=== PATIENT | male | born 1970 | race Hispanic/Latino ===

== ENCOUNTER 2020-01-30 00:22 | Emergency (ER) | payer SELFPAY ==
[2020-01-30] MEDS ORDERED: cloNIDine HCL 0.1 MG TAB ONE (01:14)
[2020-01-30] MEDS ORDERED: AMLODIPINE 5 MG TAB ONE (01:17)
[2020-01-30 02:12] LABS: Absolute Lymphocytes (CBC) 1.1 K/uL (0.7-4.9); Basophils % 0.4 % (0-1.3); Hematocrit 47.2 % (39.6-49.0); Lymphocytes % 9.8 % (15.3-44.8); RBC Red Blood Cell Count 5.03 M/uL (4.33-5.43)
[2020-01-30 02:36] LABS: ALT/SGPT 79 U/L (12-78); AST/SGOT 61 U/L (15-37); Albumin 3.8 g/dL (3.4-5.0); Alkaline Phosphatase 137 U/L (45-117); BUN Blood Urea Nitrogen 15 mg/dL (7-18); Bicarbonate 33 mmol/L (21-32); Bilirubin Direct 0.1 mg/dL (0-0.2); Bilirubin Total 0.5 mg/dL (0.2-1.0); Glucose Level 242 mg/dL (74-106); Magnesium 2.1 mg/dL (1.8-2.4); NT PRO-BNP 78 pg/mL (<125); Potassium 3.7 mmol/L (3.5-5.1); Protein, Total 7.4 g/dL (6.4-8.2); Sodium Level 137 mmol/L (136-145); Troponin (Emerg Dept Use Only) 0.02 ng/mL (0.0-0.045)
[2020-01-30 02:43] LABS: Urine Blood NEGATIVE (NEG); Urine Glucose 1+ (NEG); Urine Protein NEGATIVE (NEG); Urine Specific Gravity 1.025 (1.005-1.030); Urine pH 7.5 (5.0-7.0)
--- NOTE | 2020-01-30 02:43 | ER ---
Nurse's Notes [facility] Name: Zay Werner Jr Age: 49 yrs Sex: Male : 1970 Arrival Date: 01/30/2020 Time: 00:23 Bed 6 Private MD: Diagnosis: Essential (primary) hypertension;Acute sinusitis;Obesity, unspecified;Low back pain;Tobacco abuse counseling;Tobacco use;Type 2 diabetes mellitus;Hyperglycemia, unspecified Presentation: 01/29 00:33 Chief complaint: Patient states: i have dry cough for 2 weeks, pounding headache in the mg2 left mosque and mild bilateral flank pain for 1 week. denies fever. Coronavirus screen: Proceed with normal triage. Patient reports a cough. Patient denies shortness of breath or difficulty breathing. Patient denies measured and/or subjective temperature greater than 100.4F prior to today's visit. Patient denies travel on a cruise ship or to a country the [facility] currently lists as an affected area. Patient denies contact with known and/or suspected case of COVID-19. Ebola Screen: No symptoms or risks identified at this time. Initial Sepsis Screen: Does the patient meet any 2 criteria? No. Patient's initial sepsis screen is negative. Does the patient have a suspected source of infection? No. Patient's initial sepsis screen is negative. Risk Assessment: Do you want to hurt yourself or someone else? Patient reports no desire to harm self or others. Onset of symptoms was January 2020. 00:33 Method Of Arrival: Ambulatory mg2 00:33 Acuity: UMBERTO 3 mg2 Historical: - Allergies: 00:38 No Known Allergies; mg2 - Home Meds: 00:38 None [Active]; mg2 - PMHx: 00:38 Hypertension; mg2 - PSHx: 00:38 None; mg2 - Immunization history:: Flu vaccine is not up to date. - Social history:: Smoking status: Patient reports the use of cigarette tobacco products, denies chronic smoking, but will smoke occasionally, smokes one-half pack cigarettes per day, Patient uses alcohol, occasionally. Patient/guardian denies using street drugs, IV drugs. Screenin:38 Abuse screen: Denies threats or abuse. Denies injuries from another. Nutritional mg2 screening: No deficits noted. Tuberculosis screening: No symptoms or risk factors identified. Fall Risk. Assessment: 02:00 General: Appears in no apparent distress. comfortable, Behavior is calm, cooperative. mg2 Pain: Complains of pain in back. Neuro: Level of Consciousness is awake, alert, obeys commands, Oriented to person, place, time, situation, Reports headache. Cardiovascular: Capillary refill < 3 seconds Patient's skin is warm and dry. Respiratory: Reports cough that is non-productive, dry, since 2 weeks Airway is patent Respiratory effort is even, unlabored, Respiratory pattern is regular, symmetrical. GI: No signs and/or symptoms were reported involving the gastrointestinal system. : Reports pain in bilateral flank(s). EENT: No signs and/or symptoms were reported regarding the EENT system. Derm: Skin is intact, is healthy with good turgor, Skin is pink, warm \T\ dry. normal. Musculoskeletal: Circulation, motion, and sensation intact. Capillary refill < 3 seconds. 02:31 Reassessment: Patient appears in no apparent distress at this time. Patient and/or mg2 family updated on plan of care and expected duration. Pain level reassessed. Patient is alert, oriented x 3, equal unlabored respirations, skin warm/dry/pink. 03:01 Reassessment: Patient denies pain at this time. Patient states feeling better. mg2 Vital Signs: 00:33 BP 213 / 122; Pulse 99; Resp 18; Temp 98.1(O); Pulse Ox 96% on R/A; mg2 01:59 BP 173 / 110; Pulse 95; Resp 18; Pulse Ox 94% on R/A; mg2 02:00 BP 166 / 98; Pulse 94; Resp 18; Pulse Ox 94% on R/A; mg2 02:50 BP 153 / 98; Pulse 94; Resp 18; Pulse Ox 94% on R/A; mg2 ED Course: 00:23 Patient arrived in ED. cl3 00:26 Jayy Andres MD is Attending Physician. shakir 00:33 Finesse Drake RN is Primary Nurse. mg2 00:38 Triage completed. mg2 00:38 Arm band placed on. mg2 00:39 No provider procedures requiring assistance completed. mg2 01:38 XRAY Chest (1 view) In Process Unspecified. EDMS 01:39 Lumbar Spine (3 Views) XRAY: low back pain In Process Unspecified. EDMS 01:40 Inserted saline lock: 20 gauge in right forearm, using aseptic technique. Blood mg2 collected. 02:01 Patient has correct armband on for positive identification. Call light in reach. Side mg2 rails up X 1. hall monitor on. Pulse ox on. NIBP on. Door closed. Warm blanket given. 02:42 Dee Dee Tinajero MD is Referral Physician. shakir 02:42 Domo Flannery MD is Referral Physician. shakir 03:02 IV discontinued, intact, bleeding controlled, No redness/swelling at site. Pressure mg2 dressing applied. Administered Medications: 01:30 Drug: Norvasc 10 mg Route: PO; mg2 02:31 Follow up: Response: No adverse reaction; Blood pressure is lowered mg2 01:35 Drug: cloNIDine 0.1 mg Route: PO; mg2 02:31 Follow up: Response: No adverse reaction; Blood pressure is lowered mg2 03:01 Drug: Lisinopril 5 mg Route: PO; mg2 03:01 Follow up: Response: No adverse reaction; Medication administered at discharge. mg2 Outcome: 02:42 Discharge ordered by . shakir 03:02 Discharged to home ambulatory. mg2 03:02 Condition: stable 03:02 Discharge instructions given to patient, Instructed on discharge instructions, follow up and referral plans. medication usage, Demonstrated understanding of instructions, follow-up care, medications, Prescriptions given X 4. 03:03 Patient left the ED. mg2 Signatures: Dispatcher [employer] EDMS Jayy Andres MD MD cha Gardose, Michele, RN RN mg2 Catherine Delcid cl3 Corrections: (The following items were deleted from the chart) 02:50 02:30 BP 166 / 98; Pulse 94bpm; Resp 18bpm; Pulse Ox 94% RA; mg2 mg2 02:50 02:00 BP 153 / 98; Pulse 94bpm; Resp 18bpm; Pulse Ox 94% RA; mg2 mg2
--- NOTE | 2020-01-30 02:43 | EDPHYS ---
Physician Documentation [facility] Name: Zay Werner Jr Age: 49 yrs Sex: Male : 1970 Arrival Date: 01/30/2020 Time: 00:23 Bed 6 Private MD: DINA Physician Jayy Andres HPI: 01/29 00:50 This 49 yrs old Male presents to ER via Ambulatory with complaints of High shakir Blood Pressure, Coughing Up Blood. 00:50 The patient has elevated blood pressure and discovered this at home. Onset: The shakir symptoms/episode began/occurred 1 week(s) ago. Modifying factors: The symptoms are aggravated by activity, The symptoms are alleviated by remaining still. Historical: - Allergies: 00:38 No Known Allergies; mg2 - Home Meds: 00:38 None [Active]; mg2 - PMHx: 00:38 Hypertension; mg2 - PSHx: 00:38 None; mg2 - Immunization history:: Flu vaccine is not up to date. - Social history:: Smoking status: Patient reports the use of cigarette tobacco products, denies chronic smoking, but will smoke occasionally, smokes one-half pack cigarettes per day, Patient uses alcohol, occasionally. Patient/guardian denies using street drugs, IV drugs. ROS: 00:51 Constitutional: Negative for fever, chills, and weight loss, Eyes: Negative for injury, shakir pain, redness, and discharge, Neck: Negative for injury, pain, and swelling, Cardiovascular: Negative for chest pain, palpitations, and edema, Abdomen/GI: Negative for abdominal pain, nausea, vomiting, diarrhea, and constipation, Back: Negative for injury and pain, : Negative for injury, bleeding, discharge, and swelling, MS/Extremity: Negative for injury and deformity, Skin: Negative for injury, rash, and discoloration, Neuro: Negative for headache, weakness, numbness, tingling, and seizure, Psych: Negative for depression, anxiety, suicide ideation, homicidal ideation, and hallucinations, Allergy/Immunology: Negative for hives, rash, and allergies, Endocrine: Negative for neck swelling, polydipsia, polyuria, polyphagia, and marked weight changes, Hematologic/Lymphatic: Negative for swollen nodes, abnormal bleeding, and unusual bruising. 00:51 ENT: Positive for nose bleed. 00:51 Respiratory: Positive for cough. 00:51 Back: Positive for decreased range of motion, pain at rest, of the left low back and right low back. 02:30 Neuro: Negative for headache, pt complains of facial pain, maxillary pain and frontal shakir sinus pain vs headache. Exam: 00:51 Constitutional: This is a well developed, well nourished patient who is awake, alert, shakir and in no acute distress. Head/Face: Normocephalic, atraumatic. Eyes: Pupils equal round and reactive to light, extra-ocular motions intact. Lids and lashes normal. Conjunctiva and sclera are non-icteric and not injected. Cornea within normal limits. Periorbital areas with no swelling, redness, or edema. Neck: Trachea midline, no thyromegaly or masses palpated, and no cervical lymphadenopathy. Supple, full range of motion without nuchal rigidity, or vertebral point tenderness. No Meningismus. Chest/axilla: Normal chest wall appearance and motion. Nontender with no deformity. No lesions are appreciated. Cardiovascular: Regular rate and rhythm with a normal S1 and S2. No gallops, murmurs, or rubs. Normal PMI, no JVD. No pulse deficits. Respiratory: Lungs have equal breath sounds bilaterally, clear to auscultation and percussion. No rales, rhonchi or wheezes noted. No increased work of breathing, no retractions or nasal flaring. Abdomen/GI: Soft, non-tender, with normal bowel sounds. No distension or tympany. No guarding or rebound. No evidence of tenderness throughout. Back: No spinal tenderness. No costovertebral tenderness. Full range of motion. Skin: Warm, dry with normal turgor. Normal color with no rashes, no lesions, and no evidence of cellulitis. MS/ Extremity: Pulses equal, no cyanosis. Neurovascular intact. Full, normal range of motion. Neuro: Awake and alert, GCS 15, oriented to person, place, time, and situation. Cranial nerves II-XII grossly intact. Motor strength 5/5 in all extremities. Sensory grossly intact. Cerebellar exam normal. Normal gait. Psych: Awake, alert, with orientation to person, place and time. Behavior, mood, and affect are within normal limits. 00:51 ENT: Nose: is normal, no acute changes, Mouth: is normal, no acute changes, Lips: normal, Oral mucosa: normal, pink and intact, moist, Gums: normal with healthy appearance, Posterior pharynx: no acute changes, Airway: normal, no evidence of obstruction. 02:33 Neck: ROM/movement: is normal, no acute changes, Meningeal signs: are not present, [facility] Kernig's sign is negative, Brudzinski's sign is negative, nuchal rigidity, is not appreciated. 02:38 ECG was reviewed by the Attending Physician. [facility] Vital Signs: 00:33 BP 213 / 122; Pulse 99; Resp 18; Temp 98.1(O); Pulse Ox 96% on R/A; mg2 01:59 BP 173 / 110; Pulse 95; Resp 18; Pulse Ox 94% on R/A; mg2 02:00 BP 166 / 98; Pulse 94; Resp 18; Pulse Ox 94% on R/A; mg2 02:50 BP 153 / 98; Pulse 94; Resp 18; Pulse Ox 94% on R/A; mg2 MDM: 00:26 Patient medically screened. [facility] 00:55 Data reviewed: vital signs, nurses notes, lab test result(s), EKG, radiologic studies, [facility] plain films. 01/29 00:49 Order name: Basic Metabolic Panel; Complete Time: 02:40 [facility] 01/29 00:49 Order name: CBC with Diff; Complete Time: 02:19 [facility] 01/29 00:49 Order name: LFT's; Complete Time: 02:40 [facility] 01/29 00:49 Order name: Magnesium; Complete Time: 02:40 [facility] 01/29 00:49 Order name: NT PRO-BNP; Complete Time: 02:40 [facility] 01/29 00:49 Order name: Troponin (emerg Dept Use Only); Complete Time: 02:40 [facility] 01/29 00:49 Order name: XRAY Chest (1 view) [facility] 01/29 00:49 Order name: EKG; Complete Time: 00:50 [facility] 01/29 00:49 Order name: Cardiac monitoring; Complete Time: 01:59 [facility] 01/29 00:49 Order name: Lumbar Spine (3 Views) XRAY: low back pain [facility] 01/29 01:44 Order name: Urine Dipstick--Ancillary (enter results) ne 01/29 00:49 Order name: EKG - Nurse/Tech; Complete Time: 01:59 [facility] 01/29 00:49 Order name: IV Saline Lock; Complete Time: [facility] 01/29 00:49 Order name: Labs collected and sent; Complete Time: [facility] 01/29 00:49 Order name: O2 Per Protocol; Complete Time: [facility] 01/29 00:49 Order name: O2 Sat Monitoring; Complete Time: [facility] 01/29 00:49 Order name: Urine Dipstick-Ancillary (obtain specimen); Complete Time: [facility] EC:38 Rate is 90 beats/min. Rhythm is regular. QRS [place] is Normal. NM interval is normal. QRS shakir interval is normal. QT interval is normal. No Q waves. T waves are Normal. No ST changes noted. Clinical impression: Normal ECG and No evidence of ischemia. Administered Medications: 01:30 Drug: Norvasc 10 mg Route: PO; mg2 02:31 Follow up: Response: No adverse reaction; Blood pressure is lowered mg2 01:35 Drug: cloNIDine 0.1 mg Route: PO; mg2 02:31 Follow up: Response: No adverse reaction; Blood pressure is lowered mg2 03:01 Drug: Lisinopril 5 mg Route: PO; mg2 03:01 Follow up: Response: No adverse reaction; Medication administered at discharge. mg2 Disposition: 01/30/20 02:42 Discharged to Home. Impression: Essential (primary) hypertension, Acute sinusitis, Obesity, unspecified, Low back pain, Tobacco abuse counseling, Tobacco use, Type 2 diabetes mellitus, Hyperglycemia, unspecified. - Condition is Stable. - Discharge Instructions: Back Pain, Adult, Hypertension, Musculoskeletal Pain, Obesity, Adult, Hypertension, [id number], Back Pain, Adult, [id number], Tobacco Use Disorder, Diabetes Mellitus and Food, How to Take Your Blood Pressure, [id number], Managing Your Hypertension, Type 2 Diabetes Mellitus, Self Care, Adult, Type 2 Diabetes Mellitus, Self Care, Adult, [id number]. - Prescriptions for Norvasc 5 mg Oral Tablet - take 1 tablet by ORAL route once daily; 20 tablet. Tylenol- Codeine #3 300-30 mg Oral Tablet - take 2 tablets by ORAL route every 6 hours As needed; 24 tablet. Lisinopril 5 mg Oral Tablet - take 1 tablet by ORAL route once daily; 20 tablet. Bactrim DS 800- 160 mg Oral Tablet - take 1 tablet by ORAL route every 12 hours for 10 days; 20 tablet. - Medication Reconciliation Form, Thank You Letter, Antibiotic Education, Prescription Opioid Use form. - Follow up: Private Physician; When: 2 - 3 days; Reason: Recheck today's complaints, Continuance of care, Re-evaluation by your physician. Follow up: Dee Dee Tinajero; When: 5 - 6 days; Reason: Recheck today's complaints, Re-evaluation by your physician. Follow up: A Flannery; When: 2 - 3 days; Reason: Recheck today's complaints, Re-evaluation by your physician. - Problem is new. - Symptoms have improved. Signatures: Dispatcher [employer] EDMS Jayy Andres MD MD cha Gardose, Michele, RN RN mg2 Corrections: (The following items were deleted from the chart) 03:03 02:42 01/30/2020 02:42 Discharged to Home. Impression: Essential (primary) mg2 hypertension; Acute sinusitis; Obesity, unspecified; Low back pain; Tobacco abuse counseling; Tobacco use; Type 2 diabetes mellitus; Hyperglycemia, unspecified. Condition is Stable. Discharge Instructions: Back Pain, Adult, Hypertension, Musculoskeletal Pain, Obesity, Adult, Hypertension, Raek-ff-[id number], Back Pain, Adult, Mtir-mr-Gyur, Tobacco Use Disorder, How to Take Your Blood Pressure, [id number], Managing Your Hypertension. Prescriptions for Norvasc 5 mg Oral Tablet - take 1 tablet by ORAL route once daily; 20 tablet, Tylenol-Codeine #3 300-30 mg Oral Tablet - take 2 tablets by ORAL route every 6 hours As needed; 24 tablet, Lisinopril 5 mg Oral Tablet - take 1 tablet by ORAL route once daily; 20 tablet, Bactrim DS 800-160 mg Oral Tablet - take 1 tablet by ORAL route every 12 hours for 10 days; 20 tablet. and Forms are Medication Reconciliation Form, Thank You Letter, Antibiotic Education, Prescription Opioid Use. Follow up: Private Physician; When: 2 - 3 days; Reason: Recheck today's complaints, Continuance of care, Re-evaluation by your physician. Follow up: Dee Dee Tinajero; When: 5 - 6 days; Reason: Recheck today's complaints, Re-evaluation by your physician. Follow up: A Flannery; When: 2 - 3 days; Reason: Recheck today's complaints, Re-evaluation by your physician. Problem is new. Symptoms have improved. shakir
[2020-01-30] MEDS ORDERED: lisinopriL 5 MG TAB ONE (02:57)
[2020-01-30 03:09] VITALS: TEMP 98.1
[2020-01-30 03:11] VITALS: O2SAT 94
[2020-01-30 03:13] VITALS: BP 153/98
--- NOTE | 2020-01-30 07:34 | RAD REPORT ---
EXAM DESCRIPTION: RAD - Chest Single View - 01/30/2020 1:39 am CLINICAL HISTORY: COUGH Chest pain. COMPARISON: CHEST SINGLE VIEW dated 05/14/2014; CHEST PA AND LAT 2 VIEW dated 04/01/2014; CHEST SINGLE VIEW dated 06/23/2011 FINDINGS: Portable technique limits examination quality. The lungs are grossly clear. The heart is normal in size. No displaced fractures. IMPRESSION: No acute intrathoracic process suspected.
--- NOTE | 2020-01-30 07:35 | RAD REPORT ---
EXAM DESCRIPTION: RAD - Lumbar Spine 3 Views - 01/30/2020 1:39 am CLINICAL HISTORY: PAIN Radiculopathy COMPARISON: No comparisons FINDINGS: Vertebral body heights appear maintained. No compression fracture noted. Mild spondylosis is seen at L5-S1 with disc thinning and small posterior osteophyte. Small posterior osteophyte also s een at L3-4 and L4-5. No spondylolysis or spondylolisthesis. IMPRESSION: Mild lower lumbar spondylosis.
--- NOTE | 2020-01-31 12:06 | EKG ---
Test Date: 2020-01-30 Test Time: 01:38:20 Environmental Conflict Manager: MATEUSZ MEASUREMENT RESULTS: Intervals: Rate: 90 PA: 164 QRSD: 104 QT: 388 QTc: 474 Mullen: P: 49 PA: 164 QRS: -47 T: 45 INTERPRETIVE STATEMENTS: Normal sinus rhythm Incomplete right bundle branch block Left anterior fascicular block Inferior infarct, age undetermined Abnormal ECG Compared to ECG 05/14/2014 19:35:48 Incomplete right bundle-branch block now present Left anterior fascicular block now present Myocardial infarct finding now present T-wave abnormality no longer present Electronically Signed On 01-31-20 12:03:07 CDT by David Hernnadez
== END 2020-01-30 03:03 | disposition home or self-care (01) ==
LOC: ER 00:22
DX: J01.90 Acute sinusitis, unspecified (principal); I10 Essential (primary) hypertension; M54.5 Low back pain; E11.65 Type 2 diabetes mellitus with hyperglycemia; E66.9 Obesity, unspecified; Z72.0 Tobacco use; Z71.6 Tobacco abuse counseling
CPT/HCPCS: 36415; 71045; 72100; 80048; 80076; 81003; 83735; 83880; 84484; 85025; 93005; 99284

== ENCOUNTER 2022-02-17 21:24 | Inpatient (IN) | payer SELFPAY ==
--- OUTSIDE RECORDS SUMMARY | 2022-02-17 21:27 | XMS REPORT | Continuity of Care Document ---
:1970 Author Organization [facility] t Address [facility] [place] [address] Care Team Providers Name Role Phone PCP, DOES NOT HAVE A Primary Care Physician Unavailable Tay Cardenas Attending Clinician Tay CHAVEZ Attending Clinician Unavailable Tay CHAVEZ Admitting Clinician Unavailable Problems This patient has no known problems. Allergies, Adverse Reactions, Alerts Allergy Allergy Status Severity Reaction(s) Onset Inactive Treating Comm ents Source Name Type Date Date Clinician NO KNOWN Drug Active Univers ALLERGIE Class ity of S [facility] Social History Social Habit Start Date Stop Date Quantity Comments Source [facility] Smoking Status Start Date Stop Date Source Unknown if ever smoked [facility] Medications Ordered Filled Start Stop Current Ordering Indication Dosage Frequency Signature Comments Components Source Medication Medication Date Date Medication? Clinician (SIG) Name Name cloNIDine 2020- No .2mg 0.2 mg, Univ ers (CATAPRES) 12-30 Oral, ity of tablet 0.2 01:30: 00:25 ONCE, 1 Bipin as mg 00 :00 dose, [facility] 12/30/19 at [place] 2030, STAT amLODIPine 2020-0 Yes [id number] 10mg Take 1 U nivers 10 mg 3-16 tablet by ity of tablet 00:00: mouth [place] 00 daily. [facility] Vital Signs Vital Name Observation Time Observation Value Comments Source Systolic blood 2019-12-31 01:00:00 162 mm[Hg] Univer sity of pressure [facility] Diastolic blood 2019-12-31 01:00:00 98 mm[Hg] Unive rsity of pressure [facility] Heart rate 2019-12-31 01:00:00 81 /min [facility] Respiratory rate 2019-12-31 01:00:00 16 /min [facility] Oxygen saturation in 2019-12-31 01:00:00 98 /min [facility] Arterial blood by [facility] Pulse oximetry Branch Body temperature 2019-12-30 23:02:00 36.78 Yessi [facility] Body weight 2019-12-30 23:02:00 117.935 kg [facility] Procedures Procedure Date / Time Performing Clinician Source Performed CT HEAD WO CONTRAST 2019-12-31 00:42:33 Kenn Chavez [facility] HEPATIC FUNCTION PANEL 2019-12-31 00:33:00 Kenn Chavez [facility] ([id number]) (ALB,T.PRO,BILI [facility] T,BU/BC,ALT,AST,ALK PHOS) BASIC METABOLIC PANEL 2019-12-31 00:33:00 Kenn Chavez [facility] (NA, K, CL, CO2, [facility] GLUCOSE, BUN, CREATININE, CA) CBC WITH DIFFERENTIAL 2019-12-31 00:33:00 Kenn Chavez [facility] ADC,CLC OR LCC ONLY - 2019-12-31 00:33:00 Kenn Chavez [facility] INFLUENZA A & B DIRECT Medical [facility] ranch ANTIGEN NOTICE OF PRIVACY 2019-12-30 22:51:05 Doctor Unassigned, No [facility] PRACTICES Name [facility] Encounters Start End Encounter Admission Attending Care Care Encounter Source Date/Time Date/Time Type Type Clinicians Facility Department ID 2019-12-30 2019-12-30 Emergency Kenn Chavez [facility] [id number] Univers 18:03:19 20:58:00 T Denise [id number] i ty [facility] [id number] [facility] [id number] Medi af[place] 084 Branch 2019-12-30 2019-12-30 Emergency X KENN CHAVEZ [facility] ERT [id number] Univers 18:03:19 20:58:00 y [facility] Results Test Description Test Time Test Comments Results Result Comments Source ADC,CLC OR LCC ONLY - INFLUENZA A & B DIRECT ANTIGEN 2019-12 01:04:00 Test Item Value Reference Range Interpretation Comme nts Influenza A (test code = 45411-6) Negative Negative Influenza B (test code = 42250-0) Negative Negative Lab Interpretation (test code = 59891-8) Normal [facility] (ALB, T.PRO, BILI T, BU/BC, ALT, AST, ALK PHOS)2019-12-31 00:54:00 Test Item Value Reference Range Interpretation Comments TOTAL BILI (test code = 7072117513) 0.3 mg/dL 0.1-1.1 BILI UNCON (test code = 7348577530) 0.0 mg/dL 0.1-1.1 L BILI CONJ (test code = 0617300874) 0.0 mg/dL 0-0.3 T PROTEIN (test code = 4419808102) 7.4 g/dL 6.3-8.2 ALBUMIN (test code = 0082001179) 4.4 g/dL 3.5-5 ALK PHOS (test code = 7434701425) 137 U/L 34-122 H ALTv (test code = 1742-6) 47 U/L 5-50 AST(SGOT) (test code = 7484138979) 40 U/L 13-40 Lab Interpretation (test code = Abnormal 61312-9) [facility] (NA, K, CL, CO2, GLUCOSE, BUN, CREATININE, CA)2019-12-31 00:54:00 Test Item Value Reference Range Interpretation Comments NA (test code = 140 mmol/L 135-145 8282489635) K (test code = 3.8 mmol/L 3.5-5 0381415281) CL (test code = 100 mmol/L 98-108 6951561371) CO2 TOTAL (test code = 31 mmol/L 23-31 2032480379) AGAP (test code = 2-16 2883781085) BUN (test code = 14 mg/dL 7-23 3185503590) GLUCOSE (test code = 169 mg/dL 70-110 H 3223777634) CREATININE (test code = 0.88 mg/dL 0.6-1.25 1866434407) CALCIUM (test code = 9.5 mg/dL 8.6-10.6 5479925252) eGFR Calculation mL/min/1.73m2 (Non-) (test code = 3435492684) eGFR Calculation mL/min/1.73m2 () (test code = 2261178077) HARIKA (test code = HARIKA) Association of Glomerular Filtration Rate (GFR) and Staging of Kidney Disease* + --+ --+ ------+| GFR (mL/min/1.73 m2) ?| With Kidney Damage ?| ?Without Kidney Damage+ --------+ --------+ +| ?>90 ?| ?Stage one ?| ? Normal ?+ ---+ ---+ -------+| ?60-89 ?| ?Stage two ?| ? Decreased GFR ? + --+ --+ ------+| ?30-59 ?| ?Stage three ?| ? Stage three ? + --+ --+ ------+| ?15-29 ?| ?Stage four ? | ? Stage four ?+ ---+ ---+ -------+| ?<15 (or dialysis) ? ?| ?Stage five ? | ? Stage five ?+ ---+ ---+ -------+ *Each stage assumes the associated GFR level has been in effect for at least three months. ?Stages 1 to 5, with or without kidney disease, indicate chronic kidney disease. Notes: Determination of stages one and two (with eGFR >59mL/min/1.73 m2) requires estimation of kidney damage for at least three months as defined by structural or functional abnormalities of the kidney, manifested by either:Pathological abnormalities or Markers of kidney damage (including abnormalities in the composition of the blood or urine or abnormalities in imaging tests). Lab Interpretation Abnormal (test code = 37535-1) [facility] W/O [id number] 00:46:04No acute findings. HISTORY:Headache, acute, normal neuro exam TECHNIQUE: Noncontrast head CT was performed. COMPARISON:None. FINDINGS: The ventricles and sulci are appropriate for patient's age. There is no midline shift. The basal cisterns are preserved. No largevascular territory infarction, intracranial hemorrhage or mass effect isseen. The extracranial tissues demonstrate no acute findings. [facility], Radiant Results Inft User - 12/30/2019 7:47 PM CDTHISTORY:Headache, acute, normal neuro exam TECHNIQUE: Noncontrast head CT was performed.COMPARISON:None.FINDINGS:The ventricles and sulci are appropriate for patient's age.There is no midline shift. The basal cisterns are preserved. No largevascularterritory infarction, intracranial hemorrhage or mass effect isseen.The extracranial tissues demonstrate no acute findings.IMPRESSIONNo acute findings.[facility] WITH [id number] 00:41:00 Test Item Value Reference Range Interpretation Comments WBC (test code = See_Comment [Automated message] 3690-2) The system [employer] generated this result transmitted ref erence range: 4.20 - 1 0.70 10*3/?L. The re ference range was not u sed to interpret this result as normal/abnor mal. RBC (test code = See_Comment [Automated message] 789-8) The system [employer] generated this result transmitted ref erence range: 4.26 - 5 .52 10*6/?L. The re ference range was not u sed to interpret this result as normal/abnor mal. HGB (test code = 16.3 g/dL 12.2-16.4 718-7) HCT (test code = 48.6 % 38.4-49.3 4544-3) MCV (test code = 94.9 fL 81.7-95.6 787-2) MCH (test code = 31.8 pg 26.1-32.7 785-6) MCHC (test code = 33.5 g/dL 31.2-35 786-4) RDW-SD (test code 43.0 fL 38.5-51.6 = 68782-2) RDW-CV (test code 12.3 % 12.1-15.4 = 788-0) PLT (test code = See_Comment [Automated message] 777-3) The system [employer] generated this result transmitted ref erence range: 150 - 32 8 10*3/?L. The re ference range was not u sed to interpret this result as normal/abnor mal. MPV (test code = 9.8 fL 9.8-13 34910-3) NRBC/100 WBC (test See_Comment [Automat ed message] code = 0380911394) The syste m which generated this result transmitted ref erence range: 0.0 - 10 .0 /100 WBCs. The refer ence range was not u sed to interpret this result as normal/abnor mal. NRBC x10^3 (test <0.01 See_Comment [Automated message] code = 0459274604) The syste m which generated this result transmitted ref erence range: 10*3/?L. The reference range was not used to interpr et this result as normal/abnormal . GRAN MAT (NEUT) % 65.7 % (test code = 770-8) IMM GRAN % (test 0.50 % code = 3974243109) LYMPH % (test code 22.3 % = 736-9) MONO % (test code 9.3 % = 5905-5) EOS % (test code = 1.6 % 713-8) BASO % (test code 0.6 % = 706-2) GRAN MAT 5.71 10*3/uL 1.99-6.95 x10^3(ANC) (test code = 8900288829) IMM GRAN x10^3 0.04 10*3/uL 0-0.06 (test code = 7651761307) LYMPH x10^3 (test 1.94 10*3/uL 1.09-3.23 code = 731-0) MONO x10^3 (test 0.81 10*3/uL 0.36-1.02 code = 742-7) EOS x10^3 (test 0.14 10*3/uL 0.06-0.53 code = 711-2) BASO x10^3 (test 0.05 10*3/uL 0.01-0.09 code = 704-7) [facility]"
[2022-02-17] MEDS ORDERED: lisinopriL 20 MG TAB ONE (22:55)
[2022-02-17 22:59] LABS: Absolute Lymphocytes (CBC) 1.5 K/uL (0.7-4.9); Hematocrit 45.1 % (39.6-49.0); Lymphocytes % 19.8 % (15.3-44.8); MPV 8.6 fL (7.6-11.3); RBC Red Blood Cell Count 4.82 M/uL (4.33-5.43)
[2022-02-17 23:17] LABS: Potassium 3.9 mmol/L (3.5-5.1)
[2022-02-17 23:19] LABS: Troponin High Sensitivity 62.6 pg/mL (<58.9)
[2022-02-17] MEDS ORDERED: ASPIRIN 81 MG CHEWABLE TABLET ONE (23:50)
[2022-02-17] MEDS ORDERED: CLOPIDOGREL 75 MG TABLET ONE (23:51)
[2022-02-17] MEDS ORDERED: ENOXAPARIN 100 MG/ML SYR SQ ONE (23:51)
--- NOTE | 2022-02-17 23:56 | EDPHYS ---
Physician Documentation [facility] Name: Zay Werner Jr Age: 51 yrs Sex: Male : 1970 Arrival Date: 02/17/2022 Time: 21:26 Bed 18 Private MD: ED Physician Wellington Yuen HPI: 02/18 01:52 This 51 yrs old Male presents to ER via Ambulatory with complaints of High kdr Blood Pressure. 01:52 The patient has elevated blood pressure and discovered this at home. Onset: The kdr symptoms/episode began/occurred at an unknown time. Modifying factors: The symptoms are aggravated by nothing. Associated signs and symptoms: Pertinent positives: Epistaxis. Severity of symptoms: At its worst the blood pressure was severe, 220 mm Hg, in the emergency department the blood pressure is 210. The patient has not experienced similar symptoms in the past. The patient has not recently seen a physician. Has known that he has had various health issues however he has not followed up with a physician to validate those concerns and begin any treatment. He presents today stating that he felt little bit off the last few days and had some intermittent nosebleeds patient otherwise is without any acute distress. Historical: - Allergies: 02/17 21:41 No Known Allergies; lp1 - Home Meds: 21:41 None [Active]; lp1 - PMHx: 21:41 Hypertension; lp1 - PSHx: 21:41 None; lp1 - Immunization history:: Adult Immunizations up to date, Client reports having NOT received the Covid vaccine. - Social history:: Smoking status: Patient reports the use of cigarette tobacco products, denies chronic smoking, but will smoke occasionally, Patient uses alcohol, only on a social basis. ROS: 02/18 01:52 Constitutional: Negative for fever, chills, and weight loss, Eyes: Negative for injury, kdr pain, redness, and discharge, ENT: Negative for injury, pain, and discharge, Neck: Negative for injury, pain, and swelling, Cardiovascular: Negative for chest pain, palpitations, and edema, Respiratory: Negative for shortness of breath, cough, wheezing, and pleuritic chest pain, Abdomen/GI: Negative for abdominal pain, nausea, vomiting, diarrhea, and constipation, Back: Negative for injury and pain, : Negative for injury, bleeding, discharge, and swelling, MS/Extremity: Negative for injury and deformity, Skin: Negative for injury, rash, and discoloration, Neuro: Negative for headache, weakness, numbness, tingling, and seizure activity. Psych: Negative for depression, anxiety, suicide ideation, homicidal ideation, and hallucinations, Allergy/Immunology: Negative for hives, rash, and allergies, Endocrine: Negative for neck swelling, polydipsia, polyuria, polyphagia, and marked weight changes, Hematologic/Lymphatic: Negative for swollen nodes, abnormal bleeding, and unusual bruising. ENT: Positive for nose bleed. Exam: :51 Constitutional: This is a well developed, well nourished patient who is awake, alert, kdr and in no acute distress. Head/Face: Normocephalic, atraumatic. Eyes: Pupils equal round and reactive to light, extra-ocular motions intact. Lids and lashes normal. Conjunctiva and sclera are non-icteric and not injected. Cornea within normal limits. Periorbital areas with no swelling, redness, or edema. Neck: Trachea midline, no thyromegaly or masses palpated, and no cervical lymphadenopathy. Supple, full range of motion without nuchal rigidity, or vertebral point tenderness. No Meningismus. Chest/axilla: Normal chest wall appearance and motion. Nontender with no deformity. No lesions are appreciated. Cardiovascular: Regular rate and rhythm with a normal S1 and S2. No gallops, murmurs, or rubs. Normal PMI, no JVD. No pulse deficits. Respiratory: Lungs have equal breath sounds bilaterally, clear to auscultation and percussion. No rales, rhonchi or wheezes noted. No increased work of breathing, no retractions or nasal flaring. Abdomen/GI: Soft, non-tender, with normal bowel sounds. No distension or tympany. No guarding or rebound. No evidence of tenderness throughout. Back: No spinal tenderness. No costovertebral tenderness. Full range of motion. Skin: Warm, dry with normal turgor. Normal color with no rashes, no lesions, and no evidence of cellulitis. MS/ Extremity: Pulses equal, no cyanosis. Neurovascular intact. Full, normal range of motion. Neuro: Awake and alert, GCS 15, oriented to person, place, time, and situation. Cranial nerves II-XII grossly intact. Motor strength 5/5 in all extremities. Sensory grossly intact. Cerebellar exam normal. Normal gait. Psych: Awake, alert, with orientation to person, place and time. Behavior, mood, and affect are within normal limits. Vital Signs: 02/17 21:44 BP 208 / 115; Pulse 88; Resp 18; Temp 97.6(TE); Pulse Ox 97% on R/A; Weight 106.59 kg lp1 (R); Height 5 ft. 5 in. (165.10 cm); Pain /; 22:47 BP 187 / 109; Pulse 77; Resp 12; Pulse Ox 93% on R/A; sm5 02/18 00:20 BP 191 / 100; Pulse 64; Resp 18; Pulse Ox 98% on R/A; ll3 01:02 BP 176 / 90; Pulse 65; Resp 17; Pulse Ox 97% on R/A; ll3 02/17 21:44 Body Mass Index 39.10 (106.59 kg, 165.10 cm) lp1 MDM: 02/17 23:55 Patient medically screened. kdr 02/18 01:52 Data reviewed: vital signs, nurses notes, lab test result(s), radiologic studies. kdr Counseling: I had a detailed discussion with the patient and/or guardian regarding: the historical points, exam findings, and any diagnostic results supporting the discharge/admit diagnosis, lab results, radiology results, the need for further work-up and treatment in the hospital. 02/17 22:41 Order name: Basic Metabolic Panel; Complete Time: 23:32 kdr 02/17 22:41 Order name: CBC with Diff; Complete Time: 23:32 kdr 02/17 22:41 Order name: NT PRO-BNP; Complete Time: 23:32 kdr 02/17 22:41 Order name: Troponin HS; Complete Time: 23:32 kdr 02/17 23:57 Order name: COVID-19/FLU A+B (Document "Date of Onset" if Symptomatic); Complete Time: ll3 07:10 02/18 03:52 Order name: Creatine Phosphokinase; Complete Time: 07:10 EDMS 02/17 22:41 Order name: XRAY Chest (1 view) kdr 02/18 03:52 Order name: CKMB Creatine Kinase MB; Complete Time: 07:10 EDMS 02/18 03:53 Order name: Troponin High Sensitivity; Complete Time: 07:10 EDMS 02/18 03:53 Order name: Lipid Profile; Complete Time: 07:10 EDMS 02/18 03:53 Order name: T4 Free; Complete Time: 07:10 EDMS 02/18 03:53 Order name: Thyroid Stimulating Hormone; Complete Time: 07:10 EDMS 02/18 10:07 Order name: Troponin High Sensitivity EDMS 02/17 22:41 Order name: EKG; Complete Time: 22:42 kdr 02/17 22:41 Order name: Cardiac monitoring; Complete Time: 22:46 kdr 02/17 22:41 Order name: EKG - Nurse/Tech; Complete Time: 22:46 kdr 02/17 22:41 Order name: IV Saline Lock; Complete Time: 22:46 kdr 02/17 22:41 Order name: Labs collected and sent; Complete Time: 22:46 kdr 02/17 22:41 Order name: O2 Per Protocol; Complete Time: 22:46 kdr 02/17 22:41 Order name: O2 Sat Monitoring; Complete Time: 22:46 kdr Administered Medications: 02/17 22:51 Drug: Lisinopril 20 mg Route: PO; ll3 23:56 Follow up: Response: No adverse reaction ll3 23:55 Drug: Lovenox (enoxaparin) 1 mg/kg Route: Sub-Q; Site: abdomen; ll3 02/18 00:32 Follow up: Response: No adverse reaction ll3 02/17 23:56 Drug: Aspirin Chewable Tablet 324 mg Route: PO; ll3 05 00:32 Follow up: Response: No adverse reaction ll3 02/17 23:56 Drug: PlaVIX (clopidogrel) 300 mg Route: PO; ll3 05 00:32 Follow up: Response: No adverse reaction ll3 00:32 Drug: cloNIDine 0.1 mg Route: PO; ll3 01:04 Follow up: Response: No adverse reaction; Blood pressure is lowered ll3 01:40 Drug: Atorvastatin 40 mg Route: PO; ll3 Disposition Summary: 02/17/22 23:55 Hospitalization Ordered Hospitalization Status: Inpatient Admission kdr Provider: Austyn Carmona Condition: Fair kdr Problem: an acute exacerbation kdr Symptoms: have improved kdr Bed/Room Type: Standard kdr Location: [facility] ER HOLD(02/18/22 00:17) Room Assignment: ERHOLD-(02/18/22 00:17) mw Diagnosis - Subsequent non-ST elevation (NSTEMI) myocardial infarction kdr - Hypertensive heart disease without heart failure kdr Forms: - Medication Reconciliation Form kdr - SBAR form kdr Signatures: Dispatcher [employer] EDRosy Perry RN RN Wellington Yuen MD MD kdr Ruth Kyle RN RN lp1 Nahomi Bashir tw5 Suraj Jeffers RN RN 3 Breann Carrera PA PA sb3 Corrections: (The following items were deleted from the chart) 02/17 21:42 21:41 PMHx: None; lp1 lp1 23:56 23:55 Acute on chronic systolic (congestive) heart failure kdr kdr 02/18 00:17 02/17 23:55 Telemetry/MedSurg (Inpatient) kdr mw 02/18 00:17 02/17 23:55 kdr
--- NOTE | 2022-02-17 23:56 | ER ---
Nurse's Notes [facility] Name: Zay Werner Jr Age: 51 yrs Sex: Male : 1970 Arrival Date: 02/17/2022 Time: 21:26 Bed 18 Private MD: Diagnosis: Subsequent non-ST elevation (NSTEMI) myocardial infarction;Hypertensive heart disease without heart failure Presentation: 02/17 21:42 Chief complaint: Patient states: Nose bleed intermittently x 2 days, reports some chest lp1 discomfort, felt like heartburn; Reports taking blood pressure today and it was high. Coronavirus screen: At this time, the client does not indicate any symptoms associated with coronavirus-19. Ebola Screen: No symptoms or risks identified at this time. Risk Assessment: Do you want to hurt yourself or someone else? Patient reports no desire to harm self or others. Onset of symptoms was February 17, 2022. 21:42 Method Of Arrival: Ambulatory lp1 21:42 Acuity: UMBERTO 2 lp1 21:44 Initial Sepsis Screen: Does the patient meet any 2 criteria? No. Patient's initial lp1 sepsis screen is negative. Does the patient have a suspected source of infection? No. Patient's initial sepsis screen is negative. Triage Assessment: 22:46 General: Appears in no apparent distress. Behavior is cooperative. Pain: Complains of sm5 pain in chest. EENT: Reports nose bleeds on and off x2 days. Neuro: No deficits noted. Level of Consciousness is awake, alert, obeys commands, Oriented to person, place, time, situation. Cardiovascular: Reports chest pain, Capillary refill < 3 seconds Patient's skin is warm and dry. Respiratory: No deficits noted. Airway is patent Trachea midline Respiratory effort is even, unlabored. Historical: - Allergies: 21:41 No Known Allergies; lp1 - Home Meds: 21:41 None [Active]; lp1 - PMHx: 21:41 Hypertension; lp1 - PSHx: 21:41 None; lp1 - Immunization history:: Adult Immunizations up to date, Client reports having NOT received the Covid vaccine. - Social history:: Smoking status: Patient reports the use of cigarette tobacco products, denies chronic smoking, but will smoke occasionally, Patient uses alcohol, only on a social basis. Screenin:23 Abuse screen: Denies threats or abuse. Nutritional screening: No deficits noted. ll3 Tuberculosis screening: No symptoms or risk factors identified. Fall Risk No fall in past 12 months (0 pts). No secondary diagnosis (0 pts). IV access (20 points). Ambulatory Aid- None/Bed Rest/Nurse Assist (0 pts). Gait- Normal/Bed Rest/Wheelchair (0 pts) Mental Status- Oriented to own ability (0 pts). Total Zazueta Fall Scale indicates No Risk (0-24 pts). Assessment: 23:20 Reassessment: Reynaearlene from Lab called with a critical lab value, Troponin is 62.6, ERP ll3 notified. 02/18 01:14 General: Chasidy Werner, Mother, . tw5 Vital Signs: 02/17 21:44 BP 208 / 115; Pulse 88; Resp 18; Temp 97.6(TE); Pulse Ox 97% on R/A; Weight 106.59 kg lp1 (R); Height 5 ft. 5 in. (165.10 cm); Pain 1/10; 22:47 BP 187 / 109; Pulse 77; Resp 12; Pulse Ox 93% on R/A; sm5 02/18 00:20 BP 191 / 100; Pulse 64; Resp 18; Pulse Ox 98% on R/A; ll3 01:02 BP 176 / 90; Pulse 65; Resp 17; Pulse Ox 97% on R/A; ll3 02/17 21:44 Body Mass Index 39.10 (106.59 kg, 165.10 cm) lp1 ED Course: 02/17 21:26 Patient arrived in ED. bp1 21:39 Wellington Yuen MD is Attending Physician. kdr 21:41 Arm band placed on right wrist. lp1 21:43 Triage completed. lp1 21:55 Kathryn Melendrez, PIYUSH is Primary Nurse. 5 22:06 Inserted saline lock: 20 gauge in right antecubital area, using aseptic technique. 5 Blood collected. 22:46 Basic Metabolic Panel Sent. 5 22:46 CBC with Diff Sent. 5 22:46 NT PRO-BNP Sent. 5 22:46 Troponin HS Sent. 5 23:23 Patient has correct armband on for positive identification. Bed in low position. Call ll3 light in reach. Side rails up X 1. 23:54 Austyn Carmona is Hospitalizing Provider. kdr 02/18 00:12 XRAY Chest (1 view) In Process Unspecified. EDMS 01:03 No provider procedures requiring assistance completed. Patient admitted, IV remains in ll3 place. No redness/swelling at site. Administered Medications: 02/17 22:51 Drug: Lisinopril 20 mg Route: PO; ll3 23:56 Follow up: Response: No adverse reaction ll3 23:55 Drug: Lovenox (enoxaparin) 1 mg/kg Route: Sub-Q; Site: abdomen; ll3 02/18 00:32 Follow up: Response: No adverse reaction ll3 02/17 23:56 Drug: Aspirin Chewable Tablet 324 mg Route: PO; ll3 02/18 00:32 Follow up: Response: No adverse reaction ll3 02/17 23:56 Drug: PlaVIX (clopidogrel) 300 mg Route: PO; ll3 02/18 00:32 Follow up: Response: No adverse reaction ll3 00:32 Drug: cloNIDine 0.1 mg Route: PO; ll3 01:04 Follow up: Response: No adverse reaction; Blood pressure is lowered ll3 01:40 Drug: Atorvastatin 40 mg Route: PO; ll3 Outcome: 02/17 23:55 Decision to Hospitalize by Provider. kdr 02/18 01:03 Admitted to ER Hold. Please see [facility] for further documentation. ll3 Condition: stable Instructed on the need for admit. 15:39 Patient left the ED. ww Signatures: Dispatcher [employer] EDAL Wellington Yuen MD MD kdr Pena, Laura RN RN lp1 Belia Mayfield Tiffany 5 Suraj Jeffers RN RN ll3 Kathryn Melendrez RN RN 5 Nae Bashir RN RN ww Corrections: (The following items were deleted from the chart) 02/17 21:42 21:41 PMHx: None; lp1 lp1 21:46 21:42 Acuity: UMBERTO 3 lp1 lp1 21:46 21:44 Temp 97.6F Temporal; 106.59 kg Reported; Height 5 ft. 5 in.; BMI: 39.1; Pain lp1 10/25; lp1 23:23 23:20 Reassessment: Cassidy from Lab called with a critical lab value, Troponin is 62.6, ll3 ERP notified. ll3
[2022-02-18] MEDS ORDERED: cloNIDine HCL 0.1 MG TAB ONE (00:35)
[2022-02-18 01:16] LABS: SARS-COV-2 RT PCR NEGATIVE (NEGATIVE)
[2022-02-18] MEDS ORDERED: HYDRALAZINE HCL 20 MG/ML VIAL IV PRN (01:16)
[2022-02-18] MEDS ORDERED: ACETAMINOPHEN 500 MG TAB PO PRN (01:16)
[2022-02-18] MEDS ORDERED: ONDANSETRON 4 MG/2 ML VIAL IV PRN (01:16)
[2022-02-18 01:22] VITALS: BMI 38.9
[2022-02-18] MEDS ORDERED: ATORVASTATIN 20 MG TAB ONE (01:43)
--- NOTE | 2022-02-18 03:21 | P.HP ---
Certification for Inpatient Patient admitted to: Observation With expected LOS: <2 Midnights Patient will require the following post-hospital care: None Practitioner: I am a practitioner with admitting privileges, knowledge of patient current condition, hospital course, and medical plan of care. Services: Services provided to patient in accordance with Admission requirements found in Title 42 Section 412.3 of the Code of Federal Regulations Patient History Date of Service: 02/18/22 Reason for admission: Chest Pain History of Present Illness: Patient is a 51-year-old male with PMH of TIA and HTN who presented to the ED with complaints of high blood pressure. He states that 2 days ago he had a nosebleed and was experiencing some chest pain that he attributed to acid reflux. Today his mom checked his blood pressure and noticed that it was high and told him to come to the ED given the history of chest pain. EKG negative for ST changes, troponin elevated at 62.6, BNP 300. Given therapeutic Lovenox, Plavix, 324 aspirin, and clonidine in the ED. Upon my assessment, patient denies chest pain. will admit patient for observation. Allergies No Known Allergies Allergy (Verified 05/14/14 22:24) Home medications list reviewed: Yes Home Medications: NK [No Home Meds] 02/18/22 - Past Medical/Surgical History Diabetic: No -: Hypertension Past Surgical History: Patient denies surgical history Psychosocial/ Personal History: Patient lives at home with his parents. - Social History Smoking Status: Current some day smoker Alcohol use: Yes CD- Drugs: No Caffeine use: Yes Place of Residence: Home Review of Systems Unremarkable Physical Examination - Physical Exam General: Alert, In no apparent distress, Oriented x3, Obese HEENT: Atraumatic, PERRLA, EOMI, Sclerae nonicteric Neck: Supple, 2+ carotid pulse no bruit, No LAD, Without JVD or thyroid abnormality Respiratory: Clear to auscultation bilaterally, Normal air movement Cardiovascular: Regular rate/rhythm, Normal S1 S2 Gastrointestinal: Normal bowel sounds, No tenderness Musculoskeletal: No tenderness Integumentary: No rashes Neurological: Normal speech, Normal strength at 5/5 x4 extr, Normal tone, Normal affect - Studies Laboratory Data (last 24 hrs) 02/17/22 22:04: WBC 7.7, Hgb 15.5, Hct 45.1, Plt Count 198 02/17/22 22:04: Sodium 139, Potassium 3.9, BUN 11, Creatinine 1.10, Glucose 126 H Assessment and Plan - Problems (Diagnosis) (1) Chest pain Current Visit: Yes Status: Acute Qualifiers: Chest pain type: unspecified Qualified Code(s): R07.9 - Chest pain, unspecified (2) Hypertension Current Visit: Yes Status: Chronic Qualifiers: Hypertension type: primary hypertension Qualified Code(s): I10 - Essential (primary) hypertension (3) Obesity Current Visit: Yes Status: Chronic Qualifiers: Obesity type: due to excess calories Obesity classification: adult class 2 (BMI 35 - 39.9) Serious obesity comorbidity presence: unspecified whether serious comorbidity present Body mass index: BMI 38.0-38.9 Qualified Code(s): E66.09 - Other obesity due to excess calories; Z68.38 - Body mass index [BMI] 38.0-38.9, adult (4) Elevated troponin Current Visit: Yes Status: Acute - Plan -Initial troponin elevated at 62.6. CPK and CK-MB trending. Will trend troponin every 6 hours x2. EKG without ST changes. Cardiology consulted -Patient has a history of HTN but does not take any home medications. Was very hypertensive in the ED requiring clonidine. Continue IV hydralazine -Echo and lipid panel ordered for the morning -Aspirin and atorvastatin daily -Patient received therapeutic Lovenox in the ED. continue prophylactic dose for VTE prophylaxis - Advance Directives Does patient have a Living Will: No Does patient have a Durable POA for Healthcare: No
[2022-02-18 03:51] LABS: CKMB Creatine Kinase MB 1.7 ng/mL (1.0-3.6)
[2022-02-18 03:53] LABS: Thyroid Stimulating Hormone 13.3 uIU/mL (0.360-3.740); Troponin High Sensitivity 56.5 pg/mL (<58.9)
[2022-02-18] MEDS ORDERED: ASPIRIN EC 81 MG TAB PO SCH (09:00)
[2022-02-18] MEDS ORDERED: ENOXAPARIN 40 MG/0.4 ML SQ SCH (09:00)
[2022-02-18] MEDS ORDERED: ASPIRIN EC 81 MG TAB PO ONE (09:59)
[2022-02-18] MEDS ORDERED: ENOXAPARIN 40 MG/0.4 ML SQ ONE (10:00)
[2022-02-18 12:45] VITALS: BP 151/83; TEMP 97.9
--- NOTE | 2022-02-18 13:51 | P.DS ---
Admission Date: 02/18/22 Discharge Date: 02/18/22 Disposition: ROUTINE DISCHARGE Discharge Condition: FAIR Reason for Admission: Chest Pain - Problems (1) Malignant hypertension Current Visit: Yes Status: Acute (2) Hypertriglyceridemia Current Visit: Yes Status: Acute (3) Chest pain Current Visit: Yes Status: Acute Qualifiers: Chest pain type: unspecified Qualified Code(s): R07.9 - Chest pain, unspecified (4) Elevated troponin Current Visit: Yes Status: Acute (5) Obesity Current Visit: Yes Status: Chronic Qualifiers: Obesity type: due to excess calories Obesity classification: adult class 2 (BMI 35 - 39.9) Serious obesity comorbidity presence: unspecified whether serious comorbidity present Body mass index: BMI 38.0-38.9 Qualified Code(s): E66.09 - Other obesity due to excess calories; Z68.38 - Body mass index [BMI] 38.0-38.9, adult Brief History of Present Illness: Patient is a 51-year-old male with PMH of TIA and HTN who presented to the ED with complaints of high blood pressure. He states that 2 days ago he had a nosebleed and was experiencing some chest pain that he attributed to acid reflux. His mom checked his blood pressure and noticed that it was high and told him to come to the ED given the history of chest pain. EKG negative for ST changes, troponin elevated at 62.6, BNP 300. Given therapeutic Lovenox, Plavix, 324 aspirin, and clonidine in the ED. patient placed under observation for further evaluation. Hospital Course: Patient placed under observation on medical floor. Second and third set of troponins came back negative. Patient seen by cardiology who determined that elevated troponin is likely secondary to severe hypertension. Dr. Hernandez recommended antihypertensive with metoprolol and amlodipine. Echocardiogram done. Patient was asymptomatic during the hospital stay. He is deemed stable for discharge by cardiology. Noted his triglyceride is elevated. Heart healthy diet with low-fat/low-cholesterol recommended. Patient also prescribed Tricor for hypertriglyceridemia.. Vital Signs/Physical Exam: Temp Pulse Resp BP Pulse Ox 97.9 F 63 18 151/83 H 100 02/18/22 12:00 02/18/22 12:00 02/18/22 12:00 02/18/22 12:00 02/18/22 12:00 General: Alert, In no apparent distress, Oriented x3 HEENT: Mucous membr. moist/pink Neck: Supple, JVD not distended Respiratory: Clear to auscultation bilaterally, Normal air movement Cardiovascular: No edema, Regular rate/rhythm, Normal S1 S2 Gastrointestinal: Normal bowel sounds, Soft and benign, Non-distended, No tenderness Musculoskeletal: No swelling, No tenderness Integumentary: No rashes, No cyanosis Neurological: Normal strength at 5/5 x4 extr Laboratory Data at Discharge: WBC 7.7 K/uL (4.3-10.9) 02/17/22 22:04 Hgb 15.5 g/dL (13.6-17.9) 02/17/22 22:04 Hct 45.1 % (39.6-49.0) 02/17/22 22:04 Plt Count 198 K/uL (152-406) 02/17/22 22:04 Sodium 139 mmol/L (136-145) 02/17/22 22:04 Potassium 3.9 mmol/L (3.5-5.1) 02/17/22 22:04 BUN 11 mg/dL (7-18) 02/17/22 22:04 Creatinine 1.10 mg/dL (0.55-1.3) 02/17/22 22:04 Glucose 126 mg/dL (74-106) H 02/17/22 22:04 Triglycerides 255 mg/dL (<150) H 02/18/22 02:46 Cholesterol 137 mg/dL (<200) 02/18/22 02:46 HDL Cholesterol 26 mg/dL (40-60) L 02/18/22 02:46 Cholesterol/HDL Ratio 5.27 02/18/22 02:46 Home Medications: Amlodipine [Norvasc*] 5 mg PO DAILY #30 tab 02/18/22 Aspirin [Aspirin EC] 81 mg PO DAILY #30 tablet. 02/18/22 Fenofibrate [Tricor] 48 mg PO DAILY #30 tab 02/18/22 Metoprolol Tartrate 25 mg PO BID #60 tablet 02/18/22 Dunnell-3 Fatty Acids [Dunnell-3] 1,000 mg PO BID #60 capsule 02/18/22 New Medications: Aspirin [Aspirin EC] 81 mg PO DAILY #30 tablet. Metoprolol Tartrate 25 mg PO BID #60 tablet Amlodipine [Norvasc*] 5 mg PO DAILY #30 tab Dunnell-3 Fatty Acids [Dunnell-3] 1,000 mg PO BID #60 capsule Fenofibrate [Tricor] 48 mg PO DAILY #30 tab Diet: AHA Activity: Ad rachelle Followup: David Hernandez MD [ACTIVE - CAN ADMIT] - 1-2 Weeks NONE,NONE [Primary Care Provider] -
--- NOTE | 2022-02-18 14:33 | EKG ---
Test Date: 2022-02-17 Test Time: 21:56:10 Undercoat Sprayer: MATEUSZ MEASUREMENT RESULTS: Intervals: Rate: 84 IN: 164 QRSD: 122 QT: 358 QTc: 423 [place]: P: 56 IN: 164 QRS: 5 T: -32 INTERPRETIVE STATEMENTS: Normal sinus rhythm Right bundle branch block Possible Inferior infarct, age undetermined T wave abnormality, consider lateral ischemia Abnormal ECG Compared to ECG 01/30/2020 01:38:20 Right bundle-branch block now present T-wave abnormality now present Possible ischemia now present Incomplete right bundle-branch block no longer present Left anterior fascicular block no longer present Myocardial infarct finding still present Electronically Signed On 02-18-22 14:32:11 CDT by David Hernandez
[2022-02-18 15:57] VITALS: O2SAT 97
--- NOTE | 2022-02-18 16:48 | CON ---
Date of Consultation: 02/18/2022 Admitted on 02/18/[address] Carmona's service. I saw the patient on 02/18/2022. Reason For Consultation: Hypertensive crisis and elevated troponin. History Of Present Illness: Mr. Werner is 51. No past medical history. No allergies. Does no t take any medications. He came in with headache and mid-epigastric chest pain that is burning in na ture, was found to have a blood pressure of 208/115. It is down now to 126/70 after medication with IV hydralazine and he is asymptomatic. His troponin was slightly elevated. TSH was 13.3. His trigl yceride was 255 with a BNP of 300. Echocardiogram is pending. Past Medical History: Negative. Allergies: NONE. Medications: None. Review of Systems: Negative. Social History: Negative. Family History: Positive for hypertension. Physical Examination: Vital Signs: Stable, afebrile, sinus rhythm. HEENT: Negative. Neck: Supple with no bruit. Chest: Clear. Cardiac: Revealed a regular rhythm and rate with S4 gallops. No murmurs or rubs. Abdomen: Benign. Extremities: Revealed no clubbing, cyanosis, or edema. Diagnostic Data: As stated earlier. Impression And Plan: 1.Hypertension causing elevated troponin. 2.Atypical chest pain, probably gastroesophageal reflux disease. 3.Dyslipidemia. 4.Hypothyroidism. I think he needs to have his thyroid treated, his triglyceride treated. I think he should be on beta blockers as well as Hyzaar when he goes home. I will make an arrangement for him to have an outpati ent stress test and followup in the near future. We will see what the echocardiogram before discharg tabby ROSE/LOW Voice ID: [id number] Report ID: [id number]
[2022-02-18] MEDS ORDERED: ATORVASTATIN 40 MG TAB PO SCH (21:00)
--- NOTE | 2022-02-21 10:58 | ECHO ---
HEIGHT: 5 ft 5 in WEIGHT: 234 lb 15.852 oz DATE OF STUDY: 02/18/[address]: Breann Carrera 2-DIMENSIONAL: YES M.MODE: YES DOPPLER: YES COLOR FLOW: YES TDS: PORTABLE: YES DEFINITY: BUBBLE STUDY: DIAGNOSIS: NON ST ELEVATION MYOCARDIAL INFARCTION CARDIAC HISTORY: CATHERIZATION: SURGERY: PROSTHETIC VALVE: PACEMAKER: MEASUREMENTS (cm) DIASTOLIC (NORMALS) SYSTOLIC (NORMALS) IVSd 1.6 (0.6-1.2) LA Diam 4.6 (1.9-4.0) LVEF 60% LVIDd 4.5 (3.5-5.7) LVIDs 3.1 (2.0-3.5) %FS 32% LVPWd 1.7 (0.6-1.2) Ao Diam 3.4 (2.0-3.7) 2 DIMENSIONAL ASSESSMENT: RIGHT ATRIUM: NORMAL LEFT ATRIUM: DILATED RIGHT VENTRICLE: NORMAL LEFT VENTRICLE: LEFT VENTRICULAR HYPERTROPHY TRICUSPID VALVE: NORMAL MITRAL VALVE: NORMAL PULMONIC VALVE: NORMAL AORTIC VALVE: NORMAL PERICARDIAL EFFUSION: NONE AORTIC ROOT: NORMAL LEFT VENTRICULAR WALL MOTION: NORMAL DOPPLER/COLOR FLOW: NORMAL COMMENTS: LEFT VENTRICULAR HYPERTROPHY CONCENTRIC. NORMAL EJECTION FRACTION. LEFT ATRIAL ENLARGEMENT. NO WALL MOTION ABNORMALITY. TECHNOLOGIST: PRICE FAM
--- NOTE | 2022-02-21 11:46 | RAD REPORT ---
EXAM DESCRIPTION: RAD - Chest Single View - 02/18/2022 12:10 am CLINICAL HISTORY: CHEST PAIN. COMPARISON: None. TECHNIQUE: Single view AP chest radiograph(s). FINDINGS: The lungs are clear. No pulmonary infiltrate or edema identified. No pleural effusion. N o pneumothorax. Nonenlarged cardiomediastinal silhouette. No significant osseous abnormality. IMPRESSION: No acute cardiopulmonary abnormality identified by radiograph. Electronically signed by: Patience Schaffer MD 02/18/2022 12:20 AM CDT Due to temporary technical issues with the PACS/Fluency reporting system, reports are being signed by the in house radiologist without review as a courtesy to ensure prompt reporting. The interpreting r adiologist is fully responsible for the content of the report.
== END 2022-02-18 16:13 | disposition home or self-care (01) | DRG 305 ==
LOC: ER 21:24 → ERHOLD 02-18 00:59 → OBSVTOIN 02-18 07:54
PROVIDERS: ADMIT Internal Medicine; ATTEND Internal Medicine
DX: I10 Essential (primary) hypertension (principal); R07.89 Other chest pain; E03.9 Hypothyroidism, unspecified; K21.9 Gastro-esophageal reflux disease without esophagitis; E78.1 Pure hyperglyceridemia; R77.8 Other specified abnormalities of plasma proteins; E66.09 Other obesity due to excess calories; Z68.39 Body mass index [BMI] 39.0-39.9, adult; Z86.73 Personal history of transient ischemic attack (TIA), and cerebral infarction without residual deficits; Z20.822 Contact with and (suspected) exposure to COVID-19
CPT/HCPCS: 0240U; 36415; 71045; 80048; 80061; 82550; 82553; 83880; 84439; 84443; 84484; 85025; 93005; 93306; 96372; 99285; G0378; J1650

== ENCOUNTER 2022-07-04 12:39 | Emergency (ER) | payer SELFPAY ==
--- OUTSIDE RECORDS SUMMARY | 2022-07-04 12:43 | XMS REPORT | Continuity of Care Document ---
:1970 Author Organization [facility] t Address [address] [place] [address] Care Team Providers Name Role Phone PCP, PATIENT DOES NOT HAVE A Primary Care Physician Unavaila Kenn Carver Attending Clinician KENN CHAVEZ Attending Clinician Unavailable KENN CHAVEZ Admitting Clinician Unavailable Problems This patient has no known problems. Allergies, Adverse Reactions, Alerts Allergy Allergy Status Severity Reaction(s) Onset Inactive Treating Comm ents Source Name Type Date Date Clinician NO KNOWN Drug Active Univers ALLERGIE Class ity of [facility] Social History Social Habit Start Date Stop Date Quantity Comments [facility] Sm[facility] Status Start Date Stop Date Source Unknown if ever smoked [facility] Medications Ordered Filled Start Stop Current Ordering Indication Dosage Frequency Signature Comments Components Source Medication Medication Date Date Medication? Clinician (SIG) Name Name cloNIDine 2020- No .2mg 0.2 mg, Univ ers (CATAPRES) 12-30 Oral, ity of tablet 0.2 01:30: 00:25 ONCE, 1 Bipin as mg 00 :00 dose, [facility] 12/30/19 at Branch 2030, STAT amLODIPine Yes [id number] 10mg Take 1 U nivers 10 mg 3-16 tablet by ity of tablet 00:00: mouth [place] [id number] daily. [facility] Vital Signs Vital Name Observation Time Observation Value Comments Source Systolic blood 2019-12-31 01:00:00 162 mm[Hg] Univer sity of pressure [facility] Diastolic blood 2019-12-31 01:00:00 98 mm[Hg] Unive rsity [facility] Heart rate 2019-12-31 01:00:00 81 /min General acute hospital Respiratory rate 2019-12-31 01:00:00 16 /min [facility] Oxygen saturation in 2019-12-31 01:00:00 98 /min [facility] Arterial blood by [facility] Pulse oximetry Branch Body temperature 2019-12-30 23:02:00 36.78 Yessi [facility] Body weight 2019-12-30 23:02:00 117.935 kg General acute hospital Procedures Procedure Date / Time Performing Clinician Source Performed CT HEAD WO CONTRAST 2019-12-31 00:42:33 Kenn Chavez General acute hospital HEPATIC FUNCTION PANEL 2019-12-31 00:33:00 Kenn Chavez [facility] ([id number]) (ALB,T.PRO,BILI [facility] T,BU/BC,ALT,AST,ALK PHOS) BASIC METABOLIC PANEL 2019-12-31 00:33:00 Kenn Chavez [facility] (NA, K, CL, CO2, Medical [place] GLUCOSE, BUN, CREATININE, CA) CBC WITH DIFFERENTIAL 2019-12-31 00:33:00 Kenn Chavez [facility] ADC,CLC OR LCC ONLY - 2019-12-31 00:33:00 Kenn Chavez [facility] INFLUENZA A & B DIRECT Medical [place] ANTIGEN NOTICE OF PRIVACY 2019-12-30 22:51:05 Doctor Unassigned, No [facility] PRACTICES Name Medical Branch Encounters Start End Encounter Admission Attending Care Care Encounter Source Date/Time Date/Time Type Type Clinicians Facility Department ID 2019-12-30 2019-12-30 Emergency Kenn Chavez [facility] [id number] Univers 18:03:19 20:58:00 T Denise [id number] i ty [facility] [id number] [facility] [id number] [facility] 084 Branch 2019-12-30 2019-12-30 Emergency X KENN CHAVEZ [facility] ERT [id number] Univers 18:03:19 20:58:00 ity [facility] Results Test Description Test Time Test Comments Results Result Comments Source ADC,CLC OR LCC ONLY - INFLUENZA A & B DIRECT ANTIGEN 2019-12 01:04:00 Test Item Value Reference Range Interpretation Comme nts Influenza A (test code = 94826-0) Negative Negative Influenza B (test code = 73841-4) Negative Negative Lab Interpretation (test code = 59381-9) [facility] (ALB, T.PRO, BILI T, BU/BC, ALT, AST, ALK PHOS)2019-12-31 00:54:00 Test Item Value Reference Range Interpretation Comments TOTAL BILI (test code = 6577625609) 0.3 mg/dL 0.1-1.1 BILI UNCON (test code = 4897481267) 0.0 mg/dL 0.1-1.1 L BILI CONJ (test code = 9685329372) 0.0 mg/dL 0-0.3 T PROTEIN (test code = 8506996421) 7.4 g/dL 6.3-8.2 ALBUMIN (test code = 8052198457) 4.4 g/dL 3.5-5 ALK PHOS (test code = 0229581788) 137 U/L 34-122 H ALTv (test code = 1742-6) 47 U/L 5-50 AST(SGOT) (test code = 2823316512) 40 U/L 13-40 Lab Interpretation (test code = Abnormal 56125-7) [facility] (NA, K, CL, CO2, GLUCOSE, BUN, CREATININE, CA)2019-12-31 00:54:00 Test Item Value Reference Range Interpretation Comments NA (test code = 140 mmol/L 135-145 5995509599) K (test code = 3.8 mmol/L 3.5-5 0844885497) CL (test code = 100 mmol/L 98-108 9997108455) CO2 TOTAL (test code = 31 mmol/L 23-31 7061150477) AGAP (test code = 2-16 4892407219) BUN (test code = 14 mg/dL 7-23 8921261455) GLUCOSE (test code = 169 mg/dL 70-110 H 8264039861) CREATININE (test code = 0.88 mg/dL 0.6-1.25 1623162449) CALCIUM (test code = 9.5 mg/dL 8.6-10.6 1359055394) eGFR Calculation mL/min/1.73m2 (Non-) (test code = 9547686471) eGFR Calculation mL/min/1.73m2 () (test code = 3757716165) HARIKA (test code = HARIKA) Association of [...] tests). Lab Interpretation Abnormal (test code = 40488-8) [facility]/O [id number] 00:46:04No acute findings. HISTORY:Headache, acute, normal neuro exam TECHNIQUE: Noncontrast head CT was performed. COMPARISON:None. FINDINGS: The ventricles and sulci are appropriate for patient's age. There is no midline shift. The basal cisterns are preserved. No largevascular territory infarction, intracranial hemorrhage or mass effect isseen. The extracranial tissues demonstrate no acute findings. [facility] Results Inft User - 12/30/2019 7:47 PM CDTHISTORY:Headache, acute, normal neuro exam TECHNIQUE: Noncontrast head CT was performed.COMPARISON:None.FINDINGS:The ventricles and sulci are appropriate for patient's age.There is no midline shift. The basal cisterns are preserved. No largevascular territory infarction, intracranial hemorrhage or mass effect isseen.The extracranial tissues demonstrate no acute findings.IMPRESSIONNo acute findings.[facility] Center[facility] WITH [id number] 00:41:00 Test Item Value Reference Range Interpretation Comments WBC (test code = See_Comment [Automated message] 8790-2) The system [employer] generated this result transmitted ref erence range: 4.20 - 1 0.70 10*3/?L. The re ference range was not u sed to interpret this result as normal/abnor mal. RBC (test code = See_Comment [Automated message] 679-8) The system [employer] generated this result transmitted ref erence range: [...] RDW-SD (test code 43.0 fL 38.5-51.6 = 22222-1) RDW-CV (test code 12.3 % 12.1-15.4 = 788-0) PLT (test code = See_Comment [Automated message] 777-3) The system [employer] generated this result transmitted ref erence range: 150 - 32 8 10*3/?L. The re ference range was not u sed to interpret this result as normal/abnor mal. MPV (test code = 9.8 fL 9.8-13 34467-1) NRBC/100 WBC (test See_Comment [Automat ed message] code = 1845365400) The syste m which generated this result transmitted ref erence range: 0.0 - 10 .0 /100 WBCs. The refer ence range was not u sed to interpret this result as normal/abnor mal. NRBC x10^3 (test <0.01 See_Comment [Automated message] code = 0142619047) The syste m which generated this result transmitted ref erence range: 10*3/?L. The reference range was not used to interpr et this result as normal/abnormal . GRAN MAT (NEUT) % 65.7 % (test code = 770-8) IMM GRAN % (test 0.50 % code = 8951523962) LYMPH % (test code 22.3 % = 736-9) MONO % (test code 9.3 % = 5905-5) EOS % (test code = 1.6 % 713-8) BASO % (test code 0.6 % = 706-2) GRAN MAT 5.71 10*3/uL 1.99-6.95 x10^3(ANC) (test code = 1020321542) IMM GRAN x10^3 0.04 10*3/uL 0-0.06 (test code = 9448283841) LYMPH x10^3 (test 1.94 10*3/uL 1.09-3.23 code = 731-0) MONO x10^3 (test 0.81 10*3/uL 0.36-1.02 code = 742-7) EOS x10^3 (test 0.14 10*3/uL 0.06-0.53 code = 711-2) BASO x10^3 (test 0.05 10*3/uL 0.01-0.09 code = 704-7) [facility]"
[2022-07-04] MEDS ORDERED: TETRACAINE HCL 0.5% 4ML OPTH ONE (13:51)
[2022-07-04] MEDS ORDERED: FLUORESCEIN SODIUM 1 MG/WRAP ONE (13:51)
--- NOTE | 2022-07-04 14:17 | EDPHYS ---
Physician Documentation [facility] Name: Zay Werner Jr Age: 51 yrs Sex: Male : 1970 Arrival Date: 07/04/2022 Time: 12:41 Bed 10 Private MD: ED Physician Dee Dee White HPI: 07/04 14:08 This 51 yrs old Male presents to ER via Ambulatory with complaints of Eye sd2 Problem. 14:08 51-year-old male presents with chief complaint of right eye discomfort. He reports that sd2 he was barbecuing yesterday and felt something fly into his eye and it has been bothering him since then. He reports he is unsure what it was that flew into his eye or whether or not it is still present. He has had tearing and redness of the eye with photophobia. He denies any significant changes in vision. He was also noted to be significantly hypertensive upon arrival. He denies any headaches, chest pain or shortness of breath. He reports he has been off of his home blood pressure medication for at least 3 months due to not being able to afford it or having the time to see a physician. He is unsure what he was on previously for his blood pressure. He denies having any other medical problems that he has been diagnosed with or any kind of kidney problems that he has been told of.. Historical: - Allergies: 13:38 No Known Allergies; jl7 - Home Meds: 13:38 metoprolol tartrate 25 mg Oral tab [Active]; jl7 - PMHx: 13:38 Hypertension; jl7 - Immunization history:: Client reports having NOT received the Covid vaccine. - Social history:: Smoking status: Patient reports the use of cigarette tobacco products. ROS: 14:08 Constitutional: Negative for fever, chills, and weight loss. sd2 14:08 Cardiovascular: Negative for chest pain, palpitations, and edema, Respiratory: Negative for shortness of breath, cough, wheezing. MS/Extremity: Negative for injury and deformity, Skin: Negative for injury, rash, and discoloration, Neuro: Negative for headache, numbness and tingling. 14:08 Eyes: Positive for discharge, foreign body sensation, photophobia, redness, Negative for icterus, vision loss, visual disturbance. Exam: 14:08 Constitutional: This is a well developed, well nourished patient who is awake, alert, sd2 and in no acute distress. Head/Face: Normocephalic, atraumatic. Eyes: EOMI, no pain with EOM, injected conjunctiva of R eye with clear watery discharge Skin: Warm, dry with normal turgor. Normal color with no rashes, no lesions, and no evidence of cellulitis. MS/ Extremity: Pulses equal, no cyanosis. Neurovascular intact. Full, normal range of motion. Ambulatory without difficulty. Psych: Awake, alert, with orientation to person, place and time. Behavior, mood, and affect are within normal limits. Vital Signs: 13:36 BP 209 / 114; Pulse 83; Resp 15; Temp 97.3; Pulse Ox 98% ; Weight 102.06 kg; Height 5 jl7 ft. 5 in. (165.10 cm); Pain 8/10; 14:43 BP 205 / 101; Pulse 80; Resp 15; Pulse Ox 98% ; jl7 13:36 Body Mass Index 37.44 (102.06 kg, 165.10 cm) jl7 MDM: 13:52 Patient medically screened. sd2 14:08 Differential diagnosis: Corneal abrasion of Corneal ulcer of Foreign body in Acute sd2 iritis of Acute glaucoma in Ultraviolet keratitis in among others. Data reviewed: vital signs, nurses notes. Counseling: I had a detailed discussion with the patient and/or guardian regarding: the historical points, exam findings, and any diagnostic results supporting the discharge/admit diagnosis, the presence of at least one elevated blood pressure reading (>120/80) during this emergency department visit, the need for outpatient follow up, to return to the emergency department if symptoms worsen or persist or if there are any questions or concerns that arise at home. ED course: Pt's physical exam performed with tetracaine and fluorescein with Wood's lamp shows corneal abrasion at the 4 o'clock position. Treated with ophthalmic drops in ER. Pt also agreeable to restarting BP medication. Will trial on HCTZ and first dose given in ER. Pt to continue to monitor BP at home. He is otherwise asymptomatic in regards to his BP at this time and therefore, according to ACEP guidelines, no further emergent treatment of BP is indicated. Pt verbalizes understanding of discharge plan and strict return precautions at this time. . 07/04 14:04 Order name: Fluoresene Opth strip; Complete Time: 14:20 sd2 Administered Medications: 14:12 CANCELLED (Physician Discretion): cloNIDine 0.1 mg PO once sd2 14:20 Drug: Tetracaine Drops 0.5 % 1 drops {Note: administered by Dr. White.} Route: jl7 Ophthalmic; Site: right eye; 14:20 Follow up: Response: No adverse reaction jl7 14:47 Drug: Hydrochlorothiazide 25 mg Route: PO; jl7 14:47 Follow up: Response: Medication administered at discharge. jl7 14:47 Follow up: Response: Medication administered at discharge. jl7 14:47 Drug: Polysporin (bacitracin-polymyxin) Ointment 1 application Route: Ophthalmic; Site: jl7 right eye; 14:47 Follow up: Response: Medication administered at discharge. 7 Disposition Summary: 07/04/22 14:16 Discharge Ordered Location: Home sd2 Problem: new sd2 Symptoms: have improved sd2 Condition: Stable sd2 Diagnosis - Injury of conjunctiva and corneal abrasion without foreign body, right eye sd2 - Essential (primary) hypertension sd2 - Non-compliance with medication regimen sd2 Followup: sd2 - With: Private Physician - When: 2 - 3 days - Reason: Recheck today's complaints, Continuance of care, Re-evaluation by your physician Discharge Instructions: - Discharge Summary Sheet sd2 - Corneal Abrasion sd2 - Hypertension, Adult sd2 Forms: - Medication Reconciliation Form sd2 - Thank You Letter sd2 - Antibiotic Education sd2 - Prescription Opioid Use sd2 Prescriptions: - Polytrim 10,000 unit- 1 mg/mL Ophthalmic drops - instill 1 drop by OPHTHALMIC route every 4 hours for 7 days; 1 tube; Refills: sd2 0, Product Selection Permitted - Hydrochlorothiazide 25 mg Oral Tablet - take 1 tablet by ORAL route once daily .; 30 tablet; Refills: 0, Product sd2 Selection Permitted Signatures: Karan Jones RN RN jl7 Dee Dee White MD MD sd2 Corrections: (The following items were deleted from the chart) 14:12 14:04 cloNIDine 0.1 mg PO once ordered. sd2 sd2 14:13 14:08 ED course: Pt's physical exam performed with tetracaine and fluorescein with sd2 Wood's lamp shows corneal abrasion at the 4 o'clock position. Treated with ophthalmic drops in ER. Pt also agreeable to restarting BP medication. Will trial on HCTZ and first dose given in ER along with clonidine. Pt to continue to monitor BP at home. He is otherwise asymptomatic in regards to his BP at this time. . sd2
--- NOTE | 2022-07-04 14:17 | ER ---
Nurse's Notes [facility] Name: Zay Werner Jr Age: 51 yrs Sex: Male : 1970 Arrival Date: 07/04/2022 Time: 12:41 Bed 10 Private MD: Diagnosis: Injury of conjunctiva and corneal abrasion without foreign body, right eye;Essential (primary) hypertension;Non-compliance with medication regimen Presentation: 07/04 13:36 Chief complaint: Patient states: Poked right eye yesterday, feels like something is in jl7 it. Coronavirus screen: At this time, the client does not indicate any symptoms associated with coronavirus-19. Ebola Screen: No symptoms or risks identified at this time. Initial Sepsis Screen: Does the patient meet any 2 criteria? No. Patient's initial sepsis screen is negative. Does the patient have a suspected source of infection? No. Patient's initial sepsis screen is negative. Risk Assessment: Do you want to hurt yourself or someone else? Patient reports no desire to harm self or others. Onset of symptoms was July 03, 2022. 13:36 Method Of Arrival: Ambulatory [facility] 13:36 Acuity: UMBERTO 3 jl7 Triage Assessment: 13:38 General: Appears in no apparent distress. uncomfortable, Behavior is cooperative, jl7 anxious. Pain: Complains of pain in right eye Pain currently is 8 out of 10 on a pain scale. EENT: Sclera/Cornea are reddened in right eye. Historical: - Allergies: 13:38 No Known Allergies; jl7 - Home Meds: 13:38 metoprolol tartrate 25 mg Oral tab [Active]; jl7 - PMHx: 13:38 Hypertension; jl7 - Immunization history:: Client reports having NOT received the Covid vaccine. - Social history:: Smoking status: Patient reports the use of cigarette tobacco products. Screenin:45 Abuse screen: Denies threats or abuse. Denies injuries from another. Nutritional jl7 screening: No deficits noted. Tuberculosis screening: No symptoms or risk factors identified. Fall Risk None identified. Assessment: 14:45 Reassessment: Pt reports he will start taking his htn medications and followup with PCP.jl7 Vital Signs: 13:36 BP 209 / 114; Pulse 83; Resp 15; Temp 97.3; Pulse Ox 98% ; Weight 102.06 kg; Height 5 jl7 ft. 5 in. (165.10 cm); Pain 8/10; 14:43 BP 205 / 101; Pulse 80; Resp 15; Pulse Ox 98% ; jl7 13:36 Body Mass Index 37.44 (102.06 kg, 165.10 cm) jl7 ED Course: 12:41 Patient arrived in ED. rg4 13:37 Triage completed. jl7 13:38 Arm band placed on right wrist. jl7 13:51 Dee Dee White MD is Attending Physician. sd2 14:00 Patient has correct armband on for positive identification. jl7 14:43 Karan Jones RN is Primary Nurse. jl7 14:47 Assist provider with eye exam of right eye. using fluorescein stain, Performed by loren White MD Patient tolerated well. Patient did not have IV access during this emergency room visit. Administered Medications: 14:12 CANCELLED (Physician Discretion): cloNIDine 0.1 mg PO once sd2 14:20 Drug: Tetracaine Drops 0.5 % 1 drops {Note: administered by Dr. White.} Route: jl7 Ophthalmic; Site: right eye; 14:20 Follow up: Response: No adverse reaction jl7 14:47 Drug: Hydrochlorothiazide 25 mg Route: PO; jl7 14:47 Follow up: Response: Medication administered at discharge. jl7 14:47 Follow up: Response: Medication administered at discharge. jl7 14:47 Drug: Polysporin (bacitracin-polymyxin) Ointment 1 application Route: Ophthalmic; Site: [facility] right eye; 14:47 Follow up: Response: Medication administered at discharge. jl7 Medication: 14:45 VIS not applicable for this client. jl7 Outcome: 14:16 Discharge ordered by . sd2 14:47 Discharged to home ambulatory. jl7 14:47 Condition: stable 14:47 Discharge instructions given to patient, Instructed on discharge instructions, follow up and referral plans. medication usage, Demonstrated understanding of instructions, follow-up care, medications, Prescriptions given X 2. 14:48 Patient left the ED. jl7 Signatures: Janet Kirby rg4 Karan Jones RN RN Dee Dee Ho MD MD sd2 Corrections: (The following items were deleted from the chart) 13:40 13:36 Acuity: UMBERTO 4 jl7 jl7 13:40 13:36 Pulse 83bpm; Resp 15bpm; Pulse Ox 98%; Temp 97.3F; 102.06 kg; Height 5 ft. 5 in.; jl7 BMI: 37.4; Pain 8/10; jl7
[2022-07-04] MEDS ORDERED: BACITRACIN/POLYMIX OPTH OINT 3.5GM RIGHT EYE ONE (14:45)
[2022-07-04] MEDS ORDERED: hydroCHLOROthiazide 25 MG TAB PO ONE (15:00)
[2022-07-05 16:52] VITALS: TEMP 97.3; O2SAT 98
[2022-07-05 16:54] VITALS: BP 205/101
== END 2022-07-04 14:48 | disposition home or self-care (01) ==
LOC: ER 12:39
DX: S05.01XA Injury of conjunctiva and corneal abrasion without foreign body, right eye, initial encounter (principal); I10 Essential (primary) hypertension; Z91.14 Patient's other noncompliance with medication regimen; Z72.0 Tobacco use
CPT/HCPCS: 99283

== ENCOUNTER 2022-12-28 13:49 | Inpatient (IN) | payer OTHER ==
[~2022-12-28 13:49] MED LIST: ENOXAPARIN 100 MG/ML SYR SQ SCH
--- OUTSIDE RECORDS SUMMARY | 2022-12-28 14:12 | XMS REPORT | Continuity of Care Document ---
:1970 Author Organization [facility] t Address [address] [place] [address] [address] [place] [address] Care Team Providers Name Role Phone PCP, [...] Active Univers ALLERGIE Class ity of S [facility] Social History Social Habit Start Date Stop Date Quantity Comments Source [facility] Smoking Status Start Date Stop Date Source Unknown if ever smoked Universit y [facility] Medications Ordered Filled Start Stop Current Ordering Indication Dosage Frequency Signature Comments Components Source Medication Medication Date Date Medication? Clinician (SIG) Name Name cloNIDine 2020- 2020- No .2mg 0.2 mg, Univ ers (CATAPRES) 12-30 Oral, ity of tablet 0.2 01:30: 00:25 ONCE, 1 Bipin as mg 00 :00 dose, [facility] 12/30/19 at [place] 2030, STAT amLODIPine 2019-0 Yes [id number] 10mg Take 1 U nivers 10 mg 3-16 tablet by ity of tablet 00:00: mouth [place] 00 daily. [facility] Vital Signs Vital Name Observation Time Observation Value Comments Source Systolic blood 2019-12-31 01:00:00 162 mm[Hg] Univer sity of pressure [facility] Diastolic blood 2019-12-31 01:00:00 98 mm[Hg] Unive rsity of pressure [facility] Heart rate 2019-12-31 01:00:00 81 /min [facility] Respiratory rate 2019-12-31 01:00:00 16 /min [facility] Oxygen saturation in 2019-12-31 01:00:00 98 /min [facility] Arterial blood by [facility] Pulse oximetry Branch Body temperature 2019-12-30 23:02:00 36.78 Yessi [facility] Body weight 2019-12-30 23:02:00 117.935 kg [facility] Procedures Procedure Date / Time Performing Clinician Source Performed CT HEAD WO CONTRAST 2019-12-31 00:42:33 Kenn Chavez [facility] HEPATIC FUNCTION PANEL 2019-12-31 00:33:00 Kenn Chavez [facility] ([id number]) (ALB,T.PRO,BILI [facility] T,BU/BC,ALT,AST,ALK PHOS) BASIC METABOLIC PANEL 2019-12-31 00:33:00 Kenn Chavez [facility] (NA, K, CL, CO2, Medical [place] GLUCOSE, BUN, CREATININE, CA) CBC WITH DIFFERENTIAL 2019-12-31 00:33:00 Kenn Chavez [facility] ADC,CLC OR LCC ONLY - 2019-12-31 00:33:00 Kenn Chavez [facility] INFLUENZA A & B DIRECT Medical [place] ANTIGEN NOTICE OF PRIVACY 2019-12-30 22:51:05 Doctor Unassigned, No [facility] PRACTICES Name Medical [place] Encounters Start End Encounter Admission Attending Care Care Encounter Source Date/Time Date/Time Type Type Clinicians Facility Department ID 2022-12-26 2022-12-26 Outpatient [facility]NA [id number] [place]ilar[place] 16:37:11 16:37:11 0313 F Zenon 2022-09-15 2022-09-15 Outpatient [facility] [id number] Hilario 08:55:00 08:55:00 1201 F Zenon 2022-09-12 2022-09-12 Outpatient [facility]FA [id number] Hilario 15:47:48 15:47:48 1128 F Zenon 2019-12-30 2019-12-30 Emergency Kenn Chavez [facility] [id number] Univers 18:03:19 20:58:00 T [place] [id number] i ty colby Zapien [id number] [facility] [id number] [place] [id number] [place] 2019-12-30 2019-12-30 Emergency X KENN CHAVEZ [facility] ERT [id number] [facility] 18:03:19 20:58:00 ity of [facility] Results Test Description Test Time Test Comments Results Result Comments Source ADC,CLC OR LCC ONLY - INFLUENZA A & B DIRECT ANTIGEN 2019-12 01:04:00 Test Item Value Reference Range Interpretation Comme nts Influenza A (test code = 31109-9) Negative Negative Influenza B (test code = 01011-6) Negative Negative Lab Interpretation (test code = 71690-5) [facility] (ALB, T.PRO, BILI T, BU/BC, ALT, AST, ALK PHOS)2019-12-31 00:54:00 Test Item Value Reference Range Interpretation Comments TOTAL BILI (test code = 7690841094) 0.3 mg/dL 0.1-1.1 BILI UNCON (test code = 8114169013) 0.0 mg/dL 0.1-1.1 L BILI CONJ (test code = 8436627014) 0.0 mg/dL 0-0.3 T PROTEIN (test code = 9602159586) 7.4 g/dL 6.3-8.2 ALBUMIN (test code = 2202342763) 4.4 g/dL 3.5-5 ALK PHOS (test code = 8521074059) 137 U/L 34-122 H ALTv (test code = 1742-6) 47 U/L 5-50 AST(SGOT) (test code = 9748026243) 40 U/L 13-40 Lab Interpretation (test code = Abnormal 65892-0) [facility] (NA, K, CL, CO2, GLUCOSE, BUN, CREATININE, CA)2019-12-31 00:54:00 Test Item Value Reference Range Interpretation Comments NA (test code = 140 mmol/L 135-145 4563756270) K (test code = 3.8 mmol/L 3.5-5 5889169153) CL (test code = 100 mmol/L 98-108 5487261784) CO2 TOTAL (test code = 31 mmol/L 23-31 3557478394) AGAP (test code = 2-16 6382922082) BUN (test code = 14 mg/dL 7-23 1369958243) GLUCOSE (test code = 169 mg/dL 70-110 H 1991864874) CREATININE (test code = 0.88 mg/dL 0.6-1.25 2918020604) CALCIUM (test code = 9.5 mg/dL 8.6-10.6 6509633620) eGFR Calculation mL/min/1.73m2 (Non-) (test code = 4294980924) eGFR Calculation mL/min/1.73m2 () (test code = 5719411578) HARIKA (test code = HARIKA) Association of [...] tests). Lab Interpretation Abnormal (test code = 34019-6) [facility]/O [id number] 00:46:04No acute findings. HISTORY:Headache, acute, normal neuro [...] extracranial tissues demonstrate no acute findings.IMPRESSIONNo acute findings.[facility] WITH [id number] 00:41:00 Test Item Value Reference Range Interpretation Comments WBC (test code = See_Comment [Automated message] 6690-2) The system [employer] generated this result transmitted ref erence range: 4.20 - 1 0.70 10*3/?L. The re ference range was not u sed to interpret this result as normal/abnor mal. RBC (test code = See_Comment [Automated message] 789-8) The system [employer] generated this result transmitted ref erence range: [...] RDW-SD (test code 43.0 fL 38.5-51.6 = 34093-6) RDW-CV (test code 12.3 % 12.1-15.4 = 788-0) PLT (test code = See_Comment [Automated message] 777-3) The system whic h generated this result transmitted ref erence range: 150 - 32 8 10*3/?L. The re ference range was not u sed to interpret this result as normal/abnor mal. MPV (test code = 9.8 fL 9.8-13 83591-6) NRBC/100 WBC (test See_Comment [Automat ed message] code = 2166282571) The syste m which generated this result transmitted ref erence range: 0.0 - 10 .0 /100 WBCs. The refer ence range was not u sed to interpret this result as normal/abnor mal. NRBC x10^3 (test <0.01 See_Comment [Automated message] code = 4299422222) The syste m which generated this result transmitted ref erence range: 10*3/?L. The reference range was not used to interpr et this result as normal/abnormal . GRAN MAT (NEUT) % 65.7 % (test code = 770-8) IMM GRAN % (test 0.50 % code = 3077111084) LYMPH % (test code 22.3 % = 736-9) MONO % (test code 9.3 % = 5905-5) EOS % (test code = 1.6 % 713-8) BASO % (test code 0.6 % = 706-2) GRAN MAT 5.71 10*3/uL 1.99-6.95 x10^3(ANC) (test code = 3522103241) IMM GRAN x10^3 0.04 10*3/uL 0-0.06 (test code = 0362304774) LYMPH x10^3 (test 1.94 10*3/uL 1.09-3.23 code = 731-0) MONO x10^3 (test 0.81 10*3/uL 0.36-1.02 code = 742-7) EOS x10^3 (test 0.14 10*3/uL 0.06-0.53 code = 711-2) BASO x10^3 (test 0.05 10*3/uL 0.01-0.09 code = 704-7) [facility]"
[2022-12-28] MEDS ORDERED: ASPIRIN 81 MG CHEWABLE TABLET ONE (14:18)
[2022-12-28 14:35] LABS: Absolute Lymphocytes (CBC) 1.2 K/uL (0.7-4.9); Hematocrit 47.3 % (39.6-49.0); Lymphocytes % 13.2 % (15.3-44.8); MCV 92.5 fL (80-100); MPV 8.2 fL (7.6-11.3); RBC Red Blood Cell Count 5.12 M/uL (4.33-5.43)
[2022-12-28 14:36] LABS: Protime INR 1.02
[2022-12-28 14:41] LABS: Albumin 4.1 g/dL (3.4-5.0); Bilirubin Direct 0.2 mg/dL (0-0.2); Bilirubin Total 0.6 mg/dL (0.2-1.0); Magnesium 2.1 mg/dL (1.6-2.4); Potassium 3.9 mmol/L (3.5-5.1); Protein, Total 7.6 g/dL (6.4-8.2)
[2022-12-28 14:46] LABS: Troponin High Sensitivity 83.5 pg/mL (<58.9)
--- NOTE | 2022-12-28 15:00 | RAD REPORT ---
EXAM DESCRIPTION: RAD - Chest Single View - 12/28/2022 2:42 pm CLINICAL HISTORY: CHEST PAIN Chest pain. COMPARISON: Chest Single View dated 02/17/2022; Chest Single View dated 01/30/2020; CHEST SINGLE VIEW d ated 05/14/2014; CHEST PA AND LAT 2 VIEW dated 04/01/2014 FINDINGS: Portable technique limits examination quality. The lungs are grossly clear. The heart is normal in size. No displaced fractures. IMPRESSION: No acute intrathoracic process suspected.
[2022-12-28] MEDS ORDERED: ENOXAPARIN 100 MG/ML SYR SQ ONE (15:16)
[2022-12-28] MEDS ORDERED: MORPHINE 4 MG/ML SYR ONE (15:27)
[2022-12-28] MEDS ORDERED: ONDANSETRON 4 MG/2 ML VIAL ONE (15:27)
--- NOTE | 2022-12-28 15:35 | EDPHYS ---
Physician Documentation [facility] Name: Zay Werner Jr Age: 52 yrs Sex: Male : 1970 Arrival Date: 12/28/2022 Time: 13:54 Bed 19 Private MD: ED Physician Wellington Yuen HPI: 12/28 15:22 This 52 yrs old Male presents to ER via Ambulatory with complaints of Chest sb4 Pain, Back Pain. 15:23 Onset: The symptoms/episode began/occurred 3 month(s) ago. Associated signs and sb4 symptoms: The patient has no apparent associated signs or symptoms. Modifying factors: The patient symptoms are alleviated by nothing, the patient symptoms are aggravated by nothing. The patient has experienced a previous episode. The patient has not recently seen a physician. 52 year old male with hypertension who presents with 3 months of chest pain/heartburn and 1 week of back pain. He was admitted for chest pain/elevated trop in february 2022 which cardiology stated the elevated troponin was secondary to demand ischemia. He has not followed up since. States the chest pain is severe and radiates to his back. . Historical: - Allergies: 13:59 No Known Allergies; mb9 - Home Meds: 13:59 Prednisone Oral [Active]; metoprolol tartrate 25 mg Oral tab [Active]; mb9 - PMHx: 13:59 Hypertension; mb9 - PSHx: 13:59 None; mb9 - Immunization history:: Adult Immunizations up to date. - Social history:: Smoking status: Patient reports the use of cigarette tobacco products, denies chronic smoking, but will smoke occasionally. ROS: 15:23 Constitutional: Negative for fever, chills, and weight loss, Eyes: Negative for injury, sb4 pain, redness, and discharge, ENT: Negative for injury, pain, and discharge, Respiratory: Negative for shortness of breath, cough, wheezing, and pleuritic chest pain, Abdomen/GI: Negative for abdominal pain, nausea, vomiting, diarrhea, and constipation, Back: Negative for injury and pain, MS/Extremity: Negative for injury and deformity, Skin: Negative for injury, rash, and discoloration, Neuro: Negative for headache, weakness, numbness, tingling, and seizure. 15:23 Cardiovascular: Positive for chest pain. sb4 15:23 Back: Positive for pain at rest. Exam: 15:23 Constitutional: This is a well developed, well nourished patient who is awake, alert, sb4 and in no acute distress. Head/Face: Normocephalic, atraumatic. Eyes: Extra-ocular motions intact. Periorbital areas with no swelling, redness, or edema. Cardiovascular: Regular rate and rhythm with a normal S1 and S2. Respiratory: Lungs have equal breath sounds bilaterally, clear to auscultation and percussion. No rales, rhonchi or wheezes noted. No increased work of breathing, no retractions or nasal flaring. Abdomen/GI: Soft, non-tender, no distension. Back: No spinal tenderness. No costovertebral tenderness. Full range of motion. Skin: Warm, dry with normal turgor. Normal color with no rashes, no lesions, and no evidence of cellulitis. MS/ Extremity: Pulses equal, no cyanosis. Neurovascular intact. Full, normal range of motion. 15:23 ECG was reviewed by the Attending Physician. sb4 Vital Signs: 13:56 BP 196 / 110; Pulse 91; Resp 20; Temp 97.9; Pulse Ox 96% on R/A; Weight 112.94 kg; mb9 Height 5 ft. 5 in. ; Pain 8/10; 15:20 BP 203 / 104; Pulse 81; Resp 17 S; Pulse Ox 97% on R/A; Pain 8/10; kc6 13:56 Body Mass Index 41.44 (112.94 kg, 165.1 cm) mb9 13:56 Pain Scale: Adult mb9 15:20 Pain Scale: Adult kc6 MDM: 14:31 Patient medically screened. sb4 15:33 Differential diagnosis: ACS, aortic dissection, GERD. Data reviewed: vital signs, sb4 nurses notes, old medical records, previous hospital stay notes in [facility] lab test result(s), EKG, radiologic studies, plain films, I have discussed the patient's presentation/case with the attending Emergency Department Physician; and as a result, I will admit patient. Consideration of Admission/Observation Patient was admitted/placed on observation. Management of patient was discussed with the following: Hospitalist: Lilia. Care significantly affected by the following chronic conditions: Hypertension, Obesity. Admission orders: after a detailed discussion of the patient's condition and case, the admit orders are written by me. Special discussion:. 12/28 14:04 Order name: EKG - Nurse/Tech; Complete Time: 14:04 mb9 12/28 14:06 Order name: Basic Metabolic Panel 12/28 14:06 Order name: CBC with Diff 12/28 14:06 Order name: Troponin HS 12/28 14:06 Order name: XRAY Chest (1 view); Complete Time: 15:01 12/28 14:06 Order name: EKG; Complete Time: 14:06 12/28 14:07 Order name: Basic Metabolic Panel; Complete Time: 15:00 sb4 12/28 14:07 Order name: CBC with Diff; Complete Time: 15:00 sb4 12/28 14:07 Order name: LFT's; Complete Time: 15:00 sb4 12/28 14:07 Order name: Magnesium; Complete Time: 15:00 sb4 12/28 14:07 Order name: NT PRO-BNP; Complete Time: 15:00 sb4 12/28 14:07 Order name: PT-INR; Complete Time: 15:00 sb4 12/28 14:07 Order name: Troponin HS; Complete Time: 15:00 sb4 12/28 14:07 Order name: EKG - Nurse/Tech; Complete Time: 14:12 sb12/28 14:46 Order name: SARS RAPID sb4 EC:23 Rate is 81 beats/min. Rhythm is regular, Normal Sinus Rhythm with Right bundle branch sb4 block. Left axis deviation noted. QRS is positive in lead I and negative in lead aVF. CO interval is normal at 160 msec. QRS interval is normal at 136 msec. QT interval is normal at 394 msec. Q waves are Present. T waves are Inverted in leads V1, V2, V3, V4, V5, V6. Clinical impression: NSR w/ Non-specific ST/T Changes. Administered Medications: 14:15 Drug: Aspirin PO Chewable Tablet 324 mg Route: PO; mb9 15:08 Follow up: Response: No adverse reaction kc6 15:17 Drug: Enoxaparin Sub-Q 1 mg/kg Route: Sub-Q; Site: abdomen; kc6 15:28 Drug: morphine IVP or IV 4 mg Route: IVP; Infused Over: 4 mins; Site: left antecubital; kc6 15:28 Drug: Ondansetron IVP 4 mg Route: IVP; Site: left antecubital; kc6 Disposition Summary: 12/28/22 15:35 Hospitalization Ordered Hospitalization Status: Inpatient Admission sb4 Provider: Pavel Price Location: Telemetry/MedSurg (Inpatient) sb4 Condition: Fair sb4 Problem: new sb4 Symptoms: are unchanged sb4 Bed/Room Type: Standard sb4 Room Assignment: sb4 Diagnosis - Subsequent non-ST elevation (NSTEMI) myocardial infarction sb4 - Essential (primary) hypertension sb4 Forms: - Medication Reconciliation Form sb4 - SBAR form sb4 Signatures: Dispatcher [employer] EDKeyona Mckenzie RN RN major5 Oksana Ivan RN RN kc6 Breann Carrera PAAllyC PAAllyC sb4 Celine Tobin RN RN mb9 Corrections: (The following items were deleted from the chart) 14:07 14:06 IV Saline Lock ordered. aa5 sb4 14:07 14:06 Labs collected and sent ordered. aa5 sb4 14:07 14:06 Oxygen Per Protocol ordered. aa5 sb4 14:07 14:06 O2 Sat Monitoring ordered. aa5 sb4 14: 14:06 Cardiac monitoring ordered. aa5 sb4 14:09 14:07 Chest Single View+RAD.RAD.BRZ ordered. EDMS EDMS
--- NOTE | 2022-12-28 15:35 | ER ---
Nurse's Notes [facility] Name: Zay Werner Jr Age: 52 yrs Sex: Male : 1970 Arrival Date: 12/28/2022 Time: 13:54 Bed 19 Private MD: Diagnosis: Subsequent non-ST elevation (NSTEMI) myocardial infarction;Essential (primary) hypertension Presentation: 12/28 13:56 Chief complaint: Patient states: "it started with my back pain 1 week ago. Then my mb9 chest pain/heartburn started 3 months. Sometimes my right leg hurts but not right. I feel nauseous and have a headache that comes and goes". Coronavirus screen: At this time, the client does not indicate any symptoms associated with coronavirus-19. Ebola Screen: No symptoms or risks identified at this time. Initial Sepsis Screen: Does the patient meet any 2 criteria? No. Patient's initial sepsis screen is negative. Does the patient have a suspected source of infection? No. Patient's initial sepsis screen is negative. Risk Assessment: Do you want to hurt yourself or someone else? Patient reports no desire to harm self or others. Onset of symptoms was December 28, 2022. 13:56 Method Of Arrival: Ambulatory mb9 13:56 Acuity: UMBERTO 3 mb9 Historical: - Allergies: 13:59 No Known Allergies; mb9 - Home Meds: 13:59 Prednisone Oral [Active]; metoprolol tartrate 25 mg Oral tab [Active]; mb9 - PMHx: 13:59 Hypertension; mb9 - PSHx: 13:59 None; mb9 - Immunization history:: Adult Immunizations up to date. - Social history:: Smoking status: Patient reports the use of cigarette tobacco products, denies chronic smoking, but will smoke occasionally. Screenin:18 [facility] ED Fall Risk Assessment (Adult) History of falling in the last 3 months, kc6 including since admission No falls in past 3 months (0 pts) Confusion or Disorientation No (0 pts) Intoxicated or Sedated No (0 pts) Impaired Gait No (0 pts) Mobility Assist Device Used No (0 pt) Altered Elimination No (0 pt) Score/Fall Risk Level 0 - 2 = Low Risk Oriented to surroundings, Maintained a safe environment, Educated pt \\T\\ family on fall prevention, incl call for assistance when getting out of bed, Assessed \\T\\ reinforced patient's understanding of fall precautions, Hourly rounding (assess needs \\T\\ fall precautionary measures) done. Abuse screen: Denies threats or abuse. Denies injuries from another. Nutritional screening: No deficits noted. Tuberculosis screening: No symptoms or risk factors identified. Assessment: 15:18 General: Appears in no apparent distress. uncomfortable, Behavior is calm, cooperative, kc6 appropriate for age. Pain: Complains of pain in back and chest Pain does not radiate. Pain currently is 8 out of 10 on a pain scale. Quality of pain is described as burning, sharp, shooting, Pain began a week ago Is continuous, Alleviated by nothing. Aggravated by increased activity, Also complains of no other associated symptoms. Neuro: Ta Agitation-Sedation Scale (RASS): 0 - Alert and Calm Level of Consciousness is awake, alert, obeys commands, Oriented to person, place, time, situation, Appropriate for age. Cardiovascular: Capillary refill < 3 seconds Rhythm is sinus rhythm. Respiratory: Airway is patent Trachea midline Respiratory effort is even, unlabored, Respiratory pattern is regular, symmetrical. GI: No signs and/or symptoms were reported involving the gastrointestinal system. : No signs and/or symptoms were reported regarding the genitourinary system. EENT: No signs and/or symptoms were reported regarding the EENT system. Derm: No signs and/or symptoms reported regarding the dermatologic system. Skin is intact, Skin is pink, warm \\T\\ dry. Musculoskeletal: No signs and/or symptoms reported regarding the musculoskeletal system. Circulation, motion, and sensation intact. Capillary refill < 3 seconds, Range of motion: intact in all extremities. Vital Signs: 13:56 BP 196 / 110; Pulse 91; Resp 20; Temp 97.9; Pulse Ox 96% on R/A; Weight 112.94 kg; mb9 Height 5 ft. 5 in. ; Pain 8/10; 15:20 BP 203 / 104; Pulse 81; Resp 17 S; Pulse Ox 97% on R/A; Pain 8/10; kc6 13:56 Body Mass Index 41.44 (112.94 kg, 165.1 cm) mb9 13:56 Pain Scale: Adult mb9 15:20 Pain Scale: Adult kc6 ED Course: 13:54 Patient arrived in ED. rg4 13:59 Triage completed. mb9 14:00 Arm band placed on. mb9 14:06 [facility]. sb4 14:06 Wellington Yuen MD is Attending Physician. sb4 14:15 Basic Metabolic Panel Sent. mb9 14:15 CBC with Diff Sent. mb9 14:15 LFT's Sent. mb9 14:15 Magnesium Sent. mb9 14:15 NT PRO-BNP Sent. mb9 14:15 PT-INR Sent. mb9 14:15 Troponin HS Sent. mb9 14:15 Basic Metabolic Panel Sent. mb9 14:15 CBC with Diff Sent. mb9 14:15 Troponin HS Sent. mb9 14:15 EKG done, by ED staff, reviewed by Breann Carrera PA-C. Inserted saline lock: 18 gauge in mb9 left antecubital area, using aseptic technique. 14:44 XRAY Chest (1 view) In Process Unspecified. EDMS 15:08 Oksana Ivan RN is Primary Nurse. kc6 15:19 Patient has correct armband on for positive identification. Placed in gown. Bed in low kc6 position. Call light in reach. Side rails up X2. Client placed on continuous cardiac and pulse oximetry monitoring. NIBP monitoring applied. quality assurance monitor final on. 15:19 Patient maintains SpO2 saturation greater than 95% on room air. kc6 15:34 Pavel Price MD is Hospitalizing Provider. sb4 Administered Medications: 14:15 Drug: Aspirin PO Chewable Tablet 324 mg Route: PO; mb9 15:08 Follow up: Response: No adverse reaction kc6 15:17 Drug: Enoxaparin Sub-Q 1 mg/kg Route: Sub-Q; Site: abdomen; kc6 15:28 Drug: morphine IVP or IV 4 mg Route: IVP; Infused Over: 4 mins; Site: left antecubital; kc6 15:28 Drug: Ondansetron IVP 4 mg Route: IVP; Site: left antecubital; kc6 Outcome: 15:35 Decision to Hospitalize by Provider. sb4 Signatures: Dispatcher [employer] EDMS Janet Kirby rg4 Oksana Ivan RN RN kc6 Brown, Sophia, PA-C PA-C sb4 Breneman, Alexandra, RN RN mb9
[2022-12-28 16:24] LABS: SARS-CoV-2 Antigen Rapid Res Negative (Negative)
[2022-12-28] MEDS ORDERED: ACETAMINOPHEN 325 MG TABLET PO PRN (16:26)
[2022-12-28] MEDS ORDERED: ONDANSETRON 4 MG/2 ML VIAL IV PRN (16:35)
--- NOTE | 2022-12-28 16:41 | P.HP ---
Certification for Inpatient Patient admitted to: Inpatient With expected LOS: >2 Midnights Patient will require the following post-hospital care: None Practitioner: I am a practitioner with admitting privileges, knowledge of patient current condition, hospital course, and medical plan of care. Services: Services provided to patient in accordance with Admission requirements found in Title 42 Section 412.3 of the Code of Federal Regulations Patient History Date of Service: 12/28/22 Reason for admission: NSTEMI History of Present Illness: Patient is a 52-year-old male with a past medical history significant for hypertension who presents with complaint of substernal chest pain that has been ongoing intermittently for the past 3 months. Patient rated pain as 6/10 in severity and described pain as burning in quality. 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 He indicated that has been having low back pain as well as neck pain for the past 8 days ago and sometimes experiences shooting pain down his right lower extremity. Patient rated pain as 10/10 in severity and described pain as sharp in quality. Patient reported associated signs and symptoms of diaphoresis, nausea, headache, shortness of breath and occasional loss of appetite. Patient denies any other signs and symptoms. Symptoms are aggravated or relieved by nothing. Patient decided to present to the hospital due to worsening symptoms. Allergies No Known Allergies Allergy (Verified 05/14/14 22:24) Home Medications: Lisinopril/Hydrochlorothiazide [Lisinopril-Hctz 10-12.5 mg Tab] 1 each PO DAILY 12/28/22 - Past Medical/Surgical History Diabetic: No -: Hypertension Past Surgical History: Reviewed- Non-Contributory Psychosocial/ Personal History: Patient lives at home with his parents. - Family History Family History: Reviewed- Non-Contributory - Social History Smoking Status: Light Tobacco smoker (1-9 cigarettes/day) Counseled patient to stop smoking for: less than 10 minutes Smoking therapy provided: Yes Patient receptive to therapy: Yes Alcohol use: Yes CD- Drugs: No Caffeine use: Yes Place of Residence: Home Review of Systems General: Sweats, Other (Occasional loss of appetite.) Eyes: Unremarkable ENT: Unremarkable Respiratory: Shortness of Breath Cardiovascular: Chest Pain Gastrointestinal: Nausea Genitourinary: Unremarkable Musculoskeletal: Neck Pain, Back Pain Integumentary: Unremarkable Neurological: Other (Headache ) Physical Examination - Physical Exam General: Alert, In no apparent distress, Oriented x3, Cooperative HEENT: Atraumatic, PERRLA, Mucous membr. moist/pink, EOMI, Sclerae nonicteric Neck: Supple, 2+ carotid pulse no bruit, No LAD, Without JVD or thyroid abnormality Respiratory: Clear to auscultation bilaterally, Normal air movement Cardiovascular: No edema, Regular rate/rhythm, Normal S1 S2 Capillary refill: <2 Seconds Gastrointestinal: Normal bowel sounds, Soft and benign, No tenderness Musculoskeletal: No clubbing, No swelling, No tenderness Integumentary: No rashes Neurological: Normal speech, Normal tone, Normal affect Lymphatics: No axilla or inguinal lymphadenopathy - Studies Laboratory Data (last 24 hrs) 12/28/22 14:14: PT 11.2, INR 1.02 12/28/22 14:14: WBC 9.10, Hgb 16.5, Hct 47.3, Plt Count 180 12/28/22 14:14: Sodium 137, Potassium 3.9, BUN 9, Creatinine 0.90, Glucose 204 H, Magnesium 2.1, Total Bilirubin 0.6, AST 27, ALT 53, Alkaline Phosphatase 119 H Assessment and Plan - Plan --NSTEMI. We will continue to trend troponin levels. Patient given weight- based Lovenox in the ER. Echocardiogram pending to assess cardiac structures and functions. Telemetry to monitor for any significant arrhythmia. Continue Lovenox subQ. Cardiology consulted. Will await further recommendation from industrial engineering analyst. -- Low back pain\cervicalgia. Patient reports radicular pain down his right leg. CT cervical spine and CT lumbar pending for further assessment. We will manage pain with current pain medication regimen. --Hypertension. Poorly controlled. Continue home medications and labetalol as needed. --Sigmoid colon mass. Noted on CT imaging. Patient to follow-up with an outpatient docketing specialist for further work-up. -- Hypophosphatemia. Replete as needed. --Nausea. Antiemetics on board. --Headache. Tylenol as needed. --Nicotine dependence. Patient counseled on tobacco cessation. Refuses nicotine patch. --DVT prophylaxis with Lovenox subQ. Discharge Plan: Home Plan to discharge in: Greater than 2 days - Advance Directives Does patient have a Living Will: No Does patient have a Durable POA for Healthcare: No - Code Status/Comfort Care Code Status Assessed: Yes Physician Review: Patient Assessed, Agree with Above Assessment and Plan Critical Care: No
[2022-12-28 16:59] VITALS: BMI 40.9
--- NOTE | 2022-12-28 16:59 | RAD REPORT ---
EXAM DESCRIPTION: CT - Angio Aorta For Dissection - 12/28/2022 4:45 pm CLINICAL HISTORY: Chest pain radiating to the back. chest pain, back pain COMPARISON: No comparisons TECHNIQUE: CT angiography of the aorta was performed with MIPs. All CT scans are performed using dose optimization technique as appropriate and may include automated exposure control or mA/KV adjustment according to patient size. FINDINGS: A left aortic arch is present with normal branching pattern of the great vessels.No acute aortic finding is seen such as aneurysm, penetrating ulcer or dissection. The celiac axis, SMA, ROSALBA and renal arteries are patent. No evidence of pulmonary embolism. The lungs are clear. Mild fatty liver.The spleen, pancreas, right adrenal gland and kidneys are within normal limits for a rterial phase imaging.24 mm left adrenal mass. No bowel obstruction, free fluid or abscess.There is seen masslike lesion seen in the sigmoid colon. There are several diverticula in this region as well. Findings are quite worrisome neoplastic lesion. No pathologic enlarged lymphadenopathy identified. No fracture or worrisome bone lesion seen. Small fat containing left inguinal hernia. IMPRESSION: Masslike seen in the sigmoid colon, neoplasia is diagnosis of concern.Followup colonosco py recommended. 24 mm left adrenal mass, nonspecific. MRI adrenal protocol would be helpful for further characterizat ion. No acute vascular findings.
[2022-12-28 17:59] LABS: Magnesium 2.2 mg/dL (1.6-2.4); Phosphorus 1.9 mg/dL (2.5-4.9)
[2022-12-28] MEDS ORDERED: HEPARIN/D5W 25,000 UNIT/500 ML BAG IV PRN (18:00)
[2022-12-28 18:26] LABS: Thyroid Stimulating Hormone 4.83 uIU/mL (0.358-3.740)
[2022-12-28] MEDS ORDERED: POTASSIUM PHOS 10 MM in NA CHLORIDE 0.9% 250 ML IV ONE (19:02)
[2022-12-28] MEDS ORDERED: LORazepam 2 MG/ML VIAL IV ONE (19:33)
[2022-12-28] MEDS: HYDROCODONE/APAP 10/325 TAB PO PRN (19:39)
[2022-12-28 20:00] LABS: Absolute Lymphocytes (CBC) 1.1 K/uL (0.7-4.9); Hematocrit 44.1 % (39.6-49.0); Lymphocytes % 10.8 % (15.3-44.8); MCV 92.3 fL (80-100); MPV 8.2 fL (7.6-11.3); RBC Red Blood Cell Count 4.78 M/uL (4.33-5.43)
[2022-12-28] MEDS: POTASS/SODIUM PHOSPHATE 1 PKT POWD.PACK PO SCH ×3 (20:36→22:31)
[2022-12-28] MEDS: Enoxaparin 120 MG/0.8 ML SYR SQ SCH (20:36)
[2022-12-28 22:16] LABS: Potassium 3.9 mmol/L (3.5-5.1); Troponin High Sensitivity 71.6 pg/mL (<58.9)
[2022-12-29] MEDS: LABETALOL 20 MG/4ML SYRINGE IV PRN ×3 (00:28→22:55)
[2022-12-29] MEDS: HYDROCODONE/APAP 10/325 TAB PO PRN ×3 (01:25→19:19)
[2022-12-29 02:44] LABS: Absolute Lymphocytes (CBC) 1.5 K/uL (0.7-4.9); Hematocrit 41.7 % (39.6-49.0); MCV 92.7 fL (80-100); MPV 8.4 fL (7.6-11.3); RBC Red Blood Cell Count 4.49 M/uL (4.33-5.43)
[2022-12-29 03:11] LABS: Potassium 3.8 mmol/L (3.5-5.1)
[2022-12-29] MEDS ORDERED: POTASSIUM CL SA 10 MEQ TAB PO ONE (09:00)
[2022-12-29] MEDS: Enoxaparin 120 MG/0.8 ML SYR SQ SCH ×2 (09:00→20:56)
[2022-12-29] MEDS ORDERED: ENOXAPARIN 40 MG/0.4 ML SQ SCH (09:00)
--- NOTE | 2022-12-29 09:57 | RAD REPORT ---
EXAM DESCRIPTION: MRI - Lumbar Spine Wo Con - 12/29/2022 9:30 am CLINICAL HISTORY: Low back pain with radiculopathy COMPARISON: None TECHNIQUE: Sagittal T1, T2 and STIR weighted sequences were obtained. Axial T1 and T2 sequences were obtained through the lumbar disc levels. FINDINGS: L1-2, L2-3, L3-4 and L4-5 are unremarkable Mild disc desiccation L5-S1 with small disc bulge and annular fissure. Mild epidural lipomatosis exte nds into the sacral spinal canal. Thecal sac 7 millimeters. Neural foramina are patent No significant abnormal signal within the bones. IMPRESSION: Mild spondylosis and epidural lipomatosis L5-S1 resulting in mild to moderate central sp inal stenosis
--- NOTE | 2022-12-29 10:01 | RAD REPORT ---
EXAM DESCRIPTION: MRI - C Spine Wo Cont - 12/29/2022 9:29 am CLINICAL HISTORY: Neck pain with radiculopathy COMPARISON: None TECHNIQUE: Magnetic resonance imaging of the cervical spine was obtained. Sagittal and axial images completed. FINDINGS: Images are degraded by patient motion artifact No significant abnormality craniocervical junction C2-3, C3-4, C4-5, C5-6, C6-7 and C7-T1 appear unremarkable. The spinal cord is normal caliber. Evaluation for abnormal signal limited secondary to the patient mo tion artifact No significant abnormal signal within the bones is noted. IMPRESSION: Grossly normal MRI cervical spine
[2022-12-29] MEDS ORDERED: LIDOCAINE 1% 20 ML MDV ONE (12:24)
[2022-12-29] MEDS ORDERED: HEPA 1000U/500MLS 2,000 UNIT/1,000 ML BAG IV ONE (12:24)
--- NOTE | 2022-12-29 12:36 | EKG ---
Test Date: 2022-12-28 Test Time: 14:02:59 Circuit Manager: MB MEASUREMENT RESULTS: Intervals: Rate: 81 ND: 160 QRSD: 136 QT: 394 QTc: 457 Spring: P: 57 ND: 160 QRS: -42 T: 13 INTERPRETIVE STATEMENTS: Normal sinus rhythm Left axis deviation Right bundle branch block Septal infarct, age undetermined T wave abnormality, consider lateral ischemia Abnormal ECG Compared to ECG 02/17/2022 21:56:10 Left-axis deviation now present Myocardial infarct finding still present T-wave abnormality still present Possible ischemia still present Electronically Signed On 12-29-22 12:35:05 CDT by Geraldo Felton
[2022-12-29] MEDS ORDERED: MIDAZOLAM HCL 2 MG/2 ML INJ ONE (12:40)
[2022-12-29] MEDS ORDERED: FENTANYL CITR 100 MCG/2 ML ONE (12:40)
[2022-12-29] MEDS ORDERED: VERAPAMIL HCL 10 MG/4 ML VIAL IV ONE (12:41)
[2022-12-29] MEDS ORDERED: ATROPINE SULF 1 MG/10 ML SYR IV ONE (12:41)
[2022-12-29] MEDS ORDERED: NA CHLORIDE 0.9% 500 ML ONE (12:41)
[2022-12-29] MEDS ORDERED: HEPARIN 10,000 UNIT/10 ML VIAL IV ONE (12:41)
[2022-12-29] MEDS ORDERED: HEPARIN 5000 UNIT/ML 1 ML VIAL ONE (12:41)
[2022-12-29] MEDS ORDERED: FUROSEMIDE 20 MG/ 2ML VIAL ONE (12:53)
[2022-12-29] MEDS ORDERED: HYDRALAZINE HCL 20 MG/ML VIAL ONE (12:59)
--- NOTE | 2022-12-29 13:46 | CON ---
Date of Consultation: 12/29/2022 Reason For Consultation: Chest pain, limited troponin. History Of Present Illness: This is a 52-year-old male with a past medical history of obesity, hyper tension, presented with substernal chest pain that radiates to the neck and shoulder and to the back. Severity is 6/10 and pain has been coming and going since yesterday, sharp in nature, along with so me shortness of breath. No diaphoresis or nausea or vomiting. Past Medical History: Hypertension and obesity. Medications: Refer to reconciliation sheet for detailed list. Allergies: NO KNOWN DRUG ALLERGIES. Family History: No premature coronary artery disease or cancer. Social History: He smokes about less than 10 cigarettes a day and does not drink. Does not use drug s. Review of Systems: All systems reviewed and they were negative except what mentioned in HPI. Physical Examination: Vital Signs: Reviewed. Head and Neck: Pupils are equal, reactive to light. Intact eye movements. No JVD. No cervical lym phadenopathy. Neck is supple. Thyroid is not enlarged. Lungs: Clear to auscultation bilaterally. No rhonchi, wheezing, or crackles. No accessory muscle u se. Heart: Regular rate and rhythm. No extra sounds. Abdomen: Soft, nontender. Bowel sounds positive. No organomegaly. No masses or hernia. No rigidi ty or rebound. Extremities: No clubbing or cyanosis. Intact pulses. Skin: No rash. Neurologic: Alert, awake, oriented x3. No acute focal deficits appreciated. Investigations: Troponins 483 and then down 74. BUN 12, creatinine 0.97. Hemoglobin is 14.8. Assessment And Recommendations: 1.Chest pain with elevated troponin, possible non-ST elevation myocardial infarction. He has enough risk factors for coronary artery disease. Keep him n.p.o. and plan for coronary angiogram today and treat accordingly. Meanwhile, continue baby aspirin. He was on Lovenox that was held for a coronar y angiogram today. 2.Hypertension. Blood pressure is controlled. Continue current management. 3.Positive troponin, likely due to non-ST elevation myocardial infarction. Coronary angiogram today as above. SR/MODL Voice ID: [id number] Report ID: [id number]
--- NOTE | 2022-12-29 13:47 | ECHO ---
HEIGHT: 5 ft 5 in WEIGHT: 246 lb 0 oz DATE OF STUDY: 12/29/[address]: Jose Allen 2-DIMENSIONAL: YES M.MODE: YES DOPPLER: YES COLOR FLOW: YES TDS: PORTABLE: YES DEFINITY: BUBBLE STUDY: DIAGNOSIS: CHEST PAIN CARDIAC HISTORY: CATHERIZATION: NO SURGERY: NO PROSTHETIC VALVE: NO PACEMAKER: NO MEASUREMENTS (cm) DIASTOLIC (NORMALS) SYSTOLIC (NORMALS) IVSd 1.3 (0.6-1.2) LA Diam 3.3 (1.9-4.0) LVEF 54% LVIDd 4.8 (3.5-5.7) LVIDs 3.5 (2.0-3.5) %FS 28% LVPWd 1.4 (0.6-1.2) Ao Diam 3.4 (2.0-3.7) 2 DIMENSIONAL ASSESSMENT: RIGHT ATRIUM: NORMAL LEFT ATRIUM: NORMAL RIGHT VENTRICLE: NORMAL LEFT VENTRICLE: LEFT VENTRICULAR HYPERTROPHY TRICUSPID VALVE: NORMAL MITRAL VALVE: MILD MITRAL REGURGITATION PULMONIC VALVE: NORMAL AORTIC VALVE: MILD AORTIC INSUFFICIENCY PERICARDIAL EFFUSION: NONE AORTIC ROOT: NORMAL LEFT VENTRICULAR WALL MOTION: NORMAL DOPPLER/COLOR FLOW: SEE BELOW COMMENTS: 1. NORMAL LEFT VENTRICULAR EJECTION FRACTION 55-60% 2. MODERATE CONCENTRIC LEFT VENTRICULAR HYPERTROPHY 3. MILD MITRAL REGURGITATION 4. GRADE I DIASTOLIC DYSFUNCTION TECHNOLOGIST: SARA MALCOLM
--- NOTE | 2022-12-29 17:29 | P.PN ---
Subjective Date of Service: 12/29/22 Chief Complaint: NSTEMI No acute events overnight. His chest pain has subsided. He has been NPO past midnight in anticipation for a possible LHC today. He denies any shortness of breath or palpitations. Review of Systems 10-point ROS is otherwise unremarkable Cardiovascular: Chest Pain (improved) Physical Examination - Vital Signs Temperature: 97.9 F Blood Pressure: 172/97 Pulse: 70 Respirations: 14 Pulse Ox (%): 95 - Physical Exam General: Alert, In no apparent distress, Oriented x3 HEENT: Atraumatic, Sclerae nonicteric Neck: JVD not distended Respiratory: Clear to auscultation bilaterally, Normal air movement Cardiovascular: No edema, Regular rate/rhythm, No murmurs Gastrointestinal: Normal bowel sounds, Non-distended, No tenderness Musculoskeletal: No clubbing Integumentary: No rashes Neurological: Normal speech, Normal strength at 5/5 x4 extr, Normal tone, Sensation intact, Cranial nerves 3-12 intact, Normal affect - Studies Laboratory Data (last 24 hrs) 12/28/22 14:14: Phosphorus 1.9 L, Magnesium 2.2 Assessment And Plan - Plan # Non-ST Segment Elevation Myocardial Infarction # Hypertension - Evaluation thus far: - EKG: without STEMI criteria, trend - Serial troponin: 83.5 -> 71.6 -> 74.4 - Transthoracic echocardiogram = "1. normal left ventricular ejection fraction 55-60% 2. moderate concentric left ventricular hypertrophy 3. mild mitral regurgitation 4. grade I diastolic dysfunction" - Chest x-ray = "no acute intrathoracic process suspected." - CT dissection protocol = "masslike seen in the sigmoid colon, neoplasia is diagnosis of concern. Followup colonoscopy recommended. 24 mm left adrenal mass, nonspecific. MRI adrenal protocol would be helpful for further characterization. No acute vascular findings." - Management plan: - Consulted Cardiology and spoke with Dr. 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 MRIs ordered to exclude metastatic lesions in the setting of a sigmoid colon mass. - MRI cervical spine = "grossly normal MRI cervical spine." - MRI lumbar spine = "mild spondylosis and epidural lipomatosis L5-S1 resulting in mild to moderate central spinal stenosis" - He had no unilateral weakness, saddle anesthesia, urinary/bowel incontinence to suggest cord compression - Advised to schedule a follow-up appointment with Neurology post-discharge # Sigmoid Colon Mass Lesion Noted on his CT abdomen/pelvis. He and his were counseled extensively on this finding. They were provided a copy of the CT report. It was explained to him the high concern for a colon malignancy and emphasis on the need for a colonoscopy was expressed. We currently do not have a Child Protective Services Social Worker solution manager, but I highly advised that he follow-up with Gastroenterology for an expedited colonoscopy as soon as he is discharged from the hospital. He and his verbalized understanding and agreed to make this appointment. 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 His laboratory studies do not support a diagnosis of a functioning adrenal tumor (i.e. sodium, potassium, bicarbonate are within normal limits). # Tobacco Use Disorder - Nicotine patch offered, he declined Pavel Price M.D.
[2022-12-29] MEDS ORDERED: METOPROLOL TAR 25 MG TAB PO SCH (18:00)
[2022-12-29] MEDS ORDERED: MORPHINE 4 MG/ML SYR IV ONE (20:26)
[2022-12-29] MEDS: HYDRALAZINE HCL 20 MG/ML VIAL IV PRN (20:52)
[2022-12-29] MEDS ORDERED: ATORVASTATIN 40 MG TAB PO SCH (21:00)
[2022-12-29] MEDS ORDERED: ASPIRIN 81 MG CHEWABLE TABLET PO SCH (21:00)
--- NOTE | 2022-12-29 21:47 | P.DS ---
Admission Date: 12/28/22 Discharge Date: 12/30/22 Disposition: TRANSFER TO [facility] Comment: Transfer to [facility] Discharge Condition: FAIR Reason for Admission: NSTEMI Consultations: Cardiology Dr. Felton Procedures: 12/28/22 CXR FINDINGS: Portable technique limits examination quality. The lungs are grossly clear. The heart is normal in size. No displaced fractures. IMPRESSION: No acute intrathoracic process suspected. CT Dissection 12/28/2022 FINDINGS: A left aortic arch is present with normal branching pattern of the great vessels.No acute aortic finding is seen such as aneurysm, penetrating ulcer or dissection. The celiac axis, SMA, ROSALBA and renal arteries are patent. No evidence of pulmonary embolism. The lungs are clear. Mild fatty liver.The spleen, pancreas, right adrenal gland and kidneys are within normal limits for arterial phase imaging.24 mm left adrenal mass. No bowel obstruction, free fluid or abscess.There is seen masslike lesion seen in the sigmoid colon. There are several diverticula in this region as well. Findings are quite worrisome neoplastic lesion.No pathologic enlarged lymphadenopathy identified. No fracture or worrisome bone lesion seen. Small fat containing left inguinal hernia. IMPRESSION: Masslike seen in the sigmoid colon, neoplasia is diagnosis of concern.Followup colonoscopy recommended. 24 mm left adrenal mass, nonspecific. MRI adrenal protocol would be helpful for further characterization. No acute vascular findings. C-spine MRI 12/29/22 FINDINGS: Images are degraded by patient motion artifact No significant abnormality craniocervical junction C2-3, C3-4, C4-5, C5-6, C6-7 and C7-T1 appear unremarkable. The spinal cord is normal caliber. Evaluation for abnormal signal limited secondary to the patient motion artifact No significant abnormal signal within the bones is noted. IMPRESSION: Grossly normal MRI cervical spine L-Spine 12/29/22 FINDINGS: L1-2, L2-3, L3-4 and L4-5 are unremarkable Mild disc desiccation L5-S1 with small disc bulge and annular fissure. Mild epidural lipomatosis extends into the sacral spinal canal. Thecal sac 7 millimeters. Neural foramina are patent No significant abnormal signal within the bones. IMPRESSION: Mild spondylosis and epidural lipomatosis L5-S1 resulting in mild to moderate central spinal stenosis Brief History of Present Illness: Patient is a 52-year-old male with a past medical history significant for hypertension who presents with complaint of substernal chest pain that has been ongoing intermittently for the past 3 months. Patient rated pain as 6/10 in severity and described pain as burning in quality. 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 He indicated that has been having low back pain as well as neck pain for the past 8 days ago and sometimes experiences shooting pain down his right lower extremity. Patient rated pain as 10/10 in severity and described pain as sharp in quality. Patient reported associated signs and symptoms of diaphoresis, nausea, headache, shortness of breath and occasional loss of appetite. Patient denies any other signs and symptoms. Symptoms are aggravated or relieved by nothing. Patient decided to present to the hospital due to worsening symptoms. Hospital Course: # Non-ST Segment Elevation Myocardial Infarction # Hypertension - Evaluation thus far: - EKG: without STEMI criteria, trend - Serial troponin: 83.5 -> 71.6 -> 74.4 - Transthoracic echocardiogram = "1. normal left ventricular ejection fract ion 55-60% 2. moderate concentric left ventricular hypertrophy 3. mild mitral regurgitation 4. grade I diastolic dysfunction" - Chest x-ray = "no acute intrathoracic process suspected." - CT dissection protocol = "masslike seen in the sigmoid colon, neoplasia is diagnosis of concern. Followup colonoscopy recommended. 24 mm left adrenal mass, nonspecific. MRI adrenal protocol would be helpful for further characterization. No acute vascular findings." - Management plan: - Consulted Cardiology and spoke with Dr. Felton - recommendations appreciated -Heart cath performed 12/29/22, cardiology recommends CABG, transfer initiated to [facility] and patient was accepted by CT surgeon Dr. Crabtree [facility]. 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 MRIs ordered to exclude metastatic lesions in the setting of a sigmoid colon mass. - MRI cervical spine = "grossly normal MRI cervical spine." - MRI lumbar spine = "mild spondylosis and epidural lipomatosis L5-S1 resulting in mild to moderate central spinal stenosis" - He had no unilateral weakness, saddle anesthesia, urinary/bowel incontinence to suggest cord compression - Advised to schedule a follow-up appointment with Neurology post-discharge # Sigmoid Colon Mass Lesion Noted on his CT abdomen/pelvis. He and his were counseled extensively on this finding. They were provided a copy of the CT report. It was explained to him the high concern for a colon malignancy and emphasis on the need for a colonoscopy was expressed. We currently do not have a Senior Game Developer partition setter, but I highly advised that he follow-up with Gastroenterology for an expedited colonoscopy as soon as he is discharged from the hospital. He and his verbalized understanding and agreed to make this appointment. 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 His laboratory studies do not support a diagnosis of a functioning adrenal tumor (i.e. sodium, potassium, bicarbonate are within normal limits). # Tobacco Use Disorder - Nicotine patch offered, he declined Patient transferred to [facility] under CT surgeon Dr. Crabtree for evaluation for possible CABG. Vital Signs/Physical Exam: Temp Pulse Resp BP Pulse Ox 97.9 F 70 14 172/97 H 95 12/29/22 17:46 12/29/22 17:46 12/29/22 17:46 12/29/22 17:46 12/29/22 17:46 General: Alert, In no apparent distress, Oriented x3 HEENT: Atraumatic, PERRLA, EOMI Neck: Supple, JVD not distended Respiratory: Clear to auscultation bilaterally, Normal air movement Cardiovascular: Regular rate/rhythm, Normal S1 S2 Capillary refill: <2 Seconds Gastrointestinal: Normal bowel sounds, No tenderness Musculoskeletal: No tenderness Integumentary: No rashes Neurological: Normal speech, Normal tone, Normal affect Laboratory Data at Discharge: WBC 8.00 K/uL (4.3-10.9) 12/29/22 02:07 Hgb 14.8 g/dL (13.6-17.9) 12/29/22 02:07 Hct 41.7 % (39.6-49.0) 12/29/22 02:07 Plt Count 136 thou/uL (152-406) L 12/29/22 02:07 PT 11.2 SECONDS (9.5-12.5) 12/28/22 14:14 INR 1.02 12/28/22 14:14 Sodium 138 mmol/L (136-145) 12/29/22 02:07 Potassium 3.8 mmol/L (3.5-5.1) 12/29/22 02:07 BUN 12 mg/dL (7-18) 12/29/22 02:07 Creatinine 0.97 mg/dL (0.70-1.30) 12/29/22 02:07 Glucose 187 mg/dL (74-106) H 12/29/22 02:07 Phosphorus 1.9 mg/dL (2.5-4.9) L 12/28/22 14:14 Magnesium 2.1 mg/dL (1.6-2.4) 12/28/22 14:14 Magnesium 2.2 mg/dL (1.6-2.4) 12/28/22 14:14 Total Bilirubin 0.6 mg/dL (0.2-1.0) 12/28/22 14:14 AST 27 U/L (15-37) 12/28/22 14:14 ALT 53 U/L (16-61) 12/28/22 14:14 Alkaline Phosphatase 119 U/L (45-117) H 12/28/22 14:14 Home Medications: Lisinopril/Hydrochlorothiazide [Lisinopril-Hctz 10-12.5 mg Tab] 1 each PO DAILY 12/28/22 Physician Discharge Instructions: Continue with POC at [facility] Diet: NPO Followup: NONE,NONE [Primary Care Provider] - Time spent managing pt's care (in minutes): 25
[2022-12-30 00:17] VITALS: TEMP 97.5
[2022-12-30] MEDS: HYDRALAZINE HCL 20 MG/ML VIAL IV PRN (00:22)
[2022-12-30] MEDS ORDERED: LABETALOL 20 MG/4ML SYRINGE IV ONE (01:03)
[2022-12-30] MEDS ORDERED: MORPHINE 2 MG/ML SYR IV ONE (01:05)
[2022-12-30 01:42] VITALS: BP 176/98
[2022-12-30 04:26] VITALS: O2SAT 96
== END 2022-12-30 01:55 | disposition short-term general hospital (02) | DRG 281 ==
LOC: ER 13:49 → ERHOLD 16:24 → 4TH 17:48
PROVIDERS: ADMIT Internal Medicine; ATTEND Internal Medicine
PROC: 4A023N7 Measurement of Cardiac Sampling and Pressure, Left Heart, Percutaneous Approach (ICD-10-PCS; principal; 2022-12-29)
PROC: B2111ZZ Fluoroscopy of Multiple Coronary Arteries using Low Osmolar Contrast (ICD-10-PCS; 2022-12-29)
DX: I21.4 Non-ST elevation (NSTEMI) myocardial infarction (principal); Z68.41 Body mass index [BMI] 40.0-44.9, adult; E66.9 Obesity, unspecified; I10 Essential (primary) hypertension; M54.2 Cervicalgia; E27.9 Disorder of adrenal gland, unspecified; K63.9 Disease of intestine, unspecified; E83.39 Other disorders of phosphorus metabolism; M48.061 Spinal stenosis, lumbar region without neurogenic claudication; F17.210 Nicotine dependence, cigarettes, uncomplicated; Z79.52 Long term (current) use of systemic steroids; Z79.899 Other long term (current) drug therapy; Z20.822 Contact with and (suspected) exposure to COVID-19
CPT/HCPCS: 36415; 71045; 71275; 72141; 72148; 74175; 80048; 80076; 83036; 83735; 83880; 84100; 84439; 84443; 84484; 85025; 85610; 87811; 93005; 93306; 93458; 96372; 96374; 96375; 99285; C1893; J0360; J0461; J1644; J1650; J1940; J2001; J2250; J2270; J2405; J3010; J7040; J7050; Q9966; Q9967

== ENCOUNTER 2023-04-19 18:57 | Emergency (ER) | payer OTHER ==
--- OUTSIDE RECORDS SUMMARY | 2023-04-19 19:06 | XMS REPORT | Continuity of Care Document ---
:1970 Author Organization [facility] t Address [address] [facility]. [address] [place] [address] Care Team Providers Name Role Phone PCP, PATIENT DOES NOT HAVE A Primary Care Physician UnavailEric Hathaway Attending Clinician Unavailable Wellington Cardenas Attending Clinician WELLINGTON CHAVEZ Attending Clinician Unavailable Eric Crabtree Admitting Clinician Unavailable WELLINGTON CHAVEZ Admitting Clinician Unavailable Payers Payer Name Policy Type Policy Number Effective Date Expiration Date S ource Problems This patient has no known problems. Allergies, Adverse Reactions, Alerts Allergy Allergy Status Severity Reaction(s) Onset Inactive Treating Comm ents Source Name Type Date Date Clinician No Known DA Active U [facility] Allergie 3-17 Clear s 00:00: Nicolas 00 [facility] NO KNOWN Drug Active Univers ALLERGIE Class it[facility] Social History Social Habit Start Date Stop Date Quantity Comments Source Sex Assigned At Uni versity [facility] Smoking Status Start Date Stop Date Source Unknown if ever smoked [facility] Medications Ordered Filled Start Stop Current Ordering Indication Dosage Frequency Signature Comments Components Source Medication Medication Date Date Medication? Clinician (SIG) Name Name cloNIDine 0 2020- No .2mg 0.2 mg, Univ ers (CATAPRES) 12-30 Oral, ity of tablet 0.2 01:30: 00:25 ONCE, 1 Bipin as mg 00 :00 dose, [facility] 12/30/19 at Branch 2030, STAT amLODIPine 2020-0 Yes [id number] 10mg Take 1 U nivers 10 mg 16 tablet by ity of tablet 00:00: mouth [place] 00 daily. [facility] Vital Signs Vital Name Observation Time Observation Value Comments Source Systolic blood 2019-12-31 01:00:00 162 mm[Hg] [facility] Diastolic blood 2019-12-31 01:00:00 98 mm[Hg] [facility] rate 2019-12-31 01:00:00 81 /min [facility] Respiratory rate 2019-12-31 01:00:00 16 /min [facility] Oxygen saturation in 2019-12-31 01:00:00 98 /min [facility] Arterial blood by [facility] Pulse oximetry [place] Body temperature 2019-12-30 23:02:00 36.78 Yessi [facility] Body weight 2019-12-30 23:02:[address] [facility] Procedures Procedure Date / Time Performing Clinician Source Performed [id number] 2023-01-02 00:00:00 CHAAB.01 [facility] [id number] 2023-01-02 00:00:00 CHAAB.01 [facility] [id number] 2023-01-02 00:00:00 CHAAB.01 [facility] [id number] 2023-01-02 00:00:00 CHAAB.01 [facility] [id number] 2023-01-02 00:00:00 CHAAB.01 [facility] [id number] 2023-01-02 00:00:00 CHAAB.01 [facility] [id number] 2023-01-02 00:00:[address] [facility] [address] HEAD WO CONTRAST 2019-12-31 00:42:[address] [facility] HEPATIC FUNCTION PANEL 2019-12-31 00:33:00 Wellington Chavez [facility] ([id number]) (ALB,T.PRO,BILI Medical Branch T,BU/BC,ALT,AST,ALK PHOS) BASIC METABOLIC PANEL 2019-12-31 00:33:00 Wellington Chavez [facility] (NA, K, CL, CO2, Medical Branch GLUCOSE, BUN, CREATININE, CA) CBC WITH DIFFERENTIAL 2019-12-31 00:33:00 Wellington Chavez [facility] ADC,CLC OR LCC ONLY - 2019-12-31 00:33:00 Wellington Chavez [facility] INFLUENZA A & B DIRECT Medical B ranch ANTIGEN NOTICE OF PRIVACY 2019-12-30 22:51:05 Doctor Unassigned, No [facility] PRACTICES Name Medical Branch Encounters Start End Encounter Admission Attending Care Care Encounter Source Date/Time Date/Time Type Type Clinicians Facility Department ID 2023-02-24 2023-02-24 Outpatient [facility] [id number] Hilario 08:31:53 08:31:53 0512 [facility] 2022-12-30 2023-01-09 Inpatient UR Chaarlen, HCACL INTE [id number] [facility] 04:41:00 11:53:[address] [place] [address] 2022-12-26 2022-12-26 Outpatient [facility] [id number] Hilario 16:37:11 16:37:11 0313 [place] 2022-09-15 2022-09-15 Outpatient SFA [facility] [id number] Hilario 08:55:00 08:55:00 1201 [address] [place] 2022-09-12 2022-09-12 Outpatient SFA SFA [id number] Hilario 15:47:48 15:47:48 1128 [facility] 2019-12-30 2019-12-30 Emergency Wellington Chavez [facility] [id number] Univers 18:03:19 20:58:00 T Denise [id number] i ty [place] [id number] [facility] [id number] [facility] 084 Branch 2019-12-30 2019-12-30 Emergency X WELLINGTON CHAVEZ [facility] ERT [id number] Univers 18:03:19 [facility] Results Test Description Test Time Test Comments Results Result Comments Source PREKALLIKREIN ASSAY 2023-02-28 11:10:51 Test Item Value Reference Range Interpretation Comme nts PREKALLIKREIN ASSAY (test code = 82 % 55-207 TESTING PERFORMED AT ASSOCIATED [address]) [facility], [address] [address] [place] [id number] CLIA NO. [id number] 05:27:29 Test Item Value Reference Range Interpretation Comments TRANSFERRIN (test code = 4936) 260 MG/DL 200-360 IRON BINDING CAPACITY AND IRON AND % [id number] 04:55:16 Test Item Value Reference Range Interpretation Comments IRON, SERUM (test 113 UG/DL 59-158 code = 2222) UNSATURATED IBC (test 210 UG/DL 112-347 code = ) CALC TOTAL IBC (test 323 UG/DL 250-450 code = 7) CALC % IRON SAT (test 35 % 20-50 UNLES S OTHERWISE code = 2079) INDICATED, ALL TESTING PERFORMED AT [facility] [address] [facility], [place] [address] 4 LABORATORY DIRE CTOR: SHAGUFTA OTERO M.D. CLIA NUMBER [id number] [facility] [place] [id number] COMPREHENSIVE METABOLIC [id number] 04:55:16 Test Item Value Reference Range Interpretation Comments GLUCOSE (test code = 158 MG/DL 70-99 H 2216) BUN (test code = 16 MG/DL 6-2207) CREATININE (test 0.97 MG/DL 0.80-1.40 code = 2214) eGFR (2020 CKD-EPI) 93 ML/MIN/1.73 >60 (test code = 03311) CALC BUN/CREAT (test 16 RATIO 6-28 code = 2235) SODIUM (test code = 143 MEQ/L 995-231 7449) POTASSIUM (test code 4.0 MEQ/L 3.5-5.4 = 2228) CHLORIDE (test code 103 MEQ/L 95-107 = 2215) CARBON DIOXIDE (test 22 MEQ/L 19-31 code = 2206) CALCIUM (test code = 9.7 MG/DL 8.5-10.5 2208) PROTEIN, TOTAL (test 7.1 G/DL 6.1-8.3 code = 2229) ALBUMIN (test code = 4.3 G/DL 3.5-5.2 2200) CALC GLOBULIN (test 2.8 G/DL 1.9-3.7 code = 2240) CALC A/G RATIO (test 1.5 RATIO 1.0-2.6 code = 2234) BILIRUBIN, TOTAL 0.4 MG/DL See_Comment [Automated message] (test code = 2207) The syste m which generated this result transmit melida reference range : <=1.2. The refe rence range was not u sed to interpret th is result as normal/abnormal . ALKALINE PHOSPHATASE 132 U/L 40-121 H (test code = 2203) AST (test code = 24 U/L 9-50 2217) ALT (test code = 27 U/L 5-50 2218) LIPID [id number] 04:55:16 Test Item Value Reference Range Interpretation Comments CHOLESTEROL (test 184 MG/DL <200 code = 2210) TRIGLYCERIDES (test 115 MG/DL <150 code = 2232) HDL CHOLESTEROL (test 44 MG/DL >39 code = 2220) CALC LDL CHOL (test 117 MG/DL <100 H NOTE: C ALCULATED LDL code = 2237) IS BASED ON RAKESH-BYRNE METHOD WHICHINCLUDES ADJUSTABLE TRIGLYCERIDE:VL DL CHOLESTEROL RAT IO.THIS FACTOR VARIES B Y MEASURED TRIGLY CERIDE AND NON-HDLCHOL ESTEROL CONCENTRATIONS WITH INCREASED CALCU LATED LDL SEENIN HIGH ER TRIGLYCERIDE OR LOWER NON-HDL SPECIME NS. FOR MOREINFORMATION , SEE CLIENT ANNOUNCE MENT AT [email or web address] RISK RATIO LDL/HDL 2.66 RATIO <3.55 (test code = 223) HEMOGLOBIN [id number] 03:34:22 Test Item Value Reference Range Interpretation Comments HEMOGLOBIN A1c (test 6.4 % 4.2-5.6 H AMERIC AN DIABETES code = 17280) ASSOCIATION IDELINES FOR HGB A1C: PREDIABETES/INC REASED RISK . . . . . . . 5.7 -6.4% DIAGNOSIS OF DI ABETES . . . . . . . . . >=6 .5% WITH CONFIRMATION OR APPROPRIATE SYMPTOMS NOTE: ASSAY MAY BE AFFECTED BY HEMOGLOBINOPATH IES (SICKLE CELL ANEMIA, S- C DISEASE, OTHERS) OR CLAU FICIALLY LOWERED BY DECR EASED RED CELL SURVIVAL ( HEMOLYTIC ANEMIAS, BLOOD LOSS, ETC.). CONSIDER ALTERN ATE TESTING OR LABORATORY C ONSULTATION. CBC W/AUTO DIFF WITH [id number] 03:02:37 Test Item Value Reference Range Interpretation Comments WBC (test code = 8.6 K/UL 3.5-11.0 1001) RBC (test code = 4.91 M/UL 4.50-6.10 1002) HEMOGLOBIN (test code 15.0 G/DL 13.5-17.0 = 1003) HEMATOCRIT (test code 44.6 % 40.0-51.0 = 1004) MCV (test code = 90.8 fL 80.0-99.0 1005) MCH (test code = 30.5 PG 25.0-33.0 1006) MCHC (test code = 33.6 G/DL 31.0-36.0 1007) RDW (test code = 12.7 % 11.5-15.0 1038) NEUTROPHILS (test 75.5 % code = 1008) LYMPHOCYTES (test 15.4 % code = 1010) MONOCYTES (test code 6.3 % = 1011) EOSINOPHILS (test 1.7 % code = 1012) BASOPHILS (test code 0.6 % = 1013) IMMATURE GRANULOCYTES 0.5 % (test code = 1036) NUCLEATED RBCS (test 0.0 /100 WBC'S See_Comment [Aut omated code = 1065) message] The sy stem which generated this result transmitted reference range : 0.0. The refere nce range was not u sed to interpret th is result as normal/abnormal . PLATELET COUNT (test 229 K/UL 130-400 code = 1015) ABSOLUTE NEUTROPHILS 6.51 K/UL 1.50-7.50 (test code = 1066) ABSOLUTE LYMPHOCYTES 1.33 K/UL 1.00-4.00 (test code = 1067) ABSOLUTE MONOCYTES 0.54 K/UL 0.20-1.00 (test code = 1068) ABSOLUTE EOSINOPHILS 0.15 K/UL 0.00-0.50 (test code = 1040) ABSOLUTE BASOPHILS 0.05 K/UL 0.00-0.20 (test code = 1069) ABS IMMATURE 0.04 K/UL 0.00-0.10 GRANULOCYTES (test code = 1020) ABS NUCLEATED RBCS 0.00 K/UL 0.00-0.11 (test code = 07426) BASIC METABOLIC [id number] 04:02:00 Test Item Value Reference Range Interpretation Comments SODIUM (test code = 133 mEq/L 134-147 L NA) POTASSIUM (test code 4.4 mEq/L 3.4-5.0 N = K) CHLORIDE (test code 99 mEq/L 100-108 L = CL) CARBON DIOXIDE (test 28 mEq/l 21-33 N code = CO2) ANION GAP (test code 11 0-20 N = GAP) GLUCOSE (test code = 155 mg/dL 70-110 H GLU) BLOOD UREA NITROGEN 12 mg/dL 7-18 N (test code = BUN) GLOMERULAR 102.1 90-95 H The Glomerular FILTRATION RATE Filtration R ate is a (test code = GFR) calculated parameterbased on serum Creatinine, pat ient age and sex. GFR va luesless than 60 mL/min/ 1.73 square meters a re indicative ofCh ronic Kidney Disease. Values less than 15 mL/min/1.73squa re meters indicate Kidney failure. The calculation forGFR is based on the CKD-EPI (2020) calculat ion. This formulais race indifferent and is the recommended for isaías for GFRby the [facility] Kidney Foundati on for Adults.The GFR will not calculate if th e sex is unknown or if thepatient's ag e is <18 years. CREATININE (test 0.9 mg/dL 0.6-1.3 N code = CREAT) CALCIUM (test code = 8.9 mg/dL 8.0-10.5 N CA) [id number] 04:02:00 Test Item Value Reference Range Interpretation Comments MAGNESIUM (test code = MAG) 2.00 mg/dL 1.80-2.40 N CBC W/AUTO [id number] 04:00:00 Test Item Value Reference Range Interpretation Comments WHITE BLOOD CELL (test code = 12.9 x10 3/uL 4.5-11.0 H WBC) RED BLOOD CELL (test code = 3.77 x10 6/uL 4.00-5.60 L RBC) HEMOGLOBIN (test code = HGB) 11.8 g/dL 12.5-16.9 L HEMATOCRIT (test code = HCT) 36.3 % 37.5-50.7 L MEAN CELL VOLUME (test code = 96.3 fL 81.0-99.0 N MCV) MEAN CELL HGB (test code = MCH) 31.3 pg 27.0-33.0 N MEAN CELL HGB CONCETRATION 32.5 g/dL 33.0-37.0 L (test code = MCHC) RED CELL DISTRIBUTION WIDTH CV 13.0 % 11.5-14.5 N (test code = RDW) RED CELL DISTRIBUTION WIDTH SD 45.3 fL 37.0-54.0 N (test code = RDW-SD) PLATELET COUNT (test code = 344 x10 3/uL 150-400 N PLT) MEAN PLATELET VOLUME (test code 9.1 fL 7.0-9.0 H = MPV) NEUTROPHIL % (test code = NT%) 69.8 % 56.0-77.0 N IMMATURE GRANULOCYTE % (test 1.2 % 0.0-2.0 N code = IG%) LYMPHOCYTE % (test code = LY%) 16.5 % 14.0-32.0 N MONOCYTE % (test code = MO%) 9.7 % 4.8-9.0 H EOSINOPHIL % (test code = EO%) 2.5 % 0.3-3.7 N BASOPHIL % (test code = BA%) 0.3 % 0.0-2.0 N NUCLEATED RBC % (test code = 0.0 % 0-0 N NRBC%) NEUTROPHIL # (test code = NT#) 8.96 x10 3/uL 2.0-7.6 H IMMATURE GRANULOCYTE # (test 0.16 x10 3/uL 0.00-0.03 H code = IG#) LYMPHOCYTE # (test code = LY#) 2.12 x10 3/uL 1.0-3.8 N MONOCYTE # (test code = MO#) 1.25 x10 3/uL 0.1-0.8 H EOSINOPHIL # (test code = EO#) 0.32 x10 3/uL 0.0-0.2 H BASOPHIL # (test code = BA#) 0.04 x10 3/uL 0.0-0.2 N NUCLEATED RBC # (test code = 0.00 x10 3/uL 0.0-0.1 N NRBC#) MANUAL DIFF REQUIRED (test code NO = ALLYSON) - XR CHEST 1 [id number] 00:00:00 [facility] 1970 Sex: M FAX: Eric Chairez [phone] [place]: St: ADM Name: KIERRASHEKHAR [facility] : 1970 Age/S: 52/M [address] [place] [address] Unit #: [id number] Loc: [address] [address] Phys: Eric Crabtree MD Acct: [id number] Dis Date: Status: ADM IN PHONE #: [phone] Exam Date: 01/09/2023 0707FAX #: [phone] Reason: S/P CABG, 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 EXAMS: CPT CODE: [id number] XR CHEST 1 V 61012 PROCEDURE INFORMATION: Exam: XR Chest Exam date and time: 01/09/2023 5:54 AM Age: 52 years old Clinical indication: Other: S/P cabg, R/O effusion TECHNIQUE: Imaging protocol: Radiologic exam of the chest. Views: 1 view. COMPARISON: CR XR CHEST 1V 01/08/2023 8:13 AM FINDINGS: Median sternotomy wires are present. Heart is stable in size. There is left basilar opacity with possible small left pleural effusion. Left apical linear opacity again noted. Right lung is clear. No pneumothorax. IMPRESSION: 1. Persistent left basilar opacity which may represent airspace disease and associated small left pleural effusion. 2. Left upper lobe linear opacity, suggesting discoid atelectasis. at 0829 Reported and signed by: Paulie Arvizu M.D. CC: Eric Crabtree MD Technologist: Khanh Santo RT(R) Trnscrd Date/Time/By: 01/09/2023 (828) : By: [email or web address] Orig Print D/T: S: 01/09/2023 (828) PAGE 1 Signed ReportBASIC METABOLIC PANEL 2023-01-08 02:49:00 Test Item Value Reference Range Interpretation Comments SODIUM (test code = 136 mEq/L 134-147 N NA) POTASSIUM (test code 4.2 mEq/L 3.4-5.0 N = K) CHLORIDE (test code 103 mEq/L 100-108 N = CL) CARBON DIOXIDE (test 29 mEq/l 21-33 N code = CO2) ANION GAP (test code 9 0-20 N = GAP) GLUCOSE (test code = 164 mg/dL 70-110 H GLU) BLOOD UREA NITROGEN 12 mg/dL 7-18 N (test code = BUN) GLOMERULAR 105.8 90-95 H The Glomerular FILTRATION RATE Filtration R ate is a (test code = GFR) calculated parameterbased on serum Creatinine, pat ient age and sex. GFR va luesless than 60 mL/min/ 1.73 square meters a re indicative ofCh ronic Kidney Disease. Values less than 15 mL/min/1.73squa re meters indicate Kidney failure. The calculation forGFR is based on the CKD-EPI (2020) calculat ion. This formulais race indifferent and is the recommended for isaías for GFRby the [facility] Kidney Foundati on for Adults.The GFR will not calculate if th e sex is unknown or if thepatient's ag e is <18 years. CREATININE (test 0.8 mg/dL 0.6-1.3 N code = CREAT) CALCIUM (test code = 8.7 mg/dL 8.0-10.5 N CA) [id number] 02:49:00 Test Item Value Reference Range Interpretation Comments MAGNESIUM (test code = MAG) 1.89 mg/dL 1.80-2.40 N CBC W/AUTO [id number] 02:29:00 Test Item Value Reference Range Interpretation Comments WHITE BLOOD CELL (test code = 10.1 x10 3/uL 4.5-11.0 N WBC) RED BLOOD CELL (test code = 3.61 x10 6/uL 4.00-5.60 L RBC) HEMOGLOBIN (test code = HGB) 11.4 g/dL 12.5-16.9 L HEMATOCRIT (test code = HCT) 34.0 % 37.5-50.7 L MEAN CELL VOLUME (test code = 94.2 fL 81.0-99.0 N MCV) MEAN CELL HGB (test code = MCH) 31.6 pg 27.0-33.0 N MEAN CELL HGB CONCETRATION 33.5 g/dL 33.0-37.0 N (test code = MCHC) RED CELL DISTRIBUTION WIDTH CV 12.8 % 11.5-14.5 N (test code = RDW) RED CELL DISTRIBUTION WIDTH SD 44.3 fL 37.0-54.0 N (test code = RDW-SD) PLATELET COUNT (test code = 261 x10 3/uL 150-400 N PLT) MEAN PLATELET VOLUME (test code 9.2 fL 7.0-9.0 H = MPV) NEUTROPHIL % (test code = NT%) 66.9 % 56.0-77.0 N IMMATURE GRANULOCYTE % (test 1.0 % 0.0-2.0 N code = IG%) LYMPHOCYTE % (test code = LY%) 17.6 % 14.0-32.0 N MONOCYTE % (test code = MO%) 11.5 % 4.8-9.0 H EOSINOPHIL % (test code = EO%) 2.6 % 0.3-3.7 N BASOPHIL % (test code = BA%) 0.4 % 0.0-2.0 N NUCLEATED RBC % (test code = 0.0 % 0-0 N NRBC%) NEUTROPHIL # (test code = NT#) 6.72 x10 3/uL 2.0-7.6 N IMMATURE GRANULOCYTE # (test 0.10 x10 3/uL 0.00-0.03 H code = IG#) LYMPHOCYTE # (test code = LY#) 1.77 x10 3/uL 1.0-3.8 N MONOCYTE # (test code = MO#) 1.16 x10 3/uL 0.1-0.8 H EOSINOPHIL # (test code = EO#) 0.26 x10 3/uL 0.0-0.2 H BASOPHIL # (test code = BA#) 0.04 x10 3/uL 0.0-0.2 N NUCLEATED RBC # (test code = 0.00 x10 3/uL 0.0-0.1 N NRBC#) MANUAL DIFF REQUIRED (test code NO = MDIFF) - DUP VEIN [id number] 00:00:00 [facility] 1970 Sex: M Name: SHEKHAR LOZADA [facility] : 1970 Age/S: 52 / M [address] [place] [address] Unit #:[id number] Loc: [place] [address] 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 [employer] Acct: [id number] Dis Date: Status: ADM IN PHONE #: [phone] Exam Date: 01/08/2023 155 FAX #: [phone] Reason: RULE OUT DVT EXAMS: CPT CODE: [id number] DUP VEIN ALEXY [id number] PROCEDURE INFORMATION: Exam: US Duplex Lower Extremity Veins, Bilateral Exam date and time: 01/08/2023 2:11 PM Age: 52 years old Clinical indication: Screening exam; S/P cabg; R/O dvt; Additional info: Rule out dvt TECHNIQUE: Imaging protocol: Real-time duplex ultrasound of the bilateral extremities with 2-D terry scale, color Doppler flow and spectral wavef orm analysis including responses to compression and other maneuvers (when performed) with image documentation. Complete exam focused on the lower extremity veins. COMPARISON: US DUP VEIN ALEXY 12/30/2022 10:10 AM FINDINGS: Right deep veins: Unremarkable. The common femoral, femoral, proximal profunda femoral and popliteal veins are patent without thrombus. Normal Doppler waveforms. Normal compressibility and/or augmentation response. Right superficial veins: Saphenofemoral junction shows echogenic thrombus and does not compress. Left deep veins: Unremarkable. The common femoral, femoral, proximal profunda femoral and popliteal veins are patent without thrombus. Normal Doppler waveforms. Normal compressibility and/or augmentation response. Left superficial veins: Saphenofemoral junction is patent without thrombus. Soft tissues: Right calf shows nonspecific hypoechoic collection without appreciable vascularity on color Doppler interrogation, possibly representing hematoma. Imaging findings do not exclude infection. IMPRESSION: No evidence of deep vein thrombosis. Right saphenous femoral junction echogenic thrombus at 1656 Reported and signed by: Martín Cuadra M.D. CC: Eric Crabtree MD; Caro Bingham NP Technologist: Sam Echevarria Trnscb Date/Time: 01/08/2023 (1655) [email or web address] Orig Print D/T: S: 01/08/2023 (1655) Probe: PAGE 1 Signed Report- XR CHEST 1 [id number] 00:00:00 [facility] 1970 Sex: M FAX: Eric Chairez [phone] [place]: St: ADM FAX: Bernie Bingham [phone] --- Name: NEELA LOZADA : 1970 Age/S: 52/M [address] [place] [address] Unit #: [id number] Loc: G.[address] [place] [address] Phys: Caro Damon NP Acct: [id number] Dis Date: Status: ADM IN PHONE #: Exam Date: 01/08/2023812 FAX #: [phone] Reason: Cardiac Surgery Post Op EXAMS: CPT CODE: [id number] XR CHEST 1 V 81186 PROCEDURE INFORMATION: Exam: XR Chest Exam date and time: 01/08/2023 8:13 AM Age: 52 years old Clinical indication: Cardiac surgery post op TECHNIQUE: Imaging protocol: Radiologic exam of the chest. Views: 1 view. COMPARISON: CR XR CHEST 1V 01/07/2023 7:27 AM FINDINGS: Lungs: Stable left basilar opacity. Right lung remains clear. Pulmonary vasculature normal. Stableopacity above the left hilum. Pleural spaces: Possible left pleural fluid. No pleural abnormality onthe right. Heart/Mediastinum: Stable cardiomegaly. Diaphragm: Left hemidiaphragm completely obscured. Bones/joints: Sternotomy. IMPRESSION: Stable chest. at 1052 Reported and signed by: Pk Obregon M.D. CC: Eric Crabtree MD; Caro Bingham NP Technologist: Balbir Fontana; Zoya [place], RT(R) Trnscrd Date/Time/By: 01/08/2023 (1986) : By: [email or web address] Orig Print D/T: S: 01/08/2023 (0983) PAGE 1 Signed ReportBASIC METABOLIC [id number] 14:06:00 Test Item Value Reference Range Interpretation Comments SODIUM (test code = 134 mEq/L 134-147 N NA) POTASSIUM (test code 4.1 mEq/L 3.4-5.0 N = K) CHLORIDE (test code 101 mEq/L 100-108 N = CL) CARBON DIOXIDE (test 27 mEq/l 21-33 N code = CO2) ANION GAP (test code 10 0-20 N = GAP) GLUCOSE (test code = 147 mg/dL 70-110 H GLU) BLOOD UREA NITROGEN 11 mg/dL 7-18 N (test code = BUN) GLOMERULAR 105.8 90-95 H The Glomerular FILTRATION RATE Filtration R ate is a (test code = GFR) calculated parameterbased on serum Creatinine, pat ient age and sex. GFR va luesless than 60 mL/min/ 1.73 square meters a re indicative ofCh ronic Kidney Disease. Values less than 15 mL/min/1.73squa re meters indicate Kidney failure. The calculation forGFR is based on the CKD-EPI (2020) calculat ion. This formulais race indifferent and is the recommended for isaías for GFRby the [facility] Kidney Foundati on for Adults.The GFR will not calculate if th e sex is unknown or if thepatient's ag e is <18 years. CREATININE (test 0.8 mg/dL 0.6-1.3 N code = CREAT) CALCIUM (test code = 8.5 mg/dL 8.0-10.5 N CA) [id number] 14:06:00 Test Item Value Reference Range Interpretation Comments MAGNESIUM (test code = MAG) 1.91 mg/dL 1.80-2.40 N CBC W/AUTO [id number] 13:46:00 Test Item Value Reference Range Interpretation Comments WHITE BLOOD CELL (test code = 10.3 x10 3/uL 4.5-11.0 N WBC) RED BLOOD CELL (test code = 3.78 x10 6/uL 4.00-5.60 L RBC) HEMOGLOBIN (test code = HGB) 11.8 g/dL 12.5-16.9 L HEMATOCRIT (test code = HCT) 35.9 % 37.5-50.7 L MEAN CELL VOLUME (test code = 95.0 fL 81.0-99.0 N MCV) MEAN CELL HGB (test code = MCH) 31.2 pg 27.0-33.0 N MEAN CELL HGB CONCETRATION 32.9 g/dL 33.0-37.0 L (test code = MCHC) RED CELL DISTRIBUTION WIDTH CV 13.0 % 11.5-14.5 N (test code = RDW) RED CELL DISTRIBUTION WIDTH SD 44.9 fL 37.0-54.0 N (test code = RDW-SD) PLATELET COUNT (test code = 291 x10 3/uL 150-400 PLT) MEAN PLATELET VOLUME (test code 9.4 fL 7.0-9.0 H = MPV) NEUTROPHIL % (test code = NT%) 66.9 % 56.0-77.0 N IMMATURE GRANULOCYTE % (test 0.9 % 0.0-2.0 N code = IG%) LYMPHOCYTE % (test code = LY%) 17.1 % 14.0-32.0 N MONOCYTE % (test code = MO%) 11.6 % 4.8-9.0 H EOSINOPHIL % (test code = EO%) 3.1 % 0.3-3.7 N BASOPHIL % (test code = BA%) 0.4 % 0.0-2.0 N NUCLEATED RBC % (test code = 0.0 % 0-0 N NRBC%) NEUTROPHIL # (test code = NT#) 6.90 x10 3/uL 2.0-7.6 N IMMATURE GRANULOCYTE # (test 0.09 x10 3/uL 0.00-0.03 H code = IG#) LYMPHOCYTE # (test code = LY#) 1.76 x10 3/uL 1.0-3.8 N MONOCYTE # (test code = MO#) 1.20 x10 3/uL 0.1-0.8 H EOSINOPHIL # (test code = EO#) 0.32 x10 3/uL 0.0-0.2 H BASOPHIL # (test code = BA#) 0.04 x10 3/uL 0.0-0.2 N NUCLEATED RBC # (test code = 0.00 x10 3/uL 0.0-0.1 N NRBC#) MANUAL DIFF REQUIRED (test code NO = MDIFF) - XR CHEST 1 [id number] 00:00:00 [facility] : 1970 Sex: M FAX: Eric Chairez [phone] [place]: St: ADM FAX: Bernie Bingham [phone] --- [facility] 1970 Age[facility]S: 52/M [address] [place] [address] Unit #: [id number] Loc: [id number] [place] [address] Phys: Caro Damon [employer]ITER[employer] Acct: [id number] Dis Date: Status: ADM IN PHONE #: Exam Date: 01/07/2023727 FAX #: [phone] Reason: Cardiac Surgery Post Op EXAMS: CPT CODE: [id number] XR CHEST 1 V [id number] PROCEDURE INFORMATION: Exam: XR Chest Exam date and time: 01/07/2023 7:27 AM Age: 52 years old Clinical indication: Other: Cardiac surgery post op TECHNIQUE: Imaging protocol: Radiologic exam of the chest. Views: 1 view. COMPARISON: CR XR CHEST 1V 01/06/2023 4:56 AMFINDINGS: Lungs: Pulmonary vasculature normal. Residual dense opacification of the left lung base. Mild opacity also noted just above the left hilum. Distribution similar to prior. Pleural spaces: No definite pleural fluid or gas. Heart/Mediastinum: Stable moderate cardiomegaly. Bones/joints: Sternotomy. No significant skeletal abnormality. IMPRESSION: Stable chest. at 0907 Reported and signed by: Pk Obregon M.D. CC: Eric Crabtree MD; Caro Bingham NP Technologist: Balbir Fontana; RT Julian(R) Trnscrd Date/Time/By: 01/07/2023 (906) : By: [email or web address] Orig Print D/T: S: 01/07/2023 (906) PAGE 1 Signed ReportPOC ARTERIAL BLOOD [id number] 08:15:00 Test Item Value Reference Range Interpretation Comments POC ARTERIAL BLOOD GAS PH (test 7.408 7.35-7.45 N code = POCPHA) POC ARTERIAL BLOOD GAS PCO2 40.3 mmHg 35.0-45 N (test code = [id number]) POC TCO2 ARTERIAL (test code = 26.4 POCTCO2) POC ARTERIAL BLOOD GAS PO2 (test 188.4 mmHg 80-100.0 H code = DKYUN2O) POC HCO3 ARTERIAL (test code = 25.2 MMOL/L 22.0-26.0 N [id number]) POC BASE EXCESS (test code = 0.7 MMOL/L -4.0-4.0 N POCBEA) POC O2 SATURATION (test code = 99.6 % 90-100 N POCO2S) FIO2 (test code = FIO2A) 36 % PaO2/FiO2 (test code = [id number]) 523.33 mm/Hg ABG DELIVERY (test code = REBA) Cannula ABG TEMPERATURE (test code = 100.4 F TEMPA) ABG SITE (test code = SITEA) Art Line BASIC METABOLIC [id number] 08:15:00 Test Item Value Reference Range Interpretation Comments SODIUM (test code = NA/ABG) 136 mmol/L 134-147 N POTASSIUM (test code = K/ABG) 3.5 mmol/L 3.4-5.0 N CHLORIDE (test code = CL/ABG) 99 mmol/L 100-108 L CREATININE ABG (test code = 0.5 mg/dL 0.8-1.3 L CREAABG) POC IONIZED CALCIUM (test code = 1.14 MMOL/L 1.12-1.32 N POCCA) POC GLUCOSE (test code = POCGLU) 171 MG/DL 70-110 H HEMOGLOBIN [id number] 08:15:00 Test Item Value Reference Range Interpretation Comments HEMOGLOBIN ABG (test code = HGB/ABG) 8.4 G/DL 12.5-16.9 L [id number] 08:15:00 Test Item Value Reference Range Interpretation Comments HEMATOCRIT (test code = HCT/ABG) 25 % 37.5-50.7 L POC LACTIC [id number] 08:15:00 Test Item Value Reference Range Interpretation Comments POC LACTIC ACID (test code = 2.4 mmol/l 0.9-1.7 H POCLAC) POC ARTERIAL BLOOD [id number] 04:01:00 Test Item Value Reference Range Interpretation Comments POC ARTERIAL BLOOD GAS PH (test 7.423 7.35-7.45 N code = POCPHA) POC ARTERIAL BLOOD GAS PCO2 (test 43.6 mmHg 35.0-45 N code = IHQJFJ6Q) POC TCO2 ARTERIAL (test code = 29.8 POCTCO2) POC ARTERIAL BLOOD GAS PO2 (test 69.1 mmHg 80-100.0 L code = BBUZY3V) POC HCO3 ARTERIAL (test code = 28.5 MMOL/L 22.0-26.0 HH YAKBYO6K) POC BASE EXCESS (test code = 4.1 MMOL/L -4.0-4.0 H POCBEA) POC O2 SATURATION (test code = 93.8 % 90-100 N POCO2S) ABG DELIVERY (test code = REBA) Cannula ABG SITE (test code = SITEA) R Radial MICHAEL'S TEST (test code = ALLENS) Positive BASIC METABOLIC [id number] 03:26:00 Test Item Value Reference Range Interpretation Comments SODIUM (test code = 139 mEq/L 134-147 N NA) POTASSIUM (test code 4.2 mEq/L 3.4-5.0 N = K) CHLORIDE (test code 105 mEq/L 100-108 N = CL) CARBON DIOXIDE (test 28 mEq/l 21-33 N code = CO2) ANION GAP (test code 10 0-20 N = GAP) GLUCOSE (test code = 137 mg/dL 70-110 H GLU) BLOOD UREA NITROGEN 14 mg/dL 7-18 N (test code = BUN) GLOMERULAR 105.8 90-95 H The Glomerular FILTRATION RATE Filtration R ate is a (test code = GFR) calculated parameterbased on serum Creatinine, pat ient age and sex. GFR va luesless than 60 mL/min/ 1.73 square meters a re indicative ofCh ronic Kidney Disease. Values less than 15 mL/min/1.73squa re meters indicate Kidney failure. The calculation forGFR is based on the CKD-EPI (2020) calculat ion. This formulais race indifferent and is the recommended for isaías for GFRby the [facility] Kidney Foundati on for Adults.The GFR will not calculate if th e sex is unknown or if thepatient's ag e is <18 years. CREATININE (test 0.8 mg/dL 0.6-1.3 N code = CREAT) CALCIUM (test code = 8.3 mg/dL 8.0-10.5 N CA) [id number] 03:26:00 Test Item Value Reference Range Interpretation Comments MAGNESIUM (test code = MAG) 2.03 mg/dL 1.80-2.40 N CBC W/AUTO [id number] 03:09:00 Test Item Value Reference Range Interpretation Comments WHITE BLOOD CELL (test code = 10.1 x10 3/uL 4.5-11.0 N WBC) RED BLOOD CELL (test code = 3.37 x10 6/uL 4.00-5.60 L RBC) HEMOGLOBIN (test code = HGB) 10.7 g/dL 12.5-16.9 L HEMATOCRIT (test code = HCT) 32.1 % 37.5-50.7 L MEAN CELL VOLUME (test code = 95.3 fL 81.0-99.0 N MCV) MEAN CELL HGB (test code = MCH) 31.8 pg 27.0-33.0 N MEAN CELL HGB CONCETRATION 33.3 g/dL 33.0-37.0 N (test code = MCHC) RED CELL DISTRIBUTION WIDTH CV 13.2 % 11.5-14.5 N (test code = RDW) RED CELL DISTRIBUTION WIDTH SD 45.2 fL 37.0-54.0 N (test code = RDW-SD) PLATELET COUNT (test code = 167 x10 3/uL 150-400 N PLT) MEAN PLATELET VOLUME (test code 10.1 fL 7.0-9.0 H = MPV) NEUTROPHIL % (test code = NT%) 69.0 % 56.0-77.0 N IMMATURE GRANULOCYTE % (test 0.8 % 0.0-2.0 N code = IG%) LYMPHOCYTE % (test code = LY%) 15.8 % 14.0-32.0 N MONOCYTE % (test code = MO%) 12.4 % 4.8-9.0 H EOSINOPHIL % (test code = EO%) 1.7 % 0.3-3.7 N BASOPHIL % (test code = BA%) 0.3 % 0.0-2.0 N NUCLEATED RBC % (test code = 0.0 % 0-0 N NRBC%) NEUTROPHIL # (test code = NT#) 6.98 x10 3/uL 2.0-7.6 N IMMATURE GRANULOCYTE # (test 0.08 x10 3/uL 0.00-0.03 H code = IG#) LYMPHOCYTE # (test code = LY#) 1.60 x10 3/uL 1.0-3.8 N MONOCYTE # (test code = MO#) 1.25 x10 3/uL 0.1-0.8 H EOSINOPHIL # (test code = EO#) 0.17 x10 3/uL 0.0-0.2 N BASOPHIL # (test code = BA#) 0.03 x10 3/uL 0.0-0.2 N NUCLEATED RBC # (test code = 0.00 x10 3/uL 0.0-0.1 N NRBC#) MANUAL DIFF REQUIRED (test code NO = MDIFF) COMMENTS: Daily while on Heparin- XR CHEST 1 [id number] 00:00:00 [facility] 1970 Sex: M FAX: Eric Chairez [phone] [place]: St: ADM FAX: Bernie Bingham [phone] -- Name: SHEKHAR LOZADA [facility] : 1970 Age/S: 52/M [address] [place] [address] Unit #: [id number] Loc: G.2205 [place] [address] Phys: Caro Damon WAITER/WAITRESS [employer]OND [employer] Acct: [id number] Dis Date: Status: ADM IN PHONE #: [phone] Exam Date: 01/06/20238 FAX #: [phone] Reason: Cardiac Surgery Post Op EXAMS:CPT CODE: [id number] XR CHEST 1 V 32681 PROCEDURE INFORMATION: Exam: XR Chest Exam date and time: 01/06/2023 4:56 AM Age: 52 years old Clinical indication: Cardiac surgery post op TECHNIQUE: Imaging protocol: Radiologic exam of the chest. Views: 1 view. Portable technique, shallow inspiration. COMPARISON: CR XR CHEST 1V 01/05/2023 5:04 AM FINDINGS: Lungs: Stable confluent opacification of the medial right base. Confluent left basilar opacity, mildly increased. Residual upper lobe opacity with mild improvement; morphology favors atelectasis. Density of the right lung base mildly improved. Pleural spaces: There could be a small amount of pleural fluid on the left. No pneumothorax. Heart/Mediastinum: Stable cardiomegaly. Diaphragm: Left diaphragm completely obscured. Medial right diaphragm also obscured. Right hemidiaphragm now more clearly delineated. Bones/joints: Sternotomy. IMPRESSION: 1. Improveme nt of bilateral upper lobe and right basilar opacity since the most recent exam. 2. Dense opacification of the left lung base, mildly increased. at 0805 Reported and signed by: Pk Obregon M.D. CC: Eric Crabtree MD; Caro Bingham NP Technologist: RT Eric(R) Trnscrd Date/Time/By: 01/06/2023 (804) : By: [email or web address] Orig Print D/T: S: 01/06/2023 (804) PAGE 1 Signed ReportPOC ARTERIAL BLOOD [id number] 03:57:00 Test Item Value Reference Range Interpretation Comments POC ARTERIAL BLOOD GAS PH (test 7.424 7.35-7.45 N code = POCPHA) POC ARTERIAL BLOOD GAS PCO2 (test 45.1 mmHg 35.0-45 H code = [id number]) POC TCO2 ARTERIAL (test code = 30.9 POCTCO2) POC ARTERIAL BLOOD GAS PO2 (test 65.2 mmHg 80-100.0 L code = TNVCG5O) POC HCO3 ARTERIAL (test code = 29.5 MMOL/L 22.0-26.0 HH [id number]) POC BASE EXCESS (test code = 5.1 MMOL/L -4.0-4.0 H POCBEA) POC O2 SATURATION (test code = 92.7 % 90-100 N POCO2S) ABG DELIVERY (test code = REBA) Cannula ABG SITE (test code = SITEA) R Radial MICHAEL'S TEST (test code = ALLENS) Positive CBC W/AUTO [id number] 03:31:00 Test Item Value Reference Range Interpretation Comments WHITE BLOOD CELL (test code = 11.7 x10 3/uL 4.5-11.0 H WBC) RED BLOOD CELL (test code = 3.40 x10 6/uL 4.00-5.60 L RBC) HEMOGLOBIN (test code = HGB) 10.8 g/dL 12.5-16.9 L HEMATOCRIT (test code = HCT) 32.4 % 37.5-50.7 L MEAN CELL VOLUME (test code = 95.3 fL 81.0-99.0 N MCV) MEAN CELL HGB (test code = MCH) 31.8 pg 27.0-33.0 N MEAN CELL HGB CONCETRATION 33.3 g/dL 33.0-37.0 N (test code = MCHC) RED CELL DISTRIBUTION WIDTH CV 13.2 % 11.5-14.5 N (test code = RDW) RED CELL DISTRIBUTION WIDTH SD 46.0 fL 37.0-54.0 N (test code = RDW-SD) PLATELET COUNT (test code = 139 x10 3/uL 150-400 L PLT) MEAN PLATELET VOLUME (test code 10.0 fL 7.0-9.0 H = MPV) NEUTROPHIL % (test code = NT%) 74.7 % 56.0-77.0 N IMMATURE GRANULOCYTE % (test 0.6 % 0.0-2.0 N code = IG%) LYMPHOCYTE % (test code = LY%) 11.4 % 14.0-32.0 L MONOCYTE % (test code = MO%) 12.8 % 4.8-9.0 H EOSINOPHIL % (test code = EO%) 0.3 % 0.3-3.7 N BASOPHIL % (test code = BA%) 0.2 % 0.0-2.0 N NUCLEATED RBC % (test code = 0.0 % 0-0 N NRBC%) NEUTROPHIL # (test code = NT#) 8.74 x10 3/uL 2.0-7.6 H IMMATURE GRANULOCYTE # (test 0.07 x10 3/uL 0.00-0.03 H code = IG#) LYMPHOCYTE # (test code = LY#) 1.33 x10 3/uL 1.0-3.8 N MONOCYTE # (test code = MO#) 1.50 x10 3/uL 0.1-0.8 H EOSINOPHIL # (test code = EO#) 0.03 x10 3/uL 0.0-0.2 N BASOPHIL # (test code = BA#) 0.02 x10 3/uL 0.0-0.2 N NUCLEATED RBC # (test code = 0.00 x10 3/uL 0.0-0.1 N NRBC#) MANUAL DIFF REQUIRED (test code NO = MDIFF) COMMENTS: Daily while on HeparinBASIC METABOLIC [id number] 03:28:00 Test Item Value Reference Range Interpretation Comments SODIUM (test code = 136 mEq/L 134-147 N NA) POTASSIUM (test code 4.5 mEq/L 3.4-5.0 N = K) CHLORIDE (test code 103 mEq/L 100-108 N = CL) CARBON DIOXIDE (test 29 mEq/l 21-33 N code = CO2) ANION GAP (test code 9 0-20 N = GAP) GLUCOSE (test code = 143 mg/dL 70-110 H GLU) BLOOD UREA NITROGEN 16 mg/dL 7-18 N (test code = BUN) GLOMERULAR 105.8 90-95 H The Glomerular FILTRATION RATE Filtration R ate is a (test code = GFR) calculated parameterbased on serum Creatinine, pat ient age and sex. GFR va luesless than 60 mL/min/ 1.73 square meters a re indicative ofCh ronic Kidney Disease. Values less than 15 mL/min/1.73squa re meters indicate Kidney failure. The calculation forGFR is based on the CKD-EPI (2020) calculat ion. This formulais race indifferent and is the recommended for isaías for GFRby the [facility] Found[facility] on for Adults.The GFR will not calculate if th e sex is unknown or if thepatient's ag e is <18 years. CREATININE (test 0.8 mg/dL 0.6-1.3 N code = CREAT) CALCIUM (test code = 8.4 mg/dL 8.0-10.5 N CA) COMMENTS: POD #1HEPATIC FUNCTION [id number] 03:28:00 Test Item Value Reference Range Interpretation Comments TOTAL PROTEIN (test code = PROT) 5.6 g/dL 6.4-8.2 L ALBUMIN (test code = ALB) 3.20 g/dL 3.4-5.0 L BILIRUBIN TOTAL (test code = BILT) 0.90 mg/dL 0.0-1.0 BILIRUBIN DIRECT (test code = 0.40 MG/DL 0.0-0.30 H BILD) BILIRUBIN INDIRECT (test code = 0.50 MG/DL BILIND) SGOT/AST (test code = AST) 36 IUnit/L 15-37 N SGPT/ALT (test code = ALT) 25 IUnit/L 30-65 L ALKALINE PHOSPHATASE TOTAL (test 60 IUnit/L 20-125 N code = ALKP) COMMENTS: POD #[id number] 03:28:00 Test Item Value Reference Range Interpretation Comments MAGNESIUM (test code = MAG) 2.25 mg/dL 1.80-2.40 N COMMENTS: POD #1- XR CHEST 1 [id number] 00:00:00 [facility] 1970 Sex: M FAX: Eric Chairez [phone] [place]: St: ADM FAX: Bernie Bingham [phone] -- Name: SHEKHAR LOZADA [facility] : 1970 Age/S: 52/M [address] [place], [place] [address] Unit #: [id number] Loc: Minh5 [place] [address] Phys: Caro Damon WAITER/WAITRESS SECOND CLASS Acct: [id number] Dis Date: Status: ADM IN PHONE #: [phone] Exam Date: 01/05/2023 0700 FAX #: [phone] Reason: Cardiac Surgery Post Op Report Has Been Amended EXAMS: CPT CODE: [id number] XR CHEST 1 V 16539 Addendum - 01/05/2023 SIGNED 01/05/2023 ADDENDUM: [id number] RAD/CXR1 Findings of possible small left pneumothorax were discussed withDr. Esparza by phone at 01/05/2023 8:18 AM CDT. at 0819 Reported and signed by: Hilario Bentley M.D. Report PROCEDURE INFORMATION: Exam: XR Chest Exam date and time: 01/05/2023 5:04 AM Age: 52 years old Clinical indication: Other: Cardiac surgery post op TECHNIQUE: Imaging protocol: Radiologic exam of the chest. Views: 1 view. COMPARISON: CR XRCHEST 1V 01/04/2023 4:59 AM FINDINGS: Tubes, catheters and devices: Removal of the right IJ central line. Removal of the left chest tube. Lungs: Mild worsening right basilar opacities. The other lung opacities are stable. Pleural spaces: Question small left pleural effusion, stable. Small left pneumothorax. Heart/Mediastinum: Stable enlarged heart size. Vasculature: Atherosclerotic calcifications. Bones/joints: Stable. Median sternotomy wires. IMPRESSION: 1. Mild worsening right basilar opacities. 2.Removal of left chest tube. Suspected small left pneumothorax involving 10% volume. 3. Removal of the right IJ central line. PAGE 1 Signed Report (CONTINUED) FAX: Eric Chairez [phone] [place]: St: ADM FAX: Bernie Bingham [phone] Name: SHEKHAR LOZADA [facility] : 1970 Age/S: 52/M [address] [place] [address] Unit #: [id number] Loc: [address] [place] [address] Phys: Caro Bingham NP Acct: [id number] Dis Date: Status: ADM IN PHONE #: [phone] Exam Date: 01/05/2023 0700 FAX #: [phone] Reason: Cardiac Surgery Post Op Report Has Been Amended EXAMS: CPT CODE: [id number] XR CHEST 1 V 37669 (Continued) ce0101 Reported and signed by: Hialrio Bentley M.D. 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[facility] BASIC METABOLIC [id number] 14:57:00 Test Item Value Reference Range Interpretation Comments SODIUM (test code = 134 mEq/L 134-147 N NA) POTASSIUM (test code 4.4 mEq/L 3.4-5.0 N = K) CHLORIDE (test code 103 mEq/L 100-108 N = CL) CARBON DIOXIDE (test 27 mEq/l 21-33 N code = CO2) ANION GAP (test code 8 0-20 N = GAP) GLUCOSE (test code = 146 mg/dL 70-110 H GLU) BLOOD UREA NITROGEN 17 mg/dL 7-18 N (test code = BUN) GLOMERULAR 102.1 90-95 H The Glomerular FILTRATION RATE Filtration R ate is a (test code = GFR) calculated parameterbased on serum Creatinine, pat ient age and sex. GFR va luesless than 60 mL/min/ 1.73 square meters a re indicative ofCh ronic Kidney Disease. Values less than 15 mL/min/1.73squa re meters indicate Kidney failure. The calculation forGFR is based on the CKD-EPI (2020) calculat ion. This formulais race indifferent and is the recommended for isaías for GFRby the [facility] Kidney Foundati on for Adults.The GFR will not calculate if th e sex is unknown or if thepatient's ag e is <18 years. CREATININE (test 0.9 mg/dL 0.6-1.3 N code = CREAT) CALCIUM (test code = 7.6 mg/dL 8.0-10.5 L CA) [id number] 13:47:00 Test Item Value Reference Range Interpretation Comments SURGICAL (test code = SR) R UN DATE: 01/04/23 [place] - LAB PAGE 1 RUN TIME: 1347 Specimen Inquiry RUN USER: INTERFACE P ATIENT: SHEKHAR LOZADA [facility] #: [id number] AGE/SX: 52/M ROOM: [facility] [place] RE12/30/22REG DR: Eric Crabtree : [birth year] BED: 1 DIS: STATUS: ADM IN TLOC: SPEC #: [id number] RECD: 01/03/23 STATUS: PADDY CORTES #: [id number] RAMY: 01/02/23- [facility] DR: Eric Crabtree MD ENTERED: 01/03/23 SP TYPE: SURGICAL OTHR DR: Milagros Weaver MD, Anas MD Pillai, Regina MDORDERED: 40032, ANATOMIC SPEC COPIES TO: Milagros Weaver MD [address] [place] [address] Eric Crabtree MD [address] [facility]. [address] [place] [address] Mick Resendiz MD [address] [place] [address] Rupinder Marcus MD [address] [place] [address] PROCEDURES: 34553 (01/03/23) TISSUES: A. ATRIUM - LEFT ATRIAL APPENDAGE FINAL DIAGNOSIS Heart, left atrial appendage, submitted: Cardiac muscle with some degenerative changes,consistent with atrial appendage. GROSS DESCRIPTION Received in formalin labeled left atrial appendage is a 3 x 2 x 1 cm portion of musculartissue with attached adipose submitted (A). Technical component [facility] [place] [address], [place] [address] CONTINUED ON NEXT PAGE R UN DATE: 01/04/23 [place] - LAB PAGE 2 RUN TIME: 1347 Specimen Inquiry RUN USER: INTERFACE S DONITA #: [id number] PATIENT: SHEKHAR LOZADA #[id number] (Continued) GROSS DESCRIPTION (Continued) Unless gross only, the diagnosis is based upon microscopic examination.Immunohistochemistr y: This test was developed and its performance characteristicsdetermined by this laboratory. It has not been approved nor does it need approvalby the [place] FDA. Appropriate positive and negative controls are reviewed and judgedto be acceptable. This laboratory is certified under the Clinical Laboratory ImprovementAmendments (CLIA-88) as qualified to perform high complexity clinical laboratory testing. 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[facility] BASIC METABOLIC [id number] 04:58:00 Test Item Value Reference Range Interpretation Comments SODIUM (test code = 136 mEq/L 134-147 N NA) POTASSIUM (test code 4.6 mEq/L 3.4-5.0 N = K) CHLORIDE (test code 103 mEq/L 100-108 N = CL) CARBON DIOXIDE (test 26 mEq/l 21-33 N code = CO2) ANION GAP (test code 12 0-20 N = GAP) GLUCOSE (test code = 171 mg/dL 70-110 H GLU) BLOOD UREA NITROGEN 22 mg/dL 7-18 H (test code = BUN) GLOMERULAR 80.3 90-95 L The Glomerular FILTRATION RATE Filtration R ate is a (test code = GFR) calculated parameterbased on serum Creatinine, pat ient age and sex. GFR va luesless than 60 mL/min/ 1.73 square meters a re indicative ofCh ronic Kidney Disease. Values less than 15 mL/min/1.73squa re meters indicate Kidney failure. The calculation forGFR is based on the CKD-EPI (2020) calculat ion. This formulais race indifferent and is the recommended for isaías for GFRby the [facility] Kidney Foundati on for Adults.The GFR will not calculate if th e sex is unknown or if thepatient's ag e is <18 years. CREATININE (test 1.1 mg/dL 0.6-1.3 N code = CREAT) CALCIUM (test code = 8.1 mg/dL 8.0-10.5 N CA) COMMENTS: POD #1HEPATIC FUNCTION [id number] 04:58:00 Test Item Value Reference Range Interpretation Comments TOTAL PROTEIN (test code = PROT) 6.2 g/dL 6.4-8.2 L ALBUMIN (test code = ALB) 3.70 g/dL 3.4-5.0 N BILIRUBIN TOTAL (test code = BILT) 1.30 mg/dL 0.0-1.0 H BILIRUBIN DIRECT (test code = 0.60 MG/DL 0.0-0.30 H BILD) BILIRUBIN INDIRECT (test code = 0.70 MG/DL BILIND) SGOT/AST (test code = AST) 47 IUnit/L 15-37 H SGPT/ALT (test code = ALT) 39 IUnit/L 30-65 N ALKALINE PHOSPHATASE TOTAL (test 63 IUnit/L 20-125 N code = ALKP) COMMENTS: POD #[id number] 04:58:00 Test Item Value Reference Range Interpretation Comments MAGNESIUM (test code = MAG) 2.43 mg/dL 1.80-2.40 H COMMENTS: POD #1CBC W/AUTO [id number] 04:51:00 Test Item Value Reference Range Interpretation Comments WHITE BLOOD CELL (test code = 18.0 x10 3/uL 4.5-11.0 H WBC) RED BLOOD CELL (test code = 3.73 x10 6/uL 4.00-5.60 L RBC) HEMOGLOBIN (test code = HGB) 12.0 g/dL 12.5-16.9 L HEMATOCRIT (test code = HCT) 35.3 % 37.5-50.7 L MEAN CELL VOLUME (test code = 94.6 fL 81.0-99.0 N MCV) MEAN CELL HGB (test code = 32.2 pg 27.0-33.0 N MCH) MEAN CELL HGB CONCETRATION 34.0 g/dL 33.0-37.0 N (test code = MCHC) RED CELL DISTRIBUTION WIDTH CV 13.5 % 11.5-14.5 N (test code = RDW) RED CELL DISTRIBUTION WIDTH SD 47.4 fL 37.0-54.0 N (test code = RDW-SD) PLATELET COUNT (test code = 166 x10 3/uL 150-400 N PLT) MEAN PLATELET VOLUME (test 10.2 fL 7.0-9.0 H code = MPV) NEUTROPHIL % (test code = NT%) 79.7 % 56.0-77.0 H IMMATURE GRANULOCYTE % (test 0.7 % 0.0-2.0 N code = IG%) LYMPHOCYTE % (test code = LY%) 7.9 % 14.0-32.0 L MONOCYTE % (test code = MO%) 11.6 % 4.8-9.0 H EOSINOPHIL % (test code = EO%) 0.0 % 0.3-3.7 L BASOPHIL % (test code = BA%) 0.1 % 0.0-2.0 N NUCLEATED RBC % (test code = 0.0 % 0-0 N NRBC%) NEUTROPHIL # (test code = NT#) 14.29 x10 3/uL 2.0-7.6 H IMMATURE GRANULOCYTE # (test 0.13 x10 3/uL 0.00-0.03 H code = IG#) LYMPHOCYTE # (test code = LY#) 1.42 x10 3/uL 1.0-3.8 N MONOCYTE # (test code = MO#) 2.09 x10 3/uL 0.1-0.8 H EOSINOPHIL # (test code = EO#) 0.00 x10 3/uL 0.0-0.2 N BASOPHIL # (test code = BA#) 0.02 x10 3/uL 0.0-0.2 N NUCLEATED RBC # (test code = 0.00 x10 3/uL 0.0-0.1 N NRBC#) MANUAL DIFF REQUIRED (test NO code = MDIFF) COMMENTS: Daily while on HeparinPOC ARTERIAL BLOOD [id number] 01:27:00 Test Item Value Reference Range Interpretation Comments POC ARTERIAL BLOOD GAS PH (test 7.382 7.35-7.45 N code = POCPHA) POC ARTERIAL BLOOD GAS PCO2 43.0 mmHg 35.0-45 N (test code = JHKCHK3B) POC TCO2 ARTERIAL (test code = 26.5 POCTCO2) POC ARTERIAL BLOOD GAS PO2 (test 80.7 mmHg 80-100.0 N code = DCDJW0M) POC HCO3 ARTERIAL (test code = 25.2 MMOL/L 22.0-26.0 N URPTOP4Q) POC BASE EXCESS (test code = 0.4 MMOL/L -4.0-4.0 N POCBEA) POC O2 SATURATION (test code = 94.6 % 90-100 N POCO2S) FIO2 (test code = FIO2A) 32 % PaO2/FiO2 (test code = [id number]) 252.18 mm/Hg ABG DELIVERY (test code = REBA) Cannula ABG TEMPERATURE (test code = 101 F TEMPA) ABG SITE (test code = SITEA) Art Line MICHAEL'S TEST (test code = N/A ALLENS) BASIC METABOLIC [id number] 01:27:00 Test Item Value Reference Range Interpretation Comments SODIUM (test code = NA/ABG) 135 mmol/L 134-147 N POTASSIUM (test code = K/ABG) 4.6 mmol/L 3.4-5.0 N CHLORIDE (test code = CL/ABG) 100 mmol/L 100-108 N CREATININE ABG (test code = 1.2 mg/dL 0.8-1.3 N CREAABG) POC IONIZED CALCIUM (test code = 1.09 MMOL/L 1.12-1.32 L POCCA) POC GLUCOSE (test code = POCGLU) 167 MG/DL 70-110 H HEMOGLOBIN [id number] 01:27:00 Test Item Value Reference Range Interpretation Comments HEMOGLOBIN ABG (test code = 13.1 G/DL 12.5-16.9 N HGB/ABG) [id number] 01:27:00 Test Item Value Reference Range Interpretation Comments HEMATOCRIT (test code = HCT/ABG) 39 % 37.5-50.7 N POC LACTIC [id number] 01:27:00 Test Item Value Reference Range Interpretation Comments POC LACTIC ACID (test code = 1.1 mmol/l 0.9-1.7 N POCLAC) - XR CHEST 1 [id number] 00:00:00 [facility] : 1970 Sex: M FAX: Eric Chairez [phone] [place]: St: ADM FAX: Malik Molina MD [phone] -- Name: SHEKHAR LOZADA [facility] : 1970 Age/S: 52/M [address] [place] [address] Unit #: [id number] Loc: [address] [place] [phone] Phys: Malik Thomas MD Acct: [id number] Dis Date: Status: ADM IN PHONE #: Exam Date: 01/04/2023200 FAX #: [phone] Reason: INCREASED SOB/INCREASED RESP. EFFORTCHEST PA EXAMS: CPT CODE: [id number] XR CHEST 1 V 18457 PROCEDURE INFORMATION: Exam: XR Chest Exam date and time: 01/04/2023 1:45 AM Age: 52 years old Clinical indication: Shortness of breath and other: Increased sob/increased resp. Effort chest pain TECHNIQUE: Imaging protocol: Radiologic exam of the chest. Views: 1 view. COMPARISON: CR XR CHEST 1V 01/03/2023 5:22 AM FINDINGS: Tubes, catheters and devices: Right internal jugular dialysis catheter is stable in position. Lungs: Moderately diminished lung volumes with perihilar and medial basilar opacities favored to reflect atelectasis. Pleural spaces: Possible small left pleural effusion. No pneumothorax. Heart/Mediastinum: Heart size is stable. Bones/joints: Median sternotomy. IMPRESSION: Moderately diminished lung volumes with perihilar and medial basilar opacities favored to reflect atelectasis. Superimposed pneumonia or edema not excluded. at 0206 Reported and signed by: Abraham Wallace M.D. CC: Eric Crabtree MD; Malik Thomas MD Technologist: DELIA Trejo) Trnreyes Date/Time/By: 01/04/2023 (205) : By: [email or web address] Orig Print D/T: S: 01/04/2023 (205) PAGE 1 Signed Report- XR CHEST 1 [id number] 00:00:00 [facility] 1970 Sex: M FAX: Eric Chairez [phone] [place]: St: [facility] FAX: Bernie Bingham [phone] --- [facility] 1970 Age/S: 52/M [address] [place] [address] Unit #: [id number] Loc: G.2205 [place] [address] Phys: Caro Damon WAITER/WAITRESS SECOND CLASS Acct: [id number] Dis Date: Status: ADM IN PHONE #: [phone] Exam Date: 01/04/2023 0500 FAX #: [phone] Reason: Cardiac Surgery Post Op EXAMS: CPT CODE: [id number] XR CHEST 1 V 30373 PROCEDURE INFORMATION: Exam: XR Chest Exam date and time: 01/04/2023 4:59 AM Age: 52 years old Clinical indication: Other: Cardiac surgery post op TECHNIQUE: Imaging protocol: Radiologic exam of the chest. Views: 1 view. COMPARISON: CR XR CHEST 1V 01/04/2023 1:45 AMFINDINGS: Tubes, catheters and devices: Stable lines and tubes. Lungs: The bilateral lung opacities are grossly stable. Low lung volumes. Pleural spaces: Question small left pleural effusion. No definite pneumothorax. Heart/Mediastinum: The heart size is stable. Bones/joints: Stable. Median sternotomywires. IMPRESSION: Grossly stable exam. at 0805 Reported and signed by: Hilario Bentley M.D. CC: Eric Crabtree MD; Caro Bingham NP Technologist: Jaky Cade RT(R) Trnscrd Date/Time/By: 01/04/2023 (824) : By: [email or web address] Orig Print D/T: S: 01/04/2023 (2096) PAGE 1 Signed ReportBASIC METABOLIC PANEL 2023-01-03 21:05:00 Test Item Value Reference Range Interpretation Comments SODIUM (test code = 135 mEq/L 134-147 N NA) POTASSIUM (test code 4.6 mEq/L 3.4-5.0 N = K) CHLORIDE (test code 103 mEq/L 100-108 N = CL) CARBON DIOXIDE (test 26 mEq/l 21-33 N code = CO2) ANION GAP (test code 11 0-20 N = GAP) GLUCOSE (test code = 150 mg/dL 70-110 H GLU) BLOOD UREA NITROGEN 21 mg/dL 7-18 H (test code = BUN) GLOMERULAR 72.3 90-95 L The Glomerular FILTRATION RATE Filtration R ate is a (test code = GFR) calculated parameterbased on serum Creatinine, pat ient age and sex. GFR va luesless than 60 mL/min/ 1.73 square meters a re indicative ofCh ronic Kidney Disease. Values less than 15 mL/min/1.73squa re meters indicate Kidney failure. The calculation forGFR is based on the CKD-EPI (2020) calculat ion. This formulais race indifferent and is the recommended for isaías for GFRby the [facility]ney Foundati on for Adults.The GFR will not calculate if th e sex is unknown or if thepatient's ag e is <18 years. CREATININE (test 1.2 mg/dL 0.6-1.3 N code = CREAT) CALCIUM (test code = 7.8 mg/dL 8.0-10.5 L CA) [id number] 21:05:00 Test Item Value Reference Range Interpretation Comments MAGNESIUM (test code = MAG) 2.55 mg/dL 1.80-2.40 H POC ARTERIAL BLOOD [id number] 16:07:00 Test Item Value Reference Range Interpretation Comments POC ARTERIAL BLOOD GAS PH (test 7.337 7.35-7.45 L code = POCPHA) POC ARTERIAL BLOOD GAS PCO2 (test 44.6 mmHg 35.0-45 N code = [id number]) POC TCO2 ARTERIAL (test code = 25.5 POCTCO2) POC ARTERIAL BLOOD GAS PO2 (test 72.4 mmHg 80-100.0 L code = FTXYP3C) POC HCO3 ARTERIAL (test code = 24.1 MMOL/L 22.0-26.0 N [id number]) POC BASE EXCESS (test code = -1.9 MMOL/L -4.0-4.0 N POCBEA) POC O2 SATURATION (test code = 93.6 % 90-100 N POCO2S) ABG DELIVERY (test code = REBA) Cannula ABG TEMPERATURE (test code = 97.8 F TEMPA) ABG SITE (test code = SITEA) Art Line MICHAEL'S TEST (test code = ALLENS) N/A BASIC METABOLIC [id number] 16:07:00 Test Item Value Reference Range Interpretation Comments SODIUM (test code = NA/ABG) 133 mmol/L 134-147 L POTASSIUM (test code = K/ABG) 5.2 mmol/L 3.4-5.0 H CHLORIDE (test code = CL/ABG) 100 mmol/L 100-108 N CREATININE ABG (test code = 1.4 mg/dL 0.8-1.3 H CREAABG) POC IONIZED CALCIUM (test code = 1.09 MMOL/L 1.12-1.32 L POCCA) POC GLUCOSE (test code = POCGLU) 211 MG/DL 70-110 H HEMOGLOBIN [id number] 16:07:00 Test Item Value Reference Range Interpretation Comments HEMOGLOBIN ABG (test code = 12.8 G/DL 12.5-16.9 N HGB/ABG) [id number] 16:07:00 Test Item Value Reference Range Interpretation Comments HEMATOCRIT (test code = HCT/ABG) 38 % 37.5-50.7 N POC LACTIC [id number] 16:07:00 Test Item Value Reference Range Interpretation Comments POC LACTIC ACID (test code = 1.6 mmol/l 0.9-1.7 N POCLAC) BASIC METABOLIC [id number] 13:15:00 Test Item Value Reference Range Interpretation Comments SODIUM (test code = 136 mEq/L 134-147 N NA) POTASSIUM (test code 5.2 mEq/L 3.4-5.0 H = K) CHLORIDE (test code 106 mEq/L 100-108 N = CL) CARBON DIOXIDE (test 23 mEq/l 21-33 N code = CO2) ANION GAP (test code 12 0-20 N = GAP) GLUCOSE (test code = 176 mg/dL 70-110 H GLU) BLOOD UREA NITROGEN 17 mg/dL 7-18 (test code = BUN) GLOMERULAR 55.3 90-95 L The Glomerular FILTRATION RATE Filtration R ate is a (test code = GFR) calculated parameterbased on serum Creatinine, pat ient age and sex. GFR va luesless than 60 mL/min/ 1.73 square meters a re indicative ofCh ronic Kidney Disease. Values less than 15 mL/min/1.73squa re meters indicate Kidney failure. The calculation forGFR is based on the CKD-EPI (2020) calculat ion. This formulais race indifferent and is the recommended for isaías for GFRby the [facility] for Adults.The GFR will not calculate if th e sex is unknown or if thepatient's ag e is <18 years. 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[facility] CBC W/AUTO [id number] 05:09:00 Test Item Value Reference Range Interpretation Comments WHITE BLOOD CELL (test code = 15.2 x10 3/uL 4.5-11.0 H WBC) RED BLOOD CELL (test code = 4.07 x10 6/uL 4.00-5.60 N RBC) HEMOGLOBIN (test code = HGB) 12.9 g/dL 12.5-16.9 N HEMATOCRIT (test code = HCT) 38.7 % 37.5-50.7 N MEAN CELL VOLUME (test code = 95.1 fL 81.0-99.0 N MCV) MEAN CELL HGB (test code = 31.7 pg 27.0-33.0 N MCH) MEAN CELL HGB CONCETRATION 33.3 g/dL 33.0-37.0 N (test code = MCHC) RED CELL DISTRIBUTION WIDTH CV 13.2 % 11.5-14.5 N (test code = RDW) RED CELL DISTRIBUTION WIDTH SD 46.1 fL 37.0-54.0 N (test code = RDW-SD) PLATELET COUNT (test code = 151 x10 3/uL 150-400 N PLT) MEAN PLATELET VOLUME (test 10.2 fL 7.0-9.0 H code = MPV) NEUTROPHIL % (test code = NT%) 88.5 % 56.0-77.0 H IMMATURE GRANULOCYTE % (test 0.7 % 0.0-2.0 N code = IG%) LYMPHOCYTE % (test code = LY%) 5.6 % 14.0-32.0 L MONOCYTE % (test code = MO%) 5.1 % 4.8-9.0 N EOSINOPHIL % (test code = EO%) 0.0 % 0.3-3.7 L BASOPHIL % (test code = BA%) 0.1 % 0.0-2.0 N NUCLEATED RBC % (test code = 0.0 % 0-0 N NRBC%) NEUTROPHIL # (test code = NT#) 13.47 x10 3/uL 2.0-7.6 H IMMATURE GRANULOCYTE # (test 0.11 x10 3/uL 0.00-0.03 H code = IG#) LYMPHOCYTE # (test code = LY#) 0.86 x10 3/uL 1.0-3.8 L MONOCYTE # (test code = MO#) 0.78 x10 3/uL 0.1-0.8 N EOSINOPHIL # (test code = EO#) 0.00 x10 3/uL 0.0-0.2 N BASOPHIL # (test code = BA#) 0.02 x10 3/uL 0.0-0.2 N NUCLEATED RBC # (test code = 0.00 x10 3/uL 0.0-0.1 N NRBC#) MANUAL DIFF REQUIRED (test NO code = MDIFF) COMMENTS: Daily while on HeparinBASIC METABOLIC [id number] 04:45:00 Test Item Value Reference Range Interpretation Comments SODIUM (test code = 138 mEq/L 134-147 N NA) POTASSIUM (test code 5.0 mEq/L 3.4-5.0 N = K) CHLORIDE (test code 106 mEq/L 100-108 N = CL) CARBON DIOXIDE (test 26 mEq/l 21-33 N code = CO2) ANION GAP (test code 11 0-20 N = GAP) GLUCOSE (test code = 146 mg/dL 70-110 H GLU) BLOOD UREA NITROGEN 13 mg/dL 7-18 N (test code = BUN) GLOMERULAR 90.0 90-95 N The Glomerular FILTRATION RATE Filtration R ate is a (test code = GFR) calculated parameterbased on serum Creatinine, pat ient age and sex. GFR va luesless than 60 mL/min/ 1.73 square meters a re indicative ofCh ronic Kidney Disease. Values less than 15 mL/min/1.73squa re meters indicate Kidney failure. The calculation forGFR is based on the CKD-EPI (2020) calculat ion. This formulais race indifferent and is the recommended for isaías for GFRby the [facility] on for Adults.The GFR will not calculate if th e sex is unknown or if thepatient's ag e is <18 years. CREATININE (test 1.0 mg/dL 0.6-1.3 N code = CREAT) CALCIUM (test code = 7.7 mg/dL 8.0-10.5 L CA) COMMENTS: POD #1HEPATIC FUNCTION [id number] 04:45:00 Test Item Value Reference Range Interpretation Comments TOTAL PROTEIN (test code = PROT) 5.5 g/dL 6.4-8.2 L ALBUMIN (test code = ALB) 3.50 g/dL 3.4-5.0 N BILIRUBIN TOTAL (test code = BILT) 0.70 mg/dL 0.0-1.0 BILIRUBIN DIRECT (test code = 0.30 MG/DL 0.0-0.30 N BILD) BILIRUBIN INDIRECT (test code = 0.40 MG/DL BILIND) SGOT/AST (test code = AST) 71 IUnit/L 15-37 H SGPT/ALT (test code = ALT) 66 IUnit/L 30-65 H ALKALINE PHOSPHATASE TOTAL (test 59 IUnit/L 20-125 N code = ALKP) COMMENTS: POD #[id number] 04:45:00 Test Item Value Reference Range Interpretation Comments MAGNESIUM (test code = MAG) 2.33 mg/dL 1.80-2.40 COMMENTS: POD #1POC ARTERIAL BLOOD [id number] 04:12:00 Test Item Value Reference Range Interpretation Comments POC ARTERIAL BLOOD GAS PH (test 7.337 7.35-7.45 L code = POCPHA) POC ARTERIAL BLOOD GAS PCO2 48.2 mmHg 35.0-45 H (test code = BMTUXS2I) POC TCO2 ARTERIAL (test code = 27.1 POCTCO2) POC ARTERIAL BLOOD GAS PO2 (test 80.7 mmHg 80-100.0 N code = WCZZT1A) POC HCO3 ARTERIAL (test code = 25.6 MMOL/L 22.0-26.0 N [id number]) POC BASE EXCESS (test code = 0.0 MMOL/L -4.0-4.0 N POCBEA) POC O2 SATURATION (test code = 94.3 % 90-100 N POCO2S) FIO2 (test code = FIO2A) 36 % PaO2/FiO2 (test code = [id number]) 224.16 mm/Hg ABG DELIVERY (test code = REBA) Cannula ABG TEMPERATURE (test code = 100 F TEMPA) ABG SITE (test code = SITEA) Art Line MICHAEL'S TEST (test code = N/A ALLENS) BASIC METABOLIC [id number] 04:12:00 Test Item Value Reference Range Interpretation Comments SODIUM (test code = NA/ABG) 138 mmol/L 134-147 N POTASSIUM (test code = K/ABG) 5.1 mmol/L 3.4-5.0 H CHLORIDE (test code = CL/ABG) 103 mmol/L 100-108 N CREATININE ABG (test code = 1.1 mg/dL 0.8-1.3 N CREAABG) POC IONIZED CALCIUM (test code = 1.16 MMOL/L 1.12-1.32 N POCCA) POC GLUCOSE (test code = POCGLU) 141 MG/DL 70-110 H HEMOGLOBIN [id number] 04:12:00 Test Item Value Reference Range Interpretation Comments HEMOGLOBIN ABG (test code = 13.4 G/DL 12.5-16.9 N HGB/ABG) [id number] 04:12:00 Test Item Value Reference Range Interpretation Comments HEMATOCRIT (test code = HCT/ABG) 40 % 37.5-50.7 N GLUCOSE [id number] 01:33:00 Test Item Value Reference Range Interpretation Comments GLUCOSE BEDSIDE (test 141 MG/DL 70-110 H Perfor med 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 code = GLUBED) 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[facility] - XR CHEST 1 [id number] 00:00:00 [facility] : 1970 Sex: M FAX: Eric Chairez [phone] [place]: St: ADM FAX: Bernie Bingham [phone] --- Name: NEELA LOZADA : 1970 Age/S: 52/M [address] [place] [address] Blvd Unit #: [id number] Loc: G.2205 [place] [address] Phys: Caro Damon NP Acct: [id number] Dis Date: Status: ADM IN PHONE #: [phone] Exam Date: 01/03/2023724 FAX #: [phone] Reason: Cardiac Surgery Post Op EXAMS: CPT CODE: [id number] XR CHEST 1 V 29645 PROCEDURE INFORMATION: Exam: XR Chest Exam date and time: 01/03/2023 5:22 AM Age: 52 years old Clinical indication: Other: Cardiac surgery post op TECHNIQUE: Imaging protocol: Radiologic exam of the chest. Views: 1 view. COMPARISON: CR XR CHEST 1V 01/02/2023 7:26 PM FINDINGS: Tubes, catheters and devices: Removal of the ET tube. Stable right IJ central line. Stable left chest tube. Lungs: Bilateral lung opacities have improved. Pleural spaces: Question small leftpleural effusion. No definite pneumothorax. Heart/Mediastinum: The enlarged heart size is stable. Vasculature: Atherosclerotic calcifications. Bones/joints: Stable. Median sternotomy wires. IMPRESSION:1. Improved lung opacities. 2. Removal of the ET tube. Electronically Signed by Evangelina Joseph 01/03/2023 at 0802 Reported and signed by: Hilario Bentley M.D. 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[facility] POC ARTERIAL BLOOD [id number] 21:11:00 Test Item Value Reference Range Interpretation Comments POC ARTERIAL BLOOD GAS PH (test 7.314 7.35-7.45 L code = POCPHA) POC ARTERIAL BLOOD GAS PCO2 47.1 mmHg 35.0-45 H (test code = WXDZUC0N) POC TCO2 ARTERIAL (test code = 25.3 POCTCO2) POC ARTERIAL BLOOD GAS PO2 (test 93.3 mmHg 80-100.0 N code = JYCJS7S) POC HCO3 ARTERIAL (test code = 23.9 MMOL/L 22.0-26.0 N HLJBSA0T) POC BASE EXCESS (test code = -2.2 MMOL/L -4.0-4.0 N POCBEA) POC O2 SATURATION (test code = 96.3 % 90-100 N POCO2S) FIO2 (test code = FIO2A) 40 % PaO2/FiO2 (test code = UAY8IKC1) 233.25 mm/Hg ABG DELIVERY (test code = REBA) BiPAP ABG VENT RESP RATE (test code = 17 /MIN RRA) ABG PEEP (test code = PEEPA) 5 cmH2O ABG TEMPERATURE (test code = 99.1 F TEMPA) ABG SITE (test code = SITEA) Art Line MICHAEL'S TEST (test code = N/A ALLENS) BASIC METABOLIC [id number] 21:11:00 Test Item Value Reference Range Interpretation Comments SODIUM (test code = NA/ABG) 139 mmol/L 134-147 N POTASSIUM (test code = K/ABG) 4.6 mmol/L 3.4-5.0 N CHLORIDE (test code = CL/ABG) 106 mmol/L 100-108 N CREATININE ABG (test code = 1.0 mg/dL 0.8-1.3 CREAABG) POC IONIZED CALCIUM (test code = 1.21 MMOL/L 1.12-1.32 N POCCA) POC GLUCOSE (test code = POCGLU) 158 MG/DL 70-110 H HEMOGLOBIN [id number] 21:11:00 Test Item Value Reference Range Interpretation Comments HEMOGLOBIN ABG (test code = 13.4 G/DL 12.5-16.9 N HGB/ABG) [id number] 21:11:00 Test Item Value Reference Range Interpretation Comments HEMATOCRIT (test code = HCT/ABG) 39 % 37.5-50.7 N PROTHROMBIN [id number] 20:18:00 Test Item Value Reference Range Interpretation Comments PROTHROMBIN TIME 13.1 SECONDS 9.3-12.9 H PATIENT (test code = PTP) INTERNATIONAL NORMAL 1.2 0.8-1.2 N TARGET INR BY RATIO (test code = INDICATIO N Indication INR) INR1. Prophylax is of venous thrombos is 2.0 - 3.0 (orthoped ic surgery), Proph ylaxis of venous throm bosis (other than hig h-risk surgery), Treat ment of Deep Vein Thrombosis/Pulm onary Embolism, Preve ntion of systemic emb olism - Tissue heart va lves, Acute Myocardia l Infarction (to prevent systemic emboli sm), Valvular heart disease, Atrial Fibrillation, Bileaflet mecha nical valve in aortic position.2. Mec hanical prosthetic valv es (high risk), 2. 5 - 3.5 Presence of Lup us Anticoagulant o r Antiphospholipi d Antibodies, Pre vention of systemic emb olism - Acute Myocardia l Infarction (to prevent recurrent infar ct). COMMENTS: On arrivalTHROMBOPLASTIN TIME [id number] 20:18:00 Test Item Value Reference Range Interpretation Comments THROMBOPLASTIN TIME 28.0 Seconds 25.0-39.5 Therape utic Range: PARTIAL (test code = 50.4 - 88.3 Seconds PTT) Effective 01/29/2019 COMMENTS: On arrivalPOC ARTERIAL BLOOD [id number] 20:13:00 Test Item Value Reference Range Interpretation Comments POC ARTERIAL BLOOD GAS PH (test 7.290 7.35-7.45 LL code = POCPHA) POC ARTERIAL BLOOD GAS PCO2 48.3 mmHg 35.0-45 H (test code = OQCDDH1L) POC TCO2 ARTERIAL (test code = 24.7 POCTCO2) POC ARTERIAL BLOOD GAS PO2 (test 78.8 mmHg 80-100.0 L code = TKAOQ5G) POC HCO3 ARTERIAL (test code = 23.2 MMOL/L 22.0-26.0 N [id number]) POC BASE EXCESS (test code = -3.4 MMOL/L -4.0-4.0 N POCBEA) POC O2 SATURATION (test code = 93.8 % 90-100 N POCO2S) FIO2 (test code = FIO2A) 40 % PaO2/FiO2 (test code = [id number]) 197.00 mm/Hg ABG DELIVERY (test code = REBA) Adult Vent ABG PEEP (test code = PEEPA) 5 cmH2O ABG PRESSURE SUPPORT (test code 10 cmH2O = PSABG) ABG TEMPERATURE (test code = 98.6 F TEMPA) ABG SITE (test code = SITEA) Art Line MICHAEL'S TEST (test code = N/A ALLENS) BASIC METABOLIC [id number] 20:13:00 Test Item Value Reference Range Interpretation Comments SODIUM (test code = NA/ABG) 140 mmol/L 134-147 N POTASSIUM (test code = K/ABG) 4.5 mmol/L 3.4-5.0 N CHLORIDE (test code = CL/ABG) 105 mmol/L 100-108 N CREATININE ABG (test code = 0.8 mg/dL 0.8-1.3 CREAABG) POC IONIZED CALCIUM (test code = 1.30 MMOL/L 1.12-1.32 N POCCA) POC GLUCOSE (test code = POCGLU) 163 MG/DL 70-110 H HEMOGLOBIN [id number] 20:13:00 Test Item Value Reference Range Interpretation Comments HEMOGLOBIN ABG (test code = 14.4 G/DL 12.5-16.9 N HGB/ABG) [id number] 20:13:00 Test Item Value Reference Range Interpretation Comments HEMATOCRIT (test code = HCT/ABG) 42 % 37.5-50.7 N POC LACTIC [id number] 20:13:00 Test Item Value Reference Range Interpretation Comments POC LACTIC ACID (test code = 1.6 mmol/l 0.9-1.7 N POCLAC) CBC W/AUTO [id number] 20:00:00 Test Item Value Reference Range Interpretation Comments WHITE BLOOD CELL 25.8 x10 3/uL 4.5-11.0 H (test code = WBC) RED BLOOD CELL (test 4.13 x10 6/uL 4.00-5.60 N code = RBC) HEMOGLOBIN (test code 13.1 g/dL 12.5-16.9 N = HGB) HEMATOCRIT (test code 38.6 % 37.5-50.7 N = HCT) MEAN CELL VOLUME 93.5 fL 81.0-99.0 N (test code = MCV) MEAN CELL HGB (test 31.7 pg 27.0-33.0 N code = MCH) MEAN CELL HGB 33.9 g/dL 33.0-37.0 N CONCETRATION (test code = MCHC) RED CELL DISTRIBUTION 13.2 % 11.5-14.5 N WIDTH CV (test code = RDW) RED CELL DISTRIBUTION 44.8 fL 37.0-54.0 N WIDTH SD (test code = RDW-SD) PLATELET COUNT (test 212 x10 3/uL 150-400 N code = PLT) MEAN PLATELET VOLUME 10.1 fL 7.0-9.0 H (test code = MPV) NEUTROPHIL % (test 79.6 % 56.0-77.0 H code = NT%) LYMPHOCYTE % (test 10.2 % 14.0-32.0 L code = LY%) NEUTROPHIL # (test 20.54 x10 3/uL 2.0-7.6 H code = NT#) LYMPHOCYTE # (test 2.62 x10 3/uL 1.0-3.8 N code = LY#) MANUAL DIFF REQUIRED NO SLIDE R EVIEWED, (test code = MDIFF) CONSISTE NT WITH AUTO DIFF. IMMATURE GRANULOCYTE 2.8 % 0.0-2.0 H % (test code = IG%) MONOCYTE % (test code 6.3 % 4.8-9.0 N = MO%) EOSINOPHIL % (test 0.8 % 0.3-3.7 N code = EO%) BASOPHIL % (test code 0.3 % 0.0-2.0 N = BA%) NUCLEATED RBC % (test 0.0 % 0-0 N code = NRBC%) IMMATURE GRANULOCYTE 0.73 x10 3/uL 0.00-0.03 H # (test code = IG#) MONOCYTE # (test code 1.62 x10 3/uL 0.1-0.8 H = MO#) EOSINOPHIL # (test 0.21 x10 3/uL 0.0-0.2 H code = EO#) BASOPHIL # (test code 0.09 x10 3/uL 0.0-0.2 N = BA#) NUCLEATED RBC # (test 0.00 x10 3/uL 0.0-0.1 N code = NRBC#) COMMENTS: On arrivalBASIC METABOLIC [id number] 19:52:00 Test Item Value Reference Range Interpretation Comments SODIUM (test code = 138 mEq/L 134-147 N NA) POTASSIUM (test code 4.8 mEq/L 3.4-5.0 N = K) CHLORIDE (test code 108 mEq/L 100-108 N = CL) CARBON DIOXIDE (test 24 mEq/l 21-33 N code = CO2) ANION GAP (test code 11 0-20 N = GAP) GLUCOSE (test code = 164 mg/dL 70-110 H GLU) BLOOD UREA NITROGEN 12 mg/dL 7-18 (test code = BUN) GLOMERULAR 90.0 90-95 N The Glomerular FILTRATION RATE Filtration R ate is a (test code = GFR) calculated parameterbased on serum Creatinine, pat ient age and sex. GFR va luesless than 60 mL/min/ 1.73 square meters a re indicative ofCh ronic Kidney Disease. Values less than 15 mL/min/1.73squa re meters indicate Kidney failure. The calculation forGFR is based on the CKD-EPI (2020) calculat ion. This formulais race indifferent and is the recommended for isaías for GFRby the [facility] Kidney Foundati on for Adults.The GFR will not calculate if th e sex is unknown or if thepatient's ag e is <18 years. CREATININE (test 1.0 mg/dL 0.6-1.3 N code = CREAT) CALCIUM (test code = 8.4 mg/dL 8.0-10.5 N CA) COMMENTS: On [id number] 19:52:00 Test Item Value Reference Range Interpretation Comments MAGNESIUM (test code = MAG) 2.90 mg/dL 1.80-2.40 H COMMENTS: On arrivalPOC ARTERIAL BLOOD [id number] 19:36:00 Test Item Value Reference Range Interpretation Comments POC ARTERIAL BLOOD GAS PH (test 7.336 7.35-7.45 L code = POCPHA) POC ARTERIAL BLOOD GAS PCO2 46.7 mmHg 35.0-45 H (test code = [id number]) POC TCO2 ARTERIAL (test code = 26.4 POCTCO2) POC ARTERIAL BLOOD GAS PO2 (test 71.2 mmHg 80-100.0 L code = FUHLH2E) POC HCO3 ARTERIAL (test code = 25.0 MMOL/L 22.0-26.0 N [id number]) POC BASE EXCESS (test code = -0.9 MMOL/L -4.0-4.0 N POCBEA) POC O2 SATURATION (test code = 92.9 % 90-100 N POCO2S) FIO2 (test code = FIO2A) 50 % PaO2/FiO2 (test code = [id number]) 142.40 mm/Hg ABG DELIVERY (test code = REBA) Adult Vent ABG VENT MODE (test code = AC MODEA) ABG TIDAL VOLUME (test code = 600 ml TVA) ABG PEEP (test code = PEEPA) 5 cmH2O ABG TEMPERATURE (test code = 98.4 F TEMPA) ABG SITE (test code = SITEA) Art Line BASIC METABOLIC [id number] 19:36:00 Test Item Value Reference Range Interpretation Comments SODIUM (test code = NA/ABG) 138 mmol/L 134-147 N POTASSIUM (test code = K/ABG) 4.6 mmol/L 3.4-5.0 N CHLORIDE (test code = CL/ABG) 104 mmol/L 100-108 N CREATININE ABG (test code = 1.1 mg/dL 0.8-1.3 N CREAABG) POC IONIZED CALCIUM (test code = 1.29 MMOL/L 1.12-1.32 N POCCA) POC GLUCOSE (test code = POCGLU) 152 MG/DL 70-110 H HEMOGLOBIN [id number] 19:36:00 Test Item Value Reference Range Interpretation Comments HEMOGLOBIN ABG (test code = 13.2 G/DL 12.5-16.9 N HGB/ABG) [id number] 19:36:00 Test Item Value Reference Range Interpretation Comments HEMATOCRIT (test code = HCT/ABG) 39 % 37.5-50.7 N POC LACTIC [id number] 19:36:00 Test Item Value Reference Range Interpretation Comments POC LACTIC ACID (test code = 2.1 mmol/l 0.9-1.7 H POCLAC) [id number] 19:05:00 Test Item Value Reference Range Interpretation Comments EVA-ISDANAT (test code 113 SEC 74-137 N 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[facility] POC ARTERIAL BLOOD [id number] 18:58:00 Test Item Value Reference Range Interpretation Comments POC ARTERIAL BLOOD GAS PH (test 7.358 7.35-7.45 N code = POCPHA) POC ARTERIAL BLOOD GAS PCO2 (test 41.1 mmHg 35.0-45 N code = [id number]) POC TCO2 ARTERIAL (test code = 24.4 POCTCO2) POC ARTERIAL BLOOD GAS PO2 (test 86.6 mmHg 80-100.0 N code = [id number]) POC HCO3 ARTERIAL (test code = 23.1 MMOL/L 22.0-26.0 N [id number]) POC BASE EXCESS (test code = -2.3 MMOL/L -4.0-4.0 N POCBEA) POC O2 SATURATION (test code = 96.2 % 90-100 N POCO2S) BASIC METABOLIC [id number] 18:58:00 Test Item Value Reference Range Interpretation Comments SODIUM (test code = NA/ABG) 138 mmol/L 134-147 N POTASSIUM (test code = K/ABG) 4.2 mmol/L 3.4-5.0 N CHLORIDE (test code = CL/ABG) 106 mmol/L 100-108 N CREATININE ABG (test code = 1.0 mg/dL 0.8-1.3 N CREAABG) POC IONIZED CALCIUM (test code = 1.28 MMOL/L 1.12-1.32 N POCCA) POC GLUCOSE (test code = POCGLU) 167 MG/DL 70-110 H HEMOGLOBIN [id number] 18:58:00 Test Item Value Reference Range Interpretation Comments HEMOGLOBIN ABG (test code = 12.1 G/DL 12.5-16.9 L HGB/ABG) [id number] 18:58:00 Test Item Value Reference Range Interpretation Comments HEMATOCRIT (test code = HCT/ABG) 35 % 37.5-50.7 L POC LACTIC [id number] 18:58:00 Test Item Value Reference Range Interpretation Comments POC LACTIC ACID (test code = 2.1 mmol/l 0.9-1.7 H POCLAC) [id number] 17:53:00 Test Item Value Reference Range Interpretation Comments ACT-ISTAT (test code 474 SEC 74-137 H 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[facility] POC ARTERIAL BLOOD [id number] 17:45:00 Test Item Value Reference Range Interpretation Comments POC ARTERIAL BLOOD GAS PH (test 7.389 7.35-7.45 N code = POCPHA) POC ARTERIAL BLOOD GAS PCO2 (test 42.8 mmHg 35.0-45 N code = [id number]) POC TCO2 ARTERIAL (test code = 27.1 POCTCO2) POC ARTERIAL BLOOD GAS PO2 (test 169.3 mmHg 80-100.0 H code = HKAIG3E) POC HCO3 ARTERIAL (test code = 25.8 MMOL/L 22.0-26.0 N [id number]) POC BASE EXCESS (test code = 0.6 MMOL/L -4.0-4.0 N POCBEA) POC O2 SATURATION (test code = 99.5 % 90-100 N POCO2S) BASIC METABOLIC [id number] 17:45:00 Test Item Value Reference Range Interpretation Comments SODIUM (test code = NA/ABG) 136 mmol/L 134-147 N POTASSIUM (test code = K/ABG) 5.6 mmol/L 3.4-5.0 H CHLORIDE (test code = CL/ABG) 102 mmol/L 100-108 N CREATININE ABG (test code = 1.1 mg/dL 0.8-1.3 N CREAABG) POC IONIZED CALCIUM (test code = 1.03 MMOL/L 1.12-1.32 L POCCA) POC GLUCOSE (test code = POCGLU) 171 MG/DL 70-110 H HEMOGLOBIN [id number] 17:45:00 Test Item Value Reference Range Interpretation Comments HEMOGLOBIN ABG (test code = 11.7 G/DL 12.5-16.9 L HGB/ABG) [id number] 17:45:00 Test Item Value Reference Range Interpretation Comments HEMATOCRIT (test code = HCT/ABG) 34 % 37.5-50.7 L POC LACTIC [id number] 17:45:00 Test Item Value Reference Range Interpretation Comments POC LACTIC ACID (test code = 1.7 mmol/l 0.9-1.7 N POCLAC) [id number] 17:29:00 Test Item Value Reference Range Interpretation Comments ACT-ISTAT (test code 540 SEC 74-137 H 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[facility] POC ARTERIAL BLOOD [id number] 17:17:00 Test Item Value Reference Range Interpretation Comments POC ARTERIAL BLOOD GAS PH (test 7.386 7.35-7.45 N code = POCPHA) POC ARTERIAL BLOOD GAS PCO2 (test 42.4 mmHg 35.0-45 N code = [id number]) POC TCO2 ARTERIAL (test code = 26.7 POCTCO2) POC ARTERIAL BLOOD GAS PO2 (test 235.2 mmHg 80-100.0 HH code = JKYRA2R) POC HCO3 ARTERIAL (test code = 25.4 MMOL/L 22.0-26.0 N [id number]) POC BASE EXCESS (test code = 0.3 MMOL/L -4.0-4.0 N POCBEA) POC O2 SATURATION (test code = 99.8 % 90-100 N POCO2S) BASIC METABOLIC [id number] 17:17:00 Test Item Value Reference Range Interpretation Comments SODIUM (test code = NA/ABG) 136 mmol/L 134-147 N POTASSIUM (test code = K/ABG) 5.8 mmol/L 3.4-5.0 H CHLORIDE (test code = CL/ABG) 102 mmol/L 100-108 N CREATININE ABG (test code = 1.0 mg/dL 0.8-1.3 N CREAABG) POC IONIZED CALCIUM (test code = 1.01 MMOL/L 1.12-1.32 L POCCA) POC GLUCOSE (test code = POCGLU) 179 MG/DL 70-110 H HEMOGLOBIN [id number] 17:17:00 Test Item Value Reference Range Interpretation Comments HEMOGLOBIN ABG (test code = 11.4 G/DL 12.5-16.9 L HGB/ABG) [id number] 17:17:00 Test Item Value Reference Range Interpretation Comments HEMATOCRIT (test code = HCT/ABG) 34 % 37.5-50.7 L POC LACTIC [id number] 17:17:00 Test Item Value Reference Range Interpretation Comments POC LACTIC ACID (test code = 1.5 mmol/l 0.9-1.7 N POCLAC) [id number] 17:00:00 Test Item Value Reference Range Interpretation Comments ACT-ISTAT (test code 642 SEC 74-137 H 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[facility] POC ARTERIAL BLOOD [id number] 16:46:00 Test Item Value Reference Range Interpretation Comments POC ARTERIAL BLOOD GAS PH (test 7.342 7.35-7.45 L code = POCPHA) POC ARTERIAL BLOOD GAS PCO2 (test 47.9 mmHg 35.0-45 H code = [id number]) POC TCO2 ARTERIAL (test code = 27.4 POCTCO2) POC ARTERIAL BLOOD GAS PO2 (test 371.5 mmHg 80-100.0 HH code = KIPOB8O) POC HCO3 ARTERIAL (test code = 25.9 MMOL/L 22.0-26.0 N [id number]) POC BASE EXCESS (test code = -0.2 MMOL/L -4.0-4.0 N POCBEA) POC O2 SATURATION (test code = 99.9 % 90-100 N POCO2S) BASIC METABOLIC [id number] 16:46:00 Test Item Value Reference Range Interpretation Comments SODIUM (test code = NA/ABG) 137 mmol/L 134-147 N POTASSIUM (test code = K/ABG) 5.5 mmol/L 3.4-5.0 H CHLORIDE (test code = CL/ABG) 100 mmol/L 100-108 N CREATININE ABG (test code = 0.9 mg/dL 0.8-1.3 N CREAABG) POC IONIZED CALCIUM (test code = 0.99 MMOL/L 1.12-1.32 L POCCA) POC GLUCOSE (test code = POCGLU) 188 MG/DL 70-110 H HEMOGLOBIN [id number] 16:46:00 Test Item Value Reference Range Interpretation Comments HEMOGLOBIN ABG (test code = 11.4 G/DL 12.5-16.9 L HGB/ABG) [id number] 16:46:00 Test Item Value Reference Range Interpretation Comments HEMATOCRIT (test code = HCT/ABG) 34 % 37.5-50.7 L POC LACTIC [id number] 16:46:00 Test Item Value Reference Range Interpretation Comments POC LACTIC ACID (test code = 0.7 mmol/l 0.9-1.7 L POCLAC) [id number] 16:32:00 Test Item Value Reference Range Interpretation Comments ACT-ISTAT (test code 600 SEC 74-137 H 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[facility] POC ARTERIAL BLOOD [id number] 16:21:00 Test Item Value Reference Range Interpretation Comments POC ARTERIAL BLOOD GAS PH (test 7.394 7.35-7.45 N code = POCPHA) POC ARTERIAL BLOOD GAS PCO2 (test 40.2 mmHg 35.0-45 N code = AYYXXL9P) POC TCO2 ARTERIAL (test code = 25.8 POCTCO2) POC ARTERIAL BLOOD GAS PO2 (test 181.9 mmHg 80-100.0 H code = HBGZP0S) POC HCO3 ARTERIAL (test code = 24.5 MMOL/L 22.0-26.0 N [id number]) POC BASE EXCESS (test code = -0.4 MMOL/L -4.0-4.0 N POCBEA) POC O2 SATURATION (test code = 99.6 % 90-100 N POCO2S) BASIC METABOLIC [id number] 16:21:00 Test Item Value Reference Range Interpretation Comments SODIUM (test code = NA/ABG) 138 mmol/L 134-147 N POTASSIUM (test code = K/ABG) 5.1 mmol/L 3.4-5.0 H CHLORIDE (test code = CL/ABG) 105 mmol/L 100-108 N CREATININE ABG (test code = 0.9 mg/dL 0.8-1.3 N CREAABG) POC IONIZED CALCIUM (test code = 1.00 MMOL/L 1.12-1.32 L POCCA) POC GLUCOSE (test code = POCGLU) 201 MG/DL 70-110 H HEMOGLOBIN [id number] 16:21:00 Test Item Value Reference Range Interpretation Comments HEMOGLOBIN ABG (test code = 14.3 G/DL 12.5-16.9 N HGB/ABG) [id number] 16:21:00 Test Item Value Reference Range Interpretation Comments HEMATOCRIT (test code = HCT/ABG) 42 % 37.5-50.7 N POC LACTIC [id number] 16:21:00 Test Item Value Reference Range Interpretation Comments POC LACTIC ACID (test code = 0.8 mmol/l 0.9-1.7 L POCLAC) [id number] 15:35:00 Test Item Value Reference Range Interpretation Comments ACT-ISTAT (test code 137 SEC 74-137 N 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[facility] POC ARTERIAL BLOOD [id number] 15:32:00 Test Item Value Reference Range Interpretation Comments POC ARTERIAL BLOOD GAS PH (test 7.433 7.35-7.45 N code = POCPHA) POC ARTERIAL BLOOD GAS PCO2 (test 36.6 mmHg 35.0-45 N code = QHFHML3A) POC TCO2 ARTERIAL (test code = 25.6 POCTCO2) POC ARTERIAL BLOOD GAS PO2 (test 532.6 mmHg 80-100.0 HH code = ZXNYY7I) POC HCO3 ARTERIAL (test code = 24.4 MMOL/L 22.0-26.0 N [id number]) POC BASE EXCESS (test code = 0.5 MMOL/L -4.0-4.0 N POCBEA) POC O2 SATURATION (test code = 100.0 % 90-100 N POCO2S) BASIC METABOLIC [id number] 15:32:00 Test Item Value Reference Range Interpretation Comments SODIUM (test code = NA/ABG) 139 mmol/L 134-147 N POTASSIUM (test code = K/ABG) 4.7 mmol/L 3.4-5.0 N CHLORIDE (test code = CL/ABG) 104 mmol/L 100-108 N CREATININE ABG (test code = 0.8 mg/dL 0.8-1.3 N CREAABG) POC IONIZED CALCIUM (test code = 1.03 MMOL/L 1.12-1.32 L POCCA) POC GLUCOSE (test code = POCGLU) 137 MG/DL 70-110 H HEMOGLOBIN [id number] 15:32:00 Test Item Value Reference Range Interpretation Comments HEMOGLOBIN ABG (test code = 15.1 G/DL 12.5-16.9 N HGB/ABG) [id number] 15:32:00 Test Item Value Reference Range Interpretation Comments HEMATOCRIT (test code = HCT/ABG) 44 % 37.5-50.7 N POC LACTIC [id number] 15:32:00 Test Item Value Reference Range Interpretation Comments POC LACTIC ACID (test code = 0.8 mmol/l 0.9-1.7 L POCLAC) THROMBOPLASTIN TIME [id number] 04:40:00 Test Item Value Reference Range Interpretation Comments THROMBOPLASTIN TIME 62.5 Seconds 25.0-39.5 H Therape utic Range: PARTIAL (test code = 50.4 - 88.3 Seconds PTT) Effective 01/29/2019 BASIC METABOLIC [id number] 04:35:00 Test Item Value Reference Range Interpretation Comments SODIUM (test code = 140 mEq/L 134-147 N NA) POTASSIUM (test code 4.1 mEq/L 3.4-5.0 N = K) CHLORIDE (test code 107 mEq/L 100-108 N = CL) CARBON DIOXIDE (test 27 mEq/l 21-33 N code = CO2) ANION GAP (test code 10 0-20 N = GAP) GLUCOSE (test code = 146 mg/dL 70-110 H GLU) BLOOD UREA NITROGEN 9 mg/dL 7-18 N (test code = BUN) GLOMERULAR 105.8 90-95 H The Glomerular FILTRATION RATE Filtration R ate is a (test code = GFR) calculated parameterbased on serum Creatinine, pat ient age and sex. GFR va luesless than 60 mL/min/ 1.73 square meters a re indicative ofCh ronic Kidney Disease. Values less than 15 mL/min/1.73squa re meters indicate Kidney failure. The calculation forGFR is based on the CKD-EPI (2020) calculat ion. This formulais race indifferent and is the recommended for isaías for GFRby the [facility] Kidney Foundati on for Adults.The GFR will not calculate if th e sex is unknown or if thepatient's ag e is <18 years. CREATININE (test 0.8 mg/dL 0.6-1.3 N code = CREAT) CALCIUM (test code = 8.6 mg/dL 8.0-10.5 N CA) [id number] 04:35:00 Test Item Value Reference Range Interpretation Comments MAGNESIUM (test code = MAG) 2.16 mg/dL 1.80-2.40 N CBC W/AUTO [id number] 04:18:00 Test Item Value Reference Range Interpretation Comments WHITE BLOOD CELL (test code = 6.9 x10 3/uL 4.5-11.0 N WBC) RED BLOOD CELL (test code = 4.72 x10 6/uL 4.00-5.60 N RBC) HEMOGLOBIN (test code = HGB) 15.0 g/dL 12.5-16.9 N HEMATOCRIT (test code = HCT) 43.5 % 37.5-50.7 N MEAN CELL VOLUME (test code = 92.2 fL 81.0-99.0 N MCV) MEAN CELL HGB (test code = MCH) 31.8 pg 27.0-33.0 N MEAN CELL HGB CONCETRATION 34.5 g/dL 33.0-37.0 N (test code = MCHC) RED CELL DISTRIBUTION WIDTH CV 13.1 % 11.5-14.5 N (test code = RDW) RED CELL DISTRIBUTION WIDTH SD 44.6 fL 37.0-54.0 N (test code = RDW-SD) PLATELET COUNT (test code = 166 x10 3/uL 150-400 N PLT) MEAN PLATELET VOLUME (test code 9.8 fL 7.0-9.0 H = MPV) NEUTROPHIL % (test code = NT%) 57.9 % 56.0-77.0 N IMMATURE GRANULOCYTE % (test 0.7 % 0.0-2.0 N code = IG%) LYMPHOCYTE % (test code = LY%) 27.2 % 14.0-32.0 N MONOCYTE % (test code = MO%) 9.7 % 4.8-9.0 H EOSINOPHIL % (test code = EO%) 3.9 % 0.3-3.7 H BASOPHIL % (test code = BA%) 0.6 % 0.0-2.0 N NUCLEATED RBC % (test code = 0.0 % 0-0 N NRBC%) NEUTROPHIL # (test code = NT#) 4.02 x10 3/uL 2.0-7.6 N IMMATURE GRANULOCYTE # (test 0.05 x10 3/uL 0.00-0.03 H code = IG#) LYMPHOCYTE # (test code = LY#) 1.89 x10 3/uL 1.0-3.8 N MONOCYTE # (test code = MO#) 0.67 x10 3/uL 0.1-0.8 N EOSINOPHIL # (test code = EO#) 0.27 x10 3/uL 0.0-0.2 H BASOPHIL # (test code = BA#) 0.04 x10 3/uL 0.0-0.2 N NUCLEATED RBC # (test code = 0.00 x10 3/uL 0.0-0.1 N NRBC#) MANUAL DIFF REQUIRED (test code NO = MDIFF) COMMENTS: Daily while on Heparin- XR CHEST 1 [id number] 00:00:00 [facility] 1970 Sex: M FAX: Eric Chairez [phone] [place]: St: [facility] FAX: Bernie Bingham [phone] --- Name: SHEKHAR LOZADA [facility] : 1970 Age/S: 52/M [address] [place] [address] Bl Unit #: [id number] Loc: [place] [place] [address] Phys: Caro Damon WAITER/WAITRESS SECOND CLASS Acct: [id number] Dis Date: Status: ADM IN PHONE #: [phone] Exam Date: 01/02/20231927 FAX #: [phone] Reason: Cardiac Surgery Post Op EXAMS: CPT CODE: [id number] XR CHEST 1 V [id number] PROCEDURE INFORMATION: Exam: XR Chest Exam date and time: 01/02/2023 7:26 PM Age: 52 years old Clinical indication: Other: Cardiac surgery post op TECHNIQUE: Imaging protocol: Radiologic exam of the chest. Views: 1 view. COMPARISON: DX XR CHEST 2 V 12/30/2022 9:27 AM FINDINGS: Tubes, catheters and devices: Endotracheal tube terminates 4 cm above the grazyna. Right IJ central line terminates in the SVC. Left chest tube is noted. Lungs: Bilateral interstitial opacities. Left basilar airspace opacities. Pleural spaces: Question small left pleural effusion. Heart/Mediastinum: The heart is enlarged, but stable. Bones/joints: Median sternotomy wires. IMPRESSION: 1. Satisfactory position of lines and tubes. 2. Cardiomegaly with mild edema. Left basilar opacities, possibly atelectasis. Question small left pleural effusion. at 2023 Reported and signed by: Hilario Bentley M.D. CC: Eric Crabtree MD; Caro Bingham NP Technologist: Marcio Kwan Trnscrd Date/Time/By: 01/02/2023 (2023) : By: [email or web address] Orig Print D/T: S: 01/02/2023 (2023) PAGE 1 Signed Report- DUP UE ART [id number] 00:00:00 [facility] : 1970 Sex: M Name: SHEKHAR LOZADA [facility] Amarilis Nicolas : 1970 Age/S: 52 / M [address] [place] [address] Blvd Unit #:[id number] Loc: [place] Post [address] 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 SECOND CLASS Acct: [id number] Dis Date: Status: ADM IN PHONE #: [phone] Exam Date: 01/02/2023 1330 FAX #: [phone] Reason: PRE CABG EVALEXAMS: CPT CODE: [id number] DUP UE ART UNI/LTD [id number] PROCEDURE INFORMATION: Exam: US Duplex Left Upper Extremity Arteries Exam date and time: 01/02/2023 10:21 AM Age: 52 years old Clinical indication: Screening exam; Additional info: Pre cabg eval TECHNIQUE: Imaging protocol: Left Real-time ultrasoundscan of the arteries of the left upper extremity with 2-D terry scale, color Doppler flow and spectral waveform analysis. COMPARISON: US DUP EXTRACRANIAL ALEXY 12/30/2022 9:54 AM FINDINGS: Duplex sonographic evaluation of the hand arterial circulation was performed beginning at the antecubital fossa. Imchael test was performed to assess for the presence or absence of dual collateral arterial circulation toeach hand by Doppler. LEFT SIDE: - Radial artery diameters (antecubital/forearm/wrist): 4/2/3 mm - Radial artery peak systolic velocity at wrist: 33 cm/sec - Ulnar artery diameters (antecubital/forearm/wrist): 4/3/3 mm - Ulnar artery peak systolic velocity at wrist: 55 cm/sec - Radial artery calcification(Y/N)?: No - Radial artery flow reversal upon compression (Y/N)?: No - Antegrade digit flow afterradial artery compression (Y/N)?: No antegrade flow to right thumb with radial artery compression. Antegrade arterial flow to remaining digits. IMPRESSION: 1. Insufficient ulnar collateral circulation to the left hand (thumb) after radial artery compression. 2. No soft tissue edema or fluid collection. at 1603 Reported and signed by: Kentrell Jaime M.D. CC: Eric Crabtree MD; Caro Bingham NP Technologist: Lynn Mir RDMS(OB)(BR) Trnvtb Date/Time: 01/02/2023 (1603) [id number] Orig Print D/T: S: 01/02/2023 (4051) Probe: PAGE 1 Signed ReportCOVID 19 Asymptomatic IH AG 2023-01-01 15:34:00 Test Item Value Reference Range Interpretation Comments COVID 19 Asymptomatic Negative Negative A nega tive result is IH AG (test code = presumpti ve and should COVNONPUIAG) be confirmedwit h an FDA authorized mole cular assay, if neces ольга forpatient emilie gement.A positive result does not rule out co-inf ections withother patho gens.This test detects ramon th viable (live) and non-viable,SARS -CoV, and SARS-CoV-2. Cortney t performance dep ends on theamount of vi shirley (antigen) in th e sample.This cortney t has not been FDA cleare d or approved; the t est hasbeen authori zed by FDA under an Em ergency Use Authorizati on(EUA) for use by labo ratories certified under the CLIA thatmeet the requirements to perform moderate, high or waivedcomplexit y tests. COMPREHENSIVE METABOLIC [id number] 14:19:00 Test Item Value Reference Range Interpretation Comments SODIUM (test code = 137 mEq/L 134-147 N NA) POTASSIUM (test code 4.1 mEq/L 3.4-5.0 N = K) CHLORIDE (test code 103 mEq/L 100-108 N = CL) CARBON DIOXIDE (test 26 mEq/l 21-33 N code = CO2) ANION GAP (test code 12 0-20 N = GAP) GLUCOSE (test code = 243 mg/dL 70-110 H GLU) BLOOD UREA NITROGEN 10 mg/dL 7-18 N (test code = BUN) GLOMERULAR 105.8 90-95 H The Glomerular FILTRATION RATE Filtration R ate is a (test code = GFR) calculated parameterbased on serum Creatinin e, patient age and sex. GFR valuesless than 60 mL/min/1.73 squ are meters are alexandrea cative ofChronic Kidne y Disease. Values less than 15 mL/min/1.73squa re meters indicate Kidney failure. The calculation for GFR is based on the CK D-EPI (2020) calculat ion. This formulais race indifferent and is the recommended for isaías for GFRby the N ational Kidney Foundati on for Adults.The GFR will not calculate i f the sex is unknown or if thepatient's ag e is <18 years. CREATININE (test 0.8 mg/dL 0.6-1.3 N code = CREAT) TOTAL PROTEIN (test 6.4 g/dL 6.4-8.2 N code = PROT) ALBUMIN (test code = 3.80 g/dL 3.4-5.0 N ALB) CALCIUM (test code = 8.9 mg/dL 8.0-10.5 N CA) BILIRUBIN TOTAL 0.50 mg/dL 0.0-1.0 N (test code = BILT) SGOT/AST (test code 51 IUnit/L 15-37 H = AST) SGPT/ALT (test code 66 IUnit/L 30-65 H = ALT) ALKALINE PHOSPHATASE 102 IUnit/L 20-125 N TOTAL (test code = ALKP) PROTHROMBIN [id number] 14:15:00 Test Item Value Reference Range Interpretation Comments PROTHROMBIN TIME 11.7 SECONDS 9.3-12.9 N PATIENT (test code = PTP) INTERNATIONAL NORMAL 1.1 0.8-1.2 N TARGET INR BY RATIO (test code = INDICATIO N Indication INR) INR1. Prophylax is of venous thrombos is 2.0 - 3.0 (orthoped ic surgery), Proph ylaxis of venous throm bosis (other than hig h-risk surgery), Treat ment of Deep Vein Thrombosis/Pulm onary Embolism, Preve ntion of systemic emb olism - Tissue heart va lves, Acute Myocardia l Infarction (to prevent systemic emboli sm), Valvular heart disease, Atrial Fibrillation, Bileaflet mecha nical valve in aortic position.2. Mec hanical prosthetic valv es (high risk), 2. 5 - 3.5 Presence of Lup us Anticoagulant o r Antiphospholipi d Antibodies, Pre vention of systemic emb olism - Acute Myocardia l Infarction (to prevent recurrent infar ct). THROMBOPLASTIN TIME [id number] 14:15:00 Test Item Value Reference Range Interpretation Comments THROMBOPLASTIN TIME 65.6 Seconds 25.0-39.5 H Therape utic Range: PARTIAL (test code = 50.4 - 88.3 Seconds PTT) Effective 01/29/2019 CBC W/AUTO [id number] 14:05:00 Test Item Value Reference Range Interpretation Comments WHITE BLOOD CELL (test code = 6.5 x10 3/uL 4.5-11.0 N WBC) RED BLOOD CELL (test code = 4.83 x10 6/uL 4.00-5.60 N RBC) HEMOGLOBIN (test code = HGB) 15.3 g/dL 12.5-16.9 N HEMATOCRIT (test code = HCT) 44.9 % 37.5-50.7 N MEAN CELL VOLUME (test code = 93.0 fL 81.0-99.0 N MCV) MEAN CELL HGB (test code = MCH) 31.7 pg 27.0-33.0 N MEAN CELL HGB CONCETRATION 34.1 g/dL 33.0-37.0 N (test code = MCHC) RED CELL DISTRIBUTION WIDTH CV 13.2 % 11.5-14.5 N (test code = RDW) RED CELL DISTRIBUTION WIDTH SD 45.0 fL 37.0-54.0 N (test code = RDW-SD) PLATELET COUNT (test code = 170 x10 3/uL 150-400 N PLT) MEAN PLATELET VOLUME (test code 10.3 fL 7.0-9.0 H = MPV) NEUTROPHIL % (test code = NT%) 64.7 % 56.0-77.0 N IMMATURE GRANULOCYTE % (test 0.5 % 0.0-2.0 N code = IG%) LYMPHOCYTE % (test code = LY%) 21.3 % 14.0-32.0 N MONOCYTE % (test code = MO%) 9.2 % 4.8-9.0 H EOSINOPHIL % (test code = EO%) 3.7 % 0.3-3.7 N BASOPHIL % (test code = BA%) 0.6 % 0.0-2.0 N NUCLEATED RBC % (test code = 0.0 % 0-0 N NRBC%) NEUTROPHIL # (test code = NT#) 4.22 x10 3/uL 2.0-7.6 N IMMATURE GRANULOCYTE # (test 0.03 x10 3/uL 0.00-0.03 N code = IG#) LYMPHOCYTE # (test code = LY#) 1.39 x10 3/uL 1.0-3.8 N MONOCYTE # (test code = MO#) 0.60 x10 3/uL 0.1-0.8 N EOSINOPHIL # (test code = EO#) 0.24 x10 3/uL 0.0-0.2 H BASOPHIL # (test code = BA#) 0.04 x10 3/uL 0.0-0.2 N NUCLEATED RBC # (test code = 0.00 x10 3/uL 0.0-0.1 N NRBC#) MANUAL DIFF REQUIRED (test code NO = MDIFF) BASIC METABOLIC [id number] 11:19:00 Test Item Value Reference Range Interpretation Comments SODIUM (test code = 139 mEq/L 134-147 N NA) POTASSIUM (test code 4.1 mEq/L 3.4-5.0 N = K) CHLORIDE (test code 105 mEq/L 100-108 N = CL) CARBON DIOXIDE (test 27 mEq/l 21-33 N code = CO2) ANION GAP (test code 11 0-20 N = GAP) GLUCOSE (test code = 213 mg/dL 70-110 H GLU) BLOOD UREA NITROGEN 10 mg/dL 7-18 N (test code = BUN) GLOMERULAR 102.1 90-95 H The Glomerular FILTRATION RATE Filtration R ate is a (test code = GFR) calculated parameterbased on serum Creatinine, pat ient age and sex. GFR va luesless than 60 mL/min/ 1.73 square meters a re indicative ofCh ronic Kidney Disease. Values less than 15 mL/min/1.73squa re meters indicate Kidney failure. The calculation forGFR is based on the CKD-EPI (2020) calculat ion. This formulais race indifferent and is the recommended for isaías for GFRby the Nat nal Kidney Foundati on for Adults.The GFR will not calculate if th e sex is unknown or if thepatient's ag e is <18 years. CREATININE (test 0.9 mg/dL 0.6-1.3 N code = CREAT) CALCIUM (test code = 9.1 mg/dL 8.0-10.5 N CA) [id number] 11:19:00 Test Item Value Reference Range Interpretation Comments MAGNESIUM (test code = MAG) 1.95 mg/dL 1.80-2.40 N CBC W/AUTO [id number] 07:27:00 Test Item Value Reference Range Interpretation Comments WHITE BLOOD CELL (test code = 6.0 x10 3/uL 4.5-11.0 N WBC) RED BLOOD CELL (test code = 4.75 x10 6/uL 4.00-5.60 N RBC) HEMOGLOBIN (test code = HGB) 14.9 g/dL 12.5-16.9 N HEMATOCRIT (test code = HCT) 44.0 % 37.5-50.7 N MEAN CELL VOLUME (test code = 92.6 fL 81.0-99.0 N MCV) MEAN CELL HGB (test code = MCH) 31.4 pg 27.0-33.0 N MEAN CELL HGB CONCETRATION 33.9 g/dL 33.0-37.0 N (test code = MCHC) RED CELL DISTRIBUTION WIDTH CV 13.2 % 11.5-14.5 N (test code = RDW) RED CELL DISTRIBUTION WIDTH SD 45.0 fL 37.0-54.0 N (test code = RDW-SD) PLATELET COUNT (test code = 178 x10 3/uL 150-400 N PLT) MEAN PLATELET VOLUME (test code 10.7 fL 7.0-9.0 H = MPV) NEUTROPHIL % (test code = NT%) 55.9 % 56.0-77.0 L IMMATURE GRANULOCYTE % (test 0.5 % 0.0-2.0 N code = IG%) LYMPHOCYTE % (test code = LY%) 27.5 % 14.0-32.0 N MONOCYTE % (test code = MO%) 10.9 % 4.8-9.0 H EOSINOPHIL % (test code = EO%) 4.7 % 0.3-3.7 H BASOPHIL % (test code = BA%) 0.5 % 0.0-2.0 N NUCLEATED RBC % (test code = 0.0 % 0-0 N NRBC%) NEUTROPHIL # (test code = NT#) 3.35 x10 3/uL 2.0-7.6 N IMMATURE GRANULOCYTE # (test 0.03 x10 3/uL 0.00-0.03 N code = IG#) LYMPHOCYTE # (test code = LY#) 1.65 x10 3/uL 1.0-3.8 N MONOCYTE # (test code = MO#) 0.65 x10 3/uL 0.1-0.8 N EOSINOPHIL # (test code = EO#) 0.28 x10 3/uL 0.0-0.2 H BASOPHIL # (test code = BA#) 0.03 x10 3/uL 0.0-0.2 N NUCLEATED RBC # (test code = 0.00 x10 3/uL 0.0-0.1 N NRBC#) MANUAL DIFF REQUIRED (test code NO = MDIFF) COMMENTS: Daily while on HeparinTHROMBOPLASTIN TIME [id number] 04:47:00 Test Item Value Reference Range Interpretation Comments THROMBOPLASTIN TIME 60.3 Seconds 25.0-39.5 H Therape utic Range: PARTIAL (test code = 50.4 - 88.3 Seconds PTT) Effective 01/29/2019 THROMBOPLASTIN TIME [id number] 12:11:00 Test Item Value Reference Range Interpretation Comments THROMBOPLASTIN TIME 61.1 Seconds 25.0-39.5 H Therape utic Range: PARTIAL (test code = 50.4 - 88.3 Seconds PTT) Effective 01/29/2019 CBC W/AUTO [id number] 07:59:00 Test Item Value Reference Range Interpretation Comments WHITE BLOOD CELL (test code = 6.9 x10 3/uL 4.5-11.0 N WBC) RED BLOOD CELL (test code = 4.98 x10 6/uL 4.00-5.60 N RBC) HEMOGLOBIN (test code = HGB) 15.8 g/dL 12.5-16.9 N HEMATOCRIT (test code = HCT) 46.6 % 37.5-50.7 N MEAN CELL VOLUME (test code = 93.6 fL 81.0-99.0 N MCV) MEAN CELL HGB (test code = MCH) 31.7 pg 27.0-33.0 N MEAN CELL HGB CONCETRATION 33.9 g/dL 33.0-37.0 N (test code = MCHC) RED CELL DISTRIBUTION WIDTH CV 13.8 % 11.5-14.5 N (test code = RDW) RED CELL DISTRIBUTION WIDTH SD 47.5 fL 37.0-54.0 N (test code = RDW-SD) PLATELET COUNT (test code = 193 x10 3/uL 150-400 N PLT) MEAN PLATELET VOLUME (test code 10.2 fL 7.0-9.0 H = MPV) NEUTROPHIL % (test code = NT%) 53.2 % 56.0-77.0 L IMMATURE GRANULOCYTE % (test 0.6 % 0.0-2.0 N code = IG%) LYMPHOCYTE % (test code = LY%) 29.9 % 14.0-32.0 N MONOCYTE % (test code = MO%) 11.4 % 4.8-9.0 H EOSINOPHIL % (test code = EO%) 4.3 % 0.3-3.7 H BASOPHIL % (test code = BA%) 0.6 % 0.0-2.0 N NUCLEATED RBC % (test code = 0.0 % 0-0 N NRBC%) NEUTROPHIL # (test code = NT#) 3.67 x10 3/uL 2.0-7.6 N IMMATURE GRANULOCYTE # (test 0.04 x10 3/uL 0.00-0.03 H code = IG#) LYMPHOCYTE # (test code = LY#) 2.06 x10 3/uL 1.0-3.8 N MONOCYTE # (test code = MO#) 0.79 x10 3/uL 0.1-0.8 N EOSINOPHIL # (test code = EO#) 0.30 x10 3/uL 0.0-0.2 H BASOPHIL # (test code = BA#) 0.04 x10 3/uL 0.0-0.2 N NUCLEATED RBC # (test code = 0.00 x10 3/uL 0.0-0.1 N NRBC#) MANUAL DIFF REQUIRED (test code NO = MDIFF) COMMENTS: Daily while on HeparinBASIC METABOLIC [id number] 07:50:00 Test Item Value Reference Range Interpretation Comments SODIUM (test code = 137 mEq/L 134-147 N NA) POTASSIUM (test code 4.0 mEq/L 3.4-5.0 N = K) CHLORIDE (test code 103 mEq/L 100-108 N = CL) CARBON DIOXIDE (test 25 mEq/l 21-33 N code = CO2) ANION GAP (test code 13 0-20 N = GAP) GLUCOSE (test code = 153 mg/dL 70-110 H GLU) BLOOD UREA NITROGEN 8 mg/dL 7-18 N (test code = BUN) GLOMERULAR 105.8 90-95 H The Glomerular FILTRATION RATE Filtration R ate is a (test code = GFR) calculated parameterbased on serum Creatinine, pat ient age and sex. GFR va luesless than 60 mL/min/ 1.73 square meters a re indicative ofCh ronic Kidney Disease. Values less than 15 mL/min/1.73squa re meters indicate Kidney failure. The calculation forGFR is based on the CKD-EPI (2020) calculat ion. This formulais race indifferent and is the recommended for isaías for GFRby the Natio nal Kidney Foundati on for Adults.The GFR will not calculate if th e sex is unknown or if thepatient's ag e is <18 years. CREATININE (test 0.8 mg/dL 0.6-1.3 N code = CREAT) CALCIUM (test code = 9.3 mg/dL 8.0-10.5 N CA) [id number] 07:50:00 Test Item Value Reference Range Interpretation Comments MAGNESIUM (test code = MAG) 2.20 mg/dL 1.80-2.40 N THROMBOPLASTIN TIME [id number] 06:31:00 Test Item Value Reference Range Interpretation Comments THROMBOPLASTIN TIME 58.3 Seconds 25.0-39.5 H Therape utic Range: PARTIAL (test code = 50.4 - 88.3 Seconds PTT) Effective 01/29/2019 THROMBOPLASTIN TIME [id number] 00:07:00 Test Item Value Reference Range Interpretation Comments THROMBOPLASTIN TIME 52.0 Seconds 25.0-39.5 H Therape utic Range: PARTIAL (test code = 50.4 - 88.3 Seconds PTT) Effective 01/29/2019 B-TYPE NATRIURETIC [id number] 16:09:00 Test Item Value Reference Range Interpretation Comments B-TYPE NATRIURETIC PEPTIDE (test 81.0 PG/ML 0-100 N code = BNP) THROMBOPLASTIN TIME [id number] 16:01:00 Test Item Value Reference Range Interpretation Comments THROMBOPLASTIN TIME 33.1 Seconds 25.0-39.5 N Therape utic Range: PARTIAL (test code = 50.4 - 88.3 Seconds PTT) Effective 01/29/2019 COMMENTS: DRAW PTT 6 HOURS AFTER INITIATION OF HEPARINCBC W/AUTO [id number] 15:57:00 Test Item Value Reference Range Interpretation Comments WHITE BLOOD CELL (test code = 5.5 x10 3/uL 4.5-11.0 N WBC) RED BLOOD CELL (test code = 4.72 x10 6/uL 4.00-5.60 N RBC) HEMOGLOBIN (test code = HGB) 15.0 g/dL 12.5-16.9 N HEMATOCRIT (test code = HCT) 43.4 % 37.5-50.7 N MEAN CELL VOLUME (test code = 91.9 fL 81.0-99.0 N MCV) MEAN CELL HGB (test code = MCH) 31.8 pg 27.0-33.0 N MEAN CELL HGB CONCETRATION 34.6 g/dL 33.0-37.0 N (test code = MCHC) RED CELL DISTRIBUTION WIDTH CV 13.5 % 11.5-14.5 N (test code = RDW) RED CELL DISTRIBUTION WIDTH SD 45.6 fL 37.0-54.0 N (test code = RDW-SD) PLATELET COUNT (test code = 156 x10 3/uL 150-400 N PLT) MEAN PLATELET VOLUME (test code 9.9 fL 7.0-9.0 H = MPV) NEUTROPHIL % (test code = NT%) 61.8 % 56.0-77.0 N IMMATURE GRANULOCYTE % (test 0.5 % 0.0-2.0 N code = IG%) LYMPHOCYTE % (test code = LY%) 21.6 % 14.0-32.0 N MONOCYTE % (test code = MO%) 12.7 % 4.8-9.0 H EOSINOPHIL % (test code = EO%) 2.9 % 0.3-3.7 N BASOPHIL % (test code = BA%) 0.5 % 0.0-2.0 N NUCLEATED RBC % (test code = 0.0 % 0-0 N NRBC%) NEUTROPHIL # (test code = NT#) 3.39 x10 3/uL 2.0-7.6 N IMMATURE GRANULOCYTE # (test 0.03 x10 3/uL 0.00-0.03 N code = IG#) LYMPHOCYTE # (test code = LY#) 1.19 x10 3/uL 1.0-3.8 N MONOCYTE # (test code = MO#) 0.70 x10 3/uL 0.1-0.8 N EOSINOPHIL # (test code = EO#) 0.16 x10 3/uL 0.0-0.2 N BASOPHIL # (test code = BA#) 0.03 x10 3/uL 0.0-0.2 N NUCLEATED RBC # (test code = 0.00 x10 3/uL 0.0-0.1 N NRBC#) MANUAL DIFF REQUIRED (test code NO = MDIFF) COMMENTS: IF NOT ALREADY DONE WITHIN LAST 24 HOURSCOMPREHENSIVE METABOLIC PANEL 2022-12-30 15:55:00 Test Item Value Reference Range Interpretation Comments SODIUM (test code = 143 mEq/L 134-147 N NA) POTASSIUM (test code 3.9 mEq/L 3.4-5.0 N = K) CHLORIDE (test code 103 mEq/L 100-108 N = CL) CARBON DIOXIDE (test 31 mEq/l 21-33 N code = CO2) ANION GAP (test code 13 0-20 N = GAP) GLUCOSE (test code = 240 mg/dL 70-110 H GLU) BLOOD UREA NITROGEN 10 mg/dL 7-18 N (test code = BUN) GLOMERULAR 105.8 90-95 H The Glomerular FILTRATION RATE Filtration R ate is a (test code = GFR) calculated parameterbased on serum Creatinine, pat ient age and sex. GFR va luesless than 60 mL/min/ 1.73 square meters a re indicative ofCh ronic Kidney Disease. Values less than 15 mL/min/1.73squa re meters indicate Kidney failure. The calculation for GFR is based on the CK D-EPI (2020) calculat ion. This formulais race indifferent and is the recommended for isaías for GFRby the Natio nal Kidney Foundati on for Adults.The GFR will not calculate if th e sex is unknown or if thepatient's ag e is <18 years. CREATININE (test 0.8 mg/dL 0.6-1.3 N code = CREAT) TOTAL PROTEIN (test 6.5 g/dL 6.4-8.2 N code = PROT) ALBUMIN (test code = 3.80 g/dL 3.4-5.0 N ALB) CALCIUM (test code = 9.1 mg/dL 8.0-10.5 N CA) BILIRUBIN TOTAL 0.60 mg/dL 0.0-1.0 N (test code = BILT) SGOT/AST (test code 35 IUnit/L 15-37 N = AST) SGPT/ALT (test code 47 IUnit/L 30-65 N = ALT) ALKALINE PHOSPHATASE 89 IUnit/L 20-125 N TOTAL (test code = ALKP) LIPID PROFILE (CORONARY RISK)2022-12-30 15:55:00 Test Item Value Reference Range Interpretation Comments TRIGLYCERIDES (test 452 mg/dL 40-150 H code = TRIG) CHOLESTEROL (test 162 mg/dL <200 code = CHOL) CHOLESTEROL/HDL 6.89 RATIO 3.43-4.97 H RISK ASSOCIA MELIDA WITH RATIO (test code = CHOL/HDL RATIOS: RISK CHOLHDL) MALE FEMALE1/2 AVERAGE 3.43 3.27AVERAG E 4.97 4.442X AVERAGE 9.55 7.053X AVERAGE 23.39 11.04 NOTE THAT THE REFERENCE VALUE IS RELATEDTO RISK LEVELS RECOMMENDED BY THE NATL.HEART, MONICA G, AND BLOOD INST. HDL CHOLESTEROL 23.5 mg/dL 32-72 L (test code = HDL) LIPOPROTEIN LDL 76.0 mg/dL 0-100 N <100 OPTIMAL 100-129 (test code = LDL) NEAR OPTIM AL/ABOVE [id number] 89 HIGH>HF=197 CHARI Y HIGH*Guidelines provided by the National Choles terol EducationProgra m Adult Treatment Panel III HGBA1C%2022-12-30 15:50:00 Test Item Value Reference Range Interpretation Comments HGBA1C% (test code = HGBA1C%) 5.5 %A1C 4.8-6.0 N PROTHROMBIN [id number] 15:50:00 Test Item Value Reference Range Interpretation Comments PROTHROMBIN TIME 11.9 SECONDS 9.3-12.9 N PATIENT (test code = PTP) INTERNATIONAL NORMAL 1.1 0.8-1.2 N TARGET INR BY RATIO (test code = INDICATIO N Indication INR) INR1. Prophylax is of venous thrombos is 2.0 - 3.0 (orthoped ic surgery), Proph ylaxis of venous throm bosis (other than hig h-risk surgery), Treat ment of Deep Vein Thrombosis/Pulm onary Embolism, Preve ntion of systemic emb olism - Tissue heart va lves, Acute Myocardia l Infarction (to prevent systemic emboli sm), Valvular heart disease, Atrial Fibrillation, Bileaflet mecha nical valve in aortic position.2. Mec hanical prosthetic valv es (high risk), 2. 5 - 3.5 Presence of Lup us Anticoagulant o r Antiphospholipi d Antibodies, Pre vention of systemic emb olism - Acute Myocardia l Infarction (to prevent recurrent infar ct). COMMENTS: IF NOT ALREADY DONE WITHIN LAST 24 HOURSUA RFLX MICR CULT IF INDICATED 2022-12-30 12:55:00 Test Item Value Reference Range Interpretation Comments UA COLOR (test code = COLU) STRAW YEL/STRAW UA APPEARANCE (test code = CLEAR CLEAR APPU) UA GLUCOSE DIPSTICK (test 3+ NEGATIVE A code = DGLUU) UA BILIRUBIN DIPSTICK (test NEGATIVE NEGATIVE code = BILU) UA KETONE DIPSTICK (test NEGATIVE NEGATIVE code = KETU) UA SPECIFIC GRAVITY (test 1.002 1.005-1.030 L code = SGU) UA BLOOD DIPSTICK (test NEGATIVE NEGATIVE code = ADONAY) UA PH DIPSTICK (test code = 8.0 5.0-7.0 H ZAK) UA PROTEIN DIPSTICK (test NEGATIVE NEGATIVE code = PROU) UA UROBILINIOGEN DIPSTICK 0.2 mg/dL 0.2-1.0 (test code = URO) UA NITRITE DIPSTICK (test NEGATIVE NEGATIVE code = SHIRLEY) UA LEUKOCYTE ESTERASE NEGATIVE NEGATIVE DIPSTICK (test code = LEUU) UA WBC (test code = WBCU) 0-3 WBC/HPF 0-3 UA RBC (test code = RBCU) NONE SEEN RBC/HPF 0-3 UA WBC NO REFLEX (test code 0-3 WBC/HPF 0-3 = WBCUCL) UA BACTERIA (test code = NONE SEEN /HPF NONE SEEN BACU) UA SQUAMOUS CELLS (test NONE SEEN /HPF NONE SEEN code = SQU) Indication for culture: Flank PainSpecimen Description: CLEAN CATCH- XR CHEST 2 [id number] 00:00:00 [facility] 1970 Sex: M FAX: Eric Chairez [phone] [place]: St: ADM FAX: Zabrina Terrell [phone] --- Name: SHEKHAR LOZADA [facility] : 1970 Age/S: 52/M [address] [place] [address] Unit #: [id number] Loc: G.33[address] [place] [address] Phys: Zabrina Ruiz Acct: [id number] Dis Date: Status: ADM IN PHONE #: [phone] Exam Date: 12/30/2022 1002 FAX #: [phone] Reason: Cardiac Surgery Pre Op EXAMS: CPT CODE: [id number] XR CHEST 2 V 96605 PROCEDURE INFORMATION: Exam: XR Chest Exam date and time: 12/30/2022 9:27 AM Age: 52 years old Clinical indication: Other: Cardiac surgery pre op TECHNIQUE: Imaging protocol: Radiologic exam of the chest. Views: 2 views. PA and Lateral COMPARISON: CT CHEST W/O CONTRAST 12/30 9:21 AM FINDINGS: Lungs: Clear. No consolidation. Pleural spaces: Unremarkable. No pleural effusion. No pneumothorax. Heart/Mediastinum: Contours within normal limits. Bones/joints: No acute osseous process. IMPRESSION: No radiographically identified acute findings in the chest. at 1527 Reported and signed by: Francisca Lares M.D. CC:Eric Crabtree MD; Zabrina HERNANDEZ Technologist: Anand Ramesh RT(R) Trnscrd Date/Time/By: 12/30/2022 (1527) : By: [email or web address] Orig Print D/T: S: 12/30/2022 (2376) PAGE 1 Signed Report- CT CHEST W/O CONTRAST 2022-12-30 00:00:00 [facility] : 1970 Sex: M Name: SHEKHAR LOZADA [facility] : 1970 Age/S: 52 / M [address] [place] [address] Unit #: [id number] Loc: [place] [address] Phys: Zabrina Ruiz Acct: [id number] Dis Date: Status: ADM IN PHONE #: [phone] Exam Date: 12/30/2022929 FAX #: [phone] Reason: Cardiac Surgery Pre Op EXAMS: CPT CODE: [id number] CT CHEST W/O CONTRAST 25635 PROCEDURE INFORMATION: Exam: CT Chest Without Contrast; Diagnostic Exam date and time: 12/30/2022 9:21 AM Age: 52 years old Clinical indication: Screening exam; Pre-operative exam; Cardiovascular screening; Additional info: Cardiac surgery preop TECHNIQUE: Imaging protocol: Diagnostic computed tomography of the chest without contrast. Radiation optimization: All CT scans at this facility use at least one of these dose optimization techniques: automated exposure control; mA and/or kV adjustment per patient size (includes targeted exams where dose is matched to clinical indication); or iterative reconstruction. REPORTING DATA: Count of CT and Cardiac NM exams in prior 12 months: This patient has received 0 known CTs and 0 known cardiac nuclear medicine studies in the 12 months prior to the current study. COMPARISON: No relevant prior studies available. FINDINGS: Lungs: There is mild centrilobular and paraseptal emphysema. A 0.8 cm right middle lobe pulmonary nodule is present on series 3, image 139. No focal airspace consolidation. Pleural spaces: Unremarkable. No pneumothorax. No pleural effusion. Heart: The heart is normal in size.Severe coronary artery calcifications are present in the left main, left anterior descending, and right coronary arteries. Lymph nodes: Unremarkable. No enlarged lymph nodes. Vasculature: There is ectasia of the ascending thoracic aorta measuring 4.1 cm in diameter. Mild aortic atherosclerotic calcifications are present. Bones/joints: Unremarkable. No acute fracture. Soft tissues: Unremarkable. IMPRESSION: 1. Mild emphysema. 2. A 0.8 cm right middle lobe pulmonary nodule.For patients at low risk (minimal or absent history of smoking and of other known risk factors), recommend CT Chest at 6-12 months, then consider CT Chest at 18-24 months. For patients at high risk (history of smoking or of other known risk factors), recommend CT Chest at 6-12 months, then CT Chest at 18-24 months. (Reference: Gil) 3. Ectasia of the ascending thoracic aorta. 4. Severe coronary artery atherosclerosis. REFERENCES: PAGE 1 Signed Report (CONTINUED) Name: SHEKHAR LOZADA [facility] : 1970 Age/S: 52 / M [address] [place] [address] Unit #: [id number] Loc: [place] [address] Phys: Zabrina Ruiz Acct: [id number] Dis Date: Status: ADM IN PHONE #: [phone] Exam Date: 12/30/2022 0930 FAX #: [phone] Reason: Cardiac Surgery Pre Op EXAMS: CPT CODE: [id number] CT CHEST W/O CONTRAST 43921 (Co ntinued) Gil Haywood et al. Guidelines for Management of Incidental Pulmonary Nodules Detected on CTImages: From the Fleischner Society 2017. Radiology. 2017;284(1):228-243. at 1038 Reported and signed by: Janis Jeffries M.D. CC: Eric Crabtree MD; Zabrina HERNANDEZ Technologist:Zoya Sheth. RT(R)(CT); . CTDI: DLP: Trnscb Date/Time: 12/30/2022 (1038) [email or web address] Orig Print D/T: S: 12/30/2022 (6668) PAGE 2 Signed Report- DUP EXTRACRANIAL [id number] 00:00:00 [facility] : 1970 Sex: M Name: SHEKHAR LOZADA [facility] : 1970 Age/S: 52 / M [address] [place] [address] Unit #: [id number] Loc: [place] [address] Phys: Zabrina Ruiz Acct: [id number] Dis Date: Status: ADMIN PHONE #: [phone] Exam Date: 12/30/2022 1100 FAX #: [phone] Reason: Cardiac Surgery Pre Op EXAMS: CPT CODE: [id number] DUP EXTRACRANIAL ALEXY 80702 PROCEDURE INFORMATION: Exam: US Duplex Bilateral Extracranial Arteries, Carotid Arteries Exam date and time: 12/30/2022 9:54 AM Age: 52 years old Clinical indication: Screening exam; Additional info: Cardiac surgery pre op TECHNIQUE: Imaging protocol: Real-time Duplex ultrasound scan of the bilateral carotid and vertebral arteries combining terry scale, color Doppler and spectral waveform analysis. Bilateral exam. Exam focused on the carotid arteries. COMPARISON: CT CHEST W/O CONTRAST 12/30/2022 9:21 AM FINDINGS: Right common carotid artery: Unremarkable. No occlusion or stenosis. Waveforms are normal. Right internal carotid artery: Minimal plaque. No occlusion or stenosis. Waveforms are normal. Right ICA/CCA ratio: Within normal limits. Right external carotid artery: No stenosis in the origin. Right vertebral artery: Unremarkable. Antegradeflow. Left common carotid artery: Unremarkable. No occlusion or stenosis. Waveforms are normal. Leftinternal carotid artery: Minimal plaque. No occlusion or stenosis. Waveforms are normal. Left ICA/CCA ratio: Within normal limits. Left external carotid artery: No stenosis in the origin. Left vertebral artery: Unremarkable. Antegrade flow. IMPRESSION: No carotid arterial stenosis. REFERENCES: SRU CRITERIA. The degree of internal carotid artery stenosis is based on criteria defined by the Society ofRadiologists in Ultrasound (SRU). Normal is no stenosis. Mild is less than 50% stenosis. Moderate is50-69% stenosis. Severe is greater than 69% stenosis to near occlusion. Near occlusion is a markedlynarrowed lumen. Total occlusion is no detectable patent lumen. at 1157 Reported and signed by: Adolph Woods M.D. PAGE 1 Signed Report (CONTINUED) Name: SHEKHAR LOZADA [facility] : 1970 Age/S: 52 / M [address] [place] [address] Blvd Unit #: [id number] Loc: [place] [address] Phys: Zabrina Ruiz Acct: [id number] Dis Date: Status: ADM IN PHONE #: [phone] Exam Date: 12/30/2022 1100 FAX #: [phone] Reason: Cardiac Surgery Pre Op EXAMS: CPT CODE: [id number] DUP EXTRACRANIAL ALEXY 84098 (Continued) CC: Eric Crabtree MD; Zabrina HERNANDEZ Technologist: Ada Hutton RDMS(Domo)(BR) Trnscb Date/Time: 12/30/2022 (9907) Isabella Orig Print D/T: S: 12/30/2022 (0421) Probe: PAGE 2 Signed Report- DUP VEIN ALEXY 2022-12-30 00:00:00 [facility] : 1970 Sex: M Name: SHEKHAR LOZADA [facility] : 1970 Age/S: 52 / M [address] [place] [address] Blvd Unit #:[id number] Loc: [place] [address] Phys: Zabrina Ruiz Acct: [id number] Dis Date: Status: ADMIN PHONE #: [phone] Exam Date: 12/30/2022 1100 FAX #: [phone] Reason: Cardiac Surgery PreOp Report Has Been Amended EXAMS: CPT CODE: [id number] DUP VEIN ALEXY 92820 Addendum - 12/30/2022SIGNED 12/30/2022 ADDENDUM: [id number] US/DUPVBIL Addendum: The dimensions at the left greater saphenous vein are in mm at 1206 Reported and signed by: Fernando Valdez M.D. Report PROCEDURE INFORMATION: Exam: US Duplex Lower Extremity Veins; Vein mapping Exam date and time: 12/30/2022 10:10 AM Age: 52 years old Clinical indication: Screening exam; Additional info: Cardiac surgery pre op TECHNIQUE: Imaging protocol: Real-time duplex ultrasound of the extremities with 2-D terry scale, color Doppler flow and spectral waveform chance sis including responses to compression and other maneuvers (when performed) with image documentation. Complete exam focused on the bilateral lower extremity veins for vein mapping. COMPARISON: No relevant prior studies available. FINDINGS: Right superficial veins: Normal compressibility. Greater saphenous vein is patent. Right greater saphenous vein-upper thigh: 5.3 mm Right greater saphenous vein-mid thigh: 4.5 mm Right greater saphenous vein-lower thigh: 4.8 mm Right greater saphenous vein-upper le.6 mm Right greater saphenous vein- mid le.9 mm Right greater saphenous vein-lower le.9 mm Left superficial veins: Normal compressibility. Greater saphenous vein is patent. Left great saphenous vein-upper thigh: 4.5 Left great saphenous vein-mid thigh: 3.8 Left great saphenous vein-lower thigh: 3.6 Left great saphenous vein-upper le.5 PAGE 1 Signed Report (CONTINUED) Name: SHEKHAR LOZADA [facility] : 1970 Age/S: 52 / M [address] [place] [address] Unit #: [id number] Loc:[place] [address] Phys: Zabrina Ruiz Acct: [id number] Dis Date: Status: ADM IN PHONE #: [phone] Exam Date: 12/30/2022 1100 FAX #: [phone] Reason: Cardiac Surgery Pre Op Report Has Been Amended EXAMS: CPT CODE: [id number] DUP VEIN ALEXY 26220 (Continued) Left great saphenous vein-mid le.6 Left great saphenous vein-lower le.5 Soft tissues: Unremarkable. IMPRESSION: 1. Greater saphenous veins are patent bilaterally. 2. Bilateral lower extremity vein mapping as above. at 1205 Reported and signed by:Fernando Valdez M.D. CC: Eric Crabtree MD; Zabrina HERNANDEZ Technologist: Ada Hutton RDMS(Domo)(BR) Trnvtb Date/Time: 12/30/2022 (1205) [email or web address] Orig Print D/T: S: 12/30/2022 (9722) Probe: PAGE 2 Signed ReportADC,CLC OR LCC ONLY - INFLUENZA A & B DIRECT [id number] 01:04:00 Test Item Value Reference Range Interpretation Comments Influenza A (test code = 38423-2) Negative Negative Influenza B (test code = 10717-9) Negative Negative Lab Interpretation (test code = Normal 51964-8) [facility] (ALB, T.PRO, BILI T, BU/BC, ALT, AST, ALK PHOS)2019-12-31 00:54:00 Test Item Value Reference Range Interpretation Comments TOTAL BILI (test code = 0535029359) 0.3 mg/dL 0.1-1.1 BILI UNCON (test code = 6668006651) 0.0 mg/dL 0.1-1.1 L BILI CONJ (test code = 1897160405) 0.0 mg/dL 0-0.3 T PROTEIN (test code = 4013484483) 7.4 g/dL 6.3-8.2 ALBUMIN (test code = 1329550035) 4.4 g/dL 3.5-5 ALK PHOS (test code = 9142659348) 137 U/L 34-122 H ALTv (test code = 1742-6) 47 U/L 5-50 AST(SGOT) (test code = 2144518577) 40 U/L 13-40 Lab Interpretation (test code = Abnormal 09124-1) [facility] Met[facility] (NA, K, CL, CO2, GLUCOSE, BUN, CREATININE, CA)2019-12-31 00:54:00 Test Item Value Reference Range Interpretation Comments NA (test code = 140 mmol/L 135-145 2617037434) K (test code = 3.8 mmol/L 3.5-5 9718925492) CL (test code = 100 mmol/L 98-108 9467227154) CO2 TOTAL (test code = 31 mmol/L 23-31 2852367242) AGAP (test code = 2-16 2525387728) BUN (test code = 14 mg/dL 7-23 2798211345) GLUCOSE (test code = 169 mg/dL 70-110 H 2190119599) CREATININE (test code = 0.88 mg/dL 0.6-1.25 0488378215) CALCIUM (test code = 9.5 mg/dL 8.6-10.6 1700013299) eGFR Calculation mL/min/1.73m2 (Non-) (test code = 9597528340) eGFR Calculation mL/min/1.73m2 () (test code = 5635942434) HARIKA (test code = HARIKA) Association of [...] tests). Lab Interpretation Abnormal (test code = 70110-3) [facility] Head W/O [id number] 00:46:04No acute findings. HISTORY:Headache, acute, normal neuro [...] extracranial tissues demonstrate no acute findings.IMPRESSIONNo acute findings.[facility] WITH [id number] 00:41:00 Test Item Value Reference Range Interpretation Comments WBC (test code = See_Comment [Automated message] 1090-2) The system [employer] generated this result transmitted ref erence range: 4.20 - 1 0.70 10*3/?L. The re ference range was not u sed to interpret this result as normal/abnor mal. RBC (test code = See_Comment [Automated message] 859-8) The system [employer] generated this result transmitted ref erence range: [...] RDW-SD (test code 43.0 fL 38.5-51.6 = 30433-4) RDW-CV (test code 12.3 % 12.1-15.4 = 788-0) PLT (test code = See_Comment [Automated message] 497-3) The system [employer] generated this result transmitted ref erence range: 150 - 32 8 10*3/?L. The re ference range was not u sed to interpret this result as normal/abnor mal. MPV (test code = 9.8 fL 9.8-13 72884-6) NRBC/100 WBC (test See_Comment [Automat ed message] code = 7505718353) The syste m which generated this result transmitted ref erence range: 0.0 - 10 .0 /100 WBCs. The refer ence range was not u sed to interpret this result as normal/abnor mal. NRBC x10^3 (test <0.01 See_Comment [Automated message] code = 6742495937) The syste m which generated this result transmitted ref erence range: 10*3/?L. The reference range was not used to interpr et this result as normal/abnormal . GRAN MAT (NEUT) % 65.7 % (test code = 770-8) IMM GRAN % (test 0.50 % code = 5074465412) LYMPH % (test code 22.3 % = 736-9) MONO % (test code 9.3 % = 5905-5) EOS % (test code = 1.6 % 713-8) BASO % (test code 0.6 % = 706-2) GRAN MAT 5.71 10*3/uL 1.99-6.95 x10^3(ANC) (test code = [id number]) IMM GRAN x10^3 0.04 10*3/uL 0-0.06 (test code = [id number]) LYMPH x10^3 (test 1.94 10*3/uL 1.09-3.23 code = 731-0) MONO x10^3 (test 0.81 10*3/uL 0.36-1.02 code = 742-7) EOS x10^3 (test 0.14 10*3/uL 0.06-0.53 code = 711-2) BASO x10^3 (test 0.05 10*3/uL 0.01-0.09 code = 704-7) [facility] Notes Date/Time Note Provider Source 2023-01-12 13:08:00-00:00 [id number] [address] PATIENT NAME: SHEKHAR LOZADA ADMIT DATE: 12/14 05/07 ACCOUNT NO: [id number] ROOM NO: [facility] [place] AGE: 52 REPORT TYPE: 360 - QUERY RESPONSE DOCUMENT SEX: M ADMITTING PHYSICIAN:Eric Crabtree MD ATTENDING PHYSICIAN:Eric Crabtree MD Provider Query QUERY TEXT: Condition General 360MD Query related questions should be directed to: [email or web address] [Based on your clinical judgment, can you please provide a diagnosis (e.g. Hypovolemic Shock, Postoperativ e Shock, Cardiogenic, Distributive Shock, or Other More Appropriate Diagnosis) based on the clinical indicators belo w? The patient's Clinical Indicators include: Status post CABG x 4 (BURDICK-LAD, SVG-Ramus, SVG-O M, SVG-PDA) and ALAA Critical Care note 01/02 Acute blood loss anemia Critical Care note 01/02 BP - Systolic 93 - BP - Diastolic 49 - 3 07:01 BP - Systolic 90 - BP - Diastolic 48 - 3 06:35 Norepinephrine Bitartrate (NOREPINEPHRINE 8 MG/N S 250 ML) 250 ML TITRATE IV Consult 01/02 Options provided: -- Respond - Create new note now -- Dismiss - Not applicable / Not valid -- Dismiss - Clinically unable to determine / Un known -- Assign to another provider QUERY RESPONSE: cardiogenic shock Query created by: Juliane Nunes on 01/03/2023 11: 21 AM at 1308 PATIENT NAME: SHEKHAR LOZADA [id number] 2023-01-09 09:21:00-00:00 [facility] Progress Note REPORT#:[id number] REPORT STATUS: Signed DATE:01/09/23 TIME: 920 PATIENT: SHEKHAR LOZADA UNIT #: [id number] ROOM/BED: [facility] [place]-1 : 69 AGE: 52 SEX: M ATTEND: Sheila Crabtree MD ADM AUTHOR: Rod Hancock WAITER/WAITRESS SECOND CLASS * ALL edits or amendments must be made on the [employer]/computer document * Rod Hancock 01/09/23 0921: Subjective Chief complaint: He is doing well. Breathing is stable. On RA No SOB, CP, f/c/r, N/V/D. Review of Systems ROS Constitutional: fatigue, generalized weakness. Skin: Denies: itching, laceration, rash. Allergy/Immun: Denies: anaphylaxis, itching, rhinorrhea. Eyes: Denies: visual loss/blurred, diplopia, eye pain. ENT: Denies: mouth pain, sinus problem, sore throat, throat pain. Respiratory: Reports: KISER (dyspnea on exertion), SOB. Denies: hemoptysis, pleurisy, pleuritic pain, pneumonia, productive cough (spu jim). Cardiovascular: Reports: chest pain. Denies: KISER (dyspnea on exe rtion), orthopnea, palpitations. GI: Denies: constipation, GERD, hematochezia, melena . : Denies: flank pain, testicular swelling. Musculoskeletal: Denies: extremity pain, joint swelling, neck freeman n, thoracic pain. Heme: Denies: bleeding, bruising. Objective General VS/I O: Last Documented: Result Date Time Pulse Ox 94 01/09 0753 B/P 141/67 01/09 0753 B/P Mean 0.0 01/09 0753 O2 Delivery Room air 01/09 0753 Temp 36.9 01/09 0753 Pulse 82 01/09 0753 Resp 20 01/09 0753 FiO2 21 01/08 1944 O2 Flow Rate 2 01/05 1945 24 hour I O ending at 0700: 01/09 0700 01/08 1900 Intake Total 480 Output Total Balance 480 Intake, Oral 480 Number 2 Bowel Movements Number Voids 4 Patient 109 kg Weight Weight Standing scale Measurement Method PATIENT WEIGHT: Weight (lb): 240 Weight (oz): 4.86 Weight (kg): 109.000 Medications: Active Meds + DC'd Last 24 Hrs Furosemide (LASIX 20MG INJ) 20 MG ONCE ONE IV (D C) Magnesium Sulfate (MAGNESIUM SULFATE 2GM/SWFI 50 ML) 50 ML ONCE ONE IV ( DC) Oxycodone HCl (ROXICODONE) 5 MG Q4H PRN PRN PO Oxycodone HCl (ROXICODONE) 10 MG Q4H PRN PRN PO Amlodipine Besylate (NORVASC) 2.5 MG DAILY PO Metoprolol Tartrate (LOPRESSOR) 25 MG Q12HR PO Ipratropium Afton (ATROVENT) 500 MCG RTQ2H PRN PRN INH Cyanocobalamin (Vitamin B-12 500 mcg tab) 500 MC G DAILY PO Ferrous Sulfate (FERROUS SULFATE) 325 MG DAILY P O Lidocaine (LIDODERM) 1 PATCH DAILY TOPICAL Bisacodyl (DULCOLAX) 10 MG ONCE PRN RECTAL Atorvastatin Calcium (LIPITOR) 40 MG 2100 PO Clopidogrel Bisulfate (Plavix) 75 MG DAILY PO Polyethylene Glycol (MIRALAX) 17 GM DAILY PO Pantoprazole (PROTONIX) 40 MG DAILY@0600 PO Aspirin (ASPIRIN) 81 MG DAILY PO Amiodarone HCl (CORDARONE) 200 MG TID PO Docusate Sodium (COLACE) 100 MG BID PO Sennosides (Senna Lax 8.6 MG TABLET) 17.2 MG BED TIME PO Acetaminophen (TYLENOL) 650 MG Q4H PRN PRN PO Acetaminophen (TYLENOL) 650 MG Q4H PRN PRN RECTA L Dextrose/Water (DEXTROSE 10% IN WATER) 125 ML DIR PRN IV (CKD) Dextrose/Water (DEXTROSE 10% IN WATER) 250 ML DIR PRN IV (CKD) Glucagon (GLUCAGON) 1 MG ASDIR PRN IM Magnesium Sulfate (MAGNESIUM SULFATE 4GM/SWFI 10 0ML) 100 ML ASDIR PRN IV Magnesium Sulfate (MAGNESIUM SULFATE 2GM/SWFI 50 ML) 50 ML ASDIR PRN IV Magnesium Sulfate/Dextrose (MAGNESIUM SULFATE 1G M/D5W 100ML) 100 ML ASDIR PRN IV Ondansetron HCl (ZOFRAN) 4 MG Q6H PRN PRN IV Sodium Chloride (SODIUM CHLORIDE) 20 ML ASDIR IV Physical Exam General appearance: alert, awake, oriented Head/eyes: atraumatic, normocephalic Neck: no JVD Cardiovascular: normal heart sounds, normal S1/S 2, regular rate rhythm Respiratory/chest: aerating well, symmetric expa nsion, no distress, no tenderness Abdomen: soft, non-tender, no distention Genitourinary: no bladder distention, no flank p ain Extremities: no edema Musculoskeletal: normal inspection Neuro/ASBESTOS CLOTH INSPECTOR: alert, oriented X 3, CNII-XII intact, no motor deficits Skin: dry, intact Psychiatry: normal affect, normal mood Results Findings/Data: Laboratory Tests 01/09/23254: [Embedded Image Not Available] Laboratory Tests 01/09 255 Chemistry Sodium (134 - 147 mEq/L) 133 L Potassium (3.4 - 5.0 mEq/L) 4.4 Chloride (100 - 108 mEq/L) 99 L Carbon Dioxide (21 - 33 mEq/l) 28 Anion Gap (0 - 20) 11 BUN (7 - 18 mg/dL) 12 Creatinine (0.6 - 1.3 mg/dL) 0.9 Glomerular Filtr Rate (90 - 95) 102.1 H Glucose (70 - 110 mg/dL) 155 H Calcium (8.0 - 10.5 mg/dL) 8.9 Magnesium (1.80 - 2.40 mg/dL) 2.00 Laboratory Tests 01/09 255 Hematology WBC (4.5 - 11.0 x10 3/uL) 12.9 H RBC (4.00 - 5.60 x10 6/uL) 3.77 L Hgb (12.5 - 16.9 g/dL) 11.8 L Hct (37.5 - 50.7 %) 36.3 L MCV (81.0 - 99.0 fL) 96.3 MCH (27.0 - 33.0 pg) 31.3 MCHC (33.0 - 37.0 g/dL) 32.5 L RDW (11.5 - 14.5 %) 13.0 Plt Count (150 - 400 x10 3/uL) 344 MPV (7.0 - 9.0 fL) 9.1 H Neut % (Auto) (56.0 - 77.0 %) 69.8 Lymph % (Auto) (14.0 - 32.0 %) 16.5 [place] % (Auto) (4.8 - 9.0 %) 9.7 H Eos % (Auto) (0.3 - 3.7 %) 2.5 Baso % (Auto) (0.0 - 2.0 %) 0.3 Neut # (Auto) (2.0 - 7.6 x10 3/uL) 8.96 H Lymph # (Auto) (1.0 - 3.8 x10 3/uL) 2.12 [place] # (Auto) (0.1 - 0.8 x10 3/uL) 1.25 H Eos # (Auto) (0.0 - 0.2 x10 3/uL) 0.32 H Baso # (Auto) (0.0 - 0.2 x10 3/uL) 0.04 Abs Immat Gran (auto) (0.00 - 0.03 x10 3/uL) 0. 16 H Add Manual Diff NO Immature Gran % (0.0 - 2.0 %) 1.2 Nucleated RBC % (0 - 0 %) 0.0 Nucleated RBCs # (Man) (0.0 - 0.1 x10 3/uL) 0.0 0 Radiology data: Recent Impressions: ULTRASOUND - DUP VEIN ALEXY 01/08 1551 Report Impression - Status: SIGNED Entered: 01/08/2023 1656 IMPRESSION: No evidence of deep vein thrombosis. Right saphenous femoral junction echogenic throm bus Impression By: [email or web address] - Martín Cuadra M.D. RADIOLOGY - XR CHEST 1 V 01/09 0707 Report Impression - Status: SIGNED Entered: 01/09/2023 0829 IMPRESSION: 1. Persistent left basilar opacity which may rep resent airspace disease and associated small left pleural effusi on. 2. Left upper lobe linear opacity, suggesting di scoid atelectasis. Impression By: [email or web address] - Paulie Arvizu M.D. Results: labs reviewed, vital signs reviewed, vi brandon signs stable, current med profile rev'd Treatment Prophylaxis Treatment Prophylaxis Oxygen: room air Drain(s)/tube(s): Drain(s)/tube(s): chest, urinary catheter Diagnosis, Assessment Plan Free Text A P: Assessment and Plan: - Dyspnea due to Multivessel CAD and Emphysema. - Emphysema/COPD. - Multivessel CAD. - CP due to CAD. - HX of HTN. - Smoker. - S/p CABG x 4 (BURDICK-LAD, SVG-Ramus, SVG-OM, SVG -PDA), ALAA, EVH (RGSV) and Posterior pericartiotomy. Plan: CVN1. Will go home soon. Will continue Monitor respiratory status, breath ing tx, o2 support. Pain meds. Antiemetics. Follow labs and replace as needed. SCDs for DVT ppx. Continue Home meds. Monitor. Code status: full code Plan discussed with: patient, admitting physicia n, consultants, nurse Quality: Gen Med Crit Care Advanced Care Plan 65 or Older Discussed with: patient Deana Chavezjeannette Rinaldi 01/11/23 0016: Attestations Physician Attestation Agree w/findings plan: Patient seen and examined, I agree with the findings and plans as documented by Rod Hancock NP Electronically Signed by Rod Hancock WAITER/WAITRESS SECOND CLASS on at 0922 Electronically Signed by Jessi Chavez MD on 0 01/11/23 at 0039 RPT #:[id number] END OF REPORT 2023-01-09 09:05:00-00:00 [id number] [place] [address] PATIENT NAME: SHEKHAR LOZADA ADMIT DATE: 12/14 05/07 ACCOUNT NO: [id number] ROOM NO: [id number] AGE: 52 REPORT TYPE: eECHOCARDIOGRAM REPORT SEX: M ADMITTING PHYSICIAN:Eric Crabtree MD ATTENDING PHYSICIAN:Eric Crabtree MD *[place] [address] Transthoracic Echocardiogram Patient: Shekhar Lozada Study Date: 01/08/2023 BP: 143 / 92 Location: CO CCL URN: [id number] 2417 : 1970 Age: 52 Height: 65 in / 165.1 cm Gender: M Weight: 243.5 lb / 110.7 kg BMI/BSA: 40.6 kg/m 2 / 2.15 m 2 *Interpreting Physician: * Jadyn Phillip MD *Temporary Staff Accountant: * Lucy Ardon Indications: CAD, R/O PERICARDIAL EFFUSION. Study data: Transthoracic echocardiogram. Proced ure: Transthoracic echocardiography was performed. Image quality wa s adequate. The study was technically limited due to excessive abdomin al air. Complete 2D, complete spectral Doppler, and color Doppler. Lo cation: Bedside. Patient status: Inpatient. Patient room number: 3343. Study status: HEAVENLY. Findings Left ventricle: The cavity size is normal. Wall thickness is increased. Systolic function is at the lower limits of norm al. The estimated ejection fraction is 50-54%. Wall motion is norm al; there are no regional wall motion abnormalities. Left ventric ular diastolic function parameters are indeterminate. Right ventricle: Not well visualized. The cavity size is normal. PATIENT NAME: SHEKHAR LOZADA [id number] Systolic function is reduced. TAPSE measurement is estimated at 11 mm. Insufficient tricuspid regurgitation jet to nehemiah mate RVSP. Left atrium: The atrium is normal in size. Right atrium: The atrium is normal in size. Aorta: The aorta is not visualized. Aortic root: The aortic root is upper normal in size. Aortic valve: The valve is trileaflet. The leafl ets are mildly thickened. There is no evidence of stenosis. The re is no regurgitation. Mitral valve: The valve is structurally normal. There is no evidence of stenosis. There is mild regurgitatio n. Tricuspid valve: The valve is structurally chava l. There is trivial regurgitation. Pulmonic valve: Not well visualized. The valve i s structurally normal. There is physiologic regurgitation. Pericardium: There is no pericardial effusion. Pulmonary arteries: The main pulmonary artery is normal-sized. Systemic veins: Inferior vena cava: The vessel is at the upper l imits of normal in size. The respirophasic diameter changes are in the no rmal range (= 50%). Measurements Left ventricle Value Ref TIFFANY, LAX 5.1 cm 4.2 - 5.8 ESD, LAX 3.6 cm 2.5 - 4.0 ESD/bsa, LAX 1.7 cm/m 2 1.3 - 2.1 FS, LAX 29 % 25 - 43 ESD/bsa major 3.3 cm/m 2 --------- ax, A4C TIFFANY/bsa minor 3.3 cm/m 2 --------- ax, A4C TIFFANY major ax, 8.7 cm --------- A2C ESD major ax, 8.0 cm --------- A2C TIFFANY/bsa major 4.0 cm/m 2 --------- ax, A2C ESD/bsa major 3.7 cm/m 2 --------- ax, A2C PW, ED 1.5 cm 0.6 - 1.0 IVS/PW, ED 0.9 --------- EF 52 % 52 - 72 E', lat dane, 4.0 cm/sec >=10.0 TDI E/e', lat dane, 22 --------- TDI E', med dane, 3.9 cm/sec >=7.0 TDI E/e', med dane, 22 --------- TDI E', avg, TDI 4.0 cm/sec --------- PATIENT NAME: SHEKHAR LOZADA [id number] E/e', avg, TDI 22 <=14 LVOT Value Ref Diam, S 2.22 cm --------- Area 3.9 cm 2 --------- Peak emory, S 1.41 m/sec --------- Mean emory, S 1.04 m/sec --------- VTI, S 23.2 cm --------- Peak grad, S 8 mm Hg --------- Mean grad, S 5 mm Hg --------- SV 89 ml --------- Qs 6.6 L/min --------- Qs/bsa 3.1 L/(min-m 2) --------- SV/bsa 42 ml/m 2 --------- Ventricular septum Value Ref IVS, ED 1.3 cm 0.6 - 1.0 Right ventricle Value Ref TAPSE, MM 1.1 cm 1.7 - 3.1 RVOT Value Ref Peak v, S 0.94 m/sec --------- Peak grad, S 4 mm Hg --------- Left atrium Value Ref AP dim, ES 4.95 cm 3.00 - 4.00 Vol/bsa, ES, 23 ml/m 2 12 - 37 1-p A4C Vol, ES, 2-p 61 ml --------- Vol/bsa, ES, 28 ml/m 2 16 - 34 2-p Vol/bsa, ES, 25 ml/m 2 16 - 34 A/L AP dim, ES MM 4.5 cm 3.0 - 4.0 LA/Ao root 1.09 --------- ratio, MM Right atrium Value Ref Area, ES 13 cm 2 10 - 18 SI dim, ES, A4C 4.9 cm 3.4 - 5.3 SI dim/bsa, ES, 2.3 cm/m 2 1.8 - 3.0 A4C Vol, ES, A/L 31 ml --------- Vol, ES, 1-p 31 ml --------- A4C Vol/bsa, ES, 14 ml/m 2 11 - 39 1-p A4C Aortic valve Value Ref Leaflet sep 4.0 cm --------- Leaflet sep, MM 1.95 cm --------- Peak v, S 1.73 m/sec --------- PATIENT NAME: SHEKHAR LOZADA [id number] Mean v, S 1.12 m/sec --------- VTI, S 25.6 cm --------- Mean grad, S 5.8 mm Hg --------- Peak grad, S 11.9 mm Hg --------- LVOT/AV, VTI 0.91 --------- ratio TIFFANIE, VTI 3.50 cm 2 --------- LVOT/AV, Vpeak 0.82 --------- ratio TIFFANIE, Vmax 3.15 cm 2 --------- Mitral valve Value Ref Peak E 0.88 m/sec --------- Peak A 0.67 m/sec --------- Decel time 205 ms --------- PHT 50 ms --------- Peak grad, D 3.1 mm Hg --------- Peak E/A ratio 1.31 --------- MVA, PHT 4.4 cm 2 --------- Pulmonic valve Value Ref AZ v, ED 0.74 m/sec --------- Aortic root Value Ref Root diam, ED 4.11 cm --------- MM Ascending aorta Value Ref AAo AP diam, S 3.9 cm --------- AAo AP 1.8 cm/m 2 --------- diam/bsa, S Conclusions Summary: 1. Left ventricle: The cavity size is normal. Wa ll thickness is increased. Systolic function is at the lower li mits of normal. The estimated ejection fraction is 50-54%. Wall mot ion is normal; there are no regional wall motion abnormalities. Left ventricular diastolic function parameters are indeterminate. 2. Right ventricle: Systolic function is reduced . 3. Mitral valve: There is mild regurgitation. 4. Pericardium, extracardiac: There is no perica rdial effusion. Prepared and electronically signed by Jadyn Phillip MD 01/09/2023 09:05 PATIENT NAME: SHEKHAR LOZADA [id number] at 0905 PATIENT NAME: SHEKHAR LOZADA [id number] 2023-01-09 08:04:00-00:00 [facility] Cardiothoracic Surgery Prog REPORT#:[id number] REPORT STATUS: Signed DATE:01/09/23 TIME: 0804 PATIENT: SHEKHAR LOZADA UNIT #: [id number] ROOM/BED: [place] [address] : [birth year] AGE: 52 SEX: M ATTEND: Sheila Crabtree MD ADM AUTHOR: Zabrina Ruiz Physic * ALL edits or amendments must be made on the [employer]/computer document * See Addendum General Post-op: day 6 Status post: 01/02/23 CABG x 4 (BURDICK-LAD, SVG-Ramus, SVG-OM, SVG-PDA) ANTONETTE HAYWARD (RGSV) Posterior pericartiotomy Subjective Chief complaint: s/p CABG Review of Systems Constitutional: Denies: fever, malaise. Skin: Denies: rash. Allergy/Immun: Denies: anaphylaxis, hives, itching. Eyes: Denies: redness, discharge, swelling. ENT: Denies: ear drainage, ear ringing. Respiratory: Denies: SOB, wheezing. Cardiovascular: Denies: chest pain, KISER (dyspnea on exertion), e sushila. GI: Denies: constipation, diarrhea. : Denies: hematuria, nocturia. Musculoskeletal: Denies: joint pain, joint swelling. Heme: Denies: bleeding, bruising. Endocrine: Denies: polydipsia, polyuria. Neuro: Denies: confusion, dizziness. All systems rev neg: except as marked Objective General VS/I O Last Documented: Result Date Time Pulse Ox 94 01/09 753 B/P 141/67 01/09 753 B/P Mean 0.0 01/09 753 O2 Delivery Room air 01/09 753 Temp 98.4 01/09 753 Pulse 82 01/09 753 Resp 20 01/09 753 FiO2 21 01/09 1944 O2 Flow Rate 2 01/05 1945 24 hour I O ending at 0700: 01/09 0700 01/08 1900 Intake Total 480 Output Total Balance 480 Intake, Oral 480 Number 2 Bowel Movements Number Voids 4 Patient 109 kg Weight Weight Standing scale Measurement Method PATIENT WEIGHT: Weight (lb): 240 Weight (oz): 4.86 Weight (kg): 109.000 Physical Exam General appearance: alert, awake, oriented Wound/incision: Location: sternal Site condition: dressing clean dry, dressing in tact HEENT: anicteric, mucosal membranes moist Neck: full range of motion, non-tender Cardiovascular: BP/pulses equal bilat., regular rate rhythm Respiratory: crackles, decreased breath sounds, aerating well, symmetric expansion, no distress Abdomen: soft, non-tender Extremities: dry, moves all Musculoskeletal: full range of motion, painless range of motion Neuro/ASBESTOS CLOTH INSPECTOR: alert, oriented X 3, normal speech, n o motor deficits Skin: dry, intact Psychiatry: normal affect, normal mood Treatment Prophylaxis Treatment Prophylaxis Oxygen: nasal cannula Drain(s)/tube(s): Drain(s)/tube(s): chest, urinary catheter Quality: Trauma Gen Surg Advanced Care Plan 65 or Older Discussed with: patient Diagnosis, Assessment Plan Hospital course to date: This is a 52-year-old gentle man with a past medical history of hypertension who initially presented to an outside hospital with complaints of back pain, and chest pains. He reports the back pain as mid upper back pain that occurred over the last couple of weeks. Usually pain is worse with gonzalez ging position The patient reports he start ed to develop chest pains located midsternal for the past 2 weeks. He denies any radiating symptoms. Describes the chest pains as a heaviness, squeez ing sensation. Denies any syncope, palpitations. Denies any nausea vomitin g or diaphoresis. Patient underwent left heart catheterization by Dr. Felton at [facility] this showed multi vessel CAD with a 90% LAD, 60-70% left main, 70-80% circumflex. An echocardiogram was also done at [facility] on 12/28/2022. This showed a normal left ventricular ejection fractio n of 55-60%, moderate LVH, mild mitral regurgitation, grade 1 diastolic dysfunction. The patient does admit to sm oking 1-2 times per week. Does admit to alcohol 1-2 times per week. Patient does have a strong famil y history of coronary artery disease in his father and his grandmother. Denies any surgical history, Review of the records from [facility] show the p micah was admitted with a troponin peak of 483. Hemoglobin A1c was noted t o be 5.5. Renal function appears normal. Patient was transferred to [facility] for khai ation for coronary bypass graft surgery. Hemoglobin A1c noted to be 5.[address] [facility] Assessment/plan 1.coronary artery disease Begin work-up for coronary artery bypass graft with appropriate studies. 2. Hypertension 3. Chest pains Patient has been seen and examined by Dr. Jose fatima. Work-up underway for coronary artery bypass graft surgery. Further recommendations to follow 12/31/22 Patient resting comfortable denies pain. AAOx3 Respiratory: 100% oxygen on room air. Cardiac: Remains sinus rhythm GI: Denies constipation diarrhea positive bowel movement. : Voiding well. 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 Likely consider coronary artery bypass surgery e preet next week. Patient was seen and examine d by Dr. Crabtree. Further recommendations to follow 01/01 Patient resting comfortable denies pain. AAOx3 Respiratory: 100% oxygen on room air. Cardiac: Remains sinus rhythm GI: Denies constipation or diarrhea, positive ramon wel movement. : Voiding well. 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 Pulmonary consulted for history of smoking and a bnormal CT suggestive of emphysema. PFT hopefully to be completed in the morning. STS 0.39% Patient was seen and examine d by Dr. Crabtree. Further recommendations to follow Coronary artery bypass graft surgery was discuss ed with the patient. The risk of the operation including , bleeding, infe ction, heart attack, stroke, pneumonia, renal failure, dialysis, prol onged ICU stay, car tracheostomy, need for long-term rehabilitation were all discussed with the patient. Patient's questions were answered and the patient agreed t o proceed with surgery. 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 Crabtree, discussed plan of care with multidisciplinary team. 01/04 Patient is alert and oriented, up in the recline r, complaining of back pain Left pleural chest tube discontinued to minimize pain and facilitate deep breathing Multimodal pain control Chest x-ray showed atelectasis. Wean O2 as delvis ated, encourage I-S and ambulation Pulmonary toilet, Mucomyst Discontinue central line Normal renal function, discontinue Siddiqui cathete r Glycemic control Keep in CVICU for close monitoring Patient seen and plan reviewed with the Bro multidisciplinary team 01/05 Overall doing better today, pain improved Discontinue chest tube Chest x-ray reviewed. Gentle diuresis with Lasix 20 mg IV once Encourage I-S and mobilization PT/OT Transfer to intermediate care Patient seen and plan reviewed with the Bro multidisciplinary team 01/06/23 POD 4 Patient recovering well, no complaints. 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 Crabtree and plan of care d iscussed with team. 01/07 Blood pressure on the high side. Increase metopr olol to 5 mg twice daily Chest x-ray reviewed. Respiratory status stable on room air Labs pending. Gentle diuresis Discontinue pacing wires before discharge Encourage I-S and mobilization Anticipate discharge in the next 24 to 48 hours if remains in stable condition. Pt seen and plan reviewed with Dr Crabtree 01/09/23 Patient resting comfortable. Denies complaints Patient has been out of bed walking +BM. voiding well. Denies SOB. Cardiac: Sinus rhythm Pacing wiires Dc/d yesterday. Awiting echo resul ts. On ASA, Plavix , statin. BBLKR. Okay to DC home one Echo R/O effusion. at 0811 Addendum 1: 01/09/23 1008 by Zabrina Ruiz sic Echo show no effsuion. Okay to DC home today. at 1008 RPT #:[id number] END OF REPORT 2023-01-08 14:28:00-00:00 [facility] REPORT#:[id number] REPORT STATUS: Signed DATE:01/08/23 TIME: 1428 PATIENT: SHEKHAR LOZADA UNIT #: [id number] ROOM/BED: [place] [address] : 68 AGE: 52 SEX: M ATTEND: Sheila Crabtree MD ADM AUTHOR: Jadyn Phillip MD * ALL edits or amendments must be made on the el [employer]/computer document * Subjective Chief complaint: Back pain. Objective General VS/I O: 24 hour I O ending at 0700: 01/08 0700 01/07 1900 Intake Total 360 Output Total 200 Balance 360 -200 Intake, Oral 360 Number 2 Bowel Movements Number Voids 3 Output, Urine 200 Patient 110 kg Weight Weight Standing scale Measurement Method Vital Signs: Date Time Temp Pulse Resp B/P B/P Pulse O2 O2 F low FiO2 Mean Ox Delivery Rate 01/08 1113 97.9 69 12 145/74 97.6 96 Room air 01/08 0728 98.1 83 12 143/92 108.6 94 Room air 01/08 0313 98.4 76 13 129/67 0.0 95 Room air 01/07 2336 99.0 75 13 136/67 0.0 94 Room air 01/07 2013 82 19 160/86 115 01/07 1937 93 Room air 01/07 1602 98.1 81 12 130/72 91.4 94 Room air 01/07 1509 82 24 01/07 1508 81 22 163/93 123 01/07 1500 74 18 PATIENT WEIGHT: Weight (lb): 242 Weight (oz): 8.14 Weight (kg): 110.000 Medications: Active Meds + DC'd Last 24 Hrs Furosemide (LASIX 20MG INJ) 20 MG ONCE ONE IV (D C) Magnesium Sulfate (MAGNESIUM SULFATE 2GM/SWFI 50 ML) 50 ML ONCE ONE IV ( DC) Oxycodone HCl (ROXICODONE) 5 MG Q4H PRN PRN PO Oxycodone HCl (ROXICODONE) 10 MG Q4H PRN PRN PO Amlodipine Besylate (NORVASC) 2.5 MG DAILY PO Metoprolol Tartrate (LOPRESSOR) 25 MG Q12HR PO Ipratropium [place] (ATROVENT) 500 MCG RTQ2H PRN PRN INH Cyanocobalamin (Vitamin B-12 500 mcg tab) 500 MC G DAILY PO Ferrous Sulfate (FERROUS SULFATE) 325 MG DAILY P O Lidocaine (LIDODERM) 1 PATCH DAILY TOPICAL Bisacodyl (DULCOLAX) 10 MG ONCE PRN RECTAL Atorvastatin Calcium (LIPITOR) 40 MG 2100 PO Clopidogrel Bisulfate (Plavix) 75 MG DAILY PO Polyethylene Glycol (MIRALAX) 17 GM DAILY PO Pantoprazole (PROTONIX) 40 MG DAILY@0600 PO Aspirin (ASPIRIN) 81 MG DAILY PO Amiodarone HCl (CORDARONE) 200 MG TID PO Docusate Sodium (COLACE) 100 MG BID PO Sennosides (Senna Lax 8.6 MG TABLET) 17.2 MG BED TIME PO Acetaminophen (TYLENOL) 650 MG Q4H PRN PRN PO Acetaminophen (TYLENOL) 650 MG Q4H PRN PRN RECTA L Dextrose/Water (DEXTROSE 10% IN WATER) 125 ML DIR PRN IV (CKD) Dextrose/Water (DEXTROSE 10% IN WATER) 250 ML DIR PRN IV (CKD) Glucagon (GLUCAGON) 1 MG ASDIR PRN IM Magnesium Sulfate (MAGNESIUM SULFATE 4GM/SWFI 10 0ML) 100 ML ASDIR PRN IV Magnesium Sulfate (MAGNESIUM SULFATE 2GM/SWFI 50 ML) 50 ML ASDIR PRN IV Magnesium Sulfate/Dextrose (MAGNESIUM SULFATE 1G M/D5W 100ML) 100 ML ASDIR PRN IV Ondansetron HCl (ZOFRAN) 4 MG Q6H PRN PRN IV Oxycodone HCl (ROXICODONE) 5 MG Q4H PRN PRN PO ( DC) Oxycodone HCl (ROXICODONE) 10 MG Q4H PRN PRN PO (DC) Sodium Chloride (SODIUM CHLORIDE) 20 ML ASDIR IV Status post: 4V CABG and ALAA Physical Exam General appearance: alert, awake, oriented Neck: full range of motion, non-tender, supple/n o meningismus, no bruit/NL carotids, no JVD Cardiovascular: CV assessment: pedal edema, regular rate and rh ythm Respiratory: decreased breath sounds, on oxygen, no distress Abdomen: non-tender, obese Genitourinary: no urinary catheter Lower extremity: LE assessment: edema Musculoskeletal: normal inspection Neuro/ASBESTOS CLOTH INSPECTOR: alert, oriented X 3, normal speech Skin: dry Psychiatry: normal affect, normal mood Results Findings/Data: Laboratory Tests 01/08 0205 Chemistry Sodium (134 - 147 mEq/L) 136 Potassium (3.4 - 5.0 mEq/L) 4.2 Chloride (100 - 108 mEq/L) 103 Carbon Dioxide (21 - 33 mEq/l) 29 Anion Gap (0 - 20) 9 BUN (7 - 18 mg/dL) 12 Creatinine (0.6 - 1.3 mg/dL) 0.8 Glomerular Filtr Rate (90 - 95) 105.8 H Glucose (70 - 110 mg/dL) 164 H Calcium (8.0 - 10.5 mg/dL) 8.7 Magnesium (1.80 - 2.40 mg/dL) 1.89 Laboratory Tests 01/08 0205 Hematology WBC (4.5 - 11.0 x10 3/uL) 10.1 RBC (4.00 - 5.60 x10 6/uL) 3.61 L Hgb (12.5 - 16.9 g/dL) 11.4 L Hct (37.5 - 50.7 %) 34.0 L MCV (81.0 - 99.0 fL) 94.2 MCH (27.0 - 33.0 pg) 31.6 MCHC (33.0 - 37.0 g/dL) 33.5 RDW (11.5 - 14.5 %) 12.8 Plt Count (150 - 400 x10 3/uL) 261 MPV (7.0 - 9.0 fL) 9.2 H Neut % (Auto) (56.0 - 77.0 %) 66.9 Lymph % (Auto) (14.0 - 32.0 %) 17.6 V[place] % (Auto) (4.8 - 9.0 %) 11.5 H Eos % (Auto) (0.3 - 3.7 %) 2.6 Baso % (Auto) (0.0 - 2.0 %) 0.4 Neut # (Auto) (2.0 - 7.6 x10 3/uL) 6.72 Lymph # (Auto) (1.0 - 3.8 x10 3/uL) 1.77 [place] # (Auto) (0.1 - 0.8 x10 3/uL) 1.16 H Eos # (Auto) (0.0 - 0.2 x10 3/uL) 0.26 H Baso # (Auto) (0.0 - 0.2 x10 3/uL) 0.04 Abs Immat Gran (auto) (0.00 - 0.03 x10 3/uL) 0. 10 H Add Manual Diff NO Immature Gran % (0.0 - 2.0 %) 1.0 Nucleated RBC % (0 - 0 %) 0.0 Nucleated RBCs # (Man) (0.0 - 0.1 x10 3/uL) 0.0 0 Laboratory Tests 01/08 0205 Chemistry Magnesium (1.80 - 2.40 mg/dL) 1.89 Radiology data: Recent Impressions: RADIOLOGY - XR CHEST 1 V 01/08 0813 Report Impression - Status: SIGNED Entered: 01/08/2023 1053 IMPRESSION: Stable chest. Impression By: [email or web address] - Pk Obregon M.D. Results: labs reviewed, vital signs reviewed, vi brandon signs stable Treatment Prophylaxis Treatment Prophylaxis Drain(s)/tube(s): Drain(s)/tube(s): chest, urinary catheter Diagnosis, Assessment Plan Free Text DxA P Notes Free Text DxA P Notes: 52-year-old male wi th medical history of hypertension, lifelong smoker, alcohol use who presents to ED at [facility] with back pain and chest pain. He was ruled in for non-STEMI. Taken to [facility] where he was found to have multivessel CAD with tight left main. Patient is transferred here for CABG evaluation. He is not having active chest pain. His main complaint is back pain and headache. His blood pressure is markedly elevated at the time of visit, 208/111 mmHg. 1. NSTEMI/multivessel CAD with left main disease s/p 4V CABG and ALAA awake and alert, on nasal cannula on DAP, BB, statin postop care per CTS Diuresis per CTS 2. Hypertension BP stable Continue beta-alejandra 3. Tobacco and alcohol use Counseled cessation pulmo following 4. Chronic back pain. manage per primary team Doing well. 01/07/23: -CAD/ACB -STABLE 01/08/23; S/P CABG x 4 (BURDICK-LAD, SVG-Ramus, SVG-OM, SVG-PDA) 01/02/23 ALAA Posterior pericartiotomy PAF ON AMIOD PO S/P KAYLEY LIGATION OPTIMIZE BP CONTROL ECHO TELE: NSR AMBULATE Electronically Signed by Jadyn Phillip MD on 0 01/08/23 at 1429 RPT #:[id number] END OF REPORT 2023-01-08 13:30:00-00:00 HCACL [facility] ([facility]) Discharge Summary REPORT#:[id number] REPORT STATUS: Signed DATE:01/08/23 TIME: 1330 PATIENT: SHEKHAR LOZADA UNIT #: [id number] ROOM/BED: G.[id number] : 69 AGE: 52 SEX: M ATTEND: Sheila Crabtree MD ADM AUTHOR: Caro Bingham * ALL edits or amendments must be made on the [employer]/computer document * PCP PCP PCP: PCP: Eric Crabtree MD General Information Date of admission: Observation Start Date: Date of admission: 12/30/22 Discharge date: 01/08/23 Discharge diagnosis: Severe CAD s/p CABG Hospital course: This is a 52-year-old gentle man with a past medical history of hypertension who initially presented to an outside hospital with complaints of back pain, and chest pains. He reports the back pain as mid upper back pain that occurred over the last couple of weeks. Usually pain is worse with gonzalez ging position The patient reports he started to develop chest pains locate d midsternal for the past 2 weeks. He denies any radiating symptoms. Describes the chest pains as a heaviness, squeez ing sensation. Denies any syncope, palpitations. Denies any nausea vomitin g or diaphoresis. Patient underwent left heart catheterization by Dr. Felton at [facility] this showed multi vessel CAD with a 90% LAD, 60-70% left main, 70-80% circumflex. An echocardiogram was also d one at [facility] on 12/28/2022. This showed a normal left ventricular ejection fraction of 55-60%, mo derate LVH, mild mitral regurgitation, grade 1 diastolic dys function. The patient does admit to sm oking 1-2 times per week. Does admit to alcohol 1-2 times per week. Patient does have a strong famil y history of coronary artery disease in his father and his grandmother. Denies any surgical history, Review of the records from [facility] show the p atgeronimo was admitted with a troponin peak of 483. Hemoglobin A1c was noted t o be 5.5. Renal function appears normal. Patient was transferred to [facility] for coronary bypass graft surgery. Hemoglobin A1c noted to be 5.[address] [facility] Assessment/plan 1.coronary artery disease Begin work-up for coronary artery bypass graft with appropriate studies. 2. Hypertension 3. Chest pains Patient has been seen and ex amined by Dr. Crabtree. Work-up underway for coronary artery bypass graft surgery. Further recommendations to follow 12/31/22 Patient resting comfortable denies pain. AAOx3 Respiratory: 100% oxygen on room air. Cardiac: Remains sinus rhythm GI: Denies constipation diarrhea positive bowel movement. : Voiding well. 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 Likely consider coronary artery bypass surgery e preet next week. Patient was seen and examine d by Dr. Crabtree. Further recommendations to follow 01/01 Patient resting comfortable denies pain. AAOx3 Respiratory: 100% oxygen on room air. Cardiac: Remains sinus rhythm GI: Denies constipation or diarrhea, positive ramon wel movement. : Voiding well. 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 Pulmonary consulted for history of smoking and a bnormal CT suggestive of emphysema. PFT hopefully to be completed in the morning. STS 0.39% Patient was seen and examine d by Dr. Crabtree. Further recommendations to follow Coronary artery bypass graft surgery was discussed with the patient. The risk of the operation including , bleeding, infecti on, heart attack, stroke, pneumonia, renal rubi lure, dialysis, prolonged ICU stay, car tracheostomy , need for long-term rehabilitation were all dis cussed with the patient. Patient's questions were answered and t he patient agreed to proceed with surgery. 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 Crabtree, discussed plan of care with multidisciplinary team. 01/04 Patient is alert and oriented, up in the recline r, complaining of back pain Left pleural chest tube discontinued to minimize pain and facilitate deep breathing Multimodal pain control Chest x-ray showed atelectasis. Wean O2 as delvis ated, encourage I-S and ambulation Pulmonary toilet, Mucomyst Discontinue central line Normal renal function, discontinue Siddiqui cathete r Glycemic control Keep in CVICU for close monitoring Patient seen and plan reviewed with the Bro multidisciplinary team 01/05 Overall doing better today, pain improved Discontinue chest tube Chest x-ray reviewed. Gentle diuresis with Lasix 20 mg IV once Encourage I-S and mobilization PT/OT Transfer to intermediate care Patient seen and plan reviewed with the Bro multidisciplinary team 01/06/23 POD 4 Patient recovering well, no complaints. 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 Crabtree and plan of care d iscussed with team. 01/07 Blood pressure on the high side. Increase metopr olol to 5 mg twice daily Chest x-ray reviewed. Respiratory status stable on room air Labs pending. Gentle diuresis Discontinue pacing wires before discharge Encourage I-S and mobilization Anticipate discharge in the next 24 to 48 hours if remains in stable condition. Pt seen and plan reviewed with Dr Crabtree 01/08 Remains in stable condition, ready to go home Blood pressure improved, normal sinus rhythm Pacing wires discontinued. Limited echocardiogra m pending Continue dual antiplatelet therapy, statin and m etoprolol Taper amiodarone off BLE venous Doppler pending Incision intact and healing. Continue sternal pr ecautions for 6 weeks Bilateral lower extremity edema. Continue Lasix Replace electrolytes Possible discharge home toda y pending echocardiogram and lower extremity venous Doppler Follow-up in clinic in 1 to 2 weeks. Follow-up marcos Felton Med Rec PCP PCP: PCP: Eric Crabtree MD Med Rec Discharge meds: Stop taking the following medications: LISINOPRIL/HCTZ (ZESTORETIC 10/12.5 MG) 10 MG-12 .5 MG TAB 1 TABLET ORAL DAILY. Start taking the following new medications: CLOPIDOGREL (PLAVIX) 75 MG TAB 75 MILLIGRAM ORAL DAILY. Qty = 30 Refills = 1 FERROUS SULFATE (FEOSOL) 325 MG (65 MG IRON) TAB 325 MILLIGRAM ORAL DAILY. Qty = 30 Refills = 1 AMIODARONE (PACERONE) 200 MG TAB 200 MILLIGRAM ORAL TWICE DAILY. Qty = 21 No Refills Instructions: PLEASE TAKE 200 MG Q/12H FOR 1 WEEK 200 MG DAILY FOR ANOTHER WEEK AND STOP ATORVASTATIN (LIPITOR) 40 MG TAB 40 MILLIGRAM ORAL 2100 Qty = 30 No Refills METOPROLOL TARTRATE (LOPRESSOR) 25 MG TAB 25 MILLIGRAM ORAL EVERY 12 HOURS. Qty = 60 No Refills ASPIRIN (ASPIRIN) 81 MG TAB.CHEW 81 MILLIGRAM ORAL DAILY. Qty = 30 Refills = 1 FUROSEMIDE (LASIX) 20 MG TAB 20 MILLIGRAM ORAL DAILY. Qty = 10 No Refills HYDROcodone/APAP (HYDROcodone/APAP 5/325) 5 MG-3 25 MG TAB 1 TABLET ORAL EVERY 6 HOURS. Qty = 28 No Refills Objective VS/I O Last Documented: Result Date Time Pulse Ox 96 01/08 1113 B/P 145/74 01/08 1113 B/P Mean 97.6 01/08 1113 O2 Delivery Room air 01/08 1113 Temp 97.9 01/08 1113 Pulse 69 01/08 1113 Resp 12 01/08 1113 O2 Flow Rate 2 01/05 1945 FiO2 40 01/03 2032 24 hour I O ending at 0700: 01/08 0700 01/07 1900 Intake Total 360 Output Total 200 Balance 360 -200 Intake, Oral 360 Number 2 Bowel Movements Number Voids 3 Output, Urine 200 Patient 243 lb Weight Weight Standing scale Measurement Method PATIENT WEIGHT: Weight (lb): 242 Weight (oz): 8.14 Weight (kg): 110.000 General appearance: alert, oriented, mental stat us normal, no respiratory distress Head/Eyes: atraumatic, normocephalic Neck: non-tender Cardiovascular: regular rate rhythm, normal hear t sounds Respiratory: aerating well, symmetric expansion GI: soft, non-tender Extremities: moves all, edema Neuro/ASBESTOS CLOTH INSPECTOR: alert, oriented X 3, normal speech, n o motor deficits Psychiatry: normal affect, normal mood Results Findings/Data: Laboratory Tests: 01/08 0205 Chemistry Sodium (134 - 147 mEq/L) 136 Potassium (3.4 - 5.0 mEq/L) 4.2 Chloride (100 - 108 mEq/L) 103 Carbon Dioxide (21 - 33 mEq/l) 29 Anion Gap (0 - 20) 9 BUN (7 - 18 mg/dL) 12 Creatinine (0.6 - 1.3 mg/dL) 0.8 Glomerular Filtr Rate (90 - 95) 105.8 H Glucose (70 - 110 mg/dL) 164 H Calcium (8.0 - 10.5 mg/dL) 8.7 Magnesium (1.80 - 2.40 mg/dL) 1.89 Hematology WBC (4.5 - 11.0 x10 3/uL) 10.1 RBC (4.00 - 5.60 x10 6/uL) 3.61 L Hgb (12.5 - 16.9 g/dL) 11.4 L Hct (37.5 - 50.7 %) 34.0 L MCV (81.0 - 99.0 fL) 94.2 MCH (27.0 - 33.0 pg) 31.6 MCHC (33.0 - 37.0 g/dL) 33.5 RDW (11.5 - 14.5 %) 12.8 Plt Count (150 - 400 x10 3/uL) 261 MPV (7.0 - 9.0 fL) 9.2 H Neut % (Auto) (56.0 - 77.0 %) 66.9 Lymph % (Auto) (14.0 - 32.0 %) 17.6 [place] % (Auto) (4.8 - 9.0 %) 11.5 H Eos % (Auto) (0.3 - 3.7 %) 2.6 Baso % (Auto) (0.0 - 2.0 %) 0.4 Neut # (Auto) (2.0 - 7.6 x10 3/uL) 6.72 Lymph # (Auto) (1.0 - 3.8 x10 3/uL) 1.77 Vinton # (Auto) (0.1 - 0.8 x10 3/uL) 1.16 H Eos # (Auto) (0.0 - 0.2 x10 3/uL) 0.26 H Baso # (Auto) (0.0 - 0.2 x10 3/uL) 0.04 Abs Immat Gran (auto) (0.00 - 0.03 x10 3/uL) 0 .10 H Add Manual Diff NO Immature Gran % (0.0 - 2.0 %) 1.0 Nucleated RBC % (0 - 0 %) 0.0 Nucleated RBCs # (Man) (0.0 - 0.1 x10 3/uL) 0.0 0 Radiology data: Recent Impressions: RADIOLOGY - XR CHEST 1 V 01/08 0813 Report Impression - Status: SIGNED Entered: 01/08/2023 1053 IMPRESSION: Stable chest. Impression By: [email or web address] - Pk Obregon M.D. Discharge Instructions PCP PCP: PCP: Eric Crabtree MD )( Discharge to: Home/Self Care Discharge Instructions Additional Discharge Routines: PCP Follow-Up, At tending Follow-Up )( Diet: Cardiac )( Weight monitoring: Daily )( Activity: No Lifting )( Wound/dressing care: Do not submerge incision , Keep wound clean and dry Follow-up Appointments PCP follow up: PCP: Eric Crabtree MD PCP follow up timeframe: In 1-2 weeks Attending Physician: Attending Physician: Geraldo Felton MD Attending physician follow up timeframe: In 1-2 weeks Quality: Discharge Advanced Care Plan 65 or Older Discussed with: patient at 1337 at 1809 RPT #:[id number] END OF REPORT 2023-01-08 12:50:00-00:00 HCACL [facility] ([facility]) Clinical Note REPORT#:[id number] REPORT STATUS: Signed DATE:01/08/23 TIME: 1250 PATIENT: SHEKHAR LOZADA UNIT #: [id number] ROOM/BED: [place] [id number] : 69 AGE: 52 SEX: M ATTEND: Sheila Crabtree MD ADM AUTHOR: Virgilio Royal MD * ALL edits or amendments must be made on the [employer] document * Clinical Note Note: Will be discharged home today f/u in the clinic in 4 weeks for PFT Electronically Signed by Virgilio Royal MD on at 1251 RPT #:[id number] END OF REPORT 2023-01-07 18:32:00-00:00 [facility]ACL [facility] ([facility]) Cardiology Progress Note REPORT#:[id number] REPORT STATUS: Signed DATE:01/07/23 TIME: 1831 PATIENT: SHEKHAR LOZADA UNIT #: [id number] ROOM/BED: 3343-1 : 69 AGE: 52 SEX: M ATTEND: Sheila Crabtree MD ADM AUTHOR: Jadyn Phillip MD * ALL edits or amendments must be made on the [employer] document * Subjective Chief complaint: Back pain. Objective General VS/I O: 24 hour I O ending at 0700: 01/07 0700 01/06 1900 Intake Total 600 Output Total 550 Balance 50 Intake, Oral 600 Number 1 Bowel Movements Output, Urine 550 Patient 111 kg Weight Weight Standing scale Measurement Method Vital Signs: Date Time Temp Pulse Resp B/P B/P Pulse O2 O2 F low FiO2 Mean Ox Delivery Rate 01/07 1602 98.1 81 12 130/72 91.4 94 Room air 01/07 1509 82 24 01/07 1508 81 22 163/93 123 01/07 1500 74 18 01/07 1400 75 26 01/07 1300 71 20 126/71 94 01/07 1201 77 34 124/75 95 01/07 1200 77 31 01/07 1159 97.7 74 16 132/73 0.0 95 Nasal cannula 01/07 1154 75 23 132/73 96 01/07 1152 75 40 131/66 90 01/07 1140 80 19 122/64 86 01/07 1121 80 25 119/65 87 01/07 1100 83 19 137/84 104 01/07 1051 94 Room air 01/07 1040 82 22 137/71 99 01/07 1038 83 26 151/85 110 01/07 1035 82 23 137/79 101 01/07 1000 79 19 01/07 0947 80 19 155/83 112 01/07 0900 80 17 01/07 0856 80 18 168/90 122 01/07 0846 80 14 177/85 119 96 01/07 0808 83 21 147/88 111 94 01/07 0803 98.2 82 12 169/100 123.2 95 Room air 01/07 0800 82 26 94 01/07 0700 79 20 92 01/07 0420 98.4 82 17 183/98 0.0 94 Room air 01/06 2349 98.4 82 133/74 0.0 100 Room air 01/06 1944 93 Room air 01/06 1929 184/98 0.0 01/06 1928 99.0 82 191/87 0.0 93 Room air PATIENT WEIGHT: Weight (lb): 244 Weight (oz): 11.41 Weight (kg): 111.000 Medications: Medication(s) Ordered: Autonomic Drugs Sig/Dorothy Start time Last Medication Dose Route Stop Time Status Admin Ipratropium A[place] 500 MCG RTQ2H PRN PRN 01/05 1537 AC INH 02/04 1536 Ipratropium [place] 500 MCG RTQ4H 01/02 1545 DC 01/07 INH 01/08 1529 1139 Blood Formation,Coagulation Sig/Dorothy Start time Last Medication Dose Route Stop Time Status Admin Ferrous Sulfate 325 MG DAILY 01/05 09 AC 12/15 5 PO 02/04 0859 0839 Clopidogrel Bisulfate 75 MG DAILY 01/03 0900 A C 01/07 PO 02/02 0859 0839 Cardiovascular Drugs Sig/Dorothy Start time Last Medication Dose Route Stop Time Status Admin Amlodipine Besylate 2.5 MG DAILY 01/07 1030 AC 01/07 PO 02/06 1029 1153 Metoprolol Tartrate 25 MG Q12HR 01/07 1030 AC 0 01/07 PO 02/06 1029 1036 Atorvastatin Calcium 40 MG 2100 01/03 2100 AC 0 01/06 PO 02/02 2059 2129 Amiodarone HCl 200 MG TID 01/02 2100 AC 01/07 PO 02/01 2059 1508 Metoprolol Tartrate 12.5 MG Q12HR 01/02 2100 DC PO 02/01 2059 Central Nervous System Agents Sig/Dorothy Start time Last Medication Dose Route Stop Time Status Admin Aspirin 81 MG DAILY 01/02 2137 AC 01/07 PO 02/01 2136 0838 Gabapentin 200 MG BID 01/02 2100 DC 01/07 PO 01/07 0901 0839 Acetaminophen 650 MG Q4H PRN PRN 01/02 1545 AC 01/06 PO 02/01 1544 0830 Acetaminophen 650 MG Q4H PRN PRN 01/02 1545 AC RECTAL 02/01 1544 Magnesium Sulfate 100 ML ASDIR PRN 01/02 1545 A C IV 02/01 1544 Magnesium Sulfate 50 ML ASDIR PRN 01/02 1545 AC IV 02/01 1544 Magnesium Sulfate/ 100 ML ASDIR PRN 01/02 1545 AC 01/06 Dextrose IV 02/01 1544 0546 Oxycodone HCl 5 MG Q4H PRN PRN 01/02 1545 DC PO 01/07 1544 Oxycodone HCl 10 MG Q4H PRN PRN 01/02 1545 DC 01/07 PO 01/07 1544 0837 Electrolytic, Caloric, And Gisselle Sig/Dorothy Start time Last Medication Dose Route Stop Time Status Admin Furosemide 20 MG ONCE ONE 01/07 1215 DC 01/07 IV 01/07 1216 1254 Dextrose/Water 125 ML ASDIR PRN 01/02 1545 CKD 01/03 IV 02/01 1544 1648 Dextrose/Water 250 ML ASDIR PRN 01/02 1545 CKD IV 02/01 1544 Sodium Chloride 20 ML ASDIR 01/01 1245 AC IV 01/31 1244 Gastrointestinal Drugs Sig/Dorothy Start time Last Medication Dose Route Stop Time Status Admin Bisacodyl 10 MG ONCE PRN 01/04 1200 AC RECTAL 02/03 1159 Polyethylene Glycol 17 GM DAILY 01/03 0900 AC 0 01/07 PO 02/02 0859 0839 Pantoprazole 40 MG DAILY@0600 01/03 0600 AC PO 02/02 0559 0359 Docusate Sodium 100 MG BID 01/02 2100 AC 01/07 PO 02/01 2059 0839 Sennosides 17.2 MG BEDTIME 01/02 2100 AC 01/06 PO 02/01 Ondansetron HCl 4 MG Q6H PRN PRN 01/02 1545 AC IV 02/01 1544 Hormones And Synthetic Substit Sig/Dorothy Start time Last Medication Dose Route Stop Time Status Admin Glucagon 1 MG ASDIR PRN 01/02 1545 AC IM 02/01 1544 Local Anesthetics (Parenteral) Sig/Dorothy Start time Last Medication Dose Route Stop Time Status Admin Lidocaine 1 PATCH DAILY 01/05 0900 AC 01/07 TOPICAL 02/04 0859 0839 Respiratory Tract Agents Sig/Dorothy Start time Last Medication Dose Route Stop Time Status Admin Acetylcysteine 200 MG RTQ8H 01/04 1600 DC 01/07 NEB 02/03 1559 0816 Vitamins Sig/Dorothy Start time Last Medication Dose Route Stop Time Status Admin Cyanocobalamin 500 MCG DAILY 01/05 09 AC 12/15 5 PO 02/04 0859 0839 Status post: 4V CABG and ALAA Physical Exam General appearance: alert, awake, oriented Neck: full range of motion, non-tender, supple/n o meningismus, no bruit/NL carotids, no JVD Cardiovascular: CV assessment: pedal edema, regular rate and rh ythm Respiratory: decreased breath sounds, on oxygen, no distress Abdomen: non-tender, obese Genitourinary: no urinary catheter Lower extremity: LE assessment: edema Musculoskeletal: normal inspection Neuro/ASBESTOS CLOTH INSPECTOR: alert, oriented X 3, normal speech Skin: dry Psychiatry: normal affect, normal mood Results Findings/Data: Laboratory Tests 01/07 1229 Chemistry Sodium (134 - 147 mEq/L) 134 Potassium (3.4 - 5.0 mEq/L) 4.1 Chloride (100 - 108 mEq/L) 101 Carbon Dioxide (21 - 33 mEq/l) 27 Anion Gap (0 - 20) 10 BUN (7 - 18 mg/dL) 11 Creatinine (0.6 - 1.3 mg/dL) 0.8 Glomerular Filtr Rate (90 - 95) 105.8 H Glucose (70 - 110 mg/dL) 147 H Calcium (8.0 - 10.5 mg/dL) 8.5 Magnesium (1.80 - 2.40 mg/dL) 1.91 Laboratory Tests 01/07 1229 Hematology WBC (4.5 - 11.0 x10 3/uL) 10.3 RBC (4.00 - 5.60 x10 6/uL) 3.78 L Hgb (12.5 - 16.9 g/dL) 11.8 L Hct (37.5 - 50.7 %) 35.9 L MCV (81.0 - 99.0 fL) 95.0 MCH (27.0 - 33.0 pg) 31.2 MCHC (33.0 - 37.0 g/dL) 32.9 L RDW (11.5 - 14.5 %) 13.0 Plt Count (150 - 400 x10 3/uL) 291 MPV (7.0 - 9.0 fL) 9.4 H Neut % (Auto) (56.0 - 77.0 %) 66.9 Lymph % (Auto) (14.0 - 32.0 %) 17.1 [place] % (Auto) (4.8 - 9.0 %) 11.6 H Eos % (Auto) (0.3 - 3.7 %) 3.1 Baso % (Auto) (0.0 - 2.0 %) 0.4 Neut # (Auto) (2.0 - 7.6 x10 3/uL) 6.90 Lymph # (Auto) (1.0 - 3.8 x10 3/uL) 1.76 [place] # (Auto) (0.1 - 0.8 x10 3/uL) 1.20 H Eos # (Auto) (0.0 - 0.2 x10 3/uL) 0.32 H Baso # (Auto) (0.0 - 0.2 x10 3/uL) 0.04 Abs Immat Gran (auto) (0.00 - 0.03 x10 3/uL) 0. 09 H Add Manual Diff NO Immature Gran % (0.0 - 2.0 %) 0.9 Nucleated RBC % (0 - 0 %) 0.0 Nucleated RBCs # (Man) (0.0 - 0.1 x10 3/uL) 0.0 0 Laboratory Tests 01/07 1229 Chemistry Magnesium (1.80 - 2.40 mg/dL) 1.91 Radiology data: Recent Impressions: RADIOLOGY - XR CHEST 1 V 01/08 728 Report Impression - Status: SIGNED Entered: 01/07/2023906 IMPRESSION: Stable chest. Impression By: [email or web address] - Pk Obregon M.D. Results: labs reviewed, vital signs reviewed, vi brandon signs stable Treatment Prophylaxis Treatment Prophylaxis Drain(s)/tube(s): Drain(s)/tube(s): chest, urinary catheter Diagnosis, Assessment Plan Free Text DxA P Notes Free Text DxA P Notes: 52-year-old male wi th medical history of hypertension, lifelong smoker, alcohol use who presents to ED at [facility] with back pain and chest pain. He was ruled in for non-STEMI. Taken to [facility] where he was found to have multivessel CAD with tight left main. Patient is transferred here for CABG evaluation. He is not having active chest pain. His main complaint is back pain and headache. His blood pressure is markedly elevated at the time of visit, 208/111 mmHg. 1. NSTEMI/multivessel CAD with left main disease s/p 4V CABG and ALAA awake and alert, on nasal cannula on DAP, BB, statin postop care per CTS Diuresis per CTS 2. Hypertension BP stable Continue beta-alejandra 3. Tobacco and alcohol use Counseled cessation pulmo following 4. Chronic back pain. manage per primary team Doing well. 01/07/23; S/P CABG x 4 (BURDICK-LAD, SVG-Ramus, SVG-OM, SVG-PDA) 01/02/23 ALAA Posterior pericartiotomy PAF ON AMIOD PO S/P KAYLEY LIGATION OPTIMIZE BP CONTROL ECHO TELE: NSR AMBULATE Electronically Signed by Jadyn Phillip MD on 0 01/08/23 at 1116 RPT #:[id number] END OF REPORT 2023-01-07 13:31:00-00:00 [facility] Progress Note REPORT#:[id number] REPORT STATUS: Signed DATE:01/07/23 TIME: 1331 PATIENT: SHEKHAR LOZADA UNIT #: [id number] ROOM/BED: [place] [address] : 69 AGE: 52 SEX: M ATTEND: Sheila Crabtree MD ADM AUTHOR: Virgilio Royal MD * ALL edits or amendments must be made on the el [employer]/computer document * Subjective Chief complaint: He is feeling better. On RA No SOB, CP, f/c/r, N/V/D. HPI: This is a 52-year-old gentle man with a past medical history of hypertension who initially presented to an outside hospital with complaints of back pain, and chest pains. He started to d evelop chest pains located midsternal for the past 2 weeks. He describes the ches t pains as a heaviness, squeezing sensation. Patient underwent left heart cathete rization by Dr. Felton at [facility] this showed multivessel CAD with a 90% LAD, 60-70% le ft main, 70-80% circumflex. An echocardiogram was also done at [facility] on 12/28/2022. This showed a normal left ventricular ejection fractio n of 55-60%, moderate LVH, mild mitral regurgitation, grade 1 diast olic dysfunction. He admits to smoking 1-2 times per week. Does admit to alcohol 1-2 times per week. We were consulted for the management of COPD/emp hysema. Objective General VS/I O: Last Documented: Result Date Time Pulse Ox 95 01/07 1159 B/P 132/73 01/07 1159 B/P Mean 0.0 01/07 1159 O2 Delivery Nasal cannula 01/07 1159 Temp 97.7 01/07 1159 Pulse 74 01/07 1159 Resp 16 01/07 1159 O2 Flow Rate 2 01/05 1945 FiO2 40 01/03 2032 24 hour I O ending at 0700: 01/07 0700 01/06 1900 Intake Total 600 Output Total 550 Balance 50 Intake, Oral 600 Number 1 Bowel Movements Output, Urine 550 Patient 111 kg Weight Weight Standing scale Measurement Method PATIENT WEIGHT: Weight (lb): 244 Weight (oz): 11.41 Weight (kg): 111.000 Medications: Active Meds + DC'd Last 24 Hrs Furosemide (LASIX 20MG INJ) 20 MG ONCE ONE IV (D C) Amlodipine Besylate (NORVASC) 2.5 MG DAILY PO Metoprolol Tartrate (LOPRESSOR) 25 MG Q12HR PO Ipratropium Afton (ATROVENT) 500 MCG RTQ2H PRN PRN INH Cyanocobalamin (Vitamin B-12 500 mcg tab) 500 MC G DAILY PO Ferrous Sulfate (FERROUS SULFATE) 325 MG DAILY P O Lidocaine (LIDODERM) 1 PATCH DAILY TOPICAL Acetylcysteine (MUCOMYST FOR RT) 200 MG RTQ8H NE B Bisacodyl (DULCOLAX) 10 MG ONCE PRN RECTAL Atorvastatin Calcium (LIPITOR) 40 MG 2100 PO Clopidogrel Bisulfate (Plavix) 75 MG DAILY PO Polyethylene Glycol (MIRALAX) 17 GM DAILY PO Pantoprazole (PROTONIX) 40 MG DAILY@0600 PO Aspirin (ASPIRIN) 81 MG DAILY PO Amiodarone HCl (CORDARONE) 200 MG TID PO Docusate Sodium (COLACE) 100 MG BID PO Gabapentin (NEURONTIN) 200 MG BID PO (DC) Metoprolol Tartrate (LOPRESSOR) 12.5 MG Q12HR PO (DC) Sennosides (Senna Lax 8.6 MG TABLET) 17.2 MG BED TIME PO Acetaminophen (TYLENOL) 650 MG Q4H PRN PRN PO Acetaminophen (TYLENOL) 650 MG Q4H PRN PRN RECTA L Dextrose/Water (DEXTROSE 10% IN WATER) 125 ML DIR PRN IV (CKD) Dextrose/Water (DEXTROSE 10% IN WATER) 250 ML DIR PRN IV (CKD) Glucagon (GLUCAGON) 1 MG ASDIR PRN IM Ipratropium Afton (ATROVENT) 500 MCG RTQ4H INH Magnesium Sulfate (MAGNESIUM SULFATE 4GM/SWFI 10 0ML) 100 ML ASDIR PRN IV Magnesium Sulfate (MAGNESIUM SULFATE 2GM/SWFI 50 ML) 50 ML ASDIR PRN IV Magnesium Sulfate/Dextrose (MAGNESIUM SULFATE 1G M/D5W 100ML) 100 ML ASDIR PRN IV Ondansetron HCl (ZOFRAN) 4 MG Q6H PRN PRN IV Oxycodone HCl (ROXICODONE) 5 MG Q4H PRN PRN PO Oxycodone HCl (ROXICODONE) 10 MG Q4H PRN PRN PO Sodium Chloride (SODIUM CHLORIDE) 20 ML ASDIR IV Dietitian nutrition assessment The data set between the solid lines has been im ported from the dietitian's assessment. BMI Calculated: 40.7 Nutrition related diagnosis: Nutrition diagnosis details: Nutrition problem: Altered nutrition labs Nutrition etiology: Excessive oral intake Nutrition signs and symptoms: ELEVATED TRIGLYCER IDES , CHOL/HDL RATIO Nutrition prescription: 1. CONTINUE CARDIAC DIET Dietitian name: Vida Garcia RD, LD Assessment completed: 01/03/23 Physical Exam General appearance: alert, awake, oriented, no a cute distress Head/eyes: atraumatic, normocephalic Neck: no JVD Cardiovascular: normal heart sounds, normal S1/S 2, regular rate rhythm Respiratory/chest: crackles (basal), aerating we ll, symmetric expansion, no distress Abdomen: soft, non-tender, no distention Extremities: no edema Musculoskeletal: normal inspection Neuro/ASBESTOS CLOTH INSPECTOR: alert, oriented X 3, CNII-XII intact, no motor deficits Skin: dry, intact Psychiatry: normal affect, normal mood Treatment Prophylaxis Treatment Prophylaxis Oxygen: room air Diagnosis, Assessment Plan Free Text A P: Assessment and Plan: - Dyspnea due to multivessel CAD and emphysema. - Emphysema/COPD. - Multivessel CAD. - Hx of HTN. - Ex-smoker: quit 2 months ago. - 8 mm pulm nodule - S/p CABG x 4 (BURDICK-LAD, SVG-Ramus, SVG-OM, SVG -PDA), ALAA, EVH (RGSV) and Posterior pericardiotomy. - Morbid obesity Plan: I/S d/c mucomyst BD PRN f/u in the pulm clinic for PFT and NPSG Needs f/u CT chest w/out contrast after 6 month for the pulm nodule Electronically Signed by Virgilio Royal MD on at 1339 RPT #:[id number] END OF REPORT 2023-01-07 11:59:00-00:00 [facility] RE[facility]#:[id number] REPORT STATUS: Signed DATE:01/07/23 TIME: 1159 PATIENT: SHEKHAR LOZADA UNIT #: [id number] ROOM/BED: [place] [address] : 69 AGE: 52 SEX: M ATTEND: Sheila Crabtree MD ADM AUTHOR: Caro Bingham * ALL edits or amendments must be made on the el [employer]/computer document * General Post-op: day 5 Status post: 01/02/23 CABG x 4 (BURDICK-LAD, SVG-Ramus, SVG-OM, SVG-PDA) ALAA EVH (RGSV) Posterior pericartiotomy Subjective Chief complaint: s/p CABG Review of Systems Constitutional: Denies: fever, malaise. Skin: Denies: rash. Allergy/Immun: Denies: anaphylaxis, hives, itching. Eyes: Denies: redness, discharge, swelling. ENT: Denies: ear drainage, ear ringing. Respiratory: Denies: SOB, wheezing. Cardiovascular: Denies: chest pain, KISER (dyspnea on exertion), e sushila. GI: Denies: constipation, diarrhea. : Denies: hematuria, nocturia. Musculoskeletal: Denies: joint pain, joint swelling. Heme: Denies: bleeding, bruising. Endocrine: Denies: polydipsia, polyuria. Neuro: Denies: confusion, dizziness. All systems rev neg: except as marked Objective General VS/I O Vital Signs Date Temp Pulse Resp B/P B/P Mean Pulse Ox FiO2 01/06-01/07 97.7-99.0 74-91 12-18 132-191/73-100 0.0-123.2 93-100 Last Documented: Result Date Time Pulse Ox 95 01/07 1159 B/P 132/73 01/07 1159 B/P Mean 0.0 01/07 1159 O2 Delivery Nasal cannula 01/07 1159 Temp 97.7 01/07 1159 Pulse 74 01/07 1159 Resp 16 01/07 1159 O2 Flow Rate 2 01/05 1945 FiO2 40 01/03 2032 24 hour I O ending at 0700: 01/07 0700 01/06 1900 Intake Total 600 Output Total 550 Balance 50 Intake, Oral 600 Number 1 Bowel Movements Output, Urine 550 Patient 245 lb Weight Weight Standing scale Measurement Method PATIENT WEIGHT: Weight (lb): 244 Weight (oz): 11.41 Weight (kg): 111.000 Physical Exam General appearance: alert, oriented, pleasant, m ental status normal, no respiratory distress Wound/incision: Location: sternal Site condition: dressing clean dry, dressing in tact HEENT: anicteric, mucosal membranes moist Neck: full range of motion, non-tender Cardiovascular: BP/pulses equal bilat., regular rate rhythm Respiratory: crackles, decreased breath sounds, aerating well, symmetric expansion, no distress Abdomen: soft, non-tender Extremities: dry, moves all Musculoskeletal: full range of motion, painless range of motion Neuro/ASBESTOS CLOTH INSPECTOR: alert, oriented X 3, normal speech, n o motor deficits Skin: dry, intact Psychiatry: normal affect, normal mood Current Medications Medications: Active Meds + DC'd Last 24 Hrs Amlodipine Besylate (NORVASC) 2.5 MG DAILY PO Metoprolol Tartrate (LOPRESSOR) 25 MG Q12HR PO Ipratropium Afton (ATROVENT) 500 MCG RTQ2H AZ N PRN INH Cyanocobalamin (Vitamin B-12 500 mcg tab) 500 MC G DAILY PO Ferrous Sulfate (FERROUS SULFATE) 325 MG DAILY P O Lidocaine (LIDODERM) 1 PATCH DAILY TOPICAL Acetylcysteine (MUCOMYST FOR RT) 200 MG RTQ8H NE B Bisacodyl (DULCOLAX) 10 MG ONCE PRN RECTAL Atorvastatin Calcium (LIPITOR) 40 MG 2100 PO Clopidogrel Bisulfate (Plavix) 75 MG DAILY PO Polyethylene Glycol (MIRALAX) 17 GM DAILY PO Pantoprazole (PROTONIX) 40 MG DAILY@0600 PO Aspirin (ASPIRIN) 81 MG DAILY PO Amiodarone HCl (CORDARONE) 200 MG TID PO Docusate Sodium (COLACE) 100 MG BID PO Gabapentin (NEURONTIN) 200 MG BID PO (DC) Metoprolol Tartrate (LOPRESSOR) 12.5 MG Q12HR PO (DC) Sennosides (Senna Lax 8.6 MG TABLET) 17.2 MG BED TIME PO Acetaminophen (TYLENOL) 650 MG Q4H PRN PRN PO Acetaminophen (TYLENOL) 650 MG Q4H PRN PRN RECTA L Dextrose/Water (DEXTROSE 10% IN WATER) 125 ML DIR PRN IV (CKD) Dextrose/Water (DEXTROSE 10% IN WATER) 250 ML DIR PRN IV (CKD) Glucagon (GLUCAGON) 1 MG ASDIR PRN IM Ipratropium Afton (ATROVENT) 500 MCG RTQ4H INH Magnesium Sulfate (MAGNESIUM SULFATE 4GM/SWFI 10 0ML) 100 ML ASDIR PRN IV Magnesium Sulfate (MAGNESIUM SULFATE 2GM/SWFI 50 ML) 50 ML ASDIR PRN IV Magnesium Sulfate/Dextrose (MAGNESIUM SULFATE 1G M/D5W 100ML) 100 ML ASDIR PRN IV Ondansetron HCl (ZOFRAN) 4 MG Q6H PRN PRN IV Oxycodone HCl (ROXICODONE) 5 MG Q4H PRN PRN PO Oxycodone HCl (ROXICODONE) 10 MG Q4H PRN PRN PO Sodium Chloride (SODIUM CHLORIDE) 20 ML ASDIR IV Results Radiology data: Recent Impressions: RADIOLOGY - XR CHEST 1 V 01/07 0728 Report Impression - Status: SIGNED Entered: 01/07/2023 0907 IMPRESSION: Stable chest. Impression By: Katlin - Pk Obregon M.D. Quality: Trauma Gen Surg Advanced Care Plan 65 or Older Discussed with: patient Diagnosis, Assessment Plan Hospital course to date: This is a 52-year-old gentle man with a past medical history of hypertension who initially presented to an outside hospital with complaints of back pain, and chest pains. He reports the back pain as mid upper back pain that occurred over the last couple of weeks. Usually pain is worse with gonzalez ging position The patient reports he start ed to develop chest pains located midsternal for the past 2 weeks. He denies any radiating symptoms. Describes the chest pains as a heaviness, squeez ing sensation. Denies any syncope, palpitations. Denies any nausea vomitin g or diaphoresis. Patient underwent left heart catheterization by Dr. Felton at [facility] this showed multi vessel CAD with a 90% LAD, 60-70% left main, 70-80% circumflex. An echocardiogram was also done at [facility] on 12/28/2022. This showed a normal left ventricular ejection fractio n of 55-60%, moderate LVH, mild mitral regurgitation, grade 1 diastolic dysfunction. The patient does admit to sm oking 1-2 times per week. Does admit to alcohol 1-2 times per week. Patient does have a strong famil y history of coronary artery disease in his father and his grandmother. Denies any surgical history, Review of the records from [facility] show the mark obrien was admitted with a troponin peak of 483. Hemoglobin A1c was noted t o be 5.5. Renal function appears normal. Patient was transferred to [facility] for khai luation for coronary bypass graft surgery. Hemoglobin A1c noted to be 5.[address] [facility] Assessment/plan 1.coronary artery disease Begin work-up for coronary artery bypass graft with appropriate studies. 2. Hypertension 3. Chest pains Patient has been seen and examined by Dr. Jose fatima. Work-up underway for coronary artery bypass graft surgery. Further recommendations to follow 12/31/22 Patient resting comfortable denies pain. AAOx3 Respiratory: 100% oxygen on room air. Cardiac: Remains sinus rhythm GI: Denies constipation diarrhea positive bowel movement. : Voiding well. 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 Likely consider coronary artery bypass surgery e preet next week. Patient was seen and examine d by Dr. Crabtree. Further recommendations to follow 01/01 Patient resting comfortable denies pain. AAOx3 Respiratory: 100% oxygen on room air. Cardiac: Remains sinus rhythm GI: Denies constipation or diarrhea, positive ramon wel movement. : Voiding well. 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 Pulmonary consulted for history of smoking and a bnormal CT suggestive of emphysema. PFT hopefully to be completed in the morning. STS 0.39% Patient was seen and examine d by Dr. Crabtree. Further recommendations to follow Coronary artery bypass graft surgery was discuss ed with the patient. The risk of the operation including , bleeding, infe ction, heart attack, stroke, pneumonia, renal failure, dialysis, prol onged ICU stay, car tracheostomy, need for long-term rehabilitation were all discussed with the patient. Patient's questions were answered and the patient agreed t o proceed with surgery. 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 Crabtree, discussed plan of care with multidisciplinary team. 01/04 Patient is alert and oriented, up in the recline r, complaining of back pain Left pleural chest tube discontinued to minimize pain and facilitate deep breathing Multimodal pain control Chest x-ray showed atelectasis. Wean O2 as delvis ated, encourage I-S and ambulation Pulmonary toilet, Mucomyst Discontinue central line Normal renal function, discontinue Siddiqui cathete r Glycemic control Keep in CVICU for close monitoring Patient seen and plan reviewed with the Bro multidisciplinary team 01/05 Overall doing better today, pain improved Discontinue chest tube Chest x-ray reviewed. Gentle diuresis with Lasix 20 mg IV once Encourage I-S and mobilization PT/OT Transfer to intermediate care Patient seen and plan reviewed with the Bro multidisciplinary team 01/06/23 POD 4 Patient recovering well, no complaints. 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 Crabtree and plan of care d iscussed with team. 01/07 Blood pressure on the high side. Increase metopr olol to 5 mg twice daily Chest x-ray reviewed. Respiratory status stable on room air Labs pending. Gentle diuresis Discontinue pacing wires before discharge Encourage I-S and mobilization Anticipate discharge in the next 24 to 48 hours if remains in stable condition. Pt seen and plan reviewed with Dr Crabtree at 1208 at 1808 RPT #:[id number] END OF REPORT 2023-01-06 15:14:00-00:00 [facility] Cardiothoracic Surgery Prog REPORT#:[id number] REPORT STATUS: Signed DATE:01/06/23 TIME: 1514 PATIENT: SHEKHAR LOZADA UNIT #: [id number] ROOM/BED: [place] [address] : 69 AGE: 52 SEX: M ATTEND: Sheila Crabtree MD ADM AUTHOR: Caro Bingham * ALL edits or amendments must be made on the [employer]/computer document * General Post-op: day 4 Status post: 01/02/23 CABG x 4 (BURDICK-LAD, SVG-Ramus, SVG-OM, SVG-PDA) ALAA EVH (RGSV) Posterior pericartiotomy Subjective Chief complaint: Multi-vessel CAD- s/p CABG Review of Systems Constitutional: Denies: fever, malaise. Skin: Denies: rash. Allergy/Immun: Denies: anaphylaxis, hives, itching. Eyes: Denies: redness, discharge, swelling. ENT: Denies: ear drainage, ear ringing. Respiratory: Denies: SOB, wheezing. Cardiovascular: Denies: chest pain, KISER (dyspnea on exertion), e sushila. GI: Denies: constipation, diarrhea. : Denies: hematuria, nocturia. Musculoskeletal: Denies: joint pain, joint swelling. Heme: Denies: bleeding, bruising. Endocrine: Denies: polydipsia, polyuria. Neuro: Denies: confusion, dizziness. All systems rev neg: except as marked Objective General VS/I O Last Documented: Result Date Time Pulse Ox 94 01/06 1102 O2 Delivery Room air 01/06 1102 B/P 113/68 01/06 0957 B/P Mean 0.0 01/06 957 Temp 99.1 01/06 09 Pulse 78 01/06 0957 Resp 18 01/06 0957 O2 Flow Rate 2 01/05 1945 FiO2 40 01/022 24 hour I O ending at 0700: 01/06 0700 01/05 1900 Intake Total 340.00 740 Output Total 1200 1200 Balance -860.00 -460 Intake, IV 100.00 Intake, Oral 240 740 Number Voids 4 Output, Urine 1200 1200 Patient 245 lb Weight Weight Standing scale Measurement Method PATIENT WEIGHT: Weight (lb): 244 Weight (oz): 11.41 Weight (kg): 111.000 Dietitian Nutrition assessment The data set between the solid lines has been im ported from the dietitian's assessment. BMI Calculated: 40.7 Nutrition related diagnosis: Nutrition diagnosis details: Nutrition problem: Altered nutrition labs Nutrition etiology: Excessive oral intake Nutrition signs and symptoms: ELEVATED TRIGLYCER IDES , CHOL/HDL RATIO Nutrition prescription: 1. CONTINUE CARDIAC T Dietitian name: Vida Garcia, DANAE, LD Assessment completed: 01/03/23 Physical Exam General appearance: alert, awake, oriented Wound/incision: Location: sternal Site condition: dressing clean dry, dressing in tact HEENT: anicteric, mucosal membranes moist Neck: full range of motion, non-tender Cardiovascular: BP/pulses equal bilat., regular rate rhythm Respiratory: crackles, decreased breath sounds, aerating well, symmetric expansion, no distress Abdomen: soft, non-tender Extremities: dry, moves all Musculoskeletal: full range of motion, painless range of motion Neuro/ASBESTOS CLOTH INSPECTOR: alert, oriented X 3, normal speech, n o motor deficits Skin: dry, intact Psychiatry: normal affect, normal mood Current Medications Medications: Active Meds + DC'd Last 24 Hrs Furosemide (LASIX 20MG INJ) 20 MG ONCE ONE IV (D C) Lactulose (LACTULOSE) 20 GM ONCE ONE PO (DC) Ipratropium Afton (ATROVENT) 500 MCG RTQ2H PRN PRN INH Cyanocobalamin (Vitamin B-12 500 mcg tab) 500 MC G DAILY PO Ferrous Sulfate (FERROUS SULFATE) 325 MG DAILY P O Lidocaine (LIDODERM) 1 PATCH DAILY TOPICAL Acetylcysteine (MUCOMYST FOR RT) 200 MG RTQ8H NE B Bisacodyl (DULCOLAX) 10 MG ONCE PRN RECTAL Atorvastatin Calcium (LIPITOR) 40 MG 2100 PO Clopidogrel Bisulfate (Plavix) 75 MG DAILY PO Polyethylene Glycol (MIRALAX) 17 GM DAILY PO Pantoprazole (PROTONIX) 40 MG DAILY@0600 PO Aspirin (ASPIRIN) 81 MG DAILY PO Amiodarone HCl (CORDARONE) 200 MG TID PO Docusate Sodium (COLACE) 100 MG BID PO Gabapentin (NEURONTIN) 200 MG BID PO Metoprolol Tartrate (LOPRESSOR) 12.5 MG Q12HR PO (DA) Sennosides (Senna Lax 8.6 MG TABLET) 17.2 MG BED TIME PO Acetaminophen (TYLENOL) 650 MG Q4H PRN PRN PO Acetaminophen (TYLENOL) 650 MG Q4H PRN PRN RECT AL Calcium Chloride (CALCIUM CHLORIDE) 1 GM ASDIR P RN IV (DC) Dextrose/Water (DEXTROSE 10% IN WATER) 125 ML DIR PRN IV (CKD) Dextrose/Water (DEXTROSE 10% IN WATER) 250 ML DIR PRN IV (CKD) Epinephrine (ADRENALIN CHLORIDE) 4 MG ASDIR IV ( DC) Dextrose/Water (DEXTROSE 5% WATER) 246 ML Glucagon (GLUCAGON) 1 MG ASDIR PRN IM Ipratropium [place]fton (ATROVENT) 500 MCG RTQ4H INH Magnesium Sulfate (MAGNESIUM SULFATE 4GM/SWFI 10 0ML) 100 ML ASDIR PRN IV Magnesium Sulfate (MAGNESIUM SULFATE 2GM/SWFI 50 ML) 50 ML ASDIR PRN IV Magnesium Sulfate/Dextrose (MAGNESIUM SULFATE 1G M/D5W 100ML) 100 ML ASDIR PRN IV Nitroglycerin/Dextrose (NITROGLYCERIN 50,000MCG/ D5W 250ML) 250 ML ASDIR IV (DC) Norepinephrine Bitartrate (NOREPINEPHRINE 8 MG/N S 250 ML) 250 ML TITRATE IV (DC) Ondansetron HCl (ZOFRAN) 4 MG Q6H PRN PRN IV Oxycodone HCl (ROXICODONE) 5 MG Q4H PRN PRN PO Oxycodone HCl (ROXICODONE) 10 MG Q4H PRN PRN PO Potassium Chloride (KCL 20MEQ/SWFI 100ML) 100 ML ASDIR PRN IV (DC) Sodium Bicarbonate (SODIUM BICARBONATE) 50 MEQ A SDIR PRN IV (DC) Acetaminophen (TYLENOL EXTRA STRENGTH) 1,000 MG PREOP ONCALL PO (DC) Gabapentin (NEURONTIN) 200 MG PREOP ONCALL PO (D C) Lactated Ringer's (LACTATED RINGERS) 1,000 ML AZ EOP ONCALL IV (DC) Lidocaine HCl (LIDOCAINE HCL/PF) 2 ML PREOP ONCA LL LOCAL (DC) Lidocaine HCl (LIDOCAINE HCL/PF) 2 ML PREOP ONCA LL LOCAL (DC) Sodium Chloride (SODIUM CHLORIDE 0.9%) 500 ML AZ EOP ONCALL IV (DC) Sodium Chloride (SODIUM CHLORIDE) 5 ML ASDIR PRN IV (DC) Sodium Chloride (SODIUM CHLORIDE) 10 ML ASDIR AZ N IV (DC) Sodium Chloride (SODIUM CHLORIDE 0.9%) 250 ML DIR PRN IV (DC) Sodium Chloride (SODIUM CHLORIDE) 20 ML ASDIR IV Results Findings/Data: Laboratory Tests 01/06 01/06 0813 0359 Blood Gas Puncture Site Art Line R Radial O2 Saturation (90 - 100 %) 99.6 93.8 ABG pH (7.35 - 7.45) 7.408 7.423 ABG pCO2 (35.0 - 45 mmHg) 40.3 43.6 ABG pO2 (80 - 100.0 mmHg) 188.4 H 69.1 L ABG PO2/FiO2 Ratio (mm/Hg) 523.33 ABG HCO3 (22.0 - 26.0 MMOL/L) 25.2 28.5 *H ABG Total CO2 26.4 29.8 ABG Base Excess (-4.0 - 4.0 MMOL/L) 0.7 4.1 H ABG Hematocrit (37.5 - 50.7 %) 25 L ABG Hemoglobin (12.5 - 16.9 G/DL) 8.4 L Michael Test Positive Sodium (134 - 147 mmol/L) 136 Potassium (3.4 - 5.0 mmol/L) 3.5 Chloride (100 - 108 mmol/L) 99 L Ionized Calcium (1.12 - 1.32 MMOL/L) 1.14 Lactic Acid (0.9 - 1.7 mmol/l) 2.4 H Temperature (F) 100.4 O2 Delivery Device Cannula Cannula FiO2 (%) 36 Laboratory Tests 01/06 01/06 0813 0250 Chemistry Sodium (134 - 147 mEq/L) 139 Potassium (3.4 - 5.0 mEq/L) 4.2 Chloride (100 - 108 mEq/L) 105 Carbon Dioxide (21 - 33 mEq/l) 28 Anion Gap (0 - 20) 10 BUN (7 - 18 mg/dL) 14 Creatinine (0.6 - 1.3 mg/dL) 0.8 POC Creatinine (0.8 - 1.3 mg/dL) 0.5 L Glomerular Filtr Rate (90 - 95) 105.8 H Glucose (70 - 110 mg/dL) 137 H POC Glucose (mg/dL) (70 - 110 MG/DL) 171 H Calcium (8.0 - 10.5 mg/dL) 8.3 Magnesium (1.80 - 2.40 mg/dL) 2.03 Laboratory Tests 01/06 0250 Hematology WBC (4.5 - 11.0 x10 3/uL) 10.1 RBC (4.00 - 5.60 x10 6/uL) 3.37 L Hgb (12.5 - 16.9 g/dL) 10.7 L Hct (37.5 - 50.7 %) 32.1 L MCV (81.0 - 99.0 fL) 95.3 MCH (27.0 - 33.0 pg) 31.8 MCHC (33.0 - 37.0 g/dL) 33.3 RDW (11.5 - 14.5 %) 13.2 Plt Count (150 - 400 x10 3/uL) 167 MPV (7.0 - 9.0 fL) 10.1 H Neut % (Auto) (56.0 - 77.0 %) 69.0 Lymph % (Auto) (14.0 - 32.0 %) 15.8 [place] % (Auto) (4.8 - 9.0 %) 12.4 H Eos % (Auto) (0.3 - 3.7 %) 1.7 Baso % (Auto) (0.0 - 2.0 %) 0.3 Neut # (Auto) (2.0 - 7.6 x10 3/uL) 6.98 Lymph # (Auto) (1.0 - 3.8 x10 3/uL) 1.60 [place] # (Auto) (0.1 - 0.8 x10 3/uL) 1.25 H Eos # (Auto) (0.0 - 0.2 x10 3/uL) 0.17 Baso # (Auto) (0.0 - 0.2 x10 3/uL) 0.03 Abs Immat Gran (auto) (0.00 - 0.03 x10 3/uL) 0. 08 H Add Manual Diff NO Immature Gran % (0.0 - 2.0 %) 0.8 Nucleated RBC % (0 - 0 %) 0.0 Nucleated RBCs # (Man) (0.0 - 0.1 x10 3/uL) 0.0 0 Radiology data: Recent Impressions: RADIOLOGY - XR CHEST 1 V 01/06 0458 Report Impression - Status: SIGNED Entered: 01/06/2023 0805 IMPRESSION: 1. Improvement of bilateral upper lobe and right basilar opacity since the most recent exam. 2. Dense opacification of the left lung base, mi ldly increased. Impression By: [email or web address] - Pk Obregon M.D. Results: labs reviewed, vital signs stable, ryth m personally rev'd, x-ray personally reviewed, current med profile rev'd Treatment Prophylaxis Treatment Prophylaxis Oxygen: nasal cannula Quality: Trauma Gen Surg Advanced Care Plan 65 or Older Discussed with: patient Diagnosis, Assessment Plan Hospital course to date: This is a 52-year-old gentle man with a past medical history of hypertension who initially presented to an outside hospital with complaints of back pain, and chest pains. He reports the back pain as mid upper back pain that occurred over the last couple of weeks. Usually pain is worse with gonzalez ging position The patient reports he start ed to develop chest pains located midsternal for the past 2 weeks. He denies any radiating symptoms. Describes the chest pains as a heaviness, squeez ing sensation. Denies any syncope, palpitations. Denies any nausea vomitin g or diaphoresis. Patient underwent left heart catheterization by Dr. Felton at [facility] this showed multi vessel CAD with a 90% LAD, 60-70% left main, 70-80% circumflex. An echocardiogram was also done at [facility] on 12/28/2022. This showed a normal left ventricular ejection fractio n of 55-60%, moderate LVH, mild mitral regurgitation, grade 1 diastolic dysfunction. The patient does admit to sm oking 1-2 times per week. Does admit to alcohol 1-2 times per week. Patient does have a strong famil y history of coronary artery disease in his father and his grandmother. Denies any surgical history, Review of the records from [facility] show the p atient was admitted with a troponin peak of 483. Hemoglobin A1c was noted t o be 5.5. Renal function appears normal. Patient was transferred to [facility] for khai ation for coronary bypass graft surgery. Hemoglobin A1c noted to be 5.[address] [facility] Assessment/plan 1.coronary artery disease Begin work-up for coronary artery bypass graft with appropriate studies. 2. Hypertension 3. Chest pains Patient has been seen and examined by Dr. Jose fatima. Work-up underway for coronary artery bypass graft surgery. Further recommendations to follow 12/31/22 Patient resting comfortable denies pain. AAOx3 Respiratory: 100% oxygen on room air. Cardiac: Remains sinus rhythm GI: Denies constipation diarrhea positive bowel movement. : Voiding well. 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 Likely consider coronary artery bypass surgery e preet next week. Patient was seen and examine d by Dr. Crabtree. Further recommendations to follow 01/01 Patient resting comfortable denies pain. AAOx3 Respiratory: 100% oxygen on room air. Cardiac: Remains sinus rhythm GI: Denies constipation or diarrhea, positive ramon wel movement. : Voiding well. 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 Pulmonary consulted for history of smoking and a bnormal CT suggestive of emphysema. PFT hopefully to be completed in the morning. STS 0.39% Patient was seen and examine d by Dr. Crabtree. Further recommendations to follow Coronary artery bypass graft surgery was discuss ed with the patient. The risk of the operation including , bleeding, infe ction, heart attack, stroke, pneumonia, renal failure, dialysis, prol onged ICU stay, car tracheostomy, need for long-term rehabilitation were all discussed with the patient. Patient's questions were answered and the patient agreed t o proceed with surgery. 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 Crabtree, discussed plan of care with multidisciplinary team. 01/04 Patient is alert and oriented, up in the recline r, complaining of back pain Left pleural chest tube discontinued to minimize pain and facilitate deep breathing Multimodal pain control Chest x-ray showed atelectasis. Wean O2 as delvis ated, encourage I-S and ambulation Pulmonary toilet, Mucomyst Discontinue central line Normal renal function, discontinue Siddiqui cathete r Glycemic control Keep in CVICU for close monitoring Patient seen and plan reviewed with the Bro multidisciplinary team 01/05 Overall doing better today, pain improved Discontinue chest tube Chest x-ray reviewed. Gentle diuresis with Lasix 20 mg IV once Encourage I-S and mobilization PT/OT Transfer to intermediate care Patient seen and plan reviewed with the Bro multidisciplinary team 01/06/23 POD 4 Patient recovering well, no complaints. 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 Crabtree and plan of care d iscussed with team. Plan discussed with: patient , admitting physician, consultants, nurse, interdisc care team at 1551 at 1808 RPT #:[id number] END OF REPORT 2023-01-06 10:48:00-00:00 [facility] Cardiology Progress Note REPORT#:[id number] REPORT STATUS: Signed DATE:01/06/23 TIME: 1048 PATIENT: SHEKHAR LOZADA UNIT #: [id number] ROOM/BED: [place] [address] : 69 AGE: 52 SEX: M ATTEND: Sheila Crabtree MD ADM AUTHOR: Juanis Blevins ACNP * ALL edits or amendments must be made on the [employer]/computer document * Subjective Patient reports: No: complaints. Objective General VS/I O: 24 hour I O ending at 0700: 01/06 0700 01/05 1900 Intake Total 340.00 740 Output Total 1200 1200 Balance -860.00 -460 Intake, IV 100.00 Intake, Oral 240 740 Number Voids 4 Output, Urine 1200 1200 Patient 111 kg Weight Weight Standing scale Measurement Method Vital Signs: Date Time Temp Pulse Resp B/P B/P Pulse O2 O2 F low FiO2 Mean Ox Delivery Rate 01/06 0957 37.3 78 18 113/68 0.0 93 01/06 0700 36.9 76 25 92 01/06 0600 74 19 96 01/06 0553 77 23 127/80 97 93 01/06 0500 73 12 113/59 78 94 01/06 0400 77 15 125/65 89 95 01/06 0301 78 21 135/72 97 94 01/06 0300 77 18 94 01/06 0200 72 13 110/64 80 95 01/06 0100 75 14 117/69 89 95 01/06 0000 74 14 108/67 82 95 01/05 2300 78 21 122/84 98 95 01/05 2200 81 23 126/64 88 94 01/05 2130 95 01/051 83 20 118/55 79 97 01/05 202 87 30 135/79 101 95 01/06 2000 80 15 01/06 2000 36.8 01/05 1945 Nasal 2 cannula 01/05 1900 85 17 01/05 1530 37.3 01/05 1100 37.0 87 22 120/56 82 93 PATIENT WEIGHT: Weight (lb): 244 Weight (oz): 11.41 Weight (kg): 111.000 Medications: Active Meds + DC'd Last 24 Hrs Furosemide (LASIX 20MG INJ) 20 MG ONCE ONE IV (D C) Lactulose (LACTULOSE) 20 GM ONCE ONE PO (DC) Ipratropium Afton (ATROVENT) 500 MCG RTQ2H PRN PRN INH Cyanocobalamin (Vitamin B-12 500 mcg tab) 500 MC G DAILY PO Ferrous Sulfate (FERROUS SULFATE) 325 MG DAILY P O Lidocaine (LIDODERM) 1 PATCH DAILY TOPICAL Acetylcysteine (MUCOMYST FOR RT) 200 MG RTQ8H NE B Bisacodyl (DULCOLAX) 10 MG ONCE PRN RECTAL Atorvastatin Calcium (LIPITOR) 40 MG 2100 PO Clopidogrel Bisulfate (Plavix) 75 MG DAILY PO Polyethylene Glycol (MIRALAX) 17 GM DAILY PO Pantoprazole (PROTONIX) 40 MG DAILY@0600 PO Aspirin (ASPIRIN) 81 MG DAILY PO Amiodarone HCl (CORDARONE) 200 MG TID PO Docusate Sodium (COLACE) 100 MG BID PO Gabapentin (NEURONTIN) 200 MG BID PO Metoprolol Tartrate (LOPRESSOR) 12.5 MG Q12HR PO (DA) Sennosides (Senna Lax 8.6 MG TABLET) 17.2 MG BED TIME PO Acetaminophen (TYLENOL) 650 MG Q4H PRN PRN PO Acetaminophen (TYLENOL) 650 MG Q4H PRN PRN RECTA L Calcium Chloride (CALCIUM CHLORIDE) 1 GM ASDIR P RN IV (DC) Dextrose/Water (DEXTROSE 10% IN WATER) 125 ML DIR PRN IV (CKD) Dextrose/Water (DEXTROSE 10% IN WATER) 250 ML DIR PRN IV (CKD) Epinephrine (ADRENALIN CHLORIDE) 4 MG ASDIR IV ( DC) Dextrose/Water (DEXTROSE 5% WATER) 246 ML Glucagon (GLUCAGON) 1 MG ASDIR PRN IM Ipratropium Afton (ATROVENT) 500 MCG RTQ4H INH Magnesium Sulfate (MAGNESIUM SULFATE 4GM/SWFI 10 0ML) 100 ML ASDIR PRN IV Magnesium Sulfate (MAGNESIUM SULFATE 2GM/SWFI 50 ML) 50 ML ASDIR PRN IV Magnesium Sulfate/Dextrose (MAGNESIUM SULFATE 1G M/D5W 100ML) 100 ML ASDIR PRN IV Nitroglycerin/Dextrose (NITROGLYCERIN 50,000MCG/ D5W 250ML) 250 ML ASDIR IV (DC) Norepinephrine Bitartrate (NOREPINEPHRINE 8 MG/N S 250 ML) 250 ML TITRATE IV (DC) Ondansetron HCl (ZOFRAN) 4 MG Q6H PRN PRN IV Oxycodone HCl (ROXICODONE) 5 MG Q4H PRN PRN PO Oxycodone HCl (ROXICODONE) 10 MG Q4H PRN PRN PO Potassium Chloride (KCL 20MEQ/SWFI 100ML) 100 ML ASDIR PRN IV (DC) Sodium Bicarbonate (SODIUM BICARBONATE) 50 MEQ A SDIR PRN IV (DC) Acetaminophen (TYLENOL EXTRA STRENGTH) 1,000 MG PREOP ONCALL PO (DC) Gabapentin (NEURONTIN) 200 MG PREOP ONCALL PO (D C) Lactated Ringer's (LACTATED RINGERS) 1,000 ML AZ EOP ONCALL IV (DC) Lidocaine HCl (LIDOCAINE HCL/PF) 2 ML PREOP ONCA LL LOCAL (DC) Lidocaine HCl (LIDOCAINE HCL/PF) 2 ML PREOP ONCA LL LOCAL (DC) Sodium Chloride (SODIUM CHLORIDE 0.9%) 500 ML AZ EOP ONCALL IV (DC) Sodium Chloride (SODIUM CHLORIDE) 5 ML ASDIR PRN IV (DC) Sodium Chloride (SODIUM CHLORIDE) 10 ML ASDIR AZ N IV (DC) Sodium Chloride (SODIUM CHLORIDE 0.9%) 250 ML DIR PRN IV (DC) Sodium Chloride (SODIUM CHLORIDE) 20 ML ASDIR IV Status post: 4V CABG and ALAA Physical Exam General appearance: alert, awake, oriented Neck: full range of motion, non-tender, supple/n o meningismus, no bruit/NL carotids, no JVD Cardiovascular: CV assessment: pedal edema, regular rate and rh ythm Respiratory: decreased breath sounds, on oxygen, no distress Abdomen: non-tender, obese Genitourinary: no urinary catheter Lower extremity: LE assessment: edema Musculoskeletal: normal inspection Neuro/ASBESTOS CLOTH INSPECTOR: alert, oriented X 3, normal speech Skin: dry Psychiatry: normal affect, normal mood Results Findings/Data: Laboratory Tests 01/06 01/06 0813 0359 Blood Gas Puncture Site Art Line R Radial O2 Saturation (90 - 100 %) 99.6 93.8 ABG pH (7.35 - 7.45) 7.408 7.423 ABG pCO2 (35.0 - 45 mmHg) 40.3 43.6 ABG pO2 (80 - 100.0 mmHg) 188.4 H 69.1 L ABG PO2/FiO2 Ratio (mm/Hg) 523.33 ABG HCO3 (22.0 - 26.0 MMOL/L) 25.2 28.5 *H ABG Total CO2 26.4 29.8 ABG Base Excess (-4.0 - 4.0 MMOL/L) 0.7 4.1 H ABG Hematocrit (37.5 - 50.7 %) 25 L ABG Hemoglobin (12.5 - 16.9 G/DL) 8.4 L Michael Test Positive Sodium (134 - 147 mmol/L) 136 Potassium (3.4 - 5.0 mmol/L) 3.5 Chloride (100 - 108 mmol/L) 99 L Ionized Calcium (1.12 - 1.32 MMOL/L) 1.14 Lactic Acid (0.9 - 1.7 mmol/l) 2.4 H Temperature (F) 100.4 O2 Delivery Device Cannula Cannula FiO2 (%) 36 Laboratory Tests 01/06 01/06 0813 0250 Chemistry Sodium (134 - 147 mEq/L) 139 Potassium (3.4 - 5.0 mEq/L) 4.2 Chloride (100 - 108 mEq/L) 105 Carbon Dioxide (21 - 33 mEq/l) 28 Anion Gap (0 - 20) 10 BUN (7 - 18 mg/dL) 14 Creatinine (0.6 - 1.3 mg/dL) 0.8 POC Creatinine (0.8 - 1.3 mg/dL) 0.5 L Glomerular Filtr Rate (90 - 95) 105.8 H Glucose (70 - 110 mg/dL) 137 H POC Glucose (mg/dL) (70 - 110 MG/DL) 171 H Calcium (8.0 - 10.5 mg/dL) 8.3 Magnesium (1.80 - 2.40 mg/dL) 2.03 Laboratory Tests 01/06 0250 Hematology WBC (4.5 - 11.0 x10 3/uL) 10.1 RBC (4.00 - 5.60 x10 6/uL) 3.37 L Hgb (12.5 - 16.9 g/dL) 10.7 L Hct (37.5 - 50.7 %) 32.1 L MCV (81.0 - 99.0 fL) 95.3 MCH (27.0 - 33.0 pg) 31.8 MCHC (33.0 - 37.0 g/dL) 33.3 RDW (11.5 - 14.5 %) 13.2 Plt Count (150 - 400 x10 3/uL) 167 MPV (7.0 - 9.0 fL) 10.1 H Neut % (Auto) (56.0 - 77.0 %) 69.0 Lymph % (Auto) (14.0 - 32.0 %) 15.8 Vinton % (Auto) (4.8 - 9.0 %) 12.4 H Eos % (Auto) (0.3 - 3.7 %) 1.7 Baso % (Auto) (0.0 - 2.0 %) 0.3 Neut # (Auto) (2.0 - 7.6 x10 3/uL) 6.98 Lymph # (Auto) (1.0 - 3.8 x10 3/uL) 1.60 [place]inton # (Auto) (0.1 - 0.8 x10 3/uL) 1.25 H Eos # (Auto) (0.0 - 0.2 x10 3/uL) 0.17 Baso # (Auto) (0.0 - 0.2 x10 3/uL) 0.03 Abs Immat Gran (auto) (0.00 - 0.03 x10 3/uL) 0. 08 H Add Manual Diff NO Immature Gran % (0.0 - 2.0 %) 0.8 Nucleated RBC % (0 - 0 %) 0.0 Nucleated RBCs # (Man) (0.0 - 0.1 x10 3/uL) 0.0 0 Laboratory Tests 01/06 0250 Chemistry Magnesium (1.80 - 2.40 mg/dL) 2.03 Radiology data: Recent Impressions: RADIOLOGY - XR CHEST 1 V 01/06 1245 Report Impression - Status: SIGNED Entered: 01/06/2023 0805 IMPRESSION: 1. Improvement of bilateral upper lobe and right basilar opacity since the most recent exam. 2. Dense opacification of the left lung base, mi ldly increased. Impression By: [email or web address] - Pk Obregon M.D. Results: labs reviewed, vital signs reviewed, [facility] personally rev'd Telemetry Interpretation: sinus rhythm Diagnosis, Assessment Plan Plan discussed with: patient, nurse Free Text DxA P Notes Free Text DxA P Notes: 52-year-old male wi th medical history of hypertension, lifelong smoker, alcohol use who presents to ED at [facility] with back pain and chest pain. He was ruled in for non-STEMI. Taken to [facility] where he was found to have multivessel CAD with tight left main. Patient is transferred here for CABG evaluation. He is not having active chest pain. His main complaint is back pain and headache. His blood pressure is markedly elevated at the time of visit, 208/111 mmHg. 1. NSTEMI/multivessel CAD with left main disease s/p 4V CABG and ALAA awake and alert, on nasal cannula on DAP, BB, statin postop care per CTS Diuresis per CTS 2. Hypertension BP stable Continue beta-alejandra 3. Tobacco and alcohol use Counseled cessation pulmo following 4. Chronic back pain. manage per primary team Doing well. at 1457 Electronically Signed by Milagros Weaver MD on at 0946 RPT #:[id number] END OF REPORT 2023-01-06 10:36:00-00:00 [facility] REPORT#:[id number] REPORT STATUS: Signed DATE:01/06/23 TIME: 1036 PATIENT: SHEKHAR LOZADA UNIT #: [id number] ROOM/BED: 3343-1 : 69 AGE: 52 SEX: M ATTEND: Sheila Crabtree MD ADM AUTHOR: Rod Hancock WAITER/WAITRESS SECOND CLASS * ALL edits or amendments must be made on the [employer]/computer document * Rod Hancock 01/06/23 1036: Subjective Chief complaint: He is feeling better. Not in distress. On 3 liter NC. Breathing is stable. No N/v/d. BP and HR stable. Review of Systems ROS Constitutional: fatigue, generalized weakness. ENT: Denies: mouth pain, sinus problem, sore throat, throat pain. Respiratory: Reports: KISER (dyspnea on exertion), SOB. Denies: hemoptysis, pleurisy, pleuritic pain, pneumonia, productive cough (spu jim). Cardiovascular: Reports: chest pain. Denies: KISER (dyspnea on exe rtion), orthopnea, palpitations. GI: Denies: constipation, GERD, hematochezia, melena . : Denies: flank pain, testicular swelling. Musculoskeletal: Denies: extremity pain, joint swelling, neck freeman n, thoracic pain. Heme: Denies: bleeding, bruising. Neuro: Denies: change in LOC, dizziness, focal weakness , gait problem, headache, spinning sensation, syncope. Objective General VS/I O: Last Documented: Result Date Time Pulse Ox 93 01/06 957 B/P 113/68 01/06 09 B/P Mean 0.0 01/06 957 Temp 37.3 01/06 09 Pulse 78 01/06 09 Resp 18 01/06 957 O2 Delivery Nasal cannula 01/05 1945 O2 Flow Rate 2 01/05 1945 FiO2 40 01/03 2032 24 hour I O ending at 0700: 01/06 0700 01/05 1900 Intake Total 340.00 740 Output Total 1200 1200 Balance -860.00 -460 Intake, IV 100.00 Intake, Oral 240 740 Number Voids 4 Output, Urine 1200 1200 Patient 111 kg Weight Weight Standing scale Measurement Method PATIENT WEIGHT: Weight (lb): 244 Weight (oz): 11.41 Weight (kg): 111.000 Medications: Active Meds + DC'd Last 24 Hrs Furosemide (LASIX 20MG INJ) 20 MG ONCE ONE IV (D C) Lactulose (LACTULOSE) 20 GM ONCE ONE PO (DC) Ipratropium Afton (ATROVENT) 500 MCG RTQ2H PRN PRN INH Cyanocobalamin (Vitamin B-12 500 mcg tab) 500 MC G DAILY PO Ferrous Sulfate (FERROUS SULFATE) 325 MG DAILY P O Lidocaine (LIDODERM) 1 PATCH DAILY TOPICAL Acetylcysteine (MUCOMYST FOR RT) 200 MG RTQ8H NE B Bisacodyl (DULCOLAX) 10 MG ONCE PRN RECTAL Atorvastatin Calcium (LIPITOR) 40 MG 2100 PO Clopidogrel Bisulfate (Plavix) 75 MG DAILY PO Polyethylene Glycol (MIRALAX) 17 GM DAILY PO Pantoprazole (PROTONIX) 40 MG DAILY@0600 PO Aspirin (ASPIRIN) 81 MG DAILY PO Amiodarone HCl (CORDARONE) 200 MG TID PO Docusate Sodium (COLACE) 100 MG BID PO Gabapentin (NEURONTIN) 200 MG BID PO Metoprolol Tartrate (LOPRESSOR) 12.5 MG Q12HR PO (DA) Sennosides (Senna Lax 8.6 MG TABLET) 17.2 MG BED TIME PO Acetaminophen (TYLENOL) 650 MG Q4H PRN PRN PO Acetaminophen (TYLENOL) 650 MG Q4H PRN PRN RECTA L Calcium Chloride (CALCIUM CHLORIDE) 1 GM ASDIR P RN IV (DC) Dextrose/Water (DEXTROSE 10% IN WATER) 125 ML DIR PRN IV (CKD) Dextrose/Water (DEXTROSE 10% IN WATER) 250 ML DIR PRN IV (CKD) Epinephrine (ADRENALIN CHLORIDE) 4 MG ASDIR IV ( DC) Dextrose/Water (DEXTROSE 5% WATER) 246 ML Glucagon (GLUCAGON) 1 MG ASDIR PRN IM Ipratropium [place]fton (ATROVENT) 500 MCG RTQ4H INH Magnesium Sulfate (MAGNESIUM SULFATE 4GM/SWFI 10 0ML) 100 ML ASDIR PRN IV Magnesium Sulfate (MAGNESIUM SULFATE 2GM/SWFI 50 ML) 50 ML ASDIR PRN IV Magnesium Sulfate/Dextrose (MAGNESIUM SULFATE 1G M/D5W 100ML) 100 ML ASDIR PRN IV Nitroglycerin/Dextrose (NITROGLYCERIN 50,000MCG/ D5W 250ML) 250 ML ASDIR IV (DC) Norepinephrine Bitartrate (NOREPINEPHRINE 8 MG/N S 250 ML) 250 ML TITRATE IV (DC) Ondansetron HCl (ZOFRAN) 4 MG Q6H PRN PRN IV Oxycodone HCl (ROXICODONE) 5 MG Q4H PRN PRN PO Oxycodone HCl (ROXICODONE) 10 MG Q4H PRN PRN PO Potassium Chloride (KCL 20MEQ/SWFI 100ML) 100 ML ASDIR PRN IV (DC) Sodium Bicarbonate (SODIUM BICARBONATE) 50 MEQ A SDIR PRN IV (DC) Acetaminophen (TYLENOL EXTRA STRENGTH) 1,000 MG PREOP ONCALL PO (DC) Gabapentin (NEURONTIN) 200 MG PREOP ONCALL PO (D C) Lactated Ringer's (LACTATED RINGERS) 1,000 ML AZ EOP ONCALL IV (DC) Lidocaine HCl (LIDOCAINE HCL/PF) 2 ML PREOP ONCA LL LOCAL (DC) Lidocaine HCl (LIDOCAINE HCL/PF) 2 ML PREOP ONCA LL LOCAL (DC) Sodium Chloride (SODIUM CHLORIDE 0.9%) 500 ML AZ EOP ONCALL IV (DC) Sodium Chloride (SODIUM CHLORIDE) 5 ML ASDIR PRN IV (DC) Sodium Chloride (SODIUM CHLORIDE) 10 ML ASDIR AZ N IV (DC) Sodium Chloride (SODIUM CHLORIDE 0.9%) 250 ML DIR PRN IV (DC) Sodium Chloride (SODIUM CHLORIDE) 20 ML ASDIR IV Dietitian nutrition assessment The data set between the solid lines has been im ported from the dietitian's assessment. BMI Calculated: 40.7 Nutrition related diagnosis: Nutrition diagnosis details: Nutrition problem: Altered nutrition labs Nutrition etiology: Excessive oral intake Nutrition signs and symptoms: ELEVATED TRIGLYCER IDES , CHOL/HDL RATIO Nutrition prescription: 1. CONTINUE CARDIAC DIET Dietitian name: Vida Garcia RD, LD Assessment completed: 01/03/23 Physical Exam General appearance: alert, awake, oriented Head/eyes: atraumatic, normocephalic, PERRLA Neck: decreased range of motion Cardiovascular: normal heart sounds, normal S1/S 2, regular rate rhythm Respiratory/chest: aerating well, clear to auscultation, symmetric expansion, no distress Abdomen: soft, non-tender, no CVA tenderness Genitourinary: no bladder distention, no flank p ain Extremities: no clubbing, no cyanosis, no edema Musculoskeletal: no muscle spasm Neuro/ASBESTOS CLOTH INSPECTOR: alert, oriented X 3, CNII-XII intact Skin: dry, intact Psychiatry: normal affect, normal mood Results Findings/Data: Laboratory Tests 01/06/23 0250: [Embedded Image Not Available] Laboratory Tests 01/06 01/06 0813 0359 Blood Gas Puncture Site Art Line R Radial O2 Saturation (90 - 100 %) 99.6 93.8 ABG pH (7.35 - 7.45) 7.408 7.423 ABG pCO2 (35.0 - 45 mmHg) 40.3 43.6 ABG pO2 (80 - 100.0 mmHg) 188.4 H 69.1 L ABG PO2/FiO2 Ratio (mm/Hg) 523.33 ABG HCO3 (22.0 - 26.0 MMOL/L) 25.2 28.5 *H ABG Total CO2 26.4 29.8 ABG Base Excess (-4.0 - 4.0 MMOL/L) 0.7 4.1 H ABG Hematocrit (37.5 - 50.7 %) 25 L ABG Hemoglobin (12.5 - 16.9 G/DL) 8.4 L Michael Test Positive Sodium (134 - 147 mmol/L) 136 Potassium (3.4 - 5.0 mmol/L) 3.5 Chloride (100 - 108 mmol/L) 99 L Ionized Calcium (1.12 - 1.32 MMOL/L) 1.14 Lactic Acid (0.9 - 1.7 mmol/l) 2.4 H Temperature (F) 100.4 O2 Delivery Device Cannula Cannula FiO2 (%) 36 Laboratory Tests 01/06 01/06 0813 0250 Chemistry Sodium (134 - 147 mEq/L) 139 Potassium (3.4 - 5.0 mEq/L) 4.2 Chloride (100 - 108 mEq/L) 105 Carbon Dioxide (21 - 33 mEq/l) 28 Anion Gap (0 - 20) 10 BUN (7 - 18 mg/dL) 14 Creatinine (0.6 - 1.3 mg/dL) 0.8 POC Creatinine (0.8 - 1.3 mg/dL) 0.5 L Glomerular Filtr Rate (90 - 95) 105.8 H Glucose (70 - 110 mg/dL) 137 H POC Glucose (mg/dL) (70 - 110 MG/DL) 171 H Calcium (8.0 - 10.5 mg/dL) 8.3 Magnesium (1.80 - 2.40 mg/dL) 2.03 Laboratory Tests 01/06 0250 Hematology WBC (4.5 - 11.0 x10 3/uL) 10.1 RBC (4.00 - 5.60 x10 6/uL) 3.37 L Hgb (12.5 - 16.9 g/dL) 10.7 L Hct (37.5 - 50.7 %) 32.1 L MCV (81.0 - 99.0 fL) 95.3 MCH (27.0 - 33.0 pg) 31.8 MCHC (33.0 - 37.0 g/dL) 33.3 RDW (11.5 - 14.5 %) 13.2 Plt Count (150 - 400 x10 3/uL) 167 MPV (7.0 - 9.0 fL) 10.1 H Neut % (Auto) (56.0 - 77.0 %) 69.0 Lymph % (Auto) (14.0 - 32.0 %) 15.8 [place]inton % (Auto) (4.8 - 9.0 %) 12.4 H Eos % (Auto) (0.3 - 3.7 %) 1.7 Baso % (Auto) (0.0 - 2.0 %) 0.3 Neut # (Auto) (2.0 - 7.6 x10 3/uL) 6.98 Lymph # (Auto) (1.0 - 3.8 x10 3/uL) 1.60 Vinton # (Auto) (0.1 - 0.8 x10 3/uL) 1.25 H Eos # (Auto) (0.0 - 0.2 x10 3/uL) 0.17 Baso # (Auto) (0.0 - 0.2 x10 3/uL) 0.03 Abs Immat Gran (auto) (0.00 - 0.03 x10 3/uL) 0. 08 H Add Manual Diff NO Immature Gran % (0.0 - 2.0 %) 0.8 Nucleated RBC % (0 - 0 %) 0.0 Nucleated RBCs # (Man) (0.0 - 0.1 x10 3/uL) 0.0 0 Radiology data: Recent Impressions: RADIOLOGY - XR CHEST 1 V 01/06 6608 Report Impression - Status: SIGNED Entered: 01/06/2023804 IMPRESSION: 1. Improvement of bilateral upper lobe and right basilar opacity since the most recent exam. 2. Dense opacification of the left lung base, mi ldly increased. Impression By: [email or web address] - Pk Obregon M.D. Results: labs reviewed, vital signs reviewed, vi brandon signs stable, x-ray personally reviewed, current med profile rev'd Treatment Prophylaxis Treatment Prophylaxis Oxygen: nasal cannula Diagnosis, Assessment Plan Free Text A P: Assessment and Plan: - Dyspnea due to Multivessel CAD and Emphysema. - Emphysema/COPD. - Multivessel CAD. - CP due to CAD. - HX of HTN. - Smoker. - S/p CABG x 4 (BURDICK-LAD, SVG-Ramus, SVG-OM, SVG -PDA), ALAA, EVH (RGSV) and Posterior pericartiotomy. Plan: CVN1. Will continue Monitor respiratory status, breath ing tx, o2 support. Pain meds. Antiemetics. Follow labs and replace as needed. SCDs for DVT ppx. Continue Home meds. Monitor. Code status: full code Plan discussed with: patient, admitting physicia n, consultants, nurse Quality: Gen Med Crit Care Advanced Care Plan 65 or Older Discussed with: patient Jessi Chavez 01/08/23 0105: Attestations Physician Attestation Agree w/findings plan: Patient seen and examined, I agree with the findings and plans as documented by Rod Hancock NP Electronically Signed by Rod Hancock NP on at 1038 Electronically Signed by Jessi Chavez MD on 0 01/08/23 at 0111 RPT #:[id number] END OF REPORT 2023-01-05 12:21:00-00:00 [facility] Pulmonology Progress Note REPORT#:[id number] REPORT STATUS: Signed DATE:01/05/23 TIME: 1221 PATIENT: SHEKHAR LOZADA UNIT #: [id number] ROOM/BED: [place] [id number] : 69 AGE: 52 SEX: M ATTEND: Sheila Crabtree MD ADM AUTHOR: Rod Hancock WAITER/WAITRESS SECOND CLASS * ALL edits or amendments must be made on the [employer]/computer document * Rod Hancock 01/05/23 1221: Subjective Chief complaint: He is on 3 liter NC. Breathing is stable. No N/v/d. BP and HR stable. Review of Systems ROS Constitutional: fatigue, generalized weakness. Skin: Denies: itching, laceration, rash. Allergy/Immun: Denies: anaphylaxis, itching, rhinorrhea. Eyes: Denies: visual loss/blurred, diplopia, eye pain. ENT: Denies: mouth pain, sinus problem, sore throat, throat pain. Respiratory: Reports: KISER (dyspnea on exertion), SOB. Denies: hemoptysis, pleurisy, pleuritic pain, pneumonia, productive cough (spu jim). Cardiovascular: Reports: chest pain. Denies: KISER (dyspnea on exe rtion), orthopnea, palpitations. GI: Denies: constipation, GERD, hematochezia, melena . : Denies: flank pain, testicular swelling. Musculoskeletal: Denies: extremity pain, joint swelling, neck freeman n, thoracic pain. Heme: Denies: bleeding, bruising. Neuro: Denies: change in LOC, dizziness, focal weakness , gait problem, headache, spinning sensation, syncope. All systems rev neg: except as marked Objective General VS/I O: Last Documented: Result Date Time Pulse Ox 93 01/05 1100 B/P 120/56 01/05 1100 B/P Mean 82 01/05 1100 Temp 37.0 01/05 1100 Pulse 87 01/05 1100 Resp 22 01/05 1100 O2 Delivery Nasal cannula 01/05 0800 O2 Flow Rate 2 01/05 0800 FiO2 40 01/03 2032 24 hour I O ending at 0700: 01/05 0700 01/04 1900 Intake Total 450 1000 Output Total 880 670 Balance -430 330 Intake, Oral 450 1000 Number Voids 2 Output, Chest 80 70 Tube Drainage Output, Urine 800 600 Patient 111.8 kg Weight Weight Standing scale Measurement Method PATIENT WEIGHT: Weight (lb): 246 Weight (oz): 7.63 Weight (kg): 111.800 Medications: Active Meds + DC'd Last 24 Hrs Ipratropium Afton (ATROVENT) 500 MCG RTQ2H PRN PRN INH Cyanocobalamin (Vitamin B-12 500 mcg tab) 500 MC G DAILY PO Ferrous Sulfate (FERROUS SULFATE) 325 MG DAILY P O Lidocaine (LIDODERM) 1 PATCH DAILY TOPICAL Furosemide (LASIX 20MG INJ) 20 MG ONCE ONE IV (D C) Acetylcysteine (MUCOMYST FOR RT) 200 MG RTQ8H NE B Bisacodyl (DULCOLAX) 10 MG ONCE PRN RECTAL Magnesium Hydroxide (MILK OF MAGNESIA) 30 ML ONC E PRN PO (DC) Atorvastatin Calcium (LIPITOR) 40 MG 2100 PO Insulin Human Lispro (HUMALOG) 0 AC HS SUBQ (DC) Clopidogrel Bisulfate (Plavix) 75 MG DAILY PO Polyethylene Glycol (MIRALAX) 17 GM DAILY PO Pantoprazole (PROTONIX) 40 MG DAILY@0600 PO Aspirin (ASPIRIN) 81 MG DAILY PO Amiodarone HCl (CORDARONE) 200 MG TID PO Docusate Sodium (COLACE) 100 MG BID PO Gabapentin (NEURONTIN) 200 MG BID PO Metoprolol Tartrate (LOPRESSOR) 12.5 MG Q12HR PO (DA) Sennosides (Senna Lax 8.6 MG TABLET) 17.2 MG BED TIME PO Acetaminophen (TYLENOL) 650 MG Q4H PRN PRN PO Acetaminophen (TYLENOL) 650 MG Q4H PRN PRN RECTA L Calcium Chloride (CALCIUM CHLORIDE) 1 GM ASDIR P RN IV Dextrose/Water (DEXTROSE 10% IN WATER) 125 ML DIR PRN IV (CKD) Dextrose/Water (DEXTROSE 10% IN WATER) 250 ML DIR PRN IV (CKD) Epinephrine (ADRENALIN CHLORIDE) 4 MG ASDIR IV Dextrose/Water (DEXTROSE 5% WATER) 246 ML Glucagon (GLUCAGON) 1 MG ASDIR PRN IM Ipratropium Afton (ATROVENT) 500 MCG RTQ4H INH Magnesium Sulfate (MAGNESIUM SULFATE 4GM/SWFI 10 0ML) 100 ML ASDIR PRN IV Magnesium Sulfate (MAGNESIUM SULFATE 2GM/SWFI 50 ML) 50 ML ASDIR PRN IV Magnesium Sulfate/Dextrose (MAGNESIUM SULFATE 1G M/D5W 100ML) 100 ML ASDIR PRN IV Morphine Sulfate (morphine SULFATE) 4 MG Q2H PRN PRN IV (DC) Nitroglycerin/Dextrose (NITROGLYCERIN 50,000MCG/ D5W 250ML) 250 ML ASDIR IV Norepinephrine Bitartrate (NOREPINEPHRINE 8 MG/N S 250 ML) 250 ML TITRATE IV Ondansetron HCl (ZOFRAN) 4 MG Q6H PRN PRN IV Oxycodone HCl (ROXICODONE) 5 MG Q4H PRN PRN PO Oxycodone HCl (ROXICODONE) 10 MG Q4H PRN PRN PO Potassium Chloride (KCL 20MEQ/SWFI 100ML) 100 ML ASDIR PRN IV Sodium Bicarbonate (SODIUM BICARBONATE) 50 MEQ A SDIR PRN IV Sodium Chloride (SODIUM CHLORIDE 0.9%) 1,000 ML .Q20H IV (DC) Sodium Chloride (SODIUM CHLORIDE 0.9%) 250 ML Q2 4H IV (DC) Acetaminophen (TYLENOL EXTRA STRENGTH) 1,000 MG PREOP ONCALL PO (CKD) Gabapentin (NEURONTIN) 200 MG PREOP ONCALL PO (C KD) Lactated Ringer's (LACTATED RINGERS) 1,000 ML AZ EOP ONCALL IV Lidocaine HCl (LIDOCAINE HCL/PF) 2 ML PREOP ONCA LL LOCAL Lidocaine HCl (LIDOCAINE HCL/PF) 2 ML PREOP ONCA LL LOCAL Sodium Chloride (SODIUM CHLORIDE 0.9%) 500 ML AZ EOP ONCALL IV Sodium Chloride (SODIUM CHLORIDE) 5 ML ASDIR PRN IV Sodium Chloride (SODIUM CHLORIDE) 10 ML ASDIR AZ N IV Sodium Chloride (SODIUM CHLORIDE 0.9%) 250 ML DIR PRN IV Sodium Chloride (SODIUM CHLORIDE) 20 ML ASDIR IV Dietitian nutrition assessment The data set between the solid lines has been im ported from the dietitian's assessment. BMI Calculated: 41.0 Nutrition related diagnosis: Nutrition diagnosis details: Nutrition problem: Altered nutrition labs Nutrition etiology: Excessive oral intake Nutrition signs and symptoms: ELEVATED TRIGLYCER IDES , CHOL/HDL RATIO Nutrition prescription: 1. CONTINUE CARDIAC DIET Dietitian name: Vida Garcia, RD, LD Assessment completed: 01/03/23 Physical Exam General appearance: alert, awake, oriented Head/eyes: atraumatic, normocephalic, PERRLA Neck: decreased range of motion Cardiovascular: normal heart sounds, normal S1/S 2, regular rate rhythm Respiratory/chest: aerating well, clear to auscultation, symmetric expansion, no distress Abdomen: soft, non-tender, no CVA tenderness Genitourinary: no bladder distention, no flank p ain Extremities: no clubbing, no cyanosis, no edema Musculoskeletal: no muscle spasm Neuro/ASBESTOS CLOTH INSPECTOR: alert, oriented X 3, CNII-XII intact Skin: dry, intact Psychiatry: normal affect, normal mood Results Findings/Data: Laboratory Tests 01/05/23 0235: [Embedded Image Not Available] 01/04/23 1420: [Embedded Image Not Available] Laboratory Tests 01/05 0355 Blood Gas Puncture Site R Radial O2 Saturation (90 - 100 %) 92.7 ABG pH (7.35 - 7.45) 7.424 ABG pCO2 (35.0 - 45 mmHg) 45.1 H ABG pO2 (80 - 100.0 mmHg) 65.2 L ABG HCO3 (22.0 - 26.0 MMOL/L) 29.5 *H ABG Total CO2 30.9 ABG Base Excess (-4.0 - 4.0 MMOL/L) 5.1 H Michael Test Positive O2 Delivery Device Cannula Laboratory Tests 01/05 01/04 01/04 01/04 0235 1954 1714 1420 Chemistry Sodium (134 - 147 mEq/L) 136 134 Potassium (3.4 - 5.0 mEq/L) 4.5 4.4 Chloride (100 - 108 mEq/L) 103 103 Carbon Dioxide (21 - 33 mEq/l) 29 27 Anion Gap (0 - 20) 9 8 BUN (7 - 18 mg/dL) 16 17 Creatinine (0.6 - 1.3 mg/dL) 0.8 0.9 Glomerular Filtr Rate (90 - 95) 105.8 H 102.1 H Glucose (70 - 110 mg/dL) 143 H 146 H POC Glucose (70 - 110 MG/DL) 151 H 143 H Calcium (8.0 - 10.5 mg/dL) 8.4 7.6 L Magnesium (1.80 - 2.40 mg/dL) 2.25 Total Bilirubin (0.0 - 1.0 mg/dL) 0.90 Direct Bilirubin (0.0 - 0.30 MG/DL) 0.40 H Indirect Bilirubin (MG/DL) 0.50 AST (15 - 37 IUnit/L) 36 ALT (30 - 65 IUnit/L) 25 L Total Alk Phosphatase (20 - 125 IUnit/L) 60 Total Protein (6.4 - 8.2 g/dL) 5.6 L Albumin (3.4 - 5.0 g/dL) 3.20 L Laboratory Tests 01/05 0235 Hematology WBC (4.5 - 11.0 x10 3/uL) 11.7 H RBC (4.00 - 5.60 x10 6/uL) 3.40 L Hgb (12.5 - 16.9 g/dL) 10.8 L Hct (37.5 - 50.7 %) 32.4 L MCV (81.0 - 99.0 fL) 95.3 MCH (27.0 - 33.0 pg) 31.8 MCHC (33.0 - 37.0 g/dL) 33.3 RDW (11.5 - 14.5 %) 13.2 Plt Count (150 - 400 x10 3/uL) 139 L MPV (7.0 - 9.0 fL) 10.0 H Neut % (Auto) (56.0 - 77.0 %) 74.7 Lymph % (Auto) (14.0 - 32.0 %) 11.4 L V[place] % (Auto) (4.8 - 9.0 %) 12.8 H Eos % (Auto) (0.3 - 3.7 %) 0.3 Baso % (Auto) (0.0 - 2.0 %) 0.2 Neut # (Auto) (2.0 - 7.6 x10 3/uL) 8.74 H Lymph # (Auto) (1.0 - 3.8 x10 3/uL) 1.33 Vinton # (Auto) (0.1 - 0.8 x10 3/uL) 1.50 H Eos # (Auto) (0.0 - 0.2 x10 3/uL) 0.03 Baso # (Auto) (0.0 - 0.2 x10 3/uL) 0.02 Abs Immat Gran (auto) (0.00 - 0.03 x10 3/uL) 0. 07 H Add Manual Diff NO Immature Gran % (0.0 - 2.0 %) 0.6 Nucleated RBC % (0 - 0 %) 0.0 Nucleated RBCs # (Man) (0.0 - 0.1 x10 3/uL) 0.0 0 Radiology data: Recent Impressions: RADIOLOGY - XR CHEST 1 V 01/05 0700 Report Impression - Status: SIGNED Entered: 01/05/2023 0870 IMPRESSION: 1. Mild worsening right basilar opacities. 2. Removal of left chest tube. Suspected small l eft pneumothorax involving 10% volume. 3. Removal of the right IJ central line. Impression By: [email or web address] - Hilario Bentley M.D. Results: labs reviewed, vital signs reviewed, vi brandon signs stable, x-ray personally reviewed, current med profile rev'd Treatment Prophylaxis Treatment Prophylaxis Oxygen: nasal cannula CVC/PICC documentation: The data below has been imported from nursing do cumentation. Any exceptions have been noted below under Provider comments. CVC/PICC insertion date/time: No CVC/PICC Provider comments on imported nursing data: [] Diagnosis, Assessment Plan Free Text A P: Assessment and Plan: - Dyspnea due to Multivessel CAD and Emphysema. - Emphysema/COPD. - Multivessel CAD. - CP due to CAD. - HX of HTN. - Smoker. - S/p CABG x 4 (BURDICK-LAD, SVG-Ramus, SVG-OM, SVG -PDA), ALAA, EVH (RGSV) and Posterior pericartiotomy. Plan: CVICU. He has bilateral shoulder and neck pain. He is breathing stable on 3 liter nasal cannula. Chest tube removed yesterday. Voiding, siddiqui discontinued. Will continue Monitor respiratory status, breath ing tx, o2 support. Pain meds. Antiemetics. Follow labs and replace as needed. SCDs for DVT ppx. Continue Home meds. Monitor. Code status: full code Plan discussed with: patient, admitting physicia n, consultants, nurse Quality: Gen Med Crit Care Advanced Care Plan 65 or Older Discussed with: patient Jessi Chavez 01/06/23 0025: Attestations Physician Attestation Agree w/findings plan: Patient seen and examined, I agree with the findings and plans as documented by Rod Hancock NP Electronically Signed by Rod Hancock WAITER/WAITRESS SECOND CLASS on at 1230 Electronically Signed by Jessi Chavez MD on 0 01/06/23 at 0032 RPT #:[id number] END OF REPORT 2023-01-05 12:16:00-00:00 [facility] Cardiothoracic Surgery Prog REPORT#:[id number] REPORT STATUS: Signed DATE:01/05/23 TIME: 1216 PATIENT: SHEKHAR LOZADA UNIT #: [id number] ROOM/BED: [place] [id number] : 69 AGE: 52 SEX: M ATTEND: Sheila Crabtree MD ADM AUTHOR: Caro Bingham P * ALL edits or amendments must be made on the el [employer]/computer document * General Post-op: day 3 Status post: 01/02/23 CABG x 4 (BURDICK-LAD, SVG-Ramus, SVG-OM, SVG-PDA) ALAA EVH (RGSV) Posterior pericartiotomy Subjective Chief complaint: Multi-vessel CAD- s/p CABG Review of Systems Constitutional: Denies: fever, malaise. Skin: Denies: rash. Allergy/Immun: Denies: anaphylaxis, hives, itching. Eyes: Denies: redness, discharge, swelling. ENT: Denies: ear drainage, ear ringing. Respiratory: Denies: SOB, wheezing. Cardiovascular: Denies: chest pain, KISER (dyspnea on exertion), e sushila. GI: Denies: constipation, diarrhea. : Denies: hematuria, nocturia. Musculoskeletal: Denies: joint pain, joint swelling. Heme: Denies: bleeding, bruising. Endocrine: Denies: polydipsia, polyuria. Neuro: Denies: confusion, dizziness. All systems rev neg: except as marked Objective General VS/I O Last Documented: Result Date Time Pulse Ox 93 01/05 1100 B/P 120/56 01/05 1100 B/P Mean 82 01/05 1100 Temp 98.6 01/05 1100 Pulse 87 01/05 1100 Resp 22 01/05 1100 O2 Delivery Nasal cannula 01/05 0800 O2 Flow Rate 2 01/05 0800 FiO2 40 01/03 2032 24 hour I O ending at 0700: 01/05 0700 01/04 1900 Intake Total 450 1000 Output Total 880 670 Balance -430 330 Intake, Oral 450 1000 Number Voids 2 Output, Chest 80 70 Tube Drainage Output, Urine 800 600 Patient 246 lb Weight Weight Standing scale Measurement Method PATIENT WEIGHT: Weight (lb): 246 Weight (oz): 7.63 Weight (kg): 111.800 Physical Exam General appearance: alert, oriented Wound/incision: Location: sternal Site condition: dressing clean dry, dressing in tact HEENT: anicteric, mucosal membranes moist Neck: full range of motion, non-tender Cardiovascular: BP/pulses equal bilat., regular rate rhythm Respiratory: crackles, decreased breath sounds, aerating well, symmetric expansion, no distress Abdomen: soft, non-tender Extremities: dry, moves all Musculoskeletal: full range of motion, painless range of motion Neuro/ASBESTOS CLOTH INSPECTOR: alert, oriented X 3, normal speech, n o motor deficits Skin: dry, intact Psychiatry: normal affect, normal mood Current Medications Medications: Active Meds + DC'd Last 24 Hrs Ipratropium Afton (ATROVENT) 500 MCG RTQ2H PRN PRN INH Cyanocobalamin (Vitamin B-12 500 mcg tab) 500 MC G DAILY PO Ferrous Sulfate (FERROUS SULFATE) 325 MG DAILY P O Lidocaine (LIDODERM) 1 PATCH DAILY TOPICAL Furosemide (LASIX 20MG INJ) 20 MG ONCE ONE IV (D C) Acetylcysteine (MUCOMYST FOR RT) 200 MG RTQ8H NE B Bisacodyl (DULCOLAX) 10 MG ONCE PRN RECTAL Magnesium Hydroxide (MILK OF MAGNESIA) 30 ML ONC E PRN PO (DC) Atorvastatin Calcium (LIPITOR) 40 MG 2100 PO Insulin Human Lispro (HUMALOG) 0 AC HS SUBQ (DC) Clopidogrel Bisulfate (Plavix) 75 MG DAILY PO Polyethylene Glycol (MIRALAX) 17 GM DAILY PO Pantoprazole (PROTONIX) 40 MG DAILY@0600 PO Aspirin (ASPIRIN) 81 MG DAILY PO Amiodarone HCl (CORDARONE) 200 MG TID PO Docusate Sodium (COLACE) 100 MG BID PO Gabapentin (NEURONTIN) 200 MG BID PO Metoprolol Tartrate (LOPRESSOR) 12.5 MG Q12HR PO (DA) Sennosides (Senna Lax 8.6 MG TABLET) 17.2 MG BED TIME PO Acetaminophen (TYLENOL) 650 MG Q4H PRN PRN PO Acetaminophen (TYLENOL) 650 MG Q4H PRN PRN RECTA L Calcium Chloride (CALCIUM CHLORIDE) 1 GM ASDIR P RN IV Dextrose/Water (DEXTROSE 10% IN WATER) 125 ML DIR PRN IV (CKD) Dextrose/Water (DEXTROSE 10% IN WATER) 250 ML DIR PRN IV (CKD) Epinephrine (ADRENALIN CHLORIDE) 4 MG ASDIR IV Dextrose/Water (DEXTROSE 5% WATER) 246 ML Glucagon (GLUCAGON) 1 MG ASDIR PRN IM Ipratropium [place]on (ATROVENT) 500 MCG RTQ4H INH Magnesium Sulfate (MAGNESIUM SULFATE 4GM/SWFI 10 0ML) 100 ML ASDIR PRN IV Magnesium Sulfate (MAGNESIUM SULFATE 2GM/SWFI 50 ML) 50 ML ASDIR PRN IV Magnesium Sulfate/Dextrose (MAGNESIUM SULFATE 1G M/D5W 100ML) 100 ML ASDIR PRN IV Morphine Sulfate (morphine SULFATE) 4 MG Q2H PRN PRN IV (DC) Nitroglycerin/Dextrose (NITROGLYCERIN 50,000MCG/ D5W 250ML) 250 ML ASDIR IV Norepinephrine Bitartrate (NOREPINEPHRINE 8 MG/N S 250 ML) 250 ML TITRATE IV Ondansetron HCl (ZOFRAN) 4 MG Q6H PRN PRN IV Oxycodone HCl (ROXICODONE) 5 MG Q4H PRN PRN PO Oxycodone HCl (ROXICODONE) 10 MG Q4H PRN PRN PO Potassium Chloride (KCL 20MEQ/SWFI 100ML) 100 ML ASDIR PRN IV Sodium Bicarbonate (SODIUM BICARBONATE) 50 MEQ A SDIR PRN IV Sodium Chloride (SODIUM CHLORIDE 0.9%) 1,000 ML .Q20H IV (DC) Sodium Chloride (SODIUM CHLORIDE 0.9%) 250 ML Q2 4H IV (DC) Acetaminophen (TYLENOL EXTRA STRENGTH) 1,000 MG PREOP ONCALL PO (CKD) Gabapentin (NEURONTIN) 200 MG PREOP ONCALL PO (C KD) Lactated Ringer's (LACTATED RINGERS) 1,000 ML AZ EOP ONCALL IV Lidocaine HCl (LIDOCAINE HCL/PF) 2 ML PREOP ONCA LL LOCAL Lidocaine HCl (LIDOCAINE HCL/PF) 2 ML PREOP ONCA LL LOCAL Sodium Chloride (SODIUM CHLORIDE 0.9%) 500 ML AZ EOP ONCALL IV Sodium Chloride (SODIUM CHLORIDE) 5 ML ASDIR PRN IV Sodium Chloride (SODIUM CHLORIDE) 10 ML ASDIR AZ N IV Sodium Chloride (SODIUM CHLORIDE 0.9%) 250 ML DIR PRN IV Sodium Chloride (SODIUM CHLORIDE) 20 ML ASDIR IV Results Findings/Data: Laboratory Tests 01/05 0355 Blood Gas Puncture Site R Radial O2 Saturation (90 - 100 %) 92.7 ABG pH (7.35 - 7.45) 7.424 ABG pCO2 (35.0 - 45 mmHg) 45.1 H ABG pO2 (80 - 100.0 mmHg) 65.2 L ABG HCO3 (22.0 - 26.0 MMOL/L) 29.5 *H ABG Total CO2 30.9 ABG Base Excess (-4.0 - 4.0 MMOL/L) 5.1 H Michael Test Positive O2 Delivery Device Cannula Laboratory Tests 01/05 01/04 01/04 01/04 0235 1954 1714 1420 Chemistry Sodium (134 - 147 mEq/L) 136 134 Potassium (3.4 - 5.0 mEq/L) 4.5 4.4 Chloride (100 - 108 mEq/L) 103 103 Carbon Dioxide (21 - 33 mEq/l) 29 27 Anion Gap (0 - 20) 9 8 BUN (7 - 18 mg/dL) 16 17 Creatinine (0.6 - 1.3 mg/dL) 0.8 0.9 Glomerular Filtr Rate (90 - 95) 105.8 H 102.1 H Glucose (70 - 110 mg/dL) 143 H 146 H POC Glucose (70 - 110 MG/DL) 151 H 143 H Calcium (8.0 - 10.5 mg/dL) 8.4 7.6 L Magnesium (1.80 - 2.40 mg/dL) 2.25 Total Bilirubin (0.0 - 1.0 mg/dL) 0.90 Direct Bilirubin (0.0 - 0.30 MG/DL) 0.40 H Indirect Bilirubin (MG/DL) 0.50 AST (15 - 37 IUnit/L) 36 ALT (30 - 65 IUnit/L) 25 L Total Alk Phosphatase (20 - 125 IUnit/L) 60 Total Protein (6.4 - 8.2 g/dL) 5.6 L Albumin (3.4 - 5.0 g/dL) 3.20 L Laboratory Tests 01/05 0235 Hematology WBC (4.5 - 11.0 x10 3/uL) 11.7 H RBC (4.00 - 5.60 x10 6/uL) 3.40 L Hgb (12.5 - 16.9 g/dL) 10.8 L Hct (37.5 - 50.7 %) 32.4 L MCV (81.0 - 99.0 fL) 95.3 MCH (27.0 - 33.0 pg) 31.8 MCHC (33.0 - 37.0 g/dL) 33.3 RDW (11.5 - 14.5 %) 13.2 Plt Count (150 - 400 x10 3/uL) 139 L MPV (7.0 - 9.0 fL) 10.0 H Neut % (Auto) (56.0 - 77.0 %) 74.7 Lymph % (Auto) (14.0 - 32.0 %) 11.4 L [place] % (Auto) (4.8 - 9.0 %) 12.8 H Eos % (Auto) (0.3 - 3.7 %) 0.3 Baso % (Auto) (0.0 - 2.0 %) 0.2 Neut # (Auto) (2.0 - 7.6 x10 3/uL) 8.74 H Lymph # (Auto) (1.0 - 3.8 x10 3/uL) 1.33 [place] # (Auto) (0.1 - 0.8 x10 3/uL) 1.50 H Eos # (Auto) (0.0 - 0.2 x10 3/uL) 0.03 Baso # (Auto) (0.0 - 0.2 x10 3/uL) 0.02 Abs Immat Gran (auto) (0.00 - 0.03 x10 3/uL) 0. 07 H Add Manual Diff NO Immature Gran % (0.0 - 2.0 %) 0.6 Nucleated RBC % (0 - 0 %) 0.0 Nucleated RBCs # (Man) (0.0 - 0.1 x10 3/uL) 0.0 0 Radiology data: Recent Impressions: RADIOLOGY - XR CHEST 1 V 01/05 0700 Report Impression - Status: SIGNED Entered: 01/05/2023 0817 IMPRESSION: 1. Mild worsening right basilar opacities. 2. Removal of left chest tube. Suspected small l eft pneumothorax involving 10% volume. 3. Removal of the right IJ central line. Impression By: [email or web address] - Hilario Bentley M.D. Quality: Trauma Gen Surg Advanced Care Plan 65 or Older Discussed with: patient Diagnosis, Assessment Plan Hospital course to date: This is a 52-year-old gentle man with a past medical history of hypertension who initially presented to an outside hospital with complaints of back pain, and chest pains. He reports the back pain as mid upper back pain that occurred over the last couple of weeks. Usually pain is worse with gonzalez ging position The patient reports he start ed to develop chest pains located midsternal for the past 2 weeks. He denies any radiating symptoms. Describes the chest pains as a heaviness, squeez ing sensation. Denies any syncope, palpitations. Denies any nausea vomitin g or diaphoresis. Patient underwent left heart catheterization by Dr. Felton at [facility] this showed multi vessel CAD with a 90% LAD, 60-70% left main, 70-80% circumflex. An echocardiogram was also done at [facility] on 12/28/2022. This showed a normal left ventricular ejection fractio n of 55-60%, moderate LVH, mild mitral regurgitation, grade 1 diastolic dysfunction. The patient does admit to sm oking 1-2 times per week. Does admit to alcohol 1-2 times per week. Patient does have a strong famil y history of coronary artery disease in his father and his grandmother. Denies any surgical history, Review of the records from [facility] show the mark obrien was admitted with a troponin peak of 483. Hemoglobin A1c was noted t o be 5.5. Renal function appears normal. Patient was transferred to [facility] for khai luation for coronary bypass graft surgery. Hemoglobin A1c noted to be 5.5 at [facility]' Assessment/plan 1.coronary artery disease Begin work-up for coronary artery bypass graft with appropriate studies. 2. Hypertension 3. Chest pains Patient has been seen and examined by Dr. Jose fatima. Work-up underway for coronary artery bypass graft surgery. Further recommendations to follow 12/31/22 Patient resting comfortable denies pain. AAOx3 Respiratory: 100% oxygen on room air. Cardiac: Remains sinus rhythm GI: Denies constipation diarrhea positive bowel movement. : Voiding well. 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 Likely consider coronary artery bypass surgery e preet next week. Patient was seen and examine d by Dr. Crabtree. Further recommendations to follow 01/01 Patient resting comfortable denies pain. AAOx3 Respiratory: 100% oxygen on room air. Cardiac: Remains sinus rhythm GI: Denies constipation or diarrhea, positive ramon wel movement. : Voiding well. 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 Pulmonary consulted for history of smoking and a bnormal CT suggestive of emphysema. PFT hopefully to be completed in the morning. STS 0.39% Patient was seen and examine d by Dr. Crabtree. Further recommendations to follow Coronary artery bypass graft surgery was discuss ed with the patient. The risk of the operation including , bleeding, infe ction, heart attack, stroke, pneumonia, renal failure, dialysis, prol onged ICU stay, car tracheostomy, need for long-term rehabilitation were all discussed with the patient. Patient's questions were answered and the patient agreed t o proceed with surgery. 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 Crabtree, discussed plan of care with multidisciplinary team. 01/04 Patient is alert and oriented, up in the recline r, complaining of back pain Left pleural chest tube discontinued to minimize pain and facilitate deep breathing Multimodal pain control Chest x-ray showed atelectasis. Wean O2 as delvis ated, encourage I-S and ambulation Pulmonary toilet, Mucomyst Discontinue central line Normal renal function, discontinue Siddiqui cathete r Glycemic control Keep in CVICU for close monitoring Patient seen and plan reviewed with the Bro multidisciplinary team 01/05 Overall doing better today, pain improved Discontinue chest tube Chest x-ray reviewed. Gentle diuresis with Lasix 20 mg IV once Encourage I-S and mobilization PT/OT Transfer to intermediate care Patient seen and plan reviewed with the Bro multidisciplinary team at 1218 at 1526 RPT #:[id number] END OF REPORT 2023-01-05 10:56:00-00:00 [facility] Cardiology Progress Note REPORT#:[id number] REPORT STATUS: Signed DATE:01/05/23 TIME: 1056 PATIENT: SHEKHAR LOZADA UNIT #: [id number] ROOM/BED: [place] [address] : 69 AGE: 52 SEX: M ATTEND: Sheila Crabtree MD ADM AUTHOR: Juanis Blevins HARVESTING CONTRACTOR * ALL edits or amendments must be made on the [employer] document * Subjective Comments: c/o bilateral neck pain. Objective General VS/I O: 24 hour I O ending at 0700: 01/05 0700 01/04 1900 Intake Total 450 1000 Output Total 880 670 Balance -430 330 Intake, Oral 450 1000 Number Voids 2 Output, Chest 80 70 Tube Drainage Output, Urine 800 600 Patient 111.8 kg Weight Weight Standing scale Measurement Method Vital Signs: Date Time Temp Pulse Resp B/P B/P Pulse O2 O2 F low FiO2 Mean Ox Delivery Rate 01/05 0900 91 18 138/93 111 92 01/05 0800 91 18 133/71 97 89 01/05 0744 92 Nasal 5 cannula 01/05 0737 93 22 141/83 97 91 01/05 0720 91 19 90 01/05 0715 90 20 91 01/05 0700 36.9 89 16 121/74 93 91 01/05 0653 90 12 120/71 88 90 01/05 0645 89 92 01/05 0630 85 16 131/100 113 92 01/05 0615 84 17 92 01/05 0600 86 19 137/75 100 93 01/05 0545 86 16 93 01/05 0530 83 15 129/74 96 92 01/05 0515 84 93 01/05 0500 83 13 121/64 84 92 01/05 0445 83 15 92 01/05 0430 83 121/66 87 93 01/05 0415 84 93 / 0400 86 125/77 95 94 / 0345 85 94 / 0330 88 14 120/65 87 93 01/05 0315 87 18 93 03/ 0300 87 132/67 91 92 / 0245 87 18 93 / 0230 87 16 138/77 97 93 / 0215 86 95 / 0200 85 143/66 93 94 03/ 0145 85 14 94 03/ 0130 86 21 135/67 94 93 03/ 0115 86 16 93 03/ 0100 84 22 143/70 100 93 03/ 0045 86 95 03/ 0031 86 15 135/72 96 94 03/ 0030 86 14 93 03/ 0027 36.8 01/05 0015 85 15 94 01/05 0000 85 13 113/84 95 94 01/04 2345 85 17 94 01/04 2330 86 14 112/71 87 94 01/04 2315 85 16 94 01/04 2300 85 14 121/70 89 93 01/04 2230 85 120/65 84 93 01/04 2200 85 126/62 84 92 01/041 85 16 158/90 112 01/04 2100 86 147/67 97 93 01/05 2032 95 Nasal 4 cannula 01/04 2030 85 15 126/70 92 93 01/05 2000 36.9 01/05 2000 Nasal 4 cannula 01/05 2000 85 144/79 104 93 01/04 1930 86 19 137/78 97 94 01/04 1915 86 93 01/04 1912 90 160/85 114 93 01/04 1900 85 19 94 01/04 1845 83 18 93 01/04 1830 86 20 108/61 77 93 01/04 1800 85 11 117/58 80 92 01/04 1730 93 129/92 103 92 01/04 1700 86 20 129/68 94 83 01/04 1630 87 19 120/69 87 90 01/04 1600 37.5 01/04 1600 87 16 137/65 93 98 01/04 1530 87 17 119/72 92 96 01/04 1500 87 22 125/83 99 93 01/04 1430 86 26 125/69 92 92 01/04 1400 85 23 121/75 93 95 01/04 1330 84 25 95 01/04 1300 83 27 108/63 79 92 01/04 1230 82 22 116/66 85 92 01/04 1224 81 21 127/72 94 94 01/04 1200 37.3 01/04 1200 81 19 93 01/04 1130 83 25 120/66 85 94 01/04 1100 83 19 120/63 85 93 PATIENT WEIGHT: Weight (lb): 246 Weight (oz): 7.63 Weight (kg): 111.800 Medications: Active Meds + DC'd Last 24 Hrs Ipratropium A[place]on (ATROVENT) 500 MCG RTQ2H PRN PRN INH Cyanocobalamin (Vitamin B-12 500 mcg tab) 500 MC G DAILY PO Ferrous Sulfate (FERROUS SULFATE) 325 MG DAILY P O Lidocaine (LIDODERM) 1 PATCH DAILY TOPICAL Furosemide (LASIX 20MG INJ) 20 MG ONCE ONE IV (D C) Acetylcysteine (MUCOMYST FOR RT) 200 MG RTQ8H NE B Bisacodyl (DULCOLAX) 10 MG ONCE PRN RECTAL Magnesium Hydroxide (MILK OF MAGNESIA) 30 ML ONC E PRN PO (DC) Atorvastatin Calcium (LIPITOR) 40 MG 2100 PO Insulin Human Lispro (HUMALOG) 0 AC HS SUBQ (DC) Clopidogrel Bisulfate (Plavix) 75 MG DAILY PO Polyethylene Glycol (MIRALAX) 17 GM DAILY PO Pantoprazole (PROTONIX) 40 MG DAILY@0600 PO Aspirin (ASPIRIN) 81 MG DAILY PO Amiodarone HCl (CORDARONE) 200 MG TID PO Docusate Sodium (COLACE) 100 MG BID PO Gabapentin (NEURONTIN) 200 MG BID PO Metoprolol Tartrate (LOPRESSOR) 12.5 MG Q12HR PO (DA) Sennosides (Senna Lax 8.6 MG TABLET) 17.2 MG BED TIME PO Acetaminophen (TYLENOL) 650 MG Q4H PRN PRN PO Acetaminophen (TYLENOL) 650 MG Q4H PRN PRN RECTA L Calcium Chloride (CALCIUM CHLORIDE) 1 GM ASDIR P RN IV Dextrose/Water (DEXTROSE 10% IN WATER) 125 ML DIR PRN IV (CKD) Dextrose/Water (DEXTROSE 10% IN WATER) 250 ML DIR PRN IV (CKD) Epinephrine (ADRENALIN CHLORIDE) 4 MG ASDIR IV Dextrose/Water (DEXTROSE 5% WATER) 246 ML Glucagon (GLUCAGON) 1 MG ASDIR PRN IM Ipratropium Afton (ATROVENT) 500 MCG RTQ4H INH Magnesium Sulfate (MAGNESIUM SULFATE 4GM/SWFI 10 0ML) 100 ML ASDIR PRN IV Magnesium Sulfate (MAGNESIUM SULFATE 2GM/SWFI 50 ML) 50 ML ASDIR PRN IV Magnesium Sulfate/Dextrose (MAGNESIUM SULFATE 1G M/D5W 100ML) 100 ML ASDIR PRN IV Morphine Sulfate (morphine SULFATE) 4 MG Q2H PRN PRN IV (DC) Nitroglycerin/Dextrose (NITROGLYCERIN 50,000MCG/ D5W 250ML) 250 ML ASDIR IV Norepinephrine Bitartrate (NOREPINEPHRINE 8 MG/N S 250 ML) 250 ML TITRATE IV Ondansetron HCl (ZOFRAN) 4 MG Q6H PRN PRN IV Oxycodone HCl (ROXICODONE) 5 MG Q4H PRN PRN PO Oxycodone HCl (ROXICODONE) 10 MG Q4H PRN PRN PO Potassium Chloride (KCL 20MEQ/SWFI 100ML) 100 ML ASDIR PRN IV Sodium Bicarbonate (SODIUM BICARBONATE) 50 MEQ A SDIR PRN IV Sodium Chloride (SODIUM CHLORIDE 0.9%) 1,000 ML .Q20H IV (DC) Sodium Chloride (SODIUM CHLORIDE 0.9%) 250 ML Q 24H IV (DC) Acetaminophen (TYLENOL EXTRA STRENGTH) 1,000 MG PREOP ONCALL PO (CKD) Gabapentin (NEURONTIN) 200 MG PREOP ONCALL PO (C KD) Lactated Ringer's (LACTATED RINGERS) 1,000 ML AZ EOP ONCALL IV Lidocaine HCl (LIDOCAINE HCL/PF) 2 ML PREOP ONCA LL LOCAL Lidocaine HCl (LIDOCAINE HCL/PF) 2 ML PREOP ONCA LL LOCAL Sodium Chloride (SODIUM CHLORIDE 0.9%) 500 ML AZ EOP ONCALL IV Sodium Chloride (SODIUM CHLORIDE) 5 ML ASDIR PRN IV Sodium Chloride (SODIUM CHLORIDE) 10 ML ASDIR P RN IV Sodium Chloride (SODIUM CHLORIDE 0.9%) 250 ML DIR PRN IV Sodium Chloride (SODIUM CHLORIDE) 20 ML ASDIR IV Physical Exam General appearance: obese, alert, awake, oriente d Neck: full range of motion, non-tender, supple/n o meningismus, no bruit/NL carotids, no JVD Cardiovascular: CV assessment: pedal edema, regular rate and rh ythm Respiratory: decreased breath sounds, on oxygen, no distress Abdomen: non-tender, obese Genitourinary: no urinary catheter Lower extremity: LE assessment: edema Musculoskeletal: normal inspection Neuro/ASBESTOS CLOTH INSPECTOR: alert, oriented X 3, normal speech Skin: dry Psychiatry: normal affect, normal mood Results Findings/Data: Laboratory Tests 01/05 0355 Blood Gas Puncture Site R Radial O2 Saturation (90 - 100 %) 92.7 ABG pH (7.35 - 7.45) 7.424 ABG pCO2 (35.0 - 45 mmHg) 45.1 H ABG pO2 (80 - 100.0 mmHg) 65.2 L ABG HCO3 (22.0 - 26.0 MMOL/L) 29.5 *H ABG Total CO2 30.9 ABG Base Excess (-4.0 - 4.0 MMOL/L) 5.1 H Michael Test Positive O2 Delivery Device Cannula Laboratory Tests 01/05 1954 1714 1420 1149 Chemistry Sodium (134 - 147 mEq/L) 136 134 Potassium (3.4 - 5.0 mEq/L) 4.5 4.4 Chloride (100 - 108 mEq/L) 103 103 Carbon Dioxide (21 - 33 mEq/l) 29 27 Anion Gap (0 - 20) 9 8 BUN (7 - 18 mg/dL) 16 17 Creatinine (0.6 - 1.3 mg/dL) 0.8 0.9 Glomerular Filtr Rate (90 - 95) 105.8 H 102.1 H Glucose (70 - 110 mg/dL) 143 H 146 H POC Glucose (70 - 110 MG/DL) 151 H 143 H 145 H Calcium (8.0 - 10.5 mg/dL) 8.4 7.6 L Magnesium (1.80 - 2.40 mg/dL) 2.25 Total Bilirubin (0.0 - 1.0 mg/dL) 0.90 Direct Bilirubin (0.0 - 0.30 MG/DL) 0.40 H Indirect Bilirubin (MG/DL) 0.50 AST (15 - 37 IUnit/L) 36 ALT (30 - 65 IUnit/L) 25 L Total Alk Phosphatase (20 - 125 60 IUnit/L) Total Protein (6.4 - 8.2 g/dL) 5.6 L Albumin (3.4 - 5.0 g/dL) 3.20 L Laboratory Tests 01/05 235 Hematology WBC (4.5 - 11.0 x10 3/uL) 11.7 H RBC (4.00 - 5.60 x10 6/uL) 3.40 L Hgb (12.5 - 16.9 g/dL) 10.8 L Hct (37.5 - 50.7 %) 32.4 L MCV (81.0 - 99.0 fL) 95.3 MCH (27.0 - 33.0 pg) 31.8 MCHC (33.0 - 37.0 g/dL) 33.3 RDW (11.5 - 14.5 %) 13.2 Plt Count (150 - 400 x10 3/uL) 139 L MPV (7.0 - 9.0 fL) 10.0 H Neut % (Auto) (56.0 - 77.0 %) 74.7 Lymph % (Auto) (14.0 - 32.0 %) 11.4 L V[place] % (Auto) (4.8 - 9.0 %) 12.8 H Eos % (Auto) (0.3 - 3.7 %) 0.3 Baso % (Auto) (0.0 - 2.0 %) 0.2 Neut # (Auto) (2.0 - 7.6 x10 3/uL) 8.74 H Lymph # (Auto) (1.0 - 3.8 x10 3/uL) 1.33 Vinton # (Auto) (0.1 - 0.8 x10 3/uL) 1.50 H Eos # (Auto) (0.0 - 0.2 x10 3/uL) 0.03 Baso # (Auto) (0.0 - 0.2 x10 3/uL) 0.02 Abs Immat Gran (auto) (0.00 - 0.03 x10 3/uL) 0. 07 H Add Manual Diff NO Immature Gran % (0.0 - 2.0 %) 0.6 Nucleated RBC % (0 - 0 %) 0.0 Nucleated RBCs # (Man) (0.0 - 0.1 x10 3/uL) 0.0 0 Laboratory Tests 01/05 0235 Chemistry Magnesium (1.80 - 2.40 mg/dL) 2.25 Radiology data: Recent Impressions: RADIOLOGY - XR CHEST 1 V 01/05 0700 Report Impression - Status: SIGNED Entered: 01/05/2023 0817 IMPRESSION: 1. Mild worsening right basilar opacities. 2. Removal of left chest tube. Suspected small l eft pneumothorax involving 10% volume. 3. Removal of the right IJ central line. Impression By: [email or web address] - Hilario Bentley M.D. Results: labs reviewed, vital signs reviewed, [facility] personally rev'd Telemetry Interpretation: Sinus rhythm Diagnosis, Assessment Plan Plan discussed with: patient, nurse Free Text DxA P Notes Free Text DxA P Notes: 52-year-old male wi th medical history of hypertension, lifelong smoker, alcohol use who presents to ED at [facility] with back pain and chest pain. He was ruled in for non-STEMI. Taken to [facility] where he was found to have multivessel CAD with tight left main. Patient is transferred here for CABG evaluation. He is not having active chest pain. His main complaint is back pain and headache. His blood pressure is markedly elevated at the time of visit, 208/111 mmHg. 1. NSTEMI/multivessel CAD with left main disease s/p 4V CABG and ALAA awake and alert, on nasal cannula on DAP, BB, statin postop care per CTS Diuresis per CTS 2. Hypertension BP stable Continue beta-alejandra 3. Tobacco and alcohol use Counseled cessation pulmo following 4. Chronic back pain. manage per primary team at 1741 Electronically Signed by Milagros Weaver MD on at 0946 RPT #:[id number] END OF REPORT 2023-01-04 15:00[facility]00-00:00 [facility] Critical Care Progress Note REPORT#:[id number] REPORT STATUS: Signed DATE:01/04/23 TIME: 1500 PATIENT: SHEKHAR LOZADA UNIT #: [id number] ROOM/BED: [place] [id number] : 69 AGE: 52 SEX: M ATTEND: Sheila Crabtree MD ADM AUTHOR: Rome Esparza MD * ALL edits or amendments must be made on the [employer]/computer document * Subjective Chief complaint: Chest pain HPI: This is a 52-year-old male with medical history significant for hypertension, alcohol abuse and occasional smoking who initial ly presented to an outside hospital with complaints of back pain, and chest pains that started in the last 2 weeks. Patient underwent left heart catheterization by Dr. Felton at [facility] this showed multi vessel CAD with a 90% LAD, 60-70% left main, 70-80% circumflex. The patient underwent an echocardiogram done at [facility] on 12/28/2022 that showed a normal left ventric ular ejection fraction of 55-60%, moderate LVH, mild mitral regurgitation, grade 1 diastolic dysfunct ion. Patient was transferred to [facility] for khai luation for coronary bypass graft surgery. Earlier today the patient un derwent CABG x 4 (BURDICK-LAD, SVG-Ramus, SVG-OM, SVG- PDA) and ALAA. His intraoperative course was wit hout significant recurrence. He received 1200 of crystalloids and 300 cc of a utologous blood and 720 cc of Cell Saver. He was brought to CVICU intubated an d ventilated on epinephrine drip of 6 and norepinephrine drip of 8. The patient will be weaned to extubate per noreen col. We also will wean his pressors for MAP of over 65. The patient was weaned and extubated per protocol without problems. We also were weaning down on h is pressors. He received 500 cc of fluids to help with weaning down his press ors and a low CVP. Comments: Interval history- Patient pain was not controlled. After r emoving the pleural chest tube pain is better. Still requiring out of oxygen. Chest x-ray shows atelectasis. Is doing better incentive spirometry today. Objective General VS/I O Last Documented: Result Date Time Pulse Ox 94 01/04 0853 O2 Delivery Nasal cannula 01/04 0853 O2 Flow Rate 4 01/04 0853 B/P 149/61 01/04 0232 B/P Mean 81 01/04 0232 Temp 38.4 01/04 0232 Pulse 85 01/04 0232 Resp 22 01/04 0232 FiO2 40 01/03 2032 24 hour I O ending at 0700: 01/04 0700 01/03 1900 Intake Total 1052.00 350.00 Output Total 575 855 Balance 477.00 -505.00 Intake, IV 252.00 350.00 Intake, Oral 800 Output, Chest 140 340 Tube Drainage Output, Urine 435 515 Patient 113.1 kg 110.677 kg Weight Weight Standing scale Measurement Method PATIENT WEIGHT: Weight (lb): 249 Weight (oz): 5.49 Weight (kg): 113.100 Medications: Active Meds + DC'd Last 24 Hrs Ipratropium A[place]on (ATROVENT) 500 MCG RTQ2H PRN PRN INH Cyanocobalamin (Vitamin B-12 500 mcg tab) 500 MC G DAILY PO Ferrous Sulfate (FERROUS SULFATE) 325 MG DAILY P O Acetylcysteine (MUCOMYST FOR RT) 200 MG RTQ8H NE B Bisacodyl (DULCOLAX) 10 MG ONCE PRN RECTAL Magnesium Hydroxide (MILK OF MAGNESIA) 30 ML ONC E PRN PO Fentanyl Citrate (SUBLIMAZE) 50 MCG Q2H PRN PRN IV (DC) Atorvastatin Calcium (LIPITOR) 40 MG 2100 PO Melatonin (Melatonin) 6 MG ONCE ONE PO (DC) Methocarbamol (ROBAXIN) 500 MG ONCE ONE IV (DC) Sodium Chloride (SODIUM CHLORIDE 0.9%) 100 ML Calcium Gluconate/Sodium Chloride (Calcium Gluco facundo 1 GM/NS 50 mL) 50 ML ONCE ONE IV (DC) Insulin Human Regular (HUMAN INSULIN REG) 10 UNI TS ONCE ONE IV (DC) Fentanyl Citrate (SUBLIMAZE) 25 MCG ONCE ONE IV (DC) Insulin Human Lispro (HUMALOG) 0 AC HS SUBQ Clopidogrel Bisulfate (Plavix) 75 MG DAILY PO Polyethylene Glycol (MIRALAX) 17 GM DAILY PO Pantoprazole (PROTONIX) 40 MG DAILY@0600 PO Fentanyl Citrate (SUBLIMAZE) 50 MCG Q2H PRN PRN IV (DC) Aspirin (ASPIRIN) 81 MG DAILY PO Amiodarone HCl (CORDARONE) 200 MG TID PO Docusate Sodium (COLACE) 100 MG BID PO Gabapentin (NEURONTIN) 200 MG BID PO Metoprolol Tartrate (LOPRESSOR) 12.5 MG Q12HR PO Sennosides (Senna Lax 8.6 MG TABLET) 17.2 MG BED TIME PO Cefazolin Sodium (KEFZOL OR ANCEF) 6 GM ONCE ONE IV (DC) Sodium Chloride (SODIUM CHLORIDE 0.9%) 500 ML Acetaminophen (TYLENOL) 650 MG Q4H PRN PRN PO Acetaminophen (TYLENOL) 650 MG Q4H PRN PRN RECTA L Albumin Human (ALBUMINAR 25%) 25 GM ASDIR PRN IV (DC) Calcium Chloride (CALCIUM CHLORIDE) 1 GM ASDIR P RN IV Dextrose/Water (DEXTROSE 10% IN WATER) 125 ML DIR PRN IV (CKD) Dextrose/Water (DEXTROSE 10% IN WATER) 250 ML DIR PRN IV (CKD) Epinephrine (ADRENALIN CHLORIDE) 4 MG ASDIR IV Dextrose/Water (DEXTROSE 5% WATER) 246 ML Glucagon (GLUCAGON) 1 MG ASDIR PRN IM Ipratropium [place]on (ATROVENT) 500 MCG RTQ4H INH Magnesium Sulfate (MAGNESIUM SULFATE 4GM/SWFI 10 0ML) 100 ML ASDIR PRN IV Magnesium Sulfate (MAGNESIUM SULFATE 2GM/SWFI 50 ML) 50 ML ASDIR PRN IV Magnesium Sulfate/Dextrose (MAGNESIUM SULFATE 1G M/D5W 100ML) 100 ML ASDIR PRN IV Morphine Sulfate (morphine SULFATE) 4 MG Q2H PRN PRN IV Nitroglycerin/Dextrose (NITROGLYCERIN 50,000MCG/ D5W 250ML) 250 ML ASDIR IV Norepinephrine Bitartrate (NOREPINEPHRINE 8 MG/N S 250 ML) 250 ML TITRATE IV Ondansetron HCl (ZOFRAN) 4 MG Q6H PRN PRN IV Oxycodone HCl (ROXICODONE) 5 MG Q4H PRN PRN PO Oxycodone HCl (ROXICODONE) 10 MG Q4H PRN PRN PO Potassium Chloride (KCL 20MEQ/SWFI 100ML) 100 ML ASDIR PRN IV Sodium Bicarbonate (SODIUM BICARBONATE) 50 MEQ A SDIR PRN IV Sodium Chloride (SODIUM CHLORIDE 0.9%) 1,000 ML .Q20H IV Sodium Chloride (SODIUM CHLORIDE 0.9%) 250 ML Q2 4H IV Acetaminophen (TYLENOL EXTRA STRENGTH) 1,000 MG PREOP ONCALL PO (CKD) Gabapentin (NEURONTIN) 200 MG PREOP ONCALL PO (C KD) Lactated Ringer's (LACTATED RINGERS) 1,000 ML AZ EOP ONCALL IV Lidocaine HCl (LIDOCAINE HCL/PF) 2 ML PREOP ONCA LL LOCAL Lidocaine HCl (LIDOCAINE HCL/PF) 2 ML PREOP ONCA LL LOCAL Sodium Chloride (SODIUM CHLORIDE 0.9%) 500 ML AZ EOP ONCALL IV Sodium Chloride (SODIUM CHLORIDE) 5 ML ASDIR PRN IV Sodium Chloride (SODIUM CHLORIDE) 10 ML ASDIR AZ N IV Sodium Chloride (SODIUM CHLORIDE 0.9%) 250 ML DIR PRN IV Sodium Chloride (SODIUM CHLORIDE) 20 ML ASDIR IV Mupirocin (BACTROBAN 2% 22 GM OINTMENT) 1 APPLIC BID NASAL (DC) Results Findings/data: Laboratory Tests 01/04 01/03 0125 1603 Blood Gas Puncture Site Art Line Art Line O2 Saturation (90 - 100 %) 94.6 93.6 ABG pH (7.35 - 7.45) 7.382 7.337 L ABG pCO2 (35.0 - 45 mmHg) 43.0 44.6 ABG pO2 (80 - 100.0 mmHg) 80.7 72.4 L ABG PO2/FiO2 Ratio (mm/Hg) 252.18 ABG HCO3 (22.0 - 26.0 MMOL/L) 25.2 24.1 ABG Total CO2 26.5 25.5 ABG Base Excess (-4.0 - 4.0 MMOL/L) 0.4 -1.9 ABG Hematocrit (37.5 - 50.7 %) 39 38 ABG Hemoglobin (12.5 - 16.9 G/DL) 13.1 12.8 Michael Test N/A N/A Sodium (134 - 147 mmol/L) 135 133 L Potassium (3.4 - 5.0 mmol/L) 4.6 5.2 H Chloride (100 - 108 mmol/L) 100 100 Ionized Calcium (1.12 - 1.32 MMOL/L) 1.09 L 1.0 9 L Lactic Acid (0.9 - 1.7 mmol/l) 1.1 1.6 Temperature (F) 101 97.8 O2 Delivery Device Cannula Cannula FiO2 (%) 32 Laboratory Tests 01/04 01/04 01/04 01/04 01/04 1420 1149 0753 0400 0125 Chemistry Sodium (134 - 147 mEq/L) 134 136 Potassium (3.4 - 5.0 mEq/L) 4.4 4.6 Chloride (100 - 108 mEq/L) 103 103 Carbon Dioxide (21 - 33 mEq/l) 27 26 Anion Gap (0 - 20) 8 12 BUN (7 - 18 mg/dL) 17 22 H Creatinine (0.6 - 1.3 mg/dL) 0.9 1.1 POC Creatinine (0.8 - 1.3 mg/dL) 1.2 Glomerular Filtr Rate (90 - 95) 102.1 H 80.3 L Glucose (70 - 110 mg/dL) 146 H 171 H POC Glucose (70 - 110 MG/DL) 145 H 177 H POC Glucose (mg/dL) (70 - 110 MG/DL) 167 H Calcium (8.0 - 10.5 mg/dL) 7.6 L 8.1 Magnesium (1.80 - 2.40 mg/dL) 2.43 H Total Bilirubin (0.0 - 1.0 mg/dL) 1.30 H Direct Bilirubin (0.0 - 0.30 MG/DL) 0.60 H Indirect Bilirubin (MG/DL) 0.70 AST (15 - 37 IUnit/L) 47 H ALT (30 - 65 IUnit/L) 39 Total Alk Phosphatase (20 - 125 IUnit/L) 63 Total Protein (6.4 - 8.2 g/dL) 6.2 L Albumin (3.4 - 5.0 g/dL) 3.70 01/03 1603 Chemistry Sodium (134 - 147 mEq/L) 135 Potassium (3.4 - 5.0 mEq/L) 4.6 Chloride (100 - 108 mEq/L) 103 Carbon Dioxide (21 - 33 mEq/l) 26 Anion Gap (0 - 20) 11 BUN (7 - 18 mg/dL) 21 H Creatinine (0.6 - 1.3 mg/dL) 1.2 POC Creatinine (0.8 - 1.3 mg/dL) 1.4 H Glomerular Filtr Rate (90 - 95) 72.3 L Glucose (70 - 110 mg/dL) 150 H POC Glucose (mg/dL) (70 - 110 MG/DL) 211 H Calcium (8.0 - 10.5 mg/dL) 7.8 L Magnesium (1.80 - 2.40 mg/dL) 2.55 H Laboratory Tests 01/04 0400 Hematology WBC (4.5 - 11.0 x10 3/uL) 18.0 H RBC (4.00 - 5.60 x10 6/uL) 3.73 L Hgb (12.5 - 16.9 g/dL) 12.0 L Hct (37.5 - 50.7 %) 35.3 L MCV (81.0 - 99.0 fL) 94.6 MCH (27.0 - 33.0 pg) 32.2 MCHC (33.0 - 37.0 g/dL) 34.0 RDW (11.5 - 14.5 %) 13.5 Plt Count (150 - 400 x10 3/uL) 166 MPV (7.0 - 9.0 fL) 10.2 H Neut % (Auto) (56.0 - 77.0 %) 79.7 H Lymph % (Auto) (14.0 - 32.0 %) 7.9 L V[place] % (Auto) (4.8 - 9.0 %) 11.6 H Eos % (Auto) (0.3 - 3.7 %) 0.0 L Baso % (Auto) (0.0 - 2.0 %) 0.1 Neut # (Auto) (2.0 - 7.6 x10 3/uL) 14.29 H Lymph # (Auto) (1.0 - 3.8 x10 3/uL) 1.42 [place] # (Auto) (0.1 - 0.8 x10 3/uL) 2.09 H Eos # (Auto) (0.0 - 0.2 x10 3/uL) 0.00 Baso # (Auto) (0.0 - 0.2 x10 3/uL) 0.02 Abs Immat Gran (auto) (0.00 - 0.03 x10 3/uL) 0. 13 H Add Manual Diff NO Immature Gran % (0.0 - 2.0 %) 0.7 Nucleated RBC % (0 - 0 %) 0.0 Nucleated RBCs # (Man) (0.0 - 0.1 x10 3/uL) 0.0 0 Laboratory Tests 01/04/23 1420: [Embedded Image Not Available] 01/04/23 0400: [Embedded Image Not Available] 01/03/23 2000: [Embedded Image Not Available] Radiology data Recent Impressions: RADIOLOGY - XR CHEST 1 V 01/04 0201 Report Impression - Status: SIGNED Entered: 01/04/2023 0206 IMPRESSION: Moderately diminished lung volumes with perihila r and medial basilar opacities favored to reflect atelectasis . Superimposed pneumonia or edema not excluded. Impression By: [email or web address] - Abraham Wallace M.D. RADIOLOGY - XR CHEST 1 V 01/04 0500 Report Impression - Status: SIGNED Entered: 01/04/2023 0826 IMPRESSION: Grossly stable exam. Impression By: [email or web address] - Hilario Bentley M.D. Free Text Obj Notes Free Text Obj Notes: GEN: Patient is calm and in no distress NECK: Neck is supple, no JVD or thrush. No adeno jimbo. LUNGS: Coarse breath sounds, no wheezes, no rale s or crackles. HEART: S1/S2 regular, no murmurs are heard. No S 3 or rubs. ABDOMEN: Abdomen is soft, not tender. Bowel soun ds are present. EXT: No edema. No clubbing nor cyanosis noted. SKIN: Warm, with no rashes. NEURO: AAOx3, no focal deficits Treatment Prophylaxis Treatment Prophylaxis Drain(s)/tube(s): Drain(s)/tube(s): chest, urinary catheter Diagnosis, Assessment Plan Problem list/A P: 1. Hypertension 2. Coronary artery disease due to calcified cor onary lesion 3. Non-STEMI (non-ST elevated myocardial infarc tion) Free text A P: Acute pulmonary insufficiency following thoracic surgery Status post CABG x 4 (BURDICK-LAD, SVG-Ramus, SVG-O M, SVG-PDA) and ALAA Acute blood loss anemia Hypotension CAD Alcohol abuse Continue mechanical ventilation, vent settings r eviewed Titrate FiO2 to keep saturation more than 90%. Spontaneous breathing trial as soon as possible Wean to extubate Good spontaneous breathing trial Good weaning parameters The patient was extubated to nasal cannula and d oing well Follow ABGs and CXRs Keep off sedation Judicious pain control Norepinephrine drip Epinephrine drip Wean pressors to keep MAP more than 65 Give 1 bottle of albumin 5%, 250 cc Give 250 cc normal saline bolus Aspirin and Plavix Atorvastatin Metoprolol Follow lactate level Monitor chest tube output Monitor urine output and kidney function Monitor and replete electrolytes Perioperative antibiotics Bowel regimen Cardiac diet BG control with insulin gtt per protocol PT/OT VTE prophylaxis. Stress ulcer prophylaxis. Discussed with CV surgery and ICU team Critical care time 90 minutes 01/04 Neuro: Neurologically intact. Pain is better con trolled. Continue multimodal pain control. Respiratory: On 4 L nasal cannula. ABG and chest x-ray reviewed. A lot of atelectasis. Encourage incentive spirometry. Con tinue nebs. Added Mucomyst. Cardiovascular: Remains hemodynamically stable. Sinus rhythm. Continue beta- alejandra and amiodarone. Renal: Patient's creatinine has improved to base line 0.9. Good urine output. Discontinue Siddiqui. Continue to monitor the outpu t. not drinking that much GI: tolerating diet, BR, abdomen is soft ID: Patient white count is elevated. Is having l ow-grade fevers. Continue to monitor now for now. Discontinue Siddiqui and centr al line. Hem: monitor Hgb and CTs output. Discontinue ple ural chest tube. Endo: BG control with insulin sliding scale Misc: PTOT consult, DVT and GI ppx with DAPT and PPI Total critical care time 40 minutes spent treati ng the patient excluding any procedures performed Quality: [facility] Advanced Care Plan 65 or Older Discussed with: patient Electronically Signed by Rome Esparza MD on 0 01/04/23 at 1530 RPT #:[id number] END OF REPORT 2023-01-04 12:07:00-00:00 [facility] ([facility]) Pulmonology Progress Note REPORT#:[id number] REPORT STATUS: Signed DATE:01/04/23 TIME: 1207 PATIENT: SHEKHAR LOZADA UNIT #: [id number] ROOM/BED: [place] [id number] : 69 AGE: 52 SEX: M ATTEND: Sheila Crabtree MD ADM AUTHOR: Rod Hanccok WAITER/WAITRESS SECOND CLASS * ALL edits or amendments must be made on the [employer]/computer document * Rod Hancock 01/04/23 1207: Subjective Chief complaint: He is on 3 liter NC. One chest tube on water seal. Breathing is stable. No N/v/d. BP and HR stable. Siddiqui in placed. Review of Systems ROS Constitutional: fatigue, generalized weakness. Allergy/Immun: Denies: anaphylaxis, itching, rhinorrhea. Respiratory: Reports: KISER (dyspnea on exertion), SOB. Denies: hemoptysis, pleurisy, pleuritic pain, pneumonia, productive cough (spu jim). Cardiovascular: Reports: chest pain. Denies: KISER (dyspnea on exe rtion), orthopnea, palpitations. GI: Denies: constipation, GERD, hematochezia, melena . : Denies: flank pain, testicular swelling. Musculoskeletal: Denies: extremity pain, joint swelling, neck freeman n, thoracic pain. Heme: Denies: bleeding, bruising. Neuro: Denies: change in LOC, dizziness, focal weakness , gait problem, headache, spinning sensation, syncope. Objective General VS/I O: Last Documented: Result Date Time Pulse Ox 94 01/04 0853 O2 Delivery Nasal cannula 01/04 853 O2 Flow Rate 4 01/04 0853 B/P 149/61 01/05 232 B/P Mean 81 01/05 232 Temp 38.4 01/05 232 Pulse 85 01/05 232 Resp 22 01/05 232 FiO2 40 01/03 2032 24 hour I O ending at 0700: 01/04 0700 01/03 1900 Intake Total 1052.00 350.00 Output Total 575 855 Balance 477.00 -505.00 Intake, IV 252.00 350.00 Intake, Oral 800 Output, Chest 140 340 Tube Drainage Output, Urine 435 515 Patient 113.1 kg 110.677 kg Weight Weight Standing scale Measurement Method PATIENT WEIGHT: Weight (lb): 249 Weight (oz): 5.49 Weight (kg): 113.100 Medications: Active Meds + DC'd Last 24 Hrs Ipratropium [place] (ATROVENT) 500 MCG RTQ2H AZ N PRN INH Cyanocobalamin (Vitamin B-12 500 mcg tab) 500 MC G DAILY PO Ferrous Sulfate (FERROUS SULFATE) 325 MG DAILY P O Acetylcysteine (MUCOMYST FOR RT) 200 MG RTQ8H NE B Bisacodyl (DULCOLAX) 10 MG ONCE PRN RECTAL Magnesium Hydroxide (MILK OF MAGNESIA) 30 ML ONC E PRN PO Fentanyl Citrate (SUBLIMAZE) 50 MCG Q2H PRN PRN IV (DC) Atorvastatin Calcium (LIPITOR) 40 MG 2100 PO Melatonin (Melatonin) 6 MG ONCE ONE PO (DC) Methocarbamol (ROBAXIN) 500 MG ONCE ONE IV (DC) Sodium Chloride (SODIUM CHLORIDE 0.9%) 100 ML Calcium Gluconate/Sodium Chloride (Calcium Gluco facundo 1 GM/NS 50 mL) 50 ML ONCE ONE IV (DC) Insulin Human Regular (HUMAN INSULIN REG) 10 UNI TS ONCE ONE IV (DC) Fentanyl Citrate (SUBLIMAZE) 25 MCG ONCE ONE IV (DC) Insulin Human Lispro (HUMALOG) 0 AC HS SUBQ Clopidogrel Bisulfate (Plavix) 75 MG DAILY PO Polyethylene Glycol (MIRALAX) 17 GM DAILY PO Pantoprazole (PROTONIX) 40 MG DAILY@0600 PO Fentanyl Citrate (SUBLIMAZE) 50 MCG Q2H PRN PRN IV (DC) Aspirin (ASPIRIN) 81 MG DAILY PO Amiodarone HCl (CORDARONE) 200 MG TID PO Docusate Sodium (COLACE) 100 MG BID PO Gabapentin (NEURONTIN) 200 MG BID PO Metoprolol Tartrate (LOPRESSOR) 12.5 MG Q12HR PO Sennosides (Senna Lax 8.6 MG TABLET) 17.2 MG BED TIME PO Cefazolin Sodium (KEFZOL OR ANCEF) 6 GM ONCE ONE IV (DC) Sodium Chloride (SODIUM CHLORIDE 0.9%) 500 ML Acetaminophen (TYLENOL) 650 MG Q4H PRN PRN PO Acetaminophen (TYLENOL) 650 MG Q4H PRN PRN RECTA L Albumin Human (ALBUMINAR 25%) 25 GM ASDIR PRN IV (DC) Calcium Chloride (CALCIUM CHLORIDE) 1 GM ASDIR P RN IV Dextrose/Water (DEXTROSE 10% IN WATER) 125 ML DIR PRN IV (CKD) Dextrose/Water (DEXTROSE 10% IN WATER) 250 ML DIR PRN IV (CKD) Epinephrine (ADRENALIN CHLORIDE) 4 MG ASDIR IV Dextrose/Water (DEXTROSE 5% WATER) 246 ML Glucagon (GLUCAGON) 1 MG ASDIR PRN IM Ipratropium [place] (ATROVENT) 500 MCG RTQ4H INH Magnesium Sulfate (MAGNESIUM SULFATE 4GM/SWFI 10 0ML) 100 ML ASDIR PRN IV Magnesium Sulfate (MAGNESIUM SULFATE 2GM/SWFI 50 ML) 50 ML ASDIR PRN IV Magnesium Sulfate/Dextrose (MAGNESIUM SULFATE 1G M/D5W 100ML) 100 ML ASDIR PRN IV Morphine Sulfate (morphine SULFATE) 4 MG Q2H PRN PRN IV Nitroglycerin/Dextrose (NITROGLYCERIN 50,000MCG/ D5W 250ML) 250 ML ASDIR IV Norepinephrine Bitartrate (NOREPINEPHRINE 8 MG/N S 250 ML) 250 ML TITRATE IV Ondansetron HCl (ZOFRAN) 4 MG Q6H PRN PRN IV Oxycodone HCl (ROXICODONE) 5 MG Q4H PRN PRN PO Oxycodone HCl (ROXICODONE) 10 MG Q4H PRN PRN PO Potassium Chloride (KCL 20MEQ/SWFI 100ML) 100 ML ASDIR PRN IV Sodium Bicarbonate (SODIUM BICARBONATE) 50 MEQ A SDIR PRN IV Sodium Chloride (SODIUM CHLORIDE 0.9%) 1,000 ML .Q20H IV Sodium Chloride (SODIUM CHLORIDE 0.9%) 250 ML Q2 4H IV Acetaminophen (TYLENOL EXTRA STRENGTH) 1,000 MG PREOP ONCALL PO (CKD) Gabapentin (NEURONTIN) 200 MG PREOP ONCALL PO (C KD) Lactated Ringer's (LACTATED RINGERS) 1,000 ML AZ EOP ONCALL IV Lidocaine HCl (LIDOCAINE HCL/PF) 2 ML PREOP ONCA LL LOCAL Lidocaine HCl (LIDOCAINE HCL/PF) 2 ML PREOP ONCA LL LOCAL Sodium Chloride (SODIUM CHLORIDE 0.9%) 500 ML AZ EOP ONCALL IV Sodium Chloride (SODIUM CHLORIDE) 5 ML ASDIR PRN IV Sodium Chloride (SODIUM CHLORIDE) 10 ML ASDIR AZ N IV Sodium Chloride (SODIUM CHLORIDE 0.9%) 250 ML DIR PRN IV Sodium Chloride (SODIUM CHLORIDE) 20 ML ASDIR IV Mupirocin (BACTROBAN 2% 22 GM OINTMENT) 1 APPLIC BID NASAL (DC) Physical Exam General appearance: alert, awake, oriented Head/eyes: atraumatic, normocephalic, PERRLA Cardiovascular: normal heart sounds, normal S1/S 2, regular rate rhythm Respiratory/chest: aerating well, clear to auscultation, symmetric expansion, no distress Abdomen: soft, non-tender, no CVA tenderness Genitourinary: no bladder distention, no flank p ain Extremities: no clubbing, no cyanosis, no edema Musculoskeletal: no muscle spasm Neuro/ASBESTOS CLOTH INSPECTOR: alert, oriented X 3, CNII-XII intact Results Findings/Data: Laboratory Tests 01/04/23 0400: [Embedded Image Not Available] 01/03/231999: [Embedded Image Not Available] 01/03/23 1245: [Embedded Image Not Available] Laboratory Tests 01/04 01/03 0125 1603 Blood Gas Puncture Site Art Line Art Line O2 Saturation (90 - 100 %) 94.6 93.6 ABG pH (7.35 - 7.45) 7.382 7.337 L ABG pCO2 (35.0 - 45 mmHg) 43.0 44.6 ABG pO2 (80 - 100.0 mmHg) 80.7 72.4 L ABG PO2/FiO2 Ratio (mm/Hg) 252.18 ABG HCO3 (22.0 - 26.0 MMOL/L) 25.2 24.1 ABG Total CO2 26.5 25.5 ABG Base Excess (-4.0 - 4.0 MMOL/L) 0.4 -1.9 ABG Hematocrit (37.5 - 50.7 %) 39 38 ABG Hemoglobin (12.5 - 16.9 G/DL) 13.1 12.8 Michael Test N/A N/A Sodium (134 - 147 mmol/L) 135 133 L Potassium (3.4 - 5.0 mmol/L) 4.6 5.2 H Chloride (100 - 108 mmol/L) 100 100 Ionized Calcium (1.12 - 1.32 MMOL/L) 1.09 L 1. 09 L Lactic Acid (0.9 - 1.7 mmol/l) 1.1 1.6 Temperature (F) 101 97.8 O2 Delivery Device Cannula Cannula FiO2 (%) 32 Laboratory Tests 01/04 01/04 01/04 01/04 01/03 1149 0753 0400 0125 1999 Chemistry Sodium (134 - 147 mEq/L) 136 135 Potassium (3.4 - 5.0 mEq/L) 4.6 4.6 Chloride (100 - 108 mEq/L) 103 103 Carbon Dioxide (21 - 33 mEq/l) 26 26 Anion Gap (0 - 20) 12 11 BUN (7 - 18 mg/dL) 22 H 21 H Creatinine (0.6 - 1.3 mg/dL) 1.1 1.2 POC Creatinine (0.8 - 1.3 mg/dL) 1.2 Glomerular Filtr Rate (90 - 95) 80.3 L 72.3 L Glucose (70 - 110 mg/dL) 171 H 150 H POC Glucose (70 - 110 MG/DL) 145 H 177 H POC Glucose (mg/dL) (70 - 110 MG/DL) 167 H Calcium (8.0 - 10.5 mg/dL) 8.1 7.8 L Magnesium (1.80 - 2.40 mg/dL) 2.43 H 2.55 H Total Bilirubin (0.0 - 1.0 mg/dL) 1.30 H Direct Bilirubin (0.0 - 0.30 MG/DL) 0.60 H Indirect Bilirubin (MG/DL) 0.70 AST (15 - 37 IUnit/L) 47 H ALT (30 - 65 IUnit/L) 39 Total Alk Phosphatase (20 - 125 IUnit/L) 63 Total Protein (6.4 - 8.2 g/dL) 6.2 L Albumin (3.4 - 5.0 g/dL) 3.70 01/03 01/03 1603 1245 Chemistry Sodium (134 - 147 mEq/L) 136 Potassium (3.4 - 5.0 mEq/L) 5.2 H Chloride (100 - 108 mEq/L) 106 Carbon Dioxide (21 - 33 mEq/l) 23 Anion Gap (0 - 20) 12 BUN (7 - 18 mg/dL) 17 Creatinine (0.6 - 1.3 mg/dL) 1.5 H POC Creatinine (0.8 - 1.3 mg/dL) 1.4 H Glomerular Filtr Rate (90 - 95) 55.3 L Glucose (70 - 110 mg/dL) 176 H POC Glucose (mg/dL) (70 - 110 MG/DL) 211 H Calcium (8.0 - 10.5 mg/dL) 7.9 L Magnesium (1.80 - 2.40 mg/dL) 2.51 H Laboratory Tests 01/04 0400 Hematology WBC (4.5 - 11.0 x10 3/uL) 18.0 H RBC (4.00 - 5.60 x10 6/uL) 3.73 L Hgb (12.5 - 16.9 g/dL) 12.0 L Hct (37.5 - 50.7 %) 35.3 L MCV (81.0 - 99.0 fL) 94.6 MCH (27.0 - 33.0 pg) 32.2 MCHC (33.0 - 37.0 g/dL) 34.0 RDW (11.5 - 14.5 %) 13.5 Plt Count (150 - 400 x10 3/uL) 166 MPV (7.0 - 9.0 fL) 10.2 H Neut % (Auto) (56.0 - 77.0 %) 79.7 H Lymph % (Auto) (14.0 - 32.0 %) 7.9 L [place] % (Auto) (4.8 - 9.0 %) 11.6 H Eos % (Auto) (0.3 - 3.7 %) 0.0 L Baso % (Auto) (0.0 - 2.0 %) 0.1 Neut # (Auto) (2.0 - 7.6 x10 3/uL) 14.29 H Lymph # (Auto) (1.0 - 3.8 x10 3/uL) 1.42 [place] # (Auto) (0.1 - 0.8 x10 3/uL) 2.09 H Eos # (Auto) (0.0 - 0.2 x10 3/uL) 0.00 Baso # (Auto) (0.0 - 0.2 x10 3/uL) 0.02 Abs Immat Gran (auto) (0.00 - 0.03 x10 3/uL) 0. 13 H Add Manual Diff NO Immature Gran % (0.0 - 2.0 %) 0.7 Nucleated RBC % (0 - 0 %) 0.0 Nucleated RBCs # (Man) (0.0 - 0.1 x10 3/uL) 0.0 0 Radiology data: Recent Impressions: RADIOLOGY - XR CHEST 1 V 01/04 0201 Report Impression - Status: SIGNED Entered: 01/04/2023 0206 IMPRESSION: Moderately diminished lung volumes with perihila r and medial basilar opacities favored to reflect atelectasis . Superimposed pneumonia or edema not excluded. Impression By: [email or web address] - Abraham Wallace M.D. RADIOLOGY - XR CHEST 1 V 01/04 0500 Report Impression - Status: SIGNED Entered: 01/04/2023 0826 IMPRESSION: Grossly stable exam. Impression By: [email or web address] - Hilario Bentley M.D. Results: labs reviewed, vital signs reviewed, vi brandon signs stable, x-ray personally reviewed, current med profile rev'd Treatment Prophylaxis Treatment Prophylaxis Oxygen: room air Drain(s)/tube(s): Drain(s)/tube(s): chest, urinary catheter Diagnosis, Assessment Plan Free Text A P: Assessment and Plan: - Dyspnea due to Multivessel CAD and Emphysema. - Emphysema/COPD. - Multivessel CAD. - CP due to CAD. - HX of HTN. - Smoker. - S/p CABG x 4 (BURDICK-LAD, SVG-Ramus, SVG-OM, SVG -PDA), ALAA, EVH (RGSV) and Posterior pericartiotomy. Plan: CVICU. He is breathing stable. Chest tube on water seal. Siddiqui in placed. Will continue Monitor respiratory status, breath ing tx, o2 support. Pain meds. Antiemetics. Follow labs and replace as needed. SCDs for DVT ppx. Continue Home meds. Monitor. Code status: full code Plan discussed with: patient, admitting physicia n, consultants, nurse Quality: Gen Med Crit Care Advanced Care Plan 65 or Older Discussed with: patient TaesameerJessi 01/05/23 0035: Attestations Physician Attestation Agree w/findings plan: Patient seen and examined, I agree with the findings and plans as documented by Rod Hancock NP Electronically Signed by Rod Hancock WAITER/WAITRESS SECOND CLASS on at 1210 Electronically Signed by Jessi Chavez MD on 0 01/05/23 at 0047 RPT #:[id number] END OF REPORT 2023-01-04 10:57:00-00:00 [facility] Cardiothoracic Surgery Prog REPORT#:[id number] REPORT STATUS: Signed DATE:01/04/23 TIME: 1057 PATIENT: SHEKHAR LOZADA UNIT #: [id number] ROOM/BED: [place] [address] : 69 AGE: 52 SEX: M ATTEND: Sheila Crabtree MD ADM AUTHOR: Caro Bingham P * ALL edits or amendments must be made on the [employer]/computer document * General Post-op: day 2 Status post: 01/02/23 CABG x 4 (BURDICK-LAD, SVG-Ramus, SVG-OM, SVG-PDA) ALAA EVH (RGSV) Posterior pericartiotomy Subjective Chief complaint: Multi-vessel CAD- s/p CABG Comments: Complaining of back pain Review of Systems Constitutional: Denies: fever, malaise. Skin: Denies: rash. Eyes: Denies: redness, discharge, swelling. ENT: Denies: ear drainage, ear ringing. Respiratory: Denies: SOB, wheezing. Cardiovascular: Denies: chest pain, KISER (dyspnea on exertion), e sushila. GI: Denies: constipation, diarrhea. : Denies: hematuria, nocturia. Musculoskeletal: Denies: joint pain, joint swelling. Heme: Denies: bleeding, bruising. Endocrine: Denies: polydipsia, polyuria. Neuro: Denies: confusion, dizziness. All systems rev neg: except as marked Objective General VS/I O Last Documented: Result Date Time Pulse Ox 95 01/05 232 B/P 149/61 01/05 232 B/P Mean 81 01/05 232 Temp 101.1 01/05 232 Pulse 85 01/05 232 Resp 22 01/05 232 O2 Delivery High flow nasal cannula 01/03 2045 O2 Flow Rate 3 01/03 2045 FiO2 40 01/03 2032 24 hour I O ending at 0700: 01/04 0700 01/03 1900 Intake Total 1052.00 350.00 Output Total 575 855 Balance 477.00 -505.00 Intake, IV 252.00 350.00 Intake, Oral 800 Output, Chest 140 340 Tube Drainage Output, Urine 435 515 Patient 249 lb 244 lb Weight Weight Standing scale Measurement Method PATIENT WEIGHT: Weight (lb): 249 Weight (oz): 5.49 Weight (kg): 113.100 Physical Exam General appearance: alert, oriented, pleasant, m ental status normal, no respiratory distress Wound/incision: Location: sternal Site condition: dressing clean dry, dressing in tact HEENT: anicteric, mucosal membranes moist Neck: full range of motion, non-tender Cardiovascular: BP/pulses equal bilat., regular rate rhythm Respiratory: crackles, decreased breath sounds, aerating well, symmetric expansion, no distress Abdomen: soft, non-tender Extremities: dry, moves all Musculoskeletal: full range of motion, painless range of motion Neuro/ASBESTOS CLOTH INSPECTOR: alert, oriented X 3, normal speech, n o motor deficits Skin: dry, intact Psychiatry: normal affect, normal mood Current Medications Medications: Active Meds + DC'd Last 24 Hrs Ipratropium [place] (ATROVENT) 500 MCG RTQ2H PRN PRN INH Cyanocobalamin (Vitamin B-12 500 mcg tab) 500 MC G DAILY PO Ferrous Sulfate (FERROUS SULFATE) 325 MG DAILY P O Acetylcysteine (MUCOMYST FOR RT) 200 MG RTQ8H NE B Bisacodyl (DULCOLAX) 10 MG ONCE PRN RECTAL Magnesium Hydroxide (MILK OF MAGNESIA) 30 ML ONC E PRN PO Fentanyl Citrate (SUBLIMAZE) 50 MCG Q2H PRN PRN IV (DC) Atorvastatin Calcium (LIPITOR) 40 MG 2100 PO Melatonin (Melatonin) 6 MG ONCE ONE PO (DC) Methocarbamol (ROBAXIN) 500 MG ONCE ONE IV (DC) Sodium Chloride (SODIUM CHLORIDE 0.9%) 100 ML Calcium Gluconate/Sodium Chloride (Calcium Gluco facundo 1 GM/NS 50 mL) 50 ML ONCE ONE IV (DC) Insulin Human Regular (HUMAN INSULIN REG) 10 UNI TS ONCE ONE IV (DC) Fentanyl Citrate (SUBLIMAZE) 25 MCG ONCE ONE IV (DC) Insulin Human Lispro (HUMALOG) 0 AC HS SUBQ Tramadol HCl (ULTRAM) 50 MG ONCE ONE PO (DC) Clopidogrel Bisulfate (Plavix) 75 MG DAILY PO Polyethylene Glycol (MIRALAX) 17 GM DAILY PO Pantoprazole (PROTONIX) 40 MG DAILY@0600 PO Fentanyl Citrate (SUBLIMAZE) 50 MCG Q2H PRN PRN IV (DC) Aspirin (ASPIRIN) 81 MG DAILY PO Amiodarone HCl (CORDARONE) 200 MG TID PO Docusate Sodium (COLACE) 100 MG BID PO Gabapentin (NEURONTIN) 200 MG BID PO Metoprolol Tartrate (LOPRESSOR) 12.5 MG Q12HR PO Sennosides (Senna Lax 8.6 MG TABLET) 17.2 MG BED TIME PO Cefazolin Sodium (KEFZOL OR ANCEF) 6 GM ONCE ONE IV (DC) Sodium Chloride (SODIUM CHLORIDE 0.9%) 500 ML Acetaminophen (TYLENOL) 650 MG Q4H PRN PRN PO Acetaminophen (TYLENOL) 650 MG Q4H PRN PRN RECTA L Albumin Human (ALBUMINAR 25%) 25 GM ASDIR PRN IV (DC) Calcium Chloride (CALCIUM CHLORIDE) 1 GM ASDIR P RN IV Dextrose/Water (DEXTROSE 10% IN WATER) 125 ML DIR PRN IV (CKD) Dextrose/Water (DEXTROSE 10% IN WATER) 250 ML DIR PRN IV (CKD) Epinephrine (ADRENALIN CHLORIDE) 4 MG ASDIR IV Dextrose/Water (DEXTROSE 5% WATER) 246 ML Glucagon (GLUCAGON) 1 MG ASDIR PRN IM Insulin Human Regular (HumuLIN R) 100 UNIT ASDIR IV (DC) Sodium Chloride (SODIUM CHLORIDE 0.9%) 99 ML Ipratropium [place] (ATROVENT) 500 MCG RTQ4H INH Magnesium Sulfate (MAGNESIUM SULFATE 4GM/SWFI 10 0ML) 100 ML ASDIR PRN IV Magnesium Sulfate (MAGNESIUM SULFATE 2GM/SWFI 50 ML) 50 ML ASDIR PRN IV Magnesium Sulfate/Dextrose (MAGNESIUM SULFATE 1G M/D5W 100ML) 100 ML ASDIR PRN IV Morphine Sulfate (morphine SULFATE) 4 MG Q2H PRN PRN IV Nitroglycerin/Dextrose (NITROGLYCERIN 50,000MCG/ D5W 250ML) 250 ML ASDIR IV Norepinephrine Bitartrate (NOREPINEPHRINE 8 MG/N S 250 ML) 250 ML TITRATE IV Ondansetron HCl (ZOFRAN) 4 MG Q6H PRN PRN IV Oxycodone HCl (ROXICODONE) 5 MG Q4H PRN PRN PO Oxycodone HCl (ROXICODONE) 10 MG Q4H PRN PRN PO Potassium Chloride (KCL 20MEQ/SWFI 100ML) 100 ML ASDIR PRN IV Sodium Bicarbonate (SODIUM BICARBONATE) 50 MEQ A SDIR PRN IV Sodium Chloride (SODIUM CHLORIDE 0.9%) 1,000 ML .Q20H IV Sodium Chloride (SODIUM CHLORIDE 0.9%) 250 ML Q2 4H IV Acetaminophen (TYLENOL EXTRA STRENGTH) 1,000 MG PREOP ONCALL PO (CKD) Gabapentin (NEURONTIN) 200 MG PREOP ONCALL PO (C KD) Lactated Ringer's (LACTATED RINGERS) 1,000 ML AZ EOP ONCALL IV Lidocaine HCl (LIDOCAINE HCL/PF) 2 ML PREOP ONC ALL LOCAL Lidocaine HCl (LIDOCAINE HCL/PF) 2 ML PREOP ONCA LL LOCAL Sodium Chloride (SODIUM CHLORIDE 0.9%) 500 ML AZ EOP ONCALL IV Sodium Chloride (SODIUM CHLORIDE) 5 ML ASDIR PRN IV Sodium Chloride (SODIUM CHLORIDE) 10 ML ASDIR AZ N IV Sodium Chloride (SODIUM CHLORIDE 0.9%) 250 ML DIR PRN IV Sodium Chloride (SODIUM CHLORIDE) 20 ML ASDIR IV Mupirocin (BACTROBAN 2% 22 GM OINTMENT) 1 APPLIC BID NASAL (DC) Results Findings/Data: Laboratory Tests 01/04 01/03 0125 1603 Blood Gas Puncture Site Art Line Art Line O2 Saturation (90 - 100 %) 94.6 93.6 ABG pH (7.35 - 7.45) 7.382 7.337 L ABG pCO2 (35.0 - 45 mmHg) 43.0 44.6 ABG pO2 (80 - 100.0 mmHg) 80.7 72.4 L ABG PO2/FiO2 Ratio (mm/Hg) 252.18 ABG HCO3 (22.0 - 26.0 MMOL/L) 25.2 24.1 ABG Total CO2 26.5 25.5 ABG Base Excess (-4.0 - 4.0 MMOL/L) 0.4 -1.9 ABG Hematocrit (37.5 - 50.7 %) 39 38 ABG Hemoglobin (12.5 - 16.9 G/DL) 13.1 12.8 Michael Test N/A N/A Sodium (134 - 147 mmol/L) 135 133 L Potassium (3.4 - 5.0 mmol/L) 4.6 5.2 H Chloride (100 - 108 mmol/L) 100 100 Ionized Calcium (1.12 - 1.32 MMOL/L) 1.09 L 1.0 9 L Lactic Acid (0.9 - 1.7 mmol/l) 1.1 1.6 Temperature (F) 101 97.8 O2 Delivery Device Cannula Cannula FiO2 (%) 32 Laboratory Tests 01/04 01/04 01/04 01/03 01/03 0753 0400 0125 1999 1603 Chemistry Sodium (134 - 147 mEq/L) 136 135 Potassium (3.4 - 5.0 mEq/L) 4.6 4.6 Chloride (100 - 108 mEq/L) 103 103 Carbon Dioxide (21 - 33 mEq/l) 26 26 Anion Gap (0 - 20) 12 11 BUN (7 - 18 mg/dL) 22 H 21 H Creatinine (0.6 - 1.3 mg/dL) 1.1 1.2 POC Creatinine (0.8 - 1.3 mg/dL) 1.2 1.4 H Glomerular Filtr Rate (90 - 95) 80.3 L 72.3 L Glucose (70 - 110 mg/dL) 171 H 150 H POC Glucose (70 - 110 MG/DL) 177 H POC Glucose (mg/dL) (70 - 110 MG/DL) 167 H 211 H Calcium (8.0 - 10.5 mg/dL) 8.1 7.8 L Magnesium (1.80 - 2.40 mg/dL) 2.43 H 2.55 H Total Bilirubin (0.0 - 1.0 mg/dL) 1.30 H Direct Bilirubin (0.0 - 0.30 MG/DL) 0.60 H Indirect Bilirubin (MG/DL) 0.70 AST (15 - 37 IUnit/L) 47 H ALT (30 - 65 IUnit/L) 39 Total Alk Phosphatase (20 - 125 IUnit/L) 63 Total Protein (6.4 - 8.2 g/dL) 6.2 L Albumin (3.4 - 5.0 g/dL) 3.70 01/03 1245 Chemistry Sodium (134 - 147 mEq/L) 136 Potassium (3.4 - 5.0 mEq/L) 5.2 H Chloride (100 - 108 mEq/L) 106 Carbon Dioxide (21 - 33 mEq/l) 23 Anion Gap (0 - 20) 12 BUN (7 - 18 mg/dL) 17 Creatinine (0.6 - 1.3 mg/dL) 1.5 H Glomerular Filtr Rate (90 - 95) 55.3 L Glucose (70 - 110 mg/dL) 176 H Calcium (8.0 - 10.5 mg/dL) 7.9 L Magnesium (1.80 - 2.40 mg/dL) 2.51 H Laboratory Tests 01/04 0400 Hematology WBC (4.5 - 11.0 x10 3/uL) 18.0 H RBC (4.00 - 5.60 x10 6/uL) 3.73 L Hgb (12.5 - 16.9 g/dL) 12.0 L Hct (37.5 - 50.7 %) 35.3 L MCV (81.0 - 99.0 fL) 94.6 MCH (27.0 - 33.0 pg) 32.2 MCHC (33.0 - 37.0 g/dL) 34.0 RDW (11.5 - 14.5 %) 13.5 Plt Count (150 - 400 x10 3/uL) 166 MPV (7.0 - 9.0 fL) 10.2 H Neut % (Auto) (56.0 - 77.0 %) 79.7 H Lymph % (Auto) (14.0 - 32.0 %) 7.9 L [place] % (Auto) (4.8 - 9.0 %) 11.6 H Eos % (Auto) (0.3 - 3.7 %) 0.0 L Baso % (Auto) (0.0 - 2.0 %) 0.1 Neut # (Auto) (2.0 - 7.6 x10 3/uL) 14.29 H Lymph # (Auto) (1.0 - 3.8 x10 3/uL) 1.42 [place] # (Auto) (0.1 - 0.8 x10 3/uL) 2.09 H Eos # (Auto) (0.0 - 0.2 x10 3/uL) 0.00 Baso # (Auto) (0.0 - 0.2 x10 3/uL) 0.02 Abs Immat Gran (auto) (0.00 - 0.03 x10 3/uL) 0 .13 H Add Manual Diff NO Immature Gran % (0.0 - 2.0 %) 0.7 Nucleated RBC % (0 - 0 %) 0.0 Nucleated RBCs # (Man) (0.0 - 0.1 x10 3/uL) 0.0 0 Radiology data: Recent Impressions: RADIOLOGY - XR CHEST 1 V 01/04 0201 Report Impression - Status: SIGNED Entered: 01/04/2023 0206 IMPRESSION: Moderately diminished lung volumes with perihila r and medial basilar opacities favored to reflect atelectasis . Superimposed pneumonia or edema not excluded. Impression By: [email or web address] - Abraham Wallace M.D. RADIOLOGY - XR CHEST 1 V 01/04 0500 Report Impression - Status: SIGNED Entered: 01/04/2023 0826 IMPRESSION: Grossly stable exam. Impression By: [email or web address] - Hilario Bentley M.D. Quality: Trauma Gen Surg Advanced Care Plan 65 or Older Discussed with: patient Diagnosis, Assessment Plan Hospital course to date: This is a 52-year-old gentle man with a past medical history of hypertension who initially presented to an outside hospital with complaints of back pain, and chest pains. He reports the back pain as mid upper back pain that occurred over the last couple of weeks. Usually pain is worse with gonzalez ging position The patient reports he start ed to develop chest pains located midsternal for the past 2 weeks. He denies any radiating symptoms. Describes the chest pains as a heaviness, squeez ing sensation. Denies any syncope, palpitations. Denies any nausea vomitin g or diaphoresis. Patient underwent left heart catheterization by Dr. Felton at [facility] this showed multi vessel CAD with a 90% LAD, 60-70% left main, 70-80% circumflex. An echocardiogram was also done at [facility] on 12/28/2022. This showed a normal left ventricular ejection fractio n of 55-60%, moderate LVH, mild mitral regurgitation, grade 1 diastolic dysfunction. The patient does admit to sm oking 1-2 times per week. Does admit to alcohol 1-2 times per week. Patient does have a strong famil y history of coronary artery disease in his father and his grandmother. Denies any surgical history, Review of the records from [facility] show the p atgeronimo was admitted with a troponin peak of 483. Hemoglobin A1c was noted t o be 5.5. Renal function appears normal. Patient was transferred to [facility] for khai luation for coronary bypass graft surgery. Hemoglobin A1c noted to be 5.[address] [facility] Assessment/plan 1.coronary artery disease Begin work-up for coronary artery bypass graft with appropriate studies. 2. Hypertension 3. Chest pains Patient has been seen and examined by Dr. Jose fatima. Work-up underway for coronary artery bypass graft surgery. Further recommendations to follow 12/31/22 Patient resting comfortable denies pain. AAOx3 Respiratory: 100% oxygen on room air. Cardiac: Remains sinus rhythm GI: Denies constipation diarrhea positive bowel movement. : Voiding well. 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 Likely consider coronary artery bypass surgery e preet next week. Patient was seen and examine d by Dr. Crabtree. Further recommendations to follow 01/01 Patient resting comfortable denies pain. AAOx3 Respiratory: 100% oxygen on room air. Cardiac: Remains sinus rhythm GI: Denies constipation or diarrhea, positive ramon wel movement. : Voiding well. 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 Pulmonary consulted for history of smoking and a bnormal CT suggestive of emphysema. PFT hopefully to be completed in the morning. STS 0.39% Patient was seen and examine d by Dr. Crabtree. Further recommendations to follow Coronary artery bypass graft surgery was discuss ed with the patient. The risk of the operation including , bleeding, infe ction, heart attack, stroke, pneumonia, renal failure, dialysis, prol onged ICU stay, car tracheostomy, need for long-term rehabilitation were all discussed with the patient. Patient's questions were answered and the patient agreed t o proceed with surgery. 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 Crabtree, discussed plan of care with multidisciplinary team. 01/04 Patient is alert and oriented, up in the recline r, complaining of back pain Left pleural chest tube discontinued to minimize pain and facilitate deep breathing Multimodal pain control Chest x-ray showed atelectasis. Wean O2 as delvis ated, encourage I-S and ambulation Pulmonary toilet, Mucomyst Discontinue central line Normal renal function, discontinue Siddiqui cathete r Glycemic control Keep in CVICU for close monitoring Patient seen and plan reviewed with the Bro multidisciplinary team at [phone] at [phone] RPT #:[id number] END OF REPORT 2023-01-04 09:39:00-00:00 [facility] Cardiology Progress Note REPORT#:[id number] REPORT STATUS: Signed DATE:01/04/23 TIME: 938 PATIENT: SHEKHAR LOZADA UNIT #: [id number] ROOM/B[address] : [birth year] AGE: 52 SEX: M ATTEND: Sheila Crabtree MD ADM AUTHOR: Milagros Weaver MD * ALL edits or amendments must be made on the el [employer]/computer document * Objective General VS/I O: 24 hour I O ending at 0700: 01/04 0700 01/03 1900 Intake Total 1052.00 350.00 Output Total 575 855 Balance 477.00 -505.00 Intake, IV 252.00 350.00 Intake, Oral 800 Output, Chest 140 340 Tube Drainage Output, Urine 435 515 Patient 113.1 kg 110.677 kg Weight Weight Standing scale Measurement Method Vital Signs: Date Time Temp Pulse Resp B/P B/P Pulse O2 O2 Flow FiO2 Mean Ox Delivery Rate 01/04 0232 101.1 85 22 149/61 81 95 01/04 0230 137/71 98 01/04 0230 101.1 85 23 149/62 81 95 01/04 0215 101.1 84 23 142/62 80 93 01/04 0200 125/73 93 01/04 0200 101.3 86 26 130/63 80 93 01/04 0145 101.3 87 19 133/63 81 93 01/04 0130 130/62 79 01/04 0130 101.3 87 20 119/71 90 91 01/04 0115 101.3 86 26 142/60 80 92 01/04 0100 146/60 79 01/04 0100 101.3 84 23 131/64 90 92 01/04 0045 101.3 86 24 128/63 79 92 01/04 0031 140/64 82 / 0031 101.5 85 145/64 92 94 01/04 0030 101.5 85 26 142/65 82 94 01/04 0015 101.5 85 25 143/66 83 92 / 0001 133/62 79 01/04 0001 101.5 87 13 147/72 101 91 01/04 0000 101.5 86 20 137/63 80 91 01/03 2345 101.5 87 27 149/69 87 93 01/03 2330 130/63 79 01/03 2330 101.5 86 23 109/66 82 90 01/03 2315 101.5 86 23 122/61 76 92 03/21 2300 127/61 76 03/21 2300 101.3 87 22 105/60 76 91 / 2245 101.1 89 21 134/65 84 92 03/ 2231 101.1 87 20 148/62 81 92 03/21 2230 151/62 81 03/21 2230 101.1 87 22 121/58 81 92 03/21 2217 141/62 81 03/ 2217 101.3 86 22 113/60 80 91 03/21 2200 91 29 130/58 77 03/ 2145 100.9 86 23 138/68 86 92 / 2130 100.9 87 24 144/70 89 92 / 2115 100.9 86 25 139/68 86 91 / 2100 139/69 87 / 2100 100.9 85 24 114/69 87 92 01/03 2045 100.8 84 23 139/69 87 92 01/03 2045 92 High flow 3 nasal cannula 01/03 2030 100.8 84 22 139/68 86 91 01/03 2015 100.6 85 25 135/67 85 90 01/04 2000 99.1 031999 Nasal 3 cannula 01/04 2000 140/63 83 01/04 2000 100.2 83 24 119/71 91 92 01/03 1957 100.4 84 24 137/63 82 92 /21 1945 100.0 82 21 141/63 83 93 /21 1930 100.0 81 20 138/62 81 92 / 1915 100.6 82 22 143/68 86 92 /21 1900 139/67 83 03/21 1900 100.4 82 23 113/69 83 92 03/21 1621 99.9 78 15 125/65 80 93 03/21 1600 97.8 03/ 1600 99.9 79 17 103/66 79 93 03/21 1530 100.0 76 14 97/56 69 91 03/21 1500 100.2 79 19 97/53 69 93 03/21 1430 99.7 79 25 94/53 70 91 03/21 1421 99.9 80 21 130/61 77 92 03/21 1415 128/59 77 03/21 1415 99.9 81 22 103/55 71 92 03/21 1400 120/57 73 03/21 1400 100.2 81 22 105/57 78 91 03/ 1345 114/60 73 03/ 1345 100.0 79 22 97/52 68 92 03/ 1330 116/59 75 03/ 1330 99.9 78 26 113/58 74 93 /21 1315 116/59 74 03/ 1315 100.0 78 20 107/63 80 93 03/21 1300 115/60 75 03/ 1300 100.2 78 23 105/59 77 93 / 1245 118/63 77 / 1245 100.6 79 25 101/56 72 92 / 1230 100.6 80 30 107/60 73 94 03/ 1215 114/68 80 03/ 1215 100.6 77 23 96/61 74 94 / 1201 104/62 74 / 1201 100.4 75 16 91/57 68 94 / 1200 97.8 03/ 1200 100.4 75 12 105/62 75 94 03/ 1130 93/58 68 / 1130 100.2 75 14 94/54 69 92 / 1100 100.4 77 19 96/58 72 93 03/ 1030 100.0 76 19 103/62 75 95 03/21 1000 100.0 76 16 103/52 66 93 PATIENT WEIGHT: Weight (lb): 249 Weight (oz): 5.49 Weight (kg): 113.100 Medications: Active Meds + DC'd Last 24 Hrs Ipratropium Afton (ATROVENT) 500 MCG RTQ2H PRN PRN INH Cyanocobalamin (Vitamin B-12 500 mcg tab) 500 MC G DAILY PO Ferrous Sulfate (FERROUS SULFATE) 325 MG DAILY P O Bisacodyl (DULCOLAX) 10 MG ONCE PRN RECTAL Magnesium Hydroxide (MILK OF MAGNESIA) 30 ML ONC E PRN PO Fentanyl Citrate (SUBLIMAZE) 50 MCG Q2H PRN PRN IV (DC) Atorvastatin Calcium (LIPITOR) 40 MG 2100 PO Melatonin (Melatonin) 6 MG ONCE ONE PO (DC) Methocarbamol (ROBAXIN) 500 MG ONCE ONE IV (DC) Sodium Chloride (SODIUM CHLORIDE 0.9%) 100 ML Calcium Gluconate/Sodium Chloride (Calcium Gluco facundo 1 GM/NS 50 mL) 50 ML ONCE ONE IV (DC) Insulin Human Regular (HUMAN INSULIN REG) 10 UNI TS ONCE ONE IV (DC) Fentanyl Citrate (SUBLIMAZE) 25 MCG ONCE ONE IV (DC) Insulin Human Lispro (HUMALOG) 0 AC HS SUBQ Tramadol HCl (ULTRAM) 50 MG ONCE ONE PO (DC) Clopidogrel Bisulfate (Plavix) 75 MG DAILY PO Polyethylene Glycol (MIRALAX) 17 GM DAILY PO Pantoprazole (PROTONIX) 40 MG DAILY@0600 PO Fentanyl Citrate (SUBLIMAZE) 50 MCG Q2H PRN PRN IV (DC) Aspirin (ASPIRIN) 81 MG DAILY PO Amiodarone HCl (CORDARONE) 200 MG TID PO Docusate Sodium (COLACE) 100 MG BID PO Gabapentin (NEURONTIN) 200 MG BID PO Metoprolol Tartrate (LOPRESSOR) 12.5 MG Q12HR PO Sennosides (Senna Lax 8.6 MG TABLET) 17.2 MG BED TIME PO Cefazolin Sodium (KEFZOL OR ANCEF) 6 GM ONCE ONE IV (DC) Sodium Chloride (SODIUM CHLORIDE 0.9%) 500 ML Acetaminophen (TYLENOL) 650 MG Q4H PRN PRN PO Acetaminophen (TYLENOL) 650 MG Q4H PRN PRN RECTA L Albumin Human (ALBUMINAR 25%) 25 GM ASDIR PRN IV (DC) Calcium Chloride (CALCIUM CHLORIDE) 1 GM ASDIR P RN IV Dextrose/Water (DEXTROSE 10% IN WATER) 125 ML DIR PRN IV (CKD) Dextrose/Water (DEXTROSE 10% IN WATER) 250 ML DIR PRN IV (CKD) Epinephrine (ADRENALIN CHLORIDE) 4 MG ASDIR IV Dextrose/Water (DEXTROSE 5% WATER) 246 ML Glucagon (GLUCAGON) 1 MG ASDIR PRN IM Insulin Human Regular (HumuLIN R) 100 UNIT ASDIR IV (DC) Sodium Chloride (SODIUM CHLORIDE 0.9%) 99 ML Ipratropium Afton (ATROVENT) 500 MCG RTQ4H INH Magnesium Sulfate (MAGNESIUM SULFATE 4GM/SWFI 10 0ML) 100 ML ASDIR PRN IV Magnesium Sulfate (MAGNESIUM SULFATE 2GM/SWFI 50 ML) 50 ML ASDIR PRN IV Magnesium Sulfate/Dextrose (MAGNESIUM SULFATE 1G M/D5W 100ML) 100 ML ASDIR PRN IV Morphine Sulfate (morphine SULFATE) 4 MG Q2H PRN PRN IV Nitroglycerin/Dextrose (NITROGLYCERIN 50,000MCG/ D5W 250ML) 250 ML ASDIR IV Norepinephrine Bitartrate (NOREPINEPHRINE 8 MG/N S 250 ML) 250 ML TITRATE IV Ondansetron HCl (ZOFRAN) 4 MG Q6H PRN PRN IV Oxycodone HCl (ROXICODONE) 5 MG Q4H PRN PRN PO Oxycodone HCl (ROXICODONE) 10 MG Q4H PRN PRN PO Potassium Chloride (KCL 20MEQ/SWFI 100ML) 100 ML ASDIR PRN IV Sodium Bicarbonate (SODIUM BICARBONATE) 50 MEQ A SDIR PRN IV Sodium Chloride (SODIUM CHLORIDE 0.9%) 1,000 ML .Q20H IV Sodium Chloride (SODIUM CHLORIDE 0.9%) 250 ML Q2 4H IV Acetaminophen (TYLENOL EXTRA STRENGTH) 1,000 MG PREOP ONCALL PO (CKD) Gabapentin (NEURONTIN) 200 MG PREOP ONCALL PO ( CKD) Lactated Ringer's (LACTATED RINGERS) 1,000 ML AZ EOP ONCALL IV Lidocaine HCl (LIDOCAINE HCL/PF) 2 ML PREOP ONCA LL LOCAL Lidocaine HCl (LIDOCAINE HCL/PF) 2 ML PREOP ONCA LL LOCAL Sodium Chloride (SODIUM CHLORIDE 0.9%) 500 ML AZ EOP ONCALL IV Sodium Chloride (SODIUM CHLORIDE) 5 ML ASDIR PRN IV Sodium Chloride (SODIUM CHLORIDE) 10 ML ASDIR AZ N IV Sodium Chloride (SODIUM CHLORIDE 0.9%) 250 ML DIR PRN IV Sodium Chloride (SODIUM CHLORIDE) 20 ML ASDIR I V Mupirocin (BACTROBAN 2% 22 GM OINTMENT) 1 APPLIC BID NASAL (DC) Physical Exam General appearance: alert, awake Neck: full range of motion, non-tender, supple/n o meningismus, no bruit/NL carotids, no JVD Cardiovascular: CV assessment: pedal edema, regular rate and rh ythm Respiratory: decreased breath sounds, on oxygen, no distress Abdomen: non-tender, obese Genitourinary: urinary catheter, urine Lower extremity: LE assessment: edema Musculoskeletal: normal inspection Neuro/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 CLOTH INSPECTOR: alert, oriented X 3, normal speech Skin: dry Psychiatry: normal affect, normal mood Results Findings/Data: Laboratory Tests 01/04 01/03 0125 1603 Blood Gas Puncture Site Art Line Art Line O2 Saturation (90 - 100 %) 94.6 93.6 ABG pH (7.35 - 7.45) 7.382 7.337 L ABG pCO2 (35.0 - 45 mmHg) 43.0 44.6 ABG pO2 (80 - 100.0 mmHg) 80.7 72.4 L ABG PO2/FiO2 Ratio (mm/Hg) 252.18 ABG HCO3 (22.0 - 26.0 MMOL/L) 25.2 24.1 ABG Total CO2 26.5 25.5 ABG Base Excess (-4.0 - 4.0 MMOL/L) 0.4 -1.9 ABG Hematocrit (37.5 - 50.7 %) 39 38 ABG Hemoglobin (12.5 - 16.9 G/DL) 13.1 12.8 Michael Test N/A N/A Sodium (134 - 147 mmol/L) 135 133 L Potassium (3.4 - 5.0 mmol/L) 4.6 5.2 H Chloride (100 - 108 mmol/L) 100 100 Ionized Calcium (1.12 - 1.32 MMOL/L) 1.09 L 1.0 9 L Lactic Acid (0.9 - 1.7 mmol/l) 1.1 1.6 Temperature (F) 101 97.8 O2 Delivery Device Cannula Cannula FiO2 (%) 32 Laboratory Tests 01/04 01/04 01/04 01/03 01/03 0753 0400 0125 1999 1603 Chemistry Sodium (134 - 147 mEq/L) 136 135 Potassium (3.4 - 5.0 mEq/L) 4.6 4.6 Chloride (100 - 108 mEq/L) 103 103 Carbon Dioxide (21 - 33 mEq/l) 26 26 Anion Gap (0 - 20) 12 11 BUN (7 - 18 mg/dL) 22 H 21 H Creatinine (0.6 - 1.3 mg/dL) 1.1 1.2 POC Creatinine (0.8 - 1.3 mg/dL) 1.2 1.4 H Glomerular Filtr Rate (90 - 95) 80.3 L 72.3 L Glucose (70 - 110 mg/dL) 171 H 150 H POC Glucose (70 - 110 MG/DL) 177 H POC Glucose (mg/dL) (70 - 110 MG/DL) 167 H 211 H Calcium (8.0 - 10.5 mg/dL) 8.1 7.8 L Magnesium (1.80 - 2.40 mg/dL) 2.43 H 2.55 H Total Bilirubin (0.0 - 1.0 mg/dL) 1.30 H Direct Bilirubin (0.0 - 0.30 MG/DL) 0.60 H Indirect Bilirubin (MG/DL) 0.70 AST (15 - 37 IUnit/L) 47 H ALT (30 - 65 IUnit/L) 39 Total Alk Phosphatase (20 - 125 63 IUnit/L) Total Protein (6.4 - 8.2 g/dL) 6.2 L Albumin (3.4 - 5.0 g/dL) 3.70 01/03 1245 Chemistry Sodium (134 - 147 mEq/L) 136 Potassium (3.4 - 5.0 mEq/L) 5.2 H Chloride (100 - 108 mEq/L) 106 Carbon Dioxide (21 - 33 mEq/l) 23 Anion Gap (0 - 20) 12 BUN (7 - 18 mg/dL) 17 Creatinine (0.6 - 1.3 mg/dL) 1.5 H Glomerular Filtr Rate (90 - 95) 55.3 L Glucose (70 - 110 mg/dL) 176 H Calcium (8.0 - 10.5 mg/dL) 7.9 L Magnesium (1.80 - 2.40 mg/dL) 2.51 H Laboratory Tests 01/04 0400 Hematology WBC (4.5 - 11.0 x10 3/uL) 18.0 H RBC (4.00 - 5.60 x10 6/uL) 3.73 L Hgb (12.5 - 16.9 g/dL) 12.0 L Hct (37.5 - 50.7 %) 35.3 L MCV (81.0 - 99.0 fL) 94.6 MCH (27.0 - 33.0 pg) 32.2 MCHC (33.0 - 37.0 g/dL) 34.0 RDW (11.5 - 14.5 %) 13.5 Plt Count (150 - 400 x10 3/uL) 166 MPV (7.0 - 9.0 fL) 10.2 H Neut % (Auto) (56.0 - 77.0 %) 79.7 H Lymph % (Auto) (14.0 - 32.0 %) 7.9 L [place] % (Auto) (4.8 - 9.0 %) 11.6 H Eos % (Auto) (0.3 - 3.7 %) 0.0 L Baso % (Auto) (0.0 - 2.0 %) 0.1 Neut # (Auto) (2.0 - 7.6 x10 3/uL) 14.29 H Lymph # (Auto) (1.0 - 3.8 x10 3/uL) 1.42 [place]inton # (Auto) (0.1 - 0.8 x10 3/uL) 2.09 H Eos # (Auto) (0.0 - 0.2 x10 3/uL) 0.00 Baso # (Auto) (0.0 - 0.2 x10 3/uL) 0.02 Abs Immat Gran (auto) (0.00 - 0.03 x10 3/uL) 0. 13 H Add Manual Diff NO Immature Gran % (0.0 - 2.0 %) 0.7 Nucleated RBC % (0 - 0 %) 0.0 Nucleated RBCs # (Man) (0.0 - 0.1 x10 3/uL) 0. 00 Laboratory Tests 01/04 01/03 01/03 0400 2000 1245 Chemistry Magnesium (1.80 - 2.40 mg/dL) 2.43 H 2.55 H 2.5 1 H Radiology data: Recent Impressions: RADIOLOGY - XR CHEST 1 V 01/04 0201 Report Impression - Status: SIGNED Entered: 01/04/2023 0206 IMPRESSION: Moderately diminished lung volumes with perihila r and medial basilar opacities favored to reflect atelectasis . Superimposed pneumonia or edema not excluded. Impression By: [email or web address] - Abraham Wallace M.D. RADIOLOGY - XR CHEST 1 V 01/04 0500 Report Impression - Status: SIGNED Entered: 01/04/2023 0826 IMPRESSION: Grossly stable exam. Impression By: [email or web address] - Hilario Bentley M.D. Diagnosis, Assessment Plan Free Text DxA P Notes Free Text DxA P Notes: 52-year-old male wi th medical history of hypertension, lifelong smoker, alcohol use who presents to ED at [facility] with back pain and chest pain. He was ruled in for non-STEMI. Taken to [facility] where he was found to have multivessel CAD with tight left main. Patient is transferred here for CABG evaluation. He is not having active chest pain. His main complaint is back pain and headache. His blood pressure is markedly elevated at the time of visit, 208/111 mmHg. 1. NSTEMI/multivessel CAD with left main diseas e s/p 4V CABG and ALAA extubated last night, off pressor, awake and elizabet rt on DAP, BB, statin postop care per CTS 2. Hypertension BP soft post op monitor off BP meds 3. Tobacco and alcohol use Counseled cessation pulmo following 4. Chronic back pain. manage per primary team Electronically Signed by Milagros Weaver MD on at 0946 RPT #:[id number] END OF REPORT 2023-01-04 05:55:00-00:00 [id number] [place] [address] PATIENT NAME: SHEKHAR LOZADA ADMIT DATE: 12/14 05/07 ACCOUNT NO: [id number] ROOM NO: [facility] AGE: 52 REPORT TYPE: eELECTROCARDIOGRAM REPORT SEX: M ADMITTING PHYSICIAN:Eric Crabtree MD ATTENDING PHYSICIAN:Eric Crabtree MD Order: [id number] Test Reason : POD#2 S/P [id number] Test Date/Time Stamp: MonJan 04 2023 05:55:50 Blood Pressure : / mmHG Vent. Rate : 088 BPM Atrial Rate : 088 BPM P-R Int : 148 ms QRS Dur : 128 ms QT Int : 380 ms P-R-T Axes : 046 007 013 degree s QTc Int : 459 ms Normal sinus rhythm Right bundle branch block ST elevation, consider inferolateral injury or a cute infarct /pericarditis Abnormal ECG When compared with ECG of 03-JAN-2023 05:09, No changes Confirmed by MD STEFANY, MERT ([id number]) on 01/07/20 23 5:21:06 PM Referred By: Kodi Crabtree Confirmed by:MERT AYALA MD Electronically Signed by Mert Mccall MD on 0 01/06/23 at 1728 PATIENT NAME: SHEKHAR LOZADA [id number] 2023-01-03 15:52:00-00:00 [facility] Critical Care Progress Note REPORT#:[id number] REPORT STATUS: Signed DATE:01/03/23 TIME: 155 PATIENT: SHEKHAR LOZADA UNIT #: [id number] ROOM[facility]BED: [facility] : [facility] AGE: 52 SEX: M ATTEND: Sheila Crabtree MD ADM AUTHOR: Rome Esparza MD * ALL edits or amendments must be made on the [employer]/computer document * Subjective Chief complaint: Chest pain HPI: This is a 52-year-old male with medical history significant for hypertension, alcohol abuse and occasional smoking who initial ly presented to an outside hospital with complaints of back pain, and chest pains that started in the last 2 weeks. Patient underwent left heart catheterization by Dr. Felton at [facility] this showed multi vessel CAD with a 90% LAD, 60-70% left main, 70-80% circumflex. The patient underwent an echocardiogram done at [facility] on 12/28/2022 that showed a normal left ventric ular ejection fraction of 55-60%, moderate LVH, mild mitral regurgitation, grade 1 diastolic dysfunct ion. Patient was transferred to [facility] for khai luation for coronary bypass graft surgery. Earlier today the patient un derwent CABG x 4 (BURDICK-LAD, SVG-Ramus, SVG-OM, SVG- PDA) and ALAA. His intraoperative course was wit hout significant recurrence. He received 1200 of crystalloids and 300 cc of a utologous blood and 720 cc of Cell Saver. He was brought to CVICU intubated an d ventilated on epinephrine drip of 6 and norepinephrine drip of 8. The patient will be weaned to extubate per noreen col. We also will wean his pressors for MAP of over 65. The patient was weaned and extubated per protocol without problems. We also were weaning down on h is pressors. He received 500 cc of fluids to help with weaning down his press ors and a low CVP. Comments: Interval history- Patient was extubated in a timely fashion yester day. Is complaining of a lot of pain. Objective General VS/I O Last Documented: Result Date Time Pulse Ox 92 01/03 1421 B/P 130/61 01/03 142 B/P Mean 77 01/03 1421 Temp 37.7 01/03 1421 Pulse 80 01/03 1421 Resp 21 01/03 1421 O2 Delivery Nasal cannula 01/03 0832 O2 Flow Rate 4 01/03 0832 FiO2 40 01/03 2032 24 hour I O ending at 0700: 01/03 0700 01/02 1900 Intake Total 5516.00 146.00 Output Total 1490 Balance 4026.00 146.00 Intake, IV 2301.00 96.00 Intake, Oral 840 50 Intake, Other 2375 Number Voids 2 Output, Chest 280 Tube Drainage Output, Other 275 Output, Urine 935 Patient 111.1 kg Weight Weight Standing scale Measurement Method PATIENT WEIGHT: Weight (lb): 244 Weight (oz): 14.94 Weight (kg): 110.677 Medications: Active Meds + DC'd Last 24 Hrs Ipratropium Afton (ATROVENT) 500 MCG RTQ2H PRN PRN INH Cyanocobalamin (Vitamin B-12 500 mcg tab) 500 MC G DAILY PO Ferrous Sulfate (FERROUS SULFATE) 325 MG DAILY P O Bisacodyl (DULCOLAX) 10 MG ONCE PRN RECTAL Magnesium Hydroxide (MILK OF MAGNESIA) 30 ML ONC E PRN PO Atorvastatin Calcium (LIPITOR) 40 MG 2100 PO Insulin Human Lispro (HUMALOG) 0 AC HS SUBQ Tramadol HCl (ULTRAM) 50 MG ONCE ONE PO (DC) Clopidogrel Bisulfate (Plavix) 75 MG DAILY PO Polyethylene Glycol (MIRALAX) 17 GM DAILY PO Pantoprazole (PROTONIX) 40 MG DAILY@0600 PO Albumin Human (ALBUMINAR 5% 12.5GM/250ML) 250 ML ONCE ONE IV (DC) Fentanyl Citrate (SUBLIMAZE) 50 MCG Q2H PRN PRN IV Aspirin (ASPIRIN) 81 MG DAILY PO Amiodarone HCl (CORDARONE) 200 MG TID PO Docusate Sodium (COLACE) 100 MG BID PO Gabapentin (NEURONTIN) 200 MG BID PO Metoprolol Tartrate (LOPRESSOR) 12.5 MG Q12HR PO Sennosides (Senna Lax 8.6 MG TABLET) 17.2 MG BED TIME PO Albumin Human (ALBUMINAR 5% 12.5GM/250ML) 250 ML ONCE ONE IV (DC) Cefazolin Sodium (KEFZOL OR ANCEF) 6 GM ONCE ONE IV (DC) Sodium Chloride (SODIUM CHLORIDE 0.9%) 500 ML Rocuronium Afton (ZEMURON) 0 .STK-MED ONE IV ( DC) Lidocaine HCl (XYLOCAINE) 0 .STK-MED ONE .ROUTE (DC) Milrinone Lactate/Dextrose (MILRINONE 20MG/D5W 1 00ML) 100 ML .STK-MED ONE IV (DC) Rocuronium Afton (ZEMURON) 0 .STK-MED ONE IV ( DC) Acetaminophen (TYLENOL) 650 MG Q4H PRN PRN PO Acetaminophen (TYLENOL) 650 MG Q4H PRN PRN RECTA L Albumin Human (ALBUMINAR 25%) 25 GM ASDIR PRN IV (DC) Calcium Chloride (CALCIUM CHLORIDE) 1 GM ASDIR P RN IV Chlorhexidine Gluconate (PERIDEX) 15 ML Q2H MM ( DC) Dextrose/Water (DEXTROSE 10% IN WATER) 125 ML DIR PRN IV (CKD) Dextrose/Water (DEXTROSE 10% IN WATER) 250 ML DIR PRN IV (CKD) Epinephrine (ADRENALIN CHLORIDE) 4 MG ASDIR IV Dextrose/Water (DEXTROSE 5% WATER) 246 ML Glucagon (GLUCAGON) 1 MG ASDIR PRN IM Insulin Human Regular (HumuLIN R) 100 UNIT ASDIR IV (DC) Sodium Chloride (SODIUM CHLORIDE 0.9%) 99 ML Ipratropium Afton (ATROVENT) 500 MCG RTQ4H INH Magnesium Sulfate (MAGNESIUM SULFATE 4GM/SWFI 10 0ML) 100 ML ASDIR PRN IV Magnesium Sulfate (MAGNESIUM SULFATE 2GM/SWFI 50 ML) 50 ML ASDIR PRN IV Magnesium Sulfate/Dextrose (MAGNESIUM SULFATE 1G M/D5W 100ML) 100 ML ASDIR PRN IV Morphine Sulfate (morphine SULFATE) 4 MG Q2H PRN PRN IV Nitroglycerin/Dextrose (NITROGLYCERIN 50,000MCG/ D5W 250ML) 250 ML ASDIR IV Norepinephrine Bitartrate (NOREPINEPHRINE 8 MG/N S 250 ML) 250 ML TITRATE IV Ondansetron HCl (ZOFRAN) 4 MG Q6H PRN PRN IV Oxycodone HCl (ROXICODONE) 5 MG Q4H PRN PRN PO Oxycodone HCl (ROXICODONE) 10 MG Q4H PRN PRN PO Potassium Chloride (KCL 20MEQ/SWFI 100ML) 100 ML ASDIR PRN IV Sodium Bicarbonate (SODIUM BICARBONATE) 50 MEQ A SDIR PRN IV Sodium Chloride (SODIUM CHLORIDE 0.9%) 1,000 ML .Q20H IV Sodium Chloride (SODIUM CHLORIDE 0.9%) 250 ML Q2 4H IV Acetaminophen (TYLENOL EXTRA STRENGTH) 1,000 MG PREOP ONCALL PO (CKD) Gabapentin (NEURONTIN) 200 MG PREOP ONCALL PO (C KD) Lactated Ringer's (LACTATED RINGERS) 1,000 ML AZ EOP ONCALL IV Lidocaine HCl (LIDOCAINE HCL/PF) 2 ML PREOP ONCA LL LOCAL Lidocaine HCl (LIDOCAINE HCL/PF) 2 ML PREOP ONCA LL LOCAL Sodium Chloride (SODIUM CHLORIDE 0.9%) 500 ML AZ EOP ONCALL IV Sodium Chloride (SODIUM CHLORIDE) 5 ML ASDIR PRN IV Sodium Chloride (SODIUM CHLORIDE) 10 ML ASDIR AZ N IV Sodium Chloride (SODIUM CHLORIDE 0.9%) 250 ML A SDIR PRN IV Cefazolin Sodium (KEFZOL OR ANCEF) 2 GM PREOP ELECTRON TUBE ASSEMBLER IV (DC) Vancomycin HCl (VANCOMYCIN HCL) 1,750 MG PREOP O NCALL IV (DC) Sodium Chloride (SODIUM CHLORIDE 0.9%) 500 ML Verapamil HCl (ISOPTIN) 16.6 MG .Q24H ONE IV (DC ) Heparin Sodium (Porcine) (HEPARIN SODIUM) 1,660 UNIT Sodium Bicarbonate (SODIUM BICARBONATE) 0.7 ML Nitroglycerin/Dextrose (NITROGLYCERIN 50MG/D5W 250ML) 8.3 MG Lactated Ringer's (LACTATED RINGERS) 949.5 ML Sodium Chloride (SODIUM CHLORIDE) 20 ML ASDIR I V Mupirocin (BACTROBAN 2% 22 GM OINTMENT) 1 APPLIC BID NASAL Free Text Obj Notes Free Text Obj Notes: GEN: Patient is calm and in no distress NECK: Neck is supple, no JVD or thrush. No adeno jimbo. LUNGS: Coarse breath sounds, no wheezes, no rale s or crackles. HEART: S1/S2 regular, no murmurs are heard. No S 3 or rubs. ABDOMEN: Abdomen is soft, not tender. Bowel soun ds are present. EXT: No edema. No clubbing nor cyanosis noted. SKIN: Warm, with no rashes. NEURO: AAOx3, no focal deficits Treatment Prophylaxis Treatment Prophylaxis Drain(s)/tube(s): Drain(s)/tube(s): chest, urinary catheter Diagnosis, Assessment Plan Problem list/A P: 1. Hypertension 2. Coronary artery disease due to calcified cor onary lesion 3. Non-STEMI (non-ST elevated myocardial infarc tion) Free text A P: Acute pulmonary insufficiency following thoracic surgery Status post CABG x 4 (BURDICK-LAD, SVG-Ramus, SVG-O M, SVG-PDA) and ALAA Acute blood loss anemia Hypotension CAD Alcohol abuse Continue mechanical ventilation, vent settings r eviewed Titrate FiO2 to keep saturation more than 90%. Spontaneous breathing trial as soon as possible Wean to extubate Good spontaneous breathing trial Good weaning parameters The patient was extubated to nasal cannula and d oing well Follow ABGs and CXRs Keep off sedation Judicious pain control Norepinephrine drip Epinephrine drip Wean pressors to keep MAP more than 65 Give 1 bottle of albumin 5%, 250 cc Give 250 cc normal saline bolus Aspirin and Plavix Atorvastatin Metoprolol Follow lactate level Monitor chest tube output Monitor urine output and kidney function Monitor and replete electrolytes Perioperative antibiotics Bowel regimen Cardiac diet BG control with insulin gtt per protocol PT/OT VTE prophylaxis. Stress ulcer prophylaxis. Discussed with CV surgery and ICU team Critical care time 90 minutes 01/03 Neuro: Tylenol and oxycodone alternating, multim odal pain control Respiratory: On 2 L nasal cannula. ABG and CXR r eviewed. Continue ipratropium nebs. Pulmonary following for COPD. Cardiovascular: Patient has been weaned of the pressors based. Received 750 of fluid bolus overnight. Continue beta-alejandra and amiodarone. Renal: strict I/Os,K slightly elevated, creatinine worsened from 1 to 1.5, but with good urine output Given insulin and dextrose. Repeat K after 8 sonny rs. GI: tolerating diet, BR, abdomen is soft ID: trend WBC, cont periop ABx per protocol Hem: monitor Hgb and CTs output Endo: BG control with insulin sliding scale Misc: PTOT consult, DVT and GI ppx with DAPT and PPI Total critical care time 45 minutes spent treati ng the patient excluding any procedures performed Quality: Gen Med Crit Care Advanced Care Plan 65 or Older Discussed with: patient at 1706 RPT #:[id number] END OF REPORT 2023-01-03 11:59:00-00:00 [facility] ([facility]) Pulmonology Progress Note REPORT#:[id number] REPORT STATUS: Signed DATE:01/03/23 TIME: 1159 PATIENT: SHEKHAR LOZADA UNIT #: [id number] ROOM/BED: [place] [address] : 68 AGE: 52 SEX: M ATTEND: Sheila Crabtree MD ADM AUTHOR: Rod Hancock WAITER/WAITRESS SECOND CLASS * ALL edits or amendments must be made on the [employer]/computer document * Rod Hancock 01/03/23 1159: Subjective Chief complaint: S/p CABG x 4 (BURDICK-LAD, SVG-Ramus, SVG-OM, SVG-P DA), ALAA, EVH (RGSV) and Posterior pericartiotomy. He has a chest tube x2. He is c/o back pain and chest discomfort. Dull and constant. On nasal cannula. Siddiqui in placed. Review of Systems ROS Constitutional: fatigue, generalized weakness. Allergy/Immun: Denies: anaphylaxis, itching, rhinorrhea. Respiratory: Reports: KISER (dyspnea on exertion), SOB. Denies: hemoptysis, pleurisy, pleuritic pain, pneumonia, productive cough (spu jim). Cardiovascular: Reports: chest pain. Denies: KISER (dyspnea on exe rtion), orthopnea, palpitations. GI: Denies: constipation, GERD, hematochezia, melena . : Denies: flank pain, testicular swelling. Musculoskeletal: Denies: extremity pain, joint swelling, neck freeman n, thoracic pain. Heme: Denies: bleeding, bruising. Neuro: Denies: change in LOC, dizziness, focal weakness , gait problem, headache, spinning sensation, syncope. Objective General VS/I O: Last Documented: Result Date Time Pulse Ox 93 01/03 1100 B/P 96/58 01/03 1100 B/P Mean 72 01/03 1100 Temp 38.0 01/03 1100 Pulse 77 01/03 1100 Resp 19 01/03 1100 O2 Delivery High flow nasal cannula 01/03 0800 O2 Flow Rate 5 01/03 0800 FiO2 40 01/03 2032 24 hour I O ending at 0700: 01/03 0700 01/02 1900 Intake Total 5516.00 146.00 Output Total 1490 Balance 4026.00 146.00 Intake, IV 2301.00 96.00 Intake, Oral 840 50 Intake, Other 2375 Number Voids 2 Output, Chest 280 Tube Drainage Output, Other 275 Output, Urine 935 Patient 111.1 kg Weight Weight Standing scale Measurement Method PATIENT WEIGHT: Weight (lb): 244 Weight (oz): 14.94 Weight (kg): 111.100 Medications: Active Meds + DC'd Last 24 Hrs Ipratropium Afton (ATROVENT) 500 MCG RTQ2H PRN PRN INH Cyanocobalamin (Vitamin B-12 500 mcg tab) 500 MC G DAILY PO Ferrous Sulfate (FERROUS SULFATE) 325 MG DAILY P O Bisacodyl (DULCOLAX) 10 MG ONCE PRN RECTAL Magnesium Hydroxide (MILK OF MAGNESIA) 30 ML ONC E PRN PO Atorvastatin Calcium (LIPITOR) 40 MG 2100 PO Insulin Human Lispro (HUMALOG) 0 AC HS SUBQ Tramadol HCl (ULTRAM) 50 MG ONCE ONE PO (DC) Clopidogrel Bisulfate (Plavix) 75 MG DAILY PO Polyethylene Glycol (MIRALAX) 17 GM DAILY PO Pantoprazole (PROTONIX) 40 MG DAILY@0600 PO Albumin Human (ALBUMINAR 5% 12.5GM/250ML) 250 ML ONCE ONE IV (DC) Fentanyl Citrate (SUBLIMAZE) 50 MCG Q2H PRN PRN IV Aspirin (ASPIRIN) 81 MG DAILY PO Amiodarone HCl (CORDARONE) 200 MG TID PO Docusate Sodium (COLACE) 100 MG BID PO Gabapentin (NEURONTIN) 200 MG BID PO Metoprolol Tartrate (LOPRESSOR) 12.5 MG Q12HR PO Sennosides (Senna Lax 8.6 MG TABLET) 17.2 MG BED TIME PO Albumin Human (ALBUMINAR 5% 12.5GM/250ML) 250 ML ONCE ONE IV (DC) Cefazolin Sodium (KEFZOL OR ANCEF) 6 GM ONCE ONE IV (CKD) Sodium Chloride (SODIUM CHLORIDE 0.9%) 500 ML Rocuronium [place] (ZEMURON) 0 .STK-MED ONE IV ( DC) Lidocaine HCl (XYLOCAINE) 0 .STK-MED ONE .ROUTE (DC) Milrinone Lactate/Dextrose (MILRINONE 20MG/D5W 1 00ML) 100 ML .STK-MED ONE IV (DC) Rocuronium [place] (ZEMURON) 0 .STK-MED ONE IV ( DC) Acetaminophen (TYLENOL) 650 MG Q4H PRN PRN PO (r ) Acetaminophen (TYLENOL) 650 MG Q4H PRN PRN RECTA L Albumin Human (ALBUMINAR 25%) 25 GM ASDIR PRN IV Calcium Chloride (CALCIUM CHLORIDE) 1 GM ASDIR P RN IV Chlorhexidine Gluconate (PERIDEX) 15 ML Q2H MM ( DC) Dextrose/Water (DEXTROSE 10% IN WATER) 125 ML DIR PRN IV (CKD) Dextrose/Water (DEXTROSE 10% IN WATER) 250 ML DIR PRN IV (CKD) Epinephrine (ADRENALIN CHLORIDE) 4 MG ASDIR IV Dextrose/Water (DEXTROSE 5% WATER) 246 ML Glucagon (GLUCAGON) 1 MG ASDIR PRN IM Insulin Human Regular (HumuLIN R) 100 UNIT ASDIR IV (DC) Sodium Chloride (SODIUM CHLORIDE 0.9%) 99 ML Ipratropium [place] (ATROVENT) 500 MCG RTQ4H INH Magnesium Sulfate (MAGNESIUM SULFATE 4GM/SWFI 10 0ML) 100 ML ASDIR PRN IV Magnesium Sulfate (MAGNESIUM SULFATE 2GM/SWFI 50 ML) 50 ML ASDIR PRN IV Magnesium Sulfate/Dextrose (MAGNESIUM SULFATE 1G M/D5W 100ML) 100 ML ASDIR PRN IV Morphine Sulfate (morphine SULFATE) 4 MG Q2H PRN PRN IV Nitroglycerin/Dextrose (NITROGLYCERIN 50,000MCG/ D5W 250ML) 250 ML ASDIR IV Norepinephrine Bitartrate (NOREPINEPHRINE 8 MG/N S 250 ML) 250 ML TITRATE IV Ondansetron HCl (ZOFRAN) 4 MG Q6H PRN PRN IV Oxycodone HCl (ROXICODONE) 5 MG Q4H PRN PRN PO Oxycodone HCl (ROXICODONE) 10 MG Q4H PRN PRN PO Potassium Chloride (KCL 20MEQ/SWFI 100ML) 100 ML ASDIR PRN IV Sodium Bicarbonate (SODIUM BICARBONATE) 50 MEQ A SDIR PRN IV Sodium Chloride (SODIUM CHLORIDE 0.9%) 1,000 ML .Q20H IV Sodium Chloride (SODIUM CHLORIDE 0.9%) 250 ML Q2 4H IV Succinylcholine Chloride (QUELICIN FLIPTOP) 0 .S TK-MED ONE IV (DC) Fentanyl Citrate (SUBLIMAZE) 0 .STK-MED ONE IV ( DC) Fentanyl Citrate (SUBLIMAZE) 0 .STK-MED ONE IV ( DC) Midazolam HCl (VERSED) 0 .STK-MED ONE .ROUTE (DC ) Propofol (DIPRIVAN 200MG/20ML INJECTION) 20 ML . STK-MED ONE IV (DC) Cefazolin Sodium (KEFZOL OR ANCEF) 0 .STK-MED ON E .ROUTE (DC) Heparin Sodium (HEPARIN SODIUM) 0 .STK-MED ONE . ROUTE (DC) Papaverine HCl (PAPAVERINE HCL) 0 .STK-MED ONE I V (DC) Heparin Sodium (HEPARIN SODIUM) 0 .STK-MED ONE . ROUTE (DC) Albumin Human (ALBUMINAR-25%) 100 ML .STK-MED ON E IV (DC) Mannitol (Mannitol 20%) 500 ML .STK-MED ONE IV ( DC) Sodium Chloride (SODIUM CHLORIDE 0.9%) 100 ML . STK-MED ONE IV (DC) Lidocaine HCl (XYLOCAINE IV) 0 .STK-MED ONE IV ( DC) Magnesium Sulfate (MAGNESIUM SULFATE) 0 .STK-MED ONE IV (DC) Phenylephrine HCl (ROBYN-SYNEPHRINE 10MG/ML AMP) 0 .STK-MED ONE .ROUTE (DC ) Sodium Bicarbonate (SODIUM BICARBONATE) 0 .STK-M ED ONE IV (DC) Acetaminophen (TYLENOL EXTRA STRENGTH) 1,000 MG PREOP ONCALL PO (CKD) Gabapentin (NEURONTIN) 200 MG PREOP ONCALL PO (C KD) Lactated Ringer's (LACTATED RINGERS) 1,000 ML [place] EOP ONCALL IV Lidocaine HCl (LIDOCAINE HCL/PF) 2 ML PREOP ONCA LL LOCAL Lidocaine HCl (LIDOCAINE HCL/PF) 2 ML PREOP ONCA LL LOCAL Sodium Chloride (SODIUM CHLORIDE 0.9%) 500 ML AZ EOP ONCALL IV Sodium Chloride (SODIUM CHLORIDE) 5 ML ASDIR PRN IV Sodium Chloride (SODIUM CHLORIDE) 10 ML ASDIR AZ N IV Sodium Chloride (SODIUM CHLORIDE 0.9%) 250 ML DIR PRN IV Cefazolin Sodium (KEFZOL OR ANCEF) 2 GM PREOP ELECTRON TUBE ASSEMBLER IV (DC) Vancomycin HCl (VANCOMYCIN HCL) 1,750 MG PREOP O NCALL IV (DC) Sodium Chloride (SODIUM CHLORIDE 0.9%) 500 ML Verapamil HCl (ISOPTIN) 16.6 MG .Q24H ONE IV (DC ) Heparin Sodium (Porcine) (HEPARIN SODIUM) 1,660 UNIT Sodium Bicarbonate (SODIUM BICARBONATE) 0.7 ML Nitroglycerin/Dextrose (NITROGLYCERIN 50MG/D5W 250ML) 8.3 MG Lactated Ringer's (LACTATED RINGERS) 949.5 ML Amlodipine Besylate (NORVASC) 5 MG BID PO (DC) Sodium Chloride (SODIUM CHLORIDE) 20 ML ASDIR IV Albuterol/Ipratropium (DUONEB) 3 ML RTQ4H PRN [place] N NEB (DC) Tramadol HCl (ULTRAM) 50 MG Q6H PRN PRN PO (DC) Carvedilol (COREG) 25 MG BID PO (DC) Aspirin (ASPIRIN) 81 MG DAILY PO (DC) Atorvastatin Calcium (LIPITOR) 40 MG 2100 PO (DC ) Mupirocin (BACTROBAN 2% 22 GM OINTMENT) 1 APPLIC BID NASAL Heparin Sodium (HEPARIN 5000 UNITS/ML) 0 ASDIR P RN IV (DC) Heparin Sodium (Porcine) (HEPARIN 25,000 UNITS/ 1/2NS 500ML) 500 ML ASDIR IV (DC) Hydralazine HCl (APRESOLINE) 10 MG Q6H PRN PRN I V (DC) Acetaminophen (TYLENOL) 650 MG Q4H PRN PRN PO (D C) Hydrocodone Bitart/Acetaminophen (NORCO 5/325) 1 TAB Q6H PRN PRN PO (DC) Dietitian nutrition assessment The data set between the solid lines has been im ported from the dietitian's assessment. BMI Calculated: 40.8 Nutrition related diagnosis: Nutrition diagnosis details: Nutrition problem: Nutrition etiology: Nutrition signs and symptoms: Nutrition prescription: Dietitian name: Assessment completed: Physical Exam General appearance: respiratory support, alert, awake Head/eyes: atraumatic, normocephalic, PERRLA Cardiovascular: normal heart sounds, normal S1/S 2, regular rate rhythm Respiratory/chest: aerating well, clear to auscultation, symmetric expansion, no distress Abdomen: soft, non-tender, no CVA tenderness Genitourinary: no bladder distention, no flank p ain Extremities: no clubbing, no cyanosis, no edema Musculoskeletal: no muscle spasm Neuro/ASBESTOS CLOTH INSPECTOR: alert, oriented X 3, CNII-XII intact Results Findings/Data: Laboratory Tests 01/03/23 0400: [Embedded Image Not Available] 01/02/231925: [Embedded Image Not Available] Laboratory Tests 01/03 Blood Gas Puncture Site Art Line Art Line Art Line Art L ine O2 Saturation (90 - 100 %) 94.3 96.3 93.8 92.9 ABG pH (7.35 - 7.45) 7.337 L 7.314 L 7.290 *L 7 .336 L ABG pCO2 (35.0 - 45 mmHg) 48.2 H 47.1 H 48.3 H 46.7 H ABG pO2 (80 - 100.0 mmHg) 80.7 93.3 78.8 L 71.2 L ABG PO2/FiO2 Ratio (mm/Hg) 224.16 233.25 197.0 0 142.40 ABG HCO3 (22.0 - 26.0 MMOL/L) 25.6 23.9 23.2 25 .0 ABG Total CO2 27.1 25.3 24.7 26.4 ABG Base Excess (-4.0 - 4.0 0.0 -2.2 -3.4 -0.9 MMOL/L) ABG Hematocrit (37.5 - 50.7 %) 40 39 42 39 ABG Hemoglobin (12.5 - 16.9 G/DL) 13.4 13.4 14. 4 13.2 Michael Test N/A N/A N/A Sodium (134 - 147 mmol/L) 138 139 140 138 Potassium (3.4 - 5.0 mmol/L) 5.1 H 4.6 4.5 4.6 Chloride (100 - 108 mmol/L) 103 106 105 104 Ionized Calcium (1.12 - 1.32 1.16 1.21 1.30 1.2 9 MMOL/L) Lactic Acid (0.9 - 1.7 mmol/l) 1.6 2.1 H Temperature (F) 100 99.1 98.6 98.4 O2 Delivery Device Cannula BiPAP Adult Vent Jassi lt Vent Vent Mode AC Vent Rate (/MIN) 17 FiO2 (%) 36 40 40 50 Tidal Volume (ml) 600 PEEP (cmH2O) 5 5 5 Pressure Support (cmH2O) 10 01/02 01/02 01/02 01/02 01/02 1855 1743 1715 1644 1616 Blood Gas O2 Saturation (90 - 100 %) 96.2 99.5 99.8 99.9 99.6 ABG pH (7.35 - 7.45) 7.358 7.389 7.386 7.342 L 7.394 ABG pCO2 (35.0 - 45 mmHg) 41.1 42.8 42.4 47.9 H 40.2 ABG pO2 (80 - 100.0 mmHg) 86.6 169.3 H 235.2 *H 371.5 *H 181.9 H ABG HCO3 (22.0 - 26.0 MMOL/L) 23.1 25.8 25.4 25 .9 24.5 ABG Total CO2 24.4 27.1 26.7 27.4 25.8 ABG Base Excess (-4.0 - 4.0 -2.3 0.6 0.3 -0.2 - 0.4 MMOL/L) ABG Hematocrit (37.5 - 50.7 %) 35 L 34 L 34 L 3 4 L 42 ABG Hemoglobin (12.5 - 16.9 12.1 L 11.7 L 11.4 L 11.4 L 14.3 G/DL) Sodium (134 - 147 mmol/L) 138 136 136 137 138 Potassium (3.4 - 5.0 mmol/L) 4.2 5.6 H 5.8 H 5. 5 H 5.1 H Chloride (100 - 108 mmol/L) 106 102 102 100 105 Ionized Calcium (1.12 - 1.32 1.28 1.03 L 1.01 L 0.99 L 1.00 L MMOL/L) Lactic Acid (0.9 - 1.7 mmol/l) 2.1 H 1.7 1.5 0. 7 L 0.8 L 01/02 1529 Blood Gas O2 Saturation (90 - 100 %) 100.0 ABG pH (7.35 - 7.45) 7.433 ABG pCO2 (35.0 - 45 mmHg) 36.6 ABG pO2 (80 - 100.0 mmHg) 532.6 *H ABG HCO3 (22.0 - 26.0 MMOL/L) 24.4 ABG Total CO2 25.6 ABG Base Excess (-4.0 - 4.0 MMOL/L) 0.5 ABG Hematocrit (37.5 - 50.7 %) 44 ABG Hemoglobin (12.5 - 16.9 G/DL) 15.1 Sodium (134 - 147 mmol/L) 139 Potassium (3.4 - 5.0 mmol/L) 4.7 Chloride (100 - 108 mmol/L) 104 Ionized Calcium (1.12 - 1.32 MMOL/L) 1.03 L Lactic Acid (0.9 - 1.7 mmol/l) 0.8 L Laboratory Tests 01/03 01/03 01/03 01/03 01/02 0725 0410 0400 4568 5357 Chemistry Sodium (134 - 147 mEq/L) 138 Potassium (3.4 - 5.0 mEq/L) 5.0 Chloride (100 - 108 mEq/L) 106 Carbon Dioxide (21 - 33 mEq/l) 26 Anion Gap (0 - 20) 11 BUN (7 - 18 mg/dL) 13 Creatinine (0.6 - 1.3 mg/dL) 1.0 POC Creatinine (0.8 - 1.3 mg/dL) 1.1 Glomerular Filtr Rate (90 - 95) 90.0 Glucose (70 - 110 mg/dL) 146 H POC Glucose (70 - 110 MG/DL) 136 H 141 H 150 H POC Glucose (mg/dL) (70 - 110 MG/DL) 141 H Calcium (8.0 - 10.5 mg/dL) 7.7 L Magnesium (1.80 - 2.40 mg/dL) 2.33 Total Bilirubin (0.0 - 1.0 mg/dL) 0.70 Direct Bilirubin (0.0 - 0.30 MG/DL) 0.30 Indirect Bilirubin (MG/DL) 0.40 AST (15 - 37 IUnit/L) 71 H ALT (30 - 65 IUnit/L) 66 H Total Alk Phosphatase (20 - 125 IUnit/L) 59 Total Protein (6.4 - 8.2 g/dL) 5.5 L Albumin (3.4 - 5.0 g/dL) 3.50 01/02 185 Chemistry Sodium (134 - 147 mEq/L) 138 Potassium (3.4 - 5.0 mEq/L) 4.8 Chloride (100 - 108 mEq/L) 108 Carbon Dioxide (21 - 33 mEq/l) 24 Anion Gap (0 - 20) 11 BUN (7 - 18 mg/dL) 12 Creatinine (0.6 - 1.3 mg/dL) 1.0 POC Creatinine (0.8 - 1.3 mg/dL) 1.0 0.8 1.1 1. 0 Glomerular Filtr Rate (90 - 95) 90.0 Glucose (70 - 110 mg/dL) 164 H POC Glucose (mg/dL) (70 - 110 MG/DL) 158 H 163 H 152 H 167 H Calcium (8.0 - 10.5 mg/dL) 8.4 Magnesium (1.80 - 2.40 mg/dL) 2.90 H 01/02 1715 1644 1616 1529 Chemistry POC Creatinine (0.8 - 1.3 mg/dL) 1.1 1.0 0.9 0. 9 0.8 POC Glucose (mg/dL) (70 - 110 MG/DL) 171 H 179 H 188 H 201 H 137 H Laboratory Tests 01/02 1744 1715 1645 Coagulation INR (0.8 - 1.2) 1.2 PTT (King) (25.0 - 39.5 Seconds) 28.0 PT Patient/Control Mix (9.3 - 12.9 13.1 H SECONDS) Activated Coag Time (74 - 137 SEC) 113 474 H 54 0 H 642 H 01/02 01/02 1618 1531 Coagulation Activated Coag Time (74 - 137 SEC) 600 H 137 Laboratory Tests 01/03 01/02 0400 1926 Hematology WBC (4.5 - 11.0 x10 3/uL) 15.2 H 25.8 H RBC (4.00 - 5.60 x10 6/uL) 4.07 4.13 Hgb (12.5 - 16.9 g/dL) 12.9 13.1 Hct (37.5 - 50.7 %) 38.7 38.6 MCV (81.0 - 99.0 fL) 95.1 93.5 MCH (27.0 - 33.0 pg) 31.7 31.7 MCHC (33.0 - 37.0 g/dL) 33.3 33.9 RDW (11.5 - 14.5 %) 13.2 13.2 Plt Count (150 - 400 x10 3/uL) 151 212 MPV (7.0 - 9.0 fL) 10.2 H 10.1 H Neut % (Auto) (56.0 - 77.0 %) 88.5 H 79.6 H Lymph % (Auto) (14.0 - 32.0 %) 5.6 L 10.2 L [place] % (Auto) (4.8 - 9.0 %) 5.1 6.3 Eos % (Auto) (0.3 - 3.7 %) 0.0 L 0.8 Baso % (Auto) (0.0 - 2.0 %) 0.1 0.3 Neut # (Auto) (2.0 - 7.6 x10 3/uL) 13.47 H 20. 54 H Lymph # (Auto) (1.0 - 3.8 x10 3/uL) 0.86 L 2.62 [place] # (Auto) (0.1 - 0.8 x10 3/uL) 0.78 1.62 H Eos # (Auto) (0.0 - 0.2 x10 3/uL) 0.00 0.21 H Baso # (Auto) (0.0 - 0.2 x10 3/uL) 0.02 0.09 Abs Immat Gran (auto) (0.00 - 0.03 x10 3/uL) 0. 11 H 0.73 H Add Manual Diff NO NO Immature Gran % (0.0 - 2.0 %) 0.7 2.8 H Nucleated RBC % (0 - 0 %) 0.0 0.0 Nucleated RBCs # (Man) (0.0 - 0.1 x10 3/uL) 0.0 0 0.00 Radiology data: Recent Impressions: ULTRASOUND - DUP UE ART UNI/LTD 01/02 1330 Report Impression - Status: SIGNED Entered: 01/02/2023 1604 IMPRESSION: 1. Insufficient ulnar collateral circulation to the left hand (thumb) after radial artery compression. 2. No soft tissue edema or fluid collection. Impression By: [email or web address] Ally akers M.D. RADIOLOGY - XR CHEST 1 V 01/02 192 Report Impression - Status: SIGNED Entered: 01/02/20232023 IMPRESSION: 1. Satisfactory position of lines and tubes. 2. Cardiomegaly with mild edema. Left basilar op acities, possibly atelectasis. Question small left pleural effusio n. Impression By: Olivia Bentley M.D. RADIOLOGY - XR CHEST 1 V 01/03 0725 Report Impression - Status: SIGNED Entered: 01/03/2023 0803 IMPRESSION: 1. Improved lung opacities. 2. Removal of the ET tube. Impression By: Olivia Bentley M.D. Results: labs reviewed, vital signs reviewed, vi brandon signs stable, x-ray personally reviewed, current med profile rev'd Treatment Prophylaxis Treatment Prophylaxis Oxygen: room air Drain(s)/tube(s): Drain(s)/tube(s): chest, urinary catheter Diagnosis, Assessment Plan Free Text A P: Assessment and Plan: - Dyspnea due to Multivessel CAD and Emphysema. - Emphysema/COPD. - Multivessel CAD. - CP due to CAD. - HX of HTN. - Smoker. Plan: CVICU. S/p CABG x 4 (BURDICK-LAD, SVG-Ramus, SVG-OM, SVG-P DA), ALAA, EVH (RGSV) and Posterior pericartiotomy. He has a chest tube x2. Monitor Chest tube Outpt . Siddiqui in placed. Will continue Monitor respiratory status, breath ing tx, o2 support. Pain meds. Antiemetics. Follow labs and replace as needed. SCDs for DVT ppx. Continue Home meds. Monitor. Code status: full code Plan discussed with: patient, admitting physicia n, consultants, nurse Quality: Gen Med Crit Care Advanced Care Plan 65 or Older Discussed with: patient Jessi Chavez 01/05/23 0035: Attestations Physician Attestation Agree w/findings plan: Patient seen and examined, I agree with the findings and plans as documented by Rod Hancock NP Electronically Signed by Rod Hancock WAITER/WAITRESS SECOND CLASS on at 1201 Electronically Signed by Jessi Chavez MD on 0 01/05/23 at 0046 RPT #:[id number] END OF REPORT 2023-01-03 10:23:00-00:00 [facility]g REPORT#:[id number] REPORT STATUS: Signed DATE:01/03/23 TIME: 1023 PATIENT: SHEKHAR LOZADA UNIT #: [id number] ROOM/BED: [place] [id number] : 68 AGE: 52 SEX: M ATTEND: Sheila Crabtree MD ADM AUTHOR: Caro Bingham P * ALL edits or amendments must be made on the [employer]/computer document * General Post-op: day 1 Status post: 01/02/23 CABG x 4 (BURDICK-LAD, SVG-Ramus, SVG-OM, SVG-PDA) ALAA EVH (RGSV) Posterior pericartiotomy Subjective Chief complaint: Multi-vessel CAD- s/p CABG Review of Systems Constitutional: Denies: fatigue, fever. Skin: Denies: rash, swelling. Allergy/Immun: Denies: anaphylaxis, hives, itching. Eyes: Denies: redness, discharge, swelling. ENT: Denies: ear drainage, ear ringing. Respiratory: Denies: SOB, wheezing. Cardiovascular: Denies: chest pain, KISER (dyspnea on exertion), e sushila. GI: Denies: constipation, diarrhea. : Denies: hematuria, nocturia. Musculoskeletal: Denies: joint pain, joint swelling. Heme: Denies: bleeding, bruising. Endocrine: Denies: polydipsia, polyuria. Neuro: Denies: confusion, dizziness. All systems rev neg: except as marked Objective General VS/I O Last Documented: Result Date Time B/P 93/49 01/03 701 B/P Mean 62 01/03 701 Pulse Ox 92 01/03 701 Temp 100.0 01/03 701 Pulse 80 01/03 701 Resp 16 01/03 701 FiO2 40 01/02 203 O2 Delivery Ventilator 01/03 2000 24 hour I O ending at 0700: 01/03 0700 01/02 1900 Intake Total 5516.00 146.00 Output Total 1490 Balance 4026.00 146.00 Intake, IV 2301.00 96.00 Intake, Oral 840 50 Intake, Other 2375 Number Voids 2 Output, Chest 280 Tube Drainage Output, Other 275 Output, Urine 935 Patient 245 lb Weight Weight Standing scale Measurement Method PATIENT WEIGHT: Weight (lb): 244 Weight (oz): 14.94 Weight (kg): 111.100 Dietitian Nutrition assessment The data set between the solid lines has been im ported from the dietitian's assessment. BMI Calculated: 40.8 Nutrition related diagnosis: Nutrition diagnosis details: Nutrition problem: Nutrition etiology: Nutrition signs and symptoms: Nutrition prescription: Dietitian name: Assessment completed: Physical Exam General appearance: alert, awake, oriented Wound/incision: Location: sternal Site condition: dressing clean dry, dressing in tact HEENT: anicteric, mucosal membranes moist Neck: full range of motion, non-tender Cardiovascular: BP/pulses equal bilat., regular rate rhythm Respiratory: aerating well, clear to auscultatio n Abdomen: soft, non-tender Extremities: dry, moves all Musculoskeletal: full range of motion, painless range of motion Neuro/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 CLOTH INSPECTOR: alert, oriented X 3 Skin: dry, intact Psychiatry: normal affect, normal mood Current Medications Medications: Active Meds + DC'd Last 24 Hrs Ipratropium [place] (ATROVENT) 500 MCG RTQ2H [place] N PRN INH Cyanocobalamin (Vitamin B-12 500 mcg tab) 500 MC G DAILY PO Ferrous Sulfate (FERROUS SULFATE) 325 MG DAILY P O Bisacodyl (DULCOLAX) 10 MG ONCE PRN RECTAL Magnesium Hydroxide (MILK OF MAGNESIA) 30 ML ONC E PRN PO Atorvastatin Calcium (LIPITOR) 40 MG 2100 PO Insulin Human Lispro (HUMALOG) 0 AC HS SUBQ (PE ND) Clopidogrel Bisulfate (Plavix) 75 MG DAILY PO Polyethylene Glycol (MIRALAX) 17 GM DAILY PO Pantoprazole (PROTONIX) 40 MG DAILY@0600 PO Albumin Human (ALBUMINAR 5% 12.5GM/250ML) 250 ML ONCE ONE IV (DC) Fentanyl Citrate (SUBLIMAZE) 50 MCG Q2H PRN PRN IV Aspirin (ASPIRIN) 81 MG DAILY PO Amiodarone HCl (CORDARONE) 200 MG TID PO Docusate Sodium (COLACE) 100 MG BID PO Gabapentin (NEURONTIN) 200 MG BID PO Metoprolol Tartrate (LOPRESSOR) 12.5 MG Q12HR PO Sennosides (Senna Lax 8.6 MG TABLET) 17.2 MG BED TIME PO Albumin Human (ALBUMINAR 5% 12.5GM/250ML) 250 ML ONCE ONE IV (DC) Cefazolin Sodium (KEFZOL OR ANCEF) 6 GM ONCE ONE IV (CKD) Sodium Chloride (SODIUM CHLORIDE 0.9%) 500 ML Rocuronium [place] (ZEMURON) 0 .STK-MED ONE IV ( DC) Lidocaine HCl (XYLOCAINE) 0 .STK-MED ONE .ROUTE (DC) Milrinone Lactate/Dextrose (MILRINONE 20MG/D5W 1 00ML) 100 ML .STK-MED ONE IV (DC) Rocuronium [place] (ZEMURON) 0 .STK-MED ONE IV ( DC) Acetaminophen (TYLENOL) 650 MG Q4H PRN PRN PO Acetaminophen (TYLENOL) 650 MG Q4H PRN PRN RECTA L Albumin Human (ALBUMINAR 25%) 25 GM ASDIR PRN IV Calcium Chloride (CALCIUM CHLORIDE) 1 GM ASDIR P RN IV Chlorhexidine Gluconate (PERIDEX) 15 ML Q2H MM ( DC) Dextrose/Water (DEXTROSE 10% IN WATER) 125 ML DIR PRN IV (CKD) Dextrose/Water (DEXTROSE 10% IN WATER) 250 ML DIR PRN IV (CKD) Epinephrine (ADRENALIN CHLORIDE) 4 MG ASDIR IV Dextrose/Water (DEXTROSE 5% WATER) 246 ML Glucagon (GLUCAGON) 1 MG ASDIR PRN IM Insulin Human Regular (HumuLIN R) 100 UNIT ASDIR IV (CKD) Sodium Chloride (SODIUM CHLORIDE 0.9%) 99 ML Ipratropium [place] (ATROVENT) 500 MCG RTQ4H INH Magnesium Sulfate (MAGNESIUM SULFATE 4GM/SWFI 10 0ML) 100 ML ASDIR PRN IV Magnesium Sulfate (MAGNESIUM SULFATE 2GM/SWFI 50 ML) 50 ML ASDIR PRN IV Magnesium Sulfate/Dextrose (MAGNESIUM SULFATE 1G M/D5W 100ML) 100 ML ASDIR PRN IV Morphine Sulfate (morphine SULFATE) 4 MG Q2H PRN PRN IV Nitroglycerin/Dextrose (NITROGLYCERIN 50,000MCG/ D5W 250ML) 250 ML ASDIR IV Norepinephrine Bitartrate (NOREPINEPHRINE 8 MG/N S 250 ML) 250 ML TITRATE IV Ondansetron HCl (ZOFRAN) 4 MG Q6H PRN PRN IV Oxycodone HCl (ROXICODONE) 5 MG Q4H PRN PRN PO Oxycodone HCl (ROXICODONE) 10 MG Q4H PRN PRN PO Potassium Chloride (KCL 20MEQ/SWFI 100ML) 100 ML ASDIR PRN IV Sodium Bicarbonate (SODIUM BICARBONATE) 50 MEQ A SDIR PRN IV Sodium Chloride (SODIUM CHLORIDE 0.9%) 1,000 ML .Q20H IV Sodium Chloride (SODIUM CHLORIDE 0.9%) 250 ML Q2 4H IV Succinylcholine Chloride (QUELICIN FLIPTOP) 0 .S TK-MED ONE IV (DC) Fentanyl Citrate (SUBLIMAZE) 0 .STK-MED ONE IV ( DC) Fentanyl Citrate (SUBLIMAZE) 0 .STK-MED ONE IV ( DC) Midazolam HCl (VERSED) 0 .STK-MED ONE .ROUTE (DC ) Propofol (DIPRIVAN 200MG/20ML INJECTION) 20 ML . STK-MED ONE IV (DC) Cefazolin Sodium (KEFZOL OR ANCEF) 0 .STK-MED ON E .ROUTE (DC) Heparin Sodium (HEPARIN SODIUM) 0 .STK-MED ONE . ROUTE (DC) Papaverine HCl (PAPAVERINE HCL) 0 .STK-MED ONE I V (DC) Heparin Sodium (HEPARIN SODIUM) 0 .STK-MED ONE . ROUTE (DC) Albumin Human (ALBUMINAR-25%) 100 ML .STK-MED ON E IV (DC) Mannitol (Mannitol 20%) 500 ML .STK-MED ONE IV ( DC) Sodium Chloride (SODIUM CHLORIDE 0.9%) 100 ML .S TK-MED ONE IV (DC) Lidocaine HCl (XYLOCAINE IV) 0 .STK-MED ONE IV ( DC) Magnesium Sulfate (MAGNESIUM SULFATE) 0 .STK-MED ONE IV (DC) Phenylephrine HCl (ROBYN-SYNEPHRINE 10MG/ML AMP) 0 .STK-MED ONE .ROUTE (DC ) Sodium Bicarbonate (SODIUM BICARBONATE) 0 .STK-M ED ONE IV (DC) Acetaminophen (TYLENOL EXTRA STRENGTH) 1,000 MG PREOP ONCALL PO (CKD) Gabapentin (NEURONTIN) 200 MG PREOP ONCALL PO (C KD) Lactated Ringer's (LACTATED RINGERS) 1,000 ML [place] EOP ONCALL IV Lidocaine HCl (LIDOCAINE HCL/PF) 2 ML PREOP ONCA LL LOCAL Lidocaine HCl (LIDOCAINE HCL/PF) 2 ML PREOP ONCA LL LOCAL Sodium Chloride (SODIUM CHLORIDE 0.9%) 500 ML [place] EOP ONCALL IV Sodium Chloride (SODIUM CHLORIDE) 5 ML ASDIR PRN IV Sodium Chloride (SODIUM CHLORIDE) 10 ML ASDIR [place] N IV Sodium Chloride (SODIUM CHLORIDE 0.9%) 250 ML DIR PRN IV Cefazolin Sodium (KEFZOL OR ANCEF) 2 GM PREOP ELECTRON TUBE ASSEMBLER IV (DC) Vancomycin HCl (VANCOMYCIN HCL) 1,750 MG PREOP O NCALL IV (DC) Sodium Chloride (SODIUM CHLORIDE 0.9%) 500 ML Verapamil HCl (ISOPTIN) 16.6 MG .Q24H ONE IV (DC ) Heparin Sodium (Porcine) (HEPARIN SODIUM) 1,660 UNIT Sodium Bicarbonate (SODIUM BICARBONATE) 0.7 ML Nitroglycerin/Dextrose (NITROGLYCERIN 50MG/D5W 250ML) 8.3 MG Lactated Ringer's (LACTATED RINGERS) 949.5 ML Amlodipine Besylate (NORVASC) 5 MG BID PO (DC) Sodium Chloride (SODIUM CHLORIDE) 20 ML ASDIR IV Magnesium Sulfate (MAGNESIUM SULFATE 2GM/SWFI 50 ML) 50 ML DAILY PRN PRN IV (DC) Albuterol/Ipratropium (DUONEB) 3 ML RTQ4H PRN [place] N NEB (DC) Tramadol HCl (ULTRAM) 50 MG Q6H PRN PRN PO (DC) Carvedilol (COREG) 25 MG BID PO (DC) Aspirin (ASPIRIN) 81 MG DAILY PO (DC) Atorvastatin Calcium (LIPITOR) 40 MG 2100 PO (DC ) Mupirocin (BACTROBAN 2% 22 GM OINTMENT) 1 APPLIC BID NASAL Heparin Sodium (HEPARIN 5000 UNITS/ML) 0 ASDIR P RN IV (DC) Heparin Sodium (Porcine) (HEPARIN 25,000 UNITS/ 1/2NS 500ML) 500 ML ASDIR IV (DC) Hydralazine HCl (APRESOLINE) 10 MG Q6H PRN PRN I V (DC) Acetaminophen (TYLENOL) 650 MG Q4H PRN PRN PO ( DC) Hydrocodone Bitart/Acetaminophen (NORCO 5/325) 1 TAB Q6H PRN PRN PO (DC) Results Findings/Data: Laboratory Tests 01/03 Blood Gas Puncture Site Art Line Art Line Art Line Art L ine O2 Saturation (90 - 100 %) 94.3 96.3 93.8 92.9 ABG pH (7.35 - 7.45) 7.337 L 7.314 L 7.290 *L 7 .336 L ABG pCO2 (35.0 - 45 mmHg) 48.2 H 47.1 H 48.3 H 46.7 H ABG pO2 (80 - 100.0 mmHg) 80.7 93.3 78.8 L 71.2 L ABG PO2/FiO2 Ratio (mm/Hg) 224.16 233.25 197.00 142.40 ABG HCO3 (22.0 - 26.0 MMOL/L) 25.6 23.9 23.2 25 .0 ABG Total CO2 27.1 25.3 24.7 26.4 ABG Base Excess (-4.0 - 4.0 0.0 -2.2 -3.4 -0.9 MMOL/L) ABG Hematocrit (37.5 - 50.7 %) 40 39 42 39 ABG Hemoglobin (12.5 - 16.9 G/DL) 13.4 13.4 14. 4 13.2 Michael Test N/A N/A N/A Sodium (134 - 147 mmol/L) 138 139 140 138 Potassium (3.4 - 5.0 mmol/L) 5.1 H 4.6 4.5 4.6 Chloride (100 - 108 mmol/L) 103 106 105 104 Ionized Calcium (1.12 - 1.32 1.16 1.21 1.30 1.2 9 MMOL/L) Lactic Acid (0.9 - 1.7 mmol/l) 1.6 2.1 H Temperature (F) 100 99.1 98.6 98.4 O2 Delivery Device Cannula BiPAP Adult Vent Jassi lt Vent Vent Mode AC Vent Rate (/MIN) 17 FiO2 (%) 36 40 40 50 Tidal Volume (ml) 600 PEEP (cmH2O) 5 5 5 Pressure Support (cmH2O) 10 01/02 01/02 01/02 01/02 01/02 1855 1743 1715 1644 1616 Blood Gas O2 Saturation (90 - 100 %) 96.2 99.5 99.8 99.9 99.6 ABG pH (7.35 - 7.45) 7.358 7.389 7.386 7.342 L 7.394 ABG pCO2 (35.0 - 45 mmHg) 41.1 42.8 42.4 47.9 H 40.2 ABG pO2 (80 - 100.0 mmHg) 86.6 169.3 H 235.2 *H 371.5 *H 181.9 H ABG HCO3 (22.0 - 26.0 MMOL/L) 23.1 25.8 25.4 25 .9 24.5 ABG Total CO2 24.4 27.1 26.7 27.4 25.8 ABG Base Excess (-4.0 - 4.0 -2.3 0.6 0.3 -0.2 -0.4 MMOL/L) ABG Hematocrit (37.5 - 50.7 %) 35 L 34 L 34 L 3 4 L 42 ABG Hemoglobin (12.5 - 16.9 12.1 L 11.7 L 11.4 L 11.4 L 14.3 G/DL) Sodium (134 - 147 mmol/L) 138 136 136 137 138 Potassium (3.4 - 5.0 mmol/L) 4.2 5.6 H 5.8 H 5. 5 H 5.1 H Chloride (100 - 108 mmol/L) 106 102 102 100 105 Ionized Calcium (1.12 - 1.32 1.28 1.03 L 1.01 L 0.99 L 1.00 L MMOL/L) Lactic Acid (0.9 - 1.7 mmol/l) 2.1 H 1.7 1.5 0. 7 L 0.8 L 01/02 1529 Blood Gas O2 Saturation (90 - 100 %) 100.0 ABG pH (7.35 - 7.45) 7.433 ABG pCO2 (35.0 - 45 mmHg) 36.6 ABG pO2 (80 - 100.0 mmHg) 532.6 *H ABG HCO3 (22.0 - 26.0 MMOL/L) 24.4 ABG Total CO2 25.6 ABG Base Excess (-4.0 - 4.0 MMOL/L) 0.5 ABG Hematocrit (37.5 - 50.7 %) 44 ABG Hemoglobin (12.5 - 16.9 G/DL) 15.1 Sodium (134 - 147 mmol/L) 139 Potassium (3.4 - 5.0 mmol/L) 4.7 Chloride (100 - 108 mmol/L) 104 Ionized Calcium (1.12 - 1.32 MMOL/L) 1.03 L Lactic Acid (0.9 - 1.7 mmol/l) 0.8 L Laboratory Tests 01/03 01/03 01/03 01/03 01/02 0725 0410 0400 0122 2237 Chemistry Sodium (134 - 147 mEq/L) 138 Potassium (3.4 - 5.0 mEq/L) 5.0 Chloride (100 - 108 mEq/L) 106 Carbon Dioxide (21 - 33 mEq/l) 26 Anion Gap (0 - 20) 11 BUN (7 - 18 mg/dL) 13 Creatinine (0.6 - 1.3 mg/dL) 1.0 POC Creatinine (0.8 - 1.3 mg/dL) 1.1 Glomerular Filtr Rate (90 - 95) 90.0 Glucose (70 - 110 mg/dL) 146 H POC Glucose (70 - 110 MG/DL) 136 H 141 H 150 H POC Glucose (mg/dL) (70 - 110 MG/DL) 141 H Calcium (8.0 - 10.5 mg/dL) 7.7 L Magnesium (1.80 - 2.40 mg/dL) 2.33 Total Bilirubin (0.0 - 1.0 mg/dL) 0.70 Direct Bilirubin (0.0 - 0.30 MG/DL) 0.30 Indirect Bilirubin (MG/DL) 0.40 AST (15 - 37 IUnit/L) 71 H ALT (30 - 65 IUnit/L) 66 H Total Alk Phosphatase (20 - 125 IUnit/L) 59 Total Protein (6.4 - 8.2 g/dL) 5.5 L Albumin (3.4 - 5.0 g/dL) 3.50 01/02 1926 1855 Chemistry Sodium (134 - 147 mEq/L) 138 Potassium (3.4 - 5.0 mEq/L) 4.8 Chloride (100 - 108 mEq/L) 108 Carbon Dioxide (21 - 33 mEq/l) 24 Anion Gap (0 - 20) 11 BUN (7 - 18 mg/dL) 12 Creatinine (0.6 - 1.3 mg/dL) 1.0 POC Creatinine (0.8 - 1.3 mg/dL) 1.0 0.8 1.1 1. 0 Glomerular Filtr Rate (90 - 95) 90.0 Glucose (70 - 110 mg/dL) 164 H POC Glucose (mg/dL) (70 - 110 MG/DL) 158 H 163 H 152 H 167 H Calcium (8.0 - 10.5 mg/dL) 8.4 Magnesium (1.80 - 2.40 mg/dL) 2.90 H 01/02 01/02 01/02 01/02 01/02 1743 1715 1644 1616 1529 Chemistry POC Creatinine (0.8 - 1.3 mg/dL) 1.1 1.0 0.9 0. 9 0.8 POC Glucose (mg/dL) (70 - 110 MG/DL) 171 H 179 H 188 H 201 H 137 H Laboratory Tests 01/02 01/02 01/02 01/02 01/02 1926 1856 1744 1715 1645 Coagulation INR (0.8 - 1.2) 1.2 PTT (King) (25.0 - 39.5 Seconds) 28.0 PT Patient/Control Mix (9.3 - 12.9 13.1 H SECONDS) Activated Coag Time (74 - 137 SEC) 113 474 H 54 0 H 642 H 01/02 01/02 1618 1531 Coagulation Activated Coag Time (74 - 137 SEC) 600 H 137 Laboratory Tests 01/03 01/02 0400 1926 Hematology WBC (4.5 - 11.0 x10 3/uL) 15.2 H 25.8 H RBC (4.00 - 5.60 x10 6/uL) 4.07 4.13 Hgb (12.5 - 16.9 g/dL) 12.9 13.1 Hct (37.5 - 50.7 %) 38.7 38.6 MCV (81.0 - 99.0 fL) 95.1 93.5 MCH (27.0 - 33.0 pg) 31.7 31.7 MCHC (33.0 - 37.0 g/dL) 33.3 33.9 RDW (11.5 - 14.5 %) 13.2 13.2 Plt Count (150 - 400 x10 3/uL) 151 212 MPV (7.0 - 9.0 fL) 10.2 H 10.1 H Neut % (Auto) (56.0 - 77.0 %) 88.5 H 79.6 H Lymph % (Auto) (14.0 - 32.0 %) 5.6 L 10.2 L [place] % (Auto) (4.8 - 9.0 %) 5.1 6.3 Eos % (Auto) (0.3 - 3.7 %) 0.0 L 0.8 Baso % (Auto) (0.0 - 2.0 %) 0.1 0.3 Neut # (Auto) (2.0 - 7.6 x10 3/uL) 13.47 H 20. 54 H Lymph # (Auto) (1.0 - 3.8 x10 3/uL) 0.86 L 2.62 [place] # (Auto) (0.1 - 0.8 x10 3/uL) 0.78 1.62 H Eos # (Auto) (0.0 - 0.2 x10 3/uL) 0.00 0.21 H Baso # (Auto) (0.0 - 0.2 x10 3/uL) 0.02 0.09 Abs Immat Gran (auto) (0.00 - 0.03 x10 3/uL) 0. 11 H 0.73 H Add Manual Diff NO NO Immature Gran % (0.0 - 2.0 %) 0.7 2.8 H Nucleated RBC % (0 - 0 %) 0.0 0.0 Nucleated RBCs # (Man) (0.0 - 0.1 x10 3/uL) 0.0 0 0.00 Radiology data: Recent Impressions: ULTRASOUND - DUP UE ART UNI/LTD 01/02 1330 Report Impression - Status: SIGNED Entered: 01/02/2023 1604 IMPRESSION: 1. Insufficient ulnar collateral circulation to the left hand (thumb) after radial artery compression. 2. No soft tissue edema or fluid collection. Impression By: [email or web address] Ally akers M.D. RADIOLOGY - XR CHEST 1 V 01/02 192 Report Impression - Status: SIGNED Entered: 01/02/20232023 IMPRESSION: 1. Satisfactory position of lines and tubes. 2. Cardiomegaly with mild edema. Left basilar op acities, possibly atelectasis. Question small left pleural effusio n. Impression By: Olivia Bentley M.D. RADIOLOGY - XR CHEST 1 V 01/03 0725 Report Impression - Status: SIGNED Entered: 01/03/2023 0803 IMPRESSION: 1. Improved lung opacities. 2. Removal of the ET tube. Impression By: Olivia Bentley M.D. Results: labs reviewed, vital signs stable, germania m personally rev'd, x-ray personally reviewed, current med profile rev'd Treatment Prophylaxis Treatment Prophylaxis Oxygen: nasal cannula CVC/PICC documentation: The data below has been imported from nursing do cumentation. Any exceptions have been noted below under Provider comments. CVC/PICC insertion date/time: CVC multi lumen tr iple Internal jugular Right Inserted 01/02/23 1548 Provider comments on imported nursing data: [] Drain(s)/tube(s): Drain(s)/tube(s): chest, urinary catheter Quality: Trauma Gen Surg Advanced Care Plan 65 or Older Discussed with: patient Diagnosis, Assessment Plan Hospital course to date: This is a 52-year-old gentle man with a past medical history of hypertension who initially presented to an outside hospital with complaints of back pain, and chest pains. He reports the back pain as mid upper back pain that occurred over the last couple of weeks. Usually pain is worse with gonzalez ging position The patient reports he start ed to develop chest pains located midsternal for the past 2 weeks. He denies any radiating symptoms. Describes the chest pains as a heaviness, squeez ing sensation. Denies any syncope, palpitations. Denies any nausea vomitin g or diaphoresis. Patient underwent left heart catheterization by Dr. Felton at [facility] this showed multi vessel CAD with a 90% LAD, 60-70% left main, 70-80% circumflex. An echocardiogram was also done at [facility] on 12/28/2022. This showed a normal left ventricular ejection fractio n of 55-60%, moderate LVH, mild mitral regurgitation, grade 1 diastolic dysfunction. The patient does admit to sm oking 1-2 times per week. Does admit to alcohol 1-2 times per week. Patient does have a strong famil y history of coronary artery disease in his father and his grandmother. Denies any surgical history, Review of the records from [facility] show the p atgeronimo was admitted with a troponin peak of 483. Hemoglobin A1c was noted t o be 5.5. Renal function appears normal. Patient was transferred to [facility] for khai luation for coronary bypass graft surgery. Hemoglobin A1c noted to be 5.5 at [facility]'s Assessment/plan 1.coronary artery disease Begin work-up for coronary artery bypass graft with appropriate studies. 2. Hypertension 3. Chest pains Patient has been seen and examined by Dr. Jose fatima. Work-up underway for coronary artery bypass graft surgery. Further recommendations to follow 12/31/22 Patient resting comfortable denies pain. AAOx3 Respiratory: 100% oxygen on room air. Cardiac: Remains sinus rhythm GI: Denies constipation diarrhea positive bowel movement. : Voiding well. 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 Likely consider coronary artery bypass surgery e preet next week. Patient was seen and examine d by Dr. Crabtree. Further recommendations to follow 01/01 Patient resting comfortable denies pain. AAOx3 Respiratory: 100% oxygen on room air. Cardiac: Remains sinus rhythm GI: Denies constipation or diarrhea, positive ramon wel movement. : Voiding well. 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 Pulmonary consulted for history of smoking and a bnormal CT suggestive of emphysema. PFT hopefully to be completed in the morning. STS 0.39% Patient was seen and examine d by Dr. Crabtree. Further recommendations to follow Coronary artery bypass graft surgery was discuss ed with the patient. The risk of the operation including , bleeding, infe ction, heart attack, stroke, pneumonia, renal failure, dialysis, prol onged ICU stay, car tracheostomy, need for long-term rehabilitation were all discussed with the patient. Patient's questions were answered and the patient agreed t o proceed with surgery. 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 Crabtree, discussed plan of care with multidisciplinary team. at [phone] at 1556 RPT #:[id number] END OF REPORT 2023-01-03 09:35:00-00:00 [facility] ([facility]) Cardiology Progress Note REPORT#:[id number] REPORT STATUS: Signed DATE:01/03/23 TIME: 934 PATIENT: SHEKHAR LOZADA UNIT #: [id number] ROOM/BED: [place] [address] : 69 AGE: 52 SEX: M ATTEND: Ab carlos Crabtree MD ADM AUTHOR: Juanis Blevins HARVESTING CONTRACTOR * ALL edits or amendments must be made on the [employer]/computer document * Subjective Comments: OOB to chair, awake and alert, off pressor. Objective General VS/I O: 24 hour I O ending at 0700: 01/03 0700 01/02 1900 Intake Total 5516.00 146.00 Output Total 1490 Balance 4026.00 146.00 Intake, IV 2301.00 96.00 Intake, Oral 840 50 Intake, Other 2375 Number Voids 2 Output, Chest 280 Tube Drainage Output, Other 275 Output, Urine 935 Patient 111.1 kg Weight Weight Standing scale Measurement Method Vital Signs: Date Time Temp Pulse Resp B/P B/P Pulse O2 O2 F low FiO2 Mean Ox Delivery Rate 01/03 0701 93/49 62 01/03 0701 37.8 80 16 105/58 77 92 01/03 0700 37.8 80 17 94/50 63 92 01/03 0645 93/49 62 01/03 0645 37.8 80 15 93/56 70 92 01/03 0635 37.8 81 16 90/48 61 92 03/21 0630 89/48 60 03/21 0630 37.9 81 16 94/55 69 92 03/21 0618 95/51 64 03/21 0618 37.9 81 24 87/56 66 93 03/21 0615 100/51 64 03/21 0615 37.9 81 16 92 03/21 0601 100/50 64 03/21 0601 38.0 82 14 98/55 69 92 03/21 0600 38.0 82 16 101/51 65 92 03/21 0545 95/51 63 03/21 0545 38.1 79 19 88/47 63 93 03/21 0530 98/55 68 03/21 0530 38.1 82 27 98/53 68 90 03/21 0500 113/57 72 03/21 0500 37.9 82 18 128/61 85 92 03/21 0456 37.9 82 20 112/57 72 91 03/21 0445 115/57 74 03/21 0445 37.9 82 19 128/61 88 93 03/21 0430 114/56 72 03/21 0430 37.9 82 17 125/58 82 93 03/21 0415 115/58 74 03/21 0415 37.9 82 19 118/60 82 93 03/21 0400 122/57 75 03/21 0400 37.9 81 17 122/65 87 92 03/21 0345 119/57 74 03/21 0345 37.9 80 15 118/63 85 92 03/21 0330 123/62 78 03/21 0330 37.9 79 17 120/62 86 94 03/21 0323 80 91 03/21 0315 119/58 75 03/21 0315 37.8 80 12 116/58 83 91 03/21 0300 110/60 73 03/21 0300 37.8 79 16 121/57 82 93 03/21 0245 122/60 76 03/21 0245 37.8 80 15 127/60 87 94 03/21 0230 121/59 76 03/21 0230 37.7 80 16 132/62 89 95 03/21 0215 123/60 77 03/21 0215 37.7 79 15 132/61 88 94 03/21 0200 120/59 75 03/21 0200 37.7 79 14 130/61 88 93 03/21 0152 37.7 79 18 117/60 76 93 03/21 0145 118/63 77 03/21 0145 37.7 79 14 120/60 83 94 03/21 0130 113/64 78 03/21 0130 37.8 80 14 123/55 80 94 03/21 0115 108/57 72 03/21 0115 37.7 78 17 118/58 83 94 03/21 0100 114/58 74 03/21 0100 37.7 78 19 114/64 84 95 03/21 0045 116/58 75 03/21 0045 37.7 79 18 125/72 94 95 03/21 0030 115/58 74 03/21 0030 37.7 79 17 121/67 88 96 03/21 0015 119/61 77 03/21 0015 37.7 79 18 128/73 95 97 03/21 0004 117/61 76 03/21 0004 37.7 78 17 122/80 97 97 03/21 0000 37.7 78 21 119/61 77 97 03/20 2345 37.7 78 16 117/62 77 98 03/20 2330 37.6 76 18 106/59 71 97 03/20 2323 37.6 76 15 114/60 75 98 03/20 2315 37.6 77 15 113/60 74 97 03/20 2300 37.5 76 15 117/62 77 97 03/20 2257 77 97 03/20 2245 37.6 77 15 125/65 82 97 03/20 2230 37.6 79 14 110/59 74 96 03/20 2224 37.6 77 18 114/62 77 97 03/20 2215 37.6 77 21 122/63 79 97 03/20 2200 37.5 77 17 118/63 78 97 03/20 2145 37.4 76 21 121/65 80 96 03/20 2130 37.4 74 21 115/60 75 96 03/20 2124 37.3 75 124/63 79 96 03/20 2115 37.3 74 23 106/56 72 94 03/20 2100 37.3 71 25 116/60 75 98 03/20 2045 37.2 69 18 103/56 67 97 03/20 2031 68 97 40 03/20 2029 37.1 71 23 117/54 73 96 03/20 2023 37.1 68 16 130/66 82 96 /20 2014 37.0 66 16 121/62 76 96 03/20 1999 36.9 40 01/03 2000 Ventilator 40 01/03 2000 133/66 84 01/03 2000 36.9 65 25 110/58 78 95 01/02 1945 36.9 62 125/62 80 94 01/02 1930 36.9 62 15 115/63 79 93 01/03 1928 118/61 78 01/03 1928 36.9 63 116/70 84 93 01/02 1925 93 Ventilator 50 01/02 1925 63 93 50 PATIENT WEIGHT: Weight (lb): 244 Weight (oz): 14.94 Weight (kg): 111.100 Medications: Active Meds + DC'd Last 24 Hrs Ipratropium [place] (ATROVENT) 500 MCG RTQ2H PRN PRN INH Cyanocobalamin (Vitamin B-12 500 mcg tab) 500 MC G DAILY PO Ferrous Sulfate (FERROUS SULFATE) 325 MG DAILY P O Bisacodyl (DULCOLAX) 10 MG ONCE PRN RECTAL Magnesium Hydroxide (MILK OF MAGNESIA) 30 ML ONC E PRN PO Atorvastatin Calcium (LIPITOR) 40 MG 2100 PO Clopidogrel Bisulfate (Plavix) 75 MG DAILY PO Polyethylene Glycol (MIRALAX) 17 GM DAILY PO Pantoprazole (PROTONIX) 40 MG DAILY@0600 PO Albumin Human (ALBUMINAR 5% 12.5GM/250ML) 250 ML ONCE ONE IV (DC) Fentanyl Citrate (SUBLIMAZE) 50 MCG Q2H PRN PRN IV Aspirin (ASPIRIN) 81 MG DAILY PO Amiodarone HCl (CORDARONE) 200 MG TID PO Docusate Sodium (COLACE) 100 MG BID PO Gabapentin (NEURONTIN) 200 MG BID PO Metoprolol Tartrate (LOPRESSOR) 12.5 MG Q12HR PO Sennosides (Senna Lax 8.6 MG TABLET) 17.2 MG BED TIME PO Albumin Human (ALBUMINAR 5% 12.5GM/250ML) 250 ML ONCE ONE IV (DC) Cefazolin Sodium (KEFZOL OR ANCEF) 6 GM ONCE ONE IV (CKD) Sodium Chloride (SODIUM CHLORIDE 0.9%) 500 ML Rocuronium [place] (ZEMURON) 0 .STK-MED ONE IV ( DC) Lidocaine HCl (XYLOCAINE) 0 .STK-MED ONE .ROUTE (DC) Milrinone Lactate/Dextrose (MILRINONE 20MG/D5W 1 00ML) 100 ML .STK-MED ONE IV (DC) Rocuronium [place] (ZEMURON) 0 .STK-MED ONE IV ( DC) Acetaminophen (TYLENOL) 650 MG Q4H PRN PRN PO Acetaminophen (TYLENOL) 650 MG Q4H PRN PRN RECTA L Albumin Human (ALBUMINAR 25%) 25 GM ASDIR PRN IV Calcium Chloride (CALCIUM CHLORIDE) 1 GM ASDIR P RN IV Chlorhexidine Gluconate (PERIDEX) 15 ML Q2H MM ( DC) Dextrose/Water (DEXTROSE 10% IN WATER) 125 ML DIR PRN IV (CKD) Dextrose/Water (DEXTROSE 10% IN WATER) 250 ML DIR PRN IV (CKD) Epinephrine (ADRENALIN CHLORIDE) 4 MG ASDIR IV Dextrose/Water (DEXTROSE 5% WATER) 246 ML Glucagon (GLUCAGON) 1 MG ASDIR PRN IM Insulin Human Regular (HumuLIN R) 100 UNIT ASDIR IV (CKD) Sodium Chloride (SODIUM CHLORIDE 0.9%) 99 ML Ipratropium [place] (ATROVENT) 500 MCG RTQ4H INH Magnesium Sulfate (MAGNESIUM SULFATE 4GM/SWFI 10 0ML) 100 ML ASDIR PRN IV Magnesium Sulfate (MAGNESIUM SULFATE 2GM/SWFI 50 ML) 50 ML ASDIR PRN IV Magnesium Sulfate/Dextrose (MAGNESIUM SULFATE 1G M/D5W 100ML) 100 ML ASDIR PRN IV Morphine Sulfate (morphine SULFATE) 4 MG Q2H PRN PRN IV Nitroglycerin/Dextrose (NITROGLYCERIN 50,000MCG/ D5W 250ML) 250 ML ASDIR IV Norepinephrine Bitartrate (NOREPINEPHRINE 8 MG/N S 250 ML) 250 ML TITRATE IV Ondansetron HCl (ZOFRAN) 4 MG Q6H PRN PRN IV Oxycodone HCl (ROXICODONE) 5 MG Q4H PRN PRN PO Oxycodone HCl (ROXICODONE) 10 MG Q4H PRN PRN PO Potassium Chloride (KCL 20MEQ/SWFI 100ML) 100 ML ASDIR PRN IV Sodium Bicarbonate (SODIUM BICARBONATE) 50 MEQ A SDIR PRN IV Sodium Chloride (SODIUM CHLORIDE 0.9%) 1,000 ML .Q20H IV Sodium Chloride (SODIUM CHLORIDE 0.9%) 250 ML Q2 4H IV Succinylcholine Chloride (QUELICIN FLIPTOP) 0 .S TK-MED ONE IV (DC) Fentanyl Citrate (SUBLIMAZE) 0 .STK-MED ONE IV ( DC) Fentanyl Citrate (SUBLIMAZE) 0 .STK-MED ONE IV ( DC) Midazolam HCl (VERSED) 0 .STK-MED ONE .ROUTE (DC ) Propofol (DIPRIVAN 200MG/20ML INJECTION) 20 ML . STK-MED ONE IV (DC) Cefazolin Sodium (KEFZOL OR ANCEF) 0 .STK-MED ON E .ROUTE (DC) Heparin Sodium (HEPARIN SODIUM) 0 .STK-MED ONE . ROUTE (DC) Papaverine HCl (PAPAVERINE HCL) 0 .STK-MED ONE I V (DC) Heparin Sodium (HEPARIN SODIUM) 0 .STK-MED ONE . ROUTE (DC) Albumin Human (ALBUMINAR-25%) 100 ML .STK-MED ON E IV (DC) Mannitol (Mannitol 20%) 500 ML .STK-MED ONE IV ( DC) Sodium Chloride (SODIUM CHLORIDE 0.9%) 100 ML .S TK-MED ONE IV (DC) Lidocaine HCl (XYLOCAINE IV) 0 .STK-MED ONE IV ( DC) Magnesium Sulfate (MAGNESIUM SULFATE) 0 .STK-MED ONE IV (DC) Phenylephrine HCl (ROBYN-SYNEPHRINE 10MG/ML AMP) 0 .STK-MED ONE .ROUTE (DC ) Sodium Bicarbonate (SODIUM BICARBONATE) 0 .STK-M ED ONE IV (DC) Parenteral Electrolytes (PLASMA-LYTE A pH 7.4) 1 ,000 ML .STK-MED ONE IV (DC) Epinephrine HCl (EPINEPHrine 4 mg/D5W 250 mL) 25 0 ML .STK-MED ONE IV (DC ) Heparin Sodium (HEPARIN SODIUM) 0 .STK-MED ONE . ROUTE (DC) Insulin Human Regular (HumuLIN R 100 UNITS/NS 10 0ML) 100 ML .STK-MED ONE IV (DC) Norepinephrine Bitartrate (NOREPINEPHRINE 8 MG/N S 250 ML) 250 ML .STK-MED ONE IV (DC) Aminocaproic Acid (AMICAR) 0 .STK-MED ONE IV (DC ) Calcium Chloride (CALCIUM CHLORIDE) 0 .STK-MED O NE IV (DC) Nitroglycerin/Dextrose (NITROGLYCERIN 50,000MCG/ D5W 250ML) 250 ML .STK-MED ONE IV (DC) Protamine Sulfate (PROTAMINE SULFATE) 0 .STK-MED ONE IV (DC) Ropivacaine (NAROPIN 0.5% 150 MG/30mL) 0 .STK-ME D ONE .ROUTE (DC) Magnesium Sulfate (MAGNESIUM SULFATE) 0 .STK-MED ONE .ROUTE (DC) Dexamethasone Sodium Phosphate (DECADRON) 0 .STK -MED ONE .ROUTE (DC) Esmolol HCl (BREVIBLOC) 0 .STK-MED ONE IV (DC) Lidocaine HCl (XYLOCAINE) 0 .STK-MED ONE .ROUTE (DC) Ondansetron HCl (ZOFRAN) 0 .STK-MED ONE .ROUTE ( DC) Rocuronium [place] (ZEMURON) 0 .STK-MED ONE IV ( DC) Sodium Chloride (SODIUM CHLORIDE 0.9%) 100 ML .S TK-MED ONE IV (DC) Acetaminophen (TYLENOL EXTRA STRENGTH) 1,000 MG PREOP ONCALL PO (CKD) Gabapentin (NEURONTIN) 200 MG PREOP ONCALL PO (C KD) Lactated Ringer's (LACTATED RINGERS) 1,000 ML [place] EOP ONCALL IV Lidocaine HCl (LIDOCAINE HCL/PF) 2 ML PREOP ONCA LL LOCAL Lidocaine HCl (LIDOCAINE HCL/PF) 2 ML PREOP ONCA LL LOCAL Sodium Chloride (SODIUM CHLORIDE 0.9%) 500 ML [place] EOP ONCALL IV Sodium Chloride (SODIUM CHLORIDE) 5 ML ASDIR PRN IV Sodium Chloride (SODIUM CHLORIDE) 10 ML ASDIR [place] N IV Sodium Chloride (SODIUM CHLORIDE 0.9%) 250 ML DIR PRN IV Cefazolin Sodium (KEFZOL OR ANCEF) 2 GM PREOP ELECTRON TUBE ASSEMBLER IV (DC) Vancomycin HCl (VANCOMYCIN HCL) 1,750 MG PREOP O NCALL IV (DC) Sodium Chloride (SODIUM CHLORIDE 0.9%) 500 ML Verapamil HCl (ISOPTIN) 16.6 MG .Q24H ONE IV (DC ) Heparin Sodium (Porcine) (HEPARIN SODIUM) 1,660 UNIT Sodium Bicarbonate (SODIUM BICARBONATE) 0.7 ML Nitroglycerin/Dextrose (NITROGLYCERIN 50MG/D5W 250ML) 8.3 MG Lactated Ringer's (LACTATED RINGERS) 949.5 ML Amlodipine Besylate (NORVASC) 5 MG BID PO (DC) Sodium Chloride (SODIUM CHLORIDE) 20 ML ASDIR IV Magnesium Sulfate (MAGNESIUM SULFATE 2GM/SWFI 50 ML) 50 ML DAILY PRN PRN IV (DC) Albuterol/Ipratropium (DUONEB) 3 ML RTQ4H PRN [place] N NEB (DC) Tramadol HCl (ULTRAM) 50 MG Q6H PRN PRN PO (DC) Carvedilol (COREG) 25 MG BID PO (DC) Aspirin (ASPIRIN) 81 MG DAILY PO (DC) Atorvastatin Calcium (LIPITOR) 40 MG 2100 PO (DC ) Mupirocin (BACTROBAN 2% 22 GM OINTMENT) 1 APPLIC BID NASAL Heparin Sodium (HEPARIN 5000 UNITS/ML) 0 ASDIR P RN IV (DC) Heparin Sodium (Porcine) (HEPARIN 25,000 UNITS/ 1/2NS 500ML) 500 ML ASDIR IV (DC) Hydralazine HCl (APRESOLINE) 10 MG Q6H PRN PRN I V (DC) Acetaminophen (TYLENOL) 650 MG Q4H PRN PRN PO (D C) Hydrocodone Bitart/Acetaminophen (NORCO 5/325) 1 TAB Q6H PRN PRN PO (DC) Status post: 4V CABG and ALAA Physical Exam General appearance: obese, alert, awake, oriente d, no acute distress Neck: full range of motion, non-tender, supple/n o meningismus, no bruit/NL carotids, no JVD Cardiovascular: CV assessment: pedal edema, regular rate and rh ythm Respiratory: decreased breath sounds, on oxygen, no distress Abdomen: non-tender, obese Genitourinary: urinary catheter, urine Lower extremity: LE assessment: edema Musculoskeletal: normal inspection 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9 MMOL/L) ABG Hematocrit (37.5 - 50.7 %) 40 39 42 39 ABG Hemoglobin (12.5 - 16.9 G/DL) 13.4 13.4 14. 4 13.2 Michael Test N/A N/A N/A Sodium (134 - 147 mmol/L) 138 139 140 138 Potassium (3.4 - 5.0 mmol/L) 5.1 H 4.6 4.5 4.6 Chloride (100 - 108 mmol/L) 103 106 105 104 Ionized Calcium (1.12 - 1.32 1.16 1.21 1.30 1.2 9 MMOL/L) Lactic Acid (0.9 - 1.7 mmol/l) 1.6 2.1 H Temperature (F) 100 99.1 98.6 98.4 O2 Delivery Device Cannula BiPAP Adult Vent Jassi lt Vent Vent Mode AC Vent Rate (/MIN) 17 FiO2 (%) 36 40 40 50 Tidal Volume (ml) 600 PEEP (cmH2O) 5 5 5 Pressure Support (cmH2O) 10 01/02 01/02 01/02 01/02 01/02 1855 1743 1715 1644 1616 Blood Gas O2 Saturation (90 - 100 %) 96.2 99.5 99.8 99.9 99.6 ABG pH (7.35 - 7.45) 7.358 7.389 7.386 7.342 L 7.394 ABG pCO2 (35.0 - 45 mmHg) 41.1 42.8 42.4 47.9 H 40.2 ABG pO2 (80 - 100.0 mmHg) 86.6 169.3 H 235.2 *H 371.5 *H 181.9 H ABG HCO3 (22.0 - 26.0 MMOL/L) 23.1 25.8 25.4 2 5.9 24.5 ABG Total CO2 24.4 27.1 26.7 27.4 25.8 ABG Base Excess (-4.0 - 4.0 -2.3 0.6 0.3 -0.2 -0.4 MMOL/L) ABG Hematocrit (37.5 - 50.7 %) 35 L 34 L 34 L 3 4 L 42 ABG Hemoglobin (12.5 - 16.9 12.1 L 11.7 L 11.4 L 11.4 L 14.3 G/DL) Sodium (134 - 147 mmol/L) 138 136 136 137 138 Potassium (3.4 - 5.0 mmol/L) 4.2 5.6 H 5.8 H 5. 5 H 5.1 H Chloride (100 - 108 mmol/L) 106 102 102 100 105 Ionized Calcium (1.12 - 1.32 1.28 1.03 L 1.01 L 0.99 L 1.00 L MMOL/L) Lactic Acid (0.9 - 1.7 mmol/l) 2.1 H 1.7 1.5 0. 7 L 0.8 L 01/02 1529 Blood Gas O2 Saturation (90 - 100 %) 100.0 ABG pH (7.35 - 7.45) 7.433 ABG pCO2 (35.0 - 45 mmHg) 36.6 ABG pO2 (80 - 100.0 mmHg) 532.6 *H ABG HCO3 (22.0 - 26.0 MMOL/L) 24.4 ABG Total CO2 25.6 ABG Base Excess (-4.0 - 4.0 MMOL/L) 0.5 ABG Hematocrit (37.5 - 50.7 %) 44 ABG Hemoglobin (12.5 - 16.9 G/DL) 15.1 Sodium (134 - 147 mmol/L) 139 Potassium (3.4 - 5.0 mmol/L) 4.7 Chloride (100 - 108 mmol/L) 104 Ionized Calcium (1.12 - 1.32 MMOL/L) 1.03 L Lactic Acid (0.9 - 1.7 mmol/l) 0.8 L Laboratory Tests 01/03 01/03 01/03 01/03 01/02 0725 0410 0400 0122 2237 Chemistry Sodium (134 - 147 mEq/L) 138 Potassium (3.4 - 5.0 mEq/L) 5.0 Chloride (100 - 108 mEq/L) 106 Carbon Dioxide (21 - 33 mEq/l) 26 Anion Gap (0 - 20) 11 BUN (7 - 18 mg/dL) 13 Creatinine (0.6 - 1.3 mg/dL) 1.0 POC Creatinine (0.8 - 1.3 mg/dL) 1.1 Glomerular Filtr Rate (90 - 95) 90.0 Glucose (70 - 110 mg/dL) 146 H POC Glucose (70 - 110 MG/DL) 136 H 141 H 150 H POC Glucose (mg/dL) (70 - 110 MG/DL) 141 H Calcium (8.0 - 10.5 mg/dL) 7.7 L Magnesium (1.80 - 2.40 mg/dL) 2.33 Total Bilirubin (0.0 - 1.0 mg/dL) 0.70 Direct Bilirubin (0.0 - 0.30 MG/DL) 0.30 Indirect Bilirubin (MG/DL) 0.40 AST (15 - 37 IUnit/L) 71 H ALT (30 - 65 IUnit/L) 66 H Total Alk Phosphatase (20 - 125 IUnit/L) 59 Total Protein (6.4 - 8.2 g/dL) 5.5 L Albumin (3.4 - 5.0 g/dL) 3.50 01/02 1855 Chemistry Sodium (134 - 147 mEq/L) 138 Potassium (3.4 - 5.0 mEq/L) 4.8 Chloride (100 - 108 mEq/L) 108 Carbon Dioxide (21 - 33 mEq/l) 24 Anion Gap (0 - 20) 11 BUN (7 - 18 mg/dL) 12 Creatinine (0.6 - 1.3 mg/dL) 1.0 POC Creatinine (0.8 - 1.3 mg/dL) 1.0 0.8 1.1 1. 0 Glomerular Filtr Rate (90 - 95) 90.0 Glucose (70 - 110 mg/dL) 164 H POC Glucose (mg/dL) (70 - 110 MG/DL) 158 H 163 H 152 H 167 H Calcium (8.0 - 10.5 mg/dL) 8.4 Magnesium (1.80 - 2.40 mg/dL) 2.90 H 01/02 01/02 01/02 01/02 01/02 1743 1715 1644 1616 1529 Chemistry POC Creatinine (0.8 - 1.3 mg/dL) 1.1 1.0 0.9 0. 9 0.8 POC Glucose (mg/dL) (70 - 110 MG/DL) 171 H 179 H 188 H 201 H 137 H Laboratory Tests 01/02 01/02 01/02 01/02 01/02 1926 1856 1744 1715 1645 Coagulation INR (0.8 - 1.2) 1.2 PTT (So) (25.0 - 39.5 Seconds) 28.0 PT Patient/Control Mix (9.3 - 12.9 13.1 H SECONDS) Activated Coag Time (74 - 137 SEC) 113 474 H 54 0 H 642 H 01/02 01/02 1618 1531 Coagulation Activated Coag Time (74 - 137 SEC) 600 H 137 Laboratory Tests 01/03 01/02 0400 1926 Hematology WBC (4.5 - 11.0 x10 3/uL) 15.2 H 25.8 H RBC (4.00 - 5.60 x10 6/uL) 4.07 4.13 Hgb (12.5 - 16.9 g/dL) 12.9 13.1 Hct (37.5 - 50.7 %) 38.7 38.6 MCV (81.0 - 99.0 fL) 95.1 93.5 MCH (27.0 - 33.0 pg) 31.7 31.7 MCHC (33.0 - 37.0 g/dL) 33.3 33.9 RDW (11.5 - 14.5 %) 13.2 13.2 Plt Count (150 - 400 x10 3/uL) 151 212 MPV (7.0 - 9.0 fL) 10.2 H 10.1 H Neut % (Auto) (56.0 - 77.0 %) 88.5 H 79.6 H Lymph % (Auto) (14.0 - 32.0 %) 5.6 L 10.2 L [place] % (Auto) (4.8 - 9.0 %) 5.1 6.3 Eos % (Auto) (0.3 - 3.7 %) 0.0 L 0.8 Baso % (Auto) (0.0 - 2.0 %) 0.1 0.3 Neut # (Auto) (2.0 - 7.6 x10 3/uL) 13.47 H 20.5 4 H Lymph # (Auto) (1.0 - 3.8 x10 3/uL) 0.86 L 2.62 [place] # (Auto) (0.1 - 0.8 x10 3/uL) 0.78 1.62 H Eos # (Auto) (0.0 - 0.2 x10 3/uL) 0.00 0.21 H Baso # (Auto) (0.0 - 0.2 x10 3/uL) 0.02 0.09 Abs Immat Gran (auto) (0.00 - 0.03 x10 3/uL) 0. 11 H 0.73 H Add Manual Diff NO NO Immature Gran % (0.0 - 2.0 %) 0.7 2.8 H Nucleated RBC % (0 - 0 %) 0.0 0.0 Nucleated RBCs # (Man) (0.0 - 0.1 x10 3/uL) 0.0 0 0.00 Laboratory Tests 01/03 01/02 0400 1926 Chemistry Magnesium (1.80 - 2.40 mg/dL) 2.33 2.90 H Radiology data: Recent Impressions: ULTRASOUND - DUP UE ART UNI/LTD 01/02 1330 Report Impression - Status: SIGNED Entered: 01/02/2023 1604 IMPRESSION: 1. Insufficient ulnar collateral circulation to the left hand (thumb) after radial artery compression. 2. No soft tissue edema or fluid collection. Impression By: [email or web address] - Kentrell akers M.D. RADIOLOGY - XR CHEST 1 V 01/02 192 Report Impression - Status: SIGNED Entered: 01/02/20232023 IMPRESSION: 1. Satisfactory position of lines and tubes. 2. Cardiomegaly with mild edema. Left basilar op acities, possibly atelectasis. Question small left pleural effusio n. Impression By: Olivia Bentley M.D. RADIOLOGY - XR CHEST 1 V 01/03 0707 Report Impression - Status: SIGNED Entered: 01/03/2023 0803 IMPRESSION: 1. Improved lung opacities. 2. Removal of the ET tube. Impression By: Olivia Rich Bentley, M.D. Results: labs reviewed, vital signs reviewed, yt personally rev'd Telemetry Interpretation: sinus rhythm Diagnosis, Assessment Plan Plan discussed with: patient, nurse Free Text DxA P Notes Free Text DxA P Notes: 52-year-old male wi th medical history of hypertension, lifelong smoker, alcohol use who presents to ED at [facility] with back pain and chest pain. He was ruled in for non-STEMI. Taken to [facility] where he was found to have multivessel CAD with tight left main. Patient is transferred here for CABG evaluation. He is not having active chest pain. His main complaint is back pain and headache. His blood pressure is markedly elevated at the time of visit, 208/111 mmHg. 1. NSTEMI/multivessel CAD with left main disease s/p 4V CABG and ALAA extubated last night, off pressor, awake and elizabet rt on DAP, BB, statin postop care per CTS 2. Hypertension BP soft post op monitor off BP meds 3. Tobacco and alcohol use Counseled cessation pulmo following 4. Chronic back pain. manage per primary team at 1210 Electronically Signed by Milagros Weaver MD on at 0946 RPT #:[id number] END OF REPORT 2023-01-03 05:09:00-00:00 [id number] [place] [address] PATIENT NAME: SHEKHAR LOZADA ADMIT DATE: 12/14 05/07 ACCOUNT NO: [id number] ROOM NO: [id number] AGE: 52 REPORT TYPE: eELECTROCARDIOGRAM REPORT SEX: M ADMITTING PHYSICIAN:Eric Crabtree MD ATTENDING PHYSICIAN:Eric Crabtree MD Order: [id number] Test Reason : POD#1 S/P [id number] Test Date/Time Stamp: MonJan 03 2023 05:09:49 Blood Pressure : / mmHG Vent. Rate : 083 BPM Atrial Rate : 083 BPM P-R Int : 166 ms QRS Dur : 140 ms QT Int : 396 ms P-R-T Axes : 055 -02 040 degree s QTc Int : 465 ms Normal sinus rhythm Right bundle branch block Abnormal ECG When compared with ECG of 02-JAN-2023 19:38, No changes Confirmed by MD MCCALL GERARD ([id number]) on 01/07/20 5:20:12 PM Referred By: Kodi Crabtree Confirmed by:MERT AYALA MD Electronically Signed by Mert Mccall MD on 0 01/06/23 at 1720 PATIENT NAME: SHEKHAR LOZADA [id number] 2023-01-02 19:49:00-00:00 [facility] ([facility]) Critical Care Consult Note REPORT#:[id number] REPORT STATUS: Signed DATE:01/02/23 TIME: 1948 PATIENT: SHEKHAR LOZADA UNIT #: [id number] ROOM/BED: [place] [id number] : 69 AGE: 52 SEX: M ATTEND: Sheila Crabtree MD ADM AUTHOR: Malik Thomas MD * ALL edits or amendments must be made on the [employer]/computer document * History of Present Illness HPI Chief complaint: Chest pain PCP: PCP: Eric Crabtree MD HPI: This is a 52-year-old male with medical history significant for hypertension, alcohol abuse and occasional smoking who initial ly presented to an outside hospital with complaints of back pain, and chest pains that started in the last 2 weeks. Patient underwent left heart catheterization by Dr. Felton at [facility] this showed multi vessel CAD with a 90% LAD, 60-70% left main, 70-80% circumflex. The patient underwent an echocardiogram done at [facility] on 12/28/2022 that showed a normal left ventric ular ejection fraction of 55-60%, moderate LVH, mild mitral regurgitation, grade 1 diastolic dysfunct ion. Patient was transferred to [facility] for khai luation for coronary bypass graft surgery. Earlier today the patient un derwent CABG x 4 (BURDICK-LAD, SVG-Ramus, SVG-OM, SVG- PDA) and ALAA. His intraoperative course was wit hout significant recurrence. He received 1200 of crystalloids and 300 cc of a utologous blood and 720 cc of Cell Saver. He was brought to CVICU intubated an d ventilated on epinephrine drip of 6 and norepinephrine drip of 8. The patient will be weaned to extubate per noreen col. We also will wean his pressors for MAP of over 65. The patient was weaned and extubated per protocol without problems. We also were weaning down on h is pressors. He received 500 cc of fluids to help with weaning down his press ors and a low CVP. History - Adult longitudinal Past medical history: Reports: Hypertension. Denies: Diabetes mellitus . 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 All data and labs were reviewed and discussed wi marilu RN. Objective Physical Exam VS/I O: Last Documented: Result Date Time Pulse Ox 97 01/03 2032 FiO2 40 01/03 2032 Pulse 68 01/03 2032 O2 Delivery Ventilator 01/02 1925 B/P 116/77 01/02 0532 B/P Mean 89.8 01/02 0532 Temp 36.5 01/02 0532 Resp 18 01/02 0532 24 hour I O ending at 0700: 01/02 0700 01/01 1900 Intake Total 538.00 1488.00 Output Total Balance 538.00 1488.00 Intake, IV 288.00 288.00 Intake, Oral 250 1200 Number 1 Bowel Movements Number Voids 4 4 Patient 107.7 kg Weight Weight Standing scale Measurement Method Patient Weight and BMI Weight (kg): 107.700 BMI: 39.5 Medications: Active Meds + DC'd Last 24 Hrs Ipratropium Afton (ATROVENT) 500 MCG RTQ2H PRN PRN INH Cyanocobalamin (Vitamin B-12 500 mcg tab) 500 MC G DAILY PO Ferrous Sulfate (FERROUS SULFATE) 325 MG DAILY P O Bisacodyl (DULCOLAX) 10 MG ONCE PRN RECTAL Magnesium Hydroxide (MILK OF MAGNESIA) 30 ML ONC E PRN PO Atorvastatin Calcium (LIPITOR) 40 MG 2100 PO Clopidogrel Bisulfate (Plavix) 75 MG DAILY PO Polyethylene Glycol (MIRALAX) 17 GM DAILY PO Pantoprazole (PROTONIX) 40 MG DAILY@0600 PO Aspirin (ASPIRIN) 81 MG DAILY PO Amiodarone HCl (CORDARONE) 200 MG TID PO Docusate Sodium (COLACE) 100 MG BID PO Gabapentin (NEURONTIN) 200 MG BID PO Metoprolol Tartrate (LOPRESSOR) 12.5 MG Q12HR PO Sennosides (Senna Lax 8.6 MG TABLET) 17.2 MG BED TIME PO Cefazolin Sodium (KEFZOL OR ANCEF) 6 GM ONCE ONE IV (CKD) Sodium Chloride (SODIUM CHLORIDE 0.9%) 500 ML Rocuronium Afton (ZEMURON) 0 .STK-MED ONE IV ( DC) Lidocaine HCl (XYLOCAINE) 0 .STK-MED ONE .ROUTE (DC) Milrinone Lactate/Dextrose (MILRINONE 20MG/D5W 1 00ML) 100 ML .STK-MED ONE IV (DC) Rocuronium Afton (ZEMURON) 0 .STK-MED ONE IV (DC) Acetaminophen (TYLENOL) 650 MG Q4H PRN PRN PO Acetaminophen (TYLENOL) 650 MG Q4H PRN PRN RECTA L Albumin Human (ALBUMINAR 25%) 25 GM ASDIR PRN IV Calcium Chloride (CALCIUM CHLORIDE) 1 GM ASDIR P RN IV Chlorhexidine Gluconate (PERIDEX) 15 ML Q2H MM ( CKD) Dextrose/Water (DEXTROSE 10% IN WATER) 125 ML DIR PRN IV (CKD) Dextrose/Water (DEXTROSE 10% IN WATER) 250 ML DIR PRN IV (CKD) Epinephrine (ADRENALIN CHLORIDE) 4 MG ASDIR IV Dextrose/Water (DEXTROSE 5% WATER) 246 ML Glucagon (GLUCAGON) 1 MG ASDIR PRN IM Insulin Human Regular (HumuLIN R) 100 UNIT ASDIR IV (CKD) Sodium Chloride (SODIUM CHLORIDE 0.9%) 99 ML Ipratropium Afton (ATROVENT) 500 MCG RTQ4H INH Magnesium Sulfate (MAGNESIUM SULFATE 4GM/SWFI 10 0ML) 100 ML ASDIR PRN IV Magnesium Sulfate (MAGNESIUM SULFATE 2GM/SWFI 50 ML) 50 ML ASDIR PRN IV Magnesium Sulfate/Dextrose (MAGNESIUM SULFATE 1G M/D5W 100ML) 100 ML ASDIR PRN IV Morphine Sulfate (morphine SULFATE) 4 MG Q2H AZ N PRN IV Nitroglycerin/Dextrose (NITROGLYCERIN 50,000MCG/ D5W 250ML) 250 ML ASDIR IV Norepinephrine Bitartrate (NOREPINEPHRINE 8 MG/N S 250 ML) 250 ML TITRATE IV Ondansetron HCl (ZOFRAN) 4 MG Q6H PRN PRN IV Oxycodone HCl (ROXICODONE) 5 MG Q4H PRN PRN PO Oxycodone HCl (ROXICODONE) 10 MG Q4H PRN PRN PO Potassium Chloride (KCL 20MEQ/SWFI 100ML) 100 ML ASDIR PRN IV Sodium Bicarbonate (SODIUM BICARBONATE) 50 MEQ A SDIR PRN IV Sodium Chloride (SODIUM CHLORIDE 0.9%) 1,000 ML .Q20H IV Sodium Chloride (SODIUM CHLORIDE 0.9%) 250 ML Q2 4H IV Succinylcholine Chloride (QUELICIN FLIPTOP) 0 .S TK-MED ONE IV (DC) Fentanyl Citrate (SUBLIMAZE) 0 .STK-MED ONE IV ( DC) Fentanyl Citrate (SUBLIMAZE) 0 .STK-MED ONE IV ( DC) Midazolam HCl (VERSED) 0 .STK-MED ONE .ROUTE (DC ) Propofol (DIPRIVAN 200MG/20ML INJECTION) 20 ML . STK-MED ONE IV (DC) Cefazolin Sodium (KEFZOL OR ANCEF) 0 .STK-MED ON E .ROUTE (DC) Heparin Sodium (HEPARIN SODIUM) 0 .STK-MED ONE . ROUTE (DC) Papaverine HCl (PAPAVERINE HCL) 0 .STK-MED ONE I V (DC) Heparin Sodium (HEPARIN SODIUM) 0 .STK-MED ONE . ROUTE (DC) Albumin Human (ALBUMINAR-25%) 100 ML .STK-MED ON E IV (DC) Mannitol (Mannitol 20%) 500 ML .STK-MED ONE IV ( DC) Sodium Chloride (SODIUM CHLORIDE 0.9%) 100 ML .S TK-MED ONE IV (DC) Lidocaine HCl (XYLOCAINE IV) 0 .STK-MED ONE IV ( DC) Magnesium Sulfate (MAGNESIUM SULFATE) 0 .STK-MED ONE IV (DC) Phenylephrine HCl (ROBYN-SYNEPHRINE 10MG/ML AMP) 0 .STK-MED ONE .ROUTE (DC ) Sodium Bicarbonate (SODIUM BICARBONATE) 0 .STK-M ED ONE IV (DC) Parenteral Electrolytes (PLASMA-LYTE A pH 7.4) 1 ,000 ML .STK-MED ONE IV (DC) Epinephrine HCl (EPINEPHrine 4 mg/D5W 250 mL) 25 0 ML .STK-MED ONE IV (DC ) Heparin Sodium (HEPARIN SODIUM) 0 .STK-MED ONE . ROUTE (DC) Insulin Human Regular (HumuLIN R 100 UNITS/NS 10 0ML) 100 ML .STK-MED ONE IV (DC) Norepinephrine Bitartrate (NOREPINEPHRINE 8 MG/N S 250 ML) 250 ML .STK-MED ONE IV (DC) Aminocaproic Acid (AMICAR) 0 .STK-MED ONE IV (D C) Calcium Chloride (CALCIUM CHLORIDE) 0 .STK-MED O NE IV (DC) Nitroglycerin/Dextrose (NITROGLYCERIN 50,000MCG/ D5W 250ML) 250 ML .STK-MED ONE IV (DC) Protamine Sulfate (PROTAMINE SULFATE) 0 .STK-MED ONE IV (DC) Ropivacaine (NAROPIN 0.5% 150 MG/30mL) 0 .STK-ME D ONE .ROUTE (DC) Magnesium Sulfate (MAGNESIUM SULFATE) 0 .STK-MED ONE .ROUTE (DC) Dexamethasone Sodium Phosphate (DECADRON) 0 .STK -MED ONE .ROUTE (DC) Esmolol HCl (BREVIBLOC) 0 .STK-MED ONE IV (DC) Lidocaine HCl (XYLOCAINE) 0 .STK-MED ONE .ROUTE (DC) Ondansetron HCl (ZOFRAN) 0 .STK-MED ONE .ROUTE ( DC) Rocuronium Afton (ZEMURON) 0 .STK-MED ONE IV ( DC) Sodium Chloride (SODIUM CHLORIDE 0.9%) 100 ML .S TK-MED ONE IV (DC) Acetaminophen (TYLENOL EXTRA STRENGTH) 1,000 MG PREOP ONCALL PO (CKD) Gabapentin (NEURONTIN) 200 MG PREOP ONCALL PO (C KD) Lactated Ringer's (LACTATED RINGERS) 1,000 ML AZ EOP ONCALL IV Lidocaine HCl (LIDOCAINE HCL/PF) 2 ML PREOP ONCA LL LOCAL Lidocaine HCl (LIDOCAINE HCL/PF) 2 ML PREOP ONCA LL LOCAL Sodium Chloride (SODIUM CHLORIDE 0.9%) 500 ML AZ EOP ONCALL IV Sodium Chloride (SODIUM CHLORIDE) 5 ML ASDIR PRN IV Sodium Chloride (SODIUM CHLORIDE) 10 ML ASDIR AZ N IV Sodium Chloride (SODIUM CHLORIDE 0.9%) 250 ML DIR PRN IV Cefazolin Sodium (KEFZOL OR ANCEF) 2 GM PREOP ELECTRON TUBE ASSEMBLER IV (CKD) Metoprolol Tartrate (LOPRESSOR) 6.25 MG ONCE ONE PO (DC) Vancomycin HCl (VANCOMYCIN HCL) 1,750 MG PREOP O NCALL IV (CKD) Sodium Chloride (SODIUM CHLORIDE 0.9%) 500 ML Verapamil HCl (ISOPTIN) 16.6 MG .Q24H ONE IV (CK D) Heparin Sodium (Porcine) (HEPARIN SODIUM) 1,660 UNIT Sodium Bicarbonate (SODIUM BICARBONATE) 0.7 ML Nitroglycerin/Dextrose (NITROGLYCERIN 50MG/D5W 250ML) 8.3 MG Lactated Ringer's (LACTATED RINGERS) 949.5 ML Amlodipine Besylate (NORVASC) 5 MG BID PO (DC) Sodium Chloride (SODIUM CHLORIDE) 20 ML ASDIR IV Magnesium Sulfate (MAGNESIUM SULFATE 2GM/SWFI 50 ML) 50 ML DAILY PRN PRN IV (DC) Albuterol/Ipratropium (DUONEB) 3 ML RTQ4H PRN AZ N NEB (DC) Tramadol HCl (ULTRAM) 50 MG Q6H PRN PRN PO (DC) Carvedilol (COREG) 25 MG BID PO (DC) Aspirin (ASPIRIN) 81 MG DAILY PO (DC) Atorvastatin Calcium (LIPITOR) 40 MG 2100 PO (DC ) Mupirocin (BACTROBAN 2% 22 GM OINTMENT) 1 APPLIC BID NASAL Heparin Sodium (HEPARIN 5000 UNITS/ML) 0 ASDIR P RN IV (DC) Heparin Sodium (Porcine) (HEPARIN 25,000 UNITS/ 1/2NS 500ML) 500 ML ASDIR IV (DC) Hydralazine HCl (APRESOLINE) 10 MG Q6H PRN PRN I V (DC) Acetaminophen (TYLENOL) 650 MG Q4H PRN PRN PO (D C) Hydrocodone Bitart/Acetaminophen (NORCO 5/325) 1 TAB Q6H PRN PRN PO (DC) Results Findings/Data: Laboratory Tests 01/02/231925: [Embedded Image Not Available] 01/02/23 0333: [Embedded Image Not Available] Laboratory Tests 01/02 1855 1743 1715 Blood Gas Puncture Site Art Line O2 Saturation (90 - 100 %) 92.9 96.2 99.5 99.8 ABG pH (7.35 - 7.45) 7.336 L 7.358 7.389 7.386 ABG pCO2 (35.0 - 45 mmHg) 46.7 H 41.1 42.8 42.4 ABG pO2 (80 - 100.0 mmHg) 71.2 L 86.6 169.3 H 2 35.2 *H ABG PO2/FiO2 Ratio (mm/Hg) 142.40 ABG HCO3 (22.0 - 26.0 MMOL/L) 25.0 23.1 25.8 25 .4 ABG Total CO2 26.4 24.4 27.1 26.7 ABG Base Excess (-4.0 - 4.0 MMOL/L) -0.9 -2.3 0 .6 0.3 ABG Hematocrit (37.5 - 50.7 %) 39 35 L 34 L 34 L ABG Hemoglobin (12.5 - 16.9 G/DL) 13.2 12.1 L 11.7 L 11.4 L Sodium (134 - 147 mmol/L) 138 138 136 136 Potassium (3.4 - 5.0 mmol/L) 4.6 4.2 5.6 H 5.8 H Chloride (100 - 108 mmol/L) 104 106 102 102 Ionized Calcium (1.12 - 1.32 MMOL/L) 1.29 1.28 1.03 L 1.01 L Lactic Acid (0.9 - 1.7 mmol/l) 2.1 H 2.1 H 1.7 1.5 Temperature (F) 98.4 O2 Delivery Device Adult Vent Vent Mode AC FiO2 (%) 50 Tidal Volume (ml) 600 PEEP (cmH2O) 5 01/02 01/02 01/02 1644 1616 1529 Blood Gas O2 Saturation (90 - 100 %) 99.9 99.6 100.0 ABG pH (7.35 - 7.45) 7.342 L 7.394 7.433 ABG pCO2 (35.0 - 45 mmHg) 47.9 H 40.2 36.6 ABG pO2 (80 - 100.0 mmHg) 371.5 *H 181.9 H 532 .6 *H ABG HCO3 (22.0 - 26.0 MMOL/L) 25.9 24.5 24.4 ABG Total CO2 27.4 25.8 25.6 ABG Base Excess (-4.0 - 4.0 MMOL/L) -0.2 -0.4 0 .5 ABG Hematocrit (37.5 - 50.7 %) 34 L 42 44 ABG Hemoglobin (12.5 - 16.9 G/DL) 11.4 L 14.3 1 5.1 Sodium (134 - 147 mmol/L) 137 138 139 Potassium (3.4 - 5.0 mmol/L) 5.5 H 5.1 H 4.7 Chloride (100 - 108 mmol/L) 100 105 104 Ionized Calcium (1.12 - 1.32 MMOL/L) 0.99 L 1.0 0 L 1.03 L Lactic Acid (0.9 - 1.7 mmol/l) 0.7 L 0.8 L 0.8 L Laboratory Tests 01/027 1855 1743 1715 1644 Chemistry POC Creatinine (0.8 - 1.3 mg/dL) 1.1 1.0 1.1 1. 0 0.9 POC Glucose (mg/dL) (70 - 110 MG/DL) 152 H 167 H 171 H 179 H 188 H 01/02 01/02 01/02 1616 1529 0333 Chemistry Sodium (134 - 147 mEq/L) 140 Potassium (3.4 - 5.0 mEq/L) 4.1 Chloride (100 - 108 mEq/L) 107 Carbon Dioxide (21 - 33 mEq/l) 27 Anion Gap (0 - 20) 10 BUN (7 - 18 mg/dL) 9 Creatinine (0.6 - 1.3 mg/dL) 0.8 POC Creatinine (0.8 - 1.3 mg/dL) 0.9 0.8 Glomerular Filtr Rate (90 - 95) 105.8 H Glucose (70 - 110 mg/dL) 146 H POC Glucose (mg/dL) (70 - 110 MG/DL) 201 H 137 H Calcium (8.0 - 10.5 mg/dL) 8.6 Magnesium (1.80 - 2.40 mg/dL) 2.16 Laboratory Tests 01/02 01/02 01/02 01/02 01/02 1856 1744 1715 1645 1618 Coagulation Activated Coag Time (74 - 137 SEC) 113 474 H 54 0 H 642 H 600 H 01/02 01/02 1531 0333 Coagulation PTT (King) (25.0 - 39.5 Seconds) 62.5 H Activated Coag Time (74 - 137 SEC) 137 Laboratory Tests 01/02 01/02 1926 0333 Hematology WBC (4.5 - 11.0 x10 3/uL) 25.8 H 6.9 RBC (4.00 - 5.60 x10 6/uL) 4.13 4.72 Hgb (12.5 - 16.9 g/dL) 13.1 15.0 Hct (37.5 - 50.7 %) 38.6 43.5 MCV (81.0 - 99.0 fL) 93.5 92.2 MCH (27.0 - 33.0 pg) 31.7 31.8 MCHC (33.0 - 37.0 g/dL) 33.9 34.5 RDW (11.5 - 14.5 %) 13.2 13.1 Plt Count (150 - 400 x10 3/uL) 212 166 MPV (7.0 - 9.0 fL) 10.1 H 9.8 H Neut % (Auto) (56.0 - 77.0 %) 57.9 Lymph % (Auto) (14.0 - 32.0 %) 27.2 [place]inton % (Auto) (4.8 - 9.0 %) 9.7 H Eos % (Auto) (0.3 - 3.7 %) 3.9 H Baso % (Auto) (0.0 - 2.0 %) 0.6 Neut # (Auto) (2.0 - 7.6 x10 3/uL) 4.02 Lymph # (Auto) (1.0 - 3.8 x10 3/uL) 1.89 Vinton # (Auto) (0.1 - 0.8 x10 3/uL) 0.67 Eos # (Auto) (0.0 - 0.2 x10 3/uL) 0.27 H Baso # (Auto) (0.0 - 0.2 x10 3/uL) 0.04 Abs Immat Gran (auto) (0.00 - 0.03 x10 3/uL) 0. 05 H Add Manual Diff NO Immature Gran % (0.0 - 2.0 %) 0.7 Nucleated RBC % (0 - 0 %) 0.0 Nucleated RBCs # (Man) (0.0 - 0.1 x10 3/uL) 0.0 0 Microbiology: 01/01 145 NASAL: MSSA Surveillance Screen - COM P 01/01 1450 NASAL: MRSA DNA Surveillance Screen - COMP Radiology data: Recent Impressions: ULTRASOUND - DUP UE ART UNI/LTD 01/02 1330 Report Impression - Status: SIGNED Entered: 01/02/2023 7770 IMPRESSION: 1. Insufficient ulnar collateral circulation to the left hand (thumb) after radial artery compression. 2. No soft tissue edema or fluid collection. Impression By: [email or web address] - Kentrell akers M.D. Free Text Obj Notes Free Text Obj Notes: GEN: Patient is calm and in no distress NECK: Neck is supple, no JVD or thrush. No adeno jimbo. LUNGS: Coarse breath sounds, no wheezes, no rale s or crackles. HEART: S1/S2 regular, no murmurs are heard. No S 3 or rubs. ABDOMEN: Abdomen is soft, not tender. Bowel soun ds are present. EXT: No edema. No clubbing nor cyanosis noted. SKIN: Warm, with no rashes. NEURO: Intubated, sedated but follow commands Diagnosis, Assessment Plan Diagnosis, Assessment Plan Problem list/A P: 1. Hypertension 2. Coronary artery disease due to calcified cor onary lesion 3. Non-STEMI (non-ST elevated myocardial infarc tion) Free text DxA P: Acute pulmonary insufficiency following thoracic surgery Status post CABG x 4 (BURDICK-LAD, SVG-Ramus, SVG-O M, SVG-PDA) and ALAA Acute blood loss anemia Hypotension CAD Alcohol abuse Continue mechanical ventilation, vent settings r eviewed Titrate FiO2 to keep saturation more than 90%. Spontaneous breathing trial as soon as possible Wean to extubate Good spontaneous breathing trial Good weaning parameters The patient was extubated to nasal cannula and d oing well Follow ABGs and CXRs Keep off sedation Judicious pain control Norepinephrine drip Epinephrine drip Wean pressors to keep MAP more than 65 Give 1 bottle of albumin 5%, 250 cc Give 250 cc normal saline bolus Aspirin and Plavix Atorvastatin Metoprolol Follow lactate level Monitor chest tube output Monitor urine output and kidney function Monitor and replete electrolytes Perioperative antibiotics Bowel regimen Cardiac diet BG control with insulin gtt per protocol PT/OT VTE prophylaxis. Stress ulcer prophylaxis. Discussed with CV surgery and ICU team Critical care time 90 minutes at 0634 RPT #:[id number] END OF REPORT 2023-01-02 19:38:00-00:00 [id number] [place] [address] PATIENT NAME: SHEKHAR LOZADA ADMIT DATE: 12/14 05/07 ACCOUNT NO: [id number] ROOM NO: [facility] [place] AGE: 52 REPORT TYPE: eELECTROCARDIOGRAM REPORT SEX: M ADMITTING PHYSICIAN:Eric Crabtree MD ATTENDING PHYSICIAN:Eric Crabtree MD Order: [id number] Test Reason : S/P CABG Test Date/Time Stamp: MonJan 02 2023 19:38:06 Blood Pressure : / mmHG Vent. Rate : 059 BPM Atrial Rate : 059 BPM P-R Int : 182 ms QRS Dur : 144 ms QT Int : 468 ms P-R-T Axes : 025 -35 080 degree s QTc Int : 463 ms Sinus bradycardia Left axis deviation Right bundle branch block Abnormal ECG No previous ECGs available Confirmed by JEANNIE LOPEZ MD ([id number]) on 01/02/2023 9:18:56 PM Referred By: Kodi Crabtree Confirmed by:JEANNIE CROUCH MD Electronically Signed by Jeannie Lpoez MD on 12/15 at 1981 PATIENT NAME: SHEKHAR LOZADA [id number] 2023-01-02 19:07:00-00:00 [id number] [place] [address] PATIENT NAME: SHEKHAR LOZADA ADMIT DATE: 12/14 05/07 ACCOUNT NO: [id number] ROOM NO: G.2205 AGE: 52 REPORT TYPE: OPERATIVE REPORT SEX: M ADMITTING PHYSICIAN:Eric Crabtree MD ATTENDING PHYSICIAN:Eric Crabtree MD OPERATION DATE: 01/02/2023 PREOPERATIVE DIAGNOSES: 1. Coronary artery disease. 2. Cardiomyopathy. POSTOPERATIVE DIAGNOSES: 1. Coronary artery disease. 2. Cardiomyopathy. PROCEDURES: 1. Coronary artery bypass graft surgery x4 (BURDICK to LAD, saphenous vein to ramus, saphenous vein to marginal, saphenous vei n to PDA). 2. Amputation of left atrial appendage. 3. Endoscopic vein harvesting (right greater sap henous vein). 4. Posterior pericardiotomy. SURGEON: Maine Crabtree M.D. TAX REPRESENTATIVE: Anna Preston. ANESTHESIOLOGIST: Dr. Pina. ANESTHESIA: General endotracheal anesthesia. ESTIMATED BLOOD LOSS: 100 mL INDICATIONS: The patient is a 52-year-old gentle man with significant coronary artery disease involving the left main and cardiomyopathy with ejection fraction of about 35%. After due preoperative counseling, he was brought to the operating room today for surgical revascularizat ion. FINDINGS: 1. Vein was harvested from the right leg using e ndoscopic vein harvest technique. Vein was of satisfactory quality mirza uring about 4 mm in size. 2. Normal sternum. 3. Good quality BURDICK measuring 2 mm in size with excellent flow. 4. Normal pericardium without any intrapericardi al adhesions, minimal intrapericardial fluid. 5. LAD 2 mm, slightly diseased artery. 6. Ramus 2 mm, good quality artery. PATIENT NAME: SHEKHAR LOZADA ACCOUNT #: [id number] 7. Marginal 2 mm, good quality artery. 8. PDA 2 mm, good quality artery. 9. Left atrial appendage was amputated half a centimeter from the base and this was closed, then repaired with two layers of run jeannette pledgeted 4-0 Prolene suture. 10. Posterior pericardiotomy was performed by ma brittany a cruciate incision and excising about 1 cm x 1 cm of the posterior dhara cardium, so as to prevent postoperative pericardial effusion. DESCRIPTION OF PROCEDURE: The patient was identi fied in the preoperative holding area and brought to the OR, placed supine on the operating table. After induction of general endotracheal anesthesia, Fo radha catheter, radial arterial line, and antibiotics were placed. The patient's anterior torso and both legs were prepped and draped in standard surgical fas hion. Vein was harvested from the right leg using endoscopic vein harv est technique. Following harvesting of vein, subcutaneous tissue was closed wit h 2-0 Vicryl and skin with 4-0 Vicryl. Simultaneously, median sternotomy was performed. Left internal mammary artery was harvested. The patient was heparinized. Dhara cardium was opened longitudinally. Pericardial well was created. Ca rdiopulmonary bypass was instituted using ascending aorta and 3-stage can nula in the right atrium. The patient was cooled to 32 degrees centigrade. Stationary Boiler Fireman ssclamp was applied and the heart was arrested with 1.5 liters antegrade col d blood cardioplegia. Cardioplegia was repeated at interval of 10 minutes all throughout duration of cross-clamp. We began by exploring the PDA. This was a good quality artery measuring 2 mm. An arteriotomy was performed wit h a Rescue blade and extended with Mendiola scissors. A segment of previously jennifer vested reverse saphenous vein was was anastomosed in end-t o-side manner using running 7-0 Prolene suture. The Vein graft to PDA was brought along the right si de of the heart and sized. Aortotomy was performed on the right aspect of t he aorta using 4 mm punch. Proximal anastomosis of the PDA graft was then p erformed using running 6-0 Prolene suture. Next, the le ft atrial appendage was amputated half a centimeter from the base. This was then repaired wi th two layers of running pledgeted 4-0 Prolene suture. Next, a cruc iate incision was made on the posterior pericardium and pericardium of a size 1-inch x 1-inch was ex cised. Next, the marginal was explored. This was a good quality artery measuri ng 2 mm in size. An arteriotomy was performed wi th Rescue blade and extended with Mendiola scissors. A segment of previously harvested reverse saphenou s vein was anastomosed in end-to-side manner using 7-0 Prolene suture. Vein graft to marginal was brought along the left side of the h eart and sized. Aortotomy was performed on the left aspect of the aorta using 4-mm punch. Proximal a nastomosis of the marginal graft was then performed using running 6-0 Prole ne suture. Rewarming was commenced at this stage. Next, the ramus was exp lored. This was good quality artery measuring 2 mm in siz e. An arteriotomy was performed with a Rescue blade and extended with Mendiola scissors. A segment of p reviously harvested reverse saphenous vein was anastomosed in end-to -side manner using running 7-0 Prolene suture. The vein graft to ramus was then brought to the left side of the heart and sized. Aortotomy was performed on the left a spect of the aorta using 4 mm punch. Proximal anastomosis of the ramus was the n performed using running 6-0 Prolene suture. Finally, LAD was explore d. This was a slightly diseased artery measuring 2 mm in size. An arteriotomy was perfo rmed with a Rescue blade and extended with Mendiola scissors. BURDICK was anastomos ed in an end-to-side manner using running 8-0 Prolene suture. BURDICK pedicle w as tacked to the epicardium using two interrupted 6-0 Pr olene suture. A slit was made in the pericardium on the left aspect, so as to accommodate the BURDICK. Careful de-aeration was PATIENT NAME: SHEKHAR LOZADA [id number] performed, and the crossclamp was releas ed. One ventricular wire was placed. A 28-Divehi chest tube was mayte prosper in the mediastinum and 28 angled chest tube was performed on the left pleural space. Once the pa tient was at temperature, de- airing maneuvers were repeated and the patient w as weaned off cardiopulmonary bypass with some inotropic support. Heparin was reversed with protamine. Decannulation was uneventful. After confirming h emostasis, the chest was closed in layers using stainless steel wires for the sternum, #1 Vicryl for the fascia, 2-0 Vicryl for the subcutaneous tiss ue and 4-0 Vicryl for the skin. The patient was transferred to intensive c are unit, intubated in stable condition. Dictated By: Eric Crabtree MD Date Dictated: 01/02/2023 19:07:50 Date Transcribed: 01/02/2023 23:56:13 /[facility] Receipt ID: [id number] Authenticated and Edited by Tremayne Crabtree MD On 01/04/23 2:46:52 PM at 0249 PATIENT NAME: SHEKHAR LOZADA [id number] 2023-01-02 18:59:00-00:00 [facility] Brief Op Note REPORT#:[id number] REPORT STATUS: Signed DATE:01/02/23 TIME: 185 PATIENT: SHEKHAR LOZADA UNIT #: [id number] ROOM/BED: [place] [id number] : 69 AGE: 52 SEX: M ATTEND: Sheila Crabtree MD ADM AUTHOR: Eric Crabtree MD * ALL edits or amendments must be made on the [employer]/computer document * Op/Inv Proc Note - Brief Pre-procedure diagnosis: CAD Cardiomyopathy Post-procedure diagnosis: same as pre procedure dx Procedures performed: CABG x 4 (BURDICK-LAD, SVG-Ramus, SVG-OM, SVG-PDA) ALAA EVH (RGSV) Posterior pericartiotomy Primary Surgeon: [employer] Manager(s): Anna Preston Findings: LAD-2mm slightly diseased artery Complications: none Estimated blood loss in ml's: none Specimens removed/altered: KAYLEY at 1901 RPT #:[id number] END OF REPORT 2023-01-02 10:11:00-00:00 [facility] ([facility]) Cardiology Progress Note REPORT#:[id number] REPORT STATUS: Signed DATE:01/02/23 TIME: 1011 PATIENT: SHEKHAR LOZADA UNIT #: [id number] ROOM/BED: [facility] : 69 AGE: 52 SEX: M ATTEND: Sheila Crabtree MD ADM AUTHOR: Juanis Blevins CNP * ALL edits or amendments must be made on the [employer]/computer document * Subjective Patient reports: No: complaints. Objective General VS/I O: 24 hour I O ending at 0700: 01/02 0700 01/01 1900 Intake Total 538.00 1488.00 Output Total Balance 538.00 1488.00 Intake, IV 288.00 288.00 Intake, Oral 250 1200 Number 1 Bowel Movements Number Voids 4 4 Patient 107.7 kg Weight Weight Standing scale Measurement Method Vital Signs: Date Time Temp Pulse Resp B/P B/P Pulse O2 O2 F low FiO2 Mean Ox Delivery Rate 01/02 0532 36.5 62 18 116/77 89.8 94 01/02 0111 36.9 70 18 138/66 90.2 97 01/02 0107 36.8 68 18 134/84 100.5 96 01/01 2028 36.9 67 18 163/87 112.3 96 01/01 1900 64 17 96 01/01 1756 72 17 01/01 1700 61 17 97 01/01 1635 36.6 75 14 126/85 0.0 98 Room air 01/01 1600 64 44 95 01/01 1500 62 32 96 01/01 1400 68 38 95 01/01 1300 61 34 95 01/01 1200 69 26 97 01/01 1104 96 Room air 01/01 1100 63 14 96 01/01 1019 36.6 67 14 167/98 0.0 96 Room air PATIENT WEIGHT: Weight (lb): 237 Weight (oz): 7.01 Weight (kg): 107.700 Medications: Active Meds + DC'd Last 24 Hrs Epinephrine HCl (EPINEPHrine 4 mg/D5W 250 mL) 25 0 ML .STK-MED ONE IV (DC ) Heparin Sodium (HEPARIN SODIUM) 0 .STK-MED ONE . ROUTE (DC) Insulin Human Regular (HumuLIN R 100 UNITS/NS 10 0ML) 100 ML .STK-MED ONE IV (DC) Norepinephrine Bitartrate (NOREPINEPHRINE 8 MG/N S 250 ML) 250 ML .STK-MED ONE IV (DC) Aminocaproic Acid (AMICAR) 0 .STK-MED ONE IV (DC ) Calcium Chloride (CALCIUM CHLORIDE) 0 .STK-MED O NE IV (DC) Nitroglycerin/Dextrose (NITROGLYCERIN 50,000MCG/ D5W 250ML) 250 ML .STK-MED ONE IV (DC) Protamine Sulfate (PROTAMINE SULFATE) 0 .STK-MED ONE IV (DC) Ropivacaine (NAROPIN 0.5% 150 MG/30mL) 0 .STK-ME D ONE .ROUTE (DC) Magnesium Sulfate (MAGNESIUM SULFATE) 0 .STK-MED ONE .ROUTE (DC) Dexamethasone Sodium Phosphate (DECADRON) 0 .STK -MED ONE .ROUTE (DC) Esmolol HCl (BREVIBLOC) 0 .STK-MED ONE IV (DC) Lidocaine HCl (XYLOCAINE) 0 .STK-MED ONE .ROUTE (DC) Ondansetron HCl (ZOFRAN) 0 .STK-MED ONE .ROUTE ( DC) Rocuronium Afton (ZEMURON) 0 .STK-MED ONE IV ( DC) Sodium Chloride (SODIUM CHLORIDE 0.9%) 100 ML .S TK-MED ONE IV (DC) Acetaminophen (TYLENOL EXTRA STRENGTH) 1,000 MG PREOP ONCALL PO (CKD) Gabapentin (NEURONTIN) 200 MG PREOP ONCALL PO (C KD) Lactated Ringer's (LACTATED RINGERS) 1,000 ML AZ EOP ONCALL IV Lidocaine HCl (LIDOCAINE HCL/PF) 2 ML PREOP ONCA LL LOCAL Lidocaine HCl (LIDOCAINE HCL/PF) 2 ML PREOP ONCA LL LOCAL Sodium Chloride (SODIUM CHLORIDE 0.9%) 500 ML AZ EOP ONCALL IV Sodium Chloride (SODIUM CHLORIDE) 5 ML ASDIR PRN IV Sodium Chloride (SODIUM CHLORIDE) 10 ML ASDIR AZ N IV Sodium Chloride (SODIUM CHLORIDE 0.9%) 250 ML DIR PRN IV Cefazolin Sodium (KEFZOL OR ANCEF) 2 GM PREOP ELECTRON TUBE ASSEMBLER IV (CKD) Metoprolol Tartrate (LOPRESSOR) 6.25 MG ONCE ONE PO (DC) Vancomycin HCl (VANCOMYCIN HCL) 1,618.5 MG PREOP ONCALL IV (CKD) Sodium Chloride (SODIUM CHLORIDE 0.9%) 250 ML Verapamil HCl (ISOPTIN) 16.6 MG .Q24H ONE IV (CK D) Heparin Sodium (Porcine) (HEPARIN SODIUM) 1,660 UNIT Sodium Bicarbonate (SODIUM BICARBONATE) 0.7 ML Nitroglycerin/Dextrose (NITROGLYCERIN 50MG/D5W 250ML) 8.3 MG Lactated Ringer's (LACTATED RINGERS) 949.5 ML Amlodipine Besylate (NORVASC) 5 MG BID PO Magnesium Sulfate/Dextrose (MAGNESIUM SULFATE 1G M/D5W 100ML) 100 ML ONCE ONE IV (DC) Sodium Chloride (SODIUM CHLORIDE) 20 ML ASDIR IV Magnesium Sulfate (MAGNESIUM SULFATE 2GM/SWFI 50 ML) 50 ML DAILY PRN PRN IV (CKD) Albuterol/Ipratropium (DUONEB) 3 ML RTQ4H PRN AZ N NEB Tramadol HCl (ULTRAM) 50 MG Q6H PRN PRN PO Carvedilol (COREG) 25 MG BID PO Aspirin (ASPIRIN) 81 MG DAILY PO Atorvastatin Calcium (LIPITOR) 40 MG 2100 PO Mupirocin (BACTROBAN 2% 22 GM OINTMENT) 1 APPLIC BID NASAL Heparin Sodium (HEPARIN 5000 UNITS/ML) 0 ASDIR P RN IV Heparin Sodium (Porcine) (HEPARIN 25,000 UNITS/ 1/2NS 500ML) 500 ML ASDIR IV (CKD) Hydralazine HCl (APRESOLINE) 10 MG Q6H PRN PRN I V Acetaminophen (TYLENOL) 650 MG Q4H PRN PRN PO Amlodipine Besylate (NORVASC) 5 MG DAILY PO (DC) Hydrocodone Bitart/Acetaminophen (NORCO 5/325) 1 TAB Q6H PRN PRN PO Physical Exam General appearance: alert, awake, oriented Neck: non-tender, no bruit/NL carotids Cardiovascular: CV assessment: regular rate and rhythm Respiratory: decreased breath sounds, no distres s Abdomen: non-tender, obese Genitourinary: no flank pain, no urinary cathete r Lower extremity: LE assessment: no calf tenderness, no edema Musculoskeletal: normal inspection Neuro/ASBESTOS CLOTH INSPECTOR: alert, oriented X 3, normal speech Skin: dry, intact, normal color Psychiatry: normal affect, normal mood Results Findings/Data: Laboratory Tests 01/02 01/01 01/01 0333 1317 1027 Chemistry Sodium (134 - 147 mEq/L) 140 137 139 Potassium (3.4 - 5.0 mEq/L) 4.1 4.1 4.1 Chloride (100 - 108 mEq/L) 107 103 105 Carbon Dioxide (21 - 33 mEq/l) 27 26 27 Anion Gap (0 - 20) 10 12 11 BUN (7 - 18 mg/dL) 9 10 10 Creatinine (0.6 - 1.3 mg/dL) 0.8 0.8 0.9 Glomerular Filtr Rate (90 - 95) 105.8 H 105.8 H 102.1 H Glucose (70 - 110 mg/dL) 146 H 243 H 213 H Calcium (8.0 - 10.5 mg/dL) 8.6 8.9 9.1 Magnesium (1.80 - 2.40 mg/dL) 2.16 1.95 Total Bilirubin (0.0 - 1.0 mg/dL) 0.50 AST (15 - 37 IUnit/L) 51 H ALT (30 - 65 IUnit/L) 66 H Total Alk Phosphatase (20 - 125 IUnit/L) 102 Total Protein (6.4 - 8.2 g/dL) 6.4 Albumin (3.4 - 5.0 g/dL) 3.80 Laboratory Tests 01/02 01/01 0333 1317 Coagulation INR (0.8 - 1.2) 1.1 PTT (King) (25.0 - 39.5 Seconds) 62.5 H 65.6 H PT Patient/Control Mix (9.3 - 12.9 SECONDS) 11. 7 Laboratory Tests 01/02 01/01 0333 1317 Hematology WBC (4.5 - 11.0 x10 3/uL) 6.9 6.5 RBC (4.00 - 5.60 x10 6/uL) 4.72 4.83 Hgb (12.5 - 16.9 g/dL) 15.0 15.3 Hct (37.5 - 50.7 %) 43.5 44.9 MCV (81.0 - 99.0 fL) 92.2 93.0 MCH (27.0 - 33.0 pg) 31.8 31.7 MCHC (33.0 - 37.0 g/dL) 34.5 34.1 RDW (11.5 - 14.5 %) 13.1 13.2 Plt Count (150 - 400 x10 3/uL) 166 170 MPV (7.0 - 9.0 fL) 9.8 H 10.3 H Neut % (Auto) (56.0 - 77.0 %) 57.9 64.7 Lymph % (Auto) (14.0 - 32.0 %) 27.2 21.3 V[place] % (Auto) (4.8 - 9.0 %) 9.7 H 9.2 H Eos % (Auto) (0.3 - 3.7 %) 3.9 H 3.7 Baso % (Auto) (0.0 - 2.0 %) 0.6 0.6 Neut # (Auto) (2.0 - 7.6 x10 3/uL) 4.02 4.22 Lymph # (Auto) (1.0 - 3.8 x10 3/uL) 1.89 1.39 [place] # (Auto) (0.1 - 0.8 x10 3/uL) 0.67 0.60 Eos # (Auto) (0.0 - 0.2 x10 3/uL) 0.27 H 0.24 H Baso # (Auto) (0.0 - 0.2 x10 3/uL) 0.04 0.04 Abs Immat Gran (auto) (0.00 - 0.03 x10 3/uL) 0. 05 H 0.03 Add Manual Diff NO NO Immature Gran % (0.0 - 2.0 %) 0.7 0.5 Nucleated RBC % (0 - 0 %) 0.0 0.0 Nucleated RBCs # (Man) (0.0 - 0.1 x10 3/uL) 0.0 0 0.00 Laboratory Tests 01/01 1450 Serology SARS-CoV-2 Ag (Rapid) (Negative) Negative Microbiology Date/Time Procedure - Status Source Growth 01/01 145 MSSA Surveillance Screen - COMP NASAL 01/01 145 MRSA DNA Surveillance Screen - COMP NASAL Laboratory Tests 01/02 01/01 0333 1027 Chemistry Magnesium (1.80 - 2.40 mg/dL) 2.16 1.95 Results: labs reviewed, vital signs reviewed, [facility] personally rev'd Telemetry Interpretation: sinus rhythm Diagnosis, Assessment Plan Plan discussed with: patient, family Free Text DxA P Notes Free Text DxA P Notes: 52-year-old male wi th medical history of hypertension, lifelong smoker, alcohol use who presents to ED at [facility] with back pain and chest pain. He was ruled in for non-STEMI. Taken to [facility] where he was found to have multivessel CAD with tight left main. Patient is transferred here for CABG evaluation. He is not having active chest pain. His main complaint is back pain and headache. His blood pressure is markedly elevated at the time of visit, 208/111 mmHg. 1. NSTEMI/multivessel CAD with left main disease continue aspirin 81 mg daily , atorvastatin 40 mg daily, carvedilol 12.5 mg twice daily Heparin drip ACS protocol CABG today 2. Hypertensive urgency - normotensive BP trend better continue carvedilol 25 mg BID, amlodipine 5 mg p o BID continue IV hydralazine 10 mg Q6H PRN for SBP > 170 mmHg adjust meds as needed 3. Tobacco and alcohol use Counseled cessation CT chest showed mild emphysema and pulmonary nod ule pulmonary consulted 4. Chronic back pain. manage per primary team at 1335 Electronically Signed by Milagros Weaver MD on at 1524 RPT #:[id number] END OF REPORT 2023-01-02 09:43:00-00:00 [facility] Pulmonology Progress Note REPORT#:[id number] REPORT STATUS: Signed DATE:01/02/23 TIME: 942 PATIENT: SHEKHAR LOZADA UNIT #: [id number] ROOM/BED: [place] [address] : 69 AGE: 52 SEX: M ATTEND: Sheila Crabtree MD ADM AUTHOR: Rod Hancock WAITER/WAITRESS SECOND CLASS * ALL edits or amendments must be made on the [employer]/computer document * Subjective Chief complaint: He is waiting for His PFT. His CP and SOB better. No CP, fever, chills. No N/v/d. Review of Systems ROS Constitutional: fatigue, generalized weakness. Allergy/Immun: Denies: anaphylaxis, itching, rhinorrhea. Respiratory: Denies: hemoptysis, pleurisy, pleuritic pain, pn eumonia, productive cough ( sputum). Cardiovascular: Denies: KISER (dyspnea on exertion), orthopnea, pa lpitations. GI: Denies: constipation, GERD, hematochezia, melena . : Denies: flank pain, testicular swelling. Musculoskeletal: Denies: extremity pain, joint swelling, neck freeman n, thoracic pain. Heme: Denies: bleeding, bruising. Neuro: Denies: change in LOC, dizziness, focal weakness , gait problem, headache, spinning sensation, syncope. Objective General VS/I O: Last Documented: Result Date Time Pulse Ox 94 01/02 05 B/P 116/77 01/02 0532 B/P Mean 89.8 01/02 0532 Temp 36.5 01/02 0532 Pulse 62 01/02 0532 Resp 18 01/02 0532 O2 Delivery Room air 01/01 1635 24 hour I O ending at 0700: 01/02 0700 01/01 1900 Intake Total 538.00 1488.00 Output Total Balance 538.00 1488.00 Intake, IV 288.00 288.00 Intake, Oral 250 1200 Number 1 Bowel Movements Number Voids 4 4 Patient 107.7 kg Weight Weight Standing scale Measurement Method PATIENT WEIGHT: Weight (lb): 237 Weight (oz): 7.01 Weight (kg): 107.700 Medications: Active Meds + DC'd Last 24 Hrs Acetaminophen (TYLENOL EXTRA STRENGTH) 1,000 MG PREOP ONCALL PO (CKD) Gabapentin (NEURONTIN) 200 MG PREOP ONCALL PO (C KD) Lactated Ringer's (LACTATED RINGERS) 1,000 ML AZ EOP ONCALL IV Lidocaine HCl (LIDOCAINE HCL/PF) 2 ML PREOP ONCA LL LOCAL Lidocaine HCl (LIDOCAINE HCL/PF) 2 ML PREOP ONCA LL LOCAL Sodium Chloride (SODIUM CHLORIDE 0.9%) 500 ML AZ EOP ONCALL IV Sodium Chloride (SODIUM CHLORIDE) 5 ML ASDIR PRN IV Sodium Chloride (SODIUM CHLORIDE) 10 ML ASDIR AZ N IV Sodium Chloride (SODIUM CHLORIDE 0.9%) 250 ML DIR PRN IV Cefazolin Sodium (KEFZOL OR ANCEF) 2 GM PREOP ELECTRON TUBE ASSEMBLER IV (CKD) Metoprolol Tartrate (LOPRESSOR) 6.25 MG ONCE ONE PO (DC) Vancomycin HCl (VANCOMYCIN HCL) 1,618.5 MG PREOP ONCALL IV (CKD) Sodium Chloride (SODIUM CHLORIDE 0.9%) 250 ML Verapamil HCl (ISOPTIN) 16.6 MG .Q24H ONE IV (C KD) Heparin Sodium (Porcine) (HEPARIN SODIUM) 1,660 UNIT Sodium Bicarbonate (SODIUM BICARBONATE) 0.7 ML Nitroglycerin/Dextrose (NITROGLYCERIN 50MG/D5W 250ML) 8.3 MG Lactated Ringer's (LACTATED RINGERS) 949.5 ML Amlodipine Besylate (NORVASC) 5 MG BID PO Magnesium Sulfate/Dextrose (MAGNESIUM SULFATE 1G M/D5W 100ML) 100 ML ONCE ONE IV (DC) Sodium Chloride (SODIUM CHLORIDE) 20 ML ASDIR IV Magnesium Sulfate (MAGNESIUM SULFATE 2GM/SWFI 50 ML) 50 ML DAILY PRN PRN IV (CKD) Albuterol/Ipratropium (DUONEB) 3 ML RTQ4H PRN [place] N NEB Tramadol HCl (ULTRAM) 50 MG Q6H PRN PRN PO Albuterol Sulfate (ALBUTEROL SULFATE) 2.5 MG RT ONCE ONE NEB (DC) Carvedilol (COREG) 25 MG BID PO Aspirin (ASPIRIN) 81 MG DAILY PO Atorvastatin Calcium (LIPITOR) 40 MG 2100 PO Mupirocin (BACTROBAN 2% 22 GM OINTMENT) 1 APPLIC BID NASAL Heparin Sodium (HEPARIN 5000 UNITS/ML) 0 ASDIR P RN IV Heparin Sodium (Porcine) (HEPARIN 25,000 UNITS/ 1/2NS 500ML) 500 ML ASDIR IV (CKD) Hydralazine HCl (APRESOLINE) 10 MG Q6H PRN PRN I V Acetaminophen (TYLENOL) 650 MG Q4H PRN PRN PO Amlodipine Besylate (NORVASC) 5 MG DAILY PO (DC) Hydrocodone Bitart/Acetaminophen (NORCO 5/325) 1 TAB Q6H PRN PRN PO Dietitian nutrition assessment The data set between the solid lines has been im ported from the dietitian's assessment. BMI Calculated: 39.5 Nutrition related diagnosis: Nutrition diagnosis details: Nutrition problem: Nutrition etiology: Nutrition signs and symptoms: Nutrition prescription: Dietitian name: Assessment completed: Physical Exam General appearance: alert, awake, oriented Head/eyes: atraumatic, normocephalic, PERRLA Cardiovascular: normal heart sounds, normal S1/S 2, regular rate rhythm Respiratory/chest: aerating well, clear to auscultation, symmetric expansion, no distress Abdomen: soft, non-tender, no CVA tenderness Genitourinary: no bladder distention, no flank p ain Extremities: no clubbing, no cyanosis, no edema Musculoskeletal: no muscle spasm Neuro/ASBESTOS CLOTH INSPECTOR: alert, oriented X 3, CNII-XII intact Results Findings/Data: Laboratory Tests 01/02/23 0333: [Embedded Image Not Available] 01/01/23 1317: [Embedded Image Not Available] 01/01/23 1027: [Embedded Image Not Available] Laboratory Tests 01/02 01/01 01/01 0333 1317 1027 Chemistry Sodium (134 - 147 mEq/L) 140 137 139 Potassium (3.4 - 5.0 mEq/L) 4.1 4.1 4.1 Chloride (100 - 108 mEq/L) 107 103 105 Carbon Dioxide (21 - 33 mEq/l) 27 26 27 Anion Gap (0 - 20) 10 12 11 BUN (7 - 18 mg/dL) 9 10 10 Creatinine (0.6 - 1.3 mg/dL) 0.8 0.8 0.9 Glomerular Filtr Rate (90 - 95) 105.8 H 105.8 H 102.1 H Glucose (70 - 110 mg/dL) 146 H 243 H 213 H Calcium (8.0 - 10.5 mg/dL) 8.6 8.9 9.1 Magnesium (1.80 - 2.40 mg/dL) 2.16 1.95 Total Bilirubin (0.0 - 1.0 mg/dL) 0.50 AST (15 - 37 IUnit/L) 51 H ALT (30 - 65 IUnit/L) 66 H Total Alk Phosphatase (20 - 125 IUnit/L) 102 Total Protein (6.4 - 8.2 g/dL) 6.4 Albumin (3.4 - 5.0 g/dL) 3.80 Laboratory Tests 01/02 01/01 0333 1317 Coagulation INR (0.8 - 1.2) 1.1 PTT (So) (25.0 - 39.5 Seconds) 62.5 H 65.6 H PT Patient/Control Mix (9.3 - 12.9 SECONDS) 11. 7 Laboratory Tests 01/02 01/01 0333 1317 Hematology WBC (4.5 - 11.0 x10 3/uL) 6.9 6.5 RBC (4.00 - 5.60 x10 6/uL) 4.72 4.83 Hgb (12.5 - 16.9 g/dL) 15.0 15.3 Hct (37.5 - 50.7 %) 43.5 44.9 MCV (81.0 - 99.0 fL) 92.2 93.0 MCH (27.0 - 33.0 pg) 31.8 31.7 MCHC (33.0 - 37.0 g/dL) 34.5 34.1 RDW (11.5 - 14.5 %) 13.1 13.2 Plt Count (150 - 400 x10 3/uL) 166 170 MPV (7.0 - 9.0 fL) 9.8 H 10.3 H Neut % (Auto) (56.0 - 77.0 %) 57.9 64.7 Lymph % (Auto) (14.0 - 32.0 %) 27.2 21.3 [place] % (Auto) (4.8 - 9.0 %) 9.7 H 9.2 H Eos % (Auto) (0.3 - 3.7 %) 3.9 H 3.7 Baso % (Auto) (0.0 - 2.0 %) 0.6 0.6 Neut # (Auto) (2.0 - 7.6 x10 3/uL) 4.02 4.22 Lymph # (Auto) (1.0 - 3.8 x10 3/uL) 1.89 1.39 [place] # (Auto) (0.1 - 0.8 x10 3/uL) 0.67 0.60 Eos # (Auto) (0.0 - 0.2 x10 3/uL) 0.27 H 0.24 H Baso # (Auto) (0.0 - 0.2 x10 3/uL) 0.04 0.04 Abs Immat Gran (auto) (0.00 - 0.03 x10 3/uL) 0. 05 H 0.03 Add Manual Diff NO NO Immature Gran % (0.0 - 2.0 %) 0.7 0.5 Nucleated RBC % (0 - 0 %) 0.0 0.0 Nucleated RBCs # (Man) (0.0 - 0.1 x10 3/uL) 0.0 0 0.00 Laboratory Tests 01/01 1450 Serology SARS-CoV-2 Ag (Rapid) (Negative) Negative Microbiology Date/Time Procedure - Status Source Growth 01/01 1450 MSSA Surveillance Screen - COMP NASAL 01/01 1450 MRSA DNA Surveillance Screen - COMP NASAL Results: labs reviewed, vital signs reviewed, vi brandon signs stable, current med profile rev'd Treatment Prophylaxis Treatment Prophylaxis Oxygen: room air Diagnosis, Assessment Plan Free Text A P: Assessment and Plan: - Dyspnea due to Multivessel CAD and Emphysema. - Emphysema/COPD. - Multivessel CAD. - CP due to CAD. - HX of HTN. - Smoker. Plan: CVN1. PFTSs. Will continue Bronchodilator, Monitor respirator y status, breathing tx, o2 support. Preop work up per CV surgery. Pain meds. Antiemetics. Follow labs and replace as needed. SCDs for DVT ppx. Continue Home meds. Monitor. Code status: full code Plan discussed with: patient, admitting physicia n, consultants, nurse Quality: Gen Med Crit Care Advanced Care Plan 65 or Older Discussed with: patient Electronically Signed by Rod Hancock NP on at 0945 Electronically Signed by Rupinder Marcus MD on at 1004 RPT #:[id number] END OF REPORT 2023-01-01 13:17:00-00:00 [facility] ([facility]) Clinical Note REPORT#:[id number] REPORT STATUS: Signed DATE:01/01/23 TIME: 1317 PATIENT: SHEKHAR LOZADA UNIT #: [id number] ROOM/BED: [address] : 69 AGE: 52 SEX: M ATTEND: Sheila Crabtree MD ADM AUTHOR: Zabrina Ruiz * ALL edits or amendments must be made on the [employer] document * Clinical Note Note: Risk of Mortality: 0.394% Renal Failure: 0.524% Permanent Stroke: 0.369% Prolonged Ventilation: 3.674% DSW Infection: 0.330% Reoperation: 0.993% Morbidity or Mortality: 5.281% Short Length of Stay: 72.099% Long Length of Stay: 1.191% at 1318 RPT #:[id number] END OF REPORT 2023-01-01 10:50:00-00:00 [facility]) Pulmonary Consultation Note REPORT#:[id number] REPORT STATUS: Signed DATE:01/01/23 TIME: 1050 PATIENT: SHEKHAR LOZADA UNIT #: [id number] ROOM/BED: [place] [address] : 68 AGE: 52 SEX: M ATTEND: Sheila Crabtree MD ADM AUTHOR: Rod Hancock NP * ALL edits or amendments must be made on the [employer] document * History of Present Illness HPI Requesting clinician: Dr. Crabtree Reason for consult: SOB and COPD Chief complaint: CP and SOB PCP: PCP: Eric Crabtree MD HPI: This is a 52-year-old gentle man with a past medical history of hypertension who initially presented to an outside hospital with complaints of back pain, and chest pains. He started to d evelop chest pains located midsternal for the past 2 weeks. He describes the ches t pains as a heaviness, squeezing sensation. Patient underwent left heart cathete rization by Dr. Felton at [facility] this showed multivessel CAD with a 90% LAD, 60-70% le ft main, 70-80% circumflex. An echocardiogram was also done at [facility] on 12/28/2022. This showed a normal left ventricular ejection fractio n of 55-60%, moderate LVH, mild mitral regurgitation, grade 1 diast olic dysfunction. He admits to smoking 1-2 times per week. Does admit to alcohol 1-2 times per week. We were consulted for the management of COPD/emp hysema. History - Adult longitudinal Past medical history: Reports: Hypertension. Denies: Diabetes mellitus . Additional medical history: Hypertension Additional surgical history: Denies past surgical history Additional family history: Coronary artery disease in his father, grandmoth er with coronary artery bypass Alcohol use: Alcohol use (consume 12 beers/weekl y) Drug use: Denies recreational drugs Smoking status for patients 13 years old or olde r: Current some day smoker Date last smoked: 12/14/22 Packs per day: 8 Medications: Home Medications: Medication Dose/Rte/Freq Days Qty Entered Last Max Daily Dose Reviewed LISINOPRIL/HCTZ 1 TAB PO DAILY 12/30/22 3 (ZESTORETIC 10/12.5 MG) 0734 0734 Strength: 10 MG-12.5 MG TAB Current Hospital Medications: Autonomic Drugs Sig/Dorothy Start time Last Medication Dose Route Stop Time Status Admin Albuterol Sulfate 2.5 MG RTONCE ONE 01/01 0945 DC (ALBUTEROL SULFATE) NEB 01/01 0946 Blood Formation,Coagulation Sig/Dorothy Start time Last Medication Dose Route Stop Time Status Admin Heparin Sodium 0 ASDIR PRN 12/30 1400 AC (HEPARIN 5000 UNITS/ IV 01/29 1359 ML) Heparin Sodium 500 ML ASDIR 12/30 1400 CKD 12/14 9 (Porcine) IV 01/29 1359 0941 (HEPARIN 25,000 UNITS/ 1/2NS 500ML) Cardiovascular Drugs Sig/Dorothy Start time Last Medication Dose Route Stop Time Status Admin Carvedilol 25 MG BID 01/01 0900 AC 01/01 (COREG) PO 01/31 0859 0940 Carvedilol 12.5 MG BID 12/31 2100 DC 12/31 (COREG) PO 01/30 Atorvastatin Calcium 40 MG 2100 12/30 2100 AC 0 12/31 (LIPITOR) PO 01/29 Hydralazine HCl 10 MG Q6H PRN PRN 12/30 1245 AC 12/30 (APRESOLINE) IV 01/29 1244 2206 Amlodipine Besylate 5 MG DAILY 12/30 1100 AC (NORVASC) PO 01/29 1059 0940 Central Nervous System Agents Sig/Dorothy Start time Last Medication Dose Route Stop Time Status Admin Tramadol HCl 50 MG Q6H PRN PRN 01/01 1015 AC (ULTRAM) PO 01/06 1014 Aspirin 81 MG DAILY 12/31 0900 AC 01/01 (ASPIRIN) PO 01/30 0859 0937 Acetaminophen 650 MG Q4H PRN PRN 12/30 1100 AC 12/31 (TYLENOL) PO 01/29 1059 2148 Hydrocodone Bitart/ 1 TAB Q6H PRN PRN 12/30 110 0 AC 01/01 Acetaminophen PO 01/04 1059 0612 (NORCO 5/325) Skin And Mucous Membrane Agent Sig/Dorothy Start time Last Medication Dose Route Stop Time Status Admin Mupirocin 1 APPLIC BID 12/30 2100 AC 01/01 (BACTROBAN 2% 22 GM NASAL 01/04 0901 0938 OINTMENT) Allergies: Coded Allergies: No Known Allergies (12/30/22) Occupation: [employer] Ambulatory status: Independent Review of Systems Constitutional: Reports: fatigue, generalized weakness. Allergy/Immun: Denies: anaphylaxis, hives, itching. ENT: Denies: ear ringing, nose bleeding, throat swell ing. Respiratory: Reports: KISER (dyspnea on exertion), SOB. Cardiovascular: Reports: chest pain. Denies: edema, orthopnea, p alpitations, parox nocturnal dyspnea. GI: Denies: abdominal pain, constipation, GERD, jameson temesis, hiatal hernia. : Denies: flank pain, frequency, nocturia. Heme: Denies: bleeding, bruising. Neuro: Denies: bowel dysfunction, c onfusion, gait problem, headache, numbness, seizure. Objective Physical Exam Vitals: Last Documented: Result Date Time Pulse Ox 96 01/01 1019 B/P 167/98 01/01 1019 B/P Mean 0.0 01/01 1019 O2 Delivery Room air 01/01 1019 Temp 36.6 01/01 1019 Pulse 67 01/01 1019 Resp 14 01/01 1019 General appearance: alert, awake, oriented Head/eyes: atraumatic, normocephalic, PERRLA Cardiovascular: normal heart sounds, normal S1/S 2, regular rate rhythm Respiratory/chest: aerating well, clear to auscultation, symmetric expansion, no distress Abdomen: soft, non-tender, no CVA tenderness Genitourinary: no bladder distention, no flank p ain Extremities: no clubbing, no cyanosis, no edema Musculoskeletal: no muscle spasm Neuro/ASBESTOS CLOTH INSPECTOR: alert, oriented X 3, CNII-XII intact Results Findings/Data: Laboratory Tests 01/01/23404: [Embedded Image Not Available] Laboratory Tests 01/01 1134 Coagulation PTT (King) (25.0 - 39.5 Seconds) 60.3 H 61.1 H Laboratory Tests 01/01 405 Hematology WBC (4.5 - 11.0 x10 3/uL) 6.0 RBC (4.00 - 5.60 x10 6/uL) 4.75 Hgb (12.5 - 16.9 g/dL) 14.9 Hct (37.5 - 50.7 %) 44.0 MCV (81.0 - 99.0 fL) 92.6 MCH (27.0 - 33.0 pg) 31.4 MCHC (33.0 - 37.0 g/dL) 33.9 RDW (11.5 - 14.5 %) 13.2 Plt Count (150 - 400 x10 3/uL) 178 MPV (7.0 - 9.0 fL) 10.7 H Neut % (Auto) (56.0 - 77.0 %) 55.9 L Lymph % (Auto) (14.0 - 32.0 %) 27.5 [place] % (Auto) (4.8 - 9.0 %) 10.9 H Eos % (Auto) (0.3 - 3.7 %) 4.7 H Baso % (Auto) (0.0 - 2.0 %) 0.5 Neut # (Auto) (2.0 - 7.6 x10 3/uL) 3.35 Lymph # (Auto) (1.0 - 3.8 x10 3/uL) 1.65 [place] # (Auto) (0.1 - 0.8 x10 3/uL) 0.65 Eos # (Auto) (0.0 - 0.2 x10 3/uL) 0.28 H Baso # (Auto) (0.0 - 0.2 x10 3/uL) 0.03 Abs Immat Gran (auto) (0.00 - 0.03 x10 3/uL) 0. 03 Add Manual Diff NO Immature Gran % (0.0 - 2.0 %) 0.5 Nucleated RBC % (0 - 0 %) 0.0 Nucleated RBCs # (Man) (0.0 - 0.1 x10 3/uL) 0.0 0 Results: labs reviewed, vital signs reviewed, vi brandon signs stable, current med profile rev'd Diagnosis, Assessment Plan Diagnosis, Assessment Plan Plan discussed with: patient, admitting physicia n, consultants, nurse Code Status/Resusc. Discussion Code status: full code Free Text DxA P Notes Free Text DxA P Notes: Assessment and Plan: - Dyspnea due to Multivessel CAD and Emphysema. - Emphysema/COPD. - Multivessel CAD. - CP due to CAD. - HX of HTN. - Smoker. Plan: CVN1. PFTs tomorrow. He will be benefit from Bronchodilator preop for emphysema. We will start on Bronchodilator, Monitor respira tory status, breathing tx, o2 support. Preop work up per CV surgery. Pain meds. Antiemetics. Follow labs and replace as needed. SCDs for DVT ppx. Continue Home meds. Monitor. Electronically Signed by Rod Hancock NP on at 1056 Electronically Signed by Rupinder Marcus MD on at 1004 RPT #:[id number] END OF REPORT 2023-01-01 08:56:00-00:00 [facility] ([facility]) Cardiology Progress Note REPORT#:[id number] REPORT STATUS: Signed DATE:01/01/23 TIME: 0856 PATIENT: SHEKHAR LOZADA UNIT #: [id number] ROOM/BED: 3349-1 : 69 AGE: 52 SEX: M ATTEND: Sheila Crabtree MD ADM AUTHOR: Doreen Villarreal WAITER/WAITRESS SECOND CLASS * ALL edits or amendments must be made on the el [employer]/computer document * Subjective Chief complaint: Back pain. Patient reports: No: abdominal pain, chest pain, shortness of cheko ath. Nursing reports: No: complaints. Comments: Patient is on room air, comp brigid back pain-reports taking BC powder at home but do not control his pain. Reports Sumner is not helping his back pain. He is on heparin drip at 12 units/kg/h. Telemetry shows normal sinus rhythm Objective General VS/I O: 24 hour I O ending at 0700: 12/31 1900 01/01 0700 Intake Total 1288.00 648.00 Output Total Balance 1288.00 648.00 Intake, IV 288.00 288.00 Intake, Oral 1000 360 Number 2 Bowel Movements Number Voids 3 3 Patient 107.9 kg Weight Weight Standing scale Measurement Method Vital Signs: Date Time Temp Pulse Resp B/P B/P Pulse O2 O2 F low FiO2 Mean Ox Delivery Rate 01/01 1104 96 Room air 01/01 1019 97.9 67 14 167/98 0.0 96 Room air 01/01 0738 97.9 62 14 95 Room air 01/01 0424 97.9 73 16 154/82 105.6 96 12/31 2335 98.1 78 22 158/89 112.2 96 12/31 1953 98.1 72 17 165/102 122.8 95 12/31 1854 76 17 97 12/31 1800 79 14 94 12/31 1700 66 14 96 12/31 1600 79 34 98 12/31 1517 98.1 62 12 169/99 122.0 97 Room air 12/31 1500 65 21 96 12/31 1400 69 18 95 PATIENT WEIGHT: Weight (lb): 237 Weight (oz): 14.06 Weight (kg): 107.900 Medications: Active Meds + DC'd Last 24 Hrs Carvedilol (COREG) 12.5 MG BID PO Aspirin (ASPIRIN) 81 MG DAILY PO Atorvastatin Calcium (LIPITOR) 40 MG 2100 PO Mupirocin (BACTROBAN 2% 22 GM OINTMENT) 1 APPLIC BID NASAL Heparin Sodium (HEPARIN 5000 UNITS/ML) 0 ASDIR P RN IV Heparin Sodium (Porcine) (HEPARIN 25,000 UNITS/ 1/2NS 500ML) 500 ML ASDIR IV (CKD) Hydralazine HCl (APRESOLINE) 10 MG Q6H PRN PRN I V Acetaminophen (TYLENOL) 650 MG Q4H PRN PRN PO Amlodipine Besylate (NORVASC) 5 MG DAILY PO Hydrocodone Bitart/Acetaminophen (NORCO 5/325) 1 TAB Q6H PRN PRN PO Physical Exam General appearance: alert, awake, orient ed, no acute distress, conversational, mental status normal, no respiratory distress Head/Eyes: atraumatic, clear cornea ENT: moist mucosal membranes Neck: non-tender, no bruit/NL carotids Cardiovascular: CV assessment: regular rate and rhythm Respiratory: decreased breath sounds, no distres s Abdomen: non-tender, obese Genitourinary: no flank pain, no urinary cathete r Lower extremity: LE assessment: no calf tenderness, no edema Musculoskeletal: normal inspection Neuro/ASBESTOS CLOTH INSPECTOR: alert, oriented X 3, normal speech Skin: dry, intact, normal color Psychiatry: normal affect, normal mood Results Findings/Data: Laboratory Tests 01/01 1027 Chemistry Sodium (134 - 147 mEq/L) 139 Potassium (3.4 - 5.0 mEq/L) 4.1 Chloride (100 - 108 mEq/L) 105 Carbon Dioxide (21 - 33 mEq/l) 27 Anion Gap (0 - 20) 11 BUN (7 - 18 mg/dL) 10 Creatinine (0.6 - 1.3 mg/dL) 0.9 Glomerular Filtr Rate (90 - 95) 102.1 H Glucose (70 - 110 mg/dL) 213 H Calcium (8.0 - 10.5 mg/dL) 9.1 Magnesium (1.80 - 2.40 mg/dL) 1.95 Laboratory Tests 01/01 0405 Coagulation PTT (So) (25.0 - 39.5 Seconds) 60.3 H Laboratory Tests 01/01 0405 Hematology WBC (4.5 - 11.0 x10 3/uL) 6.0 RBC (4.00 - 5.60 x10 6/uL) 4.75 Hgb (12.5 - 16.9 g/dL) 14.9 Hct (37.5 - 50.7 %) 44.0 MCV (81.0 - 99.0 fL) 92.6 MCH (27.0 - 33.0 pg) 31.4 MCHC (33.0 - 37.0 g/dL) 33.9 RDW (11.5 - 14.5 %) 13.2 Plt Count (150 - 400 x10 3/uL) 178 MPV (7.0 - 9.0 fL) 10.7 H Neut % (Auto) (56.0 - 77.0 %) 55.9 L Lymph % (Auto) (14.0 - 32.0 %) 27.5 [place] % (Auto) (4.8 - 9.0 %) 10.9 H Eos % (Auto) (0.3 - 3.7 %) 4.7 H Baso % (Auto) (0.0 - 2.0 %) 0.5 Neut # (Auto) (2.0 - 7.6 x10 3/uL) 3.35 Lymph # (Auto) (1.0 - 3.8 x10 3/uL) 1.65 [place] # (Auto) (0.1 - 0.8 x10 3/uL) 0.65 Eos # (Auto) (0.0 - 0.2 x10 3/uL) 0.28 H Baso # (Auto) (0.0 - 0.2 x10 3/uL) 0.03 Abs Immat Gran (auto) (0.00 - 0.03 x10 3/uL) 0. 03 Add Manual Diff NO Immature Gran % (0.0 - 2.0 %) 0.5 Nucleated RBC % (0 - 0 %) 0.0 Nucleated RBCs # (Man) (0.0 - 0.1 x10 3/uL) 0.0 0 Laboratory Tests 01/01 1027 Chemistry Magnesium (1.80 - 2.40 mg/dL) 1.95 Results: labs reviewed, vital signs reviewed, vi brandon signs stable, rhythm personally rev'd, current med profile rev'd Telemetry Interpretation: Normal sinus rhythm Diagnosis, Assessment Plan Problem List/A P: 1. Non-STEMI (non-ST elevated myocardial infarc tion) 2. Coronary artery disease due to calcified cor onary lesion 3. Hypertension Plan discussed with: patient, nurse Free Text DxA P Notes Free Text DxA P Notes: 52-year-old male wi th medical history of hypertension, lifelong smoker, alcohol use who presents to ED at [facility] with back pain and chest pain. He was ruled in for non-STEMI. Taken to [facility] where he was found to have multivessel CAD with tight left main. Patient is transferred here for CABG evaluation. He is not having active chest pain. His main complaint is back pain and headache. His blood pressure is markedly elevated at the time of visit, 208/111 mmHg. 1. NSTEMI/multivessel CAD with left main disease CTS evaluation, CABG preoperative work-up ongoin g continue aspirin 81 mg daily , atorvastatin 40 mg daily, carvedilol 12.5 mg twice daily continue Heparin drip ACS protocol 2. Hypertensive urgency BP trend better but still suboptimal, BP 154-169 /82-102 mmHg continue carvedilol to 25 mg BID, increase amlodipine 5 mg po biid. continue IV hydralazine 10 mg Q6H PRN for SBP > 170 mmHg Monitor blood pressure closely and adjust meds a s needed 3. Tobacco and alcohol use Counseled cessation CT chest showed mild emphysema and pulmonary nod ule Patient may need pulmonary consultation -defer t o CTS 4. Chronic back pain. Add tramadol 50mg po q6h PRN. Electronically Signed by Doreen Villarreal NP on at 1317 Electronically Signed by Mert Mccall MD on at 1724 RPT #:[id number] END OF REPORT 2023-01-01 07:27:00-00:00 [facility] Cardiothoracic Surgery Prog REPORT#:[id number] REPORT STATUS: Signed DATE:01/01/23 TIME: 726 PATIENT: SHEKHAR LOZADA UNIT #: [id number] ROOM/BED: [place] [address] : 69 AGE: 52 SEX: M ATTEND: Sheila Crabtree MD ADM AUTHOR: Zabrina Ruiz Physic * ALL edits or amendments must be made on the [employer]/computer document * Subjective Chief complaint: Multi-vessel CAD- Eval for CAB Review of Systems Constitutional: Denies: fatigue, fever. Skin: Denies: rash, swelling. Eyes: Denies: redness, discharge, swelling. ENT: Denies: ear drainage, ear ringing. Respiratory: Denies: SOB, wheezing. Cardiovascular: Denies: chest pain, KISER (dyspnea on exertion), e sushila. GI: Denies: constipation, diarrhea. : Denies: hematuria, nocturia. Musculoskeletal: Denies: joint pain, joint swelling. Heme: Denies: bleeding, bruising. Endocrine: Denies: polydipsia, polyuria. Neuro: Denies: confusion, dizziness. All systems rev neg: except as marked Objective General VS/I O Last Documented: Result Date Time Pulse Ox 96 01/02 424 B/P 154/82 01/01 0424 B/P Mean 105.6 01/02 424 Temp 97.9 01/01 0424 Pulse 73 01/01 0424 Resp 16 01/01 0424 O2 Delivery Room air 12/31 1517 24 hour I O ending at 0700: 01/01 0700 12/31 1900 Intake Total 648.00 1288.00 Output Total Balance 648.00 1288.00 Intake, IV 288.00 288.00 Intake, Oral 360 1000 Number 2 Bowel Movements Number Voids 3 3 Patient 107.9 kg Weight Weight Standing scale Measurement Method PATIENT WEIGHT: Weight (lb): 237 Weight (oz): 14.06 Weight (kg): 107.900 Physical Exam General appearance: alert, awake, oriented HEENT: anicteric, mucosal membranes moist Neck: full range of motion, non-tender Cardiovascular: BP/pulses equal bilat., regular rate rhythm Respiratory: aerating well, clear to auscultatio n Abdomen: soft, non-tender Extremities: dry, moves all Musculoskeletal: full range of motion, painless range of motion Neuro/ASBESTOS CLOTH INSPECTOR: alert, oriented X 3 Skin: dry, intact Quality: Trauma Gen Surg Advanced Care Plan 65 or Older Discussed with: patient Diagnosis, Assessment Plan Hospital course to date: This is a 52-year-old gentle man with a past medical history of hypertension who initially presented to an outside hospital with complaints of back pain, and chest pains. He reports the back pain as mid upper back pain that occurred over the last couple of weeks. Usually pain is worse with gonzalez ging position The patient reports he start ed to develop chest pains located midsternal for the past 2 weeks. He denies any radiating symptoms. Describes the chest pains as a heaviness, squeez ing sensation. Denies any syncope, palpitations. Denies any nausea vomitin g or diaphoresis. Patient underwent left heart catheterization by Dr. Felton at [facility] this showed multi vessel CAD with a 90% LAD, 60-70% left main, 70-80% circumflex. An echocardiogram was also done at [facility] on 12/28/2022. This showed a normal left ventricular ejection fractio n of 55-60%, moderate LVH, mild mitral regurgitation, grade 1 diastolic dysfunction. The patient does admit to sm oking 1-2 times per week. Does admit to alcohol 1-2 times per week. Patient does have a strong famil y history of coronary artery disease in his father and his grandmother. Denies any surgical history, Review of the records from [facility] show the p micah was admitted with a troponin peak of 483. Hemoglobin A1c was noted t o be 5.5. Renal function appears normal. Patient was transferred to [facility] for khai ation for coronary bypass graft surgery. Hemoglobin A1c noted to be 5.[address] [facility] Assessment/plan 1.coronary artery disease Begin work-up for coronary artery bypass graft with appropriate studies. 2. Hypertension 3. Chest pains Patient has been seen and examined by Dr. Jose fatima. Work-up underway for coronary artery bypass graft surgery. Further recommendations to follow 12/31/22 Patient resting comfortable denies pain. AAOx3 Respiratory: 100% oxygen on room air. Cardiac: Remains sinus rhythm GI: Denies constipation diarrhea positive bowel movement. : Voiding well. 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 Likely consider coronary artery bypass surgery e preet next week. Patient was seen and examine d by Dr. Crabtree. Further recommendations to follow 01/01 Patient resting comfortable denies pain. AAOx3 Respiratory: 100% oxygen on room air. Cardiac: Remains sinus rhythm GI: Denies constipation or diarrhea, positive ramon wel movement. : Voiding well. 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 Pulmonary consulted for history of smoking and a bnormal CT suggestive of emphysema. PFT hopefully to be completed in the morning. STS 0.39% Patient was seen and examine d by Dr. Crabtree. Further recommendations to follow Coronary artery bypass graft surgery was discuss ed with the patient. The risk of the operation including , bleeding, infe ction, heart attack, stroke, pneumonia, renal failure, dialysis, prol onged ICU stay, car tracheostomy, need for long-term rehabilitation were all discussed with the patient. Patient's questions were answered and the patient agreed t o proceed with surgery. at 1317 at 1555 RPT #:[id number] END OF REPORT 2022-12-31 10:54:00-00:00 [facility] REPORT#:[id number] REPORT STATUS: Signed DATE:12/31/22 TIME: 1054 PATIENT: SHEKHAR LOZADA UNIT #: [id number] ROOM[facility]BED: [facility] : 69 AGE: 52 SEX: M ATTEND: Sheila Crabtree MD ADM AUTHOR: Zabrina Ruiz Physic * ALL edits or amendments must be made on the [employer]/computer document * Subjective Chief complaint: Chest pains Eval for CAD Review of Systems Constitutional: Denies: fatigue, fever. Skin: Denies: rash, swelling. Eyes: Denies: redness, discharge, swelling. ENT: Denies: ear drainage, ear ringing. Respiratory: Denies: SOB, wheezing. Cardiovascular: Denies: chest pain, KISER (dyspnea on exertion), e sushila. GI: Denies: constipation, diarrhea. : Denies: hematuria, nocturia. Musculoskeletal: Denies: joint pain, joint swelling. Heme: Denies: bleeding, bruising. Endocrine: Denies: polydipsia, polyuria. Neuro: Denies: confusion, dizziness. All systems rev neg: except as marked Objective General VS/I O Last Documented: Result Date Time Pulse Ox 95 12/31 730 B/P 160/91 12/31 730 B/P Mean 113.6 12/31 730 O2 Delivery Room air 12/31 730 Temp 97.5 12/31 730 Pulse 67 12/31 730 Resp 12 12/31 730 24 hour I O ending at 0700: 12/31 699 12/30 1900 Intake Total 440.00 Output Total Balance 440.00 Intake, IV 200.00 Intake, Oral 240 Number 1 Bowel Movements Number Voids 5 Patient 107.3 kg 100.6 kg Weight Weight Standing scale Standing scale Measurement Method PATIENT WEIGHT: Weight (lb): 236 Weight (oz): 8.9 Weight (kg): 107.300 Physical Exam General appearance: alert, awake HEENT: anicteric, mucosal membranes moist Neck: full range of motion, non-tender Cardiovascular: BP/pulses equal bilat., regular rate rhythm Respiratory: aerating well, clear to auscultatio n Abdomen: soft, non-tender Extremities: dry, moves all Musculoskeletal: full range of motion, painless range of motion Neuro/ASBESTOS CLOTH INSPECTOR: alert, oriented X 3 Skin: dry, intact Results Findings/Data: Laboratory Tests 12/31 12/30 12/30 12/30 0540 1528 1528 1528 Chemistry Sodium (134 - 147 mEq/L) 137 143 Potassium (3.4 - 5.0 mEq/L) 4.0 3.9 Chloride (100 - 108 mEq/L) 103 103 Carbon Dioxide (21 - 33 mEq/l) 25 31 Anion Gap (0 - 20) 13 13 BUN (7 - 18 mg/dL) 8 10 Creatinine (0.6 - 1.3 mg/dL) 0.8 0.8 Glomerular Filtr Rate (90 - 95) 105.8 H 105.8 H Glucose (70 - 110 mg/dL) 153 H 240 H Hemoglobin A1c (4.8 - 6.0 %A1C) 5.5 Calcium (8.0 - 10.5 mg/dL) 9.3 9.1 Magnesium (1.80 - 2.40 mg/dL) 2.20 Total Bilirubin (0.0 - 1.0 mg/dL) 0.60 AST (15 - 37 IUnit/L) 35 ALT (30 - 65 IUnit/L) 47 Total Alk Phosphatase (20 - 125 IUnit/L) 89 B-Natriuretic Peptide (0 - 100 PG/ML) 81.0 Total Protein (6.4 - 8.2 g/dL) 6.5 Albumin (3.4 - 5.0 g/dL) 3.80 Triglycerides (40 - 150 mg/dL) 452 H Cholesterol (<200 mg/dL) 162 LDL Cholesterol Measurd (0 - 100 mg/dL) 76.0 HDL Cholesterol (32 - 72 mg/dL) 23.5 L Cholesterol/HDL Ratio (3.43 - 4.97 RATIO) 6.89 H Laboratory Tests 12/31 12/30 12/30 12/30 0540 2340 1528 1528 Coagulation INR (0.8 - 1.2) 1.1 PTT (So) (25.0 - 39.5 Seconds) 58.3 H 52.0 H 33.1 PT Patient/Control Mix (9.3 - 12.9 SECONDS) 11. 9 Laboratory Tests 12/31 12/30 0540 1528 Hematology WBC (4.5 - 11.0 x10 3/uL) 6.9 5.5 RBC (4.00 - 5.60 x10 6/uL) 4.98 4.72 Hgb (12.5 - 16.9 g/dL) 15.8 15.0 Hct (37.5 - 50.7 %) 46.6 43.4 MCV (81.0 - 99.0 fL) 93.6 91.9 MCH (27.0 - 33.0 pg) 31.7 31.8 MCHC (33.0 - 37.0 g/dL) 33.9 34.6 RDW (11.5 - 14.5 %) 13.8 13.5 Plt Count (150 - 400 x10 3/uL) 193 156 MPV (7.0 - 9.0 fL) 10.2 H 9.9 H Neut % (Auto) (56.0 - 77.0 %) 53.2 L 61.8 Lymph % (Auto) (14.0 - 32.0 %) 29.9 21.6 [place] % (Auto) (4.8 - 9.0 %) 11.4 H 12.7 H Eos % (Auto) (0.3 - 3.7 %) 4.3 H 2.9 Baso % (Auto) (0.0 - 2.0 %) 0.6 0.5 Neut # (Auto) (2.0 - 7.6 x10 3/uL) 3.67 3.39 Lymph # (Auto) (1.0 - 3.8 x10 3/uL) 2.06 1.19 [place] # (Auto) (0.1 - 0.8 x10 3/uL) 0.79 0.70 Eos # (Auto) (0.0 - 0.2 x10 3/uL) 0.30 H 0.16 Baso # (Auto) (0.0 - 0.2 x10 3/uL) 0.04 0.03 Abs Immat Gran (auto) (0.00 - 0.03 x10 3/uL) 0. 04 H 0.03 Add Manual Diff NO NO Immature Gran % (0.0 - 2.0 %) 0.6 0.5 Nucleated RBC % (0 - 0 %) 0.0 0.0 Nucleated RBCs # (Man) (0.0 - 0.1 x10 3/uL) 0.0 0 0.00 Laboratory Tests 12/30 1230 Urines Urine Color (YEL/STRAW) STRAW Urine Appearance (CLEAR) CLEAR Urine pH (5.0 - 7.0) 8.0 H Ur Specific [place] (1.005 - 1.030) 1.002 L Urine Protein (NEGATIVE) NEGATIVE Urine Glucose (UA) (NEGATIVE) 3+ H Urine Ketones (NEGATIVE) NEGATIVE Urine Blood (NEGATIVE) NEGATIVE Urine Nitrite (NEGATIVE) NEGATIVE Urine Bilirubin (NEGATIVE) NEGATIVE Urine Urobilinogen (0.2 - 1.0 mg/dL) 0.2 Ur Leukocyte Esterase (NEGATIVE) NEGATIVE Urine RBC (0 - 3 RBC/HPF) NONE SEEN Urine WBC (0 - 3 WBC/HPF) 0-3 Ur Squamous Epith Cells (NONE SEEN /HPF) NONE S EEN Urine Bacteria (NONE SEEN /HPF) NONE SEEN Quality: Trauma Gen Surg Advanced Care Plan 65 or Older Discussed with: patient Diagnosis, Assessment Plan Hospital course to date: This is a 52-year-old gentle man with a past medical history of hypertension who initially presented to an outside hospital with complaints of back pain, and chest pains. He reports the back pain as mid upper back pain that occurred over the last couple of weeks. Usually pain is worse with gonzalez ging position The patient reports he start ed to develop chest pains located midsternal for the past 2 weeks. He denies any radiating symptoms. Describes the chest pains as a heaviness, squeez ing sensation. Denies any syncope, palpitations. Denies any nausea vomitin g or diaphoresis. Patient underwent left heart catheterization by Dr. Felton at [facility] this showed multi vessel CAD with a 90% LAD, 60-70% left main, 70-80% circumflex. An echocardiogram was also done at [facility] on 12/28/2022. This showed a normal left ventricular ejection fractio n of 55-60%, moderate LVH, mild mitral regurgitation, grade 1 diastolic dysfunction. The patient does admit to sm oking 1-2 times per week. Does admit to alcohol 1-2 times per week. Patient does have a strong famil y history of coronary artery disease in his father and his grandmother. Denies any surgical history, Review of the records from [facility] show the p micah was admitted with a troponin peak of 483. Hemoglobin A1c was noted t o be 5.5. Renal function appears normal. Patient was transferred to [facility] for [facility] bypass graft surgery. Hemoglobin A1c noted to be 5.[address] [facility] Assessment/plan 1.coronary artery disease Begin work-up for coronary artery bypass graft with appropriate studies. 2. Hypertension 3. Chest pains Patient has been seen and examined by Dr. Jose fatima. Work-up underway for coronary artery bypass graft surgery. Further recommendations to follow 12/31/22 Patient resting comfortable denies pain. AAOx3 Respiratory: 100% oxygen on room air. Cardiac: Remains sinus rhythm GI: Denies constipation diarrhea positive bowel movement. : Voiding well. 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 Likely consider coronary artery bypass surgery e preet next week. Patient was seen and examine d by Dr. Crabtree. Further recommendations to follow at 1100 at 1555 RPT #:[id number] END OF REPORT 2022-12-31 08:38:00-00:00 [facility] ([facility]) Cardiology Progress Note REPORT#:[id number] REPORT STATUS: Signed DATE:12/31/22 TIME: 837 PATIENT: SHEKHAR LOZADA UNIT #: [id number] [place] [facility] [place] 69 AGE: 52 SEX: M ATTEND: Sheila Crabtree MD ADM AUTHOR: Juanis Blevins CNP * ALL edits or amendments must be made on the [employer]/computer document * Subjective Patient reports: No: chest pain, shortness of breath. Objective General VS/I O: 24 hour I O ending at 0700: 12/31 0700 12/30 1900 Intake Total 440.00 Output Total Balance 440.00 Intake, IV 200.00 Intake, Oral 240 Number 1 Bowel Movements Number Voids 5 Patient 107.3 kg 100.6 kg Weight Weight Standing scale Standing scale Measurement Method Vital Signs: Date Time Temp Pulse Resp B/P B/P Pulse O2 O2 F low FiO2 Mean Ox Delivery Rate 12/31 0731 36.4 67 12 160/91 113.6 95 Room air 12/31 0539 36.6 77 17 159/90 0.0 94 Room air 12/31 0026 36.6 81 17 179/64 0.0 98 Room air 12/30 2048 18 12/30 1924 68 18 183/96 130 95 12/30 1919 94 Room air 12/30 1531 36.8 76 16 183/94 123.8 95 Room air 12/30 1400 77 14 171/83 116 95 12/30 1329 74 16 171/83 116 94 12/30 1117 36.7 69 12 197/103 134.3 96 Room air 12/30 1041 76 17 207/108 150 96 PATIENT WEIGHT: Weight (lb): 236 Weight (oz): 8.9 Weight (kg): 107.300 Medications: Active Meds + DC'd Last 24 Hrs Aspirin (ASPIRIN) 81 MG DAILY PO Atorvastatin Calcium (LIPITOR) 40 MG 2100 PO Carvedilol (COREG) 6.25 MG BID PO Mupirocin (BACTROBAN 2% 22 GM OINTMENT) 1 APPLIC BID NASAL Albuterol Sulfate (ALBUTEROL SULFATE) 2.5 MG RTO NCE ONE NEB (DC) Heparin Sodium (HEPARIN 5000 UNITS/ML) 0 ASDIR P RN IV Heparin Sodium (Porcine) (HEPARIN 25,000 UNITS/ 1/2NS 500ML) 500 ML ASDIR IV (CKD) Heparin Sodium (HEPARIN 5000 UNITS/ML) 4,000 UNI T ONCE STA IV (DC) Carvedilol (COREG) 6.25 MG ONCE ONE PO (DC) Hydralazine HCl (APRESOLINE) 10 MG Q6H PRN PRN IV Hydralazine HCl (APRESOLINE) 10 MG Q6H PRN PRN P O (DC) Acetaminophen (TYLENOL) 650 MG Q4H PRN PRN PO Amlodipine Besylate (NORVASC) 5 MG DAILY PO Hydrocodone Bitart/Acetaminophen (NORCO 5/325) 1 TAB Q6H PRN PRN PO Physical Exam General appearance: alert, awake, oriented Neck: non-tender, no bruit/NL carotids Cardiovascular: CV assessment: regular rate and rhythm Respiratory: wheezing (expiratory), no distress Abdomen: non-tender, obese Genitourinary: no flank pain, no urinary cathete r Lower extremity: LE assessment: no calf tenderness, no edema Musculoskeletal: normal inspection Neuro/ASBESTOS CLOTH INSPECTOR: alert, oriented X 3, normal speech Skin: dry, intact, normal color Psychiatry: normal affect, normal mood Results Findings/Data: Laboratory Tests 12/31 12/30 12/30 12/30 0540 1528 1528 1528 Chemistry Sodium (134 - 147 mEq/L) 137 143 Potassium (3.4 - 5.0 mEq/L) 4.0 3.9 Chloride (100 - 108 mEq/L) 103 103 Carbon Dioxide (21 - 33 mEq/l) 25 31 Anion Gap (0 - 20) 13 13 BUN (7 - 18 mg/dL) 8 10 Creatinine (0.6 - 1.3 mg/dL) 0.8 0.8 Glomerular Filtr Rate (90 - 95) 105.8 H 105.8 H Glucose (70 - 110 mg/dL) 153 H 240 H Hemoglobin A1c (4.8 - 6.0 %A1C) 5.5 Calcium (8.0 - 10.5 mg/dL) 9.3 9.1 Magnesium (1.80 - 2.40 mg/dL) 2.20 Total Bilirubin (0.0 - 1.0 mg/dL) 0.60 AST (15 - 37 IUnit/L) 35 ALT (30 - 65 IUnit/L) 47 Total Alk Phosphatase (20 - 125 IUnit/L) 89 B-Natriuretic Peptide (0 - 100 PG/ML) 81.0 Total Protein (6.4 - 8.2 g/dL) 6.5 Albumin (3.4 - 5.0 g/dL) 3.80 Triglycerides (40 - 150 mg/dL) 452 H Cholesterol (<200 mg/dL) 162 LDL Cholesterol Measurd (0 - 100 mg/dL) 76.0 HDL Cholesterol (32 - 72 mg/dL) 23.5 L Cholesterol/HDL Ratio (3.43 - 4.97 RATIO) 6.89 H Laboratory Tests 12/31 12/30 12/30 12/30 0540 2340 1528 1528 Coagulation INR (0.8 - 1.2) 1.1 PTT (So) (25.0 - 39.5 Seconds) 58.3 H 52.0 H 33.1 PT Patient/Control Mix (9.3 - 12.9 SECONDS) 11. 9 Laboratory Tests 12/31 12/30 0540 1528 Hematology WBC (4.5 - 11.0 x10 3/uL) 6.9 5.5 RBC (4.00 - 5.60 x10 6/uL) 4.98 4.72 Hgb (12.5 - 16.9 g/dL) 15.8 15.0 Hct (37.5 - 50.7 %) 46.6 43.4 MCV (81.0 - 99.0 fL) 93.6 91.9 MCH (27.0 - 33.0 pg) 31.7 31.8 MCHC (33.0 - 37.0 g/dL) 33.9 34.6 RDW (11.5 - 14.5 %) 13.8 13.5 Plt Count (150 - 400 x10 3/uL) 193 156 MPV (7.0 - 9.0 fL) 10.2 H 9.9 H Neut % (Auto) (56.0 - 77.0 %) 53.2 L 61.8 Lymph % (Auto) (14.0 - 32.0 %) 29.9 21.6 [place] % (Auto) (4.8 - 9.0 %) 11.4 H 12.7 H Eos % (Auto) (0.3 - 3.7 %) 4.3 H 2.9 Baso % (Auto) (0.0 - 2.0 %) 0.6 0.5 Neut # (Auto) (2.0 - 7.6 x10 3/uL) 3.67 3.39 Lymph # (Auto) (1.0 - 3.8 x10 3/uL) 2.06 1.19 [place] # (Auto) (0.1 - 0.8 x10 3/uL) 0.79 0.70 Eos # (Auto) (0.0 - 0.2 x10 3/uL) 0.30 H 0.16 Baso # (Auto) (0.0 - 0.2 x10 3/uL) 0.04 0.03 Abs Immat Gran (auto) (0.00 - 0.03 x10 3/uL) 0. 04 H 0.03 Add Manual Diff NO NO Immature Gran % (0.0 - 2.0 %) 0.6 0.5 Nucleated RBC % (0 - 0 %) 0.0 0.0 Nucleated RBCs # (Man) (0.0 - 0.1 x10 3/uL) 0.0 0 0.00 Laboratory Tests 12/30 1230 Urines Urine Color (YEL/STRAW) STRAW Urine Appearance (CLEAR) CLEAR Urine pH (5.0 - 7.0) 8.0 H Ur Specific [place] (1.005 - 1.030) 1.002 L Urine Protein (NEGATIVE) NEGATIVE Urine Glucose (UA) (NEGATIVE) 3+ H Urine Ketones (NEGATIVE) NEGATIVE Urine Blood (NEGATIVE) NEGATIVE Urine Nitrite (NEGATIVE) NEGATIVE Urine Bilirubin (NEGATIVE) NEGATIVE Urine Urobilinogen (0.2 - 1.0 mg/dL) 0.2 Ur Leukocyte Esterase (NEGATIVE) NEGATIVE Urine RBC (0 - 3 RBC/HPF) NONE SEEN Urine WBC (0 - 3 WBC/HPF) 0-3 Ur Squamous Epith Cells (NONE SEEN /HPF) NONE S EEN Urine Bacteria (NONE SEEN /HPF) NONE SEEN Laboratory Tests 12/31 12/30 0540 1528 Chemistry Magnesium (1.80 - 2.40 mg/dL) 2.20 B-Natriuretic Peptide (0 - 100 PG/ML) 81.0 Radiology data: Recent Impressions: CAT SCAN - CT CHEST W/O CONTRAST 12/30 0930 Report Impression - Status: SIGNED Entered: 12/30/2022 1039 IMPRESSION: 1. Mild emphysema. 2. A 0.8 cm right middle lobe pulmonary nodule.F or patients at low risk (minimal or absent history of smoking a nd of other known risk factors), recommend CT Chest at 6-12 months , then consider CT Chest at 18-24 months. For patients at high risk (history of smoking or of other known risk factors), recomme nd CT Chest at 6-12 months, then CT Chest at 18-24 months. (Referenc e: Gil) 3. Ectasia of the ascending thoracic aorta. 4. Severe coronary artery atherosclerosis. REFERENCES: Gil Haywood, et al. Guidelines for Management of Incidental Pulmonary Nodules Detected on CT Images: From e Fleischner Society 2017. Radiology. 2017;284(1):228-243. Impression By: [email or web address] - Janis Jeffries M.D. RADIOLOGY - XR CHEST 2 V 12/30 1002 Report Impression - Status: SIGNED Entered: 12/30/2022 1528 IMPRESSION: No radiographically identified acute findings in the chest. Impression By: [email or web address] - Francisca Lares M.D. ULTRASOUND - DUP VEIN ALEXY 12/30 1100 Report Impression - Status: SIGNED Entered: 12/30/2022 1205 IMPRESSION: 1. Greater saphenous veins are patent bilaterall y. 2. Bilateral lower extremity vein mapping as abo ve. Impression By: [email or web address] - Fernando Valdez M.D. ULTRASOUND - DUP EXTRACRANIAL ALEXY 12/30 1100 Report Impression - Status: SIGNED Entered: 12/30/2022 1158 IMPRESSION: No carotid arterial stenosis. REFERENCES: SRU CRITERIA. The degree of internal carotid art gema stenosis is based on criteria defined by the Society of Radi ologists in Ultrasound (SRU). Normal is no stenosis. Mild is less than 50% stenosis. Moderate is 50-69% stenosis. Severe is greater than 69% stenosis to near occlusion. Near occlusion is a markedly narrowed lumen. Total occlusion is no detectable patent l umen. Impression By: Isabella - Adolph Woods M.D . Results: labs reviewed, vital signs reviewed, [facility] personally rev'd Telemetry Interpretation: sinus rhythm Diagnosis, Assessment Plan Plan discussed with: patient, nurse Free Text DxA P Notes Free Text DxA P Notes: 52-year-old male wi medical history of hypertension, lifelong smoker, alcohol use who presents to ED at [facility] with back pain and chest pain. He was ruled in for non-STEMI. Taken to [facility] where he was found to have multivessel CAD with tight left main. Patient is transferred here for CABG evaluation. He is not having active chest pain. His main complaint is back pain and headache. His blood pressure is markedly elevated at the time of visit, 208/111 mmHg. 1. NSTEMI/multivessel CAD with left main disease CTS evaluation, CABG preoperative work-up ongoin g continue aspirin 81 mg daily , atorvastatin 40 mg daily, carvedilol 12.5 mg twice daily continue Heparin drip ACS protocol 2. Hypertensive urgency BP trend better but still suboptimal, BP trend 1 59-207/64-108 mmHg up carvedilol to 12.5 mg BID, continue amlodipin e 5 mg daily continue IV hydralazine 10 mg Q6H PRN for SBP > 170 mmHg Monitor blood pressure closely and adjust meds a s needed 3. Tobacco and alcohol use Counseled cessation CT chest showed mild emphysema and pulmonary nod ule Patient may need pulmonary consultation -defer t o CTS at 1011 Electronically Signed by Mert Mccall MD on at 1311 RPT #:[id number] END OF REPORT 2022-12-30 11:11:00-00:00 [facility] Cardiology Consultation REPORT#:[id number] REPORT STATUS: Signed DATE:12/30/22 TIME: 1111 PATIENT: SHEKHAR LOZADA UNIT #: [id number] ROOM/BED: 3349-1 : 69 AGE: 52 SEX: M ATTEND: Sheila Crabtree MD ADM AUTHOR: Juanis Blevins CNP * ALL edits or amendments must be made on the el [employer]/computer document * History of Present Illness HPI Requesting Clinician: Zabrina HERNANDEZ Reason for consult: CAD, CABG workup Chief complaint: Back pain PCP: PCP: Eric Crabtree MD HPI: 52-year-old male wi th medical history of hypertension, lifelong smoker, alcohol use who presents to ED at [facility] with back pain and chest pain. He was ruled in for non-STEMI. Taken to [facility] where he was found to have multivessel CAD with tight left main. Patient is transferred here for CABG evaluation. He is not having active chest pain. His main complaint is back pain and headache. His blood pressure is markedly elevated at the time of visit, 208/111 mmHg. History - Adult longitudinal Past medical history: Reports: Hypertension. Denies: Diabetes mellitus . 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 Ambulatory status: Independent Review of Systems Additional notes: As stated in HPI Objective General VS/I O: Vital Signs: Date Time Temp Pulse Resp B/P B/P Pulse O2 O2 F low FiO2 Mean Ox Delivery Rate 12/30 0739 36.3 71 12 178/90 0.0 93 Room air 12/30 0555 74 15 94 12/30 0540 74 14 93 12/30 0330 36.8 75 14 170/85 113 96 24 hour I O ending at 0700: 12/30 0700 12/29 1900 Intake Total 200 Output Total Balance 200 Intake, Oral 200 Number Voids 1 Patient 108 kg Weight Weight Stated/Reported Measurement Method PATIENT WEIGHT: Weight (lb): 238 Weight (oz): 1.59 Weight (kg): 108.000 Medications: Active Meds + DC'd Last 24 Hrs Hydralazine HCl (APRESOLINE) 10 MG Q6H PRN PRN P O Acetaminophen (TYLENOL) 650 MG Q4H PRN PRN PO Amlodipine Besylate (NORVASC) 5 MG DAILY PO Hydrocodone Bitart/Acetaminophen (NORCO 5/325) 1 TAB Q6H PRN PRN PO Hydrocodone Bitart/Acetaminophen (NORCO 5/325) 1 TAB ONCE ONE PO (DC) Physical Exam General appearance: obese, alert, awake Neck: non-tender, no bruit/NL carotids Cardiovascular: CV assessment: regular rate and rhythm Respiratory: shortness of breath, no distress Abdomen: non-tender, obese Genitourinary: no flank pain, no urinary cathete r Lower extremity: LE assessment: no calf tenderness, no edema Musculoskeletal: normal inspection Neuro/ASBESTOS CLOTH INSPECTOR: alert, oriented X 3, normal speech Skin: dry, intact, normal color Psychiatry: normal affect, normal mood Results Findings/Data: Laboratory Tests 12/30 1230 Urines Urine Color (YEL/STRAW) STRAW Urine Appearance (CLEAR) CLEAR Urine pH (5.0 - 7.0) 8.0 H Ur Specific [place] (1.005 - 1.030) 1.002 L Urine Protein (NEGATIVE) NEGATIVE Urine Glucose (UA) (NEGATIVE) 3+ H Urine Ketones (NEGATIVE) NEGATIVE Urine Blood (NEGATIVE) NEGATIVE Urine Nitrite (NEGATIVE) NEGATIVE Urine Bilirubin (NEGATIVE) NEGATIVE Urine Urobilinogen (0.2 - 1.0 mg/dL) 0.2 Ur Leukocyte Esterase (NEGATIVE) NEGATIVE Urine RBC (0 - 3 RBC/HPF) NONE SEEN Urine WBC (0 - 3 WBC/HPF) 0-3 Ur Squamous Epith Cells (NONE SEEN /HPF) NONE S EEN Urine Bacteria (NONE SEEN /HPF) NONE SEEN Radiology Data: Recent Impressions: CAT SCAN - CT CHEST W/O CONTRAST 12/30 0930 Report Impression - Status: SIGNED Entered: 12/30/2022 1039 IMPRESSION: 1. Mild emphysema. 2. A 0.8 cm right middle lobe pulmonary nodule.F or patients at low risk (minimal or absent history of smoking a nd of other known risk factors), recommend CT Chest at 6-12 months , then consider CT Chest at 18-24 months. For patients at high risk (history of smoking or of other known risk factors), recomme nd CT Chest at 6-12 months, then CT Chest at 18-24 months. (Referenc e: Gil) 3. Ectasia of the ascending thoracic aorta. 4. Severe coronary artery atherosclerosis. REFERENCES: Gil Haywood et al. Guidelines for Management of Incidental Pulmonary Nodules Detected on CT Images: From th e Fleischner Society 2017. Radiology. 2017;284(1):228-243. Impression By: Krystal - Janis Jeffries M.D. Results: labs reviewed, vital signs reviewed, EK G personally reviewed, rhythm personally rev'd Telemetry Interpretation: sinus rhythm Diagnosis, Assessment Plan Problem List/A P: 1. Non-STEMI (non-ST elevated myocardial infarc tion) 2. Coronary artery disease due to calcified cor onary lesion 3. Hypertension Plan discussed with: patient, collaborating MD, consultants (CTS) Free Text DxA P Notes Free Text DxA P Notes: 52-year-old male wi th medical history of hypertension, lifelong smoker, alcohol use who presents to ED at [facility] with back pain and chest pain. He was ruled in for non-STEMI. Taken to [facility] where he was found to have multivessel CAD with tight left main. Patient is transferred here for CABG evaluation. He is not having active chest pain. His main complaint is back pain and headache. His blood pressure is markedly elevated at the time of visit, 208/111 mmHg. 1. NSTEMI/multivessel CAD with left main disease CTS evaluation, CABG preoperative work-up ongoin g Start aspirin 80 mg daily, atorvastatin 40 mg da nicole, add carvedilol 6.25 mg twice daily for BP control Start heparin drip ACS protocol 2. Hypertensive urgency Start carvedilol 6.25 mg twice a day, first dose now Continue amlodipine 10 mg daily Add IV hydralazine 10 mg Q6H PRN for SBP > 170 m mHg Monitor blood pressure closely and adjust meds a s needed 3. Tobacco and alcohol use Counseled cessation CT chest showed mild emphysema and pulmonary nod ule Patient may need pulmonary consultation -defer t o CTS Appreciate the referral. at 1411 Electronically Signed by Mert Mccall MD on at 7998 RPT #:[id number] END OF REPORT 2022-12-30 09:33:00-00:00 [facility] History Physical - Adult REPORT#:[id number] REPORT STATUS: Signed DATE:12/30/22 TIME: 932 PATIENT: SHEKHAR LOZADA UNIT #: [id number] ROOM/BED: 3349-1 : 69 AGE: 52 SEX: M ATTEND: Sheila Crabtree MD ADM AUTHOR: Zabrina Ruiz * ALL edits or amendments must be made on the [employer]/computer document * Zabrina Ruiz 12/30/22 0933: History of Present Illness HPI Chief complaint: CAD, Chest pains. HPI: This is a 52-year-old gentle man with a past medical history of hypertension who initially presented to an outside hospital with complaints of back pain, and chest pains. He reports the back pain as mid upper back pain that occurred over the last couple of weeks. Usually pain is worse with gonzalez ging position The patient reports he start ed to develop chest pains located midsternal for the past 2 weeks. He denies any radiating symptoms. Describes the chest pains as a heaviness, squeez ing sensation. Denies any syncope, palpitations. Denies any nausea vomitin g or diaphoresis. Patient underwent left heart catheterization by Dr. Felton at [facility] this showed multi vessel CAD with a 90% LAD, 60-70% left main, 70-80% circumflex. An echocardiogram was also done at [facility] on 12/28/2022. This showed a normal left ventricular ejection fractio n of 55-60%, moderate LVH, mild mitral regurgitation, grade 1 diastolic dysfunction. The patient does admit to sm oking 1-2 times per week. Does admit to alcohol 1-2 times per week. Patient does have a strong famil y history of coronary artery disease in his father and his grandmother. Denies any surgical history, Review of the records from [facility] show the p atgeronimo was admitted with a troponin peak of 483. Hemoglobin A1c was noted t o be 5.5. Renal function appears normal. Patient was transferred [facility]. History Additional medical history: Hypertension Additional surgical history: Unremarkable Additional family history: Coronary artery disease in his father, g randmother with coronary artery bypass Smoking status for patients 13 years old or olde r: Current some day smoker Date last smoked: 12/14/22 Packs per day: 8 Pack years: 0 Medication/Allergy-Vaccine Hx Allergies: Coded Allergies: No Known Allergies (12/30/22) Review of Systems Constitutional: Denies: fatigue, fever, generalized weakness. Skin: Denies: rash, swelling. Allergy/Immun: Denies: rhinorrhea, sneezing. Eyes: Denies: discharge, diplopia, photophobia. ENT: Denies: ear drainage, ear ringing. Respiratory: Denies: productive cough (sputum), SOB. Cardiovascular: Reports: chest pain. Denies: KISER (dyspnea on exe rtion). GI: Denies: constipation, diarrhea. : Denies: dysuria, hematuria. Heme: Denies: bleeding, bruising. Endocrine: Denies: polydipsia, polyuria. Neuro: Denies: confusion, dizziness. Psych: Denies: anxiety, depression. All systems rev neg: except as marked Physical Exam VS/I O Vital Signs: Date Time Temp Pulse Resp B/P B/P Pulse O2 O2 F low FiO2 Mean Ox Delivery Rate 12/30 0739 97.3 71 12 178/90 0.0 93 Room air 12/30 0555 74 15 94 12/30 0540 74 14 93 12/30 0330 98.2 75 14 170/85 113 96 24 hour I O ending at 0700: 12/30 0700 12/29 1900 Intake Total 200 Output Total Balance 200 Intake, Oral 200 Number Voids 1 Patient 108 kg Weight Weight Stated/Reported Measurement Method PATIENT WEIGHT: Weight (lb): 238 Weight (oz): 1.59 Weight (kg): 108.000 General appearance: alert, awake Head/Eyes: atraumatic, clear cornea Cardiovascular: normal capillary refill, regular rate rhythm Respiratory: clear to auscultation, no distress Abdomen/GI: active bowel sounds, soft Extremities: moves all, no edema-all extremities Musculoskeletal: full range of motion, normal in spection Neuro/ASBESTOS CLOTH INSPECTOR: alert, oriented X 3 Skin: dry Diagnosis, Assessment Plan Free Text DxA P Notes Free Text DxA P Notes: This is a 52-year-old gentle man with a past medical history of hypertension who initially presented to an outside hospital with complaints of back pain, and chest pains. He reports the back pain as mid upper back pain that occurred over the last couple of weeks. Usually pain is worse with gonzalez ging position The patient reports he start ed to develop chest pains located midsternal for the past 2 weeks. He denies any radiating symptoms. Describes the chest pains as a heaviness, squeez ing sensation. Denies any syncope, palpitations. Denies any nausea vomitin g or diaphoresis. Patient underwent left heart catheterization by Dr. Felton at [facility] this showed multi vessel CAD with a 90% LAD, 60-70% left main, 70-80% circumflex. An echocardiogram was also done at [facility] on 12/28/2022. This showed a normal left ventricular ejection fractio n of 55-60%, moderate LVH, mild mitral regurgitation, grade 1 diastolic dysfunction. The patient does admit to sm oking 1-2 times per week. Does admit to alcohol 1-2 times per week. Patient does have a strong famil y history of coronary artery disease in his father and his grandmother. Denies any surgical history, Review of the records from [facility] show the p atgeronimo was admitted with a troponin peak of 483. Hemoglobin A1c was noted t o be 5.5. Renal function appears normal. Patient was transferred to [facility] for coronary bypass graft surgery. Hemoglobin A1c noted to be 5.[address] [facility] Assessment/plan 1.coronary artery disease Begin work-up for coronary artery bypass graft with appropriate studies. 2. Hypertension 3. Chest pains Patient has been seen and examined by Dr. Jose fatima. Work-up underway for coronary artery bypass graft surgery. Further recommendations to follow Eric Crabtree 12/31/22 0951: Attestations Physician Attestation Agree w/findings plan: I have seen and examined Mr. Lozada. I agree with the findings and plan as documented by MARY Erickson. Briefly, 52-year-old gentleman with tiffany re coronary artery disease transferred to [facility] for surgica l evaluation. I had a long discussion with the patient, explained to them a ngiogram finding and need for coronary artery bypass graft surgery. I have discussed with him the procedure, risk involved, benefit, alternatives, STS risk s core, and complications. Patient verbalized understanding the risk. Electronically Signed by Zabrina Ruiz on 0 12/30/22 at 0941 at 0952 RPT #:[id number] END OF REPORT"
--- NOTE | 2023-04-19 20:07 | RAD REPORT ---
EXAM DESCRIPTION: [facility]04/19/2023 7:40 pm CLINICAL HISTORY: Right leg pain and swelling. COMPARISON: None. FINDINGS: Right common femoral, superficial femoral, greater saphenous, popliteal and right posterio r tibial veins are compressible and demonstrate augmentation. Doppler demonstrates good flow. Grayscale, color and spectral analysis performed on all vessels IMPRESSION: No evidence of deep venous thrombosis involving the right lower extremity.
[2023-04-19 20:20] LABS: Protime INR 1.02
[2023-04-19 20:31] LABS: Absolute Lymphocytes (CBC) 1.4 K/uL (0.7-4.9); Hematocrit 44.6 % (39.6-49.0); Lymphocytes % 20.5 % (15.3-44.8); MCV 90.5 fL (80-100); MPV 8.4 fL (7.6-11.3); RBC Red Blood Cell Count 4.92 M/uL (4.33-5.43)
[2023-04-19 21:09] LABS: Potassium 3.8 mEq/L (3.5-5.1)
[2023-04-19 21:10] LABS: Troponin High Sensitivity 65.1 pg/mL (<58.9)
--- NOTE | 2023-04-19 21:39 | RAD REPORT ---
EXAM DESCRIPTION: [facility] Single View04/19/2023 7:35 pm CLINICAL HISTORY: Chest pain COMPARISON: December 2022 FINDINGS: The lungs appear clear of acute infiltrate. The heart is mildly enlarged Postsurgical changes involve the chest. IMPRESSION: No acute abnormalities displayed
--- NOTE | 2023-04-19 21:46 | RAD REPORT ---
EXAM DESCRIPTION: CT - Chest For Pe Angio - 04/19/2023 9:28 pm CLINICAL HISTORY: Chest pain COMPARISON: None. TECHNIQUE: Dynamically enhanced axial 3 mm thick images of the chest were obtained during administra tion of 100 mL Isovue 370 IV contrast. Coronal and oblique reconstruction images were generated and r eviewed. Exam utilizes a protocol for optimal evaluation of pulmonary arterial tree. Maximum intensity projections 3D imaging was utilized All CT scans are performed using dose optimization technique as appropriate and may include automated exposure control or mA/KV adjustment according to patient size. FINDINGS: The opacification of pulmonary arteries is suboptimal. No gross thrombus seen within the main pulmonary, right or left main pulmonary arteries. Evaluation o f the more distal pulmonary arteries is nondiagnostic. A thoracic aortic aneurysm is not noted. A pleural effusion is not seen. A pericardial effusion is not seen. A lung consolidation is not present. Mild chronic appearing left lung opacities. IMPRESSION: No gross central pulmonary embolus seen. Evaluation of the more distal pulmonary arteries is nondiagnostic
[2023-04-19] MEDS ORDERED: FUROSEMIDE 20 MG/ 2ML VIAL ONE (22:17)
[2023-04-19] MEDS ORDERED: ONDANSETRON 4 MG/2 ML VIAL ONE (22:18)
[2023-04-19] MEDS ORDERED: MORPHINE 4 MG/ML SYR ONE (22:18)
[2023-04-19] MEDS ORDERED: ENOXAPARIN 100 MG/ML SYR SQ ONE (22:18)
--- NOTE | 2023-04-19 22:41 | ER ---
Nurse's Notes [facility] Name: Zay Werner Jr Age: 52 yrs Sex: Male : 1970 Arrival Date: 04/19/2023 Time: 18:57 Bed 6 Private MD: Diagnosis: NSTEMI, coronary artery disease. Presentation: 04/19 19:20 Chief complaint: Patient states: center chest pain X1 week with right sided leg pain. lg3 Coronavirus screen: Client denies travel out of the [place] in the last 14 days. At this time, the client does not indicate any symptoms associated with coronavirus-19. Ebola Screen: No symptoms or risks identified at this time. Initial Sepsis Screen: Does the patient meet any 2 criteria? No. Patient's initial sepsis screen is negative. Does the patient have a suspected source of infection? No. Patient's initial sepsis screen is negative. Risk Assessment: Do you want to hurt yourself or someone else? Patient reports no desire to harm self or others. Onset of symptoms is unknown. 19:20 Method Of Arrival: Ambulatory lg3 19:20 Acuity: UMBERTO 3 lg3 Triage Assessment: 19:22 General: Appears in no apparent distress. uncomfortable, Behavior is calm, cooperative. lg3 Pain: Complains of pain in right leg. EENT: No deficits noted. No signs and/or symptoms were reported regarding the EENT system. Neuro: No deficits noted. Ta Agitation-Sedation Scale (RASS): 0 - Alert and Calm Level of Consciousness is awake, alert, obeys commands, Oriented to person, place, time, situation. Cardiovascular: Reports chest pain, diaphoresis. Respiratory: No deficits noted. Airway is patent Respiratory effort is even, unlabored, Respiratory pattern is regular, symmetrical. GI: No deficits noted. No signs and/or symptoms were reported involving the gastrointestinal system. Patient currently denies abdominal pain. : No deficits noted. No signs and/or symptoms were reported regarding the genitourinary system. Derm: No deficits noted. Skin is intact, is healthy with good turgor, Skin is dry, Skin is normal, Skin temperature is warm. Musculoskeletal: No deficits noted. No signs and/or symptoms reported regarding the musculoskeletal system. Historical: - Allergies: 19:22 No Known Allergies; lg3 - PMHx: 19:22 Hypertension; lg3 - PSHx: 19:22 bipass; lg3 - Immunization history:: Adult Immunizations up to date. - Social history:: Smoking status: Patient denies any tobacco usage or history of. Patient/guardian denies using alcohol, street drugs. - Family history:: not pertinent. - Hospitalizations: : No recent hospitalization is reported. Screenin:17 [facility] ED Fall Risk Assessment (Adult) History of falling in the last 3 months, nj1 including since admission No falls in past 3 months (0 pts) Confusion or Disorientation No (0 pts) Intoxicated or Sedated No (0 pts) Impaired Gait No (0 pts) Mobility Assist Device Used No (0 pt) Altered Elimination No (0 pt) Score/Fall Risk Level 0 - 2 = Low Risk Oriented to surroundings, Maintained a safe environment, Hourly rounding (assess needs \T\ fall precautionary measures) done. Abuse screen: Denies threats or abuse. Denies injuries from another. Nutritional screening: No deficits noted. Tuberculosis screening: No symptoms or risk factors identified. Assessment: 20:00 General: Appears in no apparent distress. comfortable, Behavior is calm, cooperative, nj1 appropriate for age. 20:00 Pain: Denies pain. Neuro: Level of Consciousness is awake, alert, obeys commands, nj1 Oriented to person, place, time, situation. Cardiovascular: Patient's skin is warm and dry. Chest pain quality is sharp, began , on/off. 20:00 Pain: Pain began . nj1 22:25 Reassessment: Patient appears in no apparent distress at this time. No changes from lg3 previously documented assessment. Patient and/or family updated on plan of care and expected duration. Pain level reassessed. Patient is alert, oriented x 3, equal unlabored respirations, skin warm/dry/pink. Patient denies pain at this time. Vital Signs: 19:20 BP 202 / 117; Pulse 70; Resp 19 S; Pulse Ox 100% on R/A; Weight 108.86 kg (R); Height 5 lg3 ft. 5 in. (R); 20:00 BP 166 / 107; Pulse 72; Resp 18; Pulse Ox 97% on R/A; Pain 0/10; nj1 20:50 BP 162 / 98; Pulse 74; Resp 16; Pulse Ox 98% ; Pain 0/10; nj1 22:19 BP 173 / 102; Pulse 68; Resp 14; Pulse Ox 100% on R/A; rv 19:20 Body Mass Index 39.94 (108.86 kg, 165.1 cm) lg3 20:00 Pain Scale: Adult nj1 20:50 Pain Scale: Adult nj1 ED Course: 19:01 Patient arrived in ED. ja2 19:11 Wilton Donaldson MD is Attending Physician. rn 19:22 Triage completed. lg3 19:22 Arm band placed on right wrist. lg3 19:34 EKG done, by health records technology teacher. reviewed by Wilton Donaldson MD. oe 19:37 XRAY Chest (1 view) In Process Unspecified. EDMS 19:39 Radiology exam delayed due to lab results not completed at this time. (BUN/Creatinine) jg10 IV insertion attempt and/or patient not having appropriate IV at this time. 19:42 Extremity Venous Uni Ltd US In Process Unspecified. EDMS 19:55 Amy Morin, RN is Primary Nurse. nj1 20:00 Client placed on continuous cardiac and pulse oximetry monitoring. NIBP monitoring nj1 applied. 20:00 Patient has correct armband on for positive identification. Bed in low position. Call nj1 light in reach. 20:00 Inserted saline lock: 20 gauge in right antecubital area, using aseptic technique. nj1 Blood collected. 20:00 Patient maintains SpO2 saturation greater than 95% on room air. nj1 21:15 Attending Physician role handed off by Wilton Donaldson MD sp4 21:15 Kishore Koroma MD is Attending Physician. sp4 21:30 CT Chest For PE Angio In Process Unspecified. EDMS 22:17 Initiated transfer with He Johnson at [facility]. rv1 22:23 Accepted to [facility] ER by Dr. Powers. rv1 22:51 SARS RAPID Sent. oe 22:53 Troponin High Sensitivity Sent. lg3 23:50 No provider procedures requiring assistance completed. Patient transferred, IV remains lg3 in place. intact, No redness/swelling at site. Administered Medications: 22:16 Drug: Ondansetron IVP 4 mg Route: IVP; Site: right antecubital; lg3 22:17 Drug: Enoxaparin Sub-Q 100 mg Route: Sub-Q; Site: abdomen; lg3 22:17 Drug: morphine IVP or IV 4 mg Route: IVP; Infused Over: 4 mins; Site: right antecubital;lg3 22:17 Drug: Furosemide IVP 20 mg Route: IVP; Site: right antecubital; lg3 22:46 Drug: Metoprolol PO 25 mg Route: PO; rv Medication: 23:50 VIS not applicable for this client. lg3 Outcome: 22:41 ER care complete, transfer ordered by . sp4 23:50 Transferred by ground EMS to other acute care facility: [facility]. kb3 23:50 Condition: stable 23:50 Instructed on the need for transfer, Demonstrated understanding of instructions. 23:50 Patient left the ED. lg3 Signatures: Dispatcher [employer] EDMS Wilton Donaldson MD MD rn Espinosa, Orlando oe Vicente, Ronaldo, RN RN rv Marlin Gutierrez RN RN lg3 Opal Marrero Kelly RN RN kb3 [facility] Anali Fair rv1 Kishore Koroma MD MD sp4 Amy Morin RN RN nj1 Corrections: (The following items were deleted from the chart) 04/20 09:49 07 23:50 Transferred by ground EMS to [facility], [facility], lg3 kb3
--- NOTE | 2023-04-19 22:41 | EDPHYS ---
Physician Documentation [facility] Name: Zay Werner Jr Age: 52 yrs Sex: Male : 1970 Arrival Date: 04/19/2023 Time: 18:57 Bed 6 Private MD: ED Physician Kishore Koroma HPI: 04/19 19:30 This 52 yrs old Male presents to ER via Ambulatory with complaints of Chest rn Pain. 19:30 The patient or guardian reports chest pain that is located primarily in the substernal rn area. Onset: 1 week(s) ago. The pain does not radiate. Associated signs and symptoms: Pertinent negatives: abdominal pain, cough, palpitations, shortness of breath, syncope. The chest pain is described as sharp, stabbing. Duration: The patient or guardian reports multiple episodes, that are intermittent, the episodes last approximately 2 second(s). Modifying factors: The symptoms are alleviated by nothing. the symptoms are aggravated by nothing. Severity of pain: At its worst the pain was moderate in the emergency department the pain has improved. The patient has not experienced similar symptoms in the past. Reports sharp/needle chest pains over last week, intermittent, last only a couple of seconds, no trauma, no sob, no cough, no fever. No abd pain. Had cardiac bypass 5 months ago at [facility]. . Historical: - Allergies: 19:22 No Known Allergies; lg3 - PMHx: 19:22 Hypertension; lg3 - PSHx: 19:22 bipass; lg3 - Immunization history:: Adult Immunizations up to date. - Social history:: Smoking status: Patient denies any tobacco usage or history of. Patient/guardian denies using alcohol, street drugs. - Family history:: not pertinent. - Hospitalizations: : No recent hospitalization is reported. ROS: 19:30 Constitutional: Negative for fever, chills, and weight loss, Neck: Negative for injury, rn pain, and swelling, Cardiovascular: Negative for palpitations, and edema, Respiratory: Negative for shortness of breath, cough, wheezing, and pleuritic chest pain, Abdomen/GI: Negative for abdominal pain, nausea, vomiting, diarrhea, and constipation, MS/Extremity: Negative for injury and deformity, Skin: Negative for injury, rash, and discoloration, Neuro: Negative for headache, weakness, numbness, tingling, and seizure. Exam: 19:30 Constitutional: This is a well developed, well nourished patient who is awake, alert, rn and in no acute distress. Ambulatory to triage without difficulty or requiring assistance. Cardiovascular: Regular rate and rhythm. No pulse deficits. Respiratory: No increased work of breathing, no retractions or nasal flaring. Abdomen/GI: Soft, non-tender Skin: Warm, dry MS/ Extremity: Pulses equal, no cyanosis. RLE with mild edema and increased circumference compared to LLE. Neuro: Awake and alert, GCS 15 19:42 ECG was reviewed by the Attending Physician. rn Vital Signs: 19:20 BP 202 / 117; Pulse 70; Resp 19 S; Pulse Ox 100% on R/A; Weight 108.86 kg (R); Height 5 lg3 ft. 5 in. (R); 20:00 BP 166 / 107; Pulse 72; Resp 18; Pulse Ox 97% on R/A; Pain 0/10; nj1 20:50 BP 162 / 98; Pulse 74; Resp 16; Pulse Ox 98% ; Pain 0/10; nj1 22:19 BP 173 / 102; Pulse 68; Resp 14; Pulse Ox 100% on R/A; rv 19:20 Body Mass Index 39.94 (108.86 kg, 165.1 cm) lg3 20:00 Pain Scale: Adult nj1 20:50 Pain Scale: Adult nj1 MDM: 19:11 Patient medically screened. rn 20:46 Transition of care: After a detail discussion of the patient's case, care is rn transferred to Kishore Koroma MD. 22:33 Differential diagnosis: abnormal EKG, acute myocardial infarction, acute pericarditis, sp4 anxiety, coronary artery disease chest wall pain, congestive heart failure costochondritis. HEART Score: History: Moderately Suspicious (1), ECG: Non specific repolarization disturbance / LBTB / PM (1), Age: > 45 and < 65 years (1), Risk Factors: > or = 3 Risk factors for atherosclerotic disease (2), Troponin: > 1 and < 3 x normal limit (1), Total Score = 5. The patient was not given aspirin in the Emergency Department. Patient reports taking aspirin within the past 24 hours. Data reviewed: vital signs, nurses notes, old medical records, lab test result(s), cardiac enzymes, CBC, electrolytes, hepatic panel, EKG, radiologic studies, CT scan, ultrasound. 22:36 ED course: Patient care was assumed from Dr. Donaldson at 9 PM. Patient reports sharp sp4 generalized to midsternal chest pains that are exertional. Pain is a not very typical however patient's troponin is mildly elevated at 65. No acute abnormalities on the chest x-ray, CT angiography revealed no gross central pulmonary embolus, evaluation of the more distal pulmonary arteries is nondiagnostic. Right lower extremity evaluated with Doppler ultrasound and it has revealed no evidence of DVT involving the right lower extremity. Patient at this time has signs of NSTEMI, he warrants for transfer for potential PCI left heart cath. We will attempt transfer to [facility]. Here in ER patient was administered morphine, metoprolol, Lovenox, patient already takes aspirin and Plavix thus further anticoagulation not indicated at this time.. 22:36 ED course: Patient's home medications include furosemide 20 mg daily, amiodarone 200 mg sp4 twice a day, aspirin 81 mg daily, atorvastatin 40 mg daily, clopidogrel 75 mg daily, metoprolol succinate 50 mg daily. . 23:34 ED course: Repeat troponin is elevated at 69. sp4 04/19 19:12 Order name: Basic Metabolic Panel; Complete Time: 21:15 rn 04/19 19:12 Order name: CBC with Diff; Complete Time: 20:35 rn 04/19 19:12 Order name: PT-INR; Complete Time: 20:24 rn 04/19 19:12 Order name: Troponin HS; Complete Time: 21:15 rn 04/19 22:34 Order name: SARS RAPID; Complete Time: 23:34 sp4 04/19 22:50 Order name: Troponin High Sensitivity; Complete Time: 23:34 lg3 04/19 19:12 Order name: XRAY Chest (1 view); Complete Time: 21:56 rn 04/19 19:28 Order name: CT Chest For PE Angio; Complete Time: 21:56 rn 04/19 19:28 Order name: Extremity Venous Uni Ltd US; Complete Time: 20:10 rn 04/19 19:12 Order name: EKG; Complete Time: 19:13 rn 04/19 19:12 Order name: Cardiac monitoring; Complete Time: 20:10 rn 04/19 19:12 Order name: EKG - Nurse/Tech; Complete Time: 20:10 rn 04/19 19:12 Order name: IV Saline Lock; Complete Time: 20:10 rn 04/19 19:12 Order name: Labs collected and sent; Complete Time: 20:10 rn 04/19 19:12 Order name: O2 Per Protocol; Complete Time: 20:10 rn 04/19 19:12 Order name: O2 Sat Monitoring; Complete Time: 20:10 rn EC:42 Rate is 67 beats/min. Rhythm is regular. Left axis deviation noted. QRS is positive in rn lead I and negative in lead aVF. [place] interval is normal. QRS interval is prolonged at 150 msec. QT interval is normal. No Q waves. T waves are Normal. No ST changes noted. Clinical impression: NSR w/ Non-specific ST/T Changes. Interpreted by me. Reviewed by me. Administered Medications: 22:16 Drug: Ondansetron IVP 4 mg Route: IVP; Site: right antecubital; lg3 22:17 Drug: Enoxaparin Sub-Q 100 mg Route: Sub-Q; Site: abdomen; lg3 22:17 Drug: morphine IVP or IV 4 mg Route: IVP; Infused Over: 4 mins; Site: right antecubital;lg3 22:17 Drug: Furosemide IVP 20 mg Route: IVP; Site: right antecubital; lg3 22:46 Drug: Metoprolol PO 25 mg Route: PO; rv Disposition Summary: 04/19/23 22:41 Transfer Ordered Transfer Location: Other Acute Care Facility sp4 Reason: Higher level of care sp4 Condition: Stable sp4 Problem: new sp4 Symptoms: have improved sp4 Accepting Physician: ER attending at [facility](04/19/23 23:50) lg3 Diagnosis - NSTEMI, coronary artery disease. sp4 Discharge Instructions: - Discharge Summary Sheet rv1 Forms: - SBAR form rv1 - Medication Reconciliation Form sp4 Signatures: Dispatcher [employer] Wilton Cornejo MD MD rn Vicente, Ronaldo, RN RN rv Gibson, Lacie, RN RN lg3 Kishore Koroma MD MD sp4 Corrections: (The following items were deleted from the chart) 23:50 22:41 ER attending at [facility] sp4 lg3
[2023-04-19] MEDS ORDERED: METOPROLOL TAR 25 MG TAB ONE (22:46)
[2023-04-19 23:04] LABS: SARS-CoV-2 Antigen Rapid Res Negative (Negative)
[2023-04-20 00:38] VITALS: BP 173/102; O2SAT 100
--- NOTE | 2023-04-20 12:14 | EKG ---
Test Date: 2023-04-19 Test Time: 19:13:49 Dulser: MATEUSZ MEASUREMENT RESULTS: Intervals: Rate: 67 GA: 170 QRSD: 150 QT: 444 QTc: 469 [place]: P: 66 GA: 170 QRS: -50 T: 90 INTERPRETIVE STATEMENTS: Normal sinus rhythm Right bundle branch block Left anterior fascicular block Bifascicular block Abnormal ECG Compared to ECG 12/28/2022 14:02:59 Left anterior fascicular block now present Bifascicular block now present Left-axis deviation no longer present Myocardial infarct finding no longer present T-wave abnormality no longer present Possible ischemia no longer present Electronically Signed On 04-20-23 12:12:54 CDT by Geraldo Felton
== END 2023-04-19 23:50 ==
LOC: ER 18:57
DX: I21.4 Non-ST elevation (NSTEMI) myocardial infarction (principal); I25.10 Atherosclerotic heart disease of native coronary artery without angina pectoris; I10 Essential (primary) hypertension; Z20.822 Contact with and (suspected) exposure to COVID-19
CPT/HCPCS: 93005; 85025; 80048; 36415; 85610; 84484 ×2; 71275; 71045; 93971; 96375; 96372; 96374; 99285; 87811; Q9967; J1650; J1940; J2405

== ENCOUNTER 2024-04-02 22:58 | Emergency (ER) | payer OTHER ==
--- OUTSIDE RECORDS SUMMARY | 2024-04-02 23:05 | XMS REPORT | Continuity of Care Document ---
Author Name Unknown Address [address] [facility] [address] [place] [address] [facility] Address [address] [facility] [address] [place] [address] Care Team Providers Care Coffee Brewer Name Role Phone Pcp, Patient Does Not Have A Primary Care Physic maryse Rinku LIN, Sendmt K.[facility]. Attending Clinician [phone] BALTA AYALA Attending Clinician UnavailBerny Jay DO Attending Clinician [phone] Balta Ayala MD Attending Clinician [phone] Jessi Chavez Attending Clinician Unavailable Eric Crabtree Attending Clinician Wellington Day Attending Clinician [phone] WELLINGTON CHAVEZ Attending Clinician Unavailable BALTA AYALA Admitting Clinician Balta Ríos MD Admitting Clinician [phone] Jessi Chavez Admitting Clinician Unavailable Eric Crabtree Admitting Clinician WELLINGTON Luke Admitting Clinician Unavailable Payers Payer Name Policy Type Policy Number Effective Date Expirati on Date Source Problems Condition Name Condition Details Condition Category Status Onset Date Resolution Date Last Treatment Date Treating Clinician Comments Source Morbid obesity with body mass index of 40.0-49.9 Morbid obesity with body mass index of 40.0-49.9 Disease Active 06-29 00:00: 00 [facility] 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 Disease Active 06-29 00:00: 00 [facility] Uncontroll ed hypertensi on Uncontroll ed hypertensi on Disease Active 06-29 00:00: 00 [facility] Dyslipidem ia Dyslipidem ia Disease Active 06-29 00:00: 00 [facility] KISER (dyspnea on exertion) KISER (dyspnea on exertion) Disease Active 06-29 00:00: 00 [facility] Elevated brain natriureti c peptide (BNP) level Elevated brain natriureti c peptide (BNP) level Disease Active 06-29 00:00: 00 [facility] PAF (paroxysma l atrial fibrillati on) PAF (paroxysma l atrial fibrillati on) Disease Active 06-29 00:00: 00 [facility] Elevated troponin I level Elevated troponin I level Disease Active 06-29 00:00: 00 [facility] Chest pain due to myocardial ischemia, unspecifie d ischemic chest pain type Chest pain due to myocardial ischemia, unspecifie d ischemic chest pain type Disease Active 06-28 00:00: 00 [facility] Allergies, Adverse Reactions, Alerts Allergy Name Allergy Type Status Severity Reaction(s) Onset Date Inactive Date Treating Clinician Comments Source No Known Allergie s DA Active U 3-17 00:00: 00 [facility] NO KNOWN ALLERGIE S Drug Class Active [facility] Social History Social Habit Start Date Stop Date Quantity Comments Source History of tobacco use Cigarette Smoker [facility] Gender identity [facility] Sexual orientation [facility] Tobacco use and exposure 2023-06-29 00:00:00 2023-06-29 00:00:00 Smokeless tobacco non-user [facility] History of Social function 2023-06-29 00:00:00 2023-06-29 00:00:00 [facility] Sex Assigned At 1970 00:00:00 1970 00:00:00 [facility] Smoking Status Start Date Stop Date Source Unknown if ever smoked [facility] Ex-smoker 2023-06-29 00:00:00 2023-06-29 00:00:00 [facility] Medications Ordered Medication Name Filled Medication Name Start Date Stop Date Current Medication? Ordering Clinician Indication Dosage Frequency Signature (SIG) Comments Components Source aspirin 81 mg chewable tablet 06-30 16:40: 46 Yes 81mg Take 1 tablet by mouth in the morning. [facility] atorvastati n 40 mg tablet 06-30 16:40: 46 Yes 40mg Take 1 tablet by mouth at bedtime. [facility] clopidogreL 75 mg tablet 06-30 16:40: 46 Yes 75mg Take 1 tablet by mouth in the morning. [facility] ferrous sulfate (FEOSOL) 325 mg (65 mg iron) tablet 06-30 16:40: 46 Yes 325mg Take 1 tablet by mouth in the morning. [facility] furosemide 20 mg tablet 06-30 16:40: 46 Yes 20mg Take 1 tablet by mouth in the morning. [facility] HYDROcodone -acetaminop hen 5-325 mg tablet 06-30 16:40: 46 Yes 1{tbl} Take 1 tablet by mouth every 6 (six) hours as needed. [facility] losartan 50 mg tablet 06-30 15:42: 56 06-30 00:00 :00 No 50mg Take 1 tablet by mouth in the morning. [facility] amiodarone 200 mg tablet 06-30 15:42: 56 06-30 00:00 :00 No 200mg Take 1 tablet by mouth in the morning and 1 tablet in the evening. [facility] metoprolol tartrate 25 mg tablet 06-30 15:42: 56 06-30 00:00 :00 No 25mg Take 1 tablet by mouth every 12 (twelve) hours. [facility] amiodarone (PACERONE) tablet 200 mg 06-30 14:00: 00 Yes 200mg 200 mg, Oral, DAILY, First dose (after last modificati on) on Mon06/30/23 at 0900, Until Discontinu ed, Routine [facility] losartan (COZAAR) tablet 50 mg 06-30 13:15: 00 Yes 50mg 50 mg, Oral, BID, First dose (after last modificati on) on Mon06/30/23 at 0815, Until Discontinu ed, Routine [facility] amLODIPine (NORVASC) tablet 10 mg 06-30 01:00: 00 Yes 10mg 10 mg, Oral, DAILY, First dose on Mon06/29/23 at 2000, Until Discontinu ed, Routine [facility] amiodarone 200 mg tablet 06-30 00:00: 00 Yes [id number] 200mg Take 1 tablet by mouth in the morning. [facility] metoprolol tartrate 50 mg tablet 06-30 00:00: 00 07-31 04:59 :00 No [id number] 50mg Take 1 tablet by mouth every 12 (twelve) hours for 30 days. [facility] losartan 50 mg tablet 06-30 00:00: 00 07-31 04:59 :00 No [id number] 50mg Take 1 tablet by mouth in the morning and 1 tablet in the evening. Do all this for 30 days. [facility] atorvastati n (LIPITOR) tablet 40 mg 06-29 22:00: 00 Yes 40mg 40 mg, Oral, QPM, First dose on Mon06/29/23 at 1700, Until Discontinu ed, [facility] ular 06-29 21:30: 00 Yes Subcutaneo us, AC+HS, First dose on Mon06/29/23 at 1630, Until Discontinu ed, Routine [facility] lidocaine (LIDODERM) 5 % (700 mg/patch) patch 1 Patch 06-29 17:01: 19 Yes 1{patch } 1 Patch, Topical, Administer over 12 Hours, [id number], Starting on Mon06/29/23 at 1201, Until Discontinu ed, Routine, Localized pain [facility] dextrose 10% (D10W) bolus infusion 250 mL 06-29 16:59: 56 Yes 250mL 250 mL, IV Infusion, PRN - SEE INSTRUCTIO NS, Administer over 60 Minutes, Other, If blood glucose is < or = 70 mg/dL and patient is unable to swallow or has mental status changes, Starting on Mon06/29/23 at 1159
If blood glucose is < or = 70 mg/dL and patient is unable to swallow or has mental status changes (Give glucagon order if patient needs fluid restrictio n): IF IV access available: Dextrose 10%. 1. 125 mL (? bag) of D10W IV infusion - equivalent to 12.5 g dextrose 2. Blood glucose - draw blood glucose 15 minutes after D10W Administra tion. 3. If blood glucose is < 80 mg/dL, repeat.
[facility] glucagon (GLUCAGEN DIAGNOSTIC KIT) injection 1 mg 06-29 16:59: 52 Yes 1mg 1 mg, Intramuscu lar, PRN, Starting on Mon06/29/23 at 1159, Until Discontinu ed, HEAVENLY, Blood Glucose < or = 70 mg/dL and patient is NPO, unable to swallow or has mental changes. [facility] clopidogreL (PLAVIX) 75 mg tablet 75 mg 06-29 14:00: 00 Yes 75mg 75 mg, Oral, DAILY, First dose on Mon06/29/23 at 0900, Until Discontinu ed, Routine
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 Restricted medication : BALTA AYALA [facility] aspirin chewable tablet 81 mg 06-29 14:00: 00 Yes 81mg 81 mg, Oral, DAILY, First dose on Mon06/29/23 at 0900, Until Discontinu ed, Routine [facility] docusate (COLACE) capsule 100 mg 06-29 14:00: 00 Yes 100mg 100 mg, Oral, DAILY, First dose on Mon06/29/23 at 0900, Until Discontinu ed, Routine [facility] enoxaparin (LOVENOX) injection 40 mg 06-29 14:00: 00 Yes 40mg 40 mg, Subcutaneo us, DAILY, First dose on Mon06/29/23 at 0900, Until Discontinu ed, Routine [facility] furosemide (LASIX) tablet 20 mg 06-29 14:00: 00 Yes 20mg 20 mg, Oral, DAILY, First dose on Mon06/29/23 at 0900, Until Discontinu ed, Routine [facility] ferrous sulfate tablet 325 mg 06-29 14:00: 00 Yes 325mg 325 mg, Oral, DAILY, First dose on Mon06/29/23 at 0900, Until Discontinu ed, Routine [facility] losartan (COZAAR) tablet 50 mg 06-29 14:00: 00 06-30 13:06 :52 No 50mg 50 mg, Oral, DAILY, First dose on Mon06/29/23 at 0900, Until Discontinu ed, Routine [facility] acetaminoph en (TYLENOL) tablet 650 mg 06-29 13:35: 26 Yes 650mg 650 mg, Oral, Q6HPRN, Starting on Mon06/29/23 at 0835, Until Discontinu ed, Routine, Pain (scale 1-3), Temp > 38 C [facility] HYDROcodone -acetaminop hen (NORCO) 10-325 mg tablet 1 tablet 06-29 13:35: 03 Yes 1{tbl} 1 tablet, Oral, Q6HPRN, Starting on Mon06/29/23 at 0835, Until Discontinu ed, Routine, Pain (scale 4-6) [facility] HYDROmorphO ne (DILAUDID) injection 1 mg 06-29 13:34: 48 07-01 08:01 :15 No 1mg 1 mg, Slow IV Push, Q6HPRN, Starting on Rema 06/29/23 at 0834, Until 07/01/23 at 0301, Routine, Pain (scale 7-10)
U se approved by (Faculty): ADC PROVIDER [facility] ALPRAZolam (XANAX) tablet 0.25 mg 06-29 13:00: 00 Yes .25mg 0.25 mg, Oral, TID, First dose on Mon06/29/23 at 0800, Until Discontinu ed, Routine [facility] metoprolol tartrate (LOPRESSOR) tablet 50 mg 06-29 13:00: 00 Yes 50mg 50 mg, Oral, Q12H, First dose on Mon06/29/23 at 0800, Until Discontinu ed, Routine [facility] amiodarone (PACERONE) tablet 200 mg 06-29 13:00: 00 06-30 13:06 :52 No 200mg 200 mg, Oral, BID, First dose on Mon06/29/23 at 0800, Until Discontinu ed, Routine [facility] methylPREDN ISolone sod succ (SOLU-MEDRO L (PF)) injection 40 mg 06-29 12:30: 00 06-29 11:43 :00 No 40mg 40 mg, Intravenou s, ONCE, 1 dose, On Mon06/29/23 at 0730, 1 mL [facility] levalbutero l (XOPENEX) nebulizer solution 1.25 mg 06-29 11:35: 22 Yes 1.25mg 1.25 mg, Inhalation , TIDPRN, Starting on Mon06/29/23 at 0635, Until Discontinu ed, Routine, Wheezing, Shortness of Breath [facility] HYDROmorpho ne (DILAUDID) injection 1 mg 06-29 08:02: 15 06-29 13:35 :37 No 1mg 1 mg, Slow IV Push, Q6HPRN, Starting on Mon06/29/23 at 0302, Until Mon06/29/23 at 0835, Routine, Pain (scale 7-10), Pain (scale 4-6)
Us e approved by (Faculty): ADC PROVIDER [facility] cloNIDine (CATAPRES) tablet 0.1 mg 06-29 08:02: 00 06-29 08:20 :00 No .1mg 0.1 mg, Oral, ONCE, 1 dose, On Mon06/29/23 at 0315, Routine [facility] hydralAZINE (APRESOLINE ) injection 10 mg 06-29 08:01: 47 Yes 10mg 10 mg, Slow IV Push, Q4HPRN, Starting on Mon06/29/23 at 0301, Until Discontinu ed, HEAVENLY, DBP=>100; SBP=>160 [facility] NaCl 0.9% (NS) IV infusion 1,000 mL 06-29 05:00: 00 06-29 09:29 :07 No 1000mL at 50 mL/hr, IV Infusion, CONTINUOUS , Starting on Mon06/29/23 at 0000, Until Mon06/29/23 at 0429, Routine [facility] ondansetron (ZOFRAN (PF)) injection 4 mg 06-29 04:47: 41 Yes 4mg 4 mg, Slow IV Push, Q6HPRN, Starting on Mon06/28/23 at 2347, Until Discontinu ed, Routine, Nausea and Vomiting (N/V) [facility] FENTanyl PF (SUBLIMAZE (PF)) injection 12.5 mcg 06-29 04:47: 34 06-29 13:35 :37 No 12.5ug 12.5 mcg, Slow IV Push, Q6HPRN, Starting on Mon06/28/23 at 2347, Until Mon06/29/23 at 0835, Routine, Pain (scale 7-10) [facility] HYDROcodone -acetaminop hen (NORCO 5) 5-325 mg tablet 1 tablet 06-29 04:47: 24 06-29 13:35 :37 No 1{tbl} 1 tablet, Oral, Q6HPRN, Starting on Mon06/28/23 at 2347, Until Rema 06/29/23 at 0835, Routine, Pain (scale 4-6) [facility] nitroglycer in (NITROSTAT) sublingual tablet 0.4 mg 06-29 02:49: 08 06-29 03:18 :00 No [id number] .4mg 0.4 mg, Sublingual , Q5MIN PRN, 3 doses, Starting on Mon06/28/23 at 2149, Until Mon06/28/23 at 2218, HEAVENLY, Chest pain [facility] cloNIDine (CATAPRES) tablet 0.2 mg 12-30 01:30: 00 12-30 00:25 :00 No .2mg 0.2 mg, Oral, ONCE, 1 dose, 12/30/19 at 2030, STAT [facility] amLODIPine 10 mg tablet 12-29 00:00: 00 Yes [id number] 10mg Take 1 tablet by mouth daily. [facility] Vital Signs Vital Name Observation Time Observation Value Comments S ource Heart rate 2023-06-30 16:38:00 63 /min [facility] Body temperature 2023-06-30 16:38:00 36.17 Yessi [facility] Oxygen saturation in Arterial blood by Pulse oximetry 2023-06-30 16:38:00 95 /min [facility] Systolic blood pressure 2023-06-30 16:07:00 141 mm[Hg] [facility] Diastolic blood pressure 2023-06-30 16:07:00 83 mm[Hg] [facility] Respiratory rate 2023-06-30 16:07:00 18 /min [facility] Body weight 2023-06-30 08:04:[address] [facility] BMI 2023-06-30 08:04:00 40.54 kg/m2 [facility] Body height 2023-06-29 06:02:[address] [facility] Systolic blood pressure 2019-12-31 01:00:00 162 mm[Hg] [facility] Diastolic blood pressure 2019-12-31 01:00:00 98 mm[Hg] [facility] Heart rate 2019-12-31 01:00:00 81 /min [facility] Respiratory rate 2019-12-31 01:00:00 16 /min [facility] Oxygen saturation in Arterial blood by Pulse oximetry 2019-12-31 01:00:00 98 /min [facility] Body temperature 2019-12-30 23:02:00 36.78 Yessi [facility] Body weight 2019-12-30 23:02:[address] [facility] Procedures Procedure Date / Time Performed Performing Clinician Source US RETROPERITONEAL COMPLETE 2023-06-30 17:46:42 Grace Alonzo [facility] POCT GLUCOSE (AUTOMATED) 2023-06-30 16:40:00 Jaci Ayala [facility] MAGNESIUM 2023-06-30 15:55:00 Grace Alonzo [facility] BASIC METABOLIC PANEL (NA, K, CL, CO2, GLUCOSE, BUN, CREATININE, CA) 2023-06-30 15:55:00 Grace Alonzo [facility] RENAL ARTERY DUPLEX - BY VASCULAR LAB 2023-06-30 13:56:00 Genevieve Dobbs [facility] POCT GLUCOSE (AUTOMATED) 2023-06-30 12:24:00 Jaci Ayala [facility] POCT GLUCOSE (AUTOMATED) 2023-06-30 08:59:00 Jaci Ayala [facility] POCT GLUCOSE (AUTOMATED) 2023-06-30 02:32:00 Jaci Ayala [facility] POCT GLUCOSE (AUTOMATED) 2023-06-29 21:19:00 Jaci Ayala [facility] TRANSTHORACIC ECHO (TTE) COMPLETE 2023-06-29 19:33:00 Balta Ayala [facility] TROPONIN I 2023-06-29 16:43:00 Balta Ayala [facility] XR CHEST 1 VW 2023-06-29 11:50:05 [facility] 2023-06-29 11:27:00 Balta Ayala [facility] MAGNESIUM 2023-06-29 11:27:00 Balta Ayala [facility] TROPONIN I 2023-06-29 11:27:00 Balta Ayala [facility] BASIC METABOLIC PANEL (NA, K, CL, CO2, GLUCOSE, BUN, CREATININE, CA) 2023-06-29 11:27:00 Balta Ayala [facility] LIPID PANEL (01860)(TOTAL CHOLESTEROL, TRIGLYCERIDES, HDL) 2023-06-29 11:27:00 Balta Ayala [facility] CBC WITH DIFF 2023-06-29 11:27:00 Balta Ayala Un [facility] GLYCOSYLATED HEMOGLOBIN (A1C) 2023-06-29 11:27:00 Grace Alonzo [facility] N-TERMINAL PRO-BNP 2023-06-29 11:27:00 Balta Ayala [facility] XR CHEST 1 VW 2023-06-29 03:13:00 Singer [facility] TROPONIN I 2023-06-29 02:44:00 Singer [facility] COMP. METABOLIC PANEL (48149) 2023-06-29 02:44:00 Singer [facility] CBC WITH DIFF 2023-06-29 02:44:00 Singer [facility] N-TERMINAL PRO-BNP 2023-06-29 02:44:00 Singer [facility] HB ECG ROUTINE & RHYTHM STRIP 2023-06-29 02:42:22 Singer [facility] CONSENT/REFUSAL FOR DIAGNOSIS AND TREATMENT 2023-06-29 02:17:31 Doctor Unassigned, Celina [facility] [id number] 2023-01-02 00:00:00 [facility] [id number] 2023-01-02 00:00:00 [facility] [id number] 2023-01-02 00:00:00 [facility] [id number] 2023-01-02 00:00:00 [facility] [id number] 2023-01-02 00:00:00 [facility] [id number] 2023-01-02 00:00:00 [facility] [id number] 2023-01-02 00:00:[address] [facility] [facility] [address] HEAD WO CONTRAST 2019-12-31 00:42:33 Wellington Chavez [facility] HEPATIC FUNCTION PANEL (62455) (ALB,T.PRO,BILI T,BU/BC,ALT,AST,ALK PHOS) 2019-12-31 00:33:00 Wellington Chavez [facility] BASIC METABOLIC PANEL (NA, K, CL, CO2, GLUCOSE, BUN, CREATININE, CA) 2019-12-31 00:33:00 Wellington Chavez [facility] CBC WITH DIFFERENTIAL 2019-12-31 00:33:00 Wellington Chavez [facility] ADC,CLC OR LCC ONLY - INFLUENZA A & B DIRECT ANTIGEN 2019-12-31 00:33:00 Wellington Chavez [facility] NOTICE OF PRIVACY PRACTICES 2019-12-30 22:51:05 Doctor Unassigned, Celina [facility] Encounters Start Date/Time End Date/Time Encounter Type Admission Type Attending Clinicians Care Facility Care Department Encounter ID Source 2024-01-11 10:07:14 2024-01-11 10:07:[address] [facility] [id number] Hilario Thurston Zenon 2024-01-09 09:02:52 2024-01-09 09:02:52 Outpatient [facility] [id number] Hilario Yarbrough 2024-01-08 10:54:20 2024-01-08 10:54:20 Outpatient [facility] [id number] Hilario Yarbrough 2023-07-12 09:38:45 2023-07-12 09:38:45 Outpatient [facility] [id number] Hilario Yarbrough 2023-07-10 08:47:05 2023-07-10 08:47:05 Outpatient [facility] [id number] Hilario Yarbrough 2023-07-03 00:00:00 2023-07-03 00:00:00 Telephone Genevieve Dobbs [facility] [id number] [facility] 2023-06-28 21:35:00 2023-06-30 16:25:00 Outpatient Genesis BALTA AYALA [facility] [id number] [facility] 2023-06-28 21:35:00 2023-06-30 16:25:00 Emergency JassoBerny Mohammad [facility] [id number] [facility] 2023-05-15 10:57:51 2023-05-15 10:57:51 Outpatient [facility] [id number] Hilario Yarbrough 2023-05-08 11:36:33 2023-05-08 11:36:33 Outpatient [facility] [id number] Hilario Yarbrough 2023-04-20 02:58:00 2023-04-21 11:51:00 Inpatient EM Jessi Chavez [facility] [id number] [facility] 2023-02-24 08:31:53 2023-02-24 08:31:53 Outpatient [facility] [id number] Hilario Yarbrough 2022-12-30 04:41:00 2023-01-09 11:53:00 Inpatient Kodi Boggs [facility] [id number] [facility] 2022-12-26 16:37:11 2022-12-26 16:37:[address] [facility] [id number] Hilario Yarbrough 2022-09-15 08:55:00 2022-09-15 08:55:[address] [facility] [id number] Hilario Yarbrough 2022-09-12 15:47:48 2022-09-12 15:47:[address] [facility] [id number] Hilario Yarbrough 2019-12-30 18:03:19 2019-12-30 20:58:00 Emergency Wellington Chavez [facility] [id number] [facility] 2019-12-30 18:03:19 2019-12-30 20:58:00 Emergency [facility] [id number] [facility] Results Test Description Test Time Test Comments Results Result Co mments Source [facility] GLUCOSE (AUTOMATED)2023-06-30 12:25:57* Test Item Value Reference Range Interpretation Comme [facility] POCT GLU (test code = 4342559558) 224 mg/dL 70-110 H Lab Interpretation (test cod e = 59670-9) Abnormal [facility] GLUCOSE (AUTOMATED)2023-06-30 09:01:00* Test Item Value Reference Range Interpretation Comme [facility] POCT GLU (test code = 7878270511) 237 mg/dL 70-110 H Lab Interpretation (test cod e = 03725-7) Abnormal [facility] GLUCOSE (AUTOMATED)2023-06-30 02:34:06* Test Item Value Reference Range Interpretation Comme [facility] POCT GLU (test code = 7443753955) 337 mg/dL 70-110 H Lab Interpretation (test cod e = 55283-5) Abnormal [facility]A1C[facility]2023-06-29 23:01:16* Test Item Value Reference Range Interpretation Comme nts HGB A1C (test code = 4548-4) 6.7 % 4.0-5.7 H HARIKA (test code = HARIKA) Reference RangesNormal: <5.7%Prediabetes: 5.7 - 6.4%Diabetes: > 6.5% Lab Interpretation (test code = 64297-6) Abnormal [facility]2023-06-29 21:20:15* Test Item Value Reference Range Interpretation Comme [facility] POCT GLU (test code = 7246241463) 307 mg/dL 70-110 H Lab Interpretation (test cod e = 82027-9) Abnormal [facility] [id number] 12:44:17* Test Item Value Reference Range Interpretation Comme [facility] TROPONIN I (test code = 9245427517) 0.043 ng/mL <=0.034 H HARIKA (test code = HARIKA) Reference (Normal) Range (defined by the 99th percentile reference limit): <= 0.034 ng/mL Note: Cardiac troponin begins to rise 3-4 hours after the onset of ischemia. Repeat in 4-6 hours if the sample was drawn within 3-4 hours of the onset of the symptom and found normal. Diagnosis of myocardial injury is made with acute changes in cTn concentrations with at least one serial sample above the 99th percentile upper reference limit (URL), taken together with the patient's clinical presentation. Biotin has been reported to cause a negative bias, interpret results relative to patient's use of biotin. Lab Interpretation (test code = 81965-6) Abnormal [facility] [id number] 12:41:39* Test Item Value Reference Range Interpretation Comme [facility] NT-proBNP (test code = 41038-8) 630 pg/mL <=125 HARIKA (test code = HARIKA) Result Indeterminate-Consid er causes of NT-proBNP elevation other than Heart failure such as acute coronary syndrome, pulmonary embolism, pulmonary hypertension, sepsis, stroke, and renal dysfunction. Lab Interpretation (test code = 84069-3) Abnormal [facility](67001)(Total Cholesterol, Triglycerides, HDL)2023-06-29 12:33:18* Test Item Value Reference Range Interpretation Comme [facility] CHOL (test code = 7158881167) 116 mg/dL 120-200 L HDL (test code = 3167725290) 29 mg/dL >=40 L HDLC RATIO (test code = 5868315386) 4.0 <=5.0 TRIG (test code = 7963537005) 230 mg/dL 30-170 H LDL CHOL (test code = 47531-7) 41 mg/dL <=160 VLDL (test code = 1087693863) 46 mg/dL 5-60 Lab Interpretation (test cod e = 78803-3) Abnormal [facility] [id number] 12:33:18* Test Item Value Reference Range Interpretation Comme nts MAGNESIUM (test code = 8611486707) 2.0 mg/dL 1.7-2.4 Lab Interpretation (test cod e = 97985-6) Normal [facility] Metabolic Panel (NA, K, CL, CO2, GLUCOSE, BUN, CREATININE, CA)2023-06-29 12:32:58* Test Item Value Reference Range Interpretation Comme nts NA (test code = 0680021477) 140 mmol/L 135-145 K (test code = 7172652767) 3.9 mmol/L 3.5-5.0 CL (test code = 0757537983) 103 mmol/L 98-108 CO2 TOTAL (test code = 2441075764) 29 mmol/L 23-31 AGAP (test code = 0757543974) 8 2-16 BUN (test code = 6731358816) 19 mg/dL 7-23 GLUCOSE (test code = 6403065317) 192 mg/dL 70-110 H CREATININE (test code = 4790010425) 1.02 mg/dL 0.60-1.25 CALCIUM (test code = 6537501707) 9.2 mg/dL 8.6-10.6 eGFR (test code = 8881596005) 76.4 mL/min/1.73m2 HARIKA (test code = HARIKA) Association of [...] or abnormalities in imaging tests). Lab Interpretation (test code = 26439-9) [facility]normal [facility] [id number] 12:32:58* Test Item Value Reference Range Interpretation Comme nts PHOSPHORUS (test code = 7652944707) 2.6 mg/dL 2.5-5.0 Lab Interpretation (test cod e = 52270-0) Normal [facility] with [id number] 12:23:59* Test Item Value Reference Range Interpretation Comme nts WBC (test code = 6690-2) 9.66 See_Comment [Automated [employer]] The system which generated this result transmitted reference range: 4.20 - 10.70 10*3/?L. The reference range was not used to interpret this result as normal/abnormal. RBC (test code = 789-8) 4.56 See_Comment [Automated [employer]] The system which generated this result transmitted reference range: 4.26 - 5.52 10*6/?L. The reference range was not used to interpret this result as normal/abnormal. HGB (test code = 718-7) 14.4 g/dL 12.2-16.4 HCT (test code = 4544-3) 41.6 % 38.4-49.3 MCV (test code = 787-2) 91.2 fL 81.7-95.6 MCH (test code = 785-6) 31.6 pg 26.1-32.7 MCHC (test code = 786-4) 34.6 g/dL 31.2-35.0 RDW-SD (test code = 06155-0) 44.5 fL 38.5-51.6 RDW-CV (test code = 788-0) 13.4 % 12.1-15.4 PLT (test code = 777-3) 182 See_Comment [Automated messa ge] The system which generated this result transmitted reference range: 150 - 328 10*3/?L. The reference range was not used to interpret this result as normal/abnormal. MPV (test code = 69920-7) 9.8 fL 9.8-13.0 NRBC/100 WBC (test code = 5584443195) 0.0 See_Comment [Automated me ssage] The system which generated this result transmitted reference range: 0.0 - 10.0 /100 WBCs. The reference range was not used to interpret this result as normal/abnormal. NRBC x10^3 (test code = 5837541931) See_Comment [Automated me ssage] The system which generated this result transmitted reference range: 10*3/?L. The reference range was not used to interpret this result as normal/abnormal. GRAN MAT (NEUT) % (test code = 770-8) 69.4 % IMM GRAN % (test code = 4823188626) 0.40 % LYMPH % (test code = 736-9) 17.9 % MONO % (test code = 5905-5) 10.5 % EOS % (test code = 713-8) 1.4 % BASO % (test code = 706-2) 0.4 % GRAN MAT x10^3(ANC) (test code = 9488432668) 6.70 10*3/uL 1.99-6.95 IMM GRAN x10^3 (test code = 4314005229) 0.04 10*3/uL 0.00-0.06 LYMPH x10^3 (test code = 731-0) 1.73 10*3/uL 1.09-3.23 MONO x10^3 (test code = 742-7) 1.01 10*3/uL 0.36-1.02 EOS x10^3 (test code = 711-2) 0.14 10*3/uL 0.06-0.53 BASO x10^3 (test code = 704-7) 0.04 10*3/uL 0.01-0.09 [facility] [id number] 03:41:39* Test Item Value Reference Range Interpretation Comme nts TROPONIN I (test code = 2070007083) 0.036 ng/mL <=0.034 H HARIKA (test code = HARIKA) Reference (Normal) Range (defined by the 99th percentile reference limit): <= 0.034 ng/mL Note: Cardiac troponin begins to rise 3-4 hours after the onset of ischemia. Repeat in 4-6 hours if the sample was drawn within 3-4 hours of the onset of the symptom and found normal. Diagnosis of myocardial injury is made with acute changes in cTn concentrations with at least one serial sample above the 99th percentile upper reference limit (URL), taken together with the patient's clinical presentation. Biotin has been reported to cause a negative bias, interpret results relative to patient's use of biotin. Lab Interpretation (test code = 98973-9) Abnormal [facility] [id number] 03:38:58* Test Item Value Reference Range Interpretation Comme nts NT-proBNP (test code = 26291-8) 687 pg/mL <=125 HARIKA (test code = HARIKA) Result Indeterminate-Consid er causes of NT-proBNP elevation other than Heart failure such as acute coronary syndrome, pulmonary embolism, pulmonary hypertension, sepsis, stroke, and renal dysfunction. Lab Interpretation (test code = 61662-5) Abnormal [facility]bergCOMP. METABOLIC PANEL (70666)2023-06-29 03:20:36* Test Item Value Reference Range Interpretation Comme nts NA (test code = 1825607494) 141 mmol/L 135-145 K (test code = 4614436790) 4.2 mmol/L 3.5-5.0 CL (test code = 2844520150) 102 mmol/L 98-108 CO2 TOTAL (test code = 5871995111) 30 mmol/L 23-31 AGAP (test code = 1590451159) 9 2-16 BUN (test code = 6847886091) 19 mg/dL 7-23 GLUCOSE (test code = 0108864811) 227 mg/dL 70-110 H CREATININE (test code = 8630050036) 1.16 mg/dL 0.60-1.25 TOTAL BILI (test code = 6434710960) 0.5 mg/dL 0.1-1.1 CALCIUM (test code = 4977549862) 9.5 mg/dL 8.6-10.6 T PROTEIN (test code = 2336982427) 7.2 g/dL 6.3-8.2 ALBUMIN (test code = 9507573898) 4.3 g/dL 3.5-5.0 ALK PHOS (test code = 9301309416) 126 U/L 34-122 H ALTv (test code = 1742-6) 47 U/L 5-50 AST(SGOT) (test code = 6681696852) 34 U/L 13-40 eGFR (test code = 8822829334) 65.9 mL/min/1.73m2 HARIKA (test code = HARIKA) Association of [...] or abnormalities in imaging tests). Lab Interpretation (test code = 08963-5) Abnormal [facility] WITH [id number] 03:09:38* Test Item Value Reference Range Interpretation Comme nts WBC (test code = 6690-2) 11.27 See_Comment H [Automated messa ge] The system which generated this result transmitted reference range: 4.20 - 10.70 10*3/?L. The reference range was not used to interpret this result as normal/abnormal. RBC (test code = 789-8) 4.92 See_Comment [Automated [employer]] The system which generated this result transmitted reference range: 4.26 - 5.52 10*6/?L. The reference range was not used to interpret this result as normal/abnormal. HGB (test code = 718-7) 15.8 g/dL 12.2-16.4 HCT (test code = 4544-3) 44.9 % 38.4-49.3 MCV (test code = 787-2) 91.3 fL 81.7-95.6 MCH (test code = 785-6) 32.1 pg 26.1-32.7 MCHC (test code = 786-4) 35.2 g/dL 31.2-35.0 H RDW-SD (test code = 74653-3) 44.8 fL 38.5-51.6 RDW-CV (test code = 788-0) 13.3 % 12.1-15.4 PLT (test code = 777-3) 210 See_Comment [Automated [employer]] The system which generated this result transmitted reference range: 150 - 328 10*3/?L. The reference range was not used to interpret this result as normal/abnormal. MPV (test code = 39162-2) 9.7 fL 9.8-13.0 L NRBC/100 WBC (test code = 8025632286) 0.0 See_Comment [Automated [employer] ssage] The system which generated this result transmitted reference range: 0.0 - 10.0 /100 WBCs. The reference range was not used to interpret this result as normal/abnormal. NRBC x10^3 (test code = 8469470133) See_Comment [Automated messa ge] The system which generated this result transmitted reference range: 10*3/?L. The reference range was not used to interpret this result as normal/abnormal. GRAN MAT (NEUT) % (test code = 770-8) 75.6 % IMM GRAN % (test code = 7477814637) 0.40 % LYMPH % (test code = 736-9) 14.1 % MONO % (test code = 5905-5) 8.3 % EOS % (test code = 713-8) 1.2 % BASO % (test code = 706-2) 0.4 % GRAN MAT x10^3(ANC) (test code = 2546733896) 8.52 10*3/uL 1.99-6.95 H IMM GRAN x10^3 (test code = 8603847080) 0.04 10*3/uL 0.00-0.06 LYMPH x10^3 (test code = 731-0) 1.59 10*3/uL 1.09-3.23 MONO x10^3 (test code = 742-7) 0.94 10*3/uL 0.36-1.02 EOS x10^3 (test code = 711-2) 0.13 10*3/uL 0.06-0.53 BASO x10^3 (test code = 704-7) 0.05 10*3/uL 0.01-0.09 Lab Interpretation (test code = 07446-8) Abnormal [facility]bergGLUCOSE [id number] 08:57:00* Test Item Value Reference Range Interpretation Comme nts GLUCOSE BEDSIDE (test code = GLUBED) 189 MG/DL 70-110 H Performed by cer tified hat brim and crown laminating operator at [facility] GLUCOSE [id number] 19:06:00* Test Item Value Reference Range Interpretation Comme nts GLUCOSE BEDSIDE (test code = GLUBED) 155 MG/DL 70-110 H Performed by cer tified hat brim and crown laminating operator at [facility] GLUCOSE [id number] 16:51:00* Test Item Value Reference Range Interpretation Comme nts GLUCOSE BEDSIDE (test code = GLUBED) 187 MG/DL 70-110 H Performed by florentin monroy at [facility] TROP-I HIGH [id number] 08:38:00* Test Item Value Reference Range Interpretation Comme [facility] TROP-I HIGH SENSITIVITY (test code = TROPIHS) 44 ng/L 0-54 N CAUTION: Units o f the current test methodology (ng/L) differfrom the prior test methodology (ng/mL) by a factor of 1000. 99th Percentile Upper Reference Limit (URL): Females: 34 ng/LMales: 54 ng/L In order to distinguish acute elevations of high sensitivitytroponin from other clinical conditions, the FourthUniversal Definition of Myocardial Infarction stressesclinical assessment and the demonstration of a rise and/orfall in serial troponin results above the URL. These results were obtained using [employer] TnIHreagent. Results from different methodologies should not becompared to one another as quantitative results and URLs mayvary by method. TROP-I HIGH [id number] 05:13:00* Test Item Value Reference Range Interpretation Comme [facility] TROP-I HIGH SENSITIVITY (test code = TROPIHS) 43 ng/L 0-54 N CAUTION: Units o f the current test methodology (ng/L) differfrom the prior test methodology (ng/mL) by a factor of 1000. 99th Percentile Upper Reference Limit (URL): Females: 34 ng/LMales: 54 ng/L In order to distinguish acute elevations of high sensitivitytroponin from other clinical conditions, the FourthUniversal Definition of Myocardial Infarction stressesclinical assessment and the demonstration of a rise and/orfall in serial troponin results above the URL. These results were obtained using [employer] IM TnIHreagent. Results from different methodologies should not becompared to one another as quantitative results and URLs mayvary by method. COMPREHENSIVE METABOLIC [id number] 03:16:00* Test Item Value Reference Range Interpretation Comme nts SODIUM (test code = NA) 141 mEq/L 134-147 N POTASSIUM (test code = K) 3.6 mEq/L 3.4-5.0 N CHLORIDE (test code = CL) 105 mEq/L 100-108 N CARBON DIOXIDE (test code = CO2) 30 mEq/l 21-33 N ANION GAP (test code = GAP) 10 0-20 N GLUCOSE (test code = GLU) 158 mg/dL 70-110 H BLOOD UREA NITROGEN (test code = BUN) 14 mg/dL 7-18 N GLOMERULAR FILTRATION RATE (test code = GFR) 90.0 90-95 N The Glomerular Filtration Rate is a calculated parameterbased on serum Creatinine, patient age and sex. GFR valuesless than 60 mL/min/1.73 square meters are indicative ofChronic Kidney Disease. Values less than 15 mL/min/1.73square meters indicate Kidney failure. The calculation forGFR is based on the CKD-EPI (2020) calculation. This formulais race indifferent and is the recommended formula for GFRby the National Kidney Foundation for Adults.The GFR will not calculate if the sex is unknown or if thepatient's age is <18 years. CREATININE (test code = CREAT) 1.0 mg/dL 0.6-1.3 N TOTAL PROTEIN (test code = PROT) 6.8 g/dL 6.4-8.2 N ALBUMIN (test code = ALB) 4.00 g/dL 3.4-5.0 N CALCIUM (test code = CA) 8.5 mg/dL 8.0-10.5 N BILIRUBIN TOTAL (test code = BILT) 0.40 mg/dL 0.0-1.0 N SGOT/AST (test code = AST) 26 IUnit/L 15-37 N SGPT/ALT (test code = ALT) 32 IUnit/L 30-65 N ALKALINE PHOSPHATASE TOTAL (test code = ALKP) 97 IUnit/L 20-125 N [id number] 03:16:00* Test Item Value Reference Range Interpretation Comme nts PHOSPHOROUS (test code = PHOS) 3.2 MG/DL 2.5-4.9 N CREATINE KINASE (CK)2023-04-20 03:16:00* Test Item Value Reference Range Interpretation Comme nts CREATINE KINASE (CK) (test c ode = CK) 44 Units/L 46-171 L [id number] 03:16:00* Test Item Value Reference Range Interpretation Comme nts MAGNESIUM (test code = MAG) 2.16 mg/dL 1.80-2.40 N TROP-I HIGH [id number] 03:16:00* Test Item Value Reference Range Interpretation Comme nts TROP-I HIGH SENSITIVITY (test code = TROPIHS) 45 ng/L 0-54 N CAUTION: Units o f the current test methodology (ng/L) differfrom the prior test methodology (ng/mL) by a factor of 1000. 99th Percentile Upper Reference Limit (URL): Females: 34 ng/LMales: 54 ng/L In order to distinguish acute elevations of high sensitivitytroponin from other clinical conditions, the FourthUniversal Definition of Myocardial Infarction stressesclinical assessment and the demonstration of a rise and/orfall in serial troponin results above the URL. These results were obtained using [employer] IM TnIHreagent. Results from different methodologies should not becompared to one another as quantitative results and URLs mayvary by method. B-TYPE NATRIURETIC [id number] 03:15:00* Test Item Value Reference Range Interpretation Comme nts B-TYPE NATRIURETIC PEPTIDE ( test code = BNP) 95.0 PG/ML 0-100 N CBC W/AUTO [id number] 02:28:00* Test Item Value Reference Range Interpretation Comme nts WHITE BLOOD CELL (test code = WBC) 6.9 x10 3/uL 4.5-11.0 RED BLOOD CELL (test code = RBC) 4.81 x10 6/uL 4.00-5.60 N HEMOGLOBIN (test code = HGB) 14.7 g/dL 12.5-16.9 N HEMATOCRIT (test code = HCT) 44.5 % 37.5-50.7 N MEAN CELL VOLUME (test code = MCV) 92.5 fL 81.0-99.0 N MEAN CELL HGB (test code = MCH) 30.6 pg 27.0-33.0 N MEAN CELL HGB CONCETRATION (test code = MCHC) 33.0 g/dL 33.0-37.0 N RED CELL DISTRIBUTION WIDTH CV (test code = RDW) 14.0 % 11.5-14.5 N RED CELL DISTRIBUTION WIDTH SD (test code = RDW-SD) 47.8 fL 37.0-54.0 N PLATELET COUNT (test code = PLT) 186 x10 3/uL 150-400 N MEAN PLATELET VOLUME (test c ode = MPV) 9.9 fL 7.0-9.0 H NEUTROPHIL % (test code = NT%) 67.3 % 56.0-77.0 N IMMATURE GRANULOCYTE % (test code = IG%) 0.3 % 0.0-2.0 N LYMPHOCYTE % (test code = LY%) 21.7 % 14.0-32.0 N MONOCYTE % (test code = MO%) 8.3 % 4.8-9.0 N EOSINOPHIL % (test code = EO%) 2.0 % 0.3-3.7 N BASOPHIL % (test code = BA%) 0.4 % 0.0-2.0 N NUCLEATED RBC % (test code = NRBC%) 0.0 % 0-0 N NEUTROPHIL # (test code = NT#) 4.62 x10 3/uL 2.0-7.6 N IMMATURE GRANULOCYTE # (test code = IG#) 0.02 x10 3/uL 0.00-0.03 N LYMPHOCYTE # (test code = LY#) 1.49 x10 3/uL 1.0-3.8 N MONOCYTE # (test code = MO#) 0.57 x10 3/uL 0.1-0.8 N EOSINOPHIL # (test code = EO#) 0.14 x10 3/uL 0.0-0.2 N BASOPHIL # (test code = BA#) 0.03 x10 3/uL 0.0-0.2 N NUCLEATED RBC # (test code = NRBC#) 0.00 x10 3/uL 0.0-0.1 N MANUAL DIFF REQUIRED (test c ode = MDIFF) NO - XR CHEST 1 [id number] 00:00:00 [facility] 1970 Sex: M FAX: Eric Chairez [phone] [place]: St: ADM FAX: Zabrina Terrell y [phone] Name: SHEKHAR LOZADA [facility] : 1970 Age/S: 52/M [address] [place] [address] Unit #: [id number] Loc: G.4417 [place] [address] Phys: Zabrina Ruiz Physic Acct: [id number] Dis Date: Status: ADM IN PHONE #: [phone] Exam Date: 04/20/20232010 FAX #: [phone] Reason: Chest pains EXAMS: CPT CODE: [id number] XR CHEST 1 V 54254 PROCEDURE INFORMATION: Exam: XR Chest Exam date and time: 04/20/2023 8:10 PM Age: 52 years old Clinical indication: Angina, chest pain. TECHNIQUE: Imaging protocol: Radiologic exam of the chest. Views: 1 view. Other technique: 1 view, frontal COMPARISON: CR XR CHEST 1V 01/09/2023 5:54 AM * CHEST, portable, 1 view TECHNIQUE: A portable frontal radiograph of the chest w as obtained. FINDINGS: There are poststernotomy changes. There is mild cardiomegaly. There is no overt failure. The lungs are clear. There are no pleural effusions. The regional skeleton is unremarkable. IMPRESSION: 1. No active disease. 2. Poststernotomy changes. 3. Mild cardiomegally. Electro nically Signed by Evangelina Ramirez on 04/20/2023 at 2108 Reported and signed by: Higinio Ramirez M.D. CC: Eric Crabtree MD; Zabrina Ruiz Technologist: Dee Dee Graff RT(R); RT Crissy(R) Trnvard Date/Time/By: 04/20/2023 (2108) : By: [email or web address] Orig Print D/T: S: 04/20/2023 (2109) PAGE 1 Signed ReportPREKALLIKREIN [id number] 11:10:51* Test Item Value Reference Range Interpretation Comme nts PREKALLIKREIN ASSAY (test code = 75139) 82 % 55-207 TESTING PERFORME D AT [facility], [address] [address] [place]. [id number] CLIA NO. [id number] 05:27:29* Test Item Value Reference Range Interpretation Comme nts TRANSFERRIN (test code = 4936) 260 MG/DL 200-360 COMPREHENSIVE METABOLIC [id number] 04:55:16* Test Item Value Reference Range Interpretation Comme nts GLUCOSE (test code = 2217) 158 MG/DL 70-99 H BUN (test code = 2208) 16 MG/DL 6-20 CREATININE (test code = 2214) 0.97 MG/DL 0.80-1.40 eGFR (2020 CKD-EPI) (test code = 49081) 93 ML/MIN/1.73 >60 CALC BUN/CREAT (test code = 2235) 16 RATIO 6-28 SODIUM (test code = 223) 143 MEQ/L 133-146 POTASSIUM (test code = 2228) 4.0 MEQ/L 3.5-5.4 CHLORIDE (test code = 2214) 103 MEQ/L 95-107 CARBON DIOXIDE (test code = 2205) 22 MEQ/L 19-31 CALCIUM (test code = 2208) 9.7 MG/DL 8.5-10.5 PROTEIN, TOTAL (test code = 2228) 7.1 G/DL 6.1-8.3 ALBUMIN (test code = 2200) 4.3 G/DL 3.5-5.2 CALC GLOBULIN (test code = 2239) 2.8 G/DL 1.9-3.7 CALC A/G RATIO (test code = 2233) 1.5 RATIO 1.0-2.6 BILIRUBIN, TOTAL (test code = 2206) 0.4 MG/DL See_Comment [Automated me ssage] The system which generated this result transmitted reference range: <=1.2. The reference range was not used to interpret this result as normal/abnormal. ALKALINE PHOSPHATASE (test code = 2203) 132 U/L 40-121 H AST (test code = 2217) 24 U/L 9-50 ALT (test code = 2218) 27 U/L 5-50 LIPID [id number] 04:55:16* Test Item Value Reference Range Interpretation Comme nts CHOLESTEROL (test code = 2209) 184 MG/DL <200 TRIGLYCERIDES (test code = 2231) 115 MG/DL <150 HDL CHOLESTEROL (test code = 2219) 44 MG/DL >39 CALC LDL CHOL (test code = 2236) 117 MG/DL <100 H NOTE: CALCULATED LDL IS BASED ON RAKESH-BYRNE METHOD WHICHINCLUDES ADJUSTABLE TRIGLYCERIDE:VLDL CHOLESTEROL RATIO.THIS FACTOR VARIES BY MEASURED TRIGLYCERIDE AND NON-HDLCHOLESTEROL CONCENTRATIONS WITH INCREASED CALCULATED LDL SEENIN HIGHER TRIGLYCERIDE OR LOWER NON-HDL SPECIMENS. FOR MOREINFORMATION, SEE CLIENT ANNOUNCEMENT AT [email or web address] RISK RATIO LDL/HDL (test code = 2237) 2.66 RATIO <3.55 IRON BINDING CAPACITY AND IRON AND % [id number] 04:55:16* Test Item Value Reference Range Interpretation Comme nts IRON, SERUM (test code = 2221) 113 UG/DL 59-158 UNSATURATED IBC (test code = ) 210 UG/DL 112-347 CALC TOTAL IBC (test code = 2076) 323 UG/DL 250-450 CALC % IRON SAT (test code = 2079) 35 % 20-50 UNLESS OTHERWISE INDICATED, ALL TESTING PERFORMED AT [facility] [address] [place] [address] WASTEWATER DESIGN ENGINEER: SHAGUFTA LLANOS M.D. [place] NUMBER [id number] [facility] [place]. [id number] HEMOGLOBIN [id number] 03:34:22* Test Item Value Reference Range Interpretation Comme nts HEMOGLOBIN A1c (test code = 58951) 6.4 % 4.2-5.6 H [employer] GUIDELINES FOR HGB A1C: PREDIABETES/INCREASED RISK . . . . . . . 5.7-6.4% DIAGNOSIS OF DIABETES . . . . . . . . . >=6.5% WITH CONFIRMATION OR APPROPRIATE SYMPTOMS NOTE: ASSAY MAY BE AFFECTED BY HEMOGLOBINOPATHIES (SICKLE CELL ANEMIA, S-C DISEASE, OTHERS) OR ARTIFICIALLY LOWERED BY DECREASED RED CELL SURVIVAL (HEMOLYTIC ANEMIAS, BLOOD LOSS, ETC.). CONSIDER ALTERNATE TESTING OR LABORATORY CONSULTATION. CBC W/AUTO DIFF WITH [id number] 03:02:37* Test Item Value Reference Range Interpretation Comme nts WBC (test code = 1001) 8.6 K/UL 3.5-11.0 RBC (test code = 1002) 4.91 M/UL 4.50-6.10 HEMOGLOBIN (test code = 1003) 15.0 G/DL 13.5-17.0 HEMATOCRIT (test code = 1004) 44.6 % 40.0-51.0 MCV (test code = 1005) 90.8 fL 80.0-99.0 MCH (test code = 1006) 30.5 PG 25.0-33.0 MCHC (test code = 1007) 33.6 G/DL 31.0-36.0 RDW (test code = 1038) 12.7 % 11.5-15.0 NEUTROPHILS (test code = 1008) 75.5 % LYMPHOCYTES (test code = 1010) 15.4 % MONOCYTES (test code = 1011) 6.3 % EOSINOPHILS (test code = 1012) 1.7 % BASOPHILS (test code = 1013) 0.6 % IMMATURE GRANULOCYTES (test code = 1036) 0.5 % NUCLEATED RBCS (test code = 1065) 0.0 /100 WBC'S See_Comment [Automated messa ge] The system which generated this result transmitted reference range: 0.0. The reference range was not used to interpret this result as normal/abnormal. PLATELET COUNT (test code = 1015) 229 K/UL 130-400 ABSOLUTE NEUTROPHILS (test code = 1066) 6.51 K/UL 1.50-7.50 ABSOLUTE LYMPHOCYTES (test code = 1067) 1.33 K/UL 1.00-4.00 ABSOLUTE MONOCYTES (test code = 1068) 0.54 K/UL 0.20-1.00 ABSOLUTE EOSINOPHILS (test code = 1040) 0.15 K/UL 0.00-0.50 ABSOLUTE BASOPHILS (test code = 1069) 0.05 K/UL 0.00-0.20 ABS IMMATURE GRANULOCYTES (test code = 1020) 0.04 K/UL 0.00-0.10 ABS NUCLEATED RBCS (test code = 61919) 0.00 K/UL 0.00-0.11 BASIC METABOLIC [id number] 04:02:00* Test Item Value Reference Range Interpretation Comme nts SODIUM (test code = NA) 133 mEq/L 134-147 L POTASSIUM (test code = K) 4.4 mEq/L 3.4-5.0 N CHLORIDE (test code = CL) 99 mEq/L 100-108 L CARBON DIOXIDE (test code = CO2) 28 mEq/l 21-33 N ANION GAP (test code = GAP) 11 0-20 N GLUCOSE (test code = GLU) 155 mg/dL 70-110 H BLOOD UREA NITROGEN (test code = BUN) 12 mg/dL 7-18 N GLOMERULAR FILTRATION RATE (test code = GFR) 102.1 90-95 H The Glomerular Filtration Rate is a calculated parameterbased on serum Creatinine, patient age and sex. GFR valuesless than 60 mL/min/1.73 square meters are indicative ofChronic Kidney Disease. Values less than 15 mL/min/1.73square meters indicate Kidney failure. The calculation forGFR is based on the CKD-EPI (202) calculation. This formulais race indifferent and is the recommended formula for GFRby the National Kidney Foundation for Adults.The GFR will not calculate if the sex is unknown or if thepatient's age is <18 years. CREATININE (test code = CREAT) 0.9 mg/dL 0.6-1.3 N CALCIUM (test code = CA) 8.9 mg/dL 8.0-10.5 N [id number] 04:02:00* Test Item Value Reference Range Interpretation Comme nts MAGNESIUM (test code = MAG) 2.00 mg/dL 1.80-2.40 N CBC W/AUTO [id number] 04:00:00* Test Item Value Reference Range Interpretation Comme nts WHITE BLOOD CELL (test code = WBC) 12.9 x10 3/uL 4.5-11.0 H RED BLOOD CELL (test code = RBC) 3.77 x10 6/uL 4.00-5.60 L HEMOGLOBIN (test code = HGB) 11.8 g/dL 12.5-16.9 L HEMATOCRIT (test code = HCT) 36.3 % 37.5-50.7 L MEAN CELL VOLUME (test code = MCV) 96.3 fL 81.0-99.0 N MEAN CELL HGB (test code = MCH) 31.3 pg 27.0-33.0 N MEAN CELL HGB CONCETRATION (test code = MCHC) 32.5 g/dL 33.0-37.0 L RED CELL DISTRIBUTION WIDTH CV (test code = RDW) 13.0 % 11.5-14.5 N RED CELL DISTRIBUTION WIDTH SD (test code = RDW-SD) 45.3 fL 37.0-54.0 N PLATELET COUNT (test code = PLT) 344 x10 3/uL 150-400 N MEAN PLATELET VOLUME (test c ode = MPV) 9.1 fL 7.0-9.0 H NEUTROPHIL % (test code = NT%) 69.8 % 56.0-77.0 N IMMATURE GRANULOCYTE % (test code = IG%) 1.2 % 0.0-2.0 N LYMPHOCYTE % (test code = LY%) 16.5 % 14.0-32.0 N MONOCYTE % (test code = MO%) 9.7 % 4.8-9.0 H EOSINOPHIL % (test code = EO%) 2.5 % 0.3-3.7 N BASOPHIL % (test code = BA%) 0.3 % 0.0-2.0 N NUCLEATED RBC % (test code = NRBC%) 0.0 % 0-0 N NEUTROPHIL # (test code = NT#) 8.96 x10 3/uL 2.0-7.6 H IMMATURE GRANULOCYTE # (test code = IG#) 0.16 x10 3/uL 0.00-0.03 H LYMPHOCYTE # (test code = LY#) 2.12 x10 3/uL 1.0-3.8 N MONOCYTE # (test code = MO#) 1.25 x10 3/uL 0.1-0.8 H EOSINOPHIL # (test code = EO#) 0.32 x10 3/uL 0.0-0.2 H BASOPHIL # (test code = BA#) 0.04 x10 3/uL 0.0-0.2 N NUCLEATED RBC # (test code = NRBC#) 0.00 x10 3/uL 0.0-0.1 N MANUAL DIFF REQUIRED (test c ode = MDIFF) NO - XR CHEST 1 [id number] 00:00:00 [facility] 1970 Sex: M FAX: Eric Chairez [phone] [place]: [address]: ADM Name: SHEKHAR LOZADA [facility] : 1970 Age/S: 52/M [address] [place] [address] Unit #: [id number] Loc: [place] [place] [id number] Phys: Eric Crabtree MD Acct: [id number] Dis Date: Status: ADM IN PHONE #: [phone] Exam Date: 01/09/2023 07 FAX #: [phone] Reason: S/P CABG, 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 EXAMS: CPT CODE: [id number] XR CHEST 1 V 99360 PROCEDURE INFORMATION: Exam: XR Chest Exam date [...] 0829 Reported and signed by: Paulie Arvizu M.D.CC: Eric Crabtree MD Technologist: RT Waylon(Ralph) Trnscrd Date/Time/By: 01/09/2023 (828) : By: [email or web address] Orig Print D/T: S: 01/09/2023 (828) PAGE 1 Signed ReportBASIC METABOLIC PANEL 2023-01-08 02:49:00* Test Item Value Reference Range Interpretation Comme nts SODIUM (test code = NA) 136 mEq/L 134-147 N POTASSIUM (test code = K) 4.2 mEq/L 3.4-5.0 N CHLORIDE (test code = CL) 103 mEq/L 100-108 N CARBON DIOXIDE (test code = CO2) 29 mEq/l 21-33 N ANION GAP (test code = GAP) 9 0-20 N GLUCOSE (test code = GLU) 164 mg/dL 70-110 H BLOOD UREA NITROGEN (test code = BUN) 12 mg/dL 7-18 N GLOMERULAR FILTRATION RATE (test code = GFR) 105.8 90-95 H The Glomerular Filtration Rate is a calculated parameterbased on serum Creatinine, patient age and sex. GFR valuesless than 60 mL/min/1.73 square meters are indicative ofChronic Kidney Disease. Values less than 15 mL/min/1.73square meters indicate Kidney failure. The calculation forGFR is based on the CKD-EPI (2020) calculation. This formulais race indifferent and is the recommended formula for GFRby the National Kidney Foundation for Adults.The GFR will not calculate if the sex is unknown or if thepatient's age is <18 years. CREATININE (test code = CREAT) 0.8 mg/dL 0.6-1.3 N CALCIUM (test code = CA) 8.7 mg/dL 8.0-10.5 N [id number] 02:49:00* Test Item Value Reference Range Interpretation Comme nts MAGNESIUM (test code = MAG) 1.89 mg/dL 1.80-2.40 N CBC W/AUTO [id number] 02:29:00* Test Item Value Reference Range Interpretation Comme nts WHITE BLOOD CELL (test code = WBC) 10.1 x10 3/uL 4.5-11.0 N RED BLOOD CELL (test code = RBC) 3.61 x10 6/uL 4.00-5.60 L HEMOGLOBIN (test code = HGB) 11.4 g/dL 12.5-16.9 L HEMATOCRIT (test code = HCT) 34.0 % 37.5-50.7 L MEAN CELL VOLUME (test code = MCV) 94.2 fL 81.0-99.0 N MEAN CELL HGB (test code = MCH) 31.6 pg 27.0-33.0 N MEAN CELL HGB CONCETRATION (test code = MCHC) 33.5 g/dL 33.0-37.0 N RED CELL DISTRIBUTION WIDTH CV (test code = RDW) 12.8 % 11.5-14.5 N RED CELL DISTRIBUTION WIDTH SD (test code = RDW-SD) 44.3 fL 37.0-54.0 N PLATELET COUNT (test code = PLT) 261 x10 3/uL 150-400 N MEAN PLATELET VOLUME (test c ode = MPV) 9.2 fL 7.0-9.0 H NEUTROPHIL % (test code = NT%) 66.9 % 56.0-77.0 N IMMATURE GRANULOCYTE % (test code = IG%) 1.0 % 0.0-2.0 N LYMPHOCYTE % (test code = LY%) 17.6 % 14.0-32.0 N MONOCYTE % (test code = MO%) 11.5 % 4.8-9.0 H EOSINOPHIL % (test code = EO%) 2.6 % 0.3-3.7 N BASOPHIL % (test code = BA%) 0.4 % 0.0-2.0 N NUCLEATED RBC % (test code = NRBC%) 0.0 % 0-0 N NEUTROPHIL # (test code = NT#) 6.72 x10 3/uL 2.0-7.6 N IMMATURE GRANULOCYTE # (test code = IG#) 0.10 x10 3/uL 0.00-0.03 H LYMPHOCYTE # (test code = LY#) 1.77 x10 3/uL 1.0-3.8 N MONOCYTE # (test code = MO#) 1.16 x10 3/uL 0.1-0.8 H EOSINOPHIL # (test code = EO#) 0.26 x10 3/uL 0.0-0.2 H BASOPHIL # (test code = BA#) 0.04 x10 3/uL 0.0-0.2 N NUCLEATED RBC # (test code = NRBC#) 0.00 x10 3/uL 0.0-0.1 N MANUAL DIFF REQUIRED (test c ode = MDIFF) NO - DUP VEIN [id number] 00:00:00 [facility] 1970 Sex: M Name: SHEKHAR LOZADA [facility] : 1970 Age/S: 52 / M [address] [place] [address] Blvd Unit #: [id number] Loc: [place] [address] Phys: Caro Damon NP Acct: [id number] Dis Date: Status: ADM IN PHONE #: [phone] Exam Date: 01/08/2023 1551 FAX #: [phone] Reason: RULE OUTDVT EXAMS: CPT CODE: [id number] DUP VEIN ALEXY 38900 PROCEDURE INFORMATION: Exam: US Duplex Lower Extremity Veins, Bilateral Exam date and time: 01/08/2023 2:11 PM Age: 52 years old Clinical indication:Screening exam; S/P cabg; R/O dvt; Additional info: Rule out dvt TECHNIQUE: Imaging protocol: Real-time duplex ultrasound of the bilateral extremities with 2-D terry scale, color Doppler flow and spectral waveform analysis including responses to compression and other maneuvers (when performed) with image documentation. Complete exam focused on the lower extremity veins. COMPARISON: US DUP VEIN ALEXY 12/30/2022 10:10 AM FINDINGS: Right deep veins: Unremarkable. The common femoral, femoral, proximal profunda femoral and popliteal veins are patent without thrombus. Normal Doppler waveforms. Normalcompressibility and/or augmentation response. Right superficial veins: Saphenofemoral junction shows echogenic thrombus and does not compress. Left deep veins: Unremarkable. The common femoral, femoral, proximal profunda femoral and popliteal veins are patent without thrombus. Normal Doppler wavefor ms. Normal compressibility and/or augmentation response. Left superficial [...] MD; Caro Bingham NP Technologist: Sam Echevarria Trnvab Date/Time: 01/08/2023 (1656) [email or web address] Orig Print D/T: S: 01/08/2023 (165) Probe: PAGE 1 Signed Report- XR CHEST 1 [id number] 00:00:00 [facility] : 1970 Sex: M FAX: Eric Chairez [phone] [place]: St: ADM FAX: Bernie Bingham [phone] Name: SHEKHAR LOZADA [facility] : 1970 Age/S: 52/M [address] [place] [address] Unit #: [id number] Loc: G.3343 [place] [address] Phys: Caro Damon [employer]PLIANCE PROJECT MANAGER Acct: [id number] Dis Date: Status: ADM IN PHONE #: [phone] Exam Date: 01/08/2023 0813 FAX #: [phone] Reason: Cardiac Surgery Post Op EXAMS: CPT CODE: [id number] XR CHEST 1 V [id number] PROCEDURE INFORMATION: Exam: XR Chest Exam date and time: 01/08/2023 8:13 AM Age: 52 years old Clinical indication: Cardiac surgery post op TECHNIQUE: Imaging protocol: Radiologic exam of the chest. Views: 1 view. COMPARISON: CR XR CHEST 1V 01/07/2023 7:27 AM FINDINGS: Lungs: Stable left basilar opacity. Right lung remains clear. Pulmonary vasculature normal. Stable opacity above the left hilum. Pleural spaces: Possible left pleural fluid. No pleuralabnormality on the right. Heart/Mediastinum: Stable cardiomegaly. Diaphragm: Left hemidiaphragm completely obscured. Bones/joints: Sternotomy. IMPRESSION: Stable chest. at 1052 Reported and signed by: Pk Obregon M.D. CC: Eric Crabtree MD; Caro Kelly NP Technologist: Balbir Fontana; RT Julian(R) Trnscrd Date /Time/By: 01/08/2023 (704) : By: [email or web address] Orig Print D/T: S: 01/08/2023 (0608) PAGE 1 Signed ReportBASIC METABOLIC [id number] 14:06:00* Test Item Value Reference Range Interpretation Comme nts SODIUM (test code = NA) 134 mEq/L 134-147 N POTASSIUM (test code = K) 4.1 mEq/L 3.4-5.0 N CHLORIDE (test code = CL) 101 mEq/L 100-108 N CARBON DIOXIDE (test code = CO2) 27 mEq/l 21-33 N ANION GAP (test code = GAP) 10 0-20 N GLUCOSE (test code = GLU) 147 mg/dL 70-110 H BLOOD UREA NITROGEN (test code = BUN) 11 mg/dL 7-18 N GLOMERULAR FILTRATION RATE (test code = GFR) 105.8 90-95 H The Glomerular Filtration Rate is a calculated parameterbased on serum Creatinine, patient age and sex. GFR valuesless than 60 mL/min/1.73 square meters are indicative ofChronic Kidney Disease. Values less than 15 mL/min/1.73square meters indicate Kidney failure. The calculation forGFR is based on the CKD-EPI (2020) calculation. This formulais race indifferent and is the recommended formula for GFRby the National Kidney Foundation for Adults.The GFR will not calculate if the sex is unknown or if thepatient's age is <18 years. CREATININE (test code = CREAT) 0.8 mg/dL 0.6-1.3 N CALCIUM (test code = CA) 8.5 mg/dL 8.0-10.5 N [id number] 14:06:00* Test Item Value Reference Range Interpretation Comme nts MAGNESIUM (test code = MAG) 1.91 mg/dL 1.80-2.40 N CBC W/AUTO [id number] 13:46:00* Test Item Value Reference Range Interpretation Comme nts WHITE BLOOD CELL (test code = WBC) 10.3 x10 3/uL 4.5-11.0 N RED BLOOD CELL (test code = RBC) 3.78 x10 6/uL 4.00-5.60 L HEMOGLOBIN (test code = HGB) 11.8 g/dL 12.5-16.9 L HEMATOCRIT (test code = HCT) 35.9 % 37.5-50.7 L MEAN CELL VOLUME (test code = MCV) 95.0 fL 81.0-99.0 N MEAN CELL HGB (test code = MCH) 31.2 pg 27.0-33.0 N MEAN CELL HGB CONCETRATION (test code = MCHC) 32.9 g/dL 33.0-37.0 L RED CELL DISTRIBUTION WIDTH CV (test code = RDW) 13.0 % 11.5-14.5 N RED CELL DISTRIBUTION WIDTH SD (test code = RDW-SD) 44.9 fL 37.0-54.0 N PLATELET COUNT (test code = PLT) 291 x10 3/uL 150-400 MEAN PLATELET VOLUME (test c ode = MPV) 9.4 fL 7.0-9.0 H NEUTROPHIL % (test code = NT%) 66.9 % 56.0-77.0 N IMMATURE GRANULOCYTE % (test code = IG%) 0.9 % 0.0-2.0 N LYMPHOCYTE % (test code = LY%) 17.1 % 14.0-32.0 N MONOCYTE % (test code = MO%) 11.6 % 4.8-9.0 H EOSINOPHIL % (test code = EO%) 3.1 % 0.3-3.7 N BASOPHIL % (test code = BA%) 0.4 % 0.0-2.0 N NUCLEATED RBC % (test code = NRBC%) 0.0 % 0-0 N NEUTROPHIL # (test code = NT#) 6.90 x10 3/uL 2.0-7.6 N IMMATURE GRANULOCYTE # (test code = IG#) 0.09 x10 3/uL 0.00-0.03 H LYMPHOCYTE # (test code = LY#) 1.76 x10 3/uL 1.0-3.8 N MONOCYTE # (test code = MO#) 1.20 x10 3/uL 0.1-0.8 H EOSINOPHIL # (test code = EO#) 0.32 x10 3/uL 0.0-0.2 H BASOPHIL # (test code = BA#) 0.04 x10 3/uL 0.0-0.2 N NUCLEATED RBC # (test code = NRBC#) 0.00 x10 3/uL 0.0-0.1 N MANUAL DIFF REQUIRED (test c ode = MDIFF) NO - XR CHEST 1 [id number] 00:00:00 [facility] : 1970 Sex: M FAX: Eric Chairez [phone] [place]: St: [facility] FAX: Bernie Bingham [phone] Name: SHEKHAR LOZADA [facility] : 1970 Age/S: 52/M [address] [place] [address] Unit #: [id number] Loc: G.3343 [place] [address] Phys: Caro Damon [employer]UR[employer] COMPLIANCE PROJECT MANAGER Acct: [id number] Dis Date: Status: ADM IN PHONE #: [phone] Exam Date: 01/07/2023727 FAX #: [phone] Reason: Cardiac Surgery Post Op EXAMS: CPT CODE: [id number] XR CHEST 1 V 20696 PROCEDURE INFORMATION: Exam: XR Chest Exam date and time: 01/07/2023 7:27 AM Age: 52 years old Clinical indication: Other: Cardiac surgery post op TECHNIQUE: Imaging protocol: Radiologic exam of the chest. Views: 1 view. COMPARISON: CR XR CHEST 1V 01/06/2023 4:56 AM FINDINGS: Lungs: Pulmonary vasculature normal. Residual dense opacification [...] Bingham NP Technologist: Balbir Fontana; RT Julian(R) Trn scrd Date/Time/By: 01/07/2023 (906) : By: [email or web address] Orig Print D/T: S: 01/07/2023 (906) PAGE 1 Signed ReportVER[facility]ONT [facility] ARTERIAL BLOOD [id number] 08:15:00 * Test Item Value Reference Range Interpretation Comme nts POC ARTERIAL BLOOD GAS PH (t est code = POCPHA) 7.408 7.35-7.45 N POC ARTERIAL BLOOD GAS PCO2 (test code = COTVQY6R) 40.3 mmHg 35.0-45 N POC TCO2 ARTERIAL (test code = POCTCO2) 26.4 POC ARTERIAL BLOOD GAS PO2 ( test code = SSTJL4H) 188.4 mmHg 80-100.0 H POC HCO3 ARTERIAL (test code = OATYNF7J) 25.2 MMOL/L 22.0-26.0 N POC BASE EXCESS (test code = POCBEA) 0.7 MMOL/L -4.0-4.0 N POC O2 SATURATION (test code = POCO2S) 99.6 % 90-100 N FIO2 (test code = FIO2A) 36 % PaO2/FiO2 (test code = THS1XOS6) 523.33 mm/Hg ABG DELIVERY (test code = REBA) Cannula ABG TEMPERATURE (test code = TEMPA) 100.4 F ABG SITE (test code = SITEA) Art Line BASIC METABOLIC [id number] 08:15:00* Test Item Value Reference Range Interpretation Comme nts SODIUM (test code = NA/ABG) 136 mmol/L 134-147 N POTASSIUM (test code = K/ABG) 3.5 mmol/L 3.4-5.0 N CHLORIDE (test code = CL/ABG) 99 mmol/L 100-108 L CREATININE ABG (test code = CREAABG) 0.5 mg/dL 0.8-1.3 L POC IONIZED CALCIUM (test co de = POCCA) 1.14 MMOL/L 1.12-1.32 N POC GLUCOSE (test code = POCGLU) 171 MG/DL 70-110 H HEMOGLOBIN [id number] 08:15:00* Test Item Value Reference Range Interpretation Comme nts HEMOGLOBIN ABG (test code = HGB/ABG) 8.4 G/DL 12.5-16.9 L [id number] 08:15:00* Test Item Value Reference Range Interpretation Comme nts HEMATOCRIT (test code = HCT/ABG) 25 % 37.5-50.7 L POC LACTIC [id number] 08:15:00* Test Item Value Reference Range Interpretation Comme nts POC LACTIC ACID (test code = POCLAC) 2.4 mmol/l 0.9-1.7 H POC ARTERIAL BLOOD [id number] 04:01:00* Test Item Value Reference Range Interpretation Comme nts POC ARTERIAL BLOOD GAS PH (t est code = POCPHA) 7.423 7.35-7.45 N POC ARTERIAL BLOOD GAS PCO2 (test code = ZLCJQL1P) 43.6 mmHg 35.0-45 N POC TCO2 ARTERIAL (test code = POCTCO2) 29.8 POC ARTERIAL BLOOD GAS PO2 ( test code = QXMCF6F) 69.1 mmHg 80-100.0 L POC HCO3 ARTERIAL (test code = WLZSEM7M) 28.5 MMOL/L 22.0-26.0 HH POC BASE EXCESS (test code = POCBEA) 4.1 MMOL/L -4.0-4.0 H POC O2 SATURATION (test code = POCO2S) 93.8 % 90-100 N ABG DELIVERY (test code = REBA) Cannula ABG SITE (test code = SITEA) R Radial MICHAEL'S TEST (test code = ALLENS) Positive BASIC METABOLIC [id number] 03:26:00* Test Item Value Reference Range Interpretation Comme nts SODIUM (test code = NA) 139 mEq/L 134-147 N POTASSIUM (test code = K) 4.2 mEq/L 3.4-5.0 N CHLORIDE (test code = CL) 105 mEq/L 100-108 N CARBON DIOXIDE (test code = CO2) 28 mEq/l 21-33 N ANION GAP (test code = GAP) 10 0-20 N GLUCOSE (test code = GLU) 137 mg/dL 70-110 H BLOOD UREA NITROGEN (test code = BUN) 14 mg/dL 7-18 N GLOMERULAR FILTRATION RATE (test code = GFR) 105.8 90-95 H The Glomerular Filtration Rate is a calculated parameterbased on serum Creatinine, patient age and sex. GFR valuesless than 60 mL/min/1.73 square meters are indicative ofChronic Kidney Disease. Values less than 15 mL/min/1.73square meters indicate Kidney failure. The calculation forGFR is based on the CKD-EPI (2020) calculation. This formulais race indifferent and is the recommended formula for GFRby the National Kidney Foundation for Adults.The GFR will not calculate if the sex is unknown or if thepatient's age is <18 years. CREATININE (test code = CREAT) 0.8 mg/dL 0.6-1.3 N CALCIUM (test code = CA) 8.3 mg/dL 8.0-10.5 N [id number] 03:26:00* Test Item Value Reference Range Interpretation Comme nts MAGNESIUM (test code = MAG) 2.03 mg/dL 1.80-2.40 N CBC W/AUTO [id number] 03:09:00* Test Item Value Reference Range Interpretation Comme nts WHITE BLOOD CELL (test code = WBC) 10.1 x10 3/uL 4.5-11.0 N RED BLOOD CELL (test code = RBC) 3.37 x10 6/uL 4.00-5.60 L HEMOGLOBIN (test code = HGB) 10.7 g/dL 12.5-16.9 L HEMATOCRIT (test code = HCT) 32.1 % 37.5-50.7 L MEAN CELL VOLUME (test code = MCV) 95.3 fL 81.0-99.0 N MEAN CELL HGB (test code = MCH) 31.8 pg 27.0-33.0 N MEAN CELL HGB CONCETRATION (test code = MCHC) 33.3 g/dL 33.0-37.0 N RED CELL DISTRIBUTION WIDTH CV (test code = RDW) 13.2 % 11.5-14.5 N RED CELL DISTRIBUTION WIDTH SD (test code = RDW-SD) 45.2 fL 37.0-54.0 N PLATELET COUNT (test code = PLT) 167 x10 3/uL 150-400 N MEAN PLATELET VOLUME (test c ode = MPV) 10.1 fL 7.0-9.0 H NEUTROPHIL % (test code = NT%) 69.0 % 56.0-77.0 N IMMATURE GRANULOCYTE % (test code = IG%) 0.8 % 0.0-2.0 N LYMPHOCYTE % (test code = LY%) 15.8 % 14.0-32.0 N MONOCYTE % (test code = MO%) 12.4 % 4.8-9.0 H EOSINOPHIL % (test code = EO%) 1.7 % 0.3-3.7 N BASOPHIL % (test code = BA%) 0.3 % 0.0-2.0 N NUCLEATED RBC % (test code = NRBC%) 0.0 % 0-0 N NEUTROPHIL # (test code = NT#) 6.98 x10 3/uL 2.0-7.6 N IMMATURE GRANULOCYTE # (test code = IG#) 0.08 x10 3/uL 0.00-0.03 H LYMPHOCYTE # (test code = LY#) 1.60 x10 3/uL 1.0-3.8 N MONOCYTE # (test code = MO#) 1.25 x10 3/uL 0.1-0.8 H EOSINOPHIL # (test code = EO#) 0.17 x10 3/uL 0.0-0.2 N BASOPHIL # (test code = BA#) 0.03 x10 3/uL 0.0-0.2 N NUCLEATED RBC # (test code = NRBC#) 0.00 x10 3/uL 0.0-0.1 N MANUAL DIFF REQUIRED (test c ode = MDIFF) NO COMMENTS: Daily while on Heparin- XR CHEST 1 [id number] 00:00:00 [facility] : 1970 Sex: M FAX: Eric Chairez [phone] [place]: St: [facility] FAX: Bernie Bingham [phone] Name: SHEKHAR LOZADA [facility] : 1970 Age/S: 52/M [address] [place] [address] Unit #: [id number] Loc: [place] [address] Phys: Caro Damon [employer]URITY [employer] COMPLIANCE PROJECT MANAGER Acct: [id number] Dis Date: Status: ADM IN PHONE #: [phone] Exam Date: 01/06/2023457 FAX #: [phone] Reason: Cardiac Surgery Post Op EXAMS: CPT CODE: [id number] XR CHEST 1 V [id number] PROCEDURE INFORMATION: Exam: XR Chest Exam date [...] Diaphragm: Left diaphragm completely obscured. Medial right diaphragmalso obscured. Right hemidiaphragm now more clearly delineated. Bones/joints: Sternotomy. IMPRESSION: 1. Improvement of bilateral upper lobe and right basilar opacity since the most recent exam. 2. Dense opacification of the left lung base, mildly increased. at 0805 Reported and signed by: Pk Obregon M.D. CC: Eric Crabtree MD; Caro Bingham NP Technologist: RT Eric(R) Trnscrd Date/Time/By: 01/06/2023 (804) : By: [email or web address] Orig Print D/T: S: 01/06/2023 (804) PAGE 1 Signed ReportVERMONT [facility] ARTERIAL BLOOD [id number] 03:57:00* Test Item Value Reference Range Interpretation Comme nts POC ARTERIAL BLOOD GAS PH (t est code = POCPHA) 7.424 7.35-7.45 N POC ARTERIAL BLOOD GAS PCO2 (test code = LSEVTK1N) 45.1 mmHg 35.0-45 H POC TCO2 ARTERIAL (test code = POCTCO2) 30.9 POC ARTERIAL BLOOD GAS PO2 ( test code = KOLNY0V) 65.2 mmHg 80-100.0 L POC HCO3 ARTERIAL (test code = BTJAZU4J) 29.5 MMOL/L 22.0-26.0 HH POC BASE EXCESS (test code = POCBEA) 5.1 MMOL/L -4.0-4.0 H POC O2 SATURATION (test code = POCO2S) 92.7 % 90-100 N ABG DELIVERY (test code = REBA) Cannula ABG SITE (test code = SITEA) R Radial MICHAEL'S TEST (test code = ALLENS) Positive CBC W/AUTO [id number] 03:31:00* Test Item Value Reference Range Interpretation Comme nts WHITE BLOOD CELL (test code = WBC) 11.7 x10 3/uL 4.5-11.0 H RED BLOOD CELL (test code = RBC) 3.40 x10 6/uL 4.00-5.60 L HEMOGLOBIN (test code = HGB) 10.8 g/dL 12.5-16.9 L HEMATOCRIT (test code = HCT) 32.4 % 37.5-50.7 L MEAN CELL VOLUME (test code = MCV) 95.3 fL 81.0-99.0 N MEAN CELL HGB (test code = MCH) 31.8 pg 27.0-33.0 N MEAN CELL HGB CONCETRATION (test code = MCHC) 33.3 g/dL 33.0-37.0 N RED CELL DISTRIBUTION WIDTH CV (test code = RDW) 13.2 % 11.5-14.5 N RED CELL DISTRIBUTION WIDTH SD (test code = RDW-SD) 46.0 fL 37.0-54.0 N PLATELET COUNT (test code = PLT) 139 x10 3/uL 150-400 L MEAN PLATELET VOLUME (test c ode = MPV) 10.0 fL 7.0-9.0 H NEUTROPHIL % (test code = NT%) 74.7 % 56.0-77.0 N IMMATURE GRANULOCYTE % (test code = IG%) 0.6 % 0.0-2.0 N LYMPHOCYTE % (test code = LY%) 11.4 % 14.0-32.0 L MONOCYTE % (test code = MO%) 12.8 % 4.8-9.0 H EOSINOPHIL % (test code = EO%) 0.3 % 0.3-3.7 N BASOPHIL % (test code = BA%) 0.2 % 0.0-2.0 N NUCLEATED RBC % (test code = NRBC%) 0.0 % 0-0 N NEUTROPHIL # (test code = NT#) 8.74 x10 3/uL 2.0-7.6 H IMMATURE GRANULOCYTE # (test code = IG#) 0.07 x10 3/uL 0.00-0.03 H LYMPHOCYTE # (test code = LY#) 1.33 x10 3/uL 1.0-3.8 N MONOCYTE # (test code = MO#) 1.50 x10 3/uL 0.1-0.8 H EOSINOPHIL # (test code = EO#) 0.03 x10 3/uL 0.0-0.2 N BASOPHIL # (test code = BA#) 0.02 x10 3/uL 0.0-0.2 N NUCLEATED RBC # (test code = NRBC#) 0.00 x10 3/uL 0.0-0.1 N MANUAL DIFF REQUIRED (test c ode = MDIFF) NO COMMENTS: Daily while on HeparinBASIC METABOLIC [id number] 03:28:00* Test Item Value Reference Range Interpretation Comme nts SODIUM (test code = NA) 136 mEq/L 134-147 N POTASSIUM (test code = K) 4.5 mEq/L 3.4-5.0 N CHLORIDE (test code = CL) 103 mEq/L 100-108 N CARBON DIOXIDE (test code = CO2) 29 mEq/l 21-33 N ANION GAP (test code = GAP) 9 0-20 N GLUCOSE (test code = GLU) 143 mg/dL 70-110 H BLOOD UREA NITROGEN (test code = BUN) 16 mg/dL 7-18 N GLOMERULAR FILTRATION RATE (test code = GFR) 105.8 90-95 H The Glomerular Filtration Rate is a calculated parameterbased on serum Creatinine, patient age and sex. GFR valuesless than 60 mL/min/1.73 square meters are indicative ofChronic Kidney Disease. Values less than 15 mL/min/1.73square meters indicate Kidney failure. The calculation forGFR is based on the CKD-EPI (202) calculation. This formulais race indifferent and is the recommended formula for GFRby the National Kidney Foundation for Adults.The GFR will not calculate if the sex is unknown or if thepatient's age is <18 years. CREATININE (test code = CREAT) 0.8 mg/dL 0.6-1.3 N CALCIUM (test code = CA) 8.4 mg/dL 8.0-10.5 N COMMENTS: POD #1HEPATIC FUNCTION [id number] 03:28:00* Test Item Value Reference Range Interpretation Comme nts TOTAL PROTEIN (test code = PROT) 5.6 g/dL 6.4-8.2 L ALBUMIN (test code = ALB) 3.20 g/dL 3.4-5.0 L BILIRUBIN TOTAL (test code = BILT) 0.90 mg/dL 0.0-1.0 BILIRUBIN DIRECT (test code = BILD) 0.40 MG/DL 0.0-0.30 H BILIRUBIN INDIRECT (test cod e = BILIND) 0.50 MG/DL SGOT/AST (test code = AST) 36 IUnit/L 15-37 N SGPT/ALT (test code = ALT) 25 IUnit/L 30-65 L ALKALINE PHOSPHATASE TOTAL ( test code = ALKP) 60 IUnit/L 20-125 N COMMENTS: POD #[id number] 03:28:00* Test Item Value Reference Range Interpretation Comme nts MAGNESIUM (test code = MAG) 2.25 mg/dL 1.80-2.40 N COMMENTS: POD #1- XR CHEST 1 [id number] 00:00:00 [facility] : 1970 Sex: M FAX: Eric Chairez [phone] [place]: St: [facility] FAX: Bernie Bingham [phone] Name: SHEKHAR LOZADA [facility] Subha Nicolas : 1970 Age/S: 52/M [address] [place] [address] Bl Unit #: [id number] Loc: [address] [place] [id number] Phys: Caro Damon [employer]URITY [employer] COMPLIANCE PROJECT MANAGER Acct: [id number] Dis Date: Status: ADM IN PHONE #: [phone] Exam Date: 01/05/2023 0700 FAX #: [phone] Reason: Cardiac Surgery Post Op Report Has Been Amended EXAMS: CPT CODE: [id number] XR CHEST 1 V [id number] Addendum - 01/05/2023 SIGNED 01/05/2023 ADDENDUM: [id number] RAD/CXR1 Findings of possible small left pneumothorax were discussed with Dr. Esparza by phone at 01/05/2023 8:18 AM CDT. Electronically Signed by Evangelina Joseph 01/05/2023 at 0819 Reported and signed by: Hilario Bentley M.D. Report PROCEDURE INFORMATION: Exam: XR Chest Exam date and time: 01/05/2023 5:04 AM Age: 52 years old Clinical indication: Other: Cardiac surgery post op TECHNIQUE: Imaging protocol: Radiologic exam of the chest. Views: 1 view. COMP ARISON: CR XR CHEST 1V 01/04/2023 4:59 AM FINDINGS: Tubes, catheters [...] Removal of left chest tube. Suspected small left pneumothorax involving 10% volume. 3. Removal of the right IJ central line. PAGE 1 Signed Report (CONTINUED) FAX: Billy Chairez [phone] [place]: St: ADM FAX: Bernie Bingham [phone] Name: SHEKHAR LOZADA [facility] : 1970 Age/S: 52/M [address] [place] [address] Blvd Unit #: [id number] Loc: [address] [address] Phys: Caro Damon SECURITY AND COMPLIANCE PROJECT MANAGER Acct: [id number] Dis Date: Status: ADM IN PHONE #: [phone] Exam Date: 01/05/2023 0700 FAX #: [phone] Reason: Cardiac Surgery Post Op Report Has Been Amended EXAMS: CPT CODE: [id number] XR CHEST 1 V [id number] (Continued) at 0817 Reported and signed by: Hilario Bentley M.D. CC: Eric Crabtree MD; Caro Bingham NP Technologist: RT Waylon(Ralph) Trnscrd Date/Time/By: 01/05/2023 (08) : By: [email or web address] [facility] Print D/T: S: 01/05/2023 (0817) PAGE 2 Signed ReportGLUCOSE [id number] 20:05:00* Test Item Value Reference Range Interpretation Comme nts GLUCOSE BEDSIDE (test code = GLUBED) 151 MG/DL 70-110 H Performed by cer tified hat brim and crown laminating operator at [facility] GLUCOSE [id number] 17:25:00* Test Item Value Reference Range Interpretation Comme nts GLUCOSE BEDSIDE (test code = GLUBED) 143 MG/DL 70-110 H Performed by [facility] tified hat brim and crown laminating operator at [facility] BASIC METABOLIC [id number] 14:57:00* Test Item Value Reference Range Interpretation Comme nts SODIUM (test code = NA) 134 mEq/L 134-147 N POTASSIUM (test code = K) 4.4 mEq/L 3.4-5.0 N CHLORIDE (test code = CL) 103 mEq/L 100-108 N CARBON DIOXIDE (test code = CO2) 27 mEq/l 21-33 N ANION GAP (test code = GAP) 8 0-20 N GLUCOSE (test code = GLU) 146 mg/dL 70-110 H BLOOD UREA NITROGEN (test code = BUN) 17 mg/dL 7-18 N GLOMERULAR FILTRATION RATE (test code = GFR) 102.1 90-95 H The Glomerular Filtration Rate is a calculated parameterbased on serum Creatinine, patient age and sex. GFR valuesless than 60 mL/min/1.73 square meters are indicative ofChronic Kidney Disease. Values less than 15 mL/min/1.73square meters indicate Kidney failure. The calculation forGFR is based on the CKD-EPI (2020) calculation. This formulais race indifferent and is the recommended formula for GFRby the National Kidney Foundation for Adults.The GFR will not calculate if the sex is unknown or if thepatient's age is <18 years. CREATININE (test code = CREAT) 0.9 mg/dL 0.6-1.3 N CALCIUM (test code = CA) 7.6 mg/dL 8.0-10.5 L [id number] 13:47:00* Test Item Value Reference Range Interpretation Comme [facility] SURGICAL (test code = SR) R UN DATE: 01/04/23 [place] - LAB PAGE 1 RUN TIME: 1347 Specimen Inquiry RUN USER: INTERFACE P ATIENT: SHEKHAR LOZADA LOC: [facility] U #: [id number] AGE/SX: 52/M ROOM: [facility] [place] RE12/30[facility]22REG DR: Eric Crabtree : 68 BED: 1 DIS: STATUS: ADM IN TLOC: SPEC #: [id number] RECD: 01/03/23 STATUS: [facility] #: [id number] RAMY: 01/02/23- [facility] DR: Eric Crabtree MD ENTERED: 01/03/23 SP TYPE: SURGICAL OTHR DR: Milagros Arndt MD, Anas MD Pillai, Regina MDORDERED: 63916, ANATOMIC SPEC COPIES TO: Milagros Arndt MD [address] [place] [address] Eric Crabtree MD [address] [facility] [address] [place] [address] Mick Resendiz MD [address] [place] [address] Rupinder Marcus MD [address] [address] PROCEDURES: 00093 (01/03/23) TISSUES: A. ATRIUM - LEFT ATRIAL APPENDAGE FINAL DIAGNOSIS Heart, left atrial appendage, submitted: Cardiac muscle with some degenerative changes,consistent with atrial appendage. GROSS DESCRIPTION Received in formalin labeled left atrial appendage is a 3 x 2 x 1 cm portion of musculartissue with attached adipose submitted (A). Technical component performed at [facility],[address] [place] [address], [place] [address] CONTINUED ON NEXT PAGE R UN DATE: 01/04/23 [place] - LAB PAGE 2 RUN TIME: 1347 Specimen Inquiry RUN USER: INTERFACE S PEC #: [id number] PATIENT: SHEKHAR LOZADA #[id number] (Continued) GROSS DESCRIPTION (Continued) Unless gross only, [...] complexity clinical laboratory testing. ------- Signed _ VasylShekhar 01/04/23 1347 END OF REPORT GLUCOSE [id number] 12:00:00* Test Item Value Reference Range Interpretation Comme [facility] GLUCOSE BEDSIDE (test code = GLUBED) 145 MG/DL 70-110 H Performed by [employer] hat brim and crown laminating operator at [facility] GLUCOSE [id number] 08:04:00* Test Item Value Reference Range Interpretation Comme [facility] GLUCOSE BEDSIDE (test code = GLUBED) 177 MG/DL 70-110 H Performed by [employer] hat brim and crown laminating operator at [facility] BASIC METABOLIC [id number] 04:58:00* Test Item Value Reference Range Interpretation Comme [facility] SODIUM (test code = NA) 136 mEq/L 134-147 N POTASSIUM (test code = K) 4.6 mEq/L 3.4-5.0 N CHLORIDE (test code = CL) 103 mEq/L 100-108 N CARBON DIOXIDE (test code = CO2) 26 mEq/l 21-33 N ANION GAP (test code = GAP) 12 0-20 N GLUCOSE (test code = GLU) 171 mg/dL 70-110 H BLOOD UREA NITROGEN (test code = BUN) 22 mg/dL 7-18 H GLOMERULAR FILTRATION RATE (test code = GFR) 80.3 90-95 L The Glomerular Filtration Rate is a calculated parameterbased on serum Creatinine, patient age and sex. GFR valuesless than 60 mL/min/1.73 square meters are indicative ofChronic Kidney Disease. Values less than 15 mL/min/1.73square meters indicate Kidney failure. The calculation forGFR is based on the CKD-EPI (202) calculation. This formulais race indifferent and is the recommended formula for GFRby the National Kidney Foundation for Adults.The GFR will not calculate if the sex is unknown or if thepatient's age is <18 years. CREATININE (test code = CREAT) 1.1 mg/dL 0.6-1.3 N CALCIUM (test code = CA) 8.1 mg/dL 8.0-10.5 N COMMENTS: POD #1HEPATIC FUNCTION [id number] 04:58:00* Test Item Value Reference Range Interpretation Comme nts TOTAL PROTEIN (test code = PROT) 6.2 g/dL 6.4-8.2 L ALBUMIN (test code = ALB) 3.70 g/dL 3.4-5.0 N BILIRUBIN TOTAL (test code = BILT) 1.30 mg/dL 0.0-1.0 H BILIRUBIN DIRECT (test code = BILD) 0.60 MG/DL 0.0-0.30 H BILIRUBIN INDIRECT (test cod e = BILIND) 0.70 MG/DL SGOT/AST (test code = AST) 47 IUnit/L 15-37 H SGPT/ALT (test code = ALT) 39 IUnit/L 30-65 N ALKALINE PHOSPHATASE TOTAL ( test code = ALKP) 63 IUnit/L 20-125 N COMMENTS: POD #[id number] 04:58:00* Test Item Value Reference Range Interpretation Comme nts MAGNESIUM (test code = MAG) 2.43 mg/dL 1.80-2.40 H COMMENTS: POD #1CBC W/AUTO [id number] 04:51:00* Test Item Value Reference Range Interpretation Comme nts WHITE BLOOD CELL (test code = WBC) 18.0 x10 3/uL 4.5-11.0 H RED BLOOD CELL (test code = RBC) 3.73 x10 6/uL 4.00-5.60 L HEMOGLOBIN (test code = HGB) 12.0 g/dL 12.5-16.9 L HEMATOCRIT (test code = HCT) 35.3 % 37.5-50.7 L MEAN CELL VOLUME (test code = MCV) 94.6 fL 81.0-99.0 N MEAN CELL HGB (test code = MCH) 32.2 pg 27.0-33.0 N MEAN CELL HGB CONCETRATION (test code = MCHC) 34.0 g/dL 33.0-37.0 N RED CELL DISTRIBUTION WIDTH CV (test code = RDW) 13.5 % 11.5-14.5 N RED CELL DISTRIBUTION WIDTH SD (test code = RDW-SD) 47.4 fL 37.0-54.0 N PLATELET COUNT (test code = PLT) 166 x10 3/uL 150-400 N MEAN PLATELET VOLUME (test code = MPV) 10.2 fL 7.0-9.0 H NEUTROPHIL % (test code = NT%) 79.7 % 56.0-77.0 H IMMATURE GRANULOCYTE % (test code = IG%) 0.7 % 0.0-2.0 N LYMPHOCYTE % (test code = LY%) 7.9 % 14.0-32.0 L MONOCYTE % (test code = MO%) 11.6 % 4.8-9.0 H EOSINOPHIL % (test code = EO%) 0.0 % 0.3-3.7 L BASOPHIL % (test code = BA%) 0.1 % 0.0-2.0 N NUCLEATED RBC % (test code = NRBC%) 0.0 % 0-0 N NEUTROPHIL # (test code = NT#) 14.29 x10 3/uL 2.0-7.6 H IMMATURE GRANULOCYTE # (test code = IG#) 0.13 x10 3/uL 0.00-0.03 H LYMPHOCYTE # (test code = LY#) 1.42 x10 3/uL 1.0-3.8 N MONOCYTE # (test code = MO#) 2.09 x10 3/uL 0.1-0.8 H EOSINOPHIL # (test code = EO#) 0.00 x10 3/uL 0.0-0.2 N BASOPHIL # (test code = BA#) 0.02 x10 3/uL 0.0-0.2 N NUCLEATED RBC # (test code = NRBC#) 0.00 x10 3/uL 0.0-0.1 N MANUAL DIFF REQUIRED (test code = MDIFF) NO COMMENTS: Daily while on HeparinPOC ARTERIAL BLOOD [id number] 01:27:00* Test Item Value Reference Range Interpretation Comme nts POC ARTERIAL BLOOD GAS PH (t est code = POCPHA) 7.382 7.35-7.45 N POC ARTERIAL BLOOD GAS PCO2 (test code = XORVNV9V) 43.0 mmHg 35.0-45 N POC TCO2 ARTERIAL (test code = POCTCO2) 26.5 POC ARTERIAL BLOOD GAS PO2 ( test code = MNUJS5U) 80.7 mmHg 80-100.0 N POC HCO3 ARTERIAL (test code = RUNGDE1G) 25.2 MMOL/L 22.0-26.0 N POC BASE EXCESS (test code = POCBEA) 0.4 MMOL/L -4.0-4.0 N POC O2 SATURATION (test code = POCO2S) 94.6 % 90-100 N FIO2 (test code = FIO2A) 32 % PaO2/FiO2 (test code = LRX0SNY8) 252.18 mm/Hg ABG DELIVERY (test code = REBA) Cannula ABG TEMPERATURE (test code = TEMPA) 101 F ABG SITE (test code = SITEA) Art Line MICHAEL'S TEST (test code = ALLENS) N/A BASIC METABOLIC [id number] 01:27:00* Test Item Value Reference Range Interpretation Comme nts SODIUM (test code = NA/ABG) 135 mmol/L 134-147 N POTASSIUM (test code = K/ABG) 4.6 mmol/L 3.4-5.0 N CHLORIDE (test code = CL/ABG) 100 mmol/L 100-108 N CREATININE ABG (test code = CREAABG) 1.2 mg/dL 0.8-1.3 N POC IONIZED CALCIUM (test co de = POCCA) 1.09 MMOL/L 1.12-1.32 L POC GLUCOSE (test code = POCGLU) 167 MG/DL 70-110 H HEMOGLOBIN [id number] 01:27:00* Test Item Value Reference Range Interpretation Comme nts HEMOGLOBIN ABG (test code = HGB/ABG) 13.1 G/DL 12.5-16.9 N [id number] 01:27:00* Test Item Value Reference Range Interpretation Comme nts HEMATOCRIT (test code = HCT/ABG) 39 % 37.5-50.7 N POC LACTIC [id number] 01:27:00* Test Item Value Reference Range Interpretation Comme nts POC LACTIC ACID (test code = POCLAC) 1.1 mmol/l 0.9-1.7 N - XR CHEST 1 [id number] 00:00:00 [facility] 1970 Sex: M FAX: Eric Chairez [phone] [place]: St: ADM FAX: Malik Molina MD [phone] Name: SHEKHAR LOZADA [facility] : 1970 Age/S: 52/M [address] [place] [address] Unit #: [id number] Loc: G.[address] [place] [address] Phys: Malik Thomas MD Acct: [id number] Dis Date: Status: ADM IN PHONE #: [phone] Exam Date: 01/04/2023200 FAX #: [phone] Reason: INCREASED SOB/INCREASED RESP.EFFORT CHEST PA EXAMS: CPT CODE: [id number] XR CHEST 1 V 09381 PROCEDURE INFORMATION: Exam: XR Chest Exam date [...] left pleural effusion. No pneumothorax. Heart/Mediastinum: Heart sizeis stable. Bones/joints: Median sternotomy. IMPRESSION: Moderately diminished lung volumes with perihilar and medial basilar opacities favored to reflect atelectasis. Superimposed pneumonia or edema not excluded. at 0206 Reported and signed by: Abraham Wallace M.D. CC: Eric Crabtree MD; Malik Thomas MD Technologist: DELIA Terjo) Trnscrd Date/Time/By: 01/04/2023 (0206) : By: [email or web address] Orig Print D/T: S: 01/04/2023 (0206) PAGE 1 Signed Report- XR CHEST 1 [id number] 00:00:00 [facility] 1970 Sex: M FAX: Eric Chairez [phone] [place]: St: [facility] FAX: Bernie Bingham [phone] Name: SHEKHAR LOZADA [facility] [place] : 1970 Age/S: 52/M [address] [place] [address] Blvd Unit #: [id number] Loc: G.[address] [place] [address] Phys: Caro Damon [employer]URITY [employer] COMPLIANCE PROJECT MANAGER Acct: [id number] Dis Date: Status: ADM IN PHONE #: [phone] Exam Date: 01/04/2023 0500 FAX #: [phone] Reason: Cardiac Surgery Post Op EXAMS: CPT CODE: [id number] XR CHEST 1 V 58579 PROCEDURE INFORMATION: Exam: XR Chest Exam date and time: 01/04/2023 4:59 AM Age: 52 years old Clinical indication: Other: Cardiac surgery post op TECHNIQUE: Imaging protocol: Radiologic exam of the chest. Views: 1 view. COMPARISON: CR XR CHEST 1V 01/04/2023 1:45 AM FINDINGS: Tubes, catheters and devices: Stable lines and tubes. Lungs: The bilateral lung opacities are grossly stable. Low lung volumes. Pleural spaces: Question small left pleural effusion. No definite pneumothorax. Heart/Mediastinum: The heart size is stable. Bones/joints: Stable. Median sternotomy wires. IMPRESSION: Grossly stable exam. Electronically Signed by Evangelina Joseph 01/04/2023 at 0825 Reported and signed by: Hilario Bentley M.D. CC: Eric Crabtree MD; Caro Bingham NP Technologist: RT Eric(R) Trnscrd Date/Time/By: 01/04/2023 (9989) : By: [email or web address] Orig Print D/T: S: 01/04/2023 (9379) PAGE 1 Signed ReportBASIC METABOLIC PANEL 2023-01-03 21:05:00* Test Item Value Reference Range Interpretation Comme nts SODIUM (test code = NA) 135 mEq/L 134-147 N POTASSIUM (test code = K) 4.6 mEq/L 3.4-5.0 N CHLORIDE (test code = CL) 103 mEq/L 100-108 N CARBON DIOXIDE (test code = CO2) 26 mEq/l 21-33 N ANION GAP (test code = GAP) 11 0-20 N GLUCOSE (test code = GLU) 150 mg/dL 70-110 H BLOOD UREA NITROGEN (test code = BUN) 21 mg/dL 7-18 H GLOMERULAR FILTRATION RATE (test code = GFR) 72.3 90-95 L The Glomerular Filtration Rate is a calculated parameterbased on serum Creatinine, patient age and sex. GFR valuesless than 60 mL/min/1.73 square meters are indicative ofChronic Kidney Disease. Values less than 15 mL/min/1.73square meters indicate Kidney failure. The calculation forGFR is based on the CKD-EPI (2020) calculation. This formulais race indifferent and is the recommended formula for GFRby the National Kidney Foundation for Adults.The GFR will not calculate if the sex is unknown or if thepatient's age is <18 years. CREATININE (test code = CREAT) 1.2 mg/dL 0.6-1.3 N CALCIUM (test code = CA) 7.8 mg/dL 8.0-10.5 L [id number] 21:05:00* Test Item Value Reference Range Interpretation Comme nts MAGNESIUM (test code = MAG) 2.55 mg/dL 1.80-2.40 H POC ARTERIAL BLOOD [id number] 16:07:00* Test Item Value Reference Range Interpretation Comme nts POC ARTERIAL BLOOD GAS PH (t est code = POCPHA) 7.337 7.35-7.45 L POC ARTERIAL BLOOD GAS PCO2 (test code = CKGSKC5D) 44.6 mmHg 35.0-45 N POC TCO2 ARTERIAL (test code = POCTCO2) 25.5 POC ARTERIAL BLOOD GAS PO2 ( test code = AGROA2H) 72.4 mmHg 80-100.0 L POC HCO3 ARTERIAL (test code = PWIQAX9L) 24.1 MMOL/L 22.0-26.0 N POC BASE EXCESS (test code = POCBEA) -1.9 MMOL/L -4.0-4.0 N POC O2 SATURATION (test code = POCO2S) 93.6 % 90-100 N ABG DELIVERY (test code = REBA) Cannula ABG TEMPERATURE (test code = TEMPA) 97.8 F ABG SITE (test code = SITEA) Art Line MICHAEL'S TEST (test code = ALLENS) N/A BASIC METABOLIC [id number] 16:07:00* Test Item Value Reference Range Interpretation Comme nts SODIUM (test code = NA/ABG) 133 mmol/L 134-147 L POTASSIUM (test code = K/ABG) 5.2 mmol/L 3.4-5.0 H CHLORIDE (test code = CL/ABG) 100 mmol/L 100-108 N CREATININE ABG (test code = CREAABG) 1.4 mg/dL 0.8-1.3 H POC IONIZED CALCIUM (test co de = POCCA) 1.09 MMOL/L 1.12-1.32 L POC GLUCOSE (test code = POCGLU) 211 MG/DL 70-110 H HEMOGLOBIN [id number] 16:07:00* Test Item Value Reference Range Interpretation Comme nts HEMOGLOBIN ABG (test code = HGB/ABG) 12.8 G/DL 12.5-16.9 N [id number] 16:07:00* Test Item Value Reference Range Interpretation Comme nts HEMATOCRIT (test code = HCT/ABG) 38 % 37.5-50.7 N POC LACTIC [id number] 16:07:00* Test Item Value Reference Range Interpretation Comme nts POC LACTIC ACID (test code = POCLAC) 1.6 mmol/l 0.9-1.7 N BASIC METABOLIC [id number] 13:15:00* Test Item Value Reference Range Interpretation Comme nts SODIUM (test code = NA) 136 mEq/L 134-147 N POTASSIUM (test code = K) 5.2 mEq/L 3.4-5.0 H CHLORIDE (test code = CL) 106 mEq/L 100-108 N CARBON DIOXIDE (test code = CO2) 23 mEq/l 21-33 N ANION GAP (test code = GAP) 12 0-20 N GLUCOSE (test code = GLU) 176 mg/dL 70-110 H BLOOD UREA NITROGEN (test code = BUN) 17 mg/dL 7-18 GLOMERULAR FILTRATION RATE (test code = GFR) 55.3 90-95 L The Glomerular Filtration Rate is a calculated parameterbased on serum Creatinine, patient age and sex. GFR valuesless than 60 mL/min/1.73 square meters are indicative ofChronic Kidney Disease. Values less than 15 mL/min/1.73square meters indicate Kidney failure. The calculation forGFR is based on the CKD-EPI (202) calculation. This formulais race indifferent and is the recommended formula for GFRby the National Kidney Foundation for Adults.The GFR will not calculate if the sex is unknown or if thepatient's age is <18 years. CREATININE (test code = CREAT) 1.5 mg/dL 0.6-1.3 H CALCIUM (test code = CA) 7.9 mg/dL 8.0-10.5 L [id number] 13:15:00* Test Item Value Reference Range Interpretation Comme nts MAGNESIUM (test code = MAG) 2.51 mg/dL 1.80-2.40 H GLUCOSE [id number] 07:37:00* Test Item Value Reference Range Interpretation Comme nts GLUCOSE BEDSIDE (test code = GLUBED) 136 MG/DL 70-110 H Performed by cer phongied hat brim and crown laminating operator at [facility] CBC W/AUTO [id number] 05:09:00* Test Item Value Reference Range Interpretation Comme nts WHITE BLOOD CELL (test code = WBC) 15.2 x10 3/uL 4.5-11.0 H RED BLOOD CELL (test code = RBC) 4.07 x10 6/uL 4.00-5.60 N HEMOGLOBIN (test code = HGB) 12.9 g/dL 12.5-16.9 N HEMATOCRIT (test code = HCT) 38.7 % 37.5-50.7 N MEAN CELL VOLUME (test code = MCV) 95.1 fL 81.0-99.0 N MEAN CELL HGB (test code = MCH) 31.7 pg 27.0-33.0 N MEAN CELL HGB CONCETRATION (test code = MCHC) 33.3 g/dL 33.0-37.0 N RED CELL DISTRIBUTION WIDTH CV (test code = RDW) 13.2 % 11.5-14.5 N RED CELL DISTRIBUTION WIDTH SD (test code = RDW-SD) 46.1 fL 37.0-54.0 N PLATELET COUNT (test code = PLT) 151 x10 3/uL 150-400 N MEAN PLATELET VOLUME (test code = MPV) 10.2 fL 7.0-9.0 H NEUTROPHIL % (test code = NT%) 88.5 % 56.0-77.0 H IMMATURE GRANULOCYTE % (test code = IG%) 0.7 % 0.0-2.0 N LYMPHOCYTE % (test code = LY%) 5.6 % 14.0-32.0 L MONOCYTE % (test code = MO%) 5.1 % 4.8-9.0 N EOSINOPHIL % (test code = EO%) 0.0 % 0.3-3.7 L BASOPHIL % (test code = BA%) 0.1 % 0.0-2.0 N NUCLEATED RBC % (test code = NRBC%) 0.0 % 0-0 N NEUTROPHIL # (test code = NT#) 13.47 x10 3/uL 2.0-7.6 H IMMATURE GRANULOCYTE # (test code = IG#) 0.11 x10 3/uL 0.00-0.03 H LYMPHOCYTE # (test code = LY#) 0.86 x10 3/uL 1.0-3.8 L MONOCYTE # (test code = MO#) 0.78 x10 3/uL 0.1-0.8 N EOSINOPHIL # (test code = EO#) 0.00 x10 3/uL 0.0-0.2 N BASOPHIL # (test code = BA#) 0.02 x10 3/uL 0.0-0.2 N NUCLEATED RBC # (test code = NRBC#) 0.00 x10 3/uL 0.0-0.1 N MANUAL DIFF REQUIRED (test code = MDIFF) NO COMMENTS: Daily while on HeparinBASIC METABOLIC [id number] 04:45:00* Test Item Value Reference Range Interpretation Comme nts SODIUM (test code = NA) 138 mEq/L 134-147 N POTASSIUM (test code = K) 5.0 mEq/L 3.4-5.0 N CHLORIDE (test code = CL) 106 mEq/L 100-108 N CARBON DIOXIDE (test code = CO2) 26 mEq/l 21-33 N ANION GAP (test code = GAP) 11 0-20 N GLUCOSE (test code = GLU) 146 mg/dL 70-110 H BLOOD UREA NITROGEN (test code = BUN) 13 mg/dL 7-18 N GLOMERULAR FILTRATION RATE (test code = GFR) 90.0 90-95 N The Glomerular Filtration Rate is a calculated parameterbased on serum Creatinine, patient age and sex. GFR valuesless than 60 mL/min/1.73 square meters are indicative ofChronic Kidney Disease. Values less than 15 mL/min/1.73square meters indicate Kidney failure. The calculation forGFR is based on the CKD-EPI (202) calculation. This formulais race indifferent and is the recommended formula for GFRby the National Kidney Foundation for Adults.The GFR will not calculate if the sex is unknown or if thepatient's age is <18 years. CREATININE (test code = CREAT) 1.0 mg/dL 0.6-1.3 N CALCIUM (test code = CA) 7.7 mg/dL 8.0-10.5 L COMMENTS: POD #1HEPATIC FUNCTION [id number] 04:45:00* Test Item Value Reference Range Interpretation Comme nts TOTAL PROTEIN (test code = PROT) 5.5 g/dL 6.4-8.2 L ALBUMIN (test code = ALB) 3.50 g/dL 3.4-5.0 N BILIRUBIN TOTAL (test code = BILT) 0.70 mg/dL 0.0-1.0 BILIRUBIN DIRECT (test code = BILD) 0.30 MG/DL 0.0-0.30 N BILIRUBIN INDIRECT (test cod e = BILIND) 0.40 MG/DL SGOT/AST (test code = AST) 71 IUnit/L 15-37 H SGPT/ALT (test code = ALT) 66 IUnit/L 30-65 H ALKALINE PHOSPHATASE TOTAL ( test code = ALKP) 59 IUnit/L 20-125 N COMMENTS: POD #[id number] 04:45:00* Test Item Value Reference Range Interpretation Comme nts MAGNESIUM (test code = MAG) 2.33 mg/dL 1.80-2.40 COMMENTS: POD #1POC ARTERIAL BLOOD [id number] 04:12:00* Test Item Value Reference Range Interpretation Comme nts POC ARTERIAL BLOOD GAS PH (t est code = POCPHA) 7.337 7.35-7.45 L POC ARTERIAL BLOOD GAS PCO2 (test code = YVOHRF0J) 48.2 mmHg 35.0-45 H POC TCO2 ARTERIAL (test code = POCTCO2) 27.1 POC ARTERIAL BLOOD GAS PO2 ( test code = PUWCI6D) 80.7 mmHg 80-100.0 N POC HCO3 ARTERIAL (test code = JJEHMK3J) 25.6 MMOL/L 22.0-26.0 N POC BASE EXCESS (test code = POCBEA) 0.0 MMOL/L -4.0-4.0 N POC O2 SATURATION (test code = POCO2S) 94.3 % 90-100 N FIO2 (test code = FIO2A) 36 % PaO2/FiO2 (test code = JYR8TFF4) 224.16 mm/Hg ABG DELIVERY (test code = REBA) Cannula ABG TEMPERATURE (test code = TEMPA) 100 F ABG SITE (test code = SITEA) Art Line MICHAEL'S TEST (test code = ALLENS) N/A BASIC METABOLIC [id number] 04:12:00* Test Item Value Reference Range Interpretation Comme nts SODIUM (test code = NA/ABG) 138 mmol/L 134-147 N POTASSIUM (test code = K/ABG) 5.1 mmol/L 3.4-5.0 H CHLORIDE (test code = CL/ABG) 103 mmol/L 100-108 N CREATININE ABG (test code = CREAABG) 1.1 mg/dL 0.8-1.3 N POC IONIZED CALCIUM (test co de = POCCA) 1.16 MMOL/L 1.12-1.32 N POC GLUCOSE (test code = POCGLU) 141 MG/DL 70-110 H HEMOGLOBIN [id number] 04:12:00* Test Item Value Reference Range Interpretation Comme nts HEMOGLOBIN ABG (test code = HGB/ABG) 13.4 G/DL 12.5-16.9 N [id number] 04:12:00* Test Item Value Reference Range Interpretation Comme nts HEMATOCRIT (test code = HCT/ABG) 40 % 37.5-50.7 N GLUCOSE [id number] 01:33:00* Test Item Value Reference Range Interpretation Comme nts GLUCOSE BEDSIDE (test code = GLUBED) 141 MG/DL 70-110 H Performed by cer phongied hat brim and crown laminating operator at [facility] - XR CHEST 1 [id number] 00:00:00 [facility] 1970 Sex: M FAX: Eric Chairez [phone] [place]: St: ADM FAX: Bernie Bingham [phone] Name: SHEKHAR LOZADA [facility] [place] : 1970 Age/S: 52/M [address] [place] [address] Unit #: [id number] Loc: G.2205 [place] [address] Phys: Caro Damon SECURITY AND COMPLIANCE PROJECT MANAGER Acct: [id number] Dis Date: Status: ADM IN PHONE #: [phone] Exam Date: 01/03/2023724 FAX #: [phone] Reason: Cardiac Surgery Post Op EXAMS: CPT CODE: [id number] XR CHEST 1 V 33554 PROCEDURE INFORMATION: Exam: XR Chest Exam date [...] opacities have improved. Pleural spaces: Question small left pleural effusion. No definite pneumothorax. Heart/Mediastinum: The enlarged heart size i s stable. Vasculature: Atherosclerotic calcifications. Bones/joints: Stable. Median sternotomy wires. IMPRESSION: 1. Improved lung opacities. 2. Removal of the ET tube. at 0802 Reported and signed by: Hilario Bentley M.D. CC: Eric Crabtree MD; Caro Bingham NP Technologist: RT Waylon(R) Trnscrd Date/Time/By: 01/03/2023 (801) : By: [email or web address] Orig Print D/T: S: 01/03/2023 (802) PAGE 1 Signed ReportGLUCOSE [id number] 22:47:00* Test Item Value Reference Range Interpretation Comme nts GLUCOSE BEDSIDE (test code = GLUBED) 150 MG/DL 70-110 H Performed by cer tified hat brim and crown laminating operator at [facility] POC ARTERIAL BLOOD [id number] 21:11:00* Test Item Value Reference Range Interpretation Comme nts POC ARTERIAL BLOOD GAS PH (t est code = POCPHA) 7.314 7.35-7.45 L POC ARTERIAL BLOOD GAS PCO2 (test code = [id number]) 47.1 mmHg 35.0-45 H POC TCO2 ARTERIAL (test code = POCTCO2) 25.3 POC ARTERIAL BLOOD GAS PO2 ( test code = ZGQIW6T) 93.3 mmHg 80-100.0 N POC HCO3 ARTERIAL (test code = SVCPTX2J) 23.9 MMOL/L 22.0-26.0 N POC BASE EXCESS (test code = POCBEA) -2.2 MMOL/L -4.0-4.0 N POC O2 SATURATION (test code = POCO2S) 96.3 % 90-100 N FIO2 (test code = FIO2A) 40 % PaO2/FiO2 (test code = [id number]) 233.25 mm/Hg ABG DELIVERY (test code = REBA) BiPAP ABG VENT RESP RATE (test cod e = RRA) 17 /MIN ABG PEEP (test code = PEEPA) 5 cmH2O ABG TEMPERATURE (test code = TEMPA) 99.1 F ABG SITE (test code = SITEA) Art Line MICHAEL'S TEST (test code = ALLENS) N/A BASIC METABOLIC [id number] 21:11:00* Test Item Value Reference Range Interpretation Comme nts SODIUM (test code = NA/ABG) 139 mmol/L 134-147 N POTASSIUM (test code = K/ABG) 4.6 mmol/L 3.4-5.0 N CHLORIDE (test code = CL/ABG) 106 mmol/L 100-108 N CREATININE ABG (test code = CREAABG) 1.0 mg/dL 0.8-1.3 POC IONIZED CALCIUM (test co de = POCCA) 1.21 MMOL/L 1.12-1.32 N POC GLUCOSE (test code = POCGLU) 158 MG/DL 70-110 H HEMOGLOBIN [id number] 21:11:00* Test Item Value Reference Range Interpretation Comme nts HEMOGLOBIN ABG (test code = HGB/ABG) 13.4 G/DL 12.5-16.9 N [id number] 21:11:00* Test Item Value Reference Range Interpretation Comme nts HEMATOCRIT (test code = HCT/ABG) 39 % 37.5-50.7 N PROTHROMBIN [id number] 20:18:00* Test Item Value Reference Range Interpretation Comme nts PROTHROMBIN TIME PATIENT (test code = PTP) 13.1 SECONDS 9.3-12.9 H INTERNATIONAL NORMAL RATIO (test code = INR) 1.2 0.8-1.2 N TARGET INR BY INDICATION Indication INR1. Prophylaxis of venous thrombosis 2.0 - 3.0 (orthopedic surgery), Prophylaxis of venous thrombosis (other than high-risk surgery), Treatment of Deep Vein Thrombosis/Pulmonary Embolism, Prevention of systemic embolism - Tissue heart valves, Acute Myocardial Infarction (to prevent systemic embolism), Valvular heart disease, Atrial Fibrillation, Bileaflet mechanical valve in aortic position.2. Mechanical prosthetic valves (high risk), 2.5 - 3.5 Presence of Lupus Anticoagulant or Antiphospholipid Antibodies, Prevention of systemic embolism - Acute Myocardial Infarction (to prevent recurrent infarct). COMMENTS: On arrivalTHROMBOPLASTIN TIME [id number] 20:18:00* Test Item Value Reference Range Interpretation Comme nts THROMBOPLASTIN TIME PARTIAL (test code = PTT) 28.0 Seconds 25.0-39.5 Therapeutic Rang e: 50.4 - 88.3 Seconds Effective 01/29/2019 COM[facility]: [facility] [id number] 20:13:00* Test Item Value Reference Range Interpretation Comme nts POC ARTERIAL BLOOD GAS PH (t est code = POCPHA) 7.290 7.35-7.45 LL POC ARTERIAL BLOOD GAS PCO2 (test code = [id number]) 48.3 mmHg 35.0-45 H POC TCO2 ARTERIAL (test code = POCTCO2) 24.7 POC ARTERIAL BLOOD GAS PO2 ( test code = [id number]) 78.8 mmHg 80-100.0 L POC HCO3 ARTERIAL (test code = OHMXDV5Y) 23.2 MMOL/L 22.0-26.0 N POC BASE EXCESS (test code = POCBEA) -3.4 MMOL/L -4.0-4.0 N POC O2 SATURATION (test code = POCO2S) 93.8 % 90-100 N FIO2 (test code = FIO2A) 40 % PaO2/FiO2 (test code = [id number]) 197.00 mm/Hg ABG DELIVERY (test code = REBA) Adult Vent ABG PEEP (test code = PEEPA) 5 cmH2O ABG PRESSURE SUPPORT (test c ode = PSABG) 10 cmH2O ABG TEMPERATURE (test code = TEMPA) 98.6 F ABG SITE (test code = SITEA) Art Line MICHAEL'S TEST (test code = ALLENS) N/A BASIC METABOLIC [id number] 20:13:00* Test Item Value Reference Range Interpretation Comme nts SODIUM (test code = NA/ABG) 140 mmol/L 134-147 N POTASSIUM (test code = K/ABG) 4.5 mmol/L 3.4-5.0 N CHLORIDE (test code = CL/ABG) 105 mmol/L 100-108 N CREATININE ABG (test code = CREAABG) 0.8 mg/dL 0.8-1.3 POC IONIZED CALCIUM (test co de = POCCA) 1.30 MMOL/L 1.12-1.32 N POC GLUCOSE (test code = POCGLU) 163 MG/DL 70-110 H HEMOGLOBIN [id number] 20:13:00* Test Item Value Reference Range Interpretation Comme nts HEMOGLOBIN ABG (test code = HGB/ABG) 14.4 G/DL 12.5-16.9 N [id number] 20:13:00* Test Item Value Reference Range Interpretation Comme nts HEMATOCRIT (test code = HCT/ABG) 42 % 37.5-50.7 N POC LACTIC [id number] 20:13:00* Test Item Value Reference Range Interpretation Comme nts POC LACTIC ACID (test code = POCLAC) 1.6 mmol/l 0.9-1.7 N CBC W/AUTO [id number] 20:00:00* Test Item Value Reference Range Interpretation Comme nts WHITE BLOOD CELL (test code = WBC) 25.8 x10 3/uL 4.5-11.0 H RED BLOOD CELL (test code = RBC) 4.13 x10 6/uL 4.00-5.60 N HEMOGLOBIN (test code = HGB) 13.1 g/dL 12.5-16.9 N HEMATOCRIT (test code = HCT) 38.6 % 37.5-50.7 N MEAN CELL VOLUME (test code = MCV) 93.5 fL 81.0-99.0 N MEAN CELL HGB (test code = MCH) 31.7 pg 27.0-33.0 N MEAN CELL HGB CONCETRATION (test code = MCHC) 33.9 g/dL 33.0-37.0 N RED CELL DISTRIBUTION WIDTH CV (test code = RDW) 13.2 % 11.5-14.5 N RED CELL DISTRIBUTION WIDTH SD (test code = RDW-SD) 44.8 fL 37.0-54.0 N PLATELET COUNT (test code = PLT) 212 x10 3/uL 150-400 N MEAN PLATELET VOLUME (test code = MPV) 10.1 fL 7.0-9.0 H NEUTROPHIL % (test code = NT%) 79.6 % 56.0-77.0 H LYMPHOCYTE % (test code = LY%) 10.2 % 14.0-32.0 L NEUTROPHIL # (test code = NT#) 20.54 x10 3/uL 2.0-7.6 H LYMPHOCYTE # (test code = LY#) 2.62 x10 3/uL 1.0-3.8 N MANUAL DIFF REQUIRED (test code = MDIFF) NO SLIDE REVIEW ED, CONSISTENT WITH AUTO DIFF. IMMATURE GRANULOCYTE % (test code = IG%) 2.8 % 0.0-2.0 H MONOCYTE % (test code = MO%) 6.3 % 4.8-9.0 N EOSINOPHIL % (test code = EO%) 0.8 % 0.3-3.7 N BASOPHIL % (test code = BA%) 0.3 % 0.0-2.0 N NUCLEATED RBC % (test code = NRBC%) 0.0 % 0-0 N IMMATURE GRANULOCYTE # (test code = IG#) 0.73 x10 3/uL 0.00-0.03 H MONOCYTE # (test code = MO#) 1.62 x10 3/uL 0.1-0.8 H EOSINOPHIL # (test code = EO#) 0.21 x10 3/uL 0.0-0.2 H BASOPHIL # (test code = BA#) 0.09 x10 3/uL 0.0-0.2 N NUCLEATED RBC # (test code = NRBC#) 0.00 x10 3/uL 0.0-0.1 N COMMENTS: On arrivalBASIC METABOLIC [id number] 19:52:00* Test Item Value Reference Range Interpretation Comme nts SODIUM (test code = NA) 138 mEq/L 134-147 N POTASSIUM (test code = K) 4.8 mEq/L 3.4-5.0 N CHLORIDE (test code = CL) 108 mEq/L 100-108 N CARBON DIOXIDE (test code = CO2) 24 mEq/l 21-33 N ANION GAP (test code = GAP) 11 0-20 N GLUCOSE (test code = GLU) 164 mg/dL 70-110 H BLOOD UREA NITROGEN (test code = BUN) 12 mg/dL 7-18 GLOMERULAR FILTRATION RATE (test code = GFR) 90.0 90-95 N The Glomerular Filtration Rate is a calculated parameterbased on serum Creatinine, patient age and sex. GFR valuesless than 60 mL/min/1.73 square meters are indicative ofChronic Kidney Disease. Values less than 15 mL/min/1.73square meters indicate Kidney failure. The calculation forGFR is based on the CKD-EPI (2020) calculation. This formulais race indifferent and is the recommended formula for GFRby the National Kidney Foundation for Adults.The GFR will not calculate if the sex is unknown or if thepatient's age is <18 years. CREATININE (test code = CREAT) 1.0 mg/dL 0.6-1.3 N CALCIUM (test code = CA) 8.4 mg/dL 8.0-10.5 N COMMENTS: On [id number] 19:52:00* Test Item Value Reference Range Interpretation Comme nts MAGNESIUM (test code = MAG) 2.90 mg/dL 1.80-2.40 H COMMENTS: On arrivalPOC ARTERIAL BLOOD [id number] 19:36:00* Test Item Value Reference Range Interpretation Comme nts POC ARTERIAL BLOOD GAS PH (t est code = POCPHA) 7.336 7.35-7.45 L POC ARTERIAL BLOOD GAS PCO2 (test code = CHKWFA6Z) 46.7 mmHg 35.0-45 H POC TCO2 ARTERIAL (test code = POCTCO2) 26.4 POC ARTERIAL BLOOD GAS PO2 ( test code = DBOUA8X) 71.2 mmHg 80-100.0 L POC HCO3 ARTERIAL (test code = EARRFB7H) 25.0 MMOL/L 22.0-26.0 N POC BASE EXCESS (test code = POCBEA) -0.9 MMOL/L -4.0-4.0 N POC O2 SATURATION (test code = POCO2S) 92.9 % 90-100 N FIO2 (test code = FIO2A) 50 % PaO2/FiO2 (test code = RTZ4HYE6) 142.40 mm/Hg ABG DELIVERY (test code = REBA) Adult Vent ABG VENT MODE (test code = MODEA) AC ABG TIDAL VOLUME (test code = TVA) 600 ml ABG PEEP (test code = PEEPA) 5 cmH2O ABG TEMPERATURE (test code = TEMPA) 98.4 F ABG SITE (test code = SITEA) Art Line BASIC METABOLIC [id number] 19:36:00* Test Item Value Reference Range Interpretation Comme nts SODIUM (test code = NA/ABG) 138 mmol/L 134-147 N POTASSIUM (test code = K/ABG) 4.6 mmol/L 3.4-5.0 N CHLORIDE (test code = CL/ABG) 104 mmol/L 100-108 N CREATININE ABG (test code = CREAABG) 1.1 mg/dL 0.8-1.3 N POC IONIZED CALCIUM (test co de = POCCA) 1.29 MMOL/L 1.12-1.32 N POC GLUCOSE (test code = POCGLU) 152 MG/DL 70-110 H HEMOGLOBIN [id number] 19:36:00* Test Item Value Reference Range Interpretation Comme nts HEMOGLOBIN ABG (test code = HGB/ABG) 13.2 G/DL 12.5-16.9 N [id number] 19:36:00* Test Item Value Reference Range Interpretation Comme nts HEMATOCRIT (test code = HCT/ABG) 39 % 37.5-50.7 N POC LACTIC [id number] 19:36:00* Test Item Value Reference Range Interpretation Comme nts POC LACTIC ACID (test code = POCLAC) 2.1 mmol/l 0.9-1.7 H [id number] 19:05:00* Test Item Value Reference Range Interpretation Comme nts ACT-ISTAT (test code = ACTI) 113 SEC 74-137 N Performed by cer tified hat brim and crown laminating operator at [facility] POC ARTERIAL BLOOD [id number] 18:58:00* Test Item Value Reference Range Interpretation Comme nts POC ARTERIAL BLOOD GAS PH (t est code = POCPHA) 7.358 7.35-7.45 N POC ARTERIAL BLOOD GAS PCO2 (test code = BIFLAB7O) 41.1 mmHg 35.0-45 N POC TCO2 ARTERIAL (test code = POCTCO2) 24.4 POC ARTERIAL BLOOD GAS PO2 ( test code = NEJQS6E) 86.6 mmHg 80-100.0 N POC HCO3 ARTERIAL (test code = TDVDGD7U) 23.1 MMOL/L 22.0-26.0 N POC BASE EXCESS (test code = POCBEA) -2.3 MMOL/L -4.0-4.0 N POC O2 SATURATION (test code = POCO2S) 96.2 % 90-100 N BASIC METABOLIC [id number] 18:58:00* Test Item Value Reference Range Interpretation Comme nts SODIUM (test code = NA/ABG) 138 mmol/L 134-147 N POTASSIUM (test code = K/ABG) 4.2 mmol/L 3.4-5.0 N CHLORIDE (test code = CL/ABG) 106 mmol/L 100-108 N CREATININE ABG (test code = CREAABG) 1.0 mg/dL 0.8-1.3 N POC IONIZED CALCIUM (test co de = POCCA) 1.28 MMOL/L 1.12-1.32 N POC GLUCOSE (test code = POCGLU) 167 MG/DL 70-110 H HEMOGLOBIN [id number] 18:58:00* Test Item Value Reference Range Interpretation Comme nts HEMOGLOBIN ABG (test code = HGB/ABG) 12.1 G/DL 12.5-16.9 L [id number] 18:58:00* Test Item Value Reference Range Interpretation Comme nts HEMATOCRIT (test code = HCT/ABG) 35 % 37.5-50.7 L POC LACTIC [id number] 18:58:00* Test Item Value Reference Range Interpretation Comme nts POC LACTIC ACID (test code = POCLAC) 2.1 mmol/l 0.9-1.7 H [id number] 17:53:00* Test Item Value Reference Range Interpretation Comme nts ACT-ISTAT (test code = ACTI) 474 SEC 74-137 H Performed by cer tified hat brim and crown laminating operator at [facility] POC ARTERIAL BLOOD [id number] 17:45:00* Test Item Value Reference Range Interpretation Comme nts POC ARTERIAL BLOOD GAS PH (t est code = POCPHA) 7.389 7.35-7.45 N POC ARTERIAL BLOOD GAS PCO2 (test code = ZXNEGZ3T) 42.8 mmHg 35.0-45 N POC TCO2 ARTERIAL (test code = POCTCO2) 27.1 POC ARTERIAL BLOOD GAS PO2 ( test code = XSLXU2Z) 169.3 mmHg 80-100.0 H POC HCO3 ARTERIAL (test code = JEOXRY4F) 25.8 MMOL/L 22.0-26.0 N POC BASE EXCESS (test code = POCBEA) 0.6 MMOL/L -4.0-4.0 N POC O2 SATURATION (test code = POCO2S) 99.5 % 90-100 N BASIC METABOLIC [id number] 17:45:00* Test Item Value Reference Range Interpretation Comme nts SODIUM (test code = NA/ABG) 136 mmol/L 134-147 N POTASSIUM (test code = K/ABG) 5.6 mmol/L 3.4-5.0 H CHLORIDE (test code = CL/ABG) 102 mmol/L 100-108 N CREATININE ABG (test code = CREAABG) 1.1 mg/dL 0.8-1.3 N POC IONIZED CALCIUM (test co de = POCCA) 1.03 MMOL/L 1.12-1.32 L POC GLUCOSE (test code = POCGLU) 171 MG/DL 70-110 H HEMOGLOBIN [id number] 17:45:00* Test Item Value Reference Range Interpretation Comme nts HEMOGLOBIN ABG (test code = HGB/ABG) 11.7 G/DL 12.5-16.9 L [id number] 17:45:00* Test Item Value Reference Range Interpretation Comme nts HEMATOCRIT (test code = HCT/ABG) 34 % 37.5-50.7 L POC LACTIC [id number] 17:45:00* Test Item Value Reference Range Interpretation Comme nts POC LACTIC ACID (test code = POCLAC) 1.7 mmol/l 0.9-1.7 N [id number] 17:29:00* Test Item Value Reference Range Interpretation Comme nts ACT-ISTAT (test code = ACTI) 540 SEC 74-137 H Performed by cer tified hat brim and crown laminating operator at [facility] POC ARTERIAL BLOOD [id number] 17:17:00* Test Item Value Reference Range Interpretation Comme nts POC ARTERIAL BLOOD GAS PH (t est code = POCPHA) 7.386 7.35-7.45 N POC ARTERIAL BLOOD GAS PCO2 (test code = BIZLQB9S) 42.4 mmHg 35.0-45 N POC TCO2 ARTERIAL (test code = POCTCO2) 26.7 POC ARTERIAL BLOOD GAS PO2 ( test code = EHFZJ9P) 235.2 mmHg 80-100.0 HH POC HCO3 ARTERIAL (test code = DIGTBO6Y) 25.4 MMOL/L 22.0-26.0 N POC BASE EXCESS (test code = POCBEA) 0.3 MMOL/L -4.0-4.0 N POC O2 SATURATION (test code = POCO2S) 99.8 % 90-100 N BASIC METABOLIC [id number] 17:17:00* Test Item Value Reference Range Interpretation Comme nts SODIUM (test code = NA/ABG) 136 mmol/L 134-147 N POTASSIUM (test code = K/ABG) 5.8 mmol/L 3.4-5.0 H CHLORIDE (test code = CL/ABG) 102 mmol/L 100-108 N CREATININE ABG (test code = CREAABG) 1.0 mg/dL 0.8-1.3 N POC IONIZED CALCIUM (test co de = POCCA) 1.01 MMOL/L 1.12-1.32 L POC GLUCOSE (test code = POCGLU) 179 MG/DL 70-110 H HEMOGLOBIN [id number] 17:17:00* Test Item Value Reference Range Interpretation Comme nts HEMOGLOBIN ABG (test code = HGB/ABG) 11.4 G/DL 12.5-16.9 L [id number] 17:17:00* Test Item Value Reference Range Interpretation Comme nts HEMATOCRIT (test code = HCT/ABG) 34 % 37.5-50.7 L POC LACTIC [id number] 17:17:00* Test Item Value Reference Range Interpretation Comme nts POC LACTIC ACID (test code = POCLAC) 1.5 mmol/l 0.9-1.7 N [id number] 17:00:00* Test Item Value Reference Range Interpretation Comme nts ACT-ISTAT (test code = ACTI) 642 SEC 74-137 H Performed by cer tified hat brim and crown laminating operator at [facility] POC ARTERIAL BLOOD [id number] 16:46:00* Test Item Value Reference Range Interpretation Comme nts POC ARTERIAL BLOOD GAS PH (t est code = POCPHA) 7.342 7.35-7.45 L POC ARTERIAL BLOOD GAS PCO2 (test code = ISFWIR5A) 47.9 mmHg 35.0-45 H POC TCO2 ARTERIAL (test code = POCTCO2) 27.4 POC ARTERIAL BLOOD GAS PO2 ( test code = XXPFT8J) 371.5 mmHg 80-100.0 HH POC HCO3 ARTERIAL (test code = UQOAVK4B) 25.9 MMOL/L 22.0-26.0 N POC BASE EXCESS (test code = POCBEA) -0.2 MMOL/L -4.0-4.0 N POC O2 SATURATION (test code = POCO2S) 99.9 % 90-100 N BASIC METABOLIC [id number] 16:46:00* Test Item Value Reference Range Interpretation Comme nts SODIUM (test code = NA/ABG) 137 mmol/L 134-147 N POTASSIUM (test code = K/ABG) 5.5 mmol/L 3.4-5.0 H CHLORIDE (test code = CL/ABG) 100 mmol/L 100-108 N CREATININE ABG (test code = CREAABG) 0.9 mg/dL 0.8-1.3 N POC IONIZED CALCIUM (test co de = POCCA) 0.99 MMOL/L 1.12-1.32 L POC GLUCOSE (test code = POCGLU) 188 MG/DL 70-110 H HEMOGLOBIN [id number] 16:46:00* Test Item Value Reference Range Interpretation Comme nts HEMOGLOBIN ABG (test code = HGB/ABG) 11.4 G/DL 12.5-16.9 L [id number] 16:46:00* Test Item Value Reference Range Interpretation Comme nts HEMATOCRIT (test code = HCT/ABG) 34 % 37.5-50.7 L POC LACTIC [id number] 16:46:00* Test Item Value Reference Range Interpretation Comme nts POC LACTIC ACID (test code = POCLAC) 0.7 mmol/l 0.9-1.7 L [id number] 16:32:00* Test Item Value Reference Range Interpretation Comme nts ACT-ISTAT (test code = ACTI) 600 SEC 74-137 H Performed by cer tified hat brim and crown laminating operator at [facility] POC ARTERIAL BLOOD [id number] 16:21:00* Test Item Value Reference Range Interpretation Comme nts POC ARTERIAL BLOOD GAS PH (t est code = POCPHA) 7.394 7.35-7.45 N POC ARTERIAL BLOOD GAS PCO2 (test code = QFWUCT9B) 40.2 mmHg 35.0-45 N POC TCO2 ARTERIAL (test code = POCTCO2) 25.8 POC ARTERIAL BLOOD GAS PO2 ( test code = IAQAY4F) 181.9 mmHg 80-100.0 H POC HCO3 ARTERIAL (test code = CJPOZR8V) 24.5 MMOL/L 22.0-26.0 N POC BASE EXCESS (test code = POCBEA) -0.4 MMOL/L -4.0-4.0 N POC O2 SATURATION (test code = POCO2S) 99.6 % 90-100 N BASIC METABOLIC [id number] 16:21:00* Test Item Value Reference Range Interpretation Comme nts SODIUM (test code = NA/ABG) 138 mmol/L 134-147 N POTASSIUM (test code = K/ABG) 5.1 mmol/L 3.4-5.0 H CHLORIDE (test code = CL/ABG) 105 mmol/L 100-108 N CREATININE ABG (test code = CREAABG) 0.9 mg/dL 0.8-1.3 N POC IONIZED CALCIUM (test co de = POCCA) 1.00 MMOL/L 1.12-1.32 L POC GLUCOSE (test code = POCGLU) 201 MG/DL 70-110 H HEMOGLOBIN [id number] 16:21:00* Test Item Value Reference Range Interpretation Comme nts HEMOGLOBIN ABG (test code = HGB/ABG) 14.3 G/DL 12.5-16.9 N [id number] 16:21:00* Test Item Value Reference Range Interpretation Comme nts HEMATOCRIT (test code = HCT/ABG) 42 % 37.5-50.7 N POC LACTIC [id number] 16:21:00* Test Item Value Reference Range Interpretation Comme nts POC LACTIC ACID (test code = POCLAC) 0.8 mmol/l 0.9-1.7 L [id number] 15:35:00* Test Item Value Reference Range Interpretation Comme nts ACT-ISTAT (test code = ACTI) 137 SEC 74-137 N Performed by cer tified hat brim and crown laminating operator at [facility] POC ARTERIAL BLOOD [id number] 15:32:00* Test Item Value Reference Range Interpretation Comme nts POC ARTERIAL BLOOD GAS PH (t est code = POCPHA) 7.433 7.35-7.45 N POC ARTERIAL BLOOD GAS PCO2 (test code = YPJOSX4S) 36.6 mmHg 35.0-45 N POC TCO2 ARTERIAL (test code = POCTCO2) 25.6 POC ARTERIAL BLOOD GAS PO2 ( test code = SFMYO5O) 532.6 mmHg 80-100.0 HH POC HCO3 ARTERIAL (test code = XBFTKQ4M) 24.4 MMOL/L 22.0-26.0 N POC BASE EXCESS (test code = POCBEA) 0.5 MMOL/L -4.0-4.0 N POC O2 SATURATION (test code = POCO2S) 100.0 % 90-100 N BASIC METABOLIC [id number] 15:32:00* Test Item Value Reference Range Interpretation Comme nts SODIUM (test code = NA/ABG) 139 mmol/L 134-147 N POTASSIUM (test code = K/ABG) 4.7 mmol/L 3.4-5.0 N CHLORIDE (test code = CL/ABG) 104 mmol/L 100-108 N CREATININE ABG (test code = CREAABG) 0.8 mg/dL 0.8-1.3 N POC IONIZED CALCIUM (test co de = POCCA) 1.03 MMOL/L 1.12-1.32 L POC GLUCOSE (test code = POCGLU) 137 MG/DL 70-110 H HEMOGLOBIN [id number] 15:32:00* Test Item Value Reference Range Interpretation Comme nts HEMOGLOBIN ABG (test code = HGB/ABG) 15.1 G/DL 12.5-16.9 N [id number] 15:32:00* Test Item Value Reference Range Interpretation Comme nts HEMATOCRIT (test code = HCT/ABG) 44 % 37.5-50.7 N POC LACTIC [id number] 15:32:00* Test Item Value Reference Range Interpretation Comme nts POC LACTIC ACID (test code = POCLAC) 0.8 mmol/l 0.9-1.7 L THROMBOPLASTIN TIME [id number] 04:40:00* Test Item Value Reference Range Interpretation Comme nts THROMBOPLASTIN TIME PARTIAL (test code = PTT) 62.5 Seconds 25.0-39.5 H Therapeutic Rang e: 50.4 - 88.3 Seconds Effective 01/29/2019 BASIC METABOLIC [id number] 04:35:00* Test Item Value Reference Range Interpretation Comme nts SODIUM (test code = NA) 140 mEq/L 134-147 N POTASSIUM (test code = K) 4.1 mEq/L 3.4-5.0 N CHLORIDE (test code = CL) 107 mEq/L 100-108 N CARBON DIOXIDE (test code = CO2) 27 mEq/l 21-33 N ANION GAP (test code = GAP) 10 0-20 N GLUCOSE (test code = GLU) 146 mg/dL 70-110 H BLOOD UREA NITROGEN (test code = BUN) 9 mg/dL 7-18 N GLOMERULAR FILTRATION RATE (test code = GFR) 105.8 90-95 H The Glomerular Filtration Rate is a calculated parameterbased on serum Creatinine, patient age and sex. GFR valuesless than 60 mL/min/1.73 square meters are indicative ofChronic Kidney Disease. Values less than 15 mL/min/1.73square meters indicate Kidney failure. The calculation forGFR is based on the CKD-EPI (202) calculation. This formulais race indifferent and is the recommended formula for GFRby the National Kidney Foundation for Adults.The GFR will not calculate if the sex is unknown or if thepatient's age is <18 years. CREATININE (test code = CREAT) 0.8 mg/dL 0.6-1.3 N CALCIUM (test code = CA) 8.6 mg/dL 8.0-10.5 N [id number] 04:35:00* Test Item Value Reference Range Interpretation Comme nts MAGNESIUM (test code = MAG) 2.16 mg/dL 1.80-2.40 N CBC W/AUTO [id number] 04:18:00* Test Item Value Reference Range Interpretation Comme nts WHITE BLOOD CELL (test code = WBC) 6.9 x10 3/uL 4.5-11.0 N RED BLOOD CELL (test code = RBC) 4.72 x10 6/uL 4.00-5.60 N HEMOGLOBIN (test code = HGB) 15.0 g/dL 12.5-16.9 N HEMATOCRIT (test code = HCT) 43.5 % 37.5-50.7 N MEAN CELL VOLUME (test code = MCV) 92.2 fL 81.0-99.0 N MEAN CELL HGB (test code = MCH) 31.8 pg 27.0-33.0 N MEAN CELL HGB CONCETRATION (test code = MCHC) 34.5 g/dL 33.0-37.0 N RED CELL DISTRIBUTION WIDTH CV (test code = RDW) 13.1 % 11.5-14.5 N RED CELL DISTRIBUTION WIDTH SD (test code = RDW-SD) 44.6 fL 37.0-54.0 N PLATELET COUNT (test code = PLT) 166 x10 3/uL 150-400 N MEAN PLATELET VOLUME (test c ode = MPV) 9.8 fL 7.0-9.0 H NEUTROPHIL % (test code = NT%) 57.9 % 56.0-77.0 N IMMATURE GRANULOCYTE % (test code = IG%) 0.7 % 0.0-2.0 N LYMPHOCYTE % (test code = LY%) 27.2 % 14.0-32.0 N MONOCYTE % (test code = MO%) 9.7 % 4.8-9.0 H EOSINOPHIL % (test code = EO%) 3.9 % 0.3-3.7 H BASOPHIL % (test code = BA%) 0.6 % 0.0-2.0 N NUCLEATED RBC % (test code = NRBC%) 0.0 % 0-0 N NEUTROPHIL # (test code = NT#) 4.02 x10 3/uL 2.0-7.6 N IMMATURE GRANULOCYTE # (test code = IG#) 0.05 x10 3/uL 0.00-0.03 H LYMPHOCYTE # (test code = LY#) 1.89 x10 3/uL 1.0-3.8 N MONOCYTE # (test code = MO#) 0.67 x10 3/uL 0.1-0.8 N EOSINOPHIL # (test code = EO#) 0.27 x10 3/uL 0.0-0.2 H BASOPHIL # (test code = BA#) 0.04 x10 3/uL 0.0-0.2 N NUCLEATED RBC # (test code = NRBC#) 0.00 x10 3/uL 0.0-0.1 N MANUAL DIFF REQUIRED (test c ode = MDIFF) NO COMMENTS: Daily while on Heparin- XR CHEST 1 [id number] [facility]00[facility] 1970 Sex: M FAX: Eric Chairez [phone] [place]: St: ADM FAX: Bernie Bingham [phone] Name: SHEKHAR LOZADA [facility] : 1970 Age/S: 52/M [address] [place] [address] Unit #: [id number] Loc: G.2205 [place] [address] Phys: Caro Damon [employer] MANAGER Acct: [id number] Dis Date: Status: ADM IN PHONE #: [phone] Exam Date: 01/02/20231927 FAX #: [phone] Reason: Cardiac Surgery Post Op EXAMS: CPT CODE: [id number] XR CHEST 1 V [id number] PROCEDURE INFORMATION: Exam: XR Chest Exam date [...] Kwan Trnscrd Date/Time/By: 01/02/2023 (2023) : By: [email or web address] Orig Print D/T: S: 01/02/2023 (2023) PAGE 1 Signed Report- DUP UE ART UNI/[id number] 00:00:00 [facility] 1970 Sex: M Name: SHEKHAR LOZADA [facility] : 1970 Age/S: 52 / M [address] [place] [address] Unit#: [id number] Loc: [place] [address] Phys: Caro Bingham NP Acct: [id number] Dis Date: Status: ADM IN PHONE #: [phone] Exam Date: 01/02/2023 1330 FAX #: [phone] Reason: PRE CABG EVAL EXAMS: CPT CODE: [id number] DUP UE ART UNI/LTD [id number] PROCEDURE INFORMATION: Exam: US Duplex Left U pper Extremity Arteries Exam date and time: 01/02/2023 10:21 AM Age: 52 years old Clinical indication: Screening exam; Additional info: Pre cabg eval TECHNIQUE: Imaging protocol: Left Real-time ultrasound scan of the arteries of the left upper extremity with 2-D terry scale, color Doppler flow and spectral waveform analysis. COMPARISON: US DUP EXTRACRANIAL ALEXY 12/30/2022 9:54 AM FINDINGS: Duplex sonographic evaluation of the hand arterial circulation was performed beginning at the antecubital fossa. Michael test was performed to assess for the presence or absence of dual collateral arterial circulation to each hand by Doppler. LEFT SIDE: - Radial artery diameters (antecubital/forearm/wrist): 4/2/3 mm - Radial artery peak systolic velocity at wrist: 33 cm/sec - Ulnar artery diameters (antecubital/forearm/wrist): 4/3/3 mm - Ulnar artery peak systolic velocity at wrist: 55 cm/sec - Radial artery calcification(Y/N)?: No - Radial artery flow reversal upon compression (Y/N)?: No - Antegrade digit flow after radial artery compression (Y/N)?: No antegrade flow to right thumb with radial arterycompression. Antegrade arterial flow to remaining digits. IMPRESSION: 1. Insufficient ulnar collateral circulation to the left hand (thumb) after radial artery compression. 2. No soft tissue edema orfluid collection. at 1603 Reported and signed by: Kentrell Jaime M.D. CC: Eric Crabtree MD; Caro Bingham NP Technologist: Lynn Mir RDMS(OB)(BR) Trnscb Date/Time: 01/02/2023 (1602) [email or web address] Orig Print D/T: S: 01/02/2023 (9834) Probe: PAGE 1 Signed ReportCOVID 19 Asymptomatic IH [id number] 15:34:00* Test Item Value Reference Range Interpretation Comme nts COVID 19 Asymptomatic IH AG (test code = COVNONPUIAG) Negative Negative A negative resul t is presumptive and should be confirmedwith an FDA authorized molecular assay, if necessary forpatient management.A positive result does not rule out co-infections withother pathogens.This test detects both viable (live) and non-viable,SARS-CoV, and SARS-CoV-2. Test performance depends on theamount of virus (antigen) in the sample.This test has not been FDA cleared or approved; the test hasbeen authorized by FDA under an Emergency Use Authorization(EUA) for use by laboratories certified under the CLIA thatmeet the requirements to perform moderate, high or waivedcomplexity tests. COMPREHENSIVE METABOLIC [id number] 14:19:00* Test Item Value Reference Range Interpretation Comme nts SODIUM (test code = NA) 137 mEq/L 134-147 N POTASSIUM (test code = K) 4.1 mEq/L 3.4-5.0 N CHLORIDE (test code = CL) 103 mEq/L 100-108 N CARBON DIOXIDE (test code = CO2) 26 mEq/l 21-33 N ANION GAP (test code = GAP) 12 0-20 N GLUCOSE (test code = GLU) 243 mg/dL 70-110 H BLOOD UREA NITROGEN (test code = BUN) 10 mg/dL 7-18 N GLOMERULAR FILTRATION RATE (test code = GFR) 105.8 90-95 H The Glomerular Filtration Rate is a calculated parameterbased on serum Creatinine, patient age and sex. GFR valuesless than 60 mL/min/1.73 square meters are indicative ofChronic Kidney Disease. Values less than 15 mL/min/1.73square meters indicate Kidney failure. The calculation forGFR is based on the CKD-EPI (202) calculation. This formulais race indifferent and is the recommended formula for GFRby the National Kidney Foundation for Adults.The GFR will not calculate if the sex is unknown or if thepatient's age is <18 years. CREATININE (test code = CREAT) 0.8 mg/dL 0.6-1.3 N TOTAL PROTEIN (test code = PROT) 6.4 g/dL 6.4-8.2 N ALBUMIN (test code = ALB) 3.80 g/dL 3.4-5.0 N CALCIUM (test code = CA) 8.9 mg/dL 8.0-10.5 N BILIRUBIN TOTAL (test code = BILT) 0.50 mg/dL 0.0-1.0 N SGOT/AST (test code = AST) 51 IUnit/L 15-37 H SGPT/ALT (test code = ALT) 66 IUnit/L 30-65 H ALKALINE PHOSPHATASE TOTAL (test code = ALKP) 102 IUnit/L 20-125 N PROTHROMBIN [id number] 14:15:00* Test Item Value Reference Range Interpretation Comme nts PROTHROMBIN TIME PATIENT (test code = PTP) 11.7 SECONDS 9.3-12.9 N INTERNATIONAL NORMAL RATIO (test code = INR) 1.1 0.8-1.2 N TARGET INR BY INDICATION Indication INR1. Prophylaxis of venous thrombosis 2.0 - 3.0 (orthopedic surgery), Prophylaxis of venous thrombosis (other than high-risk surgery), Treatment of Deep Vein Thrombosis/Pulmonary Embolism, Prevention of systemic embolism - Tissue heart valves, Acute Myocardial Infarction (to prevent systemic embolism), Valvular heart disease, Atrial Fibrillation, Bileaflet mechanical valve in aortic position.2. Mechanical prosthetic valves (high risk), 2.5 - 3.5 Presence of Lupus Anticoagulant or Antiphospholipid Antibodies, Prevention of systemic embolism - Acute Myocardial Infarction (to prevent recurrent infarct). THROMBOPLASTIN TIME [id number] 14:15:00* Test Item Value Reference Range Interpretation Comme [facility] THROMBOPLASTIN TIME PARTIAL (test code = PTT) 65.6 Seconds 25.0-39.5 H Therapeutic Rang e: 50.4 - 88.3 Seconds Effective 01/29/2019 CBC W/AUTO [id number] 14:05:00* Test Item Value Reference Range Interpretation Comme nts WHITE BLOOD CELL (test code = WBC) 6.5 x10 3/uL 4.5-11.0 N RED BLOOD CELL (test code = RBC) 4.83 x10 6/uL 4.00-5.60 N HEMOGLOBIN (test code = HGB) 15.3 g/dL 12.5-16.9 N HEMATOCRIT (test code = HCT) 44.9 % 37.5-50.7 N MEAN CELL VOLUME (test code = MCV) 93.0 fL 81.0-99.0 N MEAN CELL HGB (test code = MCH) 31.7 pg 27.0-33.0 N MEAN CELL HGB CONCETRATION (test code = MCHC) 34.1 g/dL 33.0-37.0 N RED CELL DISTRIBUTION WIDTH CV (test code = RDW) 13.2 % 11.5-14.5 N RED CELL DISTRIBUTION WIDTH SD (test code = RDW-SD) 45.0 fL 37.0-54.0 N PLATELET COUNT (test code = PLT) 170 x10 3/uL 150-400 N MEAN PLATELET VOLUME (test c ode = MPV) 10.3 fL 7.0-9.0 H NEUTROPHIL % (test code = NT%) 64.7 % 56.0-77.0 N IMMATURE GRANULOCYTE % (test code = IG%) 0.5 % 0.0-2.0 N LYMPHOCYTE % (test code = LY%) 21.3 % 14.0-32.0 N MONOCYTE % (test code = MO%) 9.2 % 4.8-9.0 H EOSINOPHIL % (test code = EO%) 3.7 % 0.3-3.7 N BASOPHIL % (test code = BA%) 0.6 % 0.0-2.0 N NUCLEATED RBC % (test code = NRBC%) 0.0 % 0-0 N NEUTROPHIL # (test code = NT#) 4.22 x10 3/uL 2.0-7.6 N IMMATURE GRANULOCYTE # (test code = IG#) 0.03 x10 3/uL 0.00-0.03 N LYMPHOCYTE # (test code = LY#) 1.39 x10 3/uL 1.0-3.8 N MONOCYTE # (test code = MO#) 0.60 x10 3/uL 0.1-0.8 N EOSINOPHIL # (test code = EO#) 0.24 x10 3/uL 0.0-0.2 H BASOPHIL # (test code = BA#) 0.04 x10 3/uL 0.0-0.2 N NUCLEATED RBC # (test code = NRBC#) 0.00 x10 3/uL 0.0-0.1 N MANUAL DIFF REQUIRED (test c ode = MDIFF) NO BASIC METABOLIC [id number] 11:19:00* Test Item Value Reference Range Interpretation Comme nts SODIUM (test code = NA) 139 mEq/L 134-147 N POTASSIUM (test code = K) 4.1 mEq/L 3.4-5.0 N CHLORIDE (test code = CL) 105 mEq/L 100-108 N CARBON DIOXIDE (test code = CO2) 27 mEq/l 21-33 N ANION GAP (test code = GAP) 11 0-20 N GLUCOSE (test code = GLU) 213 mg/dL 70-110 H BLOOD UREA NITROGEN (test code = BUN) 10 mg/dL 7-18 N GLOMERULAR FILTRATION RATE (test code = GFR) 102.1 90-95 H The Glomerular Filtration Rate is a calculated parameterbased on serum Creatinine, patient age and sex. GFR valuesless than 60 mL/min/1.73 square meters are indicative ofChronic Kidney Disease. Values less than 15 mL/min/1.73square meters indicate Kidney failure. The calculation forGFR is based on the CKD-EPI (202) calculation. This formulais race indifferent and is the recommended formula for GFRby the National Kidney Foundation for Adults.The GFR will not calculate if the sex is unknown or if thepatient's age is <18 years. CREATININE (test code = CREAT) 0.9 mg/dL 0.6-1.3 N CALCIUM (test code = CA) 9.1 mg/dL 8.0-10.5 N [id number] 11:19:00* Test Item Value Reference Range Interpretation Comme nts MAGNESIUM (test code = MAG) 1.95 mg/dL 1.80-2.40 N CBC W/AUTO [id number] 07:27:00* Test Item Value Reference Range Interpretation Comme nts WHITE BLOOD CELL (test code = WBC) 6.0 x10 3/uL 4.5-11.0 N RED BLOOD CELL (test code = RBC) 4.75 x10 6/uL 4.00-5.60 N HEMOGLOBIN (test code = HGB) 14.9 g/dL 12.5-16.9 N HEMATOCRIT (test code = HCT) 44.0 % 37.5-50.7 N MEAN CELL VOLUME (test code = MCV) 92.6 fL 81.0-99.0 N MEAN CELL HGB (test code = MCH) 31.4 pg 27.0-33.0 N MEAN CELL HGB CONCETRATION (test code = MCHC) 33.9 g/dL 33.0-37.0 N RED CELL DISTRIBUTION WIDTH CV (test code = RDW) 13.2 % 11.5-14.5 N RED CELL DISTRIBUTION WIDTH SD (test code = RDW-SD) 45.0 fL 37.0-54.0 N PLATELET COUNT (test code = PLT) 178 x10 3/uL 150-400 N MEAN PLATELET VOLUME (test c ode = MPV) 10.7 fL 7.0-9.0 H NEUTROPHIL % (test code = NT%) 55.9 % 56.0-77.0 L IMMATURE GRANULOCYTE % (test code = IG%) 0.5 % 0.0-2.0 N LYMPHOCYTE % (test code = LY%) 27.5 % 14.0-32.0 N MONOCYTE % (test code = MO%) 10.9 % 4.8-9.0 H EOSINOPHIL % (test code = EO%) 4.7 % 0.3-3.7 H BASOPHIL % (test code = BA%) 0.5 % 0.0-2.0 N NUCLEATED RBC % (test code = NRBC%) 0.0 % 0-0 N NEUTROPHIL # (test code = NT#) 3.35 x10 3/uL 2.0-7.6 N IMMATURE GRANULOCYTE # (test code = IG#) 0.03 x10 3/uL 0.00-0.03 N LYMPHOCYTE # (test code = LY#) 1.65 x10 3/uL 1.0-3.8 N MONOCYTE # (test code = MO#) 0.65 x10 3/uL 0.1-0.8 N EOSINOPHIL # (test code = EO#) 0.28 x10 3/uL 0.0-0.2 H BASOPHIL # (test code = BA#) 0.03 x10 3/uL 0.0-0.2 N NUCLEATED RBC # (test code = NRBC#) 0.00 x10 3/uL 0.0-0.1 N MANUAL DIFF REQUIRED (test c ode = MDIFF) NO COMMENTS: Daily while on HeparinTHROMBOPLASTIN TIME [id number] 04:47:00* Test Item Value Reference Range Interpretation Comme nts THROMBOPLASTIN TIME PARTIAL (test code = PTT) 60.3 Seconds 25.0-39.5 H Therapeutic Rang e: 50.4 - 88.3 Seconds Effective 01/29/2019 THROMBOPLASTIN TIME [id number] 12:11:00* Test Item Value Reference Range Interpretation Comme nts THROMBOPLASTIN TIME PARTIAL (test code = PTT) 61.1 Seconds 25.0-39.5 H Therapeutic Rang e: 50.4 - 88.3 Seconds Effective 01/29/2019 CBC W/AUTO [id number] 07:59:00* Test Item Value Reference Range Interpretation Comme nts WHITE BLOOD CELL (test code = WBC) 6.9 x10 3/uL 4.5-11.0 N RED BLOOD CELL (test code = RBC) 4.98 x10 6/uL 4.00-5.60 N HEMOGLOBIN (test code = HGB) 15.8 g/dL 12.5-16.9 N HEMATOCRIT (test code = HCT) 46.6 % 37.5-50.7 N MEAN CELL VOLUME (test code = MCV) 93.6 fL 81.0-99.0 N MEAN CELL HGB (test code = MCH) 31.7 pg 27.0-33.0 N MEAN CELL HGB CONCETRATION (test code = MCHC) 33.9 g/dL 33.0-37.0 N RED CELL DISTRIBUTION WIDTH CV (test code = RDW) 13.8 % 11.5-14.5 N RED CELL DISTRIBUTION WIDTH SD (test code = RDW-SD) 47.5 fL 37.0-54.0 N PLATELET COUNT (test code = PLT) 193 x10 3/uL 150-400 N MEAN PLATELET VOLUME (test c ode = MPV) 10.2 fL 7.0-9.0 H NEUTROPHIL % (test code = NT%) 53.2 % 56.0-77.0 L IMMATURE GRANULOCYTE % (test code = IG%) 0.6 % 0.0-2.0 N LYMPHOCYTE % (test code = LY%) 29.9 % 14.0-32.0 N MONOCYTE % (test code = MO%) 11.4 % 4.8-9.0 H EOSINOPHIL % (test code = EO%) 4.3 % 0.3-3.7 H BASOPHIL % (test code = BA%) 0.6 % 0.0-2.0 N NUCLEATED RBC % (test code = NRBC%) 0.0 % 0-0 N NEUTROPHIL # (test code = NT#) 3.67 x10 3/uL 2.0-7.6 N IMMATURE GRANULOCYTE # (test code = IG#) 0.04 x10 3/uL 0.00-0.03 H LYMPHOCYTE # (test code = LY#) 2.06 x10 3/uL 1.0-3.8 N MONOCYTE # (test code = MO#) 0.79 x10 3/uL 0.1-0.8 N EOSINOPHIL # (test code = EO#) 0.30 x10 3/uL 0.0-0.2 H BASOPHIL # (test code = BA#) 0.04 x10 3/uL 0.0-0.2 N NUCLEATED RBC # (test code = NRBC#) 0.00 x10 3/uL 0.0-0.1 N MANUAL DIFF REQUIRED (test c ode = MDIFF) NO COMMENTS: Daily while on HeparinBASIC METABOLIC [id number] 07:50:00* Test Item Value Reference Range Interpretation Comme nts SODIUM (test code = NA) 137 mEq/L 134-147 N POTASSIUM (test code = K) 4.0 mEq/L 3.4-5.0 N CHLORIDE (test code = CL) 103 mEq/L 100-108 N CARBON DIOXIDE (test code = CO2) 25 mEq/l 21-33 N ANION GAP (test code = GAP) 13 0-20 N GLUCOSE (test code = GLU) 153 mg/dL 70-110 H BLOOD UREA NITROGEN (test code = BUN) 8 mg/dL 7-18 N GLOMERULAR FILTRATION RATE (test code = GFR) 105.8 90-95 H The Glomerular Filtration Rate is a calculated parameterbased on serum Creatinine, patient age and sex. GFR valuesless than 60 mL/min/1.73 square meters are indicative ofChronic Kidney Disease. Values less than 15 mL/min/1.73square meters indicate Kidney failure. The calculation forGFR is based on the CKD-EPI (2020) calculation. This formulais race indifferent and is the recommended formula for GFRby the National Kidney Foundation for Adults.The GFR will not calculate if the sex is unknown or if thepatient's age is <18 years. CREATININE (test code = CREAT) 0.8 mg/dL 0.6-1.3 N CALCIUM (test code = CA) 9.3 mg/dL 8.0-10.5 N [id number] 07:50:00* Test Item Value Reference Range Interpretation Comme nts MAGNESIUM (test code = MAG) 2.20 mg/dL 1.80-2.40 N THROMBOPLASTIN TIME [id number] 06:31:00* Test Item Value Reference Range Interpretation Comme nts THROMBOPLASTIN TIME PARTIAL (test code = PTT) 58.3 Seconds 25.0-39.5 H Therapeutic Rang e: 50.4 - 88.3 Seconds Effective 01/29/2019 THROMBOPLASTIN TIME [id number] 00:07:00* Test Item Value Reference Range Interpretation Comme nts THROMBOPLASTIN TIME PARTIAL (test code = PTT) 52.0 Seconds 25.0-39.5 H Therapeutic Rang e: 50.4 - 88.3 Seconds Effective 01/29/2019 B-TYPE NATRIURETIC [id number] 16:09:00* Test Item Value Reference Range Interpretation Comme nts B-TYPE NATRIURETIC PEPTIDE ( test code = BNP) 81.0 PG/ML 0-100 N THROMBOPLASTIN TIME [id number] 16:01:00* Test Item Value Reference Range Interpretation Comme nts THROMBOPLASTIN TIME PARTIAL (test code = PTT) 33.1 Seconds 25.0-39.5 N Therapeutic Rang e: 50.4 - 88.3 Seconds Effective 01/29/2019 COMMENTS: DRAW PTT 6 HOURS AFTER INITIATION OF HEPARINCBC W/AUTO [id number] 15:57:00* Test Item Value Reference Range Interpretation Comme nts WHITE BLOOD CELL (test code = WBC) 5.5 x10 3/uL 4.5-11.0 N RED BLOOD CELL (test code = RBC) 4.72 x10 6/uL 4.00-5.60 N HEMOGLOBIN (test code = HGB) 15.0 g/dL 12.5-16.9 N HEMATOCRIT (test code = HCT) 43.4 % 37.5-50.7 N MEAN CELL VOLUME (test code = MCV) 91.9 fL 81.0-99.0 N MEAN CELL HGB (test code = MCH) 31.8 pg 27.0-33.0 N MEAN CELL HGB CONCETRATION (test code = MCHC) 34.6 g/dL 33.0-37.0 N RED CELL DISTRIBUTION WIDTH CV (test code = RDW) 13.5 % 11.5-14.5 N RED CELL DISTRIBUTION WIDTH SD (test code = RDW-SD) 45.6 fL 37.0-54.0 N PLATELET COUNT (test code = PLT) 156 x10 3/uL 150-400 N MEAN PLATELET VOLUME (test c ode = MPV) 9.9 fL 7.0-9.0 H NEUTROPHIL % (test code = NT%) 61.8 % 56.0-77.0 N IMMATURE GRANULOCYTE % (test code = IG%) 0.5 % 0.0-2.0 N LYMPHOCYTE % (test code = LY%) 21.6 % 14.0-32.0 N MONOCYTE % (test code = MO%) 12.7 % 4.8-9.0 H EOSINOPHIL % (test code = EO%) 2.9 % 0.3-3.7 N BASOPHIL % (test code = BA%) 0.5 % 0.0-2.0 N NUCLEATED RBC % (test code = NRBC%) 0.0 % 0-0 N NEUTROPHIL # (test code = NT#) 3.39 x10 3/uL 2.0-7.6 N IMMATURE GRANULOCYTE # (test code = IG#) 0.03 x10 3/uL 0.00-0.03 N LYMPHOCYTE # (test code = LY#) 1.19 x10 3/uL 1.0-3.8 N MONOCYTE # (test code = MO#) 0.70 x10 3/uL 0.1-0.8 N EOSINOPHIL # (test code = EO#) 0.16 x10 3/uL 0.0-0.2 N BASOPHIL # (test code = BA#) 0.03 x10 3/uL 0.0-0.2 N NUCLEATED RBC # (test code = NRBC#) 0.00 x10 3/uL 0.0-0.1 N MANUAL DIFF REQUIRED (test c ode = MDIFF) NO COMMENTS: IF NOT ALREADY DONE WITHIN LAST 24 HOURSCOMPREHENSIVE METABOLIC PANEL 2022-12-30 15:55:00* Test Item Value Reference Range Interpretation Comme nts SODIUM (test code = NA) 143 mEq/L 134-147 N POTASSIUM (test code = K) 3.9 mEq/L 3.4-5.0 N CHLORIDE (test code = CL) 103 mEq/L 100-108 N CARBON DIOXIDE (test code = CO2) 31 mEq/l 21-33 N ANION GAP (test code = GAP) 13 0-20 N GLUCOSE (test code = GLU) 240 mg/dL 70-110 H BLOOD UREA NITROGEN (test code = BUN) 10 mg/dL 7-18 N GLOMERULAR FILTRATION RATE (test code = GFR) 105.8 90-95 H The Glomerular Filtration Rate is a calculated parameterbased on serum Creatinine, patient age and sex. GFR valuesless than 60 mL/min/1.73 square meters are indicative ofChronic Kidney Disease. Values less than 15 mL/min/1.73square meters indicate Kidney failure. The calculation forGFR is based on the CKD-EPI (2020) calculation. This formulais race indifferent and is the recommended formula for GFRby the National Kidney Foundation for Adults.The GFR will not calculate if the sex is unknown or if thepatient's age is <18 years. CREATININE (test code = CREAT) 0.8 mg/dL 0.6-1.3 N TOTAL PROTEIN (test code = PROT) 6.5 g/dL 6.4-8.2 N ALBUMIN (test code = ALB) 3.80 g/dL 3.4-5.0 N CALCIUM (test code = CA) 9.1 mg/dL 8.0-10.5 N BILIRUBIN TOTAL (test code = BILT) 0.60 mg/dL 0.0-1.0 N SGOT/AST (test code = AST) 35 IUnit/L 15-37 N SGPT/ALT (test code = ALT) 47 IUnit/L 30-65 N ALKALINE PHOSPHATASE TOTAL (test code = ALKP) 89 IUnit/L 20-125 N LIPID PROFILE (CORONARY RISK)2022-12-30 15:55:00* Test Item Value Reference Range Interpretation Comme nts TRIGLYCERIDES (test code = TRIG) 452 mg/dL 40-150 H CHOLESTEROL (test code = CHOL) 162 mg/dL <200 CHOLESTEROL/HDL RATIO (test code = CHOLHDL) 6.89 RATIO 3.43-4.97 H RISK ASSOCIATED WITH CHOL/HDL RATIOS: RISK MALE FEMALE1/2 AVERAGE 3.43 3.27AVERAGE 4.97 4.442X AVERAGE 9.55 7.053X AVERAGE 23.39 11.04 NOTE THAT THE REFERENCE VALUE IS RELATEDTO RISK LEVELS RECOMMENDED BY THE NATL.HEART, LUNG, AND BLOOD INST. HDL CHOLESTEROL (test code = HDL) 23.5 mg/dL 32-72 L LIPOPROTEIN LDL (test code = LDL) 76.0 mg/dL 0-100 N <100 [id number] 0-129 NEAR OPTIMAL/ABOVE [id number] BIQZSIPQZM200-010 HIGH>JB=547 VERY HIGH*Guidelines provided by the National Cholesterol EducationProgram Adult Treatment Panel III HGBA1C%2022-12-30 15:50:00* Test Item Value Reference Range Interpretation Comme nts HGBA1C% (test code = HGBA1C%) 5.5 %A1C 4.8-6.0 N PROTHROMBIN [id number] 15:50:00* Test Item Value Reference Range Interpretation Comme nts PROTHROMBIN TIME PATIENT (test code = PTP) 11.9 SECONDS 9.3-12.9 N INTERNATIONAL NORMAL RATIO (test code = INR) 1.1 0.8-1.2 N TARGET INR BY INDICATION Indication INR1. Prophylaxis of venous thrombosis 2.0 - 3.0 (orthopedic surgery), Prophylaxis of venous thrombosis (other than high-risk surgery), Treatment of Deep Vein Thrombosis/Pulmonary Embolism, Prevention of systemic embolism - Tissue heart valves, Acute Myocardial Infarction (to prevent systemic embolism), Valvular heart disease, Atrial Fibrillation, Bileaflet mechanical valve in aortic position.2. Mechanical prosthetic valves (high risk), 2.5 - 3.5 Presence of Lupus Anticoagulant or Antiphospholipid Antibodies, Prevention of systemic embolism - Acute Myocardial Infarction (to prevent recurrent infarct). COMMENTS: IF NOT ALREADY DONE WITHIN LAST 24 HOURSUA RFLX MICR CULT IF INDICATED 2022-12-30 12:55:00* Test Item Value Reference Range Interpretation Comme nts UA COLOR (test code = COLU) STRAW YEL/STRAW UA APPEARANCE (test code = APPU) CLEAR CLEAR UA GLUCOSE DIPSTICK (test code = DGLUU) 3+ NEGATIVE A UA BILIRUBIN DIPSTICK (test code = BILU) NEGATIVE NEGATIVE UA KETONE DIPSTICK (test code = KETU) NEGATIVE NEGATIVE UA SPECIFIC GRAVITY (test code = SGU) 1.002 1.005-1.030 L UA BLOOD DIPSTICK (test code = ADONAY) NEGATIVE NEGATIVE UA PH DIPSTICK (test code = ZAK) 8.0 5.0-7.0 H UA PROTEIN DIPSTICK (test code = PROU) NEGATIVE NEGATIVE UA UROBILINIOGEN DIPSTICK (test code = URO) 0.2 mg/dL 0.2-1.0 UA NITRITE DIPSTICK (test code = SHIRLEY) NEGATIVE NEGATIVE UA LEUKOCYTE ESTERASE DIPSTICK (test code = LEUU) NEGATIVE NEGATIVE UA WBC (test code = WBCU) 0-3 WBC/HPF 0-3 UA RBC (test code = RBCU) NONE SEEN RBC/HPF 0-3 UA WBC NO REFLEX (test code = WBCUCL) 0-3 WBC/HPF 0-3 UA BACTERIA (test code = BACU) NONE SEEN /HPF NONE SEEN UA SQUAMOUS CELLS (test code = SQU) NONE SEEN /HPF NONE SEEN Indication for culture: Flank PainSpecimen Description: CLEAN CATCH- XR CHEST 2 [id number] 00:00:00 [facility] 1970 Sex: M FAX: Erci Chairez [phone] [place]: St: ADM FAX: Zabrina Terrell [phone] Name: KIERRA,DAVID [facility] : 1970 Age/S: 52/M [address] [place] [address] Unit #: [id number] Loc: [place] [place] [address] Phys: Zabrina Ruiz Acct: [id number] Dis Date: Status: ADM IN PHONE #: [phone] Exam Date: 12/30/2022 1002 FAX #: [phone] Reason: Cardiac Surgery Pre Op EXAMS:CPT CODE: [id number] XR CHEST 2 V 79962 PROCEDURE INFORMATION: Exam: XR Chest Exam date and time: 12/30/2022 9:27 AM Age: 52 years old Clinical indication: Other: Cardiac surgery pre op TECHNIQUE: Imaging protocol: Radiologic exam of the chest. Views: 2 views. PA and Lateral COMPARISON: CT CHEST W/O CONTRAST 12/30/2022 9:21 AM FINDINGS: Lungs: Clear. No consolidation. Pleural spaces: Unremarkable. No pleural effusion. No pneumothorax. Heart/Mediastinum: Contours within normal limits. Bones/joints:No acute osseous process. IMPRESSION: No radiographically identified acute findings in the chest. at 1527 Reported and signed by: Francisca Lares M.D. CC: Eric Crabtree MD; Zabrina HERNANDEZ Technologist: Anand Ramesh, RT(R) Trnscrd Date/Time/By: 12/30/2022 (1527) : By: [email or web address] [facility] Print D/T: S: 12/30/2022 (1521) PAGE 1 Signed Report- CT CHEST W/O [id number] 00:00:00 [facility] : 1970 Sex: M Name: SHEKHAR LOZADA [facility] : 1970 Age/S: [address] Unit#: [id number] Loc: [place] [address] Phys: Zabrina Ruiz MARY Acct: [id number] Dis Date: Status: ADM IN PHONE #: [phone] Exam Date: 12/30/2022929 FAX #: [phone] Reason: Cardiac Surgery Pre Op EXAMS: CPT CODE: [id number] CT CHEST W/O CONTRAST 12185 PROCEDURE INFORMATION: Exam: CT Chest Without Contrast; Diagnostic Exam date and time: 12/30/2022 9:21 AM Age: 52 years old Clinical indication: Screening exam; Pre-operative exam; Cardiovascular screening; Additional info: Cardiac surgerypre op TECHNIQUE: Imaging protocol: Diagnostic computed tomography of the chest without contrast. Radiation optimization: All CT scans at this facility use at least one of these dose optimization techniques: automated exposure control; mA and/or kV adjustment per patient size (includes targeted exams where dose is matched to clinical indication); or iterative reconstruction. REPORTING DATA: Countof CT and Cardiac NM exams in prior [...] series 3, image 139. No focal airspace consolid ation. Pleural spaces: Unremarkable. No pneumothorax. No pleural effusion. Heart: The heart is normal in size. Severe coronary artery calcifications are present in the [...] 0.8 cm right middle lobe pulmonary nodule.For patientsat low risk (minimal or absent history of [...] 1 Signed Report (CONTINUED) Name: SHEKHAR LOZADA [facility] Subha LakeDOB: 1970 Age/S: 52 / M [address] [place] [address] Unit #: [id number] Loc: [place] [address] Phys: Zabrina Ruiz Acct: [id number] Dis Date: Status: ADM IN PHONE #: [phone] Exam Date: 12/30/2022929 FAX #: [phone] Reason: Cardiac Surgery Pre Op EXAMS: CPT CODE: [id number] CT CHEST W/O CONTRAST 81050 (Continued) Gil Haywood, et al. Guidelines for Management of Incidental Pulmonary Nodules Detected on CT Images: From the Fleischner Society 2017. Radiology. 2017;284(1):228-243. at 1038 Reported and signed by: Janis Jeffries M.D. CC: Eric Crabtree MD; Zabrina HERNANDEZ Technologist:Zoya Sheth. RT(R) (CT); . CTDI: DLP: Trnscb Date/Time: 12/30/2022 (1038) [email or web address] Orig Print D/T: S: 12/30/2022 (1039) PAGE 2 Signed Report- DUP EXTRACRANIAL [id number] 00:00:00[facility] SUBHA LAKEName: SHEKHAR LOZADA : 1970 Sex: M Name: SHEKHAR LOZADA [facility] Subha Nicolas : 1970 Age/S: 52 / M [address] [place] [address] Blvd Unit#: [id number] Loc: [place] [address] Phys: Zabrina Ruiz MARY Acct: [id number] Dis Date: Status:ADM IN PHONE #: [phone] Exam Date: 12/30/2022 1100 FAX #: [phone] Reason: Cardiac SurgeryPre Op EXAMS: CPT CODE: [id number] DUP EXTRACRANIAL ALEXY 87165 PROCEDURE INFORMATION: Exam: US DuplexBilateral Extracranial Arteries, Carotid Arteries Exam date and [...] in the origin. Right vertebral artery: Unremarkable. Antegrade flow. Left common carotid artery: Unremarkable. No occlusion or stenosis. Waveforms arenormal. Left internal carotid artery: Minimal plaque. No occlusion or stenosis. Waveforms are normal. Left ICA/CCA ratio: Within normal limits. Left external carotid artery: No stenosis in the origin. Left vertebral artery: Unremarkable. Antegrade flow. IMPRESSION: No carotid arterial stenosis. REFERENCES: SRU CRITERIA. The degree of internal carotid artery stenosis is based on criteria defined by the Society of Radiologists in Ultrasound (SRU). Normal is no stenosis. Mild is less than 50% stenosis. Moderate is 50-69% stenosis. Severe is greater than 69% stenosis to near occlusion. Near occlusion is a markedly narrowed lumen. Total occlusion is no detectable patent lumen. at 1157 Reported and signed by: Adolph Woods M.D. PAGE 1 Signed Report (CONTINUED) Name: SHEKHAR LOZADA [facility] : 1970 Age/S: 52 / M [address] Unit #: [id number] Loc: [place] [address] Phys: Zabrina Ruiz LPA Acct: [id number] Dis Date: Status: ADM IN PHONE #: [phone] Exam Date: 12/30/2022 1100 FAX #: [phone] Reason: Cardiac Surgery Pre Op EXAMS: CPT CODE: [id number] DUP EXTRACRANIAL ALEXY 85701 (Continued) CC: Eric Crabtree MD; Zabrina HERNANDEZ Technologist: Ada Hutton RDMS(Domo)(BR) Trnscb Date/Time: 12/30/2022 (1157) t.TDO Orig Print D/T: S: 12/30/2022 (1158) Probe: PAGE2 Signed Report- DUP VEIN ALEXY 2022-12-30 00:00:00 [facility] 1970 Sex: M Name: SHEKHAR LOZADA [facility] : 1970 Age/S: 52 / M [address] [place] [address] Unit#: [id number] Loc: [place] [address] [address] Phys: Zabrina Ruiz Acct: [id number] Dis Date: Status:ADM IN PHONE #: [phone] Exam Date: 12/30/2022 1100 FAX #: [phone] Reason: Cardiac SurgeryPre Op Report Has Been Amended EXAMS: CPT CODE: [id number] DUP VEIN ALEXY 86419 Addendum - 2022 SIGNED 12/30/2022 ADDENDUM: [id number] US/DUPVBIL Addendum: The dimensions at the left greatersaphenous vein are in mm at 1206 Reported [...] scale, color Doppler flow and spectral waveform analysis including responses to compression and other maneuvers (when performed) with image doc umentation. Complete exam focused on the bilateral lower extremity veins for vein mapping. COMPARISON: No relevant prior studies available. FINDINGS: Right superficial veins: Normal compressibility. Greater saphenous vein is patent. Right greater saphenous vein-upper thigh: 5.3 mm Right greater saphenous vein- mid thigh: 4.5 mm Right greater saphenous vein-lower thigh: 4.8 mm Right greater saphenous vein-upper le.6 mm Right greater saphenous vein-mid le.9 mm Right greater saphenous vein-lower le.9 mm Left superficial veins: Normal compressibility. Greater saphenous vein is patent.Left great saphenous vein- upper thigh: 4.5 Left great saphenous vein-mid thigh: 3.8 Left great saphenous vein-lower thigh: 3.6 Left great saphenous vein-upper le.5 PAGE 1 Signed Report (CONTINUED) Name: SHEKHAR LOZADA [facility] : 1970 Age/S: 52 / M [address] [place] [address] Blvd Unit#: [id number] Loc: [place] [address] Phys: Zabrina Ruiz Acct: [id number] Dis Date: Status:ADM IN PHONE #: [phone] Exam Date: 12/30/2022 1100 FAX #: [phone] Reason: Cardiac SurgeryPre Op Report Has Been Amended EXAMS: CPT CODE: [id number] DUP VEIN ALEXY 09880 (Continued) Leftgreat saphenous vein-mid le.6 Left great saphenous vein-lower le.5 Soft tissues: Unremarkable. IMPRESSION: 1. Greater saphenous veins are patent bilaterally. 2. Bilateral lower extremity vein mapping as above. at 1205 Reported and signed by: Fernando Valdez M.D. CC: Eric Crabtree MD; Zabrina HERNANDEZ Technologist: Ada Hutton RDMS(Domo)(BR) Trnscb Date/Time: 12/30/2022 (1205) [id number] Orig Print D/T: S:12/30/2022 (1205) Probe: PAGE 2 Signed ReportADC,CLC OR L[facility] ONLY - INFLUENZA A & B DIRECT [id number] 01:04:00* Test Item Value Reference Range Interpretation Comme nts Influenza A (test code = 74007-5) Negative Negative Influenza B (test code = 58359-6) Negative Negative Lab Interpretation (test cod e = 03690-0) Normal [facility] (ALB, T.PRO, BILI T, BU/BC, ALT, AST, ALK PHOS)2019-12-31 00:54:00* Test Item Value Reference Range Interpretation Comme nts TOTAL BILI (test code = 6848569515) 0.3 mg/dL 0.1-1.1 BILI UNCON (test code = 7489407949) 0.0 mg/dL 0.1-1.1 L BILI CONJ (test code = 1585689495) 0.0 mg/dL 0-0.3 T PROTEIN (test code = 4754373817) 7.4 g/dL 6.3-8.2 ALBUMIN (test code = 9927560113) 4.4 g/dL 3.5-5 ALK PHOS (test code = 8015416910) 137 U/L 34-122 H ALTv (test code = 1742-6) 47 U/L 5-50 AST(SGOT) (test code = 7918124198) 40 U/L 13-40 Lab Interpretation (test cod e = 25847-9) Abnormal [facility] (NA, K, CL, CO2, GLUCOSE, BUN, CREATININE, CA)2019-12-31 00:54:00* Test Item Value Reference Range Interpretation Comme nts NA (test code = 6014820068) 140 mmol/L 135-145 K (test code = 9011482355) 3.8 mmol/L 3.5-5 CL (test code = 1005641876) 100 mmol/L 98-108 CO2 TOTAL (test code = 0991822580) 31 mmol/L 23-31 AGAP (test code = 0771883560) 2-16 BUN (test code = 0261016476) 14 mg/dL 7-23 GLUCOSE (test code = 1695029242) 169 mg/dL 70-110 H CREATININE (test code = 1629900497) 0.88 mg/dL 0.6-1.25 CALCIUM (test code = 7724234272) 9.5 mg/dL 8.6-10.6 eGFR Calculation (Non-) (test code = 8254274155) mL/min/1.73m2 eGFR Calculation () (test code = 8770796791) mL/min/1.73m2 HARIKA (test code = HARIKA) Association of [...] or abnormalities in imaging tests). Lab Interpretation (test code = 48928-8) Abnormal [facility] W/O Gpapcwfk1603-91-36 00:46:04No acute findings. HISTORY:Headache, acute, normal neuro exam TECHNIQUE: Noncontrast head CT was performed. COMPARISON:None. FINDINGS: The ventricles and sulci are appropriate for patient's age. There is no midline shift. The basal cisterns are preserved. No largevascular territory infarction, intracranial hemorrhage or mass effect isseen. The extracranial tissues demonstrate no acute findings. [facility], Radiant Results Inft User - 12/30/2019 7:47 PM CDTHISTORY:Headache, acute, normal neuro exam TECHNIQUE: Noncontrast head CT was performed.COMPARISON:None.FINDINGS:The ventricles and sulci are appropriate for patient's age.There is no midline shift. The basal cisterns are preserved. No largevascular territory infarction, intracranial hemorrhage or mass effect isseen.The extracranial tissues demonstrate no acute findings.IMPRESSIONNo acute findings.[facility] WITH CEZJDLVPSNUT2223-77-00 00:41:00* Test Item Value Reference Range Interpretation Comme nts WBC (test code = 6690-2) See_Comment [[facility]] The system which generated this result transmitted reference range: 4.20 - 10.70 10*3/?L. The reference range was not used to interpret this result as normal/abnormal. RBC (test code = 789-8) See_Comment [[facility]] The system which generated this result transmitted reference range: 4.26 - 5.52 10*6/?L. The reference range was not used to interpret this result as normal/abnormal. HGB (test code = 718-7) 16.3 g/dL 12.2-16.4 HCT (test code = 4544-3) 48.6 % 38.4-49.3 MCV (test code = 787-2) 94.9 fL 81.7-95.6 MCH (test code = 785-6) 31.8 pg 26.1-32.7 MCHC (test code = 786-4) 33.5 g/dL 31.2-35 RDW-SD (test code = 82267-5) 43.0 fL 38.5-51.6 RDW-CV (test code = 788-0) 12.3 % 12.1-15.4 PLT (test code = 777-3) See_Comment [Automated messa ge] The system which generated this result transmitted reference range: 150 - 328 10*3/?L. The reference range was not used to interpret this result as normal/abnormal. MPV (test code = 10173-3) 9.8 fL 9.8-13 NRBC/100 WBC (test code = 0863500327) See_Comment [Automated me ssage] The system which generated this result transmitted reference range: 0.0 - 10.0 /100 WBCs. The reference range was not used to interpret this result as normal/abnormal. NRBC x10^3 (test code = 3800632936) <0.01 See_Comment [Automated me ssage] The system which generated this result transmitted reference range: 10*3/?L. The reference range was not used to interpret this result as normal/abnormal. GRAN MAT (NEUT) % (test code = 770-8) 65.7 % IMM GRAN % (test code = 7823263999) 0.50 % LYMPH % (test code = 736-9) 22.3 % MONO % (test code = 5905-5) 9.3 % EOS % (test code = 713-8) 1.6 % BASO % (test code = 706-2) 0.6 % GRAN MAT x10^3(ANC) (test code = 2919274500) 5.71 10*3/uL 1.99-6.95 IMM GRAN x10^3 (test code = 7916530139) 0.04 10*3/uL 0-0.06 LYMPH x10^3 (test code = 731-0) 1.94 10*3/uL 1.09-3.23 MONO x10^3 (test code = 742-7) 0.81 10*3/uL 0.36-1.02 EOS x10^3 (test code = 711-2) 0.14 10*3/uL 0.06-0.53 BASO x10^3 (test code = 704-7) 0.05 10*3/uL 0.01-0.09 [facility] Consult Notes Date/Time Note Provider Source 2023-06-29 08:30:30 4006-00-50K44:30:30A ssociated Order(s): [facility] Cardiology Consult NotePatient: Shekhar Lozada Jr.Date of : 1970MRN: [id number] of service: 06/29/2023 Primary Care Physician: PATIENT DOES NOT HAVE A PCPCHIEF COMPLAINT: Chief Complaint Patient presents with Chest Pain HISTORY OF PRESENT ILLNESS:Shekhar Lozada Jr. is a 52 year old male presented to the ER for evaluation for chest pain. History from patient. Pertinent cardiac related history reviewed from chartPresented to the ER with chest pain. He started having chest pain today so he decided to come into the emergency room for further evaluation. No typical exertional chest pain history noted. KISER NYHA class II noted.Recently seen by PCP. Due to elevated blood pressure losartan was added. Otherwise compliant with cardiac medications without any changes.Patient has a history of coronary artery disease diagnosed 12/2022 and he is status post coronary artery bypass grafting x4. No PND or orthopnea. No pedal edema. No exertional palpitations or palpitations at rest. No syncopal attacks. PAST MEDICAL HISTORY Coronary artery diseaseDiabetes type 2History of hypertensionHyperlipidemia PAST SURGICAL HISTORYQuadruple coronary artery bypass graftingPrevious Cardiac Studies: IMAGING - I personally reviewed, pertinent results as below: EKG 06/28/2023 reviewed shows sinus rhythm, RBBB, bifascicular block, nonspecific ST-T changes noted. No prior EKG for comparison.Chest x-ray 06/28/2023 shows no heart failure.SOCIAL HISTORYSocial History Socioeconomic History Marital status: Single Tobacco Use Smoking status: Former Types: Cigarettes Smokeless tobacco: Never ALLERGIESNo Known AllergiesMEDICATIONSCurrent Discharge Medication List STOP taking these medications amiodarone 200 mg tablet Comments: Reason for Stopping: aspirin 81 mg chewable tablet Comments: Reason for Stopping: atorvastatin 40 mg tablet Comments: Reason for Stopping: clopidogreL 75 mg tablet Comments: Reason for Stopping: ferrous sulfate (FEOSOL) 325 mg (65 mg iron) tablet Comments: Reason for Stopping: furosemide 20 mg tablet Comments: Reason for Stopping: HYDROcodone-acetaminophen 5-325 mg tablet Comments: Reason for Stopping: losartan 50 mg tablet Comments: Reason for Stopping: metoprolol tartrate 25 mg tablet Comments: Reason for Stopping: amLODIPine 10 mg tablet Comments: Reason for Stopping: Current Facility-Administered Medications: ALPRAZolam (XANAX) tablet 0.25 mg, 0.25 mg, Oral, TID, Balta Ayala MD, 0.25 mg at 06/29/23 0807 amiodarone (PACERONE) tablet 200 mg, 200 mg, Oral, BID, Balta Ayala MD, 200 mg at 06/29/23 0808 amLODIPine (NORVASC) tablet 10 mg, 10 mg, Oral, DAILY, Balta Ayala MD ferrous sulfate tablet 325 mg, 325 mg, Oral, DAILY, Balta Ayala MD, 325 mg at 06/29/23 0808 furosemide (LASIX) tablet 20 mg, 20 mg, Oral, DAILY, Balta Ayala MD, 20 mg at 06/29/23 0808 hydralAZINE (APRESOLINE) injection 10 mg, 10 mg, Slow IV Push, Q4HPRN, Balta Ayala MD, 10 mg at 06/29/23 0412 HYDROcodone-acetaminophen (NORCO 5) 5-325 mg tablet 1 tablet, 1 tablet, Oral, Q6HPRN, Balta Ayala MD HYDROmorphone (DILAUDID) injection 1 mg, 1 mg, Slow IV Push, Q6HPRN, Balta Ayala MD, 1 mg at 06/29/23 0321 levalbuterol (XOPENEX) nebulizer solution 1.25 mg, 1.25 mg, Inhalation, TIDPRN, Balta Ayala MD losartan (COZAAR) tablet 50 mg, 50 mg, Oral, DAILY, Balta Ayala MD, 50 mg at 06/29/23 0808 metoprolol tartrate (LOPRESSOR) tablet 50 mg, 50 mg, Oral, Q12H, Balta Ayala MD, 50 mg at 06/29/23 0808 aspirin chewable tablet 81 mg, 81 mg, Oral, DAILY, Balta Ayala MD, 81 mg at 06/29/23 0808 atorvastatin (LIPITOR) tablet 40 mg, 40 mg, Oral, QPM, Balta Ayala MD clopidogreL (PLAVIX) 75 mg tablet 75 mg, 75 mg, Oral, DAILY, Balta Ayala MD, 75 mg at 06/29/23 0808 docusate (COLACE) capsule 100 mg, 100 mg, Oral, DAILY, Balta Ayala MD, 100 mg at 06/29/23 0808 enoxaparin (LOVENOX) injection 40 mg, 40 mg, Subcutaneous, DAILY, Balta Ayala MD, 40 mg at 06/29/23 0809 FENTanyl PF (SUBLIMAZE (PF)) injection 12.5 mcg, 12.5 mcg, Slow IV Push, Q6HPRN, Balta Ayala MD, 12.5 mcg at 06/29/23 0044 HYDROcodone-acetaminophen (NORCO 5) 5-325 mg tablet 1 tablet, 1 tablet, Oral, Q6HPRN, Balta Ayala MD, 1 tablet at 06/29/23 0253 ondansetron (ZOFRAN (PF)) injection 4 mg, 4 mg, Slow IV Push, Q6HPRN, Balta Ayala MDREVIEW OF SYSTEMS:Comprehensive 10-system review was conducted and were negative except for what's noted in the HPI. The following systems were reviewed: Constitutional, cardiovascular, respiratory, gastrointestinal, genitourinary, musculoskeletal, neurologic, psychiatric, endocrinological, and hematological.PHYSICAL EXAMINATION:Vitals: 06/29/23 0254 06/29/23 0407 06/29/23 0439 06/29/23 0729 BP: (!) 212/113 (!) 200/109 (!) 170/95 (!) 170/95 BP Location: Right arm Patient Position: Sitting Pulse: 73 75 81 74 Resp: 18 18 Temp: 36.1 ?C (96.9 ?F) 36.7 ?C (98 ?F) TempSrc: SpO2: 93% 95% Weight: 113.5 kg (250 lb 3.2 oz) Height: General: no apparent distressHEENT: normocephalic atraumaticNeck: supple, no lymphadenopathy, no bruits, no JVDLungs: clear to auscultation bilaterally. No wheezes or rhonchi. No increased work of breathing.Cardio: Regular rate and rhythm, S1&S2 normal, no murmurs, rubs or gallopsAbdomen: soft; non-tender; non-distended; normoactive bowel sounds. : not examinedRectal: not examinedExtremities: no clubbing, cyanosis, or edema.Skin: no rashes, no visible lesions.Neuro: no gross focal deficitsLABS - Reviewed pertinent labs as below:CBC BMP PT/INR WBC (10*3/?L) Date Value 06/29/2023 9.66 NA (mmol/L) Date Value 06/29/2023 140 No results found for: "PT" PLT (10*3/?L) Date Value 06/29/2023 182 K (mmol/L) Date Value 06/29/2023 3.9 No results found for: "PTINR" HGB (g/dL) Date Value 06/29/2023 14.4 BUN (mg/dL) Date Value 06/29/2023 19 HCT (%) Date Value 06/29/2023 41.6 CREATININE (mg/dL) Date Value 06/29/2023 1.02 LIPID PROFILE GLUCOSE (mg/dL) Date Value 06/29/2023 192 (H) CHOL (mg/dL) Date Value 06/29/2023 116 (L) TSH LDL CHOL (mg/dL) Date Value 06/29/2023 41 No results found for: "TSH" CARDIAC ENZYMES HDL (mg/dL) Date Value 06/29/2023 29 (L) No results found for: "CK" TRIG (mg/dL) Date Value 06/29/2023 230 (H) LFTs No results found for: "CKMB" AST(SGOT) (U/L) Date Value 06/28/2023 34 TROPONIN I (ng/mL) Date Value 06/29/2023 0.043 (H) ALT(SGPT) (U/L) Date Value 04/19/2018 31 ALTv (U/L) Date Value 06/28/2023 47 No results found for: "BNP" LDL CHOL (mg/dL) Date Value 06/29/2023 41 Recent Labs TROPNI 0.043* Recent Labs TRIG 230* LDL CHOL (mg/dL) Date Value 06/29/2023 41 NT-proBNP (pg/mL) Date Value 06/29/2023 630 ASSESSMENT/PLANPrincipal Problem: Chest pain due to myocardial ischemia, unspecified ischemic chest pain typeActive Problems: Morbid obesity with body mass index of 40.0-49.9 Coronary artery disease involving coronary bypass graft of [place] heart with angina pectoris Uncontrolled hypertension Dyslipidemia KISER (dyspnea on exertion) Elevated brain natriuretic peptide (BNP) level PAF (paroxysmal atrial fibrillation) Elevated troponin I levelAtypical chest pain by history:ECG reviewed which shows no dynamic changes noted. EKG 06/28/2023 reviewed shows sinus rhythm, RBBB, bifascicular block, nonspecific ST-T changes noted. No prior EKG for comparison.Chest x-ray 06/28/2023 shows no heart failure.Serial troponins x2 have been stable.Recommend Echo to assess to EF and wall motion changes. Telemetry reviewed. No significant arrhythmias noted. Continue telemetry monitoringElevated troponins: Likely type II [place] in setting of underlying uncontrolled hypertension.ECG reviewed which shows no dynamic changes noted. EKG 06/28/2023 reviewed shows sinus rhythm, RBBB, bifascicular block, nonspecific ST-T changes noted. No prior EKG for comparison.Chest x-ray 06/28/2023 shows no heart failure.Serial troponins x2 have been stable.Recommend Echo to assess to EF and wall motion changes. Telemetry reviewed. No significant arrhythmias noted. Continue telemetry monitoringRecent Labs 06/29/2306 TROPNI 0.036* 0.043* Elevated BNP: Chronic diastolic heart failure. No clinical signs of volume overload noted.Serial troponins x2 have been stable.Recommend Echo to assess to EF and wall motion changes. Continue Lasix 20 mg daily.NT-proBNP (pg/mL) Date Value 06/29/2023 630 CAD s/p CABG ABG done in [facility].Patient reports having angiogram done in [facility].We will try to get outside records.Continue with aspirin/Plavix.Continue metoprolol 50 twice daily.Perioperative atrial fibrillation: Currently on amiodarone 200 mg twice dailyReports he has been taking amiodarone 200 twice daily since the surgical date. Has not seen cardiology since then.May consider reducing the dose of amiodarone to 200 mg daily.Telemetry reviewed. No significant arrhythmias noted.Hypertension: Not optimally controlledCurrently on amlodipine 10 mg daily, losartan 50 mg daily and Lopressor 50 twice daily.Recommended goal blood pressure less than 130/80.Dyslipidemia: Continue with Lipitor 40 mg daily.Recommend goal LDL less than 70 and triglycerides less than 150.LDL CHOL (mg/dL) Date Value 06/29/2023 41 Recent Labs TRIG 230* Obese: Recommended lifestyle modification/risk factor modification/weight reduction diet/adequate exercises. Body mass index is 41.64 kg/m?. Last Two A1C Results ([facility], POCT, [facility]) There are no current results on file for these tests and/or test for 1 year.Invalid input(s): "I23243" My diagnostic impression and treatment plans were discussed at length with the patient. All side effects as well as drug-drug interactions and risks discussed at length. Ample opportunity was offered and encouraged to ask questions during this visit and patient appreciated the answers given by me and verbzalised statisfcation in the answers given. Thank you for allowing us to participate in the care of Shekhar Lozada Jr..If you have any questions or concerns please feel free to call our office at [phone]. I would be happy to be of further assistance for Shekhar Lozada Jr. wellbeing. Voice recognition software has been used to create portions of this document. An attempt to proofread has been made to minimize errors. Please do not hesitate to call with any questions. Michael Dobbs MD Egg Tester, Division of CardiologyUnHouston [facility] [address]-4Evngwzz xpkxHP7254-28-13N52:28:04Consult noteTXT1.2.840.058014.1.13.104.2.7.2.01522 9|[id number] for patient gcjh83955-0Marspxl noteLNUT[address] Shg[id number] SKNVJYGRHKIQCULN4776-88-19D72:28:041.2.840 .903959.1.72.3.15|1.2.840.429536.1.13.104. 2.7.2.727879_[id number] [facility] History and Physical Notes Date/Time Note Provider Source 2023-06-28 23:50:27 3752-50-95Z90:50:27F ormatting of this note is different from the original.[facility] Hospitalist Admission H&P Date of Service: 3CHIEF COMPLAINT: Chest pain and back painHISTORY OF PRESENT ILLNESSDaernst Lozada Jr. is a 52 year old male who presents with chest pain. Patient also been having low back pain. Patient states he has been having the low back pain chronically. He has been treated with anti-inflammatories and muscle relaxers with very little relief. He started having chest pain today so he decided to come into the emergency room for further evaluation. Patient has a history of coronary artery disease diagnosed earlier this year and he is status post coronary artery bypass grafting x4. Patient tolerated the procedure well. Patient recovered after being in the hospital for about a week. Patient is continuing with current medications and we will go ahead and rule out acute coronary syndrome. Serial troponins and EKG.PAST MEDICAL HISTORY Coronary artery diseaseDiabetes type 2History of hypertensionHyperlipidemiaPAST SURGICAL HISTORYQuadruple coronary artery bypass graftingALLERGIESNo Known AllergiesMEDICATIONSCurrent home medication list reviewed:Patient's Medications START taking these medications No medications on file CONTINUE taking these medications which have NOT CHANGED AMLODIPINE 10 MG TABLET Take 1 tablet by mouth daily. START taking Modified Medications as Prescribed No medications on file STOP taking these medications No medications on file FAMILY HISTORYNo family history on file.SOCIAL HISTORYSocial History Socioeconomic History Marital status: Single No tobacco/no alcohol/no drug useREVIEW OF ILTTPZO88 systems negative except per HPIPHYSICAL EXAMINATIONBP (!) 162/89 | Pulse 80 | Temp 37.2 ?C (98.9 ?F) (Oral) | Resp 14 | Ht 1.651 m (5' 5") | Wt 108.9 kg (240 lb) | SpO2 96% | BMI 39.94 kg/m? General: No acute distressHEENT: Normal oal mucosa, anicteric sclerae, NCATCardiovascular: RRRLungs: Symmetric expansion, CTABAbdomen: Soft, NTNDMusculoskeletal: No synovitis, normal muscle massGenitourinary: NormalSkin: No rash, lesionsNeuro: AAOx3, no focal deficitsPsych: Normal affectLABS - reviewed pertinent labs as below:CBC BMP PT/INR WBC (10*3/?L) Date Value 06/28/2023 11.27 (H) NA (mmol/L) Date Value 06/28/2023 141 No results found for: "PT" RBC (10*6/?L) Date Value 06/28/2023 4.92 K (mmol/L) Date Value 06/28/2023 4.2 No results found for: "PTINR" PLT (10*3/?L) Date Value 06/28/2023 210 CALCIUM (mg/dL) Date Value 06/28/2023 9.5 HGB (g/dL) Date Value 06/28/2023 15.8 CL (mmol/L) Date Value 06/28/2023 102 aPTT HCT (%) Date Value 06/28/2023 44.9 BUN (mg/dL) Date Value 06/28/2023 19 No results found for: "APTTPAT" CREATININE (mg/dL) Date Value 06/28/2023 1.16 IMAGING - reviewed, pertinent results as below: Hospital Encounter on 06/28/23 XR CHEST 1 VW Narrative EXAM: XR CHEST 1 VWHISTORY: 52 years-old Male; Provided indication: Chest pain . Historyobtained from EPIC: "mid center chest pain since yesterday morning 0500."TECHNIQUE: Single frontal view of the chest.COMPARISON: CT abdomen obtained on 04/19/2018FINDINGS:The lungs are well-inflated. No focal opacity or pleural abnormalitiesvisualized.The cardiomediastinal silhouette is borderline accounting for technique.Intermediate density over the left heart likely reflects pericardial fat aspreviously utilized on CT. No acute osseous abnormality is seen. CABG changes and intact sternotomywires are noted. Impression No radiographic evidence of acute cardiopulmonary process.Preliminary Report Dictated by Resident: Rogerio Rothman ASSESSMENT:1. Chest pain rule out acute coronary syndrome in a patient with coronary artery bypass grafting x42. History of statin therapy for atherosclerotic disease3. History of diabetes4. History of hypertensionPLAN:1. Chest pain rule out acute coronary syndrome; serial troponins and EKG and echocardiogram in the morning. Keep n.p.o. after midnight for cardiology intervention2. History of atherosclerotic disease; continue with antiplatelet therapy, statin therapy, and O2 per protocol.3. History of diabetes/hypertension; counseled regarding strict blood sugar control and blood pressure controlDVT prophylaxis: enoxaparinStress ulcer prophylaxis: Continue with steroids as prescribedCode status: FullAdvanced Care Planning (Z71.89)Above assessment and plan discussed at length with patient, patient expressed full understanding. Questions and concerned addressed.Surrogate decision maker: Level of care expected after discharge: Time spent: 2 minutes discussing the advanced care planSmoking Cessation: (Z71.6)Tobacco user?: noPatient will require ObservationTexas COMMUNITY RELATIONS ADVISOR [place] [address]-0Uqczbav and physical rpvaGG5375-01-89Z09:14:40History and physical noteTXT1.2.840.427488.1.13.104.2.7.2.50648 9|[id number] for patient nizv11675-4Lcotsjy and physical noteLNUT[address] Hk[id number] TSTWIZMRMPVNFAGI6136-31-89Y27:14:401.2.840 .444417.1.72.3.15|1.2.840.597596.1.13.104. 2.7.2.727879_[id number] [facility] Notes Date/Time Note Provider Source 2023-07-03 14:35:58 4057-85-69I11:35:58 ----- Message from Bettie Lange sent at 07/03/2023 9:16 AM CDT -----Regarding: RE: Follow up apptCalled patient to schedule and no voicemail was set up.----- Message -----From: Genevieve Dobbs MDSent: 07/01/2023 10:50 PM CDTTo: [facility] PssSubject: Follow up appt Needs follow up with Dr Godfrey in 2-3 weeks. 44329-4Luihguflt encounter PzgbFN0700-85-99S47:35:58Telephone encounter NoteTXT1.2.840.056363.1.13.104.2.7.2.7278 79|[id number] for patient fmoa85487-4DypqNKSYEOMGQC14 [address] StreetDqzb[id number] ZXTOXQPAOOKHTDYJZ9844-59-53X93:35:581.2.8 40.566566.1.72.3.15|1.2.840.964521.1.13.1 04.2.7.2.727879_[id number] [facility] 2023-06-30 15:54:30 9779-43-35Y35:54:30 Problem: Discharge PlanningGoal: Adequate for dischargeOutcome: Adequate for dischargeGoal: Adequate to move to next level of careOutcome: Adequate for dischargeGoal: Knowledge of medication managementOutcome: Adequate for discharge Problem: PainGoal: Control of pain at or below patient's documented comfort goalOutcome: Adequate for dischargeGoal: Reduction in pain sensationOutcome: Adequate for discharge Problem: Skin integrity Impaired (Risk or Actual)Goal: Prevention of new skin breakdownOutcome: Adequate for discharge Problem: Falls, Risk ofGoal: Absence of fallsOutcome: Adequate for discharge Problem: Venous Thromboembolism, (actual or risk of)Goal: Absence of venous thromboembolism (Risk)Outcome: Adequate for discharge Problem: Discharge PlanningGoal: Adequate for dischargeOutcome: Adequate for dischargeGoal: Effective communicationOutcome: Adequate for discharge 75464-9Atsw of care thuzQQ3346-02-06A88:54:32Plan of care noteTXT1.2.840.071585.1.13.104.2.7.2.7278 79|[id number] for patient chwg84338-9EeoaMJ067484953Fboykgx C Johnson RN[address] StreetVp[id number] YCDYVLFSSQCDBNCGW4283-07-88F97:54:321.2.8 40.840145.1.72.3.15|1.2.840.072891.1.13.1 04.2.7.2.727879_[id number] Citlaly Valdez RN [facility] 2023-06-30 14:34:01 2087-24-57S61:34:01 Problem: Discharge PlanningGoal: Adequate for dischargeOutcome: Progressing as expectedGoal: Adequate to move to next level of careOutcome: Progressing as expectedGoal: Knowledge of medication managementOutcome: Progressing as expected Problem: PainGoal: Control of pain at or below patient's documented comfort goalOutcome: Progressing as expectedGoal: Reduction in pain sensationOutcome: Progressing as expected Problem: Skin integrity Impaired (Risk or Actual)Goal: Prevention of new skin breakdownOutcome: Progressing as expected Problem: Falls, Risk ofGoal: Absence of fallsOutcome: Progressing as expected Problem: Venous Thromboembolism, (actual or risk of)Goal: Absence of venous thromboembolism (Risk)Outcome: Progressing as expected Problem: Discharge PlanningGoal: Adequate for dischargeOutcome: Progressing as expectedGoal: Effective communicationOutcome: Progressing as expected 52987-2Hvmc of care hcwyUE7674-59-78U31:34:05Plan of care noteTXT1.2.840.989454.1.13.104.2.7.2.7278 79|[id number] for patient nggc75098-3WzzfUA586497792Drczgvv Roye RN[address] StreetZfjjU[id number] YGZINLJKSXVYSAJPX5554-99-70F02:34:051.2.8 40.906295.1.72.3.15|1.2.840.365255.1.13.1 04.2.7.2.727879_[id number] Mary Richey RN [facility] 2023-06-29 23:49:57 1473-37-54J59:49:57 Problem: Discharge PlanningGoal: Adequate for dischargeOutcome: Progressing as expectedGoal: Adequate to move to next level of careOutcome: Progressing as expectedGoal: Knowledge of medication managementOutcome: Progressing as expected Problem: PainGoal: Control of pain at or below patient's documented comfort goalOutcome: Progressing as expectedGoal: Reduction in pain sensationOutcome: Progressing as expected Problem: Skin integrity Impaired (Risk or Actual)Goal: Prevention of new skin breakdownOutcome: Progressing as expected Problem: Falls, Risk ofGoal: Absence of fallsOutcome: Progressing as expected Problem: Venous Thromboembolism, (actual or risk of)Goal: Absence of venous thromboembolism (Risk)Outcome: Progressing as expected Problem: Discharge PlanningGoal: Adequate for dischargeOutcome: Progressing as expectedGoal: Effective communicationOutcome: Progressing as expected 38215-3Jrtp of care owygAU2571-26-34G94:50:00Plan of care noteTXT1.2.840.467656.1.13.104.2.7.2.7278 79|[id number] for patient lcdn64497-3KiufKAMJPPFFQF[address] [id number] VWYNHAJZFNZAYTTLS8670-01-14Q34:50:001.2.8 40.490931.1.72.3.15|1.2.840.273827.1.13.1 04.2.7.2.727879_[id number] [facility] 2023-06-29 18:59:33 1862-75-97V60:59:33 Problem: Discharge PlanningGoal: Adequate for dischargeOutcome: Progressing as expectedGoal: Adequate to move to next level of careOutcome: Progressing as expectedGoal: Knowledge of medication managementOutcome: Progressing as expected Problem: PainGoal: Control of pain at or below patient's documented comfort goalOutcome: Progressing as expectedGoal: Reduction in pain sensationOutcome: Progressing as expected Problem: Skin integrity Impaired (Risk or Actual)Goal: Prevention of new skin breakdownOutcome: Progressing as expected Problem: Falls, Risk ofGoal: Absence of fallsOutcome: Progressing as expected Problem: Venous Thromboembolism, (actual or risk of)Goal: Absence of venous thromboembolism (Risk)Outcome: Progressing as expected Problem: Discharge PlanningGoal: Adequate for dischargeOutcome: Progressing as expectedGoal: Effective communicationOutcome: Progressing as expected 77155-9Kihx of care blasFK8984-51-10S90:59:36Plan of care noteTXT1.2.840.617475.1.13.104.2.7.2.7278 79|[id number] for patient hwrr61530-5FxueKE416585924Wfclniuj Rosales RNUT[address] [id number] RUPNBPRTNPYVDALBU0613-39-16D21:59:361.2.8 40.015590.1.72.3.15|1.2.840.420644.1.13.1 04.2.7.2.727879_[id number] Cesia Ya RN [facility] 2023-06-29 03:52:16 5339-39-38G16:52:16 Problem: Discharge PlanningGoal: Adequate for dischargeOutcome: Progressing as expectedGoal: Adequate to move to next level of careOutcome: Progressing as expectedGoal: Knowledge of medication managementOutcome: Progressing as expected Problem: PainGoal: Control of pain at or below patient's documented comfort goalOutcome: Progressing as expectedGoal: Reduction in pain sensationOutcome: Progressing as expected Problem: Skin integrity Impaired (Risk or Actual)Goal: Prevention of new skin breakdownOutcome: Progressing as expected Problem: Falls, Risk ofGoal: Absence of fallsOutcome: Progressing as expected Problem: Venous Thromboembolism, (actual or risk of)Goal: Absence of venous thromboembolism (Risk)Outcome: Progressing as expected Problem: Discharge PlanningGoal: Adequate for dischargeOutcome: Progressing as expectedGoal: Effective communicationOutcome: Progressing as expected 01305-7Zvmk of care vfzsCE6634-09-50D60:52:19Plan of care noteTXT1.2.840.956977.1.13.104.2.7.2.7278 79|[id number] for patient myyp90955-6FhzaGFSFYOKOMV14 [address] StreetNmsz[id number] HFSJSIMMFKNBJJAKH0355-48-57Y33:52:191.2.8 40.570540.1.72.3.15|1.2.840.034912.1.13.1 04.2.7.2.727879_[id number] [facility] 2023-06-29 00:12:35 0020-28-11N31:12:35 Patient admitted [facility] for diagnosis of CPPatient agrees to admission, discussed plan of care with patient and family.Patient is awake, alert, oriented, resp reg unlabored, color appropriate for race, PIV intact No adverse reaction to medications administered while in EDBelongings with patient to unitReport to Daisy [address]8541-6Ebzfqvsda[address] [place] [address] NufzSN4089-95-81T86:13:12[facility] NoteTXT1.2.840.101420.1.13.104.2.7.2.7278 79|[id number] for patient sirt47678-7AnjaWSRWLPOWTT36 [address] [id number] ZATDPZZMSMAMVHQCD6146-82-32Z52:13:121.2.8 40.399244.1.72.3.15|1.2.840.667396.1.13.1 04.2.7.2.727879_[id number] [facility] 2023-06-28 23:13:25 4741-12-28G26:13:25 Pt care assumed. 94589-5Urzlagrkn department GzogQD1778-87-74R52:15:09[facility] NoteTXT1.2.840.310057.1.13.104.2.7.2.7278 79|[id number] for patient azrv54047-4FqwpJTOQLLWSAO[id number] GOPYHKBXGELQCDXSA8807-09-08V50:15:091.2.8 40.940337.1.72.3.15|1.2.840.817310.1.13.1 04.2.7.2.727879_[id number] [facility] 2023-06-28 22:34:01 3717-53-80F53:34:01 Patient's mid sternal chest pressure has decreased to 3/10. Color pink, NSR on monitor. Patient resting comfortably now. Dr Jasso at bedside [address]27-4Azyqxixzc[address] GyddAS9273-51-56N01:35:19[facility] NoteTXT1.2.840.963419.1.13.104.2.7.2.7278 79|[id number] for patient sowp20832-8HxbaXW956937440Ktmzpoe M Owens [id number] LNDIKJCADMCQRZMSC4880-85-18J43:35:191.2.8 40.875635.1.72.3.15|1.2.840.133073.1.13.1 04.2.7.2.727879_[id number] Mg Pulido RN [facility] 2023-06-28 22:18:00 9876-33-71J98:18:00 Third dose NTG 0.4 mg SL administered for mid sternal chest pressure 5/10. BP 159/76, pulse 84. O2 remains in place at 2 liters/min via N/C [address]73-8Dlrqzkysr[address] SykcOS0625-27-19O02:24:58[facility] NoteTXT1.2.840.737718.1.13.104.2.7.2.7278 79|[id number] for patient ahjg86159-8PfmyZCEFYXGJYT09 [id number] ORIOUAWOJPXXRWJJT8668-50-80L38:24:581.2.8 40.453760.1.72.3.15|1.2.840.515851.1.13.1 04.2.7.2.727879_[id number] [facility] 2023-06-28 22:05:00 9485-75-32L56:05:00 Second dose NTG 0.4 mg SL administered as ordered for persistent mid sternal chest pressure 7/10. BP 161/81, pulse 86. Color pink. [address]-4Idpthywqy[address] QzvkZY9049-79-43F80:22:58[facility] NoteTXT1.2.840.586657.1.13.104.2.7.2.7278 79|[id number] for patient yrob10602-6JekbFXOKTEPECV36 [address] [id number] WESTERN CAROLINA HOSPITALYDHAGBTRWAFVVMYYH4605-54-51F77:22:581.2.8 40.063006.1.72.3.15|1.2.840.188315.1.13.1 04.2.7.2.727879_[id number] [facility] 2023-06-28 21:58:00 2600-30-52U67:58:00 NTG 0.4 mg SL administered as per order for mid sternal chest pressure 7/10. BP 192/93, pulse 86. 16949-7Pbgdnadja department XqlePU2458-14-08I19:21:11[facility] NoteTXT1.2.840.286837.1.13.104.2.7.2.7278 79|[id number] for patient fljw34923-4NrsxQKIVKGQFOY36 [address] [id number] 92773KYUWPYYCQZQYVTTYV8960-42-44Q93:21:111.2.8 40.737107.1.72.3.15|1.2.840.107535.1.13.1 04.2.7.2.727879_[id number] [facility] 2023-06-28 21:53:56 7100-39-33J33:53:56 Patient also reports pain mid back that occasionally radiates to neck 80901-5Dlxaabnhi department WqqmSG6639-89-62N71:54:53[facility] NoteTXT1.2.840.956053.1.13.104.2.7.2.7278 79|[id number] for patient pqvc33262-8OsyvVCSMEQDSWY14 [address]OgyqWsiyeyqooSaeygmewxZVNN7780418268IZZLN PKLPRMZKYAPCRNWZH2537-79-69G91:54:531.2.8 40.899773.1.72.3.15|1.2.840.940431.1.13.1 04.2.7.2.727879_[id number] [facility] 2023-06-28 21:38:47 0022-76-86J40:38:47 CC: Pt reports mid center chest pain since yesterday morning 0500. Pt reports a little sweating, states pain is worsening. 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 00242-3Uydhyeahj department Triage jiudSA5609-18-45O74:40:56[facility] Triage noteTXT1.2.840.269880.1.13.104.2.7.2.7278 79|[id number] for patient gzzg88928-2Ibezifyya department ReelYR241812437Wmvwkq R Shehadeh RNUT82 Mc[address]hon StreetDfwtXkyxspuukUugsbwrayNRSW9159007437GOLWL CQJIXONUYRTNQEFEH0509-64-19E30:40:561.2.8 40.234341.1.72.3.15|1.2.840.792775.1.13.1 04.2.7.2.727879_[id number] Kamilah Watters RN [facility] 2023-06-28 21:17:00 9385-84-73E94:17:00 AdmissionCareGuideline: Chest Pain - OBS, ObservationBased on the indications selected for the patient, the bed status of Admit to Observation was determined to be METThe following indications were selected as present at the time of evaluation of the patient: Chest pain (or other anginal equivalent) not classified as low risk for acute coronary syndrome, as indicated by 1 or more of the following:- - Patient classified as intermediate risk or high risk for acute coronary syndrome (eg, via use of a clinical decision tool or risk calculator (eg, HEART score greater than 3))Troponin results indeterminant or otherwise indicate need for monitoring and retesting beyond emergency department treatment time frame- Troponin elevation alone does not indicate acute myocardial infarction; factors to consider include:- AdmissionCare documentation entered by: Berny Romans GroupLaureate Psychiatric [facility] – [facility] [employer], 27th edition, Copyright ? 2022 [facility] [employer] [facility] All Rights Reserved.4293-20-19Q24:08:06-05:00Electro nically signed by Berny Jasso DO at 06/28/2023 11:08 PM [id number] Admission Criteria1.2.840.294118.1.13.104.2.7.4.737 880.72729478-51-82D82:08:06EC Admission CriteriaTXT1.2.840.550749.1.13.104.2.7.2. 818063|[id number] for patient ntyw05724-5YulfLIBETHIBYA50 [address] StreetKmjdXhzsfeqtuYvpqcouiaUXTY9729183777HOOIY STENIVEAZVHGTXZLV6528-99-97Q59:08:061.2.8 40.246891.1.72.3.15|1.2.840.469381.1.13.1 04.2.7.2.727879_[id number] [facility] 2023-04-28 13:19:00 U87277299746r2+TydoFX/uMSo+kH4KrGOlE++hW Q UEF+3j6m0I0kwbr7a+3i7UknPYHK6SBCQwU1297-7 04-28T13:19:284632-2156 [place] [address] PATIENT NAME: SHEKHAR LOZADA ADMIT DATE: 04/20/23ACCOUNT NO: [id number] ROOM NO: G.4497 AGE: 52 REPORT TYPE: 360 - QUERY RESPONSE DOCUMENT SEX: M ADMITTING PHYSICIAN:Jessi Chavez MD ATTENDING PHYSICIAN:Jessi Chavez MD Provider Query QUERY TEXT: Condition General 360MD Query related questions should be directed to: [facility] [place] Coding Query Helpline Based on your medical judgment and the clinical indicators listed below, can you identify the underlying cause of the patient's type 2 NJ ( CAD, Hypertension, DM , chest pain, unspecified, or other more appropriate diagnosis) The patient's Clinical Indicators include:ED PHYSICIAN RECORD 04/20/2023 (2)Discharge diagnosis:- Diabetes type 2.GLUCOSE (mg/dL) 158HInsulin Lispro 100 units/mL Inj (HumaLOG)CHEST PAIN- ED, HNP , CONSULTATION, PROGRESS, DSHis symptoms are related to Elevated BP. He will go home today - Progress note 04/21hydrALAZINE 20 mg/1 mL Inj - MAR Options provided:-- Respond - Create new note now-- Dismiss - Not applicable / Not valid-- Dismiss - Clinically unable to determine / Unknown-- Assign to another provider QUERY RESPONSE: unspecified, Query created by: Ever Cruz on 04/27/2023 6:41 AM QUERY TEXT: Relationship Diagnoses General 360MD Query related questions should be directed to:[facility] [place] Coding Query Helpline Please clarify the relationship, if any, between CHEST PAIN and [ NSTEMI -2]. The patient's Clinical Indicators include:NEED CAUSE AND EFFECT RELATIONSHIP QUERY FOR CHEST PAIN AND NSTEMI -2ECHOCARDIOGRAM 04/21/2023 (1)Indications:Chest Pain, unspecified.Cardiology Consultation 04/20/2023 (5)HPI:He presents back to the emergency room with complaints of chest pains occurring occasionally at rest.He states the chest pain started about 2 days ago has been waxing and waning.He reports the chest pains occur at different places throughout his chest, substernally, right and left- sided.Free Text DxA P Notes:Chest painOptions provided:-- Yes-- No-- Other - I will add my own diagnosis-- Dismiss - Not applicable / Not valid-- Dismiss - Clinically unable to determine / Unknown-- Assign to another provider QUERY RESPONSE: No, I am not in agreement with the cause/effect relationship between the diagnosis documented above. Query created by: Teresa Angeles on 04/28/2023 1:45 AM at 1319 PATIENT NAME: SHEKHAR LOZADA noteG.[id number] for patient jfxcWDGTMDWQJULZGN2973-31-37U27:19:32 [facility] 2023-04-26 20:59:00 [id number]dW5t o JWz5WecpPbKo6oVTaYoWhRfM21MVItaAsz10217-4 04-26T20:59:766523-[address] [place], [place] [address] PATIENT NAME: SHEKHAR LOZADA ADMIT DATE: 04/20/23ACCOUNT NO: [id number] ROOM NO: G.4497 AGE: 52 REPORT TYPE: 360 - QUERY RESPONSE DOCUMENT SEX: M ADMITTING PHYSICIAN:Jessi Chavez MD ATTENDING PHYSICIAN:Jessi Chavez MD Provider Query QUERY TEXT: Condition General 360MD Query related questions should be directed to: [facility] [place] Coding Query Helpline [ Based on your medical judgement, can you provide the known or suspected condition that represents the clinical indicators below (NSTEMI, TYPE II NJ, Demand ischemia, or Other more appropriate diagnosis)? The patient's Clinical Indicators include:- Elevated troponin, could be demand ischemia, type 2; Discharge Summary 04/21/2023 (2)Chest pain; Discharge Summary 04/21/2023 (2)Initially transported to [facility] and then was transferred to [facility] for concerns for possible NSTEMI.; Cardiology Consultation 04/20/2023 (1)EKG from 04/20/2023 at 0147, performed for chest pain; ED PHYSICIAN RECORD 04/20/2023 (1)Troponin I High Sens (0 - 54 ng/L) 45; ED PHYSICIAN RECORD 04/20/2023 (9)ASPIRIN 81 MG TAB.CHEW 10:09 1 MG Oral; mar Options provided:-- Respond - Create new note now-- Dismiss - Not applicable / Not valid-- Dismiss - Clinically unable to determine / Unknown-- Assign to another provider QUERY RESPONSE: Type 2 mi Query created by: Loli Rao on 04/25/2023 3:18 AM at 2059 PATIENT NAME: SHEKHAR LOZADA noteG.[id number] for patient yilrLAXOCCBDSZERWU6762-77-82R49:00:38 [facility] 2023-04-21 10:28:00 [id number]t2p d LVTM5OE0oJfhnKgL57xhGqa1K1TTKtjdYP07412-0 0:28:00 [facility] ([facility])Discharge SummaryREPORT#:[id number] REPORT STATUS: SignedDATE:04/21/23 TIME: 1028 PATIENT: SHEKHAR LOZADA UNIT #: [id number]#: [id number] [address] AGE: 52 SEX: M ATTEND: Jessi Chavez MDADM AUTHOR: Rod Hancock SECURITY AND COMPLIANCE PROJECT MANAGER * ALL edits or amendments must be made on the electronic/computer document * Rod Hancock 04/21/23 1028:PCP PCPPCP:PCP: Eric Crabtree MD Discharge to: home General InformationDate of admission:Observation Start Date: Date of admission: 04/20/23 Discharge date: 04/21/23Discharge diagnosis:- Chest pain.- Elevated troponin, could be demand ischemia, type 2.- Malignant hypertension.- History of hypertension.- History of hyperlipidemia.- Diabetes type 2.- Coronary artery disease status post coronary artery bypass graft.Hospital course:52-year-old male with a past medical history of hypertension, hyperlipidemia, CAD, status post CABG, came to the emergency room with the chest pain. Pain wassharp and nonradiating. His pain level was 7/10. The patient came to the emergency room for further evaluation. His initial workup revealed blood pressure 197/88 with a heart rate of 63. Further workup revealed elevated troponin. He was seen by Cardiology and CV surgery. His symptoms are related to Elevated BP. He will go home today.Consultants: cardiology, cardiovascular surgeryPt. condition on discharge: improved, stable Med Rec Med RecDischarge meds:Continue taking these medications:CLOPIDOGREL (PLAVIX) 75 MG TAB 75 MILLIGRAM ORAL DAILY. Qty = 30 FERROUS SULFATE (FEOSOL) 325 MG (65 MG IRON) TAB 325 MILLIGRAM ORAL DAILY. Qty = 30 AMIODARONE (PACERONE) 200 MG TAB 200 MILLIGRAM ORAL TWICE DAILY. Qty = 21 Instructions: PLEASE TAKE 200 MG Q/12H FOR 1 WEEK 200 MG DAILY FOR ANOTHER WEEK AND STOP ATORVASTATIN (LIPITOR) 40 MG TAB 40 MILLIGRAM ORAL 2100 Qty = 30 METOPROLOL TARTRATE (LOPRESSOR) 25 MG TAB 25 MILLIGRAM ORAL EVERY 12 HOURS. Qty = 60 ASPIRIN (ASPIRIN) 81 MG TAB.CHEW 81 MILLIGRAM ORAL DAILY. Qty = 30 FUROSEMIDE (LASIX) 20 MG TAB 20 MILLIGRAM ORAL DAILY. 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)( Diet: Cardiac)( Activity: Resume Normal Activity, As Tolerated Follow-up AppointmentsPCP follow up: PCP: Eric Crabtree MD PCP follow up timeframe: In 2-3 weeksConsulting provider 1: Provider 1: David Gallardo MD Specialty: Cardiology Consult follow up timeframe: In 2-3 weeks Jessi Chavez 04/22/23 2358:Attestations Physician AttestationAgree w/findings plan:Patient seen and examined, I agree with the findings and plan as discussed with and documented by Rod Hancock NP at 1029 at 0000 RPT #:[id number] OF REPORTDSDischarge ifddkcp6236-24-42G31:28:00G.CPAS48675415- 0450AVAvailable for patient pcvnPYTAGBYUNERVKA0983-76-16D01:29:56 [facility] 2023-04-21 10:14:00 [id number]NL0m 6 p5D8H1PlQPZp55pUNQ6nAkYVmIth0VeGa6I2311-4 0:14:00 [facility] CenterHospital[facility] Progress NoteREPORT#:[id number] REPORT STATUS: SignedDATE:04/21/23 TIME: 1014 PATIENT: SHEKHAR LOZADA UNIT #: [id number]#: [id number] [address] AGE: 52 SEX: M ATTEND: Jessi Chavez MDADM AUTHOR: Rod Hancock SECURITY AND COMPLIANCE PROJECT MANAGER * ALL edits or amendments must be made on the electronic/computer document * Rod Hancock 04/21/23 1014:SubjectiveChief complaint:He is feeling better.CP is resolved.No N/v/d.No SOB.BP and HR stable. Review of SystemsConstitutional:Reports: fatigue, generalized weakness. Allergy/Immun:Denies: anaphylaxis, hives, itching, sneezing. ENT:Denies: ear ringing, hearing loss, nose bleeding, tongue pain. Respiratory:Denies: KISER (dyspnea on exertion), non productive cough, pleuritic pain, productive cough (sputum). Cardiovascular:Denies: KISER (dyspnea on exertion), edema, palpitations. GI:Denies: anorexia, constipation, dysphagia, hematemesis, hiatal hernia. :Denies: dysuria, flank pain, frequency, penile discharge, testicular pain. Musculoskeletal:Denies: extremity pain, extremity swelling, joint swelling, lumbar pain. Heme:Denies: bleeding, bruising. Neuro:Denies: change in LOC, gait problem, seizure, unable to speak. Objective GeneralVS/I O:Vital Signs: Date Time Temp Pulse Resp B/P B/P Pulse O2 O2 Flow FiO2 Mean Ox Delivery Rate 04/21 0821 36.7 61 16 188/90 122.4 94 Room air 04/21 0413 36.4 69 18 144/83 103.2 96 04/21 0342 36.6 76 16 162/94 116.5 97 Room air 04/21 0112 36.6 73 16 169/78 108.1 95 / 2308 36.4 74 16 176/87 116.7 96 / 1907 36.7 72 22 177/89 118.1 96 04/20 1641 36.6 63 19 180/93 122.0 96 Room air 04/20 1200 65 15 156/83 111 95 07/06 1130 61 16 159/97 121 92 07/06 1101 69 16 168/98 124 92 24 hour I O ending at 0700: 0707 0700 07/06 1900 Intake Total 350 Output Total Balance 350 Intake, Oral 350 Number Voids 1 2 PATIENT WEIGHT: Weight (lb): Weight (oz): Weight (kg): 109.091 Medications:Active Meds + DC'd Last 24 HrsAmiodarone HCl (CORDARONE) 200 MG DAILY PO (DC) Amiodarone HCl (Pacerone) 100 MG DAILY PO Amlodipine Besylate (NORVASC) 5 MG DAILY PO Atorvastatin Calcium (LIPITOR) 40 MG 2100 PO Insulin Human Lispro (HUMALOG) 0 AC HS SUBQ Hydralazine HCl (APRESOLINE) 10 MG Q4H PRN PRN IV Indomethacin (INDOCIN) 50 MG Q12H PO Hydrocodone Bitart/Acetaminophen (NORCO 5/325) 1 TAB Q4H PRN PRN PO Amiodarone HCl (CORDARONE) 200 MG DAILY PO (DC) Carvedilol (COREG) 12.5 MG BID@0900,2100 PO Colchicine (COLCRYS) 0.6 MG BID PO Indomethacin (INDOCIN) 50 MG BID PO (DC) Losartan Potassium (COZAAR) 50 MG BID PO Aspirin (ASPIRIN) 81 MG DAILY PO Clopidogrel Bisulfate (Plavix) 75 MG DAILY PO Ferrous Sulfate (FERROUS SULFATE) 325 MG DAILY PO Furosemide (LASIX) 20 MG DAILY PO Acetaminophen (TYLENOL) 650 MG Q4H PRN PRN PO Ondansetron HCl (ZOFRAN) 4 MG Q6H PRN PRN IV Dietitian nutrition assessmentThe data set between the solid lines has been imported from the dietitian's assessment. BMI Calculated: 38.8Nutrition related diagnosis: Nutrition diagnosis details: Nutrition problem: Nutrition etiology: Nutrition signs and symptoms: Nutrition prescription: Dietitian name: Assessment completed: Physical ExamGeneral appearance: alert, awake, orientedHead/Eyes: atraumatic, normocephalic, PERRLANeck: supple/no meningismus, no bruit/NL carotids, no JVDCardiovascular: normal capillary refill, normal heart sounds, regular rate rhythmRespiratory: aerating well, symmetric expansion, no distressAbdomen: non-tender, normal bowel sounds, softGenitourinary: no bladder distention, no flank pain, no urinary catheterExtremities: no calf tenderness, no clubbing, no cyanosisMusculoskeletal: no muscle spasmNeuro/NEURO UROLOGIST: alert, oriented X 3, CNII-XII intact ResultsFindings/Data:Laboratory Tests 04/21 04/20 04/20 0817 1855 1640 Chemistry POC Glucose (70 - 110 MG/DL) 189 H 155 H 187 H Radiology data:Recent Impressions:RADIOLOGY - XR CHEST 1 V 04/20 2011 Report Impression - Status: SIGNED Entered: 04/20/20232109 IMPRESSION:1. No active disease.2. Poststernotomy changes. 3. Mild cardiomegally. Impression By: [email or web address] - Higinio Ramirez M.D. Results: labs reviewed, vital signs reviewed, vital signs stable, current med profile rev'd Treatment Prophylaxis Treatment ProphylaxisOxygen: room air Diagnosis, Assessment PlanHospital course to date:ASSESSMENT: - Chest pain.- Elevated troponin, could be demand ischemia, type 2.- Malignant hypertension.- History of hypertension.- History of hyperlipidemia.- Diabetes type 2.- Coronary artery disease status post coronary artery bypass graft. PLAN: Floor.Pain medication.Antiemetics.Follow labs and replace as needed.Glycemic control, Accu-Chek before meals, sliding scale and diabetic diet.Continue home medication.Monitor. Code status: full codePlan discussed with: patient, admitting physician, consultants, nurse Jessi Chavez 04/22/23 1046:Attestations Physician AttestationAgree w/findings plan:Patient seen and examined, I agree with the findings and plan as discussed with and documented by Rod Hancock NP at 1017 at 0000 RPT #:[id number] OF REPORTPRProgress wixf2711-74-45W01:14:00G.JFQM75700561-523 7AVAvailable for patient yeseBOCVSQWCFXUWWC6305-45-10S57:17:22 [facility] 2023-04-21 09:12:00 [id number]/tliN18pYQxGgiX85iraDXb4aK8 x OuFyBPOYu56AZH+V5tCWDMx7vkVw7eDAnax1457-9 09:12:849798-8025 [place] [address] PATIENT NAME: SHEKHAR LOZADA ADMIT DATE: 04/20/23ACCOUNT NO: [id number] ROOM NO: G.4417 AGE: 52 REPORT TYPE: eECHOCARDIOGRAM REPORT SEX: M ADMITTING PHYSICIAN:Jessi Chavez MD ATTENDING PHYSICIAN:Jessi Chavez MD *[place], [place] [address]Phone: Wfu: [phone] Transthoracic Echocardiogram Patient: Shekhar LozadaStudy Date: 04/20/2023 BP: 176 / 78 [id number] 1970 Age: 52 Height: 66 in / 167.6 cmAccession#: [id number] Gender: M Weight: 239.5 lb / 108.9 kgBMI/BSA: 38.7 kg/m 2 / 2.3 m 2 *Ordering Physician: * Zabrina Ruiz Physic *Interpreting Physician: * David Gallardo MD*Blow Molder: * Sakina Buchanan [facility] Indication s: Chest Pain, unspecified. Study data: Transthoracic echocardiogram. Procedure: Transthoracicechocardiography was performed. Image quality was fair. Complete 2D,complete spectral Doppler, and color Doppler. Location: Bedside.Patient status: Inpatient. Patient room number: ER11. Study status:Routine. Findings Left ventricle: The cavity size is normal. Wall thickness is increased.Systolic function is at the lower limits of normal. The estimatedejection fraction is 50-54%. Wall motion is normal; there are noregional wall motion abnormalities. Doppler parameters are consistentwith abnormal left ventricular relaxation (grade 1 diastolicPATIENT NAME: SHEKHAR LOZADA dysfunction).Right ventricle: The cavity size is normal. Systolic function isnormal.Left atrium: The atrium is mildly dilated.Right atrium: The atrium is mildly dilated.Aorta: The aorta is not visualized.Aortic valve: The valve is trileaflet. There is no evidence ofstenosis. There is no regurgitation.Mitral valve: The valve is structurally normal. There is noevidence of stenosis. There is trivial regurgitation.Tricuspid valve: The valve is structurally normal. There is trivialregurgitation.Pulmonic valve: The valve is structurally normal. There is noevidence of stenosis.Pericardium: A prominent pericardial fat pad is present. There is nopericardial effusion.Pulmonary arteries:Main pulmonary artery: The artery is of normal size.Systemic veins:Inferior vena cava: The vessel is normal in size. Measuremen ts Left ventricle Value 01/08/2023 Ref TIFFANY, LAX 5.4 cm 5.1 4.2 - 5.8 ESD, LAX 3.4 cm 3.6 2.5 - 4.0 ESD/bsa, 1.5 cm/m 2 1.7 1.3 LAX - 2.1 FS, LAX 38 % 29 25 - 43 ESD/bsa 2.9 cm/m 2 3.3 ---- major ax, A4C TIFFANY/bsa 2.9 cm/m 2 3.3 ---- minor ax, A4C TIFFANY major 8.5 cm 8.7 ---- ax, A2C ESD major 6.7 cm 8.0 ---- ax, A2C TIFFANY/bsa 3.7 cm/m 2 4.0 ---- major ax, A2C ESD/bsa 2.9 cm/m 2 3.7 ---- major ax, A2C PW, ED 1.2 cm 1.5 0.6 -PATIENT NAME: SHEKHAR LOZADA 1.0 IVS/PW, ED 1.05 0.9 ---- EF 67 % 52 52 - 72 E', lat 7.5 cm/sec 4.0 >=10 dane, TDI .0 E/e', lat 08 06 ---- dane, TDI E', med 6.4 cm/sec 3.9 >=7. dane, TDI 0 E/e', med 22 ---- dane, TDI E', avg, 6.9 cm/sec 4.0 ---- TDI E/e', avg, 09 06 <=14 TDI LVOT Value 01/08/2023 Ref Diam, S 2.01 cm 2.22 ---- Area 3.2 cm 2 3.9 ---- Peak emory, 1.19 m/sec 1.41 ---- S Mean emory, 0.86 m/sec 1.04 ---- S VTI, S 28.7 cm 23.2 ---- Peak grad, 6 mm Hg 8 ---- S Mean grad, 3 mm Hg 5 ---- S SV 91 ml 89 ---- Qs 6.34 L/min 6.6 ---- Qs/bsa 2.8 L/(min-m 2) 3.1 ---- SV/bsa 39 ml/m 2 42 ---- Ventricular septum Value 01/08/2023 Ref IVS, ED 1.3 cm 1.3 0.6 - 1.0 Right ventricle Value 01/08/2023 Ref TAPSE, MM 2.3 cm 1.1 1.7 - 3.1 Left atrium Value 01/08/2023 Ref AP dim, ES 4.29 cm 4.95 3.00 - 4.00 Vol/bsa, 18 ml/m 2 23 12 - ES, 1-p 37 A4C Vol, ES, 42 ml 61 ---- 2-p Vol/bsa, 18 ml/m 2 28 16 -PATIENT NAME: SHEKHAR LOZADA ES, 2-p 34 Vol/bsa, 18 ml/m 2 25 16 - ES, A/L 34 AP dim, ES 4.7 cm 4.5 3.0 MM - 4.0 LA/Ao root 1.25 1.09 ---- ratio, MM Right atrium Value 01/08/2023 Ref Area, ES 14 cm 2 13 10 - 18 Aortic valve Value 01/08/2023 Ref Leaflet 2.36 cm 1.95 ---- sep, MM Peak v, S 1.62 m/sec 1.73 ---- Mean v, S 1.11 m/sec 1.12 ---- VTI, S 30.9 cm 25.6 ---- Mean grad, 5.4 mm Hg 5.8 ---- S Peak grad, 10.5 mm Hg 11.9 ---- S LVOT/AV, 0.93 0.91 ---- VTI ratio TIFFANIE, VTI 2.94 cm 2 3.50 ---- LVOT/AV, 0.73 0.82 ---- Vpeak ratio TIFFANIE, Vmax 2.32 cm 2 3.15 ---- Mitral valve Value 01/08/2023 Ref Peak E 0.73 m/sec 0.88 ---- Peak A 0.98 m/sec 0.67 ---- Mean v, D 0.66 m/sec ---- VTI 28.6 cm ---- leaflet coapt Decel time 286 ms 205 ---- PHT 88 ms 50 ---- Mean grad, 2.0 mm Hg ---- D Peak grad, 4.6 mm Hg 3.1 ---- D Peak E/A 0.75 1.31 ---- ratio MVA, PHT 2.5 cm 2 4.4 ---- Pulmonic valve Value 01/08/2023 Ref PA v, ED 0.7 m/sec 0.74 ---- Aortic root Value 01/08/2023 Ref Root diam 2.9 cm <4.4 Root diam, 3.74 cm 4.11 ----PATIENT NAME: SHEKHAR LOZADA ED MM Ascending aorta Value 01/08/2023 Ref AAo AP 3.5 cm 3.9 ---- diam, S AAo AP 1.5 cm/m 2 1.8 ---- diam/bsa, S Conclusion s Summary: 1. Left ventricle: The cavity size is normal. Wall thickness is increased. Systolic function is at the lower limits of normal. The estimated ejection fraction is 50-54%. Wall motion is normal; there are no regional wall motion abnormalities. Doppler parameters are consistent with abnormal left ventricular relaxation (grade 1 diastolic dysfunction).2. Left atrium: The atrium is mildly dilated.3. Right atrium: The atrium is mildly dilated.4. Mitral valve: There is trivial regurgitation.5. Tricuspid valve: There is trivial regurgitation. Prepared and electronically signed by David Gallardo MD04/21/2023 09:12 at 0912 PATIENT NAME: SHEKHAR LOZADA T09:12:00G.[id number] for patient auruBXAZYUSRQDRIRE4209-34-30T46:13:09 [facility] 2023-04-21 08:45:00 [id number]hRfR I GUilF8GQ45eMtBVOoJTxmp/b9gxs68E+s0c7457-8 08:45:00 [facility] CenterCard[facility] Progress NoteREPORT#:[id number] REPORT STATUS: SignedDATE:04/21/23 TIME: 0845 PATIENT: SHEKHAR LOZADA UNIT #: [id number]#: [id number] [address] [birth year] AGE: 52 SEX: M ATTEND: Jessi Chavez [facility] AUTHOR: David Gallardo MD * ALL edits or amendments must be made on the electronic/computer document * SubjectiveChief complaint:CPHPI:52-year-old gentleman with past medical history of hypertension, coronary arterydisease who underwent coronary artery bypass graft surgery on 01/02/2023. He underwent CABG x4, BURDICK to LAD, SVG to ramus, SVG to OM, SVG to PDA.He did well postoperatively was discharged home in 7 days. He presents back to the emergency room with complaints of chest pains occurring occasionally at rest. Denies any shortness of breath. He states the chest painstarted about 2 days ago has been waxing and waning. He reports the chest painsoccur at different places throughout his chest, substernally, right and left-sided. Denies any radiating pains to the jaw or back Initially transported to [facility] and then was transferred to [facility] for concerns for possible NSTEMI. Upon admission, the patient is resting comfortable.Labs reviewed his troponin came back at 43. BNP 95 Renal function normal Objective GeneralVS/I O:24 hour I O ending at 0700: 07 0700 04/20 1900 Intake Total 350 Output Total Balance 350 Intake, Oral 350 Number Voids 1 2 Vital Signs: Date Time Temp Pulse Resp B/P B/P Pulse O2 O2 Flow FiO2 Mean Ox Delivery Rate 04/21 0821 98.1 61 16 188/90 122.4 94 Room air 07/ 0413 97.5 69 18 144/83 103.2 96 / 0342 97.9 76 16 162/94 116.5 97 Room air / 0112 97.9 73 16 169/78 108.1 95 07/06 2308 97.5 74 16 176/87 116.7 96 / 1907 98.1 72 22 177/89 118.1 96 /06 1641 97.9 63 19 180/93 122.0 96 Room air 07/ 1200 65 15 156/83 111 95 07/06 1130 61 16 159/97 121 92 07/06 1101 69 16 168/98 124 92 07/06 1010 59 13 189/93 133 93 PATIENT WEIGHT: Weight (lb): Weight (oz): Weight (kg): 109.091 Medications:Active Meds + DC'd Last 24 HrsAmiodarone HCl (CORDARONE) 200 MG DAILY PO (DC) Amlodipine Besylate (NORVASC) 5 MG DAILY PO (UNVr) Atorvastatin Calcium (LIPITOR) 40 MG 2100 PO Insulin Human Lispro (HUMALOG) 0 AC HS SUBQ Hydralazine HCl (APRESOLINE) 10 MG Q4H PRN PRN IV Indomethacin (INDOCIN) 50 MG Q12H PO Hydrocodone Bitart/Acetaminophen (NORCO 5/325) 1 TAB Q4H PRN PRN PO Amiodarone HCl (CORDARONE) 200 MG DAILY PO Carvedilol (COREG) 12.5 MG BID@0900,2100 PO Colchicine (COLCRYS) 0.6 MG BID PO Indomethacin (INDOCIN) 50 MG BID PO (DC) Losartan Potassium (COZAAR) 50 MG BID PO Amiodarone HCl (CORDARONE) 200 MG BID PO (DC) Aspirin (ASPIRIN) 81 MG DAILY PO Clopidogrel Bisulfate (Plavix) 75 MG DAILY PO Ferrous Sulfate (FERROUS SULFATE) 325 MG DAILY PO Furosemide (LASIX) 20 MG DAILY PO Metoprolol Tartrate (LOPRESSOR) 25 MG Q12HR PO (DC) Acetaminophen (TYLENOL) 650 MG Q4H PRN PRN PO Ondansetron HCl (ZOFRAN) 4 MG Q6H PRN PRN IV Physical ExamGeneral appearance: alert, awake, orientedNeck: normal thyroid, supple/no meningismus, no bruit/NL carotids, no JVDCardiovascular: CV assessment: regular rate and rhythmRespiratory: decreased breath sounds, no distressAbdomen: soft, non-tender, normal bowel soundsLower extremity: LE assessment: no edemaNeuro/NEURO UROLOGIST: alert, oriented X 3, normal speech ResultsFindings/Data:Laboratory Tests 04/20 04/20 1855 1640 Chemistry POC Glucose (70 - 110 MG/DL) 155 H 187 H Radiology data:Recent Impressions:RADIOLOGY - XR CHEST 1 V 04/20 2011 Report Impression - Status: SIGNED Entered: 04/20/20232109 IMPRESSION:1. No active disease.2. Poststernotomy changes. 3. Mild cardiomegally. Impression By: [id number] - Higinio Ramirez M.D. Results: labs reviewed, vital signs reviewed, vital signs stable Diagnosis, Assessment Plan Free Text DxA P NotesFree Text DxA P Notes:CARDS COVER FOR DR ARNDT 1. Chest pain 2. CAD (coronary artery disease) 3. Aortocoronary bypass status 4. Paroxysmal atrial fibrillation 5. HTN (hypertension), benign 6. Hyperlipidemia 7. Old [place] (myocardial infarction) PLAN:::S/P CABG x 4 (BURDICK-LAD, SVG-Ramus, SVG-OM, SVG-PDA) 01/02/23ALAAPosterior pericartiotomyCONTINUE DAPPAF ON AMIOD POS/P KAYLEY LIGATIONOPTIMIZE BP CONTROLADD RAAS AGENT AND SWITCH METOPROLOL TO CARVEDILOLADD COLCHICINE AND SHORT COURSE OF INDOCINDECREASE AMIOD 200 MG DAILYREPEAT ECHO 04/21/23:-STABLE-ON INDOCIN + COLCHICINE-ADD NORVASC FOR BETTER BP CONTROL-DECREASE AMIOD 100 MG DAILY-OK TO DC HOME-F/U WITH DR ARNDT , NEXT WEEK at 2344 RPT #:[id number] OF REPORTPRProgress inde7599-80-61L38:45:00G.[id number] 4AVAvailable for patient doawCKZGKKZFSFWGTS1809-00-92O97:44:54 [facility] 2023-04-20 23:28:00 [id number]Csb L M3t0hSthCKdEEbFgJT2NIJXIPWMzxIvbpyy4363-2 04-20T23:28:[id number] [place] [address] PATIENT NAME: SHEKHAR LOZADA ADMIT DATE: 04/20/23ACCOUNT NO: [id number] ROOM NO: G.4497 AGE: 52 REPORT TYPE: eELECTROCARDIOGRAM REPORT SEX: M ADMITTING PHYSICIAN:Jessi Chavez MD ATTENDING PHYSICIAN:Jessi Chavez MD Order:[id number] Reason : , Test Date/Time Stamp:MonApr 20 2023 23:28:44Blood Pressure : / mmHGVent. Rate : 075 BPM Atrial Rate : 075 BPM P-R Int : 182 ms QRS Dur : 150 ms QT Int : 464 ms P-R-T Axes : 063 -53 041 degrees QTc Int : 518 ms Normal sinus rhythmRight bundle branch blockLeft anterior fascicular block Bifascicular block Possible Inferior infarct (cited on or before 20-APR-2023)Abnormal ECGWhen compared with ECG of 20-APR-2023 01:47,Significant changes have occurredConfirmed by DAVID GALLARDO ([id number]) on 04/26/2023 9:01:20 PM Referred By: Jessi Chavez Confirmed by:DAVID GALLARDO at 2101 PATIENT NAME: SHEKHAR LOZADA .[id number] for patient meebXAEQILHLPKUDDB3687-64-07P27:01:38 [facility] 2023-04-20 08:55:00 [id number]kWi7 Q el19A8vz8Oc0cZ+HhmNBFjc3C1USjbjvH8R2643-1 08:55:00 [facility] CenterCardiology ConsultationREPORT#:[id number] REPORT STATUS: SignedDATE:04/20/23 TIME: 08 PATIENT: SHEKHAR LOZADA UNIT #: [id number]#: [id number] ROOM/BED: [place] [address]DOB: [birth year] AGE: 52 SEX: M ATTEND: Jessi Chavez [facility] AUTHOR: David Gallardo MD * ALL edits or amendments must be made on the electronic/computer document * History of Present Illness HPIRequesting Clinician: DR Ryan for consult:[facility] complaint:CPPCP:PCP: Eric Crabtree MD HPI:52-year-old gentleman with past medical history of hypertension, coronary arterydisease who underwent coronary artery bypass graft surgery on 01/02/2023. He underwent CABG x4, BURDICK to LAD, SVG to ramus, SVG to OM, SVG to PDA.He did well postoperatively was discharged home in 7 days. He presents back to the emergency room with complaints of chest pains occurring occasionally at rest. Denies any shortness of breath. He states the chest painstarted about 2 days ago has been waxing and waning. He reports the chest painsoccur at different places throughout his chest, substernally, right and left-sided. Denies any radiating pains to the jaw or back Initially transported to [facility] and then was transferred to [facility] for concerns for possible NSTEMI. Upon admission, the patient is resting comfortable.Labs reviewed his troponin came back at 43. BNP 95 Renal function normal History - Adult longitudinalPast medical history:Reports: Hypertension. Denies: Diabetes mellitus. 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 Objective GeneralVS/I O:Vital Signs: Date Time Temp Pulse Resp B/P B/P Pulse O2 O2 Flow FiO2 Mean Ox Delivery Rate 04/20 0730 59 14 163/95 123 92 07/06 0415 68 20 170/95 125 95 07/06 0315 69 15 163/70 109 94 07/06 0301 65 15 188/93 134 94 07/06 0200 70 18 182/97 133 97 07/06 0115 63 22 157/74 106 96 07/06 0050 98.1 63 18 197/88 124 97 Room air 24 hour I O ending at 0700: 07/06 0700 07/05 1900 Intake Total Output Total Balance Patient 109.091 kg Weight Weight Stated/Reported Measurement Method PATIENT WEIGHT: Weight (lb): Weight (oz): Weight (kg): 109.091 Medications:Active Meds + DC'd Last 24 HrsAtorvastatin Calcium (LIPITOR) 40 MG 2100 PO Amiodarone HCl (CORDARONE) 200 MG BID PO (PEND) Aspirin (ASPIRIN) 81 MG DAILY PO Clopidogrel Bisulfate (Plavix) 75 MG DAILY PO Ferrous Sulfate (FERROUS SULFATE) 325 MG DAILY PO Furosemide (LASIX) 20 MG DAILY PO Metoprolol Tartrate (LOPRESSOR) 25 MG Q12HR PO Acetaminophen (TYLENOL) 650 MG Q4H PRN PRN PO Ondansetron HCl (ZOFRAN) 4 MG Q6H PRN PRN IV Acetaminophen (TYLENOL EXTRA STRENGTH) 1,000 MG X1ED STA PO (DC) Physical ExamGeneral appearance: alert, awake, orientedNeck: normal thyroid, supple/no meningismus, no bruit/NL carotids, no JVDCardiovascular: CV assessment: regular rate and rhythmRespiratory: decreased breath sounds, no distressAbdomen: soft, non-tender, normal bowel soundsLower extremity: LE assessment: no edemaNeuro/NEURO UROLOGIST: alert, oriented X 3, normal speech Diagnosis, Assessment Plan Free Text DxA P NotesFree Text DxA P Notes:CARDS COVER FOR DR ARNDT 1. Chest pain 2. CAD (coronary artery disease) 3. Aortocoronary bypass status 4. Paroxysmal atrial fibrillation 5. HTN (hypertension), benign 6. Hyperlipidemia 7. Old [place] (myocardial infarction) PLAN:::S/P CABG x 4 (BURDICK-LAD, SVG-Ramus, SVG-OM, SVG-PDA) 01/02/23ALAAPosterior pericartiotomyCONTINUE DAPPAF ON AMIOD POS/P KAYLEY LIGATIONOPTIMIZE BP CONTROLADD RAAS AGENT AND SWITCH METOPROLOL TO CARVEDILOLADD COLCHICINE AND SHORT COURSE OF INDOCINDECREASE AMIOD 200 MG DAILYREPAET ECHO at 0921 RPT #:[id number] OF REPORTDHUuughonnvmuz6188-68-93G07:55:0 0G.SMXR00786569-1326EAMijnmcbsq for patient xbanKQPBXGXORZJRMK4953-84-86X56:12:15 [facility] 2023-04-20 06:53:00 [id number]/X6/jdh7Kf1/YHbxwkf/mSNTl m TXVXcBccUpQUwvwh0Ew7c1uEGrtwrYHuXcq0302-2 06:53:00 [facility] CenterClinical NoteREPORT#:[id number] REPORT STATUS: SignedDATE:04/20/23 TIME: 652 PATIENT: SHEKHAR LOZADA UNIT #: [id number]#: [id number] ROOM[facility]BED: [facility]7-1DOB: [birth year] AGE: 52 SEX: M ATTEND: Jessi Chavez AUTHOR: Rod Hancock [employer]NAGER * ALL edits or amendments must be made on the electronic/computer document * Rod Hancock 04/20/23 0653:Clinical NoteNote:Yobany P # [id number] Jessi Chavez 04/20/23 1900:Clinical NoteNote:Patient seen and examined, I agree with the findings and plan as discussed with and documented by Rod Hancock NP at 0653 at 1909 RPT #:[id number] OF REPORTCLClinical syly7457-02-16Y74:53:00G.YARS98053986-724 1AVAvailable for patient qbudGQXNJSUPTTZONA1980-50-42P57:54:18 [facility] 2023-04-20 06:53:00 [id number]+AhndAWBv7B/C rAuqFopteff2ehxvDL2stxc06IQINCDyq0z4793-8 06:53:294535-3688 [place] [address] PATIENT NAME: SHEKHAR LOZADA ADMIT DATE: 04/20/23ACCOUNT NO: [id number] ROOM NO: G.[facility] AGE: 52 REPORT TYPE: HISTORY AND PHYSICAL SEX: M ADMITTING PHYSICIAN:Jessi Chavez MD ATTENDING PHYSICIAN:Jessi Chavez MD ADMISSION DATE: 04/20/2023 02:58:00 CHIEF COMPLAINT: Chest pain. HISTORY OF PRESENT ILLNESS: This is a 52-year-old male with a past medical history of hypertension, hyperlipidemia, CAD, status post CABG, came to the emergency room with the chest pain. Pain was sharp and nonradiating. His pain level was 7/10. The patient came to the emergency room for further evaluation. His initial workup revealed blood pressure 197/88 with a heart rate of 63. Further workup revealed elevated troponin. The patient admitted to the hospitalfor further evaluation. Currently, he is awake, alert, and orientated x3, following command. ALLERGIES: NO KNOWN ALLERGY. PAST MEDICAL HISTORY: Hypertension, hyperlipidemia, diabetes, CAD, status post CABG. PAST SURGICAL HISTORY: CABG. FAMILY HISTORY: Noncontributory to illness. SOCIAL HISTORY: Former smoker. Denies any illicit drug, but occasional alcohol. MEDICATIONS: Per MAR, reviewed and reconciled. REVIEW OF SYSTEMS: All 14-point systems reviewed, pertinent positive and negative listed in HPI as above, otherwise negative. PHYSICAL EXAMINATION:GENERAL: The patient is awake, following command.VITAL SIGNS: Blood pressure is 175/98, pulse is 62, temperature 36.8, oxygen saturation 98%, respiratory rate is 18.HEENT: Normocephalic, atraumatic.NECK: Supple.CARDIOVASCULAR: Regular rhythm, S1, S2 present.RESPIRATORY: The patient is on room air. No signs of wheezing or crackle.GASTROINTESTINAL: Abdomen round, soft, nontender. Bowel sounds are present.GENITOURINARY: No signs of hematuria.MUSCULOSKELETAL: No signs of clubbing or cyanosis.ENDOCRINE: Stable.PSYCHIATRIC: Stable. PATIENT NAME: SHEKHAR LOZADA LABORATORY AND DIAGNOSTIC DATA: WBC 6.9, RBC 4.81, hemoglobin 14.7, hematocrit 44.5, platelet is 186. Chemistry: Sodium is 141, potassium 3.6, chloride 105, carbon dioxide 30, anion gap is 10, BUN is 14, creatinine 1.0, glucose is 158, calcium is 8.5, total bilirubin 0.4, magnesium is 2.6, AST 26, ALT 32, alkaline phosphatase 97, total CK is 44, BNP 95, total protein 6.8, albumin 4.0. IMAGING STUDIES: Chest x-ray unremarkable. ASSESSMENT:1. Chest pain.2. Elevated troponin, could be demand ischemia, type 2.3. Malignant hypertension.4. History of hypertension.5. History of hyperlipidemia.6. Diabetes type 2.7. Coronary artery disease status post coronary artery bypass graft. PLAN:1. Admit to the floor.2. Cardiology and CV Surgery consultation.3. Pain medication.4. Antiemetics.5. Follow labs and replace as needed.6. Glycemic control, Accu-Chek before meals [TIME: 02:45]sliding scale and diabetic diet.7. Continue home medication.8. Monitor. After assessment, discussed plan with the patient. Dictated By: Rod Hancock NP for Jessi Chavez MD Date Dictated: 04/20/2023 06:53:37Date Transcribed: 04/20/2023 07:44:20ST/Nikolai #: [id number] ID: [id number] by Rod Hancock On 04/20/2023 01:38:10 PM Authenticated by Jessi Chavez MD On 04/20/2023 07:10:12 PM at 0710 at 0138 PATIENT NAME: SHEKHAR LOZADA and physical mxputbolqmc4610-28-16N32:44:00G.DLJ090224 06-0023AVAvailable for patient gmkpRJMOEZCPVHREWC7735-09-90J18:10:52 [facility] 2023-04-20 05:56:00 [id number]a d 4YLmHfYxSIroCeM9GMR7dZ7KQZO/WO1jhpM7389-6 05:56:00 [facility] CenterCardiothoracic Surgery ConsultREPORT#:[id number] REPORT STATUS: SignedDATE:04/20/23 TIME: 0556 PATIENT: SHEKHAR LOZADA UNIT #: [id number]#: [id number] [address] [birth year] AGE: 52 SEX: M ATTEND: Jessi Chavez MDADM AUTHOR: Zabrina Ruiz Physic * ALL edits or amendments must be made on the electronic/computer document * Zabrina Ruiz 04/20/23 0556:History of Present Illness HPIChief complaint:chest pain, HX of CABGHPI:This is a 52-year-old gentleman with past medical history of hypertension, coronary artery disease who underwent coronary artery bypass graft surgery on 01/02/2023. He underwent CABG x4, BURDICK to LAD, SVG to ramus, SVG to OM, SVG to PDA.He did well postoperatively was discharged home in 7 days. He presents back to the emergency room with complaints of chest pains occurring occasionally at rest. Denies any shortness of breath. He states the chest painstarted about 2 days ago has been waxing and waning. He reports the chest painsoccur at different places throughout his chest, substernally, right and left-sided. Denies any radiating pains to the jaw or back Initially transported to [facility] and then was transferred to [facility] for concerns for possible NSTEMI. Upon admission, the patient is resting comfortable.Labs reviewed his troponin came back at 43. BNP 95 Renal function normal CV surgery consulted due to previous history of coronary artery bypass surgery HistoryPast Medical History:Reports: Hypertension. Denies: Diabetes mellitus. 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 Review of Systems Free Text ROS NotesFree Text ROS Notes:Constitutional: Negative for fever, chills, weight loss Skin: Negative for rash, negative for swelling negative for any laceration HEENT: Denies hearing loss denies any ear ringing denies any earache denies any sore throat denies any throat pain Respiratory: Denies dyspnea on exertion denies hemoptysis denies any cough denies any shortness of breath Cardiac: Positive for chest pains as stated in the HPIGI: Denies constipation denies diarrhea : Denies hematuria denies dysuria denies flank pain Musculoskeletal: Denies any joint pain denies any joint swelling denies any myalgia Hematologic: Denies any easy bruising, denies any bleeding Endocrine: denies any night sweats, denies polyuria polydipsia Neurologic: Denies any lightheaded denies any headache denies any confusion denies any dizziness Objective Physical ExamVS/I O:Last Documented: Result Date Time Pulse Ox 95 04/20 0415 B/P 170/95 / 0415 B/P Mean 125 04/20 0415 Pulse 68 04/20 0415 Resp 20 04/20 0415 O2 Delivery Room air 04/20 0050 Temp 98.1 04/20 0050 24 hour I O ending at 0700: 04/20 0700 04/19 1900 Intake Total Output Total Balance Patient 109.091 kg Weight Weight Stated/Reported Measurement Method PATIENT WEIGHT: Weight (lb): Weight (oz): Weight (kg): 109.091 General appearance: alert, awake, oriented Free Text Obj NotesFree Text Obj Notes: General: well nourished, well groomed, no acute distress. HEENT: conjunctiva clear, extraocular movement intact, PERRLA, sclera anicteric.normal dentition, gums, normal, oral mucosa without pallor or cyanosis. Neck: no, JVD, trachea midline, no, lymphadenopathy, neck supple, normal ROM. Respiratory: Expiratory wheezeCardiovascular: regular rate and rhythm, S1, S2, normal, without murmurs, rubs or gallops, pulses, palpable, symetric. Abdomen: Soft, non tender. No rebound. No guarding Extremities: dry, moves all. Musculoskeletal: Full range of motion, no CVA tenderness, no muscle spasm Skin: warm, dry, no, lesions, rash. Neurologic: Alert and oriented x3. Psychiatric: affect and demeanor normal Diagnosis, Assessment PlanFree Text A P:This is a 52-year-old gentleman with past medical history of hypertension, coronary artery disease who underwent coronary artery bypass graft surgery on 01/02/2023. He underwent CABG x4, BURDICK to LAD, SVG to ramus, SVG to OM, SVG to PDA.He did well postoperatively was discharged home in 7 days. He presents back to the emergency room with complaints of chest pains occurring occasionally at rest. Denies any shortness of breath. He states the chest painstarted about 2 days ago has been waxing and waning. Initially transported to [facility] and then was transferred to [facility] for concerns for possible NSTEMI. Upon admission, the patient is resting comfortable.Labs reviewed his troponin came back at 43. BNP 95 Renal function normal CV surgery consulted due to previous history of coronary artery bypass surgery Assessment/plan1. Coronary artery disease Status post coronary artery bypass surgery Sternum has healed well. There is no signs of infection. There is no popping or clicking in the sternum. We will obtain echo and chest x-ray.Cardiology has been consulted. Recommend further cardiac work-up as per their recommendations.From a CV surgical standpoint. The patient appears to have healed well from coronary artery bypass surgery 3 months ago. further recommendations to follow Eric Crabtree 05/09/23 1322:Attestations Physician AttestationAgree w/findings plan:I have seen and examined Mr. Lozada. I agree with the findings and plan asdocumented by MARY Molina. at 0820 at 1351 RPT #:[id number] OF REPORTFZBrtyfzkhlfzp1093-18-48U82:56:0 0G.[id number] for patient ogozILDQZQDSACFMVW3888-50-28Q56:21:12 [facility] 2023-04-20 02:04:00 [id number]/Jhg1vbjBZH5CFGBXb e NJjBS+ktgMQ9nlEoxqpSUdJrlfIe3zyE9LR7404-2 04-20T02:04:00 [facility] ([facility])EMERGENCY PROVIDER REPORTREPORT#:[id number] REPORT STATUS: SignedDATE:04/20/23 TIME: 0204 PATIENT: SHEKHAR LOZADA UNIT #: [id number]#: [id number] ROOM/BED: [place] [address]AGE: 52 SEX: M PCP PHYS: Eric Crabtree MDSERVICE AUTHOR: Ashvin Wolf MD * ALL edits or amendments must be made on the electronic/computer document * HPI-Chest Pain 40 and Over Free Text HPI NotesFree Text HPI Suunh35-adid-lrp man, history of CABG, here as a transfer for NSTEMI after patient reported intermittent right-sided chest pain, [facility] given enoxaparin, transferred for further evaluation given this was a surgical center. Patient reports no chest discomfort at this time, no shortness of breath, denies any recent fevers,chills, nausea, vomiting, cough. GeneralInitial Greet Date/Time 04/20/23 0119 PresentationChief Complaint Chest painSudden in Onset? No Risk-Chest Pain 40 and Over Risk Stratification)( HEART for MACE )( HEART for MACE Response Value History Low index of suspicion 0 ECG Interpretation Nonspec repol disturb 1 Age Age 45 - 65 1 Risk Factors for CAD 3+ CAD risk factors 2 Troponin 1 to 3x NL troponin 1 Total 5 Past Medical History - AdultStated Complaint NSTEMIAllergiesCoded Allergies:No Known Allergies (12/30/22) Home MedicationsActive ScriptsCLOPIDOGREL (PLAVIX) 75 MG PO DAILY CLOPIDOGREL (PLAVIX) 75 MG PO DAILY #30 TAB Ref 1 Prov: 01/08/23FERROUS SULFATE (FEOSOL) 325 MG PO DAILY FERROUS SULFATE (FEOSOL) 325 MG PO DAILY #30 TAB Ref 1 Prov: 01/08/23AMIODARONE (PACERONE) 200 MG PO BID AMIODARONE (PACERONE) 200 MG PO BID #21 TAB Prov: 01/08/23ATORVASTATIN (LIPITOR) 40 MG PO 2100 ATORVASTATIN (LIPITOR) 40 MG PO 2100 #30 TAB Prov: 01/08/23METOPROLOL TARTRATE (LOPRESSOR) 25 MG PO Q12HR METOPROLOL TARTRATE (LOPRESSOR) 25 MG PO Q12HR #60 TAB Prov: 01/08/23ASPIRIN 81 MG PO DAILY ASPIRIN 81 MG PO DAILY #30 TAB Ref 1 Prov: 01/08/23FUROSEMIDE (LASIX) 20 MG PO DAILY FUROSEMIDE (LASIX) 20 MG PO DAILY #10 TABS Prov: 01/08/23 Discontinued ScriptsHYDROcodone/APAP (HYDROcodone/APAP 5/325) 1 TAB PO Q6H HYDROcodone/APAP (HYDROcodone/APAP 5/325) 1 TAB PO Q6H #28 TABS Prov: 01/08/23 DC: 04/20/23 1133 Changed since prior admit Calculated Suicide Risk (nurs) No riskPast Medical History:Reports: Hypertension. Denies: Diabetes mellitus. 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 remodeling Physical Exam Vital SignsVital SignsFirst Documented: Result Date Time Pulse Ox 97 04/20 0050 B/P 197/88 / 0050 B/P Mean 124 04/20 0050 O2 Delivery Room air 04/20 0050 Temp 36.7 04/20 0050 Pulse 63 07/ 0050 Resp 18 04/20 0050 Last Documented: Result Date Time Pulse Ox 97 04/20 0200 B/P 182/97 04/20 0200 B/P Mean 133 04/20 0200 Pulse 70 04/20 0200 Resp 18 / 0200 O2 Delivery Room air 04/20 0050 Temp 36.7 04/20 0050 Review of Vital Signs Reviewed Interpretation Diagnostics Lab Results InterpretationResultsLaboratory Tests 04/20/23 0152:[Embedded Image Not Available]Laboratory Tests: 04/20 04/20 0152 0152 Chemistry Sodium (134 - 147 mEq/L) 141 Potassium (3.4 - 5.0 mEq/L) 3.6 Chloride (100 - 108 mEq/L) 105 Carbon Dioxide (21 - 33 mEq/l) 30 Anion Gap (0 - 20) 10 BUN (7 - 18 mg/dL) 14 Creatinine (0.6 - 1.3 mg/dL) 1.0 Glomerular Filtr Rate (90 - 95) 90.0 Glucose (70 - 110 mg/dL) 158 H Calcium (8.0 - 10.5 mg/dL) 8.5 Phosphorus (2.5 - 4.9 MG/DL) 3.2 Magnesium (1.80 - 2.40 mg/dL) 2.16 Total Bilirubin (0.0 - 1.0 mg/dL) 0.40 AST (15 - 37 IUnit/L) 26 ALT (30 - 65 IUnit/L) 32 Total Alk Phosphatase (20 - 125 IUnit/L) 97 Total Creatine Kinase (46 - 171 Units/L) 44 L Troponin I High Sens (0 - 54 ng/L) 45 B-Natriuretic Peptide (0 - 100 PG/ML) 95.0 Total Protein (6.4 - 8.2 g/dL) 6.8 Albumin (3.4 - 5.0 g/dL) 4.00 Hematology WBC (4.5 - 11.0 x10 3/uL) 6.9 RBC (4.00 - 5.60 x10 6/uL) 4.81 Hgb (12.5 - 16.9 g/dL) 14.7 Hct (37.5 - 50.7 %) 44.5 MCV (81.0 - 99.0 fL) 92.5 MCH (27.0 - 33.0 pg) 30.6 MCHC (33.0 - 37.0 g/dL) 33.0 RDW (11.5 - 14.5 %) 14.0 Plt Count (150 - 400 x10 3/uL) 186 MPV (7.0 - 9.0 fL) 9.9 H Neut % (Auto) (56.0 - 77.0 %) 67.3 Lymph % (Auto) (14.0 - 32.0 %) 21.7 Kane % (Auto) (4.8 - 9.0 %) 8.3 Eos % (Auto) (0.3 - 3.7 %) 2.0 Baso % (Auto) (0.0 - 2.0 %) 0.4 Neut # (Auto) (2.0 - 7.6 x10 3/uL) 4.62 Lymph # (Auto) (1.0 - 3.8 x10 3/uL) 1.49 Kane # (Auto) (0.1 - 0.8 x10 3/uL) 0.57 Eos # (Auto) (0.0 - 0.2 x10 3/uL) 0.14 Baso # (Auto) (0.0 - 0.2 x10 3/uL) 0.03 Abs Immat Gran (auto) (0.00 - 0.03 x10 3/uL) 0.02 Add Manual Diff NO Immature Gran % (0.0 - 2.0 %) 0.3 Nucleated RBC % (0 - 0 %) 0.0 Nucleated RBCs # (Man) (0.0 - 0.1 x10 3/uL) 0.00 Lab Imaging StatementLaboratory radiographic studies reviewed and interpreted by me, ED physician, and considered in the medical decision-making. ECG #1 InterpretationText/Dict NoteEKG from 04/20/2023 at 0147, performed for chest painInterpreted by myself, ED physicianSinus rhythm, rate 61Normal axisNormal PA, normal QTc, prolonged QRSNo ST elevation or ST depression suggestive of ischemia Re-Evaluation MDM Free Text MDM NotesFree Text MDM Spkju14-dwru-lki man, recent CABG earlier this year, transferred for NSTEMI from outside hospital, high-sensitivity troponin [facility] at >50,patient given enoxaparin, transferred here for further evaluation Additional evaluation at outside hospital for PE included CT PE, did not show any PE or acute abnormality Get labs here, evaluate for any increasing troponin, plan for admission with serial troponins, cardiology evaluation Re-Evaluation/Progress #1Text/Dict NoteShe will troponin here reassuring at 45, will continue admission, serial troponin ---Medical Decision Making Summary Complexity of Problems Addressed:Evaluated for multiple diagnoses as aboveSpecifically evaluated for the following diagnoses that could pose an acute threat to life or bodily function: NSTEMI, OMIOverall most suggestive of: Chest pain Data Review/Analysis:Tests ordered as aboveReview of test results as aboveReviewed outside records: [facility] with labs and imagingreportsDiscussion of patient management with: Hospitalist, who agrees with inpatient management of this patient. Risk of complications/morbidity/mortality of patient management:High risk due to need for inpatient evaluation and treatment.--- ED CourseMedication(s) OrderedMedication(s) Ordered:Central Nervous System Agents Sig/Dorothy Start time Last Medication Dose Route Stop Time Status Admin Acetaminophen 650 MG Q4H PRN PRN 04/20 0300 AC PO 04/22 2351 Acetaminophen 1,000 MG X1ED STA 04/20 0231 DC 04/20 PO 04/20 0232 0323 Gastrointestinal Drugs Sig/Dorothy Start time Last Medication Dose Route Stop Time Status Admin Ondansetron HCl 4 MG Q6H PRN PRN 04/20 0300 AC IV 04/22 2351 Patient Discharge Departure Vital Signs/ConditionVital SignsFirst Documented: Result Date Time Pulse Ox 97 04/20 0050 B/P 197/88 04/20 0050 B/P Mean 124 07/06 0050 O2 Delivery Room air 04/20 50 Temp 36.7 04/20 50 Pulse 63 04/20 50 Resp 18 04/20 50 Last Documented: Result Date Time Pulse Ox 97 04/20 200 B/P 182/97 04/20 200 B/P Mean 133 04/20 200 Pulse 70 04/200 Resp 18 04/200 O2 Delivery Room air 04/20 50 Temp 36.7 04/20 50 All vital signs available at the time of this entry have been reviewed. Condition Stable Clinical ImpressionClinical ImpressionPrimary Impression: NSTEMI (non-ST elevated myocardial infarction) Disposition DecisionHospitalize Hosp Physician Name Rod Hancock NP )( Accepts Hospitalization Yes )( Reason for HospitalizationNSTEMI )( Accepted Time 253 )( Accepted Date 04/20/23 Call Information will see patient Discharge/Care Plan Admit NoteI have spoken with the patient and/or caregivers. I have explained the patient'scondition, diagnoses and treatment plan based on the information available to meat this time. I have answered the patient's and/or caregiver's questions and addressed any concerns. The patient and/or caregivers have as good an understanding of the patient's diagnosis, condition and treatment plan as can beexpected at this point. The patient has been stabilized within the capability ofthe emergency department. The patient will be transported for further care and management or will be moved to an observation or inpatient service. I have communicated with the staff or medical practitioner taking over this patient's care. at 1209RPT #:[id number] OF REPORTEDEmeradvanced care hospital of [facility] department kkzcjs2213-01-00R43:04:00G.CJVJ77121809-7 024AVAvailable for patient yleuIYLFEBAFODIQSU2229-18-84G46:09:31 [facility] 2023-01-12 13:08:00 [id number] s /4xWuK3K301r0Jm7H9KR6Fx3KHgPnYysHL43386-2 3:08:986319-[address] [address] PATIENT NAME: SHEKHAR LOZADA ADMIT DATE: 12/30/22ACCOUNT NO: [id number] ROOM NO: [id number] AGE: 52 REPORT TYPE: 360 - QUERY RESPONSE DOCUMENT SEX: M ADMITTING PHYSICIAN:Eric Crabtree MD ATTENDING PHYSICIAN:Eric Crabtree MD Provider Query QUERY TEXT: Condition General 360MD Query related questions should be directed to: [email or web address] [Based on your clinical judgment, can you please provide a diagnosis (e.g. Hypovolemic Shock, Postoperative Shock, Cardiogenic, Distributive Shock, or Other More Appropriate Diagnosis) based on the clinical indicators below? The patient's Clinical Indicators include:Status post CABG x 4 (BURDICK-LAD, SVG-Ramus, SVG-OM, SVG-PDA) and ALAA Critical Care note 01/02Acute blood loss anemia Critical Care note 01/02BP - Systolic 93 - BP - Diastolic 49 - 01/03/2023 07:01BP - Systolic 90 - BP - Diastolic 48 - 01/03/2023 06:35Norepinephrine Bitartrate (NOREPINEPHRINE 8 MG/NS 250 ML) 250 ML TITRATE IV Consult 01/02 Options provided:-- Respond - Create new note now-- Dismiss - Not applicable / Not valid-- Dismiss - Clinically unable to determine / Unknown-- Assign to another provider QUERY RESPONSE: cardiogenic shock Query created by: Jluiane Nunes on 01/03/2023 11:21 AM at 1308 PATIENT NAME: SHEKHAR LOZADA noteG.[id number] for patient fkiwTROLTNTFBLYUDC0648-49-77L51:08:47 [facility] 2023-01-09 09:21:00 [id number] a 7J7CWXzeaLlmwy5Qzl5mf5rryOVut+Nh2SZ0880-8 01-09T09:21:00 [facility] ([facility])Pulmonology Progress NoteREPORT#:[id number] REPORT STATUS: SignedDATE:01/09/23 TIME: 920 PATIENT: SHEKHAR LOZADA UNIT #: [id number]#: [id number] [address] AGE: 52 SEX: M ATTEND: Eric Crabtree [facility] AUTHOR: Rod Hancock [employer]URITY AND COMPLIANCE PROJECT MANAGER * ALL edits or amendments must be made on the electronic/computer document * Rod Hancock 01/09/23 09:SubjectiveChief complaint:He is doing well.Breathing is stable.On RANo SOB, CP, f/c/r, N/V/D. Review of Systems ROSConstitutional:fatigue, generalized weakness. Skin:Denies: itching, laceration, rash. Allergy/Immun:Denies: anaphylaxis, itching, rhinorrhea. Eyes:Denies: visual loss/blurred, diplopia, eye pain. ENT:Denies: mouth pain, sinus problem, sore throat, throat pain. Respiratory:Reports: KISER (dyspnea on exertion), SOB. Denies: hemoptysis, pleurisy, pleuritic pain, pneumonia, productive cough (sputum). Cardiovascular:Reports: chest pain. Denies: KISER (dyspnea on exertion), orthopnea, palpitations. GI:Denies: constipation, GERD, hematochezia, melena. :Denies: flank pain, testicular swelling. Musculoskeletal:Denies: extremity pain, joint swelling, neck pain, thoracic pain. Heme:Denies: bleeding, bruising. Objective GeneralVS/I O:Last Documented: Result Date Time Pulse Ox 94 01/09 075 B/P 141/67 01/09 0753 B/P Mean 0.0 01/09 075 O2 Delivery Room air 01/09 753 Temp 36.9 01/09 075 Pulse 82 01/09 075 Resp 20 01/09 075 FiO2 21 01/08 1944 O2 Flow Rate 2 01/05 1945 24 hour I O ending at 0700: 01/09 0700 01/08 1900 Intake Total 480 Output Total Balance 480 Intake, Oral 480 Number 2 Bowel Movements Number Voids 4 Patient 109 kg Weight Weight Standing scale Measurement Method PATIENT WEIGHT: Weight (lb): 240Weight (oz): 4.86Weight (kg): 109.000 Medications:Active Meds + DC'd Last 24 HrsFurosemide (LASIX 20MG INJ) 20 MG ONCE ONE IV (DC) Magnesium Sulfate (MAGNESIUM SULFATE 2GM/SWFI 50ML) 50 ML ONCE ONE IV (DC) Oxycodone HCl (ROXICODONE) 5 MG Q4H PRN PRN PO Oxycodone HCl (ROXICODONE) 10 MG Q4H PRN PRN PO Amlodipine Besylate (NORVASC) 2.5 MG DAILY PO Metoprolol Tartrate (LOPRESSOR) 25 MG Q12HR PO Ipratropium Bent (ATROVENT) 500 MCG RTQ2H PRN PRN INH Cyanocobalamin (Vitamin B-12 500 mcg tab) 500 MCG DAILY PO Ferrous Sulfate (FERROUS SULFATE) 325 MG DAILY PO Lidocaine (LIDODERM) 1 PATCH DAILY TOPICAL Bisacodyl [...] (Senna Lax 8.6 MG TABLET) 17.2 MG BEDTIME PO Acetaminophen (TYLENOL) 650 MG Q4H PRN PRN PO Acetaminophen (TYLENOL) 650 MG Q4H PRN PRN RECTAL Dextrose/Water (DEXTROSE 10% IN WATER) 125 ML ASDIR PRN IV (CKD) Dextrose/Water (DEXTROSE 10% IN WATER) 250 ML ASDIR PRN IV (CKD) Glucagon (GLUCAGON) 1 MG ASDIR PRN IM Magnesium Sulfate (MAGNESIUM SULFATE 4GM/SWFI 100ML) 100 ML ASDIR PRN IV Magnesium Sulfate (MAGNESIUM SULFATE 2GM/SWFI 50ML) 50 ML ASDIR PRN IV Magnesium Sulfate/Dextrose (MAGNESIUM SULFATE 1GM/D5W 100ML) 100 ML ASDIR PRN IV Ondansetron HCl (ZOFRAN) 4 MG Q6H PRN PRN IV Sodium Chloride (SODIUM CHLORIDE) 20 ML ASDIR IV Physical ExamGeneral appearance: alert, awake, orientedHead/eyes: atraumatic, normocephalicNeck: no JVDCardiovascular: normal heart sounds, normal S1/S2, regular rate rhythmRespiratory/chest: aerating well, symmetric expansion, no distress, no tendernessAbdomen: soft, non-tender, no distentionGenitourinary: no bladder distention, no flank painExtremities: no edemaMusculoskeletal: normal inspectionNeuro/NEURO UROLOGIST: alert, oriented X 3, CNII-XII intact, no motor deficitsSkin: dry, intactPsychiatry: normal affect, normal mood ResultsFindings/Data:Laboratory Tests 01/09/23254:[Embedded Image Not Available]Laboratory Tests 01/09 255 Chemistry Sodium (134 - [...] % (Auto) (14.0 - 32.0 %) 16.5 Kane % (Auto) (4.8 - 9.0 %) 9.7 H Eos % (Auto) (0.3 - 3.7 %) 2.5 Baso % (Auto) (0.0 - 2.0 %) 0.3 Neut # (Auto) (2.0 - 7.6 x10 3/uL) 8.96 H Lymph # (Auto) (1.0 - 3.8 x10 3/uL) 2.12 Kane # (Auto) (0.1 - 0.8 x10 3/uL) 1.25 H Eos # (Auto) (0.0 - 0.2 x10 3/uL) 0.32 H Baso # (Auto) (0.0 - 0.2 x10 3/uL) 0.04 Abs Immat Gran (auto) (0.00 - 0.03 x10 3/uL) 0.16 H Add Manual Diff NO Immature Gran % (0.0 - 2.0 %) 1.2 Nucleated RBC % (0 - 0 %) 0.0 Nucleated RBCs # (Man) (0.0 - 0.1 x10 3/uL) 0.00 Radiology data:Recent Impressions:ULTRASOUND - DUP VEIN ALEXY 01/08 1551 Report Impression - Status: SIGNED Entered: 01/08/2023 1656 IMPRESSION: No evidence of deep vein thrombosis. Right saphenous femoral junction echogenic thrombusImpression By: [email or web address] - Martín Cuadra M.D.RADIOLOGY - XR CHEST 1 V 01/09 0707 Report Impression - Status: SIGNED Entered: 01/09/2023 0829 IMPRESSION: 1. Persistent left basilar opacity which may represent airspace disease and associated small left pleural effusion. 2. Left upper lobe linear opacity, suggesting discoid atelectasis. Impression By: [email or web address] Ally Arvizu M.D. Results: labs reviewed, vital signs reviewed, vital signs stable, current med profile rev'd Treatment Prophylaxis Treatment ProphylaxisOxygen: room airDrain(s)/tube(s): Drain(s)/tube(s): chest, urinary catheter Diagnosis, Assessment PlanFree Text A P:Assessment and Plan: - Dyspnea due to Multivessel CAD and Emphysema.- Emphysema/COPD.- Multivessel CAD.- CP due to CAD.- HX of HTN.- Smoker. - S/p CABG x 4 (BURDICK-LAD, SVG-Ramus, SVG-OM, SVG-PDA), ALAA, EVH (RGSV) and Posterior pericartiotomy. Plan: CVN1.Will go home soon.Will continue Monitor respiratory status, breathing tx, o2 support.Pain meds.Antiemetics.Follow labs and replace as needed.SCDs for DVT ppx.Continue Home meds.Monitor.Code status: full codePlan discussed with: patient, admitting physician, consultants, nurse Quality: Gen [facility] Crit Care Advanced Care Plan 65 or OlderDiscussed with: patient Jessi Chavez 01/11/23 0016:Attestations Physician AttestationAgree w/findings plan:Patient seen and examined, I agree with the findings and plans as documented by Rod Hancock NP at 0922 at 0039 RPT #:[id number] OF REPORTPRProgress ymhn9689-47-08O93:21:00G.[id number] 3AVAvailable for patient onazMJOJLKEECLEZKZ0089-91-98W72:23:05 [facility] 2023-01-09 09:05:00 [id number]+GA r h+YkMSfiXPZmTx7yIoDos2av676Pbh9Eb433856-5 01-09T09:05:[id number] [address] PATIENT NAME: SHEKHAR LOZADA ADMIT DATE: 12/30/22ACCOUNT NO: [id number] ROOM NO: [facility] AGE: 52 REPORT TYPE: eECHOCARDIOGRAM REPORT SEX: M ADMITTING PHYSICIAN:Eric Crabtree MD ATTENDING PHYSICIAN:Eric Crabtree MD *[address] [address]Bppch: [phone]: [phone] Transthoracic Echocardiogram Patient: Charley Lozada Date: 01/08/2023 BP: 143 / 92 [id number] 1970 Age: 52 Height: 65 in / 165.1 cmAccession#: [id number] Gender: M Weight: 243.5 lb / 110.7 kgBMI/BSA: 40.6 kg/m 2 / 2.15 m 2 *Interpreting Physician: * David Gallardo MD*Blow Molder: * Lucy Ardon Indication s: CAD, R/O PERICARDIAL EFFUSION. Study data: Transthoracic echocardiogram. Procedure: Transthoracicechocardiography was performed. Image quality was adequate. The studywas technically limited due to excessive abdominal air. Complete 2D,complete spectral Doppler, and color Doppler. Location: Bedside.Patient status: Inpatient. Patient room number: 3343. Study status:HEAVENLY. Findings Left ventricle: The cavity size is normal. Wall thickness is increased.Systolic function is at the lower limits of normal. The estimatedejection fraction is 50-54%. Wall motion is normal; there are noregional wall motion abnormalities. Left ventricular diastolic functionparameters are indeterminate.Right ventricle: Not well visualized. The cavity size is normal.PATIENT NAME: SHEKHAR LOZADA Systolic function is reduced. TAPSE measurement is estimated at 11 mm.Insufficient tricuspid regurgitation jet to estimate RVSP.Left atrium: The atrium is normal in size.Right atrium: The atrium is normal in size.Aorta: The aorta is not visualized. Aortic root: The aortic root isupper normal in size.Aortic valve: The valve is trileaflet. The leaflets are mildlythickened. There is no evidence of stenosis. There is noregurgitation.Mitral valve: The valve is structurally normal. There is noevidence of stenosis. There is mild regurgitation.Tricuspid valve: The valve is structurally normal. There is trivialregurgitation.Pulmonic valve: Not well visualized. The valve is structurallynormal. There is physiologic regurgitation.Pericardium: There is no pericardial effusion.Pulmonary arteries:The main pulmonary artery is normal-sized.Systemic veins:Inferior vena cava: The vessel is at the upper limits of normal in size.The respirophasic diameter changes are in the normal range (= 50%). Measuremen ts Left ventricle Value Ref TIFFANY, LAX 5.1 [...] dane, 4.0 cm/sec >=10.0 TDI E/e', lat dnae, 22 --------- TDI E', med dane, 3.9 cm/sec >=7.0 TDI E/e', med dane, 22 --------- TDI E', avg, TDI 4.0 cm/sec ---------PATIENT NAME: SHEKHAR LOZADA E/e', avg, TDI 22 <=14 LVOT Value [...] cm --------- Peak v, S 1.73 m/sec ---------PATIENT NAME: SHEKHAR LOZADA Mean v, S 1.12 m/sec --------- VTI, [...] cm 2 --------- Pulmonic valve Value Ref PA v, ED 0.74 m/sec --------- Aortic root Value Ref Root diam, ED 4.11 cm --------- MM Ascending aorta Value Ref AAo AP diam, S 3.9 cm --------- AAo AP 1.8 cm/m 2 --------- diam/bsa, S Conclusion s Summary: 1. Left ventricle: The cavity size is normal. Wall thickness is increased. Systolic function is at the lower limits of normal. The estimated ejection fraction is 50-54%. Wall motion is normal; there are no regional wall motion abnormalities. Left ventricular diastolic function parameters are indeterminate.2. Right ventricle: Systolic function is reduced.3. Mitral valve: There is mild regurgitation.4. Pericardium, extracardiac: There is no pericardial effusion. Prepared and electronically signed by David Gallardo MD01/09/2023 09:05 PATIENT NAME: KIERRASHEKHAR at 0905 PATIENT NAME: KIERRA,DAVID T09:05:00G.[id number] for patient zterVETZWPVIQUJQAY7430-15-82Q85:06:33 [facility] 2023-01-09 08:04:00 [id number]/[id number] 3 cZDUtKC3oEouD5z3oo5Ok9Zb2ab8gAv2QsL9963-5 08:04:00 [facility] ([facility])Cardiothoracic Surgery ProgREPORT#:[id number] REPORT STATUS: SignedDATE:01/09/23 TIME: 08 PATIENT: SHEKHAR LOZADA UNIT #: [id number]#: [id number] [address] AGE: 52 SEX: M ATTEND: Eric Crabtree [facility] AUTHOR: Zabrina Ruiz Physic * ALL edits or amendments must be made on the electronic/computer document * See AddendumGeneralPost-op: day 6Status post:01/02/23 CABG x 4 (BURDICK-LAD, SVG-Ramus, SVG-OM, SVG-PDA) ALAA EVH (RGSV) Posterior pericartiotomy SubjectiveChief complaint:s/p CABG Review of SystemsConstitutional:Denies: fever, malaise. Skin:Denies: rash. Allergy/Immun:Denies: anaphylaxis, hives, itching. Eyes:Denies: redness, discharge, swelling. ENT:Denies: ear drainage, ear ringing. Respiratory:Denies: SOB, wheezing. Cardiovascular:Denies: chest pain, KISER (dyspnea on exertion), edema. GI:Denies: constipation, diarrhea. :Denies: hematuria, nocturia. Musculoskeletal:Denies: joint pain, joint swelling. Heme:Denies: bleeding, bruising. Endocrine:Denies: polydipsia, polyuria. Neuro:Denies: confusion, dizziness. All systems rev neg: except as marked Objective GeneralVS/I OLast Documented: Result Date Time Pulse Ox 94 01/09 0753 B/P 141/67 01/09 0753 B/P Mean 0.0 01/09 0753 O2 Delivery Room air 01/09 075 Temp 98.4 01/09 075 Pulse 82 01/09 075 Resp 20 01/09 0753 FiO2 21 01/09 1944 O2 Flow Rate 2 01/05 1945 24 hour I O ending at 0700: 01/09 0700 01/08 1900 Intake Total 480 Output Total Balance 480 Intake, Oral 480 Number 2 Bowel Movements Number Voids 4 Patient 109 kg Weight Weight Standing scale Measurement Method PATIENT WEIGHT: Weight (lb): 240Weight (oz): 4.86Weight (kg): 109.000 Physical ExamGeneral appearance: alert, awake, orientedWound/incision: Location:sternal Site condition: dressing clean dry, dressing intactHEENT: anicteric, mucosal membranes moistNeck: full range of motion, non-tenderCardiovascular: BP/pulses equal bilat., regular rate rhythmRespiratory: crackles, decreased breath sounds, aerating well, symmetric expansion, no distressAbdomen: soft, non-tenderExtremities: dry, moves allMusculoskeletal: full range of motion, painless range of motionNeuro/NEURO UROLOGIST: alert, oriented X 3, normal speech, no motor deficitsSkin: dry, intactPsychiatry: normal affect, normal mood Treatment Prophylaxis Treatment ProphylaxisOxygen: nasal cannulaDrain(s)/tube(s): Drain(s)/tube(s): chest, urinary catheter Quality: Trauma Gen Surg Advanced Care Plan 65 or OlderDiscussed with: patient Diagnosis, Assessment PlanHospital course to date:This is a 52-year-old gentleman with a past medical history of hypertension who initially presented to an outside hospital with complaints of back pain, and chest pains.He reports the back pain as mid upper back pain that occurred over the last couple of weeks. Usually pain is worse with changing positionThe patient reports he started to develop chest pains located midsternal for thepast 2 weeks. He denies any radiating symptoms.Describes the chest pains as a heaviness, squeezing sensation. Denies any syncope, palpitations. Denies any nausea vomiting or diaphoresis. Patient underwent left heart catheterization by Dr. Felton at [facility] this showed multivessel CAD with a 90% LAD, 60-70% left main, 70-80% circumflex. An echocardiogram was also done at [facility] on 12/28/2022. This showed a normal left ventricular ejection fraction of 55-60%, moderate LVH, mild mitral regurgitation, grade 1 diastolic dysfunction. The patient does admit to smoking 1-2 times per week. Does admit to alcohol 1-2times per week. Patient does have a strong family history of coronary artery disease in his father and his grandmother.Denies any surgical history, Review of the records from [facility] show the patient was admitted with a troponin peak of 483. Hemoglobin A1c was noted to be 5.5. Renal function appears normal. Patient was transferred to [facility] for evaluation for coronary bypass graft surgery.Hemoglobin A1c noted to be 5.5 at [facility]' Assessment/plan1.coronary artery disease Begin work-up for coronary artery bypass graft with appropriate studies.2. Hypertension3. Chest pains Patient has been seen and examined by Dr. Crabtree. Work-up underway for coronary artery bypass graft surgery. Further recommendations to follow 12/31/22Patient resting comfortable denies pain.YFTv1Ghfxbmjnxwi: 100% oxygen on room air.Cardiac: Remains sinus rhythmGI: Denies constipation diarrhea positive bowel movement.: Voiding well.Carotid ultrasound shows no significant carotid artery stenosisVein mapping completeMRSA positive in the nares, on appropriate Bactroban intranasal treatment.Likely consider coronary artery bypass surgery early next week.Patient was seen and examined by Dr. Crabtree. Further recommendations to follow 01/01Patient resting comfortable denies pain.FUSg9Clilnkrfboo: 100% oxygen on room air.Cardiac: Remains sinus rhythmGI: Denies constipation or diarrhea, positive bowel movement.: Voiding well.MRSA positive in the nares, on appropriate Bactroban intranasal treatment.Pulmonary consulted for history of smoking and abnormal CT suggestive of emphysema.PFT hopefully to be completed in the morning. STS 0.39%Patient was seen and examined by Dr. Crabtree. Further recommendations to followCoronary artery bypass graft surgery was discussed with the patient. The risk of the operation including , bleeding, infection, heart attack, stroke, pneumonia, renal failure, dialysis, prolonged ICU stay, car tracheostomy, need for long-term rehabilitation were all discussed with the patient. Patient's questions were answered and the patient agreed to proceed with surgery. 01/03/23POD 1CABG x 4 (BURDICK-LAD, SVG-Ramus, SVG-OM, SVG-PDA), ALAA, EVH (RGSV), Posterior pericartiotomyPatient hemodynamically stable post operatively, not requiring pressors or inotropesOn 3l nasal cannula, wean off as tolerated to keep O2 sats > 92%, nebsEncourage deep breathing and incentive spirometer useLabs and chest x-ray reviewed-stableNSR on cardiac cath technologist, no ectopy, continue amio, bb, asa, plavix, lipitorKeep both chest tubes and monitorIncrease po intake, Cardiac diet, nutritional supplementsGlycemic control on insulin drip- monitor blood sugarsBowel regimen protocolPT/OT- ambulateKeep patient in CVICU, continue supportive carePatient seen with Dr. Crabtree, discussed plan of care with multidisciplinary team. 01/04 Patient is alert and oriented, up in the recliner, complaining of back painLeft pleural chest tube discontinued to minimize pain and facilitate deep breathingMultimodal pain controlChest x-ray showed atelectasis. Wean O2 as tolerated, encourage I-S and ambulationPulmonary toilet, MucomystDiscontinue central lineNormal renal function, discontinue Siddiqui catheterGlycemic controlKeep in CVICU for close monitoringPatient seen and plan reviewed with the Bro multidisciplinary team 01/05 Overall doing better today, pain improvedDiscontinue chest tubeChest x-ray reviewed. Gentle diuresis with Lasix 20 mg IV onceEncourage I-S and mobilizationPT/OTTransfer to intermediate carePatient seen and plan reviewed with the Bro multidisciplinary team 01/06/23POD 4Patient recovering well, no complaints.Alert, awake and oriented Breathing comfortable on room air, keep O2 sats > 92%I-S use encouraged and deep breathingNSR on cardiac monitorGood response to lasix, UOP 1450 last nightStrict I Os, daily weightsCardiac dietBowel regimenPain controlledSCDs for DVT prophylaxisTransfer to BJK0Yhbrvky seen with Dr. Crabtree and plan of care discussed with team. 01/07 Blood pressure on the high side. Increase metoprolol to 5 mg twice dailyChest x-ray reviewed. Respiratory status stable on room airLabs pending. Gentle diuresisDiscontinue pacing wires before dischargeEncourage I-S and mobilizationAnticipate discharge in the next 24 to 48 hours if remains in stable condition. Pt seen and plan reviewed with Dr Crabtree 01/09/23Patient resting comfortable. Denies complaintsPatient has been out of bed walking+BM. voiding well. Denies SOB. Cardiac: Sinus rhythmPacing wiires Dc/d yesterday. Awiting echo results.On ASA, Plavix , statin. BBLKR. Okay to DC home one Echo R/O effusion. at 0811 Addendum 1: 01/09/23 1008 by Zabrina Ruiz Echo show no effsuion. Okay to DC home today. at 1008 RPT #:[id number] OF REPORTPRProgress [id number]:04:00G.[id number] 1AVAvailable for patient qohyCSSDSGFBTMYPRR8793-25-56V18:11:53 [facility] 2023-01-08 14:28:00 [id number]/[id number]/LZEvSzaB O 10UcBbksT0rY5r3v2iy0Ad/5pxAFzsPsVEg1225-0 01-08T14:28:00 [facility] CenterCard[facility] Progress NoteREPORT#:[id number] REPORT STATUS: SignedDATE:01/08/23 TIME: 1428 PATIENT: SHEKHAR LOZADA UNIT #: [id number]#: [id number] [address] [birth year] AGE: 52 SEX: M ATTEND: Eric Crabtree [facility] AUTHOR: David Gallardo MD * ALL edits or amendments must be made on the electronic/computer document * SubjectiveChief complaint:Back pain. Objective GeneralVS/I O:24 hour I O ending at 0700: 01/08 0700 01/07 1900 Intake Total 360 Output Total 200 Balance 360 -200 Intake, Oral 360 Number 2 Bowel Movements Number Voids 3 Output, Urine 200 Patient 110 kg Weight Weight Standing scale Measurement Method Vital Signs: Date Time Temp Pulse Resp B/P B/P Pulse O2 O2 Flow FiO2 Mean Ox Delivery Rate 01/08 1113 [...] 1500 74 18 PATIENT WEIGHT: Weight (lb): 242Weight (oz): 8.14Weight (kg): 110.000 Medications:Active Meds + DC'd Last 24 HrsFurosemide (LASIX 20MG INJ) 20 MG ONCE ONE IV (DC) Magnesium Sulfate (MAGNESIUM SULFATE 2GM/SWFI 50ML) 50 ML ONCE ONE IV (DC) Oxycodone HCl (ROXICODONE) 5 MG Q4H PRN PRN PO Oxycodone HCl (ROXICODONE) 10 MG Q4H PRN PRN PO Amlodipine Besylate (NORVASC) 2.5 MG DAILY PO Metoprolol Tartrate (LOPRESSOR) 25 MG Q12HR PO Ipratropium Bent (ATROVENT) 500 MCG RTQ2H PRN PRN INH Cyanocobalamin (Vitamin B-12 500 mcg tab) 500 MCG DAILY PO Ferrous Sulfate (FERROUS SULFATE) 325 MG DAILY PO Lidocaine (LIDODERM) 1 PATCH DAILY TOPICAL Bisacodyl [...] (Senna Lax 8.6 MG TABLET) 17.2 MG BEDTIME PO Acetaminophen (TYLENOL) 650 MG Q4H PRN PRN PO Acetaminophen (TYLENOL) 650 MG Q4H PRN PRN RECTAL Dextrose/Water (DEXTROSE 10% IN WATER) 125 ML ASDIR PRN IV (CKD) Dextrose/Water (DEXTROSE 10% IN WATER) 250 ML ASDIR PRN IV (CKD) Glucagon (GLUCAGON) 1 MG ASDIR PRN IM Magnesium Sulfate (MAGNESIUM SULFATE 4GM/SWFI 100ML) 100 ML ASDIR PRN IV Magnesium Sulfate (MAGNESIUM SULFATE 2GM/SWFI 50ML) 50 ML ASDIR PRN IV Magnesium Sulfate/Dextrose (MAGNESIUM SULFATE 1GM/D5W 100ML) 100 ML ASDIR PRN IV Ondansetron HCl (ZOFRAN) 4 MG Q6H PRN PRN IV Oxycodone HCl (ROXICODONE) 5 MG Q4H PRN PRN PO (DC) Oxycodone HCl (ROXICODONE) 10 MG Q4H PRN PRN PO (DC) Sodium Chloride (SODIUM CHLORIDE) 20 ML ASDIR IV Status post:4V CABG and ALAA Physical ExamGeneral appearance: alert, awake, orientedNeck: full range of motion, non-tender, supple/no meningismus, no bruit/NL carotids, no JVDCardiovascular: CV assessment: pedal edema, regular rate and rhythmRespiratory: decreased breath sounds, on oxygen, no distressAbdomen: non-tender, obeseGenitourinary: no urinary catheterLower extremity: LE assessment: edemaMusculoskeletal: normal inspectionNeuro/NEURO UROLOGIST: alert, oriented X 3, normal speechSkin: dryPsychiatry: normal affect, normal mood ResultsFindings/Data:Laboratory Tests 01/08 0205 Chemistry Sodium (134 - [...] % (Auto) (14.0 - 32.0 %) 17.6 Kane % (Auto) (4.8 - 9.0 %) 11.5 H Eos % (Auto) (0.3 - 3.7 %) 2.6 Baso % (Auto) (0.0 - 2.0 %) 0.4 Neut # (Auto) (2.0 - 7.6 x10 3/uL) 6.72 Lymph # (Auto) (1.0 - 3.8 x10 3/uL) 1.77 Kane # (Auto) (0.1 - 0.8 x10 3/uL) 1.16 H Eos # (Auto) (0.0 - 0.2 x10 3/uL) 0.26 H Baso # (Auto) (0.0 - 0.2 x10 3/uL) 0.04 Abs Immat Gran (auto) (0.00 - 0.03 x10 3/uL) 0.10 H Add Manual Diff NO Immature Gran % (0.0 - 2.0 %) 1.0 Nucleated RBC % (0 - 0 %) 0.0 Nucleated RBCs # (Man) (0.0 - 0.1 x10 3/uL) 0.00 Laboratory Tests 01/08 0205 Chemistry Magnesium (1.80 - 2.40 mg/dL) 1.89 Radiology data:Recent Impressions:RADIOLOGY - XR CHEST 1 V 01/08 0813 Report Impression - Status: SIGNED Entered: 01/08/2023 1053 IMPRESSION: Stable chest.Impression By: Alexy1 - Pk Obregon M.D. Results: labs reviewed, vital signs reviewed, vital signs stable Treatment Prophylaxis Treatment ProphylaxisDrain(s)/tube(s): Drain(s)/tube(s): chest, urinary catheter Diagnosis, Assessment Plan Free Text DxA P NotesFree Text DxA P Notes:52-year-old male with medical history of hypertension, lifelong smoker,alcohol use who presents to ED at [facility] with back pain and chest pain. He was ruled in for non-STEMI. Taken to [facility] where he was found to have multivessel CAD with tight left main. Patient is transferred here for CABG evaluation. He is not having active chest pain. His main complaint is back pain and headache. His blood pressure is markedly elevated at the time of visit,208/111 mmHg. 1. NSTEMI/multivessel CAD with left main disease s/p 4V CABG and ALAAawake and alert, on nasal cannulaon DAP, BB, statinpostop care per CTSDiuresis per CTS 2. HypertensionBP stableContinue beta-alejandra 3. Tobacco and alcohol useCounseled cessationpulmo following 4. Chronic back pain.manage per primary team Doing well. 01/07/23:-CAD/ACB-STABLE 01/08/23;S/PCABG x 4 (BURDICK-LAD, SVG-Ramus, SVG-OM, SVG-PDA) 01/02/23ALAAPosterior pericartiotomyPAF ON AMIOD POS/P KAYLEY LIGATIONOPTIMIZE BP CONTROLECHOTELE: NSRAMBULATE at 1429 RPT #:[id number] OF REPORTPRProgress [id number]:28:00G.[id number] 2AVAvailable for patient lsfdUSHJKQGTJVFTMF3139-56-15S61:30:09 [facility] 2023-01-08 13:30:00 [id number] 7ia11Z1qpSC5v9x0qfUQleZJmRaguNWmedp5851-1 3:30:00 [facility] ([facility])Discharge SummaryREPORT#:[id number] REPORT STATUS: SignedDATE:01/08/23 TIME: 1330 PATIENT: SHEKHAR LOZADA UNIT #: [id number]#: [id number] [address] [birth year] AGE: 52 SEX: M ATTEND: Eric Crabtree [facility] AUTHOR: Caro Bingham [employer] PRO[employer] MANAGER * ALL edits or amendments must be made on the electronic/computer document * PCP PCPPCP:PCP: Eric Crabtree MD General InformationDate of admission:Observation Start Date: Date of admission: 12/30/22 Discharge date: 01/08/23Discharge diagnosis:Severe CAD s/p CABG Hospital course:This is a 52-year-old gentleman with a past medical history of hypertension who initially presented to an outside hospital with complaints of back pain, and chest pains.He reports the back pain as mid upper back pain that occurred over the last couple of weeks. Usually pain is worse with changing position The patient reports he started to develop chest pains located midsternal for the past 2 weeks. He denies any radiating symptoms.Describes the chest pains as a heaviness, squeezing sensation. Denies any syncope, palpitations. Denies any nausea vomiting or diaphoresis.Patient underwent left heart catheterization by Dr. Felton at [facility] this showed multivessel CAD with a 90% LAD, 60-70% left main, 70-80% circumflex.An echocardiogram was also done at [facility] on 12/28/2022. This showed a normalleft ventricular ejection fraction of 55-60%, moderate LVH,mild mitral regurgitation, grade 1 diastolic dysfunction.The patient does admit to smoking 1-2 times per week. Does admit to alcohol 1-2 times per week. Patient does have a strong family history of coronary artery disease in his father and his grandmother.Denies any surgical history,Review of the records from [facility] show the patient was admitted with a troponin peak of 483. Hemoglobin A1c was noted to be 5.5. Renalfunction appears normal.Patient was transferred to [facility] for evaluation for coronary bypass graft surgery.Hemoglobin A1c noted to be 5.5 at [facility] Assessment/plan 1.coronary artery disease Begin work-up for coronary artery bypass graft with appropriate studies.2. Hypertension3. Chest painsPatient has been seen and examined by Dr. Crabtree. Work-up underway for coronaryartery bypass graft surgery.Further recommendations to follow 12/31/22Patient resting comfortable denies pain.WLKv3Nrlxihmgdoa: 100% oxygen on room air.Cardiac: Remains sinus rhythmGI: Denies constipation diarrhea positive bowel movement.: Voiding well.Carotid ultrasound shows no significant carotid artery stenosisVein mapping completeMRSA positive in the nares, on appropriate Bactroban intranasal treatment.Likely consider coronary artery bypass surgery early next week.Patient was seen and examined by Dr. Crabtree. Further recommendations to follow 01/01Patient resting comfortable denies pain.VVGe2Ajtywrrptts: 100% oxygen on room air.Cardiac: Remains sinus rhythmGI: Denies constipation or diarrhea, positive bowel movement.: Voiding well.MRSA positive in the nares, on appropriate Bactroban intranasal treatment.Pulmonary consulted for history of smoking and abnormal CT suggestive of emphysema.PFT hopefully to be completed in the morning.STS 0.39%Patient was seen and examined by Dr. Crabtree. Further recommendations to followCoronary artery bypass graft surgery was discussed with the patient. The risk ofthe operation including , bleeding, infection, heart attack,stroke, pneumonia, renal failure, dialysis, prolonged ICU stay, car tracheostomy, need for long-term rehabilitation were all discussed with thepatient. Patient's questions were answered and the patient agreed to proceed with surgery. 01/03/23POD 1CABG x 4 (BURDICK-LAD, SVG-Ramus, SVG-OM, SVG-PDA), ALAA, EVH (RGSV), Posterior pericartiotomyPatient hemodynamically stable post operatively, not requiring pressors or inotropesOn 3l nasal cannula, wean off as tolerated to keep O2 sats > 92%, nebsEncourage deep breathing and incentive spirometer useLabs and chest x-ray reviewed-stableNSR on cardiac cath technologist, no ectopy, continue amio, bb, asa, plavix, lipitorKeep both chest tubes and monitorIncrease po intake, Cardiac diet, nutritional supplementsGlycemic control on insulin drip- monitor blood sugarsBowel regimen protocolPT/OT- ambulateKeep patient in CVICU, continue supportive carePatient seen with Dr. Crabtree, discussed plan of care with multidisciplinary team. 01/04Patient is alert and oriented, up in the recliner, complaining of back painLeft pleural chest tube discontinued to minimize pain and facilitate deep breathingMultimodal pain controlChest x-ray showed atelectasis. Wean O2 as tolerated, encourage I-S and ambulationPulmonary toilet, MucomystDiscontinue central lineNormal renal function, discontinue Siddiqui catheterGlycemic controlKeep in CVICU for close monitoringPatient seen and plan reviewed with the Bro multidisciplinary team 01/05Overall doing better today, pain improvedDiscontinue chest tubeChest x-ray reviewed. Gentle diuresis with Lasix 20 mg IV onceEncourage I-S and mobilizationPT/OTTransfer to intermediate carePatient seen and plan reviewed with the Bro multidisciplinary team 01/06/23POD 4Patient recovering well, no complaints.Alert, awake and orientedBreathing comfortable on room air, keep O2 sats > 92%I-S use encouraged and deep breathingNSR on cardiac monitorGood response to lasix, UOP 1450 last nightStrict I Os, daily weightsCardiac dietBowel regimenPain controlledSCDs for DVT prophylaxisTransfer to DAN4Qnxxcff seen with Dr. Crabtree and plan of care discussed with team. 01/07Blood pressure on the high side. Increase metoprolol to 5 mg twice dailyChest x-ray reviewed. Respiratory status stable on room airLabs pending. Gentle diuresisDiscontinue pacing wires before dischargeEncourage I-S and mobilizationAnticipate discharge in the next 24 to 48 hours if remains in stable condition.Pt seen and plan reviewed with Dr Crabtree 01/08 Remains in stable condition, ready to go homeBlood pressure improved, normal sinus rhythmPacing wires discontinued. Limited echocardiogram pendingContinue dual antiplatelet therapy, statin and metoprololTaper amiodarone offBLE venous Doppler pendingIncision intact and healing. Continue sternal precautions for 6 weeksBilateral lower extremity edema. Continue LasixReplace electrolytesPossible discharge home today pending echocardiogram and lower extremity venous DopplerFollow-up in clinic in 1 to 2 weeks. Follow-up with Dr. Felton Med Rec PCPPCP:PCP: Eric Crabtree MD Med RecDischarge meds:Stop taking the following medications:LISINOPRIL/HCTZ (ZESTORETIC 10/12.5 MG) 10 MG-12.5 MG TAB 1 TABLET ORAL DAILY. Start taking the following new medications:CLOPIDOGREL (PLAVIX) 75 MG TAB 75 MILLIGRAM ORAL [...] 10 No Refills HYDROcodone/APAP (HYDROcodone/APAP 5/325) 5 MG-325 MG TAB 1 TABLET ORAL EVERY 6 HOURS. Qty = 28 No Refills ObjectiveVS/I OLast Documented: Result Date Time Pulse Ox 96 01/08 111 B/P 145/74 01/08 111 B/P Mean 97.6 01/08 1113 O2 Delivery Room air 01/08 111 Temp 97.9 01/08 1113 Pulse 69 01/08 [...] scale Measurement Method PATIENT WEIGHT: Weight (lb): 242Weight (oz): 8.14Weight (kg): 110.000 General appearance: alert, oriented, mental status normal, no respiratory distressHead/Eyes: atraumatic, normocephalicNeck: non-tenderCardiovascular: regular rate rhythm, normal heart soundsRespiratory: aerating well, symmetric expansionGI: soft, non-tenderExtremities: moves all, edemaNeuro/NEURO UROLOGIST: alert, oriented X 3, normal speech, no motor deficitsPsychiatry: normal affect, normal mood ResultsFindings/Data:Laboratory Tests: 01/08 0205 Chemistry Sodium (134 - [...] % (Auto) (14.0 - 32.0 %) 17.6 Kane % (Auto) (4.8 - 9.0 %) 11.5 H Eos % (Auto) (0.3 - 3.7 %) 2.6 Baso % (Auto) (0.0 - 2.0 %) 0.4 Neut # (Auto) (2.0 - 7.6 x10 3/uL) 6.72 Lymph # (Auto) (1.0 - 3.8 x10 3/uL) 1.77 Kane # (Auto) (0.1 - 0.8 x10 3/uL) 1.16 H Eos # (Auto) (0.0 - 0.2 x10 3/uL) 0.26 H Baso # (Auto) (0.0 - 0.2 x10 3/uL) 0.04 Abs Immat Gran (auto) (0.00 - 0.03 x10 3/uL) 0.10 H Add Manual Diff NO Immature Gran % (0.0 - 2.0 %) 1.0 Nucleated RBC % (0 - 0 %) 0.0 Nucleated RBCs # (Man) (0.0 - 0.1 x10 3/uL) 0.00 Radiology data:Recent Impressions:RADIOLOGY - XR CHEST 1 V 01/08 0813 Report Impression - Status: SIGNED Entered: 01/08/2023 1053 IMPRESSION: Stable chest.Impression By: Katlin - Pk Obregon M.D. Discharge Instructions PCPPCP:PCP: Eric Crabtree MD )( Discharge to: Home/Self Care Discharge InstructionsAdditional Discharge Routines: PCP Follow-Up, Attending Follow-Up)( Diet: Cardiac)( Weight monitoring: Daily)( Activity: No Lifting)( Wound/dressing care: Do not submerge incision, Keep wound clean and dry Follow-up AppointmentsPCP follow up: PCP: Eric Crabtree MD PCP follow up timeframe: In 1-2 weeksAttending Physician: Attending Physician: Geraldo Felton MD Attending physician follow up timeframe: In 1-2 weeks Quality: Discharge Advanced Care Plan 65 or OlderDiscussed with: patient at 1337 at 1809 RPT #:[id number] OF REPORTDSDischarge lesypmz1931-56-01Z78:30:00G.[id number] for patient fmcgZFURRFCASZYFXR3522-95-74H86:37:57 [facility] 2023-01-08 12:50:00 [id number] 0 lFiOR7Z+Eojx1hxFquIdz/e7pWz/1FcGR+A7541-9 :50:00 [facility] ([facility])Clinical NoteREPORT#:[id number] REPORT STATUS: SignedDATE:01/08/23 TIME: 125 PATIENT: SHEKHAR LOZADA UNIT #: [id number]#: [id number] [address] [birth year] AGE: 52 SEX: M ATTEND: Eric Crabtree [facility] AUTHOR: Virgilio Royal MD * ALL edits or amendments must be made on the electronic/computer document * Clinical NoteNote:Will be discharged home todayf/u in the clinic in 4 weeks for PFT at 1251 RPT #:[id number] OF REPORTCLClinical [id number]:50:00G.[id number] 6AVAvailable for patient ibbsSQPKIRAHNZPQVH1277-10-65Y10:51:32 [facility] 2023-01-07 18:32:00 [id number] C a7jODie1KPD9H7GFOJajKKjtBoe9GSwuvRw1667-4 8:32:00 [facility] ([facility])Cardiology Progress NoteREPORT#:[id number] REPORT STATUS: SignedDATE:01/07/23 TIME: 183 PATIENT: SHEKHAR LOZADA UNIT #: [id number]#: [id number] [facility]ED[facility]DOB: [birth year] AGE: 52 SEX: M ATTEND: Eric Crabtree [facility] AUTHOR: David Gallardo MD * ALL edits or amendments must be made on the electronic/computer document * SubjectiveChief complaint:Back pain. Objective GeneralVS/I O:24 hour I O ending at 0700: 01/07 0700 01/06 1900 Intake Total 600 Output Total 550 Balance 50 Intake, Oral 600 Number 1 Bowel Movements Output, Urine 550 Patient 111 kg Weight Weight Standing scale Measurement Method Vital Signs: Date Time Temp Pulse Resp B/P B/P Pulse O2 O2 Flow FiO2 Mean Ox Delivery Rate 01/07 1602 [...] 93 Room air 01/06 1929 184/98 0.0 01/07 1928 99.0 82 191/87 0.0 93 Room air PATIENT WEIGHT: Weight (lb): 244Weight (oz): 11.41Weight (kg): 111.000 Medications:Medication(s) Ordered:Autonomic Drugs Sig/Dorothy Start time Last Medication Dose Route Stop Time Status Admin Ipratropium Bent 500 MCG RTQ2H PRN PRN 01/05 1537 AC INH 02/04 1536 Ipratropium Bent 500 MCG RTQ4H 01/02 1545 DC 01/07 INH 01/08 1529 1139 Blood Formation,Coagulation Sig/Dorothy Start time Last Medication Dose Route Stop Time Status Admin Ferrous Sulfate 325 MG DAILY 01/05 900 AC 01/07 PO 02/04 0859 0839 Clopidogrel Bisulfate 75 MG DAILY 01/03 09 AC 01/07 PO 02/02 0859 0839 Cardiovascular Drugs Sig/Dorothy Start time Last Medication Dose Route Stop Time Status Admin Amlodipine Besylate 2.5 MG DAILY 01/07 1030 AC 01/07 PO 02/06 1029 1153 Metoprolol Tartrate 25 MG Q12HR 01/07 1030 AC 01/07 PO 02/06 1029 1036 Atorvastatin Calcium 40 MG 2100 01/03 2100 AC 01/06 PO 02/02 2059 212 Amiodarone HCl 200 MG TID 01/02 2100 AC 01/07 PO 02/01 205 1508 Metoprolol Tartrate 12.5 MG Q12HR 01/02 2100 DC PO 02/01 205 Central Nervous System Agents Sig/Dorothy Start time Last Medication Dose Route Stop Time Status Admin Aspirin 81 MG DAILY 01/02 213 AC 01/07 PO 02/01 213 0838 Gabapentin 200 MG BID 01/02 2100 DC 01/07 PO 01/07 0901 0839 Acetaminophen 650 MG Q4H PRN PRN 01/02 1545 AC 01/06 PO 02/01 1544 0830 Acetaminophen 650 MG Q4H PRN PRN 01/02 1545 AC RECTAL 02/01 1544 Magnesium Sulfate 100 ML ASDIR PRN 01/02 1545 AC IV 02/01 1544 Magnesium Sulfate 50 ML [...] Glycol 17 GM DAILY 01/03 0900 AC 01/07 PO 02/02 0859 0839 Pantoprazole 40 MG DAILY@0600 01/03 0600 AC 01/07 PO 02/02 0559 0359 Docusate Sodium 100 MG BID 01/02 2100 AC 01/07 PO 02/01 2059 0839 Sennosides 17.2 MG BEDTIME 01/02 2100 AC 01/06 PO 02/01 2059 2129 Ondansetron HCl 4 MG Q6H PRN PRN 01/02 1545 AC IV 02/01 1544 Hormones And Synthetic Substit Sig/Dorothy Start time Last Medication Dose Route Stop Time Status Admin Glucagon 1 MG ASDIR PRN 01/02 1545 AC IM 02/01 1544 Local Anesthetics (Parenteral) Sig/Dorothy Start time Last Medication Dose Route Stop Time Status Admin Lidocaine 1 PATCH DAILY 01/05 09 AC 01/07 TOPICAL 02/04 0859 0839 Respiratory Tract Agents Sig/Dorothy Start time Last Medication Dose Route Stop Time Status Admin Acetylcysteine 200 MG RTQ8H 01/04 1600 DC 01/07 NEB 02/03 1559 0816 Vitamins Sig/Dorothy Start time Last Medication Dose Route Stop Time Status Admin Cyanocobalamin 500 MCG DAILY 01/05 0900 AC 01/07 PO 02/04 0859 0839 Status post:4V CABG and ALAA Physical ExamGeneral appearance: alert, awake, orientedNeck: full range of motion, non-tender, supple/no meningismus, no bruit/NL carotids, no JVDCardiovascular: CV assessment: pedal edema, regular rate and rhythmRespiratory: decreased breath sounds, on oxygen, no distressAbdomen: non-tender, obeseGenitourinary: no urinary catheterLower extremity: LE assessment: edemaMusculoskeletal: normal inspectionNeuro/NEURO UROLOGIST: alert, oriented X 3, normal speechSkin: dryPsychiatry: normal affect, normal mood ResultsFindings/Data:Laboratory Tests 01/07 1229 Chemistry Sodium (134 - [...] % (Auto) (14.0 - 32.0 %) 17.1 Kane % (Auto) (4.8 - 9.0 %) 11.6 H Eos % (Auto) (0.3 - 3.7 %) 3.1 Baso % (Auto) (0.0 - 2.0 %) 0.4 Neut # (Auto) (2.0 - 7.6 x10 3/uL) 6.90 Lymph # (Auto) (1.0 - 3.8 x10 3/uL) 1.76 Kane # (Auto) (0.1 - 0.8 x10 3/uL) 1.20 H Eos # (Auto) (0.0 - 0.2 x10 3/uL) 0.32 H Baso # (Auto) (0.0 - 0.2 x10 3/uL) 0.04 Abs Immat Gran (auto) (0.00 - 0.03 x10 3/uL) 0.09 H Add Manual Diff NO Immature Gran % (0.0 - 2.0 %) 0.9 Nucleated RBC % (0 - 0 %) 0.0 Nucleated RBCs # (Man) (0.0 - 0.1 x10 3/uL) 0.00 Laboratory Tests 01/07 1229 Chemistry Magnesium (1.80 - 2.40 mg/dL) 1.91 Radiology data:Recent Impressions:RADIOLOGY - XR CHEST 1 V 01/07 0728 Report Impression - Status: SIGNED Entered: 01/07/2023 0907 IMPRESSION: Stable chest.Impression By: Alexy1 - Pk Obregon M.D. Results: labs reviewed, vital signs reviewed, vital signs stable Treatment Prophylaxis Treatment ProphylaxisDrain(s)/tube(s): Drain(s)/tube(s): chest, urinary catheter Diagnosis, Assessment Plan Free Text DxA P NotesFree Text DxA P Notes:52-year-old male with medical history of hypertension, lifelong smoker,alcohol use who presents to ED at [facility] with back pain and chest pain. He was ruled in for non-STEMI. Taken to [facility] where he was found to have multivessel CAD with tight left main. Patient is transferred here for CABG evaluation. He is not having active chest pain. His main complaint is back pain and headache. His blood pressure is markedly elevated at the time of visit,208/111 mmHg. 1. NSTEMI/multivessel CAD with left main disease s/p 4V CABG and ALAAawake and alert, on nasal cannulaon DAP, BB, statinpostop care per CTSDiuresis per CTS 2. HypertensionBP stableContinue beta-alejandra 3. Tobacco and alcohol useCounseled cessationpulmo following 4. Chronic back pain.manage per primary team Doing well. 01/07/23;S/PCABG x 4 (BURDICK-LAD, SVG-Ramus, SVG-OM, SVG-PDA) 01/02/23ALAAPosterior pericartiotomyPAF ON AMIOD POS/P KAYLEY LIGATIONOPTIMIZE BP CONTROLECHOTELE: NSRAMBULATE at 1116 RPT #:[id number] OF REPORTPRProgress [id number]:32:00G.[id number] 5AVAvailable for patient [id number]:17:12 [facility] 2023-01-07 13:31:00 [id number] p [id number]/JxTTzUMLvVefNMct3DG6786-2 :31:00 [facility])Pulmonology Progress NoteREPORT#:[id number] REPORT STATUS: SignedDATE:01/07/23 TIME: 1331 PATIENT: SHEKHAR LOZADA UNIT #: [id number]#: [id number] [address] [birth year] AGE: 52 SEX: M ATTEND: Eric Crabtree [facility] AUTHOR: Virgilio Royal MD * ALL edits or amendments must be made on the electronic/computer document * SubjectiveChief complaint:He is feeling better.On RANo SOB, CP, f/c/r, N/V/D. HPI:This is a 52-year-old gentleman with a past medical history of hypertension who initially presented to an outside hospital with complaints of back pain, and chest pains. He started to develop chest pains located midsternal for the past 2weeks. He describes the chest pains as a heaviness, squeezing sensation. Patientunderwent left heart catheterization by Dr. Felton at [facility] thisshowed multivessel CAD with a 90% LAD, 60-70% left main, 70-80% circumflex.An echocardiogram was also done at [facility] on 12/28/2022. This showed a normal left ventricular ejection fraction of 55-60%, moderate LVH, mild mitral regurgitation, grade 1 diastolic dysfunction. He admits to smoking 1-2 times perweek. Does admit to alcohol 1-2 times per week. We were consulted for the management of COPD/emphysema. Objective GeneralVS/I O:Last Documented: Result Date Time Pulse Ox 95 [...] scale Measurement Method PATIENT WEIGHT: Weight (lb): 244Weight (oz): 11.41Weight (kg): 111.000 Medications:Active Meds + DC'd Last 24 HrsFurosemide (LASIX 20MG INJ) 20 MG ONCE ONE IV (DC) Amlodipine Besylate (NORVASC) 2.5 MG DAILY PO Metoprolol Tartrate (LOPRESSOR) 25 MG Q12HR PO Ipratropium Bent (ATROVENT) 500 MCG RTQ2H PRN PRN INH Cyanocobalamin (Vitamin B-12 500 mcg tab) 500 MCG DAILY PO Ferrous Sulfate (FERROUS SULFATE) 325 MG DAILY PO Lidocaine (LIDODERM) 1 PATCH DAILY TOPICAL Acetylcysteine (MUCOMYST FOR RT) 200 MG RTQ8H NEB Bisacodyl (DULCOLAX) 10 MG ONCE PRN RECTAL [...] (Senna Lax 8.6 MG TABLET) 17.2 MG BEDTIME PO Acetaminophen (TYLENOL) 650 MG Q4H PRN PRN PO Acetaminophen (TYLENOL) 650 MG Q4H PRN PRN RECTAL Dextrose/Water (DEXTROSE 10% IN WATER) 125 ML ASDIR PRN IV (CKD) Dextrose/Water (DEXTROSE 10% IN WATER) 250 ML ASDIR PRN IV (CKD) Glucagon (GLUCAGON) 1 MG ASDIR PRN IM Ipratropium Bent (ATROVENT) 500 MCG RTQ4H INH Magnesium Sulfate (MAGNESIUM SULFATE 4GM/SWFI 100ML) 100 ML ASDIR PRN IV Magnesium Sulfate (MAGNESIUM SULFATE 2GM/SWFI 50ML) 50 ML ASDIR PRN IV Magnesium Sulfate/Dextrose (MAGNESIUM SULFATE 1GM/D5W 100ML) 100 ML ASDIR PRN IV Ondansetron HCl (ZOFRAN) 4 MG Q6H PRN PRN IV Oxycodone HCl (ROXICODONE) 5 MG Q4H PRN PRN PO Oxycodone HCl (ROXICODONE) 10 MG Q4H PRN PRN PO Sodium Chloride (SODIUM CHLORIDE) 20 ML ASDIR IV Dietitian nutrition assessmentThe data set between the solid lines has been imported from the dietitian's assessment. BMI Calculated: 40.7Nutrition related diagnosis: Nutrition diagnosis details: Nutrition problem: Altered nutrition labsNutrition etiology: Excessive oral intakeNutrition signs and symptoms: ELEVATED TRIGLYCERIDES , CHOL/HDL RATIONutrition prescription: 1. CONTINUE CARDIAC DIETDietitian name: Vida Garcia RD, LDAssessment completed: 01/03/23 Physical ExamGeneral appearance: alert, awake, oriented, no acute distressHead/eyes: atraumatic, normocephalicNeck: no JVDCardiovascular: normal heart sounds, normal S1/S2, regular rate rhythmRespiratory/chest: crackles (basal), aerating well, symmetric expansion, no distressAbdomen: soft, non-tender, no distentionExtremities: no edemaMusculoskeletal: normal inspectionNeuro/NEURO UROLOGIST: alert, oriented X 3, CNII-XII intact, no motor deficitsSkin: dry, intactPsychiatry: normal affect, normal mood Treatment Prophylaxis Treatment ProphylaxisOxygen: room air Diagnosis, Assessment PlanFree Text A P:Assessment and Plan: - Dyspnea due to multivessel CAD and emphysema.- Emphysema/COPD.- Multivessel CAD.- Hx of HTN.- Ex-smoker: quit 2 months ago.- 8 mm pulm nodule- S/p CABG x 4 (BURDICK-LAD, SVG-Ramus, SVG-OM, SVG-PDA), ALAA, EVH (RGSV) and Posterior pericardiotomy.- Morbid obesity Plan:I/Sd/c mucomystBD PRNf/u in the pulm clinic for PFT and NPSGNeeds f/u CT chest w/out contrast after 6 month [facility] the pulm [facility] #:[id number] OF REPORTPRProgress [id number]:31:00G.[id number] 5AVAvailable for patient [id number]:39:41 [facility] 2023-01-07 11:59:00 [id number] P NNle7dJdE7VCSlBtQQv63mERR97fjyZ6bDg6576-2 1:59:00 [facility] ([facility])Cardiothoracic Surgery ProgRREHABILITATION HOSPITAL OF [facility]HO[facility]#:[id number] REPORT STATUS: SignedDATE:01/07/23 TIME: 1159 PATIENT: SHEKHAR LOZADA UNIT #: [id number]#: [id number] [address] [birth year] AGE: 52 SEX: M ATTEND: Eric Crabtree [facility] AUTHOR: Caro Bingham [employer] PRO[employer] MA[employer]GER * ALL edits or amendments must be made on the electronic/computer document * GeneralPost-op: day 5Status post:01/02/23CABG x 4 (BURDICK-LAD, SVG-Ramus, SVG-OM, SVG-PDA)ALAAEVH (RGSV)Posterior pericartiotomy SubjectiveChief complaint:s/p CABG Review of SystemsConstitutional:Denies: fever, malaise. Skin:Denies: rash. Allergy/Immun:Denies: anaphylaxis, hives, itching. Eyes:Denies: redness, discharge, swelling. ENT:Denies: ear drainage, ear ringing. Respiratory:Denies: SOB, wheezing. Cardiovascular:Denies: chest pain, KISER (dyspnea on exertion), edema. GI:Denies: constipation, diarrhea. :Denies: hematuria, nocturia. Musculoskeletal:Denies: joint pain, joint swelling. Heme:Denies: bleeding, bruising. Endocrine:Denies: polydipsia, polyuria. Neuro:Denies: confusion, dizziness. All systems rev neg: except as marked Objective GeneralVS/I OVital SignsDate Temp Pulse Resp B/P B/P Mean Pulse Ox GfO149/24-01/07 97.7-99.0 74-91 12-18 132-191/73-100 0.0-123.2 93-100 Last [...] scale Measurement Method PATIENT WEIGHT: Weight (lb): 244Weight (oz): 11.41Weight (kg): 111.000 Physical ExamGeneral appearance: alert, oriented, pleasant, mental status normal, no respiratory distressWound/incision: Location:sternal Site condition: dressing clean dry, dressing intactHEENT: anicteric, mucosal membranes moistNeck: full range of motion, non-tenderCardiovascular: BP/pulses equal bilat., regular rate rhythmRespiratory: crackles, decreased breath sounds, aerating well, symmetric expansion, no distressAbdomen: soft, non-tenderExtremities: dry, moves allMusculoskeletal: full range of motion, painless range of motionNeuro/NEURO UROLOGIST: alert, oriented X 3, normal speech, no motor deficitsSkin: dry, intactPsychiatry: normal affect, normal mood Current MedicationsMedications:Active Meds + DC'd Last 24 HrsAmlodipine Besylate (NORVASC) 2.5 MG DAILY PO Metoprolol Tartrate (LOPRESSOR) 25 MG Q12HR PO Ipratropium Bent (ATROVENT) 500 MCG RTQ2H PRN PRN INH Cyanocobalamin (Vitamin B-12 500 mcg tab) 500 MCG DAILY PO Ferrous Sulfate (FERROUS SULFATE) 325 MG DAILY PO Lidocaine (LIDODERM) 1 PATCH DAILY TOPICAL Acetylcysteine (MUCOMYST FOR RT) 200 MG RTQ8H NEB Bisacodyl (DULCOLAX) 10 MG ONCE PRN RECTAL [...] (Senna Lax 8.6 MG TABLET) 17.2 MG BEDTIME PO Acetaminophen (TYLENOL) 650 MG Q4H PRN PRN PO Acetaminophen (TYLENOL) 650 MG Q4H PRN PRN RECTAL Dextrose/Water (DEXTROSE 10% IN WATER) 125 ML ASDIR PRN IV (CKD) Dextrose/Water (DEXTROSE 10% IN WATER) 250 ML ASDIR PRN IV (CKD) Glucagon (GLUCAGON) 1 MG ASDIR PRN IM Ipratropium Bent (ATROVENT) 500 MCG RTQ4H INH Magnesium Sulfate (MAGNESIUM SULFATE 4GM/SWFI 100ML) 100 ML ASDIR PRN IV Magnesium Sulfate (MAGNESIUM SULFATE 2GM/SWFI 50ML) 50 ML ASDIR PRN IV Magnesium Sulfate/Dextrose (MAGNESIUM SULFATE 1GM/D5W 100ML) 100 ML ASDIR PRN IV Ondansetron HCl (ZOFRAN) 4 MG Q6H PRN PRN IV Oxycodone HCl (ROXICODONE) 5 MG Q4H PRN PRN PO Oxycodone HCl (ROXICODONE) 10 MG Q4H PRN PRN PO Sodium Chloride (SODIUM CHLORIDE) 20 ML ASDIR IV ResultsRadiology data:Recent Impressions:RADIOLOGY - XR CHEST 1 V 01/07 0728 Report Impression - Status: SIGNED Entered: 01/07/2023 0907 IMPRESSION: Stable chest.Impression By: Alexy1 - Pk Obregon M.D. Quality: Trauma Gen Surg Advanced Care Plan 65 or OlderDiscussed with: patient Diagnosis, Assessment PlanHospital course to date:This is a 52-year-old gentleman with a past medical history of hypertension who initially presented to an outside hospital with complaints of back pain, and chest pains.He reports the back pain as mid upper back pain that occurred over the last couple of weeks. Usually pain is worse with changing positionThe patient reports he started to develop chest pains located midsternal for thepast 2 weeks. He denies any radiating symptoms.Describes the chest pains as a heaviness, squeezing sensation. Denies any syncope, palpitations. Denies any nausea vomiting or diaphoresis. Patient underwent left heart catheterization by Dr. Felton at [facility] this showed multivessel CAD with a 90% LAD, 60-70% left main, 70-80% circumflex. An echocardiogram was also done at [facility] on 12/28/2022. This showed a normal left ventricular ejection fraction of 55-60%, moderate LVH, mild mitral regurgitation, grade 1 diastolic dysfunction. The patient does admit to smoking 1-2 times per week. Does admit to alcohol 1-2times per week. Patient does have a strong family history of coronary artery disease in his father and his grandmother.Denies any surgical history, Review of the records from [facility] show the patient was admitted with a troponin peak of 483. Hemoglobin A1c was noted to be 5.5. Renal function appears normal. Patient was transferred to [facility] for evaluation for coronary bypass graft surgery.Hemoglobin A1c noted to be 5.5 at [facility] Assessment/plan1.coronary artery disease Begin work-up for coronary artery bypass graft with appropriate studies.2. Hypertension3. Chest pains Patient has been seen and examined by Dr. Crabtree. Work-up underway for coronary artery bypass graft surgery. Further recommendations to follow 12/31/22Patient resting comfortable denies pain.HGAh5Etbetgnslxy: 100% oxygen on room air.Cardiac: Remains sinus rhythmGI: Denies constipation diarrhea positive bowel movement.: Voiding well.Carotid ultrasound shows no significant carotid artery stenosisVein mapping completeMRSA positive in the nares, on appropriate Bactroban intranasal treatment.Likely consider coronary artery bypass surgery early next week.Patient was seen and examined by Dr. Crabtree. Further recommendations to follow 01/01Patient resting comfortable denies pain.KWQe0Nrqlptthhpq: 100% oxygen on room air.Cardiac: Remains sinus rhythmGI: Denies constipation or diarrhea, positive bowel movement.: Voiding well.MRSA positive in the nares, on appropriate Bactroban intranasal treatment.Pulmonary consulted for history of smoking and abnormal CT suggestive of emphysema.PFT hopefully to be completed in the morning. STS 0.39%Patient was seen and examined by Dr. Crabtree. Further recommendations to followCoronary artery bypass graft surgery was discussed with the patient. The risk of the operation including , bleeding, infection, heart attack, stroke, pneumonia, renal failure, dialysis, prolonged ICU stay, car tracheostomy, need for long-term rehabilitation were all discussed with the patient. Patient's questions were answered and the patient agreed to proceed with surgery. 01/03/23POD 1CABG x 4 (BURDICK-LAD, SVG-Ramus, SVG-OM, SVG-PDA), ALAA, EVH (RGSV), Posterior pericartiotomyPatient hemodynamically stable post operatively, not requiring pressors or inotropesOn 3l nasal cannula, wean off as tolerated to keep O2 sats > 92%, nebsEncourage deep breathing and incentive spirometer useLabs and chest x-ray reviewed-stableNSR on cardiac cath technologist, no ectopy, continue amio, bb, asa, plavix, lipitorKeep both chest tubes and monitorIncrease po intake, Cardiac diet, nutritional supplementsGlycemic control on insulin drip- monitor blood sugarsBowel regimen protocolPT/OT- ambulateKeep patient in CVICU, continue supportive carePatient seen with Dr. Crabtree, discussed plan of care with multidisciplinary team. 01/04 Patient is alert and oriented, up in the recliner, complaining of back painLeft pleural chest tube discontinued to minimize pain and facilitate deep breathingMultimodal pain controlChest x-ray showed atelectasis. Wean O2 as tolerated, encourage I-S and ambulationPulmonary toilet, MucomystDiscontinue central lineNormal renal function, discontinue Siddiqui catheterGlycemic controlKeep in CVICU for close monitoringPatient seen and plan reviewed with the Bro multidisciplinary team 01/05 Overall doing better today, pain improvedDiscontinue chest tubeChest x-ray reviewed. Gentle diuresis with Lasix 20 mg IV onceEncourage I-S and mobilizationPT/OTTransfer to intermediate carePatient seen and plan reviewed with the Bro multidisciplinary team 01/06/23POD 4Patient recovering well, no complaints.Alert, awake and oriented Breathing comfortable on room air, keep O2 sats > 92%I-S use encouraged and deep breathingNSR on cardiac monitorGood response to lasix, UOP 1450 last nightStrict I Os, daily weightsCardiac dietBowel regimenPain controlledSCDs for DVT prophylaxisTransfer to CZD0Sehnwge seen with Dr. Crabtree and plan of care discussed with team. 01/07 Blood pressure on the high side. Increase metoprolol to 5 mg twice dailyChest x-ray reviewed. Respiratory status stable on room airLabs pending. Gentle diuresisDiscontinue pacing wires before dischargeEncourage I-S and mobilizationAnticipate discharge in the next 24 to 48 hours if remains in stable condition. Pt seen and plan reviewed with Dr Crabtree at 1208 at 1808 RPT #:[id number] OF REPORTPRProgress [id number]:59:00G.[id number] 3AVAvailable for patient lopzMPKIHSMNKGNCJD1301-65-39A91:08:54 [facility] 2023-01-06 15:14:00 [id number] F /Y6wJi9o3PyV5jffFZZuNbxvXF0yEYD2kX/01-06T15:14:00 [facility] CenterCardi[facility] ProgREPORT#:[id number] REPORT STATUS: SignedDATE:01/06/23 TIME: 151 PATIENT: SHEKHAR LOZADA UNIT #: [id number]#: [id number] [address] [birth year] AGE: 52 SEX: M ATTEND: Eric Crabtree [facility] AUTHOR: Caro Bingham SECURITY AND COMPLIANCE PROJECT MANAGER * ALL edits or amendments must be made on the electronic/computer document * GeneralPost-op: day 4Status post:01/02/23 CABG x 4 (BURDICK-LAD, SVG-Ramus, SVG-OM, SVG-PDA) ANTONETTE HAYWARD (RGSV) Posterior pericartiotomy SubjectiveChief complaint:Multi-vessel CAD- s/p CABG Review of SystemsConstitutional:Denies: fever, malaise. Skin:Denies: rash. Allergy/Immun:Denies: anaphylaxis, hives, itching. Eyes:Denies: redness, discharge, swelling. ENT:Denies: ear drainage, ear ringing. Respiratory:Denies: SOB, wheezing. Cardiovascular:Denies: chest pain, KISER (dyspnea on exertion), edema. GI:Denies: constipation, diarrhea. :Denies: hematuria, nocturia. Musculoskeletal:Denies: joint pain, joint swelling. Heme:Denies: bleeding, bruising. Endocrine:Denies: polydipsia, polyuria. Neuro:Denies: confusion, dizziness. All systems rev neg: except as marked Objective GeneralVS/I OLast Documented: Result Date Time Pulse Ox 94 01/06 1102 O2 Delivery Room air 01/06 1102 B/P 113/68 01/06 0957 B/P Mean 0.0 01/06 0957 Temp 99.1 01/06 0957 Pulse 78 01/06 0957 Resp 18 01/06 0957 O2 Flow Rate 2 01/05 1945 FiO2 40 01/02 2032 24 hour I O ending at 0700: 01/06 0700 01/05 1900 Intake Total 340.00 740 Output Total 1200 1200 Balance -860.00 -460 Intake, IV 100.00 Intake, Oral 240 740 Number Voids 4 Output, Urine 1200 1200 Patient 245 lb Weight Weight Standing scale Measurement Method PATIENT WEIGHT: Weight (lb): 244Weight (oz): 11.41Weight (kg): 111.000 Dietitian Nutrition assessmentThe data set between the solid lines has been imported from the dietitian's assessment. BMI Calculated: 40.7Nutrition related diagnosis: Nutrition diagnosis details: Nutrition problem: Altered nutrition labsNutrition etiology: Excessive oral intakeNutrition signs and symptoms: ELEVATED TRIGLYCERIDES , CHOL/HDL RATIONutrition prescription: 1. CONTINUE CARDIAC DIETDietitian name: Vida Garcia RD, LDAssessment completed: 01/03/23 Physical ExamGeneral appearance: alert, awake, orientedWound/incision: Location:sternal Site condition: dressing clean dry, dressing intactHEENT: anicteric, mucosal membranes moistNeck: full range of motion, non-tenderCardiovascular: BP/pulses equal bilat., regular rate rhythmRespiratory: crackles, decreased breath sounds, aerating well, symmetric expansion, no distressAbdomen: soft, non-tenderExtremities: dry, moves allMusculoskeletal: full range of motion, painless range of motionNeuro/NEURO UROLOGIST: alert, oriented X 3, normal speech, no motor deficitsSkin: dry, intactPsychiatry: normal affect, normal mood Current MedicationsMedications:Active Meds + DC'd Last 24 HrsFurosemide (LASIX 20MG INJ) 20 MG ONCE ONE IV (DC) Lactulose (LACTULOSE) 20 GM ONCE ONE PO (DC) Ipratropium Bent (ATROVENT) 500 MCG RTQ2H PRN PRN INH Cyanocobalamin (Vitamin B-12 500 mcg tab) 500 MCG DAILY PO Ferrous Sulfate (FERROUS SULFATE) 325 MG DAILY PO Lidocaine (LIDODERM) 1 PATCH DAILY TOPICAL Acetylcysteine (MUCOMYST FOR RT) 200 MG RTQ8H NEB Bisacodyl (DULCOLAX) 10 MG ONCE PRN RECTAL [...] (Senna Lax 8.6 MG TABLET) 17.2 MG BEDTIME PO Acetaminophen (TYLENOL) 650 MG Q4H PRN PRN PO Acetaminophen (TYLENOL) 650 MG Q4H PRN PRN RECTAL Calcium Chloride (CALCIUM CHLORIDE) 1 GM ASDIR PRN IV (DC) Dextrose/Water (DEXTROSE 10% IN WATER) 125 ML ASDIR PRN IV (CKD) Dextrose/Water (DEXTROSE 10% IN WATER) 250 ML ASDIR PRN IV (CKD) Epinephrine (ADRENALIN CHLORIDE) 4 MG ASDIR IV (DC) Dextrose/Water (DEXTROSE 5% WATER) 246 MLGlucagon (GLUCAGON) 1 MG ASDIR PRN IM Ipratropium Bent (ATROVENT) 500 MCG RTQ4H INH Magnesium Sulfate (MAGNESIUM SULFATE 4GM/SWFI 100ML) 100 ML ASDIR PRN IV Magnesium Sulfate (MAGNESIUM SULFATE 2GM/SWFI 50ML) 50 ML ASDIR PRN IV Magnesium Sulfate/Dextrose (MAGNESIUM SULFATE 1GM/D5W 100ML) 100 ML ASDIR PRN IV Nitroglycerin/Dextrose (NITROGLYCERIN 50,000MCG/D5W 250ML) 250 ML ASDIR IV (DC) Norepinephrine Bitartrate (NOREPINEPHRINE 8 MG/NS 250 ML) 250 ML TITRATE IV (DC) Ondansetron HCl (ZOFRAN) 4 MG Q6H PRN PRN IV Oxycodone HCl (ROXICODONE) 5 MG Q4H PRN PRN PO Oxycodone HCl (ROXICODONE) 10 MG Q4H PRN PRN PO Potassium Chloride (KCL 20MEQ/SWFI 100ML) 100 ML ASDIR PRN IV (DC) Sodium Bicarbonate (SODIUM BICARBONATE) 50 MEQ ASDIR PRN IV (DC) Acetaminophen (TYLENOL EXTRA STRENGTH) 1,000 MG PREOP ONCALL PO (DC) Gabapentin (NEURONTIN) 200 MG PREOP ONCALL PO (DC) Lactated Ringer's (LACTATED RINGERS) 1,000 ML PREOP ONCALL IV (DC) Lidocaine HCl (LIDOCAINE HCL/PF) 2 ML PREOP ONCALL LOCAL (DC) Lidocaine HCl (LIDOCAINE HCL/PF) 2 ML PREOP ONCALL LOCAL (DC) Sodium Chloride (SODIUM CHLORIDE 0.9%) 500 ML PREOP ONCALL IV (DC) Sodium Chloride (SODIUM CHLORIDE) 5 ML ASDIR PRN IV (DC) Sodium Chloride (SODIUM CHLORIDE) 10 ML ASDIR PRN IV (DC) Sodium Chloride (SODIUM CHLORIDE 0.9%) 250 ML ASDIR PRN IV (DC) Sodium Chloride (SODIUM CHLORIDE) 20 ML ASDIR IV ResultsFindings/Data:Laboratory Tests 01/06 01/06 0813 0359 Blood Gas [...] % (Auto) (14.0 - 32.0 %) 15.8 Kane % (Auto) (4.8 - 9.0 %) 12.4 H Eos % (Auto) (0.3 - 3.7 %) 1.7 Baso % (Auto) (0.0 - 2.0 %) 0.3 Neut # (Auto) (2.0 - 7.6 x10 3/uL) 6.98 Lymph # (Auto) (1.0 - 3.8 x10 3/uL) 1.60 Kane # (Auto) (0.1 - 0.8 x10 3/uL) 1.25 H Eos # (Auto) (0.0 - 0.2 x10 3/uL) 0.17 Baso # (Auto) (0.0 - 0.2 x10 3/uL) 0.03 Abs Immat Gran (auto) (0.00 - 0.03 x10 3/uL) 0.08 H Add Manual Diff NO Immature Gran % (0.0 - 2.0 %) 0.8 Nucleated RBC % (0 - 0 %) 0.0 Nucleated RBCs # (Man) (0.0 - 0.1 x10 3/uL) 0.00 Radiology data:Recent Impressions:RADIOLOGY - XR CHEST 1 V 01/06 0458 Report Impression - Status: SIGNED Entered: 01/06/2023 0805 IMPRESSION: 1. Improvement of bilateral upper lobe and right basilar opacity since the most recent exam. 2. Dense opacification of the left lung base, mildly increased. Impression By: Alexy1 - Pk Obregon M.D. Results: labs reviewed, vital signs stable, rythm personally rev'd, x-ray personally reviewed, current med profile rev'd Treatment Prophylaxis Treatment ProphylaxisOxygen: nasal cannula Quality: Trauma Gen Surg Advanced Care Plan 65 or OlderDiscussed with: patient Diagnosis, Assessment PlanHospital course to date:This is a 52-year-old gentleman with a past medical history of hypertension who initially presented to an outside hospital with complaints of back pain, and chest pains.He reports the back pain as mid upper back pain that occurred over the last couple of weeks. Usually pain is worse with changing positionThe patient reports he started to develop chest pains located midsternal for thepast 2 weeks. He denies any radiating symptoms.Describes the chest pains as a heaviness, squeezing sensation. Denies any syncope, palpitations. Denies any nausea vomiting or diaphoresis. Patient underwent left heart catheterization by Dr. Felton at [facility] this showed multivessel CAD with a 90% LAD, 60-70% left main, 70-80% circumflex. An echocardiogram was also done at [facility] on 12/28/2022. This showed a normal left ventricular ejection fraction of 55-60%, moderate LVH, mild mitral regurgitation, grade 1 diastolic dysfunction. The patient does admit to smoking 1-2 times per week. Does admit to alcohol 1-2times per week. Patient does have a strong family history of coronary artery disease in his father and his grandmother.Denies any surgical history, Review of the records from [facility] show the patient was admitted with a troponin peak of 483. Hemoglobin A1c was noted to be 5.5. Renal function appears normal. Patient was transferred to [facility] for evaluation for coronary bypass graft surgery.Hemoglobin A1c noted to be 5.5 at [facility] Assessment/plan1.coronary artery disease Begin work-up for coronary artery bypass graft with appropriate studies.2. Hypertension3. Chest pains Patient has been seen and examined by Dr. Crabtree. Work-up underway for coronary artery bypass graft surgery. Further recommendations to follow 12/31/22Patient resting comfortable denies pain.QJMa7Etffmbfunzr: 100% oxygen on room air.Cardiac: Remains sinus rhythmGI: Denies constipation diarrhea positive bowel movement.: Voiding well.Carotid ultrasound shows no significant carotid artery stenosisVein mapping completeMRSA positive in the nares, on appropriate Bactroban intranasal treatment.Likely consider coronary artery bypass surgery early next week.Patient was seen and examined by Dr. Crabtree. Further recommendations to follow 01/01Patient resting comfortable denies pain.TRJn1Gqfqkublurw: 100% oxygen on room air.Cardiac: Remains sinus rhythmGI: Denies constipation or diarrhea, positive bowel movement.: Voiding well.MRSA positive in the nares, on appropriate Bactroban intranasal treatment.Pulmonary consulted for history of smoking and abnormal CT suggestive of emphysema.PFT hopefully to be completed in the morning. STS 0.39%Patient was seen and examined by Dr. Crabtree. Further recommendations to followCoronary artery bypass graft surgery was discussed with the patient. The risk of the operation including , bleeding, infection, heart attack, stroke, pneumonia, renal failure, dialysis, prolonged ICU stay, car tracheostomy, need for long-term rehabilitation were all discussed with the patient. Patient's questions were answered and the patient agreed to proceed with surgery. 01/03/23POD 1CABG x 4 (BURDICK-LAD, SVG-Ramus, SVG-OM, SVG-PDA), ALAA, EVH (RGSV), Posterior pericartiotomyPatient hemodynamically stable post operatively, not requiring pressors or inotropesOn 3l nasal cannula, wean off as tolerated to keep O2 sats > 92%, nebsEncourage deep breathing and incentive spirometer useLabs and chest x-ray reviewed-stableNSR on cardiac cath technologist, no ectopy, continue amio, bb, asa, plavix, lipitorKeep both chest tubes and monitorIncrease po intake, Cardiac diet, nutritional supplementsGlycemic control on insulin drip- monitor blood sugarsBowel regimen protocolPT/OT- ambulateKeep patient in CVICU, continue supportive carePatient seen with Dr. Crabtree, discussed plan of care with multidisciplinary team. 01/04 Patient is alert and oriented, up in the recliner, complaining of back painLeft pleural chest tube discontinued to minimize pain and facilitate deep breathingMultimodal pain controlChest x-ray showed atelectasis. Wean O2 as tolerated, encourage I-S and ambulationPulmonary toilet, MucomystDiscontinue central lineNormal renal function, discontinue Siddiqui catheterGlycemic controlKeep in CVICU for close monitoringPatient seen and plan reviewed with the Bro multidisciplinary team 01/05 Overall doing better today, pain improvedDiscontinue chest tubeChest x-ray reviewed. Gentle diuresis with Lasix 20 mg IV onceEncourage I-S and mobilizationPT/OTTransfer to intermediate carePatient seen and plan reviewed with the Bro multidisciplinary team 01/06/23POD 4Patient recovering well, no complaints.Alert, awake and oriented Breathing comfortable on room air, keep O2 sats > 92%I-S use encouraged and deep breathingNSR on cardiac monitorGood response to lasix, UOP 1450 last nightStrict I Os, daily weightsCardiac dietBowel regimenPain controlledSCDs for DVT prophylaxisTransfer to [facility] seen with Dr. Crabtree and plan of care discussed with team. Plan discussed with: patient, admitting physician, consultants, nurse, interdisccare team at 1551 at 1808 RPT #:[id number] OF REPORTPRProgress [id number]:14:00G.[id number] for patient [id number]:51:42 [facility] 2023-01-06 10:48:00 [id number] X [id number]+[id number]+mmFd4U9227-4 01-06T10:48:00 [facility] CenterCard[facility] Progress NoteREPORT#:[id number] REPORT STATUS: SignedDATE:01/06/23 TIME: 1048 PATIENT: SHEKHAR LOZADA UNIT #: [id number]#: [id number] [facility]DOB: [birth year] AGE: 52 SEX: M ATTEND: Eric Crabtree [facility] AUTHOR: Juanis Blevins * ALL edits or amendments must be made on the electronic/computer document * SubjectivePatient reports:No: complaints. Objective GeneralVS/I O:24 hour I O ending at 0700: 01/06 0700 01/05 1900 Intake Total 340.00 740 Output Total 1200 1200 Balance -860.00 -460 Intake, IV 100.00 Intake, Oral 240 740 Number Voids 4 Output, Urine 1200 1200 Patient 111 kg Weight Weight Standing scale Measurement Method Vital Signs: Date Time Temp Pulse Resp B/P B/P Pulse O2 O2 Flow FiO2 Mean Ox Delivery Rate 01/06 0957 [...] 23 126/64 88 94 01/05 2130 95 01/05 2101 83 20 118/55 79 97 01/05 202 87 30 135/79 101 95 01/06 2000 80 15 01/06 2000 36.8 01/05 194 Nasal 2 cannula 01/05 1900 85 17 01/05 1530 37.3 01/05 1100 37.0 87 22 120/56 82 93 PATIENT WEIGHT: Weight (lb): 244Weight (oz): 11.41Weight (kg): 111.000 Medications:Active Meds + DC'd Last 24 HrsFurosemide (LASIX 20MG INJ) 20 MG ONCE ONE IV (DC) Lactulose (LACTULOSE) 20 GM ONCE ONE PO (DC) Ipratropium Bent (ATROVENT) 500 MCG RTQ2H PRN PRN INH Cyanocobalamin (Vitamin B-12 500 mcg tab) 500 MCG DAILY PO Ferrous Sulfate (FERROUS SULFATE) 325 MG DAILY PO Lidocaine (LIDODERM) 1 PATCH DAILY TOPICAL Acetylcysteine (MUCOMYST FOR RT) 200 MG RTQ8H NEB Bisacodyl (DULCOLAX) 10 MG ONCE PRN RECTAL [...] (Senna Lax 8.6 MG TABLET) 17.2 MG BEDTIME PO Acetaminophen (TYLENOL) 650 MG Q4H PRN PRN PO Acetaminophen (TYLENOL) 650 MG Q4H PRN PRN RECTAL Calcium Chloride (CALCIUM CHLORIDE) 1 GM ASDIR PRN IV (DC) Dextrose/Water (DEXTROSE 10% IN WATER) 125 ML ASDIR PRN IV (CKD) Dextrose/Water (DEXTROSE 10% IN WATER) 250 ML ASDIR PRN IV (CKD) Epinephrine (ADRENALIN CHLORIDE) 4 MG ASDIR IV (DC) Dextrose/Water (DEXTROSE 5% WATER) 246 MLGlucagon (GLUCAGON) 1 MG ASDIR PRN IM Ipratropium Bent (ATROVENT) 500 MCG RTQ4H INH Magnesium Sulfate (MAGNESIUM SULFATE 4GM/SWFI 100ML) 100 ML ASDIR PRN IV Magnesium Sulfate (MAGNESIUM SULFATE 2GM/SWFI 50ML) 50 ML ASDIR PRN IV Magnesium Sulfate/Dextrose (MAGNESIUM SULFATE 1GM/D5W 100ML) 100 ML ASDIR PRN IV Nitroglycerin/Dextrose (NITROGLYCERIN 50,000MCG/D5W 250ML) 250 ML ASDIR IV (DC) Norepinephrine Bitartrate (NOREPINEPHRINE 8 MG/NS 250 ML) 250 ML TITRATE IV (DC) Ondansetron HCl (ZOFRAN) 4 MG Q6H PRN PRN IV Oxycodone HCl (ROXICODONE) 5 MG Q4H PRN PRN PO Oxycodone HCl (ROXICODONE) 10 MG Q4H PRN PRN PO Potassium Chloride (KCL 20MEQ/SWFI 100ML) 100 ML ASDIR PRN IV (DC) Sodium Bicarbonate (SODIUM BICARBONATE) 50 MEQ ASDIR PRN IV (DC) Acetaminophen (TYLENOL EXTRA STRENGTH) 1,000 MG PREOP ONCALL PO (DC) Gabapentin (NEURONTIN) 200 MG PREOP ONCALL PO (DC) Lactated Ringer's (LACTATED RINGERS) 1,000 ML PREOP ONCALL IV (DC) Lidocaine HCl (LIDOCAINE HCL/PF) 2 ML PREOP ONCALL LOCAL (DC) Lidocaine HCl (LIDOCAINE HCL/PF) 2 ML PREOP ONCALL LOCAL (DC) Sodium Chloride (SODIUM CHLORIDE 0.9%) 500 ML PREOP ONCALL IV (DC) Sodium Chloride (SODIUM CHLORIDE) 5 ML ASDIR PRN IV (DC) Sodium Chloride (SODIUM CHLORIDE) 10 ML ASDIR PRN IV (DC) Sodium Chloride (SODIUM CHLORIDE 0.9%) 250 ML ASDIR PRN IV (DC) Sodium Chloride (SODIUM CHLORIDE) 20 ML ASDIR IV Status post:4V CABG and ALAA Physical ExamGeneral appearance: alert, awake, orientedNeck: full range of motion, non-tender, supple/no meningismus, no bruit/NL carotids, no JVDCardiovascular: CV assessment: pedal edema, regular rate and rhythmRespiratory: decreased breath sounds, on oxygen, no distressAbdomen: non-tender, obeseGenitourinary: no urinary catheterLower extremity: LE assessment: edemaMusculoskeletal: normal inspectionNeuro/NEURO UROLOGIST: alert, oriented X 3, normal speechSkin: dryPsychiatry: normal affect, normal mood ResultsFindings/Data:Laboratory Tests 01/06 01/06 0813 0359 Blood Gas [...] % (Auto) (14.0 - 32.0 %) 15.8 Kane % (Auto) (4.8 - 9.0 %) 12.4 H Eos % (Auto) (0.3 - 3.7 %) 1.7 Baso % (Auto) (0.0 - 2.0 %) 0.3 Neut # (Auto) (2.0 - 7.6 x10 3/uL) 6.98 Lymph # (Auto) (1.0 - 3.8 x10 3/uL) 1.60 Kane # (Auto) (0.1 - 0.8 x10 3/uL) 1.25 H Eos # (Auto) (0.0 - 0.2 x10 3/uL) 0.17 Baso # (Auto) (0.0 - 0.2 x10 3/uL) 0.03 Abs Immat Gran (auto) (0.00 - 0.03 x10 3/uL) 0.08 H Add Manual Diff NO Immature Gran % (0.0 - 2.0 %) 0.8 Nucleated RBC % (0 - 0 %) 0.0 Nucleated RBCs # (Man) (0.0 - 0.1 x10 3/uL) 0.00 Laboratory Tests 01/06 0250 Chemistry Magnesium (1.80 - 2.40 mg/dL) 2.03 Radiology data:Recent Impressions:RADIOLOGY - XR CHEST 1 V 01/06 0458 Report Impression - Status: SIGNED Entered: 01/06/2023 0805 IMPRESSION: 1. Improvement of bilateral upper lobe and right basilar opacity since the most recent exam. 2. Dense opacification of the left lung base, mildly increased. Impression By: Alexy1 - Pk Obregon M.D. Results: labs reviewed, vital signs reviewed, rhythm personally rev'dTelemetry Interpretation:sinus rhythm Diagnosis, Assessment PlanPlan discussed with: patient, nurse Free Text DxA P NotesFree Text DxA P Notes:52-year-old male with medical history of hypertension, lifelong smoker,alcohol use who presents to ED at [facility] with back pain and chest pain. He was ruled in for non-STEMI. Taken to [facility] where he was found to have multivessel CAD with tight left main. Patient is transferred here for CABG evaluation. He is not having active chest pain. His main complaint is back pain and headache. His blood pressure is markedly elevated at the time of visit,208/111 mmHg. 1. NSTEMI/multivessel CAD with left main disease s/p 4V CABG and ALAAawake and alert, on nasal cannulaon DAP, BB, statinpostop care per CTSDiuresis per CTS 2. HypertensionBP stableContinue beta-alejandra 3. Tobacco and alcohol useCounseled cessationpulmo following 4. Chronic back pain.manage per primary team Doing well. at 1457 at 0946 RPT #:[id number] OF REPORTPRProgress [id number]:48:[id number] for patient [id number]:58:09 [facility] 2023-01-06 10:36:00 [id number] K [id number]+eT+[id number] 01-06T10:36:00 [facility] ([facility])Pulmonology Progress NoteREPORT#:[id number] REPORT STATUS: SignedDATE:01/06/23 TIME: 103 PATIENT: SHEKHAR LOZADA UNIT #: [id number] [address] [birth year] AGE: 52 SEX: M ATTEND: Eric Crabtree [facility] AUTHOR: Rod Hancock SECURITY AND COMPLIANCE PROJECT MANAGER * ALL edits or amendments must be made on the electronic/computer document * Rod Hancock 01/06/23 1036:SubjectiveChief complaint:He is feeling better.Not in distress.On 3 liter NC.Breathing is stable.No N/v/d.BP and HR stable. Review of Systems ROSConstitutional:fatigue, generalized weakness. ENT:Denies: mouth pain, sinus problem, sore throat, throat pain. Respiratory:Reports: KISER (dyspnea on exertion), SOB. Denies: hemoptysis, pleurisy, pleuritic pain, pneumonia, productive cough (sputum). Cardiovascular:Reports: chest pain. Denies: KISER (dyspnea on exertion), orthopnea, palpitations. GI:Denies: constipation, GERD, hematochezia, melena. :Denies: flank pain, testicular swelling. Musculoskeletal:Denies: extremity pain, joint swelling, neck pain, thoracic pain. Heme:Denies: bleeding, bruising. Neuro:Denies: change in LOC, dizziness, focal weakness, gait problem, headache, spinning sensation, syncope. Objective GeneralVS/I O:Last Documented: Result Date Time Pulse Ox 93 01/06 09 B/P 113/68 01/06 0957 B/P Mean 0.0 01/06 957 Temp 37.3 01/06 09 Pulse 78 01/06 0957 Resp 18 01/06 09 O2 Delivery Nasal cannula 01/05 1945 O2 [...] scale Measurement Method PATIENT WEIGHT: Weight (lb): 244Weight (oz): 11.41Weight (kg): 111.000 Medications:Active Meds + DC'd Last 24 HrsFurosemide (LASIX 20MG INJ) 20 MG ONCE ONE IV (DC) Lactulose (LACTULOSE) 20 GM ONCE ONE PO (DC) Ipratropium Bent (ATROVENT) 500 MCG RTQ2H PRN PRN INH Cyanocobalamin (Vitamin B-12 500 mcg tab) 500 MCG DAILY PO Ferrous Sulfate (FERROUS SULFATE) 325 MG DAILY PO Lidocaine (LIDODERM) 1 PATCH DAILY TOPICAL Acetylcysteine (MUCOMYST FOR RT) 200 MG RTQ8H NEB Bisacodyl (DULCOLAX) 10 MG ONCE PRN RECTAL [...] (Senna Lax 8.6 MG TABLET) 17.2 MG BEDTIME PO Acetaminophen (TYLENOL) 650 MG Q4H PRN PRN PO Acetaminophen (TYLENOL) 650 MG Q4H PRN PRN RECTAL Calcium Chloride (CALCIUM CHLORIDE) 1 GM ASDIR PRN IV (DC) Dextrose/Water (DEXTROSE 10% IN WATER) 125 ML ASDIR PRN IV (CKD) Dextrose/Water (DEXTROSE 10% IN WATER) 250 ML ASDIR PRN IV (CKD) Epinephrine (ADRENALIN CHLORIDE) 4 MG ASDIR IV (DC) Dextrose/Water (DEXTROSE 5% WATER) 246 MLGlucagon (GLUCAGON) 1 MG ASDIR PRN IM Ipratropium Bent (ATROVENT) 500 MCG RTQ4H INH Magnesium Sulfate (MAGNESIUM SULFATE 4GM/SWFI 100ML) 100 ML ASDIR PRN IV Magnesium Sulfate (MAGNESIUM SULFATE 2GM/SWFI 50ML) 50 ML ASDIR PRN IV Magnesium Sulfate/Dextrose (MAGNESIUM SULFATE 1GM/D5W 100ML) 100 ML ASDIR PRN IV Nitroglycerin/Dextrose (NITROGLYCERIN 50,000MCG/D5W 250ML) 250 ML ASDIR IV (DC) Norepinephrine Bitartrate (NOREPINEPHRINE 8 MG/NS 250 ML) 250 ML TITRATE IV (DC) Ondansetron HCl (ZOFRAN) 4 MG Q6H PRN PRN IV Oxycodone HCl (ROXICODONE) 5 MG Q4H PRN PRN PO Oxycodone HCl (ROXICODONE) 10 MG Q4H PRN PRN PO Potassium Chloride (KCL 20MEQ/SWFI 100ML) 100 ML ASDIR PRN IV (DC) Sodium Bicarbonate (SODIUM BICARBONATE) 50 MEQ ASDIR PRN IV (DC) Acetaminophen (TYLENOL EXTRA STRENGTH) 1,000 MG PREOP ONCALL PO (DC) Gabapentin (NEURONTIN) 200 MG PREOP ONCALL PO (DC) Lactated Ringer's (LACTATED RINGERS) 1,000 ML PREOP ONCALL IV (DC) Lidocaine HCl (LIDOCAINE HCL/PF) 2 ML PREOP ONCALL LOCAL (DC) Lidocaine HCl (LIDOCAINE HCL/PF) 2 ML PREOP ONCALL LOCAL (DC) Sodium Chloride (SODIUM CHLORIDE 0.9%) 500 ML PREOP ONCALL IV (DC) Sodium Chloride (SODIUM CHLORIDE) 5 ML ASDIR PRN IV (DC) Sodium Chloride (SODIUM CHLORIDE) 10 ML ASDIR PRN IV (DC) Sodium Chloride (SODIUM CHLORIDE 0.9%) 250 ML ASDIR PRN IV (DC) Sodium Chloride (SODIUM CHLORIDE) 20 ML ASDIR IV Dietitian nutrition assessmentThe data set between the solid lines has been imported from the dietitian's assessment. BMI Calculated: 40.7Nutrition related diagnosis: Nutrition diagnosis details: Nutrition problem: Altered nutrition labsNutrition etiology: Excessive oral intakeNutrition signs and symptoms: ELEVATED TRIGLYCERIDES , CHOL/HDL RATIONutrition prescription: 1. CONTINUE CARDIAC DIETDietitian name: Vida Garcia RD, LDAssessment completed: 01/03/23 Physical ExamGeneral appearance: alert, awake, orientedHead/eyes: atraumatic, normocephalic, PERRLANeck: decreased range of motionCardiovascular: normal heart sounds, normal S1/S2, regular rate rhythmRespiratory/chest: aerating well, clear to auscultation, symmetric expansion, nodistressAbdomen: soft, non-tender, no CVA tendernessGenitourinary: no bladder distention, no flank painExtremities: no clubbing, no cyanosis, no edemaMusculoskeletal: no muscle spasmNeuro/NEURO UROLOGIST: alert, oriented X 3, CNII-XII intactSkin: dry, intactPsychiatry: normal affect, normal mood ResultsFindings/Data:Laboratory Tests 01/06/23249:[Embedded Image Not Available]Laboratory Tests 01/06 01/06 0813 0359 Blood Gas [...] % (Auto) (14.0 - 32.0 %) 15.8 Kane % (Auto) (4.8 - 9.0 %) 12.4 H Eos % (Auto) (0.3 - 3.7 %) 1.7 Baso % (Auto) (0.0 - 2.0 %) 0.3 Neut # (Auto) (2.0 - 7.6 x10 3/uL) 6.98 Lymph # (Auto) (1.0 - 3.8 x10 3/uL) 1.60 Kane # (Auto) (0.1 - 0.8 x10 3/uL) 1.25 H Eos # (Auto) (0.0 - 0.2 x10 3/uL) 0.17 Baso # (Auto) (0.0 - 0.2 x10 3/uL) 0.03 Abs Immat Gran (auto) (0.00 - 0.03 x10 3/uL) 0.08 H Add Manual Diff NO Immature Gran % (0.0 - 2.0 %) 0.8 Nucleated RBC % (0 - 0 %) 0.0 Nucleated RBCs # (Man) (0.0 - 0.1 x10 3/uL) 0.00 Radiology data:Recent Impressions:RADIOLOGY - XR CHEST 1 V 01/06 0458 Report Impression - Status: SIGNED Entered: 01/06/2023 0805 IMPRESSION: 1. Improvement of bilateral upper lobe and right basilar opacity since the most recent exam. 2. Dense opacification of the left lung base, mildly increased. Impression By: Rosio.LS1 - Pk Obregon M.D. Results: labs reviewed, vital signs reviewed, vital signs stable, x-ray personally reviewed, current med profile rev'd Treatment Prophylaxis Treatment ProphylaxisOxygen: nasal cannula Diagnosis, Assessment PlanFree Text A P:Assessment and Plan: - Dyspnea due to Multivessel CAD and Emphysema.- Emphysema/COPD.- Multivessel CAD.- CP due to CAD.- HX of HTN.- Smoker. - S/p CABG x 4 (BURDICK-LAD, SVG-Ramus, SVG-OM, SVG-PDA), ALAA, EVH (RGSV) and Posterior pericartiotomy. Plan: CVN1.Will continue Monitor respiratory status, breathing tx, o2 support.Pain meds.Antiemetics.Follow labs and replace as needed.SCDs for DVT ppx.Continue Home meds.Monitor.Code status: full codePlan discussed with: patient, admitting physician, consultants, nurse Quality: Gen Med Crit Care Advanced Care Plan 65 or OlderDiscussed with: patient Jessi Chavez 01/08/23 0105:Attestations Physician AttestationAgree w/findings plan:Patient seen and examined, I agree with the findings and plans as documented by Rod Hancock NP at 1038 at 0111 RPT #:[id number] OF REPORTPRProgress [id number]:36:[id number] for patient [id number]:38:55 [facility] 2023-01-05 12:21:00 [id number] 6 [id number]/[id number]+Q4HRMv6ctuC4344-8 2:21:00 [facility] ([facility])Pulmonology Progress NoteREPORT#:[id number] REPORT STATUS: SignedDATE:01/05/23 TIME: 1221 PATIENT: SHEKHAR LOZADA UNIT #: [id number]#: [id number] [address] [birth year] AGE: 52 SEX: M ATTEND: Eric Crabtree [facility] AUTHOR: Rod Hancock SECURITY AND COMPLIANCE PROJECT MANAGER * ALL edits or amendments must be made on the electronic/computer document * Rod Hancock 01/05/23 1221:SubjectiveChief complaint:He is on 3 liter NC.Breathing is stable.No N/v/d.BP and HR stable. Review of Systems ROSConstitutional:fatigue, generalized weakness. Skin:Denies: itching, laceration, rash. Allergy/Immun:Denies: anaphylaxis, itching, rhinorrhea. Eyes:Denies: visual loss/blurred, diplopia, eye pain. ENT:Denies: mouth pain, sinus problem, sore throat, throat pain. Respiratory:Reports: KISER (dyspnea on exertion), SOB. Denies: hemoptysis, pleurisy, pleuritic pain, pneumonia, productive cough (sputum). Cardiovascular:Reports: chest pain. Denies: KISER (dyspnea on exertion), orthopnea, palpitations. GI:Denies: constipation, GERD, hematochezia, melena. :Denies: flank pain, testicular swelling. Musculoskeletal:Denies: extremity pain, joint swelling, neck pain, thoracic pain. Heme:Denies: bleeding, bruising. Neuro:Denies: change in LOC, dizziness, focal weakness, gait problem, headache, spinning sensation, syncope. All systems rev neg: except as marked Objective GeneralVS/I O:Last Documented: Result Date Time Pulse Ox 93 [...] scale Measurement Method PATIENT WEIGHT: Weight (lb): 246Weight (oz): 7.63Weight (kg): 111.800 Medications:Active Meds + DC'd Last 24 HrsIpratropium Bent (ATROVENT) 500 MCG RTQ2H PRN PRN INH Cyanocobalamin (Vitamin B-12 500 mcg tab) 500 MCG DAILY PO Ferrous Sulfate (FERROUS SULFATE) 325 MG DAILY PO Lidocaine (LIDODERM) 1 PATCH DAILY TOPICAL Furosemide (LASIX 20MG INJ) 20 MG ONCE ONE IV (DC) Acetylcysteine (MUCOMYST FOR RT) 200 MG RTQ8H NEB Bisacodyl (DULCOLAX) 10 MG ONCE PRN RECTAL Magnesium Hydroxide (MILK OF MAGNESIA) 30 ML ONCE PRN PO (DC) Atorvastatin Calcium (LIPITOR) 40 [...] (Senna Lax 8.6 MG TABLET) 17.2 MG BEDTIME PO Acetaminophen (TYLENOL) 650 MG Q4H PRN PRN PO Acetaminophen (TYLENOL) 650 MG Q4H PRN PRN RECTAL Calcium Chloride (CALCIUM CHLORIDE) 1 GM ASDIR PRN IV Dextrose/Water (DEXTROSE 10% IN WATER) 125 ML ASDIR PRN IV (CKD) Dextrose/Water (DEXTROSE 10% IN WATER) 250 ML ASDIR PRN IV (CKD) Epinephrine (ADRENALIN CHLORIDE) 4 MG ASDIR IV Dextrose/Water (DEXTROSE 5% WATER) 246 MLGlucagon (GLUCAGON) 1 MG ASDIR PRN IM Ipratropium Bent (ATROVENT) 500 MCG RTQ4H INH Magnesium Sulfate (MAGNESIUM SULFATE 4GM/SWFI 100ML) 100 ML ASDIR PRN IV Magnesium Sulfate (MAGNESIUM SULFATE 2GM/SWFI 50ML) 50 ML ASDIR PRN IV Magnesium Sulfate/Dextrose (MAGNESIUM SULFATE 1GM/D5W 100ML) 100 ML ASDIR PRN IV Morphine Sulfate (morphine SULFATE) 4 MG Q2H PRN PRN IV (DC) Nitroglycerin/Dextrose (NITROGLYCERIN 50,000MCG/D5W 250ML) 250 ML ASDIR IV Norepinephrine Bitartrate (NOREPINEPHRINE 8 MG/NS 250 ML) 250 ML TITRATE IV Ondansetron HCl (ZOFRAN) 4 MG Q6H PRN PRN IV Oxycodone HCl (ROXICODONE) 5 MG Q4H PRN PRN PO Oxycodone HCl (ROXICODONE) 10 MG Q4H PRN PRN PO Potassium Chloride (KCL 20MEQ/SWFI 100ML) 100 ML ASDIR PRN IV Sodium Bicarbonate (SODIUM BICARBONATE) 50 MEQ ASDIR PRN IV Sodium Chloride (SODIUM CHLORIDE 0.9%) 1,000 ML .Q20H IV (DC) Sodium Chloride (SODIUM CHLORIDE 0.9%) 250 ML Q24H IV (DC) Acetaminophen (TYLENOL EXTRA STRENGTH) 1,000 MG PREOP ONCALL PO (CKD) Gabapentin (NEURONTIN) 200 MG PREOP ONCALL PO (CKD) Lactated Ringer's (LACTATED RINGERS) 1,000 ML PREOP ONCALL IV Lidocaine HCl (LIDOCAINE HCL/PF) 2 ML PREOP ONCALL LOCAL Lidocaine HCl (LIDOCAINE HCL/PF) 2 ML PREOP ONCALL LOCAL Sodium Chloride (SODIUM CHLORIDE 0.9%) 500 ML PREOP ONCALL IV Sodium Chloride (SODIUM CHLORIDE) 5 ML ASDIR PRN IV Sodium Chloride (SODIUM CHLORIDE) 10 ML ASDIR PRN IV Sodium Chloride (SODIUM CHLORIDE 0.9%) 250 ML ASDIR PRN IV Sodium Chloride (SODIUM CHLORIDE) 20 ML ASDIR IV Dietitian nutrition assessmentThe data set between the solid lines has been imported from the dietitian's assessment. BMI Calculated: 41.0Nutrition related diagnosis: Nutrition diagnosis details: Nutrition problem: Altered nutrition labsNutrition etiology: Excessive oral intakeNutrition signs and symptoms: ELEVATED TRIGLYCERIDES , CHOL/HDL RATIONutrition prescription: 1. CONTINUE CARDIAC DIETDietitian name: Vida Garcia RD, LDAssessment completed: 01/03/23 Physical ExamGeneral appearance: alert, awake, orientedHead/eyes: atraumatic, normocephalic, PERRLANeck: decreased range of motionCardiovascular: normal heart sounds, normal S1/S2, regular rate rhythmRespiratory/chest: aerating well, clear to auscultation, symmetric expansion, nodistressAbdomen: soft, non-tender, no CVA tendernessGenitourinary: no bladder distention, no flank painExtremities: no clubbing, no cyanosis, no edemaMusculoskeletal: no muscle spasmNeuro/NEURO UROLOGIST: alert, oriented X 3, CNII-XII intactSkin: dry, intactPsychiatry: normal affect, normal mood ResultsFindings/Data:Laboratory Tests 01/05/23 0235:[Embedded Image Not Available] 01/04/23 1420:[Embedded Image Not Available]Laboratory Tests 01/05 0355 Blood Gas Puncture Site [...] (Auto) (14.0 - 32.0 %) 11.4 L Kane % (Auto) (4.8 - 9.0 %) 12.8 H Eos % (Auto) (0.3 - 3.7 %) 0.3 Baso % (Auto) (0.0 - 2.0 %) 0.2 Neut # (Auto) (2.0 - 7.6 x10 3/uL) 8.74 H Lymph # (Auto) (1.0 - 3.8 x10 3/uL) 1.33 Kane # (Auto) (0.1 - 0.8 x10 3/uL) 1.50 H Eos # (Auto) (0.0 - 0.2 x10 3/uL) 0.03 Baso # (Auto) (0.0 - 0.2 x10 3/uL) 0.02 Abs Immat Gran (auto) (0.00 - 0.03 x10 3/uL) 0.07 H Add Manual Diff NO Immature Gran % (0.0 - 2.0 %) 0.6 Nucleated RBC % (0 - 0 %) 0.0 Nucleated RBCs # (Man) (0.0 - 0.1 x10 3/uL) 0.00 Radiology data:Recent Impressions:RADIOLOGY - XR CHEST 1 V 01/05 0700 Report Impression - Status: SIGNED Entered: 01/05/2023 0817 IMPRESSION: 1. Mild worsening right basilar opacities. 2. Removal of left chest tube. Suspected small left pneumothorax involving 10% volume. 3. Removal of the right IJ central line. Impression By: [email or web address] - Hilario Bentley M.D. Results: labs reviewed, vital signs reviewed, vital signs stable, x-ray personally reviewed, current med profile rev'd Treatment Prophylaxis Treatment ProphylaxisOxygen: nasal cannulaCVC/PICC documentation:The data below has been imported from nursing documentation. Any exceptions have been noted below under Provider comments. CVC/PICC insertion date/time: No CVC/PICC Provider comments on imported nursing data: [] Diagnosis, Assessment PlanFree Text A P:Assessment and Plan: - Dyspnea due to Multivessel CAD and Emphysema.- Emphysema/COPD.- Multivessel CAD.- CP due to CAD.- HX of HTN.- Smoker. - S/p CABG x 4 (BURDICK-LAD, SVG-Ramus, SVG-OM, SVG-PDA), ALAA, EVH (RGSV) and Posterior pericartiotomy. Plan: CVICU.He has bilateral shoulder and neck pain.He is breathing stable on 3 liter nasal cannula.Chest tube removed yesterday.Voiding, siddiqui discontinued.Will continue Monitor respiratory status, breathing tx, o2 support.Pain meds.Antiemetics.Follow labs and replace as needed.SCDs for DVT ppx.Continue Home meds.Monitor.Code status: full codePlan discussed with: patient, admitting physician, consultants, nurse Quality: [facility] Crit Care Advanced Care Plan 65 or OlderDiscussed with: patient Jessi Chavez 01/06/23 0025:Attestations Physician AttestationAgree w/findings plan:Patient seen and examined, I agree with the findings and plans as documented by Rod Hancock NP at 1230 at 0032 RPT #:[id number] OF REPORTPRProgress [id number]:21:00G.[id number] 5AVAvailable for patient [id number]:30:50 [facility] 2023-01-05 12:16:00 [id number] S [id number] 01-05T12:16:00 [facility] CenterCard[facility] ProgREPORT#:[id number] REPORT STATUS: SignedDATE:01/05/23 TIME: 1216 PATIENT: SHEKHAR LOZADA UNIT #: [id number]#: [id number] [address] [birth year] AGE: 52 SEX: M ATTEND: Eric Crabtree [facility] AUTHOR: Caro Bingham NP * ALL edits or amendments must be made on the electronic/computer document * GeneralPost-op: day 3Status post:01/02/23CABG x 4 (BURDICK-LAD, SVG-Ramus, SVG-OM, SVG-PDA)ALAAEVH (RGSV)Posterior pericartiotomy SubjectiveChief complaint:Multi-vessel CAD-s/p CABG Review of SystemsConstitutional:Denies: fever, malaise. Skin:Denies: rash. Allergy/Immun:Denies: anaphylaxis, hives, itching. Eyes:Denies: redness, discharge, swelling. ENT:Denies: ear drainage, ear ringing. Respiratory:Denies: SOB, wheezing. Cardiovascular:Denies: chest pain, KISER (dyspnea on exertion), edema. GI:Denies: constipation, diarrhea. :Denies: hematuria, nocturia. Musculoskeletal:Denies: joint pain, joint swelling. Heme:Denies: bleeding, bruising. Endocrine:Denies: polydipsia, polyuria. Neuro:Denies: confusion, dizziness. All systems rev neg: except as marked Objective GeneralVS/I OLast Documented: Result Date Time Pulse Ox 93 [...] scale Measurement Method PATIENT WEIGHT: Weight (lb): 246Weight (oz): 7.63Weight (kg): 111.800 Physical ExamGeneral appearance: alert, orientedWound/incision: Location:sternal Site condition: dressing clean dry, dressing intactHEENT: anicteric, mucosal membranes moistNeck: full range of motion, non-tenderCardiovascular: BP/pulses equal bilat., regular rate rhythmRespiratory: crackles, decreased breath sounds, aerating well, symmetric expansion, no distressAbdomen: soft, non-tenderExtremities: dry, moves allMusculoskeletal: full range of motion, painless range of motionNeuro/NEURO UROLOGIST: alert, oriented X 3, normal speech, no motor deficitsSkin: dry, intactPsychiatry: normal affect, normal mood Current MedicationsMedications:Active Meds + DC'd Last 24 HrsIpratropium Bent (ATROVENT) 500 MCG RTQ2H PRN PRN INH Cyanocobalamin (Vitamin B-12 500 mcg tab) 500 MCG DAILY PO Ferrous Sulfate (FERROUS SULFATE) 325 MG DAILY PO Lidocaine (LIDODERM) 1 PATCH DAILY TOPICAL Furosemide (LASIX 20MG INJ) 20 MG ONCE ONE IV (DC) Acetylcysteine (MUCOMYST FOR RT) 200 MG RTQ8H NEB Bisacodyl (DULCOLAX) 10 MG ONCE PRN RECTAL Magnesium Hydroxide (MILK OF MAGNESIA) 30 ML ONCE PRN PO (DC) Atorvastatin Calcium (LIPITOR) 40 [...] (Senna Lax 8.6 MG TABLET) 17.2 MG BEDTIME PO Acetaminophen (TYLENOL) 650 MG Q4H PRN PRN PO Acetaminophen (TYLENOL) 650 MG Q4H PRN PRN RECTAL Calcium Chloride (CALCIUM CHLORIDE) 1 GM ASDIR PRN IV Dextrose/Water (DEXTROSE 10% IN WATER) 125 ML ASDIR PRN IV (CKD) Dextrose/Water (DEXTROSE 10% IN WATER) 250 ML ASDIR PRN IV (CKD) Epinephrine (ADRENALIN CHLORIDE) 4 MG ASDIR IV Dextrose/Water (DEXTROSE 5% WATER) 246 MLGlucagon (GLUCAGON) 1 MG ASDIR PRN IM Ipratropium Bent (ATROVENT) 500 MCG RTQ4H INH Magnesium Sulfate (MAGNESIUM SULFATE 4GM/SWFI 100ML) 100 ML ASDIR PRN IV Magnesium Sulfate (MAGNESIUM SULFATE 2GM/SWFI 50ML) 50 ML ASDIR PRN IV Magnesium Sulfate/Dextrose (MAGNESIUM SULFATE 1GM/D5W 100ML) 100 ML ASDIR PRN IV Morphine Sulfate (morphine SULFATE) 4 MG Q2H PRN PRN IV (DC) Nitroglycerin/Dextrose (NITROGLYCERIN 50,000MCG/D5W 250ML) 250 ML ASDIR IV Norepinephrine Bitartrate (NOREPINEPHRINE 8 MG/NS 250 ML) 250 ML TITRATE IV Ondansetron HCl (ZOFRAN) 4 MG Q6H PRN PRN IV Oxycodone HCl (ROXICODONE) 5 MG Q4H PRN PRN PO Oxycodone HCl (ROXICODONE) 10 MG Q4H PRN PRN PO Potassium Chloride (KCL 20MEQ/SWFI 100ML) 100 ML ASDIR PRN IV Sodium Bicarbonate (SODIUM BICARBONATE) 50 MEQ ASDIR PRN IV Sodium Chloride (SODIUM CHLORIDE 0.9%) 1,000 ML .Q20H IV (DC) Sodium Chloride (SODIUM CHLORIDE 0.9%) 250 ML Q24H IV (DC) Acetaminophen (TYLENOL EXTRA STRENGTH) 1,000 MG PREOP ONCALL PO (CKD) Gabapentin (NEURONTIN) 200 MG PREOP ONCALL PO (CKD) Lactated Ringer's (LACTATED RINGERS) 1,000 ML PREOP ONCALL IV Lidocaine HCl (LIDOCAINE HCL/PF) 2 ML PREOP ONCALL LOCAL Lidocaine HCl (LIDOCAINE HCL/PF) 2 ML PREOP ONCALL LOCAL Sodium Chloride (SODIUM CHLORIDE 0.9%) 500 ML PREOP ONCALL IV Sodium Chloride (SODIUM CHLORIDE) 5 ML ASDIR PRN IV Sodium Chloride (SODIUM CHLORIDE) 10 ML ASDIR PRN IV Sodium Chloride (SODIUM CHLORIDE 0.9%) 250 ML ASDIR PRN IV Sodium Chloride (SODIUM CHLORIDE) 20 ML ASDIR IV ResultsFindings/Data:Laboratory Tests 01/05 0355 Blood Gas Puncture Site [...] Cannula Laboratory Tests 01/05 1954 1714 1420 Chemistry Sodium (134 - [...] (Auto) (14.0 - 32.0 %) 11.4 L Kane % (Auto) (4.8 - 9.0 %) 12.8 H Eos % (Auto) (0.3 - 3.7 %) 0.3 Baso % (Auto) (0.0 - 2.0 %) 0.2 Neut # (Auto) (2.0 - 7.6 x10 3/uL) 8.74 H Lymph # (Auto) (1.0 - 3.8 x10 3/uL) 1.33 Kane # (Auto) (0.1 - 0.8 x10 3/uL) 1.50 H Eos # (Auto) (0.0 - 0.2 x10 3/uL) 0.03 Baso # (Auto) (0.0 - 0.2 x10 3/uL) 0.02 Abs Immat Gran (auto) (0.00 - 0.03 x10 3/uL) 0.07 H Add Manual Diff NO Immature Gran % (0.0 - 2.0 %) 0.6 Nucleated RBC % (0 - 0 %) 0.0 Nucleated RBCs # (Man) (0.0 - 0.1 x10 3/uL) 0.00 Radiology data:Recent Impressions:RADIOLOGY - XR CHEST 1 V 01/05 0700 Report Impression - Status: SIGNED Entered: 01/05/2023 0817 IMPRESSION: 1. Mild worsening right basilar opacities. 2. Removal of left chest tube. Suspected small left pneumothorax involving 10% volume. 3. Removal of the right IJ central line. Impression By: Olivia - Hilario Bentley M.D. Quality: Trauma Gen Surg Advanced Care Plan 65 or OlderDiscussed with: patient Diagnosis, Assessment PlanHospital course to date:This is a 52-year-old gentleman with a past medical history of hypertension who initially presented to an outside hospital with complaints of back pain, and chest pains.He reports the back pain as mid upper back pain that occurred over the last couple of weeks. Usually pain is worse with changing positionThe patient reports he started to develop chest pains located midsternal for thepast 2 weeks. He denies any radiating symptoms.Describes the chest pains as a heaviness, squeezing sensation. Denies any syncope, palpitations. Denies any nausea vomiting or diaphoresis. Patient underwent left heart catheterization by Dr. Felton at [facility] this showed multivessel CAD with a 90% LAD, 60-70% left main, 70-80% circumflex. An echocardiogram was also done at [facility] on 12/28/2022. This showed a normal left ventricular ejection fraction of 55-60%, moderate LVH, mild mitral regurgitation, grade 1 diastolic dysfunction. The patient does admit to smoking 1-2 times per week. Does admit to alcohol 1-2times per week. Patient does have a strong family history of coronary artery disease in his father and his grandmother.Denies any surgical history, Review of the records from [facility] show the patient was admitted with a troponin peak of 483. Hemoglobin A1c was noted to be 5.5. Renal function appears normal. Patient was transferred to [facility] for evaluation for coronary bypass graft surgery.Hemoglobin A1c noted to be 5.5 at [facility] Assessment/plan1.coronary artery disease Begin work-up for coronary artery bypass graft with appropriate studies.2. Hypertension3. Chest pains Patient has been seen and examined by Dr. Crabtree. Work-up underway for coronary artery bypass graft surgery. Further recommendations to follow 12/31/22Patient resting comfortable denies pain.YSGs6Uopajdhbtex: 100% oxygen on room air.Cardiac: Remains sinus rhythmGI: Denies constipation diarrhea positive bowel movement.: Voiding well.Carotid ultrasound shows no significant carotid artery stenosisVein mapping completeMRSA positive in the nares, on appropriate Bactroban intranasal treatment.Likely consider coronary artery bypass surgery early next week.Patient was seen and examined by Dr. Crabtree. Further recommendations to follow 01/01Patient resting comfortable denies pain.FPEn7Gavjuknubrw: 100% oxygen on room air.Cardiac: Remains sinus rhythmGI: Denies constipation or diarrhea, positive bowel movement.: Voiding well.MRSA positive in the nares, on appropriate Bactroban intranasal treatment.Pulmonary consulted for history of smoking and abnormal CT suggestive of emphysema.PFT hopefully to be completed in the morning. STS 0.39%Patient was seen and examined by Dr. Crabtree. Further recommendations to followCoronary artery bypass graft surgery was discussed with the patient. The risk of the operation including , bleeding, infection, heart attack, stroke, pneumonia, renal failure, dialysis, prolonged ICU stay, car tracheostomy, need for long-term rehabilitation were all discussed with the patient. Patient's questions were answered and the patient agreed to proceed with surgery. 01/03/23POD 1CABG x 4 (BURDICK-LAD, SVG-Ramus, SVG-OM, SVG-PDA), ALAA, EVH (RGSV), Posterior pericartiotomyPatient hemodynamically stable post operatively, not requiring pressors or inotropesOn 3l nasal cannula, wean off as tolerated to keep O2 sats > 92%, nebsEncourage deep breathing and incentive spirometer useLabs and chest x-ray reviewed-stableNSR on cardiac cath technologist, no ectopy, continue amio, bb, asa, plavix, lipitorKeep both chest tubes and monitorIncrease po intake, Cardiac diet, nutritional supplementsGlycemic control on insulin drip- monitor blood sugarsBowel regimen protocolPT/OT- ambulateKeep patient in CVICU, continue supportive carePatient seen with Dr. Crabtree, discussed plan of care with multidisciplinary team. 01/04 Patient is alert and oriented, up in the recliner, complaining of back painLeft pleural chest tube discontinued to minimize pain and facilitate deep breathingMultimodal pain controlChest x-ray showed atelectasis. Wean O2 as tolerated, encourage I-S and ambulationPulmonary toilet, MucomystDiscontinue central lineNormal renal function, discontinue Siddiqui catheterGlycemic controlKeep in CVICU for close monitoringPatient seen and plan reviewed with the Bro multidisciplinary team 01/05 Overall doing better today, pain improvedDiscontinue chest tubeChest x-ray reviewed. Gentle diuresis with Lasix 20 mg IV onceEncourage I-S and mobilizationPT/OTTransfer to intermediate carePatient seen and plan reviewed with the Bro multidisciplinary team at 1218 at 1526 RPT #:[id number] OF REPORTPRProgress [id number]:16:00G.[id number] 9AVAvailable for patient [id number]:19:07 [facility] 2023-01-05 10:56:00 [id number] K dkn+lidRYiXJzfMjmh8ph3Aru7P2maWTT121588-4 01-05T10:56:00 [facility] ([facility])Cardiology Progress NoteREPORT#:[id number] REPORT STATUS: SignedDATE:01/05/23 TIME: 1056 PATIENT: SHEKHAR LOZADA UNIT #: [id number]#: [id number] [address] [birth year] AGE: 52 SEX: M ATTEND: Eric Crabtree [facility] AUTHOR: Juanis Blevins AGACNP * ALL edits or amendments must be made on the electronic/computer document * SubjectiveComments:c/o bilateral neck pain. Objective GeneralVS/I O:24 hour I O ending at 0700: 01/05 [...] O2 Flow FiO2 Mean Ox Delivery Rate 01/05 0900 91 18 138/93 111 92 01/05 0800 91 18 133/71 97 89 01/05 0744 92 Nasal 5 cannula 01/05 0737 93 22 141/83 97 91 01/05 0720 91 19 90 01/05 0715 90 20 91 01/05 0700 36.9 89 16 121/74 93 91 03/23 0653 90 12 120/71 88 90 03/23 0645 89 92 03/23 0630 85 16 131/100 113 92 03/23 0615 84 17 92 03/23 0600 86 19 137/75 100 93 03/23 0545 86 16 93 03/23 0530 83 15 129/74 96 92 03/23 0515 84 93 03/23 0500 83 13 121/64 84 92 03/23 0445 83 15 92 03/23 0430 83 121/66 87 93 03/23 0415 84 93 03/23 0400 86 125/77 95 94 03/23 0345 85 94 03/23 0330 88 14 120/65 87 93 03/23 0315 87 18 93 03/23 0300 87 132/67 91 92 03/23 0245 87 18 93 03/23 0230 87 16 138/77 97 93 03/23 0215 86 95 03/23 0200 85 143/66 93 94 03/23 0145 85 14 94 03/23 0130 86 21 135/67 94 93 03/23 0115 86 16 93 03/23 0100 84 22 143/70 100 93 03/23 0045 86 95 03/23 0031 86 15 135/72 96 94 03/23 0030 86 14 93 03/23 0027 36.8 03/23 0015 85 15 94 03/23 0000 85 13 113/84 95 94 03/ 2345 85 17 94 03/ 2330 86 14 112/71 87 94 03/22 2315 85 16 94 03/ 2300 85 14 121/70 89 93 03/22 2230 85 120/65 84 93 03/22 2200 85 126/62 84 92 03/ 2131 85 16 158/90 112 01/04 2100 86 147/67 97 93 03 2032 95 Nasal 4 cannula 01/04 2030 85 15 126/70 92 93 031999 36.9 031999 Nasal 4 cannula 01/05 2000 85 144/79 104 93 03 1930 86 19 137/78 97 94 03/ 1915 86 93 03 1912 90 160/85 114 93 03/22 1900 85 19 94 03/22 1845 83 18 93 03/22 1830 86 20 108/61 77 93 03/22 1800 85 11 117/58 80 92 03/22 1730 93 129/92 103 92 01/04 1700 [...] 120/66 85 94 01/04 1100 83 19 12063 85 93 PATIENT WEIGHT: Weight (lb): 246Weight (oz): 7.63Weight (kg): 111.800 Medications:Active Meds + DC'd Last 24 HrsIpratropium Bent (ATROVENT) 500 MCG RTQ2H PRN PRN INH Cyanocobalamin (Vitamin B-12 500 mcg tab) 500 MCG DAILY PO Ferrous Sulfate (FERROUS SULFATE) 325 MG DAILY PO Lidocaine (LIDODERM) 1 PATCH DAILY TOPICAL Furosemide (LASIX 20MG INJ) 20 MG ONCE ONE IV (DC) Acetylcysteine (MUCOMYST FOR RT) 200 MG RTQ8H NEB Bisacodyl (DULCOLAX) 10 MG ONCE PRN RECTAL Magnesium Hydroxide (MILK OF MAGNESIA) 30 ML ONCE PRN PO (DC) Atorvastatin Calcium (LIPITOR) 40 [...] (Senna Lax 8.6 MG TABLET) 17.2 MG BEDTIME PO Acetaminophen (TYLENOL) 650 MG Q4H PRN PRN PO Acetaminophen (TYLENOL) 650 MG Q4H PRN PRN RECTAL Calcium Chloride (CALCIUM CHLORIDE) 1 GM ASDIR PRN IV Dextrose/Water (DEXTROSE 10% IN WATER) 125 ML ASDIR PRN IV (CKD) Dextrose/Water (DEXTROSE 10% IN WATER) 250 ML ASDIR PRN IV (CKD) Epinephrine (ADRENALIN CHLORIDE) 4 MG ASDIR IV Dextrose/Water (DEXTROSE 5% WATER) 246 MLGlucagon (GLUCAGON) 1 MG ASDIR PRN IM Ipratropium Bent (ATROVENT) 500 MCG RTQ4H INH Magnesium Sulfate (MAGNESIUM SULFATE 4GM/SWFI 100ML) 100 ML ASDIR PRN IV Magnesium Sulfate (MAGNESIUM SULFATE 2GM/SWFI 50ML) 50 ML ASDIR PRN IV Magnesium Sulfate/Dextrose (MAGNESIUM SULFATE 1GM/D5W 100ML) 100 ML ASDIR PRN IV Morphine Sulfate (morphine SULFATE) 4 MG Q2H PRN PRN IV (DC) Nitroglycerin/Dextrose (NITROGLYCERIN 50,000MCG/D5W 250ML) 250 ML ASDIR IV Norepinephrine Bitartrate (NOREPINEPHRINE 8 MG/NS 250 ML) 250 ML TITRATE IV Ondansetron HCl (ZOFRAN) 4 MG Q6H PRN PRN IV Oxycodone HCl (ROXICODONE) 5 MG Q4H PRN PRN PO Oxycodone HCl (ROXICODONE) 10 MG Q4H PRN PRN PO Potassium Chloride (KCL 20MEQ/SWFI 100ML) 100 ML ASDIR PRN IV Sodium Bicarbonate (SODIUM BICARBONATE) 50 MEQ ASDIR PRN IV Sodium Chloride (SODIUM CHLORIDE 0.9%) 1,000 ML .Q20H IV (DC) Sodium Chloride (SODIUM CHLORIDE 0.9%) 250 ML Q24H IV (DC) Acetaminophen (TYLENOL EXTRA STRENGTH) 1,000 MG PREOP ONCALL PO (CKD) Gabapentin (NEURONTIN) 200 MG PREOP ONCALL PO (CKD) Lactated Ringer's (LACTATED RINGERS) 1,000 ML PREOP ONCALL IV Lidocaine HCl (LIDOCAINE HCL/PF) 2 ML PREOP ONCALL LOCAL Lidocaine HCl (LIDOCAINE HCL/PF) 2 ML PREOP ONCALL LOCAL Sodium Chloride (SODIUM CHLORIDE 0.9%) 500 ML PREOP ONCALL IV Sodium Chloride (SODIUM CHLORIDE) 5 ML ASDIR PRN IV Sodium Chloride (SODIUM CHLORIDE) 10 ML ASDIR PRN IV Sodium Chloride (SODIUM CHLORIDE 0.9%) 250 ML ASDIR PRN IV Sodium Chloride (SODIUM CHLORIDE) 20 ML ASDIR IV Physical ExamGeneral appearance: obese, alert, awake, orientedNeck: full range of motion, non-tender, supple/no meningismus, no bruit/NL carotids, no JVDCardiovascular: CV assessment: pedal edema, regular rate and rhythmRespiratory: decreased breath sounds, on oxygen, no distressAbdomen: non-tender, obeseGenitourinary: no urinary catheterLower extremity: LE assessment: edemaMusculoskeletal: normal inspectionNeuro/NEURO UROLOGIST: alert, oriented X 3, normal speechSkin: dryPsychiatry: normal affect, normal mood ResultsFindings/Data:Laboratory Tests 01/05 0355 Blood Gas Puncture Site [...] Positive O2 Delivery Device Cannula Laboratory Tests 01/055 4 1714 1420 1149Chemistry Sodium (134 - 147 mEq/L) 136 134 [...] L Total Alk Phosphatase (20 - 125 60IUnit/L) Total Protein (6.4 - 8.2 g/dL) 5.6 [...] (Auto) (14.0 - 32.0 %) 11.4 L Kane % (Auto) (4.8 - 9.0 %) 12.8 H Eos % (Auto) (0.3 - 3.7 %) 0.3 Baso % (Auto) (0.0 - 2.0 %) 0.2 Neut # (Auto) (2.0 - 7.6 x10 3/uL) 8.74 H Lymph # (Auto) (1.0 - 3.8 x10 3/uL) 1.33 Kane # (Auto) (0.1 - 0.8 x10 3/uL) 1.50 H Eos # (Auto) (0.0 - 0.2 x10 3/uL) 0.03 Baso # (Auto) (0.0 - 0.2 x10 3/uL) 0.02 Abs Immat Gran (auto) (0.00 - 0.03 x10 3/uL) 0.07 H Add Manual Diff NO Immature Gran % (0.0 - 2.0 %) 0.6 Nucleated RBC % (0 - 0 %) 0.0 Nucleated RBCs # (Man) (0.0 - 0.1 x10 3/uL) 0.00 Laboratory Tests 01/05 0235 Chemistry Magnesium (1.80 - 2.40 mg/dL) 2.25 Radiology data:Recent Impressions:RADIOLOGY - XR CHEST 1 V 01/05 0700 Report Impression - Status: SIGNED Entered: 01/05/2023 0817 IMPRESSION: 1. Mild worsening right basilar opacities. 2. Removal of left chest tube. Suspected small left pneumothorax involving 10% volume. 3. Removal of the right IJ central line. Impression By: TinaSWCassandra - Hilario Bentley M.D. Results: labs reviewed, vital signs reviewed, rhythm personally rev'dTelemetry Interpretation:Sinus rhythm Diagnosis, Assessment PlanPlan discussed with: patient, nurse Free Text DxA P NotesFree Text DxA P Notes:52-year-old male with medical history of hypertension, lifelong smoker,alcohol use who presents to ED at [facility] with back pain and chest pain. He was ruled in for non-STEMI. Taken to [facility] where he was found to have multivessel CAD with tight left main. Patient is transferred here for CABG evaluation. He is not having active chest pain. His main complaint is back pain and headache. His blood pressure is markedly elevated at the time of visit,208/111 mmHg. 1. NSTEMI/multivessel CAD with left main disease s/p 4V CABG and ALAAawake and alert, on nasal cannulaon DAP, BB, statinpostop care per CTSDiuresis per CTS 2. HypertensionBP stableContinue beta-alejandra 3. Tobacco and alcohol useCounseled cessationpulmo following 4. Chronic back pain.manage per primary team at 1741 at 5414 RPT #:[id number] OF REPORTPRProgress [id number]:56:00G.[id number] 9AVAvailable for patient [id number]:41:32 [facility] 2023-01-04 15:00:00 [id number] s [id number]LZ5131-8 5:00:00 [facility] CenterCritical [facility] Progress NoteREPORT#:[id number] REPORT STATUS: SignedDATE:01/04/23 TIME: 1500 PATIENT: SHEKHAR LOZADA UNIT #: [id number]#: [id number] [address] [birth year] AGE: 52 SEX: M ATTEND: Eric Crabtree [facility] AUTHOR: Rome Esparza MD * ALL edits or amendments must be made on the electronic/computer document * SubjectiveChief complaint:Chest painHPI:This is a 52-year-old male with medical history significant for hypertension, alcohol abuse and occasional smoking who initially presented to an outside hospital with complaints of back pain, and chest pains that started in the last 2 weeks. Patient underwent left heart catheterization by Dr. Felton at [facility] this showed multivessel CAD with a 90% LAD, 60-70% left main, 70-80% circumflex.The patient underwent an echocardiogram done at [facility] on 12/28/2022 that showed a normal left ventricular ejection fraction of 55-60%, moderate LVH, mildmitral regurgitation, grade 1 diastolic dysfunction.Patient was transferred to [facility] for evaluation for coronary bypass graft surgery.Earlier today the patient underwent CABG x 4 (BURDICK-LAD, SVG-Ramus, SVG-OM, SVG-PDA) and ALAA. His intraoperative course was without significant recurrence. He received 1200 of crystalloids and 300 cc of autologous blood and 720 cc of Cell Saver. He was brought to CVICU intubated and ventilated on epinephrine drip of 6 and norepinephrine drip of 8.The patient will be weaned to extubate per protocol. We also will wean his pressors for MAP of over 65. The patient was weaned and extubated per protocol without problems. We also were weaning down on his pressors. He received 500 cc of fluids to help with weaning down his pressors and a low CVP.Comments:Interval history- Patient pain was not controlled. After removing the pleural chest tube pain is better.Still requiring out of oxygen. Chest x-ray shows atelectasis. Is doing better incentive spirometry today. Objective GeneralVS/I OLast Documented: Result Date Time Pulse Ox 94 01/04 853 O2 Delivery Nasal cannula 01/04 853 O2 Flow Rate 4 01/04 853 B/P 149/61 01/05 232 B/P Mean 81 [...] scale Measurement Method PATIENT WEIGHT: Weight (lb): 249Weight (oz): 5.49Weight (kg): 113.100 Medications:Active Meds + DC'd Last 24 HrsIpratropium Bent (ATROVENT) 500 MCG RTQ2H PRN PRN INH Cyanocobalamin (Vitamin B-12 500 mcg tab) 500 MCG DAILY PO Ferrous Sulfate (FERROUS SULFATE) 325 MG DAILY PO Acetylcysteine (MUCOMYST FOR RT) 200 MG RTQ8H NEB Bisacodyl (DULCOLAX) 10 MG ONCE PRN RECTAL Magnesium Hydroxide (MILK OF MAGNESIA) 30 ML ONCE PRN PO Fentanyl Citrate (SUBLIMAZE) 50 MCG Q2H PRN PRN IV (DC) Atorvastatin Calcium (LIPITOR) 40 MG 2100 PO Melatonin (Melatonin) 6 MG ONCE ONE PO (DC) Methocarbamol (ROBAXIN) 500 MG ONCE ONE IV (DC) Sodium Chloride (SODIUM CHLORIDE 0.9%) 100 MLCalcium Gluconate/Sodium Chloride (Calcium Gluconate 1 GM/NS 50 mL) 50 ML ONCE ONE IV (DC) Insulin Human Regular (HUMAN INSULIN REG) 10 UNITS ONCE ONE IV (DC) Fentanyl Citrate (SUBLIMAZE) [...] (Senna Lax 8.6 MG TABLET) 17.2 MG BEDTIME PO Cefazolin Sodium (KEFZOL OR ANCEF) 6 GM ONCE ONE IV (DC) Sodium Chloride (SODIUM CHLORIDE 0.9%) 500 MLAcetaminophen (TYLENOL) 650 MG Q4H PRN PRN PO Acetaminophen (TYLENOL) 650 MG Q4H PRN PRN RECTAL Albumin Human (ALBUMINAR 25%) 25 GM ASDIR PRN IV (DC) Calcium Chloride (CALCIUM CHLORIDE) 1 GM ASDIR PRN IV Dextrose/Water (DEXTROSE 10% IN WATER) 125 ML ASDIR PRN IV (CKD) Dextrose/Water (DEXTROSE 10% IN WATER) 250 ML ASDIR PRN IV (CKD) Epinephrine (ADRENALIN CHLORIDE) 4 MG ASDIR IV Dextrose/Water (DEXTROSE 5% WATER) 246 MLGlucagon (GLUCAGON) 1 MG ASDIR PRN IM Ipratropium Bent (ATROVENT) 500 MCG RTQ4H INH Magnesium Sulfate (MAGNESIUM SULFATE 4GM/SWFI 100ML) 100 ML ASDIR PRN IV Magnesium Sulfate (MAGNESIUM SULFATE 2GM/SWFI 50ML) 50 ML ASDIR PRN IV Magnesium Sulfate/Dextrose (MAGNESIUM SULFATE 1GM/D5W 100ML) 100 ML ASDIR PRN IV Morphine Sulfate (morphine SULFATE) 4 MG Q2H PRN PRN IV Nitroglycerin/Dextrose (NITROGLYCERIN 50,000MCG/D5W 250ML) 250 ML ASDIR IV Norepinephrine Bitartrate (NOREPINEPHRINE 8 MG/NS 250 ML) 250 ML TITRATE IV Ondansetron HCl (ZOFRAN) 4 MG Q6H PRN PRN IV Oxycodone HCl (ROXICODONE) 5 MG Q4H PRN PRN PO Oxycodone HCl (ROXICODONE) 10 MG Q4H PRN PRN PO Potassium Chloride (KCL 20MEQ/SWFI 100ML) 100 ML ASDIR PRN IV Sodium Bicarbonate (SODIUM BICARBONATE) 50 MEQ ASDIR PRN IV Sodium Chloride (SODIUM CHLORIDE 0.9%) 1,000 ML .Q20H IV Sodium Chloride (SODIUM CHLORIDE 0.9%) 250 ML Q24H IV Acetaminophen (TYLENOL EXTRA STRENGTH) 1,000 MG PREOP ONCALL PO (CKD) Gabapentin (NEURONTIN) 200 MG PREOP ONCALL PO (CKD) Lactated Ringer's (LACTATED RINGERS) 1,000 ML PREOP ONCALL IV Lidocaine HCl (LIDOCAINE HCL/PF) 2 ML PREOP ONCALL LOCAL Lidocaine HCl (LIDOCAINE HCL/PF) 2 ML PREOP ONCALL LOCAL Sodium Chloride (SODIUM CHLORIDE 0.9%) 500 ML PREOP ONCALL IV Sodium Chloride (SODIUM CHLORIDE) 5 ML ASDIR PRN IV Sodium Chloride (SODIUM CHLORIDE) 10 ML ASDIR PRN IV Sodium Chloride (SODIUM CHLORIDE 0.9%) 250 ML ASDIR PRN IV Sodium Chloride (SODIUM CHLORIDE) 20 ML ASDIR IV Mupirocin (BACTROBAN 2% 22 GM OINTMENT) 1 APPLIC BID NASAL (DC) ResultsFindings/data:Laboratory Tests 01/04 01/03 0125 1603 Blood Gas [...] Calcium (1.12 - 1.32 MMOL/L) 1.09 L 1.09 L Lactic Acid (0.9 - 1.7 mmol/l) 1.1 1.6 Temperature (F) 101 97.8 O2 Delivery Device Cannula Cannula FiO2 (%) 32 Laboratory Tests 01/04 01/04 01/04 01/04 01/04 1420 1149 0753 0400 0125Chemistry Sodium (134 - 147 mEq/L) 134 136 [...] (Auto) (14.0 - 32.0 %) 7.9 L Kane % (Auto) (4.8 - 9.0 %) 11.6 H Eos % (Auto) (0.3 - 3.7 %) 0.0 L Baso % (Auto) (0.0 - 2.0 %) 0.1 Neut # (Auto) (2.0 - 7.6 x10 3/uL) 14.29 H Lymph # (Auto) (1.0 - 3.8 x10 3/uL) 1.42 Kane # (Auto) (0.1 - 0.8 x10 3/uL) 2.09 H Eos # (Auto) (0.0 - 0.2 x10 3/uL) 0.00 Baso # (Auto) (0.0 - 0.2 x10 3/uL) 0.02 Abs Immat Gran (auto) (0.00 - 0.03 x10 3/uL) 0.13 H Add Manual Diff NO Immature Gran % (0.0 - 2.0 %) 0.7 Nucleated RBC % (0 - 0 %) 0.0 Nucleated RBCs # (Man) (0.0 - 0.1 x10 3/uL) 0.00 Laboratory Tests 01/04/23 1420:[Embedded Image Not Available] 01/04/23 0400:[Embedded Image Not Available] 01/03/23 2000:[Embedded Image Not Available] Radiology dataRecent Impressions:RADIOLOGY - XR CHEST 1 V 01/04 0201 Report Impression - Status: SIGNED Entered: 01/04/2023 0206 IMPRESSION: Moderately diminished lung volumes with perihilar and medial basilar opacities favored to reflect atelectasis. Superimposed pneumonia or edema not excluded. Impression By: [email or web address] - Abraham Wallace M.D.RADIOLOGY - XR CHEST 1 V 01/04 0500 Report Impression - Status: SIGNED Entered: 01/04/2023 08 IMPRESSION: Grossly stable exam. Impression By: [email or web address] - Hilario Bentley M.D. Free Text Obj NotesFree Text Obj Notes:GEN: Patient is calm and in no distressNECK: Neck is supple, no JVD or thrush. No adenopathy.LUNGS: Coarse breath sounds, no wheezes, no rales or crackles. HEART: S1/S2 regular, no murmurs are heard. No S3 or rubs. ABDOMEN: Abdomen is soft, not tender. Bowel sounds are present.EXT: No edema. No clubbing nor cyanosis noted.SKIN: Warm, with no rashes.NEURO: AAOx3, no focal deficits Treatment Prophylaxis Treatment ProphylaxisDrain(s)/tube(s): Drain(s)/tube(s): chest, urinary catheter Diagnosis, Assessment PlanProblem list/A P: 1. Hypertension 2. Coronary artery disease due to calcified coronary lesion 3. Non-STEMI (non-ST elevated myocardial infarction) Free text A P:Acute pulmonary insufficiency following thoracic surgeryStatus post CABG x 4 (BURDICK-LAD, SVG-Ramus, SVG-OM, SVG-PDA) and ALAAAcute blood loss anemiaHypotensionCADAlcohol abuse Continue mechanical ventilation, vent settings reviewedTitrate FiO2 to keep saturation more than 90%.Spontaneous breathing trial as soon as possibleWean to extubateGood spontaneous breathing trialGood weaning parametersThe patient was extubated to nasal cannula and doing wellFollow ABGs and CXRsKeep off sedationJudicious pain controlNorepinephrine dripEpinephrine dripWean pressors to keep MAP more than 65Give 1 bottle of albumin 5%, 250 ccGive 250 cc normal saline bolusAspirin and PlavixAtorvastatinMetoprololFollow lactate levelMonitor chest tube outputMonitor urine output and kidney functionMonitor and replete electrolytesPerioperative antibioticsBowel regimenCardiac dietBG control with insulin gtt per protocolPT/OTVTE prophylaxis.Stress ulcer prophylaxis.Discussed with CV surgery and ICU teamCritical care time 90 minutes 01/04Neuro: Neurologically intact. Pain is better controlled. Continue multimodal pain control.Respiratory: On 4 L nasal cannula. ABG and chest x-ray reviewed. A lot of atelectasis. Encourage incentive spirometry. Continue nebs. Added Mucomyst.Cardiovascular: Remains hemodynamically stable. Sinus rhythm. Continue beta-alejandra and amiodarone.Renal: Patient's creatinine has improved to baseline 0.9. Good urine output. Discontinue Siddiqui. Continue to monitor the output. not drinking that much GI: tolerating diet, BR, abdomen is softID: Patient white count is elevated. Is having low-grade fevers. Continue to monitor now for now. Discontinue Siddiqui and central line.Hem: monitor Hgb and CTs output. Discontinue pleural chest tube.Endo: BG control with insulin sliding scaleMisc: PTOT consult, DVT and GI ppx with DAPT and PPI Total critical care time 40 minutes spent treating the patient excluding any procedures performed [facility] Advanced Care Plan 65 or OlderDiscussed with: patient at 1530 RPT #:[id number] OF REPORTPRProgress [id number]:00:[id number] for patient [id number]:30:31 [facility] 2023-01-04 12:07:00 [id number]/P5f tessie [id number]+[id number] 01-04T12:07:00 [facility] ([facility])Pulmonology Progress NoteREPORT#:[id number] REPORT STATUS: SignedDATE:01/04/23 TIME: 120 PATIENT: SHEKHAR LOZADA UNIT #: [id number]#: [id number] [address] [birth year] AGE: 52 SEX: M ATTEND: Eric Crabtree [facility] AUTHOR: Rod Hancock SECURITY AND COMPLIANCE PROJECT MANAGER * ALL edits or amendments must be made on the electronic/computer document * Rod Hancock 01/04/23 1207:SubjectiveChief complaint:He is on 3 liter NC.One chest tube on water seal.Breathing is stable.No N/v/d.BP and HR stable.Siddiqui in placed. Review of Systems ROSConstitutional:fatigue, generalized weakness. Allergy/Immun:Denies: anaphylaxis, itching, rhinorrhea. Respiratory:Reports: KISER (dyspnea on exertion), SOB. Denies: hemoptysis, pleurisy, pleuritic pain, pneumonia, productive cough (sputum). Cardiovascular:Reports: chest pain. Denies: KISER (dyspnea on exertion), orthopnea, palpitations. GI:Denies: constipation, GERD, hematochezia, melena. :Denies: flank pain, testicular swelling. Musculoskeletal:Denies: extremity pain, joint swelling, neck pain, thoracic pain. Heme:Denies: bleeding, bruising. Neuro:Denies: change in LOC, dizziness, focal weakness, gait problem, headache, spinning sensation, syncope. Objective GeneralVS/I O:Last Documented: Result Date Time Pulse Ox 94 01/04 0853 O2 Delivery Nasal cannula 01/04 0853 O2 Flow Rate 4 01/04 0853 B/P 149/61 03/22 0232 B/P Mean 81 01/05 232 Temp 38.4 [...] scale Measurement Method PATIENT WEIGHT: Weight (lb): 249Weight (oz): 5.49Weight (kg): 113.100 Medications:Active Meds + DC'd Last 24 HrsIpratropium Bent (ATROVENT) 500 MCG RTQ2H PRN PRN INH Cyanocobalamin (Vitamin B-12 500 mcg tab) 500 MCG DAILY PO Ferrous Sulfate (FERROUS SULFATE) 325 MG DAILY PO Acetylcysteine (MUCOMYST FOR RT) 200 MG RTQ8H NEB Bisacodyl (DULCOLAX) 10 MG ONCE PRN RECTAL Magnesium Hydroxide (MILK OF MAGNESIA) 30 ML ONCE PRN PO Fentanyl Citrate (SUBLIMAZE) 50 MCG Q2H PRN PRN IV (DC) Atorvastatin Calcium (LIPITOR) 40 MG 2100 PO Melatonin (Melatonin) 6 MG ONCE ONE PO (DC) Methocarbamol (ROBAXIN) 500 MG ONCE ONE IV (DC) Sodium Chloride (SODIUM CHLORIDE 0.9%) 100 MLCalcium Gluconate/Sodium Chloride (Calcium Gluconate 1 GM/NS 50 mL) 50 ML ONCE ONE IV (DC) Insulin Human Regular (HUMAN INSULIN REG) 10 UNITS ONCE ONE IV (DC) Fentanyl Citrate (SUBLIMAZE) [...] (Senna Lax 8.6 MG TABLET) 17.2 MG BEDTIME PO Cefazolin Sodium (KEFZOL OR ANCEF) 6 GM ONCE ONE IV (DC) Sodium Chloride (SODIUM CHLORIDE 0.9%) 500 MLAcetaminophen (TYLENOL) 650 MG Q4H PRN PRN PO Acetaminophen (TYLENOL) 650 MG Q4H PRN PRN RECTAL Albumin Human (ALBUMINAR 25%) 25 GM ASDIR PRN IV (DC) Calcium Chloride (CALCIUM CHLORIDE) 1 GM ASDIR PRN IV Dextrose/Water (DEXTROSE 10% IN WATER) 125 ML ASDIR PRN IV (CKD) Dextrose/Water (DEXTROSE 10% IN WATER) 250 ML ASDIR PRN IV (CKD) Epinephrine (ADRENALIN CHLORIDE) 4 MG ASDIR IV Dextrose/Water (DEXTROSE 5% WATER) 246 MLGlucagon (GLUCAGON) 1 MG ASDIR PRN IM Ipratropium Bent (ATROVENT) 500 MCG RTQ4H INH Magnesium Sulfate (MAGNESIUM SULFATE 4GM/SWFI 100ML) 100 ML ASDIR PRN IV Magnesium Sulfate (MAGNESIUM SULFATE 2GM/SWFI 50ML) 50 ML ASDIR PRN IV Magnesium Sulfate/Dextrose (MAGNESIUM SULFATE 1GM/D5W 100ML) 100 ML ASDIR PRN IV Morphine Sulfate (morphine SULFATE) 4 MG Q2H PRN PRN IV Nitroglycerin/Dextrose (NITROGLYCERIN 50,000MCG/D5W 250ML) 250 ML ASDIR IV Norepinephrine Bitartrate (NOREPINEPHRINE 8 MG/NS 250 ML) 250 ML TITRATE IV Ondansetron HCl (ZOFRAN) 4 MG Q6H PRN PRN IV Oxycodone HCl (ROXICODONE) 5 MG Q4H PRN PRN PO Oxycodone HCl (ROXICODONE) 10 MG Q4H PRN PRN PO Potassium Chloride (KCL 20MEQ/SWFI 100ML) 100 ML ASDIR PRN IV Sodium Bicarbonate (SODIUM BICARBONATE) 50 MEQ ASDIR PRN IV Sodium Chloride (SODIUM CHLORIDE 0.9%) 1,000 ML .Q20H IV Sodium Chloride (SODIUM CHLORIDE 0.9%) 250 ML Q24H IV Acetaminophen (TYLENOL EXTRA STRENGTH) 1,000 MG PREOP ONCALL PO (CKD) Gabapentin (NEURONTIN) 200 MG PREOP ONCALL PO (CKD) Lactated Ringer's (LACTATED RINGERS) 1,000 ML PREOP ONCALL IV Lidocaine HCl (LIDOCAINE HCL/PF) 2 ML PREOP ONCALL LOCAL Lidocaine HCl (LIDOCAINE HCL/PF) 2 ML PREOP ONCALL LOCAL Sodium Chloride (SODIUM CHLORIDE 0.9%) 500 ML PREOP ONCALL IV Sodium Chloride (SODIUM CHLORIDE) 5 ML ASDIR PRN IV Sodium Chloride (SODIUM CHLORIDE) 10 ML ASDIR PRN IV Sodium Chloride (SODIUM CHLORIDE 0.9%) 250 ML ASDIR PRN IV Sodium Chloride (SODIUM CHLORIDE) 20 ML ASDIR IV Mupirocin (BACTROBAN 2% 22 GM OINTMENT) 1 APPLIC BID NASAL (DC) Physical ExamGeneral appearance: alert, awake, orientedHead/eyes: atraumatic, normocephalic, PERRLACardiovascular: normal heart sounds, normal S1/S2, regular rate rhythmRespiratory/chest: aerating well, clear to auscultation, symmetric expansion, nodistressAbdomen: soft, non-tender, no CVA tendernessGenitourinary: no bladder distention, no flank painExtremities: no clubbing, no cyanosis, no edemaMusculoskeletal: no muscle spasmNeuro/NEURO UROLOGIST: alert, oriented X 3, CNII-XII intact ResultsFindings/Data:Laboratory Tests 01/04/23 0400:[Embedded Image Not Available] 01/03/23 2000:[Embedded Image Not Available] 01/03/23 1245:[Embedded Image Not Available]Laboratory Tests 01/04 01/03 0125 1603 Blood Gas [...] Calcium (1.12 - 1.32 MMOL/L) 1.09 L 1.09 L Lactic Acid (0.9 - 1.7 mmol/l) 1.1 1.6 Temperature (F) 101 97.8 O2 Delivery Device Cannula Cannula FiO2 (%) 32 Laboratory Tests 01/04 01/04 01/04 01/04 01/03 1149 0753 0407 0125 2000Chemistry Sodium (134 - 147 mEq/L) 136 135 [...] (Auto) (14.0 - 32.0 %) 7.9 L Kane % (Auto) (4.8 - 9.0 %) 11.6 H Eos % (Auto) (0.3 - 3.7 %) 0.0 L Baso % (Auto) (0.0 - 2.0 %) 0.1 Neut # (Auto) (2.0 - 7.6 x10 3/uL) 14.29 H Lymph # (Auto) (1.0 - 3.8 x10 3/uL) 1.42 Kane # (Auto) (0.1 - 0.8 x10 3/uL) 2.09 H Eos # (Auto) (0.0 - 0.2 x10 3/uL) 0.00 Baso # (Auto) (0.0 - 0.2 x10 3/uL) 0.02 Abs Immat Gran (auto) (0.00 - 0.03 x10 3/uL) 0.13 H Add Manual Diff NO Immature Gran % (0.0 - 2.0 %) 0.7 Nucleated RBC % (0 - 0 %) 0.0 Nucleated RBCs # (Man) (0.0 - 0.1 x10 3/uL) 0.00 Radiology data:Recent Impressions:RADIOLOGY - XR CHEST 1 V 01/04 0201 Report Impression - Status: SIGNED Entered: 01/04/2023 0206 IMPRESSION: Moderately diminished lung volumes with perihilar and medial basilar opacities favored to reflect atelectasis. Superimposed pneumonia or edema not excluded. Impression By: [email or web address] - Abraham Wallace M.D.RADIOLOGY - XR CHEST 1 V 01/04 0500 Report Impression - Status: SIGNED Entered: 01/04/2023 08 IMPRESSION: Grossly stable exam. Impression By: [email or web address] - Hilario Bentley M.D. Results: labs reviewed, vital signs reviewed, vital signs stable, x-ray personally reviewed, current med profile rev'd Treatment Prophylaxis Treatment ProphylaxisOxygen: room airDrain(s)/tube(s): Drain(s)/tube(s): chest, urinary catheter Diagnosis, Assessment PlanFree Text A P:Assessment and Plan: - Dyspnea due to Multivessel CAD and Emphysema.- Emphysema/COPD.- Multivessel CAD.- CP due to CAD.- HX of HTN.- Smoker. - S/p CABG x 4 (BURDICK-LAD, SVG-Ramus, SVG-OM, SVG-PDA), ALAA, EVH (RGSV) and Posterior pericartiotomy. Plan: CVICU.He is breathing stable.Chest tube on water seal.Siddiqui in placed.Will continue Monitor respiratory status, breathing tx, o2 support.Pain meds.Antiemetics.Follow labs and replace as needed.SCDs for DVT ppx.Continue Home meds.Monitor.Code status: full codePlan discussed with: patient, admitting physician, consultants, nurse Quality: [facility] Crit Care Advanced Care Plan 65 or OlderDiscussed with: patient TaesameerJessi 01/05/23 0035:Attestations Physician AttestationAgree w/findings plan:Patient seen and examined, I agree with the findings and plans as documented by Rod Hancock NP at 1210 at 0047 RPT #:[id number] OF REPORTPRProgress [id number]:[id number] for patient [id number]:10:38 [facility] 2023-01-04 10:57:00 [id number] m [id number] 01-04T10:57:00 [facility])Cardiothoracic Surgery ProgREPORT#:[id number] REPORT STATUS: SignedDATE:01/04/23 TIME: 1057 PATIENT: SHEKHAR LOZADA UNIT #: [id number]#: [id number] [address] [birth year] AGE: 52 SEX: M ATTEND: Eric Crabtree [facility] AUTHOR: Caro Bingham SECURITY AND COMPLIANCE PROJECT MANAGER * ALL edits or amendments must be made on the electronic/computer document * GeneralPost-op: day 2Status post:01/02/23CABG x 4 (BURDICK-LAD, SVG-Ramus, SVG-OM, SVG-PDA)ALAAEVH (RGSV)Posterior pericartiotomy SubjectiveChief complaint:Multi-vessel CAD-s/p CABGComments:Complaining of back pain Review of SystemsConstitutional:Denies: fever, malaise. Skin:Denies: rash. Eyes:Denies: redness, discharge, swelling. ENT:Denies: ear drainage, ear ringing. Respiratory:Denies: SOB, wheezing. Cardiovascular:Denies: chest pain, KISER (dyspnea on exertion), edema. GI:Denies: constipation, diarrhea. :Denies: hematuria, nocturia. Musculoskeletal:Denies: joint pain, joint swelling. Heme:Denies: bleeding, bruising. Endocrine:Denies: polydipsia, polyuria. Neuro:Denies: confusion, dizziness. All systems rev neg: except as marked Objective GeneralVS/I OLast Documented: Result Date Time Pulse Ox 95 [...] scale Measurement Method PATIENT WEIGHT: Weight (lb): 249Weight (oz): 5.49Weight (kg): 113.100 Physical ExamGeneral appearance: alert, oriented, pleasant, mental status normal, no respiratory distressWound/incision: Location:sternal Site condition: dressing clean dry, dressing intactHEENT: anicteric, mucosal membranes moistNeck: full range of motion, non-tenderCardiovascular: BP/pulses equal bilat., regular rate rhythmRespiratory: crackles, decreased breath sounds, aerating well, symmetric expansion, no distressAbdomen: soft, non-tenderExtremities: dry, moves allMusculoskeletal: full range of motion, painless range of motionNeuro/NEURO UROLOGIST: alert, oriented X 3, normal speech, no motor deficitsSkin: dry, intactPsychiatry: normal affect, normal mood Current MedicationsMedications:Active Meds + DC'd Last 24 HrsIpratropium Bent (ATROVENT) 500 MCG RTQ2H PRN PRN INH Cyanocobalamin (Vitamin B-12 500 mcg tab) 500 MCG DAILY PO Ferrous Sulfate (FERROUS SULFATE) 325 MG DAILY PO Acetylcysteine (MUCOMYST FOR RT) 200 MG RTQ8H NEB Bisacodyl (DULCOLAX) 10 MG ONCE PRN RECTAL Magnesium Hydroxide (MILK OF MAGNESIA) 30 ML ONCE PRN PO Fentanyl Citrate (SUBLIMAZE) 50 MCG Q2H PRN PRN IV (DC) Atorvastatin Calcium (LIPITOR) 40 MG 2100 PO Melatonin (Melatonin) 6 MG ONCE ONE PO (DC) Methocarbamol (ROBAXIN) 500 MG ONCE ONE IV (DC) Sodium Chloride (SODIUM CHLORIDE 0.9%) 100 MLCalcium Gluconate/Sodium Chloride (Calcium Gluconate 1 GM/NS 50 mL) 50 ML ONCE ONE IV (DC) Insulin Human Regular (HUMAN INSULIN REG) 10 UNITS ONCE ONE IV (DC) Fentanyl Citrate (SUBLIMAZE) [...] (Senna Lax 8.6 MG TABLET) 17.2 MG BEDTIME PO Cefazolin Sodium (KEFZOL OR ANCEF) 6 GM ONCE ONE IV (DC) Sodium Chloride (SODIUM CHLORIDE 0.9%) 500 MLAcetaminophen (TYLENOL) 650 MG Q4H PRN PRN PO Acetaminophen (TYLENOL) 650 MG Q4H PRN PRN RECTAL Albumin Human (ALBUMINAR 25%) 25 GM ASDIR PRN IV (DC) Calcium Chloride (CALCIUM CHLORIDE) 1 GM ASDIR PRN IV Dextrose/Water (DEXTROSE 10% IN WATER) 125 ML ASDIR PRN IV (CKD) Dextrose/Water (DEXTROSE 10% IN WATER) 250 ML ASDIR PRN IV (CKD) Epinephrine (ADRENALIN CHLORIDE) 4 MG ASDIR IV Dextrose/Water (DEXTROSE 5% WATER) 246 MLGlucagon (GLUCAGON) 1 MG ASDIR PRN IM Insulin Human Regular (HumuLIN R) 100 UNIT ASDIR IV (DC) Sodium Chloride (SODIUM CHLORIDE 0.9%) 99 MLIpratropium Bent (ATROVENT) 500 MCG RTQ4H INH Magnesium Sulfate (MAGNESIUM SULFATE 4GM/SWFI 100ML) 100 ML ASDIR PRN IV Magnesium Sulfate (MAGNESIUM SULFATE 2GM/SWFI 50ML) 50 ML ASDIR PRN IV Magnesium Sulfate/Dextrose (MAGNESIUM SULFATE 1GM/D5W 100ML) 100 ML ASDIR PRN IV Morphine Sulfate (morphine SULFATE) 4 MG Q2H PRN PRN IV Nitroglycerin/Dextrose (NITROGLYCERIN 50,000MCG/D5W 250ML) 250 ML ASDIR IV Norepinephrine Bitartrate (NOREPINEPHRINE 8 MG/NS 250 ML) 250 ML TITRATE IV Ondansetron HCl (ZOFRAN) 4 MG Q6H PRN PRN IV Oxycodone HCl (ROXICODONE) 5 MG Q4H PRN PRN PO Oxycodone HCl (ROXICODONE) 10 MG Q4H PRN PRN PO Potassium Chloride (KCL 20MEQ/SWFI 100ML) 100 ML ASDIR PRN IV Sodium Bicarbonate (SODIUM BICARBONATE) 50 MEQ ASDIR PRN IV Sodium Chloride (SODIUM CHLORIDE 0.9%) 1,000 ML .Q20H IV Sodium Chloride (SODIUM CHLORIDE 0.9%) 250 ML Q24H IV Acetaminophen (TYLENOL EXTRA STRENGTH) 1,000 MG PREOP ONCALL PO (CKD) Gabapentin (NEURONTIN) 200 MG PREOP ONCALL PO (CKD) Lactated Ringer's (LACTATED RINGERS) 1,000 ML PREOP ONCALL IV Lidocaine HCl (LIDOCAINE HCL/PF) 2 ML PREOP ONCALL LOCAL Lidocaine HCl (LIDOCAINE HCL/PF) 2 ML PREOP ONCALL LOCAL Sodium Chloride (SODIUM CHLORIDE 0.9%) 500 ML PREOP ONCALL IV Sodium Chloride (SODIUM CHLORIDE) 5 ML ASDIR PRN IV Sodium Chloride (SODIUM CHLORIDE) 10 ML ASDIR PRN IV Sodium Chloride (SODIUM CHLORIDE 0.9%) 250 ML ASDIR PRN IV Sodium Chloride (SODIUM CHLORIDE) 20 ML ASDIR IV Mupirocin (BACTROBAN 2% 22 GM OINTMENT) 1 APPLIC BID NASAL (DC) ResultsFindings/Data:Laboratory Tests 01/04 01/03 012 1603 Blood Gas Puncture Site Art Line [...] Calcium (1.12 - 1.32 MMOL/L) 1.09 L 1.09 L Lactic Acid (0.9 - 1.7 mmol/l) 1.1 1.6 Temperature (F) 101 97.8 O2 Delivery Device Cannula Cannula FiO2 (%) 32 Laboratory Tests 01/04 01/04 01/04 01/03 01/03 0753 0400 0121999 1603Chemistry Sodium (134 - 147 mEq/L) 136 135 [...] (Auto) (14.0 - 32.0 %) 7.9 L Kane % (Auto) (4.8 - 9.0 %) 11.6 H Eos % (Auto) (0.3 - 3.7 %) 0.0 L Baso % (Auto) (0.0 - 2.0 %) 0.1 Neut # (Auto) (2.0 - 7.6 x10 3/uL) 14.29 H Lymph # (Auto) (1.0 - 3.8 x10 3/uL) 1.42 Kane # (Auto) (0.1 - 0.8 x10 3/uL) 2.09 H Eos # (Auto) (0.0 - 0.2 x10 3/uL) 0.00 Baso # (Auto) (0.0 - 0.2 x10 3/uL) 0.02 Abs Immat Gran (auto) (0.00 - 0.03 x10 3/uL) 0.13 H Add Manual Diff NO Immature Gran % (0.0 - 2.0 %) 0.7 Nucleated RBC % (0 - 0 %) 0.0 Nucleated RBCs # (Man) (0.0 - 0.1 x10 3/uL) 0.00 Radiology data:Recent Impressions:RADIOLOGY - XR CHEST 1 V 01/04 0201 Report Impression - Status: SIGNED Entered: 01/04/2023 0206 IMPRESSION: Moderately diminished lung volumes with perihilar and medial basilar opacities favored to reflect atelectasis. Superimposed pneumonia or edema not excluded. Impression By: [email or web address] - Abraham Wallace M.D.RADIOLOGY - XR CHEST 1 V 01/04 0500 Report Impression - Status: SIGNED Entered: 01/04/2023 0826 IMPRESSION: Grossly stable exam. Impression By: [email or web address] - Hilario Bentley M.D. Quality: Trauma Gen Surg Advanced Care Plan 65 or OlderDiscussed with: patient Diagnosis, Assessment PlanHospital course to date:This is a 52-year-old gentleman with a past medical history of hypertension who initially presented to an outside hospital with complaints of back pain, and chest pains.He reports the back pain as mid upper back pain that occurred over the last couple of weeks. Usually pain is worse with changing positionThe patient reports he started to develop chest pains located midsternal for thepast 2 weeks. He denies any radiating symptoms.Describes the chest pains as a heaviness, squeezing sensation. Denies any syncope, palpitations. Denies any nausea vomiting or diaphoresis. Patient underwent left heart catheterization by Dr. Felton at [facility] this showed multivessel CAD with a 90% LAD, 60-70% left main, 70-80% circumflex. An echocardiogram was also done at [facility] on 12/28/2022. This showed a normal left ventricular ejection fraction of 55-60%, moderate LVH, mild mitral regurgitation, grade 1 diastolic dysfunction. The patient does admit to smoking 1-2 times per week. Does admit to alcohol 1-2times per week. Patient does have a strong family history of coronary artery disease in his father and his grandmother.Denies any surgical history, Review of the records from [facility] show the patient was admitted with a troponin peak of 483. Hemoglobin A1c was noted to be 5.5. Renal function appears normal. Patient was transferred to [facility] for evaluation for coronary bypass graft surgery.Hemoglobin A1c noted to be 5.5 at [facility] Assessment/plan1.coronary artery disease Begin work-up for coronary artery bypass graft with appropriate studies.2. Hypertension3. Chest pains Patient has been seen and examined by Dr. Crabtree. Work-up underway for coronary artery bypass graft surgery. Further recommendations to follow 12/31/22Patient resting comfortable denies pain.[id number]: 100% oxygen on room air.Cardiac: Remains sinus rhythmGI: Denies constipation diarrhea positive bowel movement.: Voiding well.Carotid ultrasound shows no significant carotid artery stenosisVein mapping completeMRSA positive in the nares, on appropriate Bactroban intranasal treatment.Likely consider coronary artery bypass surgery early next week.Patient was seen and examined by Dr. Crabtree. Further recommendations to follow 01/01Patient resting comfortable denies pain.[id number]: 100% oxygen on room air.Cardiac: Remains sinus rhythmGI: Denies constipation or diarrhea, positive bowel movement.: Voiding well.MRSA positive in the nares, on appropriate Bactroban intranasal treatment.Pulmonary consulted for history of smoking and abnormal CT suggestive of emphysema.PFT hopefully to be completed in the morning. STS 0.39%Patient was seen and examined by Dr. Crabtree. Further recommendations to followCoronary artery bypass graft surgery was discussed with the patient. The risk of the operation including , bleeding, infection, heart attack, stroke, pneumonia, renal failure, dialysis, prolonged ICU stay, car tracheostomy, need for long-term rehabilitation were all discussed with the patient. Patient's questions were answered and the patient agreed to proceed with surgery. 01/03/23POD 1CABG x 4 (BURDICK-LAD, SVG-Ramus, SVG-OM, SVG-PDA), ALAA, EVH (RGSV), Posterior pericartiotomyPatient hemodynamically stable post operatively, not requiring pressors or inotropesOn 3l nasal cannula, wean off as tolerated to keep O2 sats > 92%, nebsEncourage deep breathing and incentive spirometer useLabs and chest x-ray reviewed-stableNSR on cardiac cath technologist, no ectopy, continue amio, bb, asa, plavix, lipitorKeep both chest tubes and monitorIncrease po intake, Cardiac diet, nutritional supplementsGlycemic control on insulin drip- monitor blood sugarsBowel regimen protocolPT/OT- ambulateKeep patient in CVICU, continue supportive carePatient seen with Dr. Crabtree, discussed plan of care with multidisciplinary team. 01/04 Patient is alert and oriented, up in the recliner, complaining of back painLeft pleural chest tube discontinued to minimize pain and facilitate deep breathingMultimodal pain controlChest x-ray showed atelectasis. Wean O2 as tolerated, encourage I-S and ambulationPulmonary toilet, MucomystDiscontinue central lineNormal renal function, discontinue Siddiqui catheterGlycemic controlKeep in CVICU for close monitoringPatient seen and plan reviewed with the Bro multidisciplinary team at 1958 at 1556 RPT #:[id number] OF REPORTPRProgress [id number]:57:00G.[id number] 5AVAvailable for patient [id number]:59:30 [facility] 2023-01-04 09:39:00 [id number] v [id number] 09:39:00 [facility] ([facility])Cardiology Progress NoteREPORT#:[id number] REPORT STATUS: SignedDATE:01/04/23 TIME: 0939 PATIENT: SHEKHAR LOZADA UNIT #: [id number]#: [id number] [address] [birth year] AGE: 52 SEX: M ATTEND: Eric Crabtree MDADM AUTHOR: Milagros Arndt MD * ALL edits or amendments must be made on the electronic/computer document * Objective GeneralVS/I O:24 hour I O ending at 0700: 01/04 [...] O2 Flow FiO2 Mean Ox Delivery Rate 01/05 232 101.1 85 22 149/61 81 95 01/04 [...] 0115 101.3 86 26 142/60 80 92 03/22 0100 146/60 79 03/ 0100 101.3 84 23 131/64 90 92 / 0045 101.3 86 24 128/63 79 92 / 0031 140/64 82 03/ 0031 101.5 85 145/64 92 94 / 0030 101.5 85 26 142/65 82 94 01/04 0015 101.5 85 25 143/66 83 92 03/ 0001 133/62 79 03/ 0001 101.5 87 13 147/72 101 91 / 0000 101.5 86 20 137/63 80 91 03 2345 101.5 87 27 149/69 87 93 01/03 2330 130/63 79 03/ 2330 101.5 86 23 109/66 82 90 01/03 2315 101.5 86 23 122/61 76 92 01/03 2300 127/61 76 / 2300 101.3 87 22 105/60 76 91 01/03 2245 101.1 89 21 134/65 84 92 01/03 2231 101.1 87 20 148/62 81 92 / 2230 151/62 81 03/ 2230 101.1 87 22 121/58 81 92 01/03 2217 141/62 81 / 2217 101.3 86 22 113/60 80 91 / 2200 91 29 130/58 77 01/03 2145 100.9 86 23 138/68 86 92 01/03 2130 100.9 87 24 144/70 89 92 01/03 2115 100.9 86 25 139/68 86 91 01/03 2100 139/69 87 01/03 2100 100.9 85 24 114/69 87 92 01/035 100.8 84 23 139/69 87 92 01/03 2045 92 High flow 3 nasal cannula 01/03 2030 100.8 84 22 139/68 86 91 01/03 2015 100.6 85 25 135/67 85 90 01/04 2000 99.1 031999 Nasal 3 cannula 01/04 2000 140/63 83 01/04 2000 100.2 83 24 119/71 91 92 01/03 1957 100.4 84 24 137/63 82 92 03/21 1945 100.0 82 21 141/63 83 93 03/21 1930 100.0 81 20 138/62 81 92 03/21 1915 100.6 82 22 143/68 86 92 03/21 1900 139/67 83 03/21 1900 100.4 82 23 113/69 83 92 03/21 1621 99.9 78 15 125/65 80 93 03/21 1600 97.8 03/21 1600 99.9 79 17 103/66 79 93 03/21 1530 100.0 76 14 97/56 69 91 03/21 1500 100.2 79 19 97/53 69 93 03/21 1430 99.7 79 25 94/53 70 91 03/21 1421 99.9 80 21 130/61 77 92 03/21 1415 128/59 77 03/21 1415 99.9 81 22 103/55 71 92 03/21 1400 120/57 73 03/21 1400 100.2 81 22 105/57 78 91 03/21 1345 114/60 73 03/21 1345 100.0 79 22 97/52 68 92 03/21 1330 116/59 75 03/21 1330 99.9 78 26 113/58 74 93 03/21 1315 116/59 74 03/21 1315 100.0 78 20 107/63 80 93 03/21 1300 115/60 75 03/21 1300 100.2 78 23 105/59 77 93 03/21 1245 118/63 77 03/21 1245 100.6 79 25 101/56 72 92 03/21 1230 100.6 80 30 107/60 73 94 03/21 1215 114/68 80 03/21 1215 100.6 77 23 96/61 74 94 03/21 1201 104/62 74 03/21 1201 100.4 75 16 91/57 68 94 03/21 1200 97.8 03/21 1200 100.4 75 12 105/62 75 94 03/21 1130 93/58 68 03/21 1130 100.2 75 14 94/54 69 92 03/21 1100 100.4 77 19 96/58 72 93 03/21 1030 100.0 76 19 103/62 75 95 03/21 1000 100.0 76 16 103/52 66 93 PATIENT WEIGHT: Weight (lb): 249Weight (oz): 5.49Weight (kg): 113.100 Medications:Active Meds + DC'd Last 24 HrsIpratropium Bent (ATROVENT) 500 MCG RTQ2H PRN PRN INH Cyanocobalamin (Vitamin B-12 500 mcg tab) 500 MCG DAILY PO Ferrous Sulfate (FERROUS SULFATE) 325 MG DAILY PO Bisacodyl (DULCOLAX) 10 MG ONCE PRN RECTAL Magnesium Hydroxide (MILK OF MAGNESIA) 30 ML ONCE PRN PO Fentanyl Citrate (SUBLIMAZE) 50 MCG Q2H PRN PRN IV (DC) Atorvastatin Calcium (LIPITOR) 40 MG 2100 PO Melatonin (Melatonin) 6 MG ONCE ONE PO (DC) Methocarbamol (ROBAXIN) 500 MG ONCE ONE IV (DC) Sodium Chloride (SODIUM CHLORIDE 0.9%) 100 MLCalcium Gluconate/Sodium Chloride (Calcium Gluconate 1 GM/NS 50 mL) 50 ML ONCE ONE IV (DC) Insulin Human Regular (HUMAN INSULIN REG) 10 UNITS ONCE ONE IV (DC) Fentanyl Citrate (SUBLIMAZE) [...] (Senna Lax 8.6 MG TABLET) 17.2 MG BEDTIME PO Cefazolin Sodium (KEFZOL OR ANCEF) 6 GM ONCE ONE IV (DC) Sodium Chloride (SODIUM CHLORIDE 0.9%) 500 MLAcetaminophen (TYLENOL) 650 MG Q4H PRN PRN PO Acetaminophen (TYLENOL) 650 MG Q4H PRN PRN RECTAL Albumin Human (ALBUMINAR 25%) 25 GM ASDIR PRN IV (DC) Calcium Chloride (CALCIUM CHLORIDE) 1 GM ASDIR PRN IV Dextrose/Water (DEXTROSE 10% IN WATER) 125 ML ASDIR PRN IV (CKD) Dextrose/Water (DEXTROSE 10% IN WATER) 250 ML ASDIR PRN IV (CKD) Epinephrine (ADRENALIN CHLORIDE) 4 MG ASDIR IV Dextrose/Water (DEXTROSE 5% WATER) 246 MLGlucagon (GLUCAGON) 1 MG ASDIR PRN IM Insulin Human Regular (HumuLIN R) 100 UNIT ASDIR IV (DC) Sodium Chloride (SODIUM CHLORIDE 0.9%) 99 MLIpratropium Bent (ATROVENT) 500 MCG RTQ4H INH Magnesium Sulfate (MAGNESIUM SULFATE 4GM/SWFI 100ML) 100 ML ASDIR PRN IV Magnesium Sulfate (MAGNESIUM SULFATE 2GM/SWFI 50ML) 50 ML ASDIR PRN IV Magnesium Sulfate/Dextrose (MAGNESIUM SULFATE 1GM/D5W 100ML) 100 ML ASDIR PRN IV Morphine Sulfate (morphine SULFATE) 4 MG Q2H PRN PRN IV Nitroglycerin/Dextrose (NITROGLYCERIN 50,000MCG/D5W 250ML) 250 ML ASDIR IV Norepinephrine Bitartrate (NOREPINEPHRINE 8 MG/NS 250 ML) 250 ML TITRATE IV Ondansetron HCl (ZOFRAN) 4 MG Q6H PRN PRN IV Oxycodone HCl (ROXICODONE) 5 MG Q4H PRN PRN PO Oxycodone HCl (ROXICODONE) 10 MG Q4H PRN PRN PO Potassium Chloride (KCL 20MEQ/SWFI 100ML) 100 ML ASDIR PRN IV Sodium Bicarbonate (SODIUM BICARBONATE) 50 MEQ ASDIR PRN IV Sodium Chloride (SODIUM CHLORIDE 0.9%) 1,000 ML .Q20H IV Sodium Chloride (SODIUM CHLORIDE 0.9%) 250 ML Q24H IV Acetaminophen (TYLENOL EXTRA STRENGTH) 1,000 MG PREOP ONCALL PO (CKD) Gabapentin (NEURONTIN) 200 MG PREOP ONCALL PO (CKD) Lactated Ringer's (LACTATED RINGERS) 1,000 ML PREOP ONCALL IV Lidocaine HCl (LIDOCAINE HCL/PF) 2 ML PREOP ONCALL LOCAL Lidocaine HCl (LIDOCAINE HCL/PF) 2 ML PREOP ONCALL LOCAL Sodium Chloride (SODIUM CHLORIDE 0.9%) 500 ML PREOP ONCALL IV Sodium Chloride (SODIUM CHLORIDE) 5 ML ASDIR PRN IV Sodium Chloride (SODIUM CHLORIDE) 10 ML ASDIR PRN IV Sodium Chloride (SODIUM CHLORIDE 0.9%) 250 ML ASDIR PRN IV Sodium Chloride (SODIUM CHLORIDE) 20 ML ASDIR IV Mupirocin (BACTROBAN 2% 22 GM OINTMENT) 1 APPLIC BID NASAL (DC) Physical ExamGeneral appearance: alert, awakeNeck: full range of motion, non-tender, supple/no meningismus, no bruit/NL carotids, no JVDCardiovascular: CV assessment: pedal edema, regular rate and rhythmRespiratory: decreased breath sounds, on oxygen, no distressAbdomen: non-tender, obeseGenitourinary: urinary catheter, urineLower extremity: LE assessment: edemaMusculoskeletal: normal inspectionNeuro/NEURO UROLOGIST: alert, oriented X 3, normal speechSkin: dryPsychiatry: normal affect, normal mood ResultsFindings/Data:Laboratory Tests 01/04 01/03 0125 1603 Blood Gas [...] Calcium (1.12 - 1.32 MMOL/L) 1.09 L 1.09 L Lactic Acid (0.9 - 1.7 mmol/l) 1.1 1.6 Temperature (F) 101 97.8 O2 Delivery Device Cannula Cannula FiO2 (%) 32 Laboratory Tests 01/04 01/04 01/04 01/03 01/03 0753 0400 0125 1999 1603Chemistry Sodium (134 - 147 mEq/L) 136 135 [...] 39 Total Alk Phosphatase (20 - 125 63IUnit/L) Total Protein (6.4 - 8.2 g/dL) 6.2 [...] (Auto) (14.0 - 32.0 %) 7.9 L Kane % (Auto) (4.8 - 9.0 %) 11.6 H Eos % (Auto) (0.3 - 3.7 %) 0.0 L Baso % (Auto) (0.0 - 2.0 %) 0.1 Neut # (Auto) (2.0 - 7.6 x10 3/uL) 14.29 H Lymph # (Auto) (1.0 - 3.8 x10 3/uL) 1.42 Kane # (Auto) (0.1 - 0.8 x10 3/uL) 2.09 H Eos # (Auto) (0.0 - 0.2 x10 3/uL) 0.00 Baso # (Auto) (0.0 - 0.2 x10 3/uL) 0.02 Abs Immat Gran (auto) (0.00 - 0.03 x10 3/uL) 0.13 H Add Manual Diff NO Immature Gran % (0.0 - 2.0 %) 0.7 Nucleated RBC % (0 - 0 %) 0.0 Nucleated RBCs # (Man) (0.0 - 0.1 x10 3/uL) 0.00 Laboratory Tests 01/04 01/03 01/03 0400 2000 1245 Chemistry Magnesium (1.80 - 2.40 mg/dL) 2.43 H 2.55 H 2.51 H Radiology data:Recent Impressions:RADIOLOGY - XR CHEST 1 V 01/041 Report Impression - Status: SIGNED Entered: 01/04/2023 0206 IMPRESSION: Moderately diminished lung volumes with perihilar and medial basilar opacities favored to reflect atelectasis. Superimposed pneumonia or edema not excluded. Impression By: [email or web address] Ally Wallace M.D.RADIOLOGY - XR CHEST 1 V 01/04 0500 Report Impression - Status: SIGNED Entered: 01/04/2023 0826 IMPRESSION: Grossly stable exam. Impression By: [email or web address] - Hilario Bentley M.D. Diagnosis, Assessment Plan Free Text DxA P NotesFree Text DxA P Notes:52-year-old male with medical history of hypertension, lifelong smoker,alcohol use who presents to ED at [facility] with back pain and chest pain. He was ruled in for non-STEMI. Taken to [facility] where he was found to have multivessel CAD with tight left main. Patient is transferred here for CABG evaluation. He is not having active chest pain. His main complaint is back pain and headache. His blood pressure is markedly elevated at the time of visit,208/111 mmHg. 1. NSTEMI/multivessel CAD with left main disease s/p 4V CABG and ALAAextubated last night, off pressor, awake and alerton DAP, BB, statinpostop care per CTS 2. HypertensionBP soft post opmonitor off BP meds 3. Tobacco and alcohol useCounseled cessationpulmo following 4. Chronic back pain.manage per primary team at 0946 RPT #:[id number] OF REPORTPRProgress [id number]:39:00G.[id number] for patient [id number]:46:51 [facility] 2023-01-04 05:55:00 [id number]/Kasey ZapataI+KdRFhIlEg/AAYr2KBd8qj5aQeqETcH13059-2 05:55:882620-1859 [place] [id number] PATIENT NAME: SHEKHAR LOZADA ADMIT DATE: 12/30/22ACCOUNT NO: [id number] [place]OM NO: [facility] [place] AGE: 52 REPORT TYPE: eELECTROCARDIOGRAM REPORT SEX: M ADMITTING PHYSICIAN:Eric Crabtree MD ATTENDING PHYSICIAN:Eric Crabtree MD Order:[id number] Reason : POD#2 S/P CABGX4 Test Date/Time Stamp:MonJan 04 2023 05:55:50Blood Pressure : / mmHGVent. Rate : 088 BPM Atrial Rate : 088 BPM P-R Int : 148 ms QRS Dur : 128 ms QT Int : 380 ms P-R-T Axes : 046 007 013 degrees QTc Int : 459 ms Normal sinus rhythmRight bundle branch blockST elevation, consider inferolateral injury or acute infarct /pericarditisAbnormal ECGWhen compared with ECG of 03-JAN-2023 05:09,No changesConfirmed by MD STEFANY, MERT ([id number]) on 01/06/2023 5:21:06 PM Referred By: Kodi Crabtree Confirmed by:MERT MCCALL MD at 1721 PATIENT NAME: SHEKHAR LOZADA .[id number] for patient [id number]:21:39 [facility] 2023-01-03 15:52:00 [id number] q UL2anpVHP/VWTQTG7Im9/MIKjtGDy1+rjkR8446-3 01-03T15:52:00 [facility] ([facility]Critical Care Progress NoteREPORT#:[id number] REPORT STATUS: SignedDATE:01/03/23 TIME: 1552 PATIENT: SHEKHAR LOZADA UNIT #: [id number]#: [id number] [address] [birth year] AGE: 52 SEX: M ATTEND: Eric Crabtree MDADM AUTHOR: Rome Esparza MD * ALL edits or amendments must be made on the electronic/computer document * SubjectiveChief complaint:Chest painHPI:This is a 52-year-old male with medical history significant for hypertension, alcohol abuse and occasional smoking who initially presented to an outside hospital with complaints of back pain, and chest pains that started in the last 2 weeks. Patient underwent left heart catheterization by Dr. Felton at [facility] this showed multivessel CAD with a 90% LAD, 60-70% left main, 70-80% circumflex.The patient underwent an echocardiogram done at [facility] on 12/28/2022 that showed a normal left ventricular ejection fraction of 55-60%, moderate LVH, mildmitral regurgitation, grade 1 diastolic dysfunction.Patient was transferred to [facility] for evaluation for coronary bypass graft surgery.Earlier today the patient underwent CABG x 4 (BURDICK-LAD, SVG-Ramus, SVG-OM, SVG-PDA) and ALAA. His intraoperative course was without significant recurrence. He received 1200 of crystalloids and 300 cc of autologous blood and 720 cc of Cell Saver. He was brought to CVICU intubated and ventilated on epinephrine drip of 6 and norepinephrine drip of 8.The patient will be weaned to extubate per protocol. We also will wean his pressors for MAP of over 65. The patient was weaned and extubated per protocol without problems. We also were weaning down on his pressors. He received 500 cc of fluids to help with weaning down his pressors and a low CVP.Comments:Interval history- Patient was extubated in a timely fashion yesterday.Is complaining of a lot of pain. Objective GeneralVS/I OLast Documented: Result Date Time Pulse Ox 92 01/03 142 B/P 130/61 01/03 142 B/P Mean 77 01/03 142 Temp 37.7 01/03 142 Pulse 80 01/03 1421 Resp 21 01/03 142 O2 Delivery Nasal cannula 01/03 0832 O2 [...] scale Measurement Method PATIENT WEIGHT: Weight (lb): 244Weight (oz): 14.94Weight (kg): 110.677 Medications:Active Meds + DC'd Last 24 HrsIpratropium Bent (ATROVENT) 500 MCG RTQ2H PRN PRN INH Cyanocobalamin (Vitamin B-12 500 mcg tab) 500 MCG DAILY PO Ferrous Sulfate (FERROUS SULFATE) 325 MG DAILY PO Bisacodyl (DULCOLAX) 10 MG ONCE PRN RECTAL Magnesium Hydroxide (MILK OF MAGNESIA) 30 ML ONCE PRN PO Atorvastatin Calcium (LIPITOR) 40 MG [...] (Senna Lax 8.6 MG TABLET) 17.2 MG BEDTIME PO Albumin Human (ALBUMINAR 5% 12.5GM/250ML) 250 ML ONCE ONE IV (DC) Cefazolin Sodium (KEFZOL OR ANCEF) 6 GM ONCE ONE IV (DC) Sodium Chloride (SODIUM CHLORIDE 0.9%) 500 MLRocuronium Bent (ZEMURON) 0 .STK-MED ONE IV (DC) Lidocaine HCl (XYLOCAINE) 0 .STK-MED ONE .ROUTE (DC) Milrinone Lactate/Dextrose (MILRINONE 20MG/D5W 100ML) 100 ML .STK-MED ONE IV (DC) Rocuronium Bent (ZEMURON) 0 .STK-MED ONE IV (DC) Acetaminophen (TYLENOL) 650 MG Q4H PRN PRN PO Acetaminophen (TYLENOL) 650 MG Q4H PRN PRN RECTAL Albumin Human (ALBUMINAR 25%) 25 GM ASDIR PRN IV (DC) Calcium Chloride (CALCIUM CHLORIDE) 1 GM ASDIR PRN IV Chlorhexidine Gluconate (PERIDEX) 15 ML Q2H MM (DC) Dextrose/Water (DEXTROSE 10% IN WATER) 125 ML ASDIR PRN IV (CKD) Dextrose/Water (DEXTROSE 10% IN WATER) 250 ML ASDIR PRN IV (CKD) Epinephrine (ADRENALIN CHLORIDE) 4 MG ASDIR IV Dextrose/Water (DEXTROSE 5% WATER) 246 MLGlucagon (GLUCAGON) 1 MG ASDIR PRN IM Insulin Human Regular (HumuLIN R) 100 UNIT ASDIR IV (DC) Sodium Chloride (SODIUM CHLORIDE 0.9%) 99 MLIpratropium Bent (ATROVENT) 500 MCG RTQ4H INH Magnesium Sulfate (MAGNESIUM SULFATE 4GM/SWFI 100ML) 100 ML ASDIR PRN IV Magnesium Sulfate (MAGNESIUM SULFATE 2GM/SWFI 50ML) 50 ML ASDIR PRN IV Magnesium Sulfate/Dextrose (MAGNESIUM SULFATE 1GM/D5W 100ML) 100 ML ASDIR PRN IV Morphine Sulfate (morphine SULFATE) 4 MG Q2H PRN PRN IV Nitroglycerin/Dextrose (NITROGLYCERIN 50,000MCG/D5W 250ML) 250 ML ASDIR IV Norepinephrine Bitartrate (NOREPINEPHRINE 8 MG/NS 250 ML) 250 ML TITRATE IV Ondansetron HCl (ZOFRAN) 4 MG Q6H PRN PRN IV Oxycodone HCl (ROXICODONE) 5 MG Q4H PRN PRN PO Oxycodone HCl (ROXICODONE) 10 MG Q4H PRN PRN PO Potassium Chloride (KCL 20MEQ/SWFI 100ML) 100 ML ASDIR PRN IV Sodium Bicarbonate (SODIUM BICARBONATE) 50 MEQ ASDIR PRN IV Sodium Chloride (SODIUM CHLORIDE 0.9%) 1,000 ML .Q20H IV Sodium Chloride (SODIUM CHLORIDE 0.9%) 250 ML Q24H IV Acetaminophen (TYLENOL EXTRA STRENGTH) 1,000 MG PREOP ONCALL PO (CKD) Gabapentin (NEURONTIN) 200 MG PREOP ONCALL PO (CKD) Lactated Ringer's (LACTATED RINGERS) 1,000 ML PREOP ONCALL IV Lidocaine HCl (LIDOCAINE HCL/PF) 2 ML PREOP ONCALL LOCAL Lidocaine HCl (LIDOCAINE HCL/PF) 2 ML PREOP ONCALL LOCAL Sodium Chloride (SODIUM CHLORIDE 0.9%) 500 ML PREOP ONCALL IV Sodium Chloride (SODIUM CHLORIDE) 5 ML ASDIR PRN IV Sodium Chloride (SODIUM CHLORIDE) 10 ML ASDIR PRN IV Sodium Chloride (SODIUM CHLORIDE 0.9%) 250 ML ASDIR PRN IV Cefazolin Sodium (KEFZOL OR ANCEF) 2 GM PREOP ONCALL IV (DC) Vancomycin HCl (VANCOMYCIN HCL) 1,750 MG PREOP ONCALL IV (DC) Sodium Chloride (SODIUM CHLORIDE 0.9%) 500 MLVerapamil HCl (ISOPTIN) 16.6 MG .Q24H ONE IV (DC) Heparin Sodium (Porcine) (HEPARIN SODIUM) 1,660 UNIT Sodium Bicarbonate (SODIUM BICARBONATE) 0.7 ML Nitroglycerin/Dextrose (NITROGLYCERIN 50MG/D5W 250ML) 8.3 MG Lactated Ringer's (LACTATED RINGERS) 949.5 MLSodium Chloride (SODIUM CHLORIDE) 20 ML ASDIR IV Mupirocin (BACTROBAN 2% 22 GM OINTMENT) 1 APPLIC BID NASAL Free Text Obj NotesFree Text Obj Notes:GEN: Patient is calm and in no distressNECK: Neck is supple, no JVD or thrush. No adenopathy.LUNGS: Coarse breath sounds, no wheezes, no rales or crackles. HEART: S1/S2 regular, no murmurs are heard. No S3 or rubs. ABDOMEN: Abdomen is soft, not tender. Bowel sounds are present.EXT: No edema. No clubbing nor cyanosis noted.SKIN: Warm, with no rashes.NEURO: AAOx3, no focal deficits Treatment Prophylaxis Treatment ProphylaxisDrain(s)/tube(s): Drain(s)/tube(s): chest, urinary catheter Diagnosis, Assessment PlanProblem list/A P: 1. Hypertension 2. Coronary artery disease due to calcified coronary lesion 3. Non-STEMI (non-ST elevated myocardial infarction) Free text A P:Acute pulmonary insufficiency following thoracic surgeryStatus post CABG x 4 (BURDICK-LAD, SVG-Ramus, SVG-OM, SVG-PDA) and ALAAAcute blood loss anemiaHypotensionCADAlcohol abuse Continue mechanical ventilation, vent settings reviewedTitrate FiO2 to keep saturation more than 90%.Spontaneous breathing trial as soon as possibleWean to extubateGood spontaneous breathing trialGood weaning parametersThe patient was extubated to nasal cannula and doing wellFollow ABGs and CXRsKeep off sedationJudicious pain controlNorepinephrine dripEpinephrine dripWean pressors to keep MAP more than 65Give 1 bottle of albumin 5%, 250 ccGive 250 cc normal saline bolusAspirin and PlavixAtorvastatinMetoprololFollow lactate levelMonitor chest tube outputMonitor urine output and kidney functionMonitor and replete electrolytesPerioperative antibioticsBowel regimenCardiac dietBG control with insulin gtt per protocolPT/OTVTE prophylaxis.Stress ulcer prophylaxis.Discussed with CV surgery and ICU teamCritical care time 90 minutes 01/03Neuro: Tylenol and oxycodone alternating, multimodal pain controlRespiratory: On 2 L nasal cannula. ABG and CXR reviewed. Continue ipratropium nebs. Pulmonary following for COPD.Cardiovascular: Patient has been weaned of the pressors based. Received 750 of fluid bolus overnight. Continue beta-alejandra and amiodarone.Renal: strict I/Os,K slightly elevated, creatinine worsened from 1 to 1.5, but with good urine outputGiven insulin and dextrose. Repeat K after 8 hours.GI: tolerating diet, BR, abdomen is softID: trend WBC, cont periop ABx per protocolHem: monitor Hgb and CTs outputEndo: BG control with insulin sliding scaleMisc: PTOT consult, DVT and GI ppx with DAPT and PPI Total critical care time 45 minutes spent treating the patient excluding any procedures performed Quality: Gen [facility] Advanced Care Plan 65 or OlderDiscussed with: patient at 1706 RPT #:[id number] OF REPORTPRProgress [id number]:52:00G.[id number] 5AVAvailable for patient [id number]:07:09 [facility] 2023-01-03 11:59:00 [id number] e riCmFCO80csfsbchQ6amDk+gT3cE8iUbuVx8760-3 01-03T11:59:00 [facility] ([facility])Pulmonology Progress NoteREPORT#:[id number] REPORT STATUS: SignedDATE:01/03/23 TIME: 1159 PATIENT: SHEKHAR LOZADA UNIT #: [id number]#: [id number] [address] [birth year] AGE: 52 SEX: M ATTEND: Eric Crabtree [facility] AUTHOR: Rod Hancock [employer] PROJECT MANAGER * ALL edits or amendments must be made on the electronic/computer document * Rod Hancock 01/03/23 1159:SubjectiveChief complaint:S/p CABG x 4 (BURDICK-LAD, SVG-Ramus, SVG-OM, SVG-PDA), ALAA, EVH (RGSV) and Posterior pericartiotomy.He has a chest tube x2.He is c/o back pain and chest discomfort.Dull and constant.On nasal cannula.Siddiqui in placed. Review of Systems ROSConstitutional:fatigue, generalized weakness. Allergy/Immun:Denies: anaphylaxis, itching, rhinorrhea. Respiratory:Reports: KISER (dyspnea on exertion), SOB. Denies: hemoptysis, pleurisy, pleuritic pain, pneumonia, productive cough (sputum). Cardiovascular:Reports: chest pain. Denies: KISER (dyspnea on exertion), orthopnea, palpitations. GI:Denies: constipation, GERD, hematochezia, melena. :Denies: flank pain, testicular swelling. Musculoskeletal:Denies: extremity pain, joint swelling, neck pain, thoracic pain. Heme:Denies: bleeding, bruising. Neuro:Denies: change in LOC, dizziness, focal weakness, gait problem, headache, spinning sensation, syncope. Objective GeneralVS/I O:Last Documented: Result Date Time Pulse Ox 93 [...] scale Measurement Method PATIENT WEIGHT: Weight (lb): 244Weight (oz): 14.94Weight (kg): 111.100 Medications:Active Meds + DC'd Last 24 HrsIpratropium Bent (ATROVENT) 500 MCG RTQ2H PRN PRN INH Cyanocobalamin (Vitamin B-12 500 mcg tab) 500 MCG DAILY PO Ferrous Sulfate (FERROUS SULFATE) 325 MG DAILY PO Bisacodyl (DULCOLAX) 10 MG ONCE PRN RECTAL Magnesium Hydroxide (MILK OF MAGNESIA) 30 ML ONCE PRN PO Atorvastatin Calcium (LIPITOR) 40 MG [...] (Senna Lax 8.6 MG TABLET) 17.2 MG BEDTIME PO Albumin Human (ALBUMINAR 5% 12.5GM/250ML) 250 ML ONCE ONE IV (DC) Cefazolin Sodium (KEFZOL OR ANCEF) 6 GM ONCE ONE IV (CKD) Sodium Chloride (SODIUM CHLORIDE 0.9%) 500 MLRocuronium Bent (ZEMURON) 0 .STK-MED ONE IV (DC) Lidocaine HCl (XYLOCAINE) 0 .STK-MED ONE .ROUTE (DC) Milrinone Lactate/Dextrose (MILRINONE 20MG/D5W 100ML) 100 ML .STK-MED ONE IV (DC) Rocuronium Bent (ZEMURON) 0 .STK-MED ONE IV (DC) Acetaminophen (TYLENOL) 650 MG Q4H PRN PRN PO (r) Acetaminophen (TYLENOL) 650 MG Q4H PRN PRN RECTAL Albumin Human (ALBUMINAR 25%) 25 GM ASDIR PRN IV Calcium Chloride (CALCIUM CHLORIDE) 1 GM ASDIR PRN IV Chlorhexidine Gluconate (PERIDEX) 15 ML Q2H MM (DC) Dextrose/Water (DEXTROSE 10% IN WATER) 125 ML ASDIR PRN IV (CKD) Dextrose/Water (DEXTROSE 10% IN WATER) 250 ML ASDIR PRN IV (CKD) Epinephrine (ADRENALIN CHLORIDE) 4 MG ASDIR IV Dextrose/Water (DEXTROSE 5% WATER) 246 MLGlucagon (GLUCAGON) 1 MG ASDIR PRN IM Insulin Human Regular (HumuLIN R) 100 UNIT ASDIR IV (DC) Sodium Chloride (SODIUM CHLORIDE 0.9%) 99 MLIpratropium Bent (ATROVENT) 500 MCG RTQ4H INH Magnesium Sulfate (MAGNESIUM SULFATE 4GM/SWFI 100ML) 100 ML ASDIR PRN IV Magnesium Sulfate (MAGNESIUM SULFATE 2GM/SWFI 50ML) 50 ML ASDIR PRN IV Magnesium Sulfate/Dextrose (MAGNESIUM SULFATE 1GM/D5W 100ML) 100 ML ASDIR PRN IV Morphine Sulfate (morphine SULFATE) 4 MG Q2H PRN PRN IV Nitroglycerin/Dextrose (NITROGLYCERIN 50,000MCG/D5W 250ML) 250 ML ASDIR IV Norepinephrine Bitartrate (NOREPINEPHRINE 8 MG/NS 250 ML) 250 ML TITRATE IV Ondansetron HCl (ZOFRAN) 4 MG Q6H PRN PRN IV Oxycodone HCl (ROXICODONE) 5 MG Q4H PRN PRN PO Oxycodone HCl (ROXICODONE) 10 MG Q4H PRN PRN PO Potassium Chloride (KCL 20MEQ/SWFI 100ML) 100 ML ASDIR PRN IV Sodium Bicarbonate (SODIUM BICARBONATE) 50 MEQ ASDIR PRN IV Sodium Chloride (SODIUM CHLORIDE 0.9%) 1,000 ML .Q20H IV Sodium Chloride (SODIUM CHLORIDE 0.9%) 250 ML Q24H IV Succinylcholine Chloride (QUELICIN FLIPTOP) 0 .STK-MED ONE IV (DC) Fentanyl Citrate (SUBLIMAZE) 0 .STK-MED ONE IV (DC) Fentanyl Citrate (SUBLIMAZE) 0 .STK-MED ONE IV (DC) Midazolam HCl (VERSED) 0 .STK-MED ONE .ROUTE (DC) Propofol (DIPRIVAN 200MG/20ML INJECTION) 20 ML .STK-MED ONE IV (DC) Cefazolin Sodium (KEFZOL OR ANCEF) 0 .STK-MED ONE .ROUTE (DC) Heparin Sodium (HEPARIN SODIUM) 0 .STK-MED ONE .ROUTE (DC) Papaverine HCl (PAPAVERINE HCL) 0 .STK-MED ONE IV (DC) Heparin Sodium (HEPARIN SODIUM) 0 .STK-MED ONE .ROUTE (DC) Albumin Human (ALBUMINAR-25%) 100 ML .STK-MED ONE IV (DC) Mannitol (Mannitol 20%) 500 ML .STK-MED ONE IV (DC) Sodium Chloride (SODIUM CHLORIDE 0.9%) 100 ML .STK-MED ONE IV (DC) Lidocaine HCl (XYLOCAINE IV) 0 .STK-MED ONE IV (DC) Magnesium Sulfate (MAGNESIUM SULFATE) 0 .STK-MED ONE IV (DC) Phenylephrine HCl (ROBYN-SYNEPHRINE 10MG/ML AMP) 0 .STK-MED ONE .ROUTE (DC) Sodium Bicarbonate (SODIUM BICARBONATE) 0 .STK-MED ONE IV (DC) Acetaminophen (TYLENOL EXTRA STRENGTH) 1,000 MG PREOP ONCALL PO (CKD) Gabapentin (NEURONTIN) 200 MG PREOP ONCALL PO (CKD) Lactated Ringer's (LACTATED RINGERS) 1,000 ML PREOP ONCALL IV Lidocaine HCl (LIDOCAINE HCL/PF) 2 ML PREOP ONCALL LOCAL Lidocaine HCl (LIDOCAINE HCL/PF) 2 ML PREOP ONCALL LOCAL Sodium Chloride (SODIUM CHLORIDE 0.9%) 500 ML PREOP ONCALL IV Sodium Chloride (SODIUM CHLORIDE) 5 ML ASDIR PRN IV Sodium Chloride (SODIUM CHLORIDE) 10 ML ASDIR PRN IV Sodium Chloride (SODIUM CHLORIDE 0.9%) 250 ML ASDIR PRN IV Cefazolin Sodium (KEFZOL OR ANCEF) 2 GM PREOP ONCALL IV (DC) Vancomycin HCl (VANCOMYCIN HCL) 1,750 MG PREOP ONCALL IV (DC) Sodium Chloride (SODIUM CHLORIDE 0.9%) 500 MLVerapamil HCl (ISOPTIN) 16.6 MG .Q24H ONE IV (DC) Heparin Sodium (Porcine) (HEPARIN SODIUM) 1,660 UNIT Sodium Bicarbonate (SODIUM BICARBONATE) 0.7 ML Nitroglycerin/Dextrose (NITROGLYCERIN 50MG/D5W 250ML) 8.3 MG Lactated Ringer's (LACTATED RINGERS) 949.5 MLAmlodipine Besylate (NORVASC) 5 MG BID PO (DC) Sodium Chloride (SODIUM CHLORIDE) 20 ML ASDIR IV Albuterol/Ipratropium (DUONEB) 3 ML RTQ4H PRN PRN NEB (DC) Tramadol HCl (ULTRAM) 50 MG Q6H PRN PRN PO (DC) Carvedilol (COREG) 25 MG BID PO (DC) Aspirin (ASPIRIN) 81 MG DAILY PO (DC) Atorvastatin Calcium (LIPITOR) 40 MG 2100 PO (DC) Mupirocin (BACTROBAN 2% 22 GM OINTMENT) 1 APPLIC BID NASAL Heparin Sodium (HEPARIN 5000 UNITS/ML) 0 ASDIR PRN IV (DC) Heparin Sodium (Porcine) (HEPARIN 25,000 UNITS/ 1/2NS 500ML) 500 ML ASDIR IV (DC) Hydralazine HCl (APRESOLINE) 10 MG Q6H PRN PRN IV (DC) Acetaminophen (TYLENOL) 650 MG Q4H PRN PRN PO (DC) Hydrocodone Bitart/Acetaminophen (NORCO 5/325) 1 TAB Q6H PRN PRN PO (DC) Dietitian nutrition assessmentThe data set between the solid lines has been imported from the dietitian's assessment. BMI Calculated: 40.8Nutrition related diagnosis: Nutrition diagnosis details: Nutrition problem: Nutrition etiology: Nutrition signs and symptoms: Nutrition prescription: Dietitian name: Assessment completed: Physical ExamGeneral appearance: respiratory support, alert, awakeHead/eyes: atraumatic, normocephalic, PERRLACardiovascular: normal heart sounds, normal S1/S2, regular rate rhythmRespiratory/chest: aerating well, clear to auscultation, symmetric expansion, nodistressAbdomen: soft, non-tender, no CVA tendernessGenitourinary: no bladder distention, no flank painExtremities: no clubbing, no cyanosis, no edemaMusculoskeletal: no muscle spasmNeuro/NEURO UROLOGIST: alert, oriented X 3, CNII-XII intact ResultsFindings/Data:Laboratory Tests 01/03/23 0400:[Embedded Image Not Available] 01/02/23 192:[Embedded Image Not Available]Laboratory Tests 01/037Blood Gas Puncture Site Art Line Art Line Art Line Art Line O2 Saturation (90 - 100 %) 94.3 96.3 93.8 92.9 ABG pH (7.35 - 7.45) 7.337 L 7.314 L 7.290 *L 7.336 L ABG pCO2 (35.0 - 45 mmHg) 48.2 H 47.1 H 48.3 H 46.7 H ABG pO2 (80 - 100.0 mmHg) 80.7 93.3 78.8 L 71.2 L ABG PO2/FiO2 Ratio (mm/Hg) 224.16 233.25 197.00 142.40 ABG HCO3 (22.0 - 26.0 MMOL/L) 25.6 23.9 23.2 25.0 ABG Total CO2 27.1 25.3 24.7 26.4 ABG Base Excess (-4.0 - 4.0 0.0 -2.2 -3.4 -0.9MMOL/L) ABG Hematocrit (37.5 - 50.7 %) 40 39 42 39 ABG Hemoglobin (12.5 - 16.9 G/DL) 13.4 13.4 14.4 13.2 Michael Test N/A N/A N/A Sodium (134 - 147 mmol/L) 138 139 140 138 Potassium (3.4 - 5.0 mmol/L) 5.1 H 4.6 4.5 4.6 Chloride (100 - 108 mmol/L) 103 106 105 104 Ionized Calcium (1.12 - 1.32 1.16 1.21 1.30 1.29MMOL/L) Lactic Acid (0.9 - 1.7 mmol/l) 1.6 2.1 H Temperature (F) 100 99.1 98.6 98.4 O2 Delivery Device Cannula BiPAP Adult Vent Adult Vent Vent Mode AC Vent Rate (/MIN) 17 FiO2 (%) 36 40 40 50 Tidal Volume (ml) 600 PEEP (cmH2O) 5 5 5 Pressure Support (cmH2O) 10 01/02 01/02 01/02 01/02 01/02 1855 1743 1715 1644 1616Blood Gas O2 Saturation (90 - 100 %) 96.2 99.5 99.8 99.9 99.6 ABG pH (7.35 - 7.45) 7.358 7.389 7.386 7.342 L 7.394 ABG pCO2 (35.0 - 45 mmHg) 41.1 42.8 42.4 47.9 H 40.2 ABG pO2 (80 - 100.0 mmHg) 86.6 169.3 H 235.2 *H 371.5 *H 181.9 H ABG HCO3 (22.0 - 26.0 MMOL/L) 23.1 25.8 25.4 25.9 24.5 ABG Total CO2 24.4 27.1 26.7 27.4 25.8 ABG Base Excess (-4.0 - 4.0 -2.3 0.6 0.3 -0.2 -0.4MMOL/L) ABG Hematocrit (37.5 - 50.7 %) 35 L 34 L 34 L 34 L 42 ABG Hemoglobin (12.5 - 16.9 12.1 L 11.7 L 11.4 L 11.4 L 14.3G/DL) Sodium (134 - 147 mmol/L) 138 136 136 137 138 Potassium (3.4 - 5.0 mmol/L) 4.2 5.6 H 5.8 H 5.5 H 5.1 H Chloride (100 - 108 mmol/L) 106 102 102 100 105 Ionized Calcium (1.12 - 1.32 1.28 1.03 L 1.01 L 0.99 L 1.00 LMMOL/L) Lactic Acid (0.9 - 1.7 mmol/l) 2.1 H 1.7 1.5 0.7 L 0.8 L 01/02 1529 Blood Gas [...] Laboratory Tests 01/03 01/03 01/03 01/03 01/02 0763 0410 5690 1432 4427 Chemistry Sodium (134 - 147 mEq/L) 138 [...] (0.8 - 1.3 mg/dL) 1.0 0.8 1.1 1.0 Glomerular Filtr Rate (90 - 95) 90.0 Glucose (70 - 110 mg/dL) 164 H POC Glucose (mg/dL) (70 - 110 MG/DL) 158 H 163 H 152 H 167 H Calcium (8.0 - 10.5 mg/dL) 8.4 Magnesium (1.80 - 2.40 mg/dL) 2.90 H 01/02 1715 1644 1616 1529 Chemistry POC Creatinine (0.8 - 1.3 mg/dL) 1.1 1.0 0.9 0.9 0.8 POC Glucose (mg/dL) (70 - 110 MG/DL) 171 H 179 H 188 H 201 H 137 H Laboratory Tests 01/02 1744 1715 1645Coagulation INR (0.8 - 1.2) 1.2 PTT ([place]) (25.0 - 39.5 Seconds) 28.0 PT Patient/Control Mix (9.3 - 12.9 13.1 HSECONDS) Activated Coag Time (74 - 137 SEC) 113 474 H 540 H 642 H 01/02 01/02 1618 1531 [...] - 32.0 %) 5.6 L 10.2 L Kane % (Auto) (4.8 - 9.0 %) 5.1 6.3 Eos % (Auto) (0.3 - 3.7 %) 0.0 L 0.8 Baso % (Auto) (0.0 - 2.0 %) 0.1 0.3 Neut # (Auto) (2.0 - 7.6 x10 3/uL) 13.47 H 20.54 H Lymph # (Auto) (1.0 - 3.8 x10 3/uL) 0.86 L 2.62 Kane # (Auto) (0.1 - 0.8 x10 3/uL) 0.78 1.62 H Eos # (Auto) (0.0 - 0.2 x10 3/uL) 0.00 0.21 H Baso # (Auto) (0.0 - 0.2 x10 3/uL) 0.02 0.09 Abs Immat Gran (auto) (0.00 - 0.03 x10 3/uL) 0.11 H 0.73 H Add Manual Diff NO NO Immature Gran % (0.0 - 2.0 %) 0.7 2.8 H Nucleated RBC % (0 - 0 %) 0.0 0.0 Nucleated RBCs # (Man) (0.0 - 0.1 x10 3/uL) 0.00 0.00 Radiology data:Recent Impressions:ULTRASOUND - DUP UE ART UNI/LTD 01/02 1330 Report Impression - Status: SIGNED Entered: 01/02/2023 1604 IMPRESSION:1. Insufficient ulnar collateral circulation to the left hand (thumb) after radial artery compression.2. No soft tissue edema or fluid collection. Impression By: [email or web address] Ally Jaime M.D.RADIOLOGY - XR CHEST 1 V 01/02 192 Report Impression - Status: SIGNED Entered: 01/02/20232023 IMPRESSION: 1. Satisfactory position of lines and tubes. 2. Cardiomegaly with mild edema. Left basilar opacities, possibly atelectasis. Question small left pleural effusion. Impression By: [email or web address] Ally Bentley M.D.RADIOLOGY - XR CHEST 1 V 01/03 0725 Report Impression - Status: SIGNED Entered: 01/03/2023 0803 IMPRESSION: 1. Improved lung opacities. 2. Removal of the ET tube. Impression By: TinaSWCassandra Bentley M.D. Results: labs reviewed, vital signs reviewed, vital signs stable, x-ray personally reviewed, current med profile rev'd Treatment Prophylaxis Treatment ProphylaxisOxygen: room airDrain(s)/tube(s): Drain(s)/tube(s): chest, urinary catheter Diagnosis, Assessment PlanFree Text A P:Assessment and Plan: - Dyspnea due to Multivessel CAD and Emphysema.- Emphysema/COPD.- Multivessel CAD.- CP due to CAD.- HX of HTN.- Smoker. Plan: CVICU.S/p CABG x 4 (BURDICK-LAD, SVG-Ramus, SVG-OM, SVG-PDA), ALAA, EVH (RGSV) and Posterior pericartiotomy.He has a chest tube x2. Monitor Chest tube Outpt.Siddiqui in placed.Will continue Monitor respiratory status, breathing tx, o2 support.Pain meds.Antiemetics.Follow labs and replace as needed.SCDs for DVT ppx.Continue Home meds.Monitor.Code status: full codePlan discussed with: patient, admitting physician, consultants, nurse Quality: Gen Med Crit Care Advanced Care Plan 65 or OlderDiscussed with: patient Jessi Chavez 01/05/23 0035:Attestations Physician AttestationAgree w/findings plan:Patient seen and examined, I agree with the findings and plans as documented by Rod Hancock NP at 1201 at 0046 RPT #:[id number] OF REPORTPRProgress [id number] 9AVAvailable for patient [id number]:[id number]:02 [facility] 2023-01-03 10:23:00 [id number] / [id number] 01-03T10:23:00 [facility]Card[facility] ProgREPORT#:[id number] REPORT STATUS: SignedDATE:01/03/23 TIME: 1023 PATIENT: SHEKHAR LOZADA UNIT #: [id number]#: [id number] [address] [birth year] AGE: 52 SEX: M ATTEND: Eric Crabtree [facility] AUTHOR: Caro Bingham [employer]PL[employer] PROJECT MANAGER * ALL edits or amendments must be made on the electronic/computer document * GeneralPost-op: day 1Status post:01/02/23CABG x 4 (BURDICK-LAD, SVG-Ramus, SVG-OM, SVG-PDA)ALAAEVH (RGSV)Posterior pericartiotomy SubjectiveChief complaint:Multi-vessel CAD-s/p CABG Review of SystemsConstitutional:Denies: fatigue, fever. Skin:Denies: rash, swelling. Allergy/Immun:Denies: anaphylaxis, hives, itching. Eyes:Denies: redness, discharge, swelling. ENT:Denies: ear drainage, ear ringing. Respiratory:Denies: SOB, wheezing. Cardiovascular:Denies: chest pain, KISER (dyspnea on exertion), edema. GI:Denies: constipation, diarrhea. :Denies: hematuria, nocturia. Musculoskeletal:Denies: joint pain, joint swelling. Heme:Denies: bleeding, bruising. Endocrine:Denies: polydipsia, polyuria. Neuro:Denies: confusion, dizziness. All systems rev neg: except as marked Objective GeneralVS/I OLast Documented: Result Date Time B/P 93/49 01/03 701 B/P Mean 62 01/03 701 Pulse Ox 92 01/03 07 Temp 100.0 01/03 701 Pulse 80 01/03 07 Resp 16 01/03 701 FiO2 40 01/03 2032 O2 Delivery Ventilator 01/03 2000 24 hour [...] scale Measurement Method PATIENT WEIGHT: Weight (lb): 244Weight (oz): 14.94Weight (kg): 111.100 Dietitian Nutrition assessmentThe data set between the solid lines has been imported from the dietitian's assessment. BMI Calculated: 40.8Nutrition related diagnosis: Nutrition diagnosis details: Nutrition problem: Nutrition etiology: Nutrition signs and symptoms: Nutrition prescription: Dietitian name: Assessment completed: Physical ExamGeneral appearance: alert, awake, orientedWound/incision: Location:sternal Site condition: dressing clean dry, dressing intactHEENT: anicteric, mucosal membranes moistNeck: full range of motion, non-tenderCardiovascular: BP/pulses equal bilat., regular rate rhythmRespiratory: aerating well, clear to auscultationAbdomen: soft, non-tenderExtremities: dry, moves allMusculoskeletal: full range of motion, painless range of motionNeuro/NEURO UROLOGIST: alert, oriented X 3Skin: dry, intactPsychiatry: normal affect, normal mood Current MedicationsMedications:Active Meds + DC'd Last 24 HrsIpratropium Bent (ATROVENT) 500 MCG RTQ2H PRN PRN INH Cyanocobalamin (Vitamin B-12 500 mcg tab) 500 MCG DAILY PO Ferrous Sulfate (FERROUS SULFATE) 325 MG DAILY PO Bisacodyl (DULCOLAX) 10 MG ONCE PRN RECTAL Magnesium Hydroxide (MILK OF MAGNESIA) 30 ML ONCE PRN PO Atorvastatin Calcium (LIPITOR) 40 MG 2100 PO Insulin Human Lispro (HUMALOG) 0 AC HS SUBQ (PEND) Clopidogrel Bisulfate (Plavix) 75 MG DAILY PO [...] (Senna Lax 8.6 MG TABLET) 17.2 MG BEDTIME PO Albumin Human (ALBUMINAR 5% 12.5GM/250ML) 250 ML ONCE ONE IV (DC) Cefazolin Sodium (KEFZOL OR ANCEF) 6 GM ONCE ONE IV (CKD) Sodium Chloride (SODIUM CHLORIDE 0.9%) 500 MLRocuronium Bent (ZEMURON) 0 .STK-MED ONE IV (DC) Lidocaine HCl (XYLOCAINE) 0 .STK-MED ONE .ROUTE (DC) Milrinone Lactate/Dextrose (MILRINONE 20MG/D5W 100ML) 100 ML .STK-MED ONE IV (DC) Rocuronium Bent (ZEMURON) 0 .STK-MED ONE IV (DC) Acetaminophen (TYLENOL) 650 MG Q4H PRN PRN PO Acetaminophen (TYLENOL) 650 MG Q4H PRN PRN RECTAL Albumin Human (ALBUMINAR 25%) 25 GM ASDIR PRN IV Calcium Chloride (CALCIUM CHLORIDE) 1 GM ASDIR PRN IV Chlorhexidine Gluconate (PERIDEX) 15 ML Q2H MM (DC) Dextrose/Water (DEXTROSE 10% IN WATER) 125 ML ASDIR PRN IV (CKD) Dextrose/Water (DEXTROSE 10% IN WATER) 250 ML ASDIR PRN IV (CKD) Epinephrine (ADRENALIN CHLORIDE) 4 MG ASDIR IV Dextrose/Water (DEXTROSE 5% WATER) 246 MLGlucagon (GLUCAGON) 1 MG ASDIR PRN IM Insulin Human Regular (HumuLIN R) 100 UNIT ASDIR IV (CKD) Sodium Chloride (SODIUM CHLORIDE 0.9%) 99 MLIpratropium Bent (ATROVENT) 500 MCG RTQ4H INH Magnesium Sulfate (MAGNESIUM SULFATE 4GM/SWFI 100ML) 100 ML ASDIR PRN IV Magnesium Sulfate (MAGNESIUM SULFATE 2GM/SWFI 50ML) 50 ML ASDIR PRN IV Magnesium Sulfate/Dextrose (MAGNESIUM SULFATE 1GM/D5W 100ML) 100 ML ASDIR PRN IV Morphine Sulfate (morphine SULFATE) 4 MG Q2H PRN PRN IV Nitroglycerin/Dextrose (NITROGLYCERIN 50,000MCG/D5W 250ML) 250 ML ASDIR IV Norepinephrine Bitartrate (NOREPINEPHRINE 8 MG/NS 250 ML) 250 ML TITRATE IV Ondansetron HCl (ZOFRAN) 4 MG Q6H PRN PRN IV Oxycodone HCl (ROXICODONE) 5 MG Q4H PRN PRN PO Oxycodone HCl (ROXICODONE) 10 MG Q4H PRN PRN PO Potassium Chloride (KCL 20MEQ/SWFI 100ML) 100 ML ASDIR PRN IV Sodium Bicarbonate (SODIUM BICARBONATE) 50 MEQ ASDIR PRN IV Sodium Chloride (SODIUM CHLORIDE 0.9%) 1,000 ML .Q20H IV Sodium Chloride (SODIUM CHLORIDE 0.9%) 250 ML Q24H IV Succinylcholine Chloride (QUELICIN FLIPTOP) 0 .STK-MED ONE IV (DC) Fentanyl Citrate (SUBLIMAZE) 0 .STK-MED ONE IV (DC) Fentanyl Citrate (SUBLIMAZE) 0 .STK-MED ONE IV (DC) Midazolam HCl (VERSED) 0 .STK-MED ONE .ROUTE (DC) Propofol (DIPRIVAN 200MG/20ML INJECTION) 20 ML .STK-MED ONE IV (DC) Cefazolin Sodium (KEFZOL OR ANCEF) 0 .STK-MED ONE .ROUTE (DC) Heparin Sodium (HEPARIN SODIUM) 0 .STK-MED ONE .ROUTE (DC) Papaverine HCl (PAPAVERINE HCL) 0 .STK-MED ONE IV (DC) Heparin Sodium (HEPARIN SODIUM) 0 .STK-MED ONE .ROUTE (DC) Albumin Human (ALBUMINAR-25%) 100 ML .STK-MED ONE IV (DC) Mannitol (Mannitol 20%) 500 ML .STK-MED ONE IV (DC) Sodium Chloride (SODIUM CHLORIDE 0.9%) 100 ML .STK-MED ONE IV (DC) Lidocaine HCl (XYLOCAINE IV) 0 .STK-MED ONE IV (DC) Magnesium Sulfate (MAGNESIUM SULFATE) 0 .STK-MED ONE IV (DC) Phenylephrine HCl (ROBYN-SYNEPHRINE 10MG/ML AMP) 0 .STK-MED ONE .ROUTE (DC) Sodium Bicarbonate (SODIUM BICARBONATE) 0 .STK-MED ONE IV (DC) Acetaminophen (TYLENOL EXTRA STRENGTH) 1,000 MG PREOP ONCALL PO (CKD) Gabapentin (NEURONTIN) 200 MG PREOP ONCALL PO (CKD) Lactated Ringer's (LACTATED RINGERS) 1,000 ML PREOP ONCALL IV Lidocaine HCl (LIDOCAINE HCL/PF) 2 ML PREOP ONCALL LOCAL Lidocaine HCl (LIDOCAINE HCL/PF) 2 ML PREOP ONCALL LOCAL Sodium Chloride (SODIUM CHLORIDE 0.9%) 500 ML PREOP ONCALL IV Sodium Chloride (SODIUM CHLORIDE) 5 ML ASDIR PRN IV Sodium Chloride (SODIUM CHLORIDE) 10 ML ASDIR PRN IV Sodium Chloride (SODIUM CHLORIDE 0.9%) 250 ML ASDIR PRN IV Cefazolin Sodium (KEFZOL OR ANCEF) 2 GM PREOP ONCALL IV (DC) Vancomycin HCl (VANCOMYCIN HCL) 1,750 MG PREOP ONCALL IV (DC) Sodium Chloride (SODIUM CHLORIDE 0.9%) 500 MLVerapamil HCl (ISOPTIN) 16.6 MG .Q24H ONE IV (DC) Heparin Sodium (Porcine) (HEPARIN SODIUM) 1,660 UNIT Sodium Bicarbonate (SODIUM BICARBONATE) 0.7 ML Nitroglycerin/Dextrose (NITROGLYCERIN 50MG/D5W 250ML) 8.3 MG Lactated Ringer's (LACTATED RINGERS) 949.5 MLAmlodipine Besylate (NORVASC) 5 MG BID PO (DC) Sodium Chloride (SODIUM CHLORIDE) 20 ML ASDIR IV Magnesium Sulfate (MAGNESIUM SULFATE 2GM/SWFI 50ML) 50 ML DAILY PRN PRN IV (DC) Albuterol/Ipratropium (DUONEB) 3 ML RTQ4H PRN PRN NEB (DC) Tramadol HCl (ULTRAM) 50 MG Q6H PRN PRN PO (DC) Carvedilol (COREG) 25 MG BID PO (DC) Aspirin (ASPIRIN) 81 MG DAILY PO (DC) Atorvastatin Calcium (LIPITOR) 40 MG 2100 PO (DC) Mupirocin (BACTROBAN 2% 22 GM OINTMENT) 1 APPLIC BID NASAL Heparin Sodium (HEPARIN 5000 UNITS/ML) 0 ASDIR PRN IV (DC) Heparin Sodium (Porcine) (HEPARIN 25,000 UNITS/ 1/2NS 500ML) 500 ML ASDIR IV (DC) Hydralazine HCl (APRESOLINE) 10 MG Q6H PRN PRN IV (DC) Acetaminophen (TYLENOL) 650 MG Q4H PRN PRN PO (DC) Hydrocodone Bitart/Acetaminophen (NORCO 5/325) 1 TAB Q6H PRN PRN PO (DC) ResultsFindings/Data:Laboratory Tests 01/03 01/02 01/02 01/02 9063 2384 2009lood Gas Puncture Site Art Line Art Line Art Line Art Line O2 Saturation (90 - 100 %) 94.3 96.3 93.8 92.9 ABG pH (7.35 - 7.45) 7.337 L 7.314 L 7.290 *L 7.336 L ABG pCO2 (35.0 - 45 mmHg) 48.2 H 47.1 H 48.3 H 46.7 H ABG pO2 (80 - 100.0 mmHg) 80.7 93.3 78.8 L 71.2 L ABG PO2/FiO2 Ratio (mm/Hg) 224.16 233.25 197.00 142.40 ABG HCO3 (22.0 - 26.0 MMOL/L) 25.6 23.9 23.2 25.0 ABG Total CO2 27.1 25.3 24.7 26.4 ABG Base Excess (-4.0 - 4.0 0.0 -2.2 -3.4 -0.9MMOL/L) ABG Hematocrit (37.5 - 50.7 %) 40 39 42 39 ABG Hemoglobin (12.5 - 16.9 G/DL) 13.4 13.4 14.4 13.2 Michael Test N/A N/A N/A Sodium (134 - 147 mmol/L) 138 139 140 138 Potassium (3.4 - 5.0 mmol/L) 5.1 H 4.6 4.5 4.6 Chloride (100 - 108 mmol/L) 103 106 105 104 Ionized Calcium (1.12 - 1.32 1.16 1.21 1.30 1.29MMOL/L) Lactic Acid (0.9 - 1.7 mmol/l) 1.6 2.1 H Temperature (F) 100 99.1 98.6 98.4 O2 Delivery Device Cannula BiPAP Adult Vent Adult Vent Vent Mode AC Vent Rate (/MIN) 17 FiO2 (%) 36 40 40 50 Tidal Volume (ml) 600 PEEP (cmH2O) 5 5 5 Pressure Support (cmH2O) 10 01/02 01/02 01/02 01/02 01/02 1855 1743 1715 1644 1616Blood Gas O2 Saturation (90 - 100 %) 96.2 99.5 99.8 99.9 99.6 ABG pH (7.35 - 7.45) 7.358 7.389 7.386 7.342 L 7.394 ABG pCO2 (35.0 - 45 mmHg) 41.1 42.8 42.4 47.9 H 40.2 ABG pO2 (80 - 100.0 mmHg) 86.6 169.3 H 235.2 *H 371.5 *H 181.9 H ABG HCO3 (22.0 - 26.0 MMOL/L) 23.1 25.8 25.4 25.9 24.5 ABG Total CO2 24.4 27.1 26.7 27.4 25.8 ABG Base Excess (-4.0 - 4.0 -2.3 0.6 0.3 -0.2 -0.4MMOL/L) ABG Hematocrit (37.5 - 50.7 %) 35 L 34 L 34 L 34 L 42 ABG Hemoglobin (12.5 - 16.9 12.1 L 11.7 L 11.4 L 11.4 L 14.3G/DL) Sodium (134 - 147 mmol/L) 138 136 136 137 138 Potassium (3.4 - 5.0 mmol/L) 4.2 5.6 H 5.8 H 5.5 H 5.1 H Chloride (100 - 108 mmol/L) 106 102 102 100 105 Ionized Calcium (1.12 - 1.32 1.28 1.03 L 1.01 L 0.99 L 1.00 LMMOL/L) Lactic Acid (0.9 - 1.7 mmol/l) 2.1 H 1.7 1.5 0.7 L 0.8 L 01/02 1529 Blood Gas [...] 01/03 01/03 01/03 01/02 0725 0410 0400 2 5917 Chemistry Sodium (134 - 147 mEq/L) 138 [...] (0.8 - 1.3 mg/dL) 1.0 0.8 1.1 1.0 Glomerular Filtr Rate (90 - 95) 90.0 Glucose (70 - 110 mg/dL) 164 H POC Glucose (mg/dL) (70 - 110 MG/DL) 158 H 163 H 152 H 167 H Calcium (8.0 - 10.5 mg/dL) 8.4 Magnesium (1.80 - 2.40 mg/dL) 2.90 H 01/02 01/02 01/02 01/02 01/02 1743 1715 1644 1616 1529 Chemistry POC Creatinine (0.8 - 1.3 mg/dL) 1.1 1.0 0.9 0.9 0.8 POC Glucose (mg/dL) (70 - 110 MG/DL) 171 H 179 H 188 H 201 H 137 H Laboratory Tests 01/02 01/02 01/02 01/02 01/02 1926 1856 1744 1715 1645Coagulation INR (0.8 - 1.2) 1.2 PTT ([place]) (25.0 - 39.5 Seconds) 28.0 PT Patient/Control Mix (9.3 - 12.9 13.1 HSECONDS) Activated Coag Time (74 - 137 SEC) 113 474 H 540 H 642 H 01/02 01/02 1618 1531 [...] - 32.0 %) 5.6 L 10.2 L Kane % (Auto) (4.8 - 9.0 %) 5.1 6.3 Eos % (Auto) (0.3 - 3.7 %) 0.0 L 0.8 Baso % (Auto) (0.0 - 2.0 %) 0.1 0.3 Neut # (Auto) (2.0 - 7.6 x10 3/uL) 13.47 H 20.54 H Lymph # (Auto) (1.0 - 3.8 x10 3/uL) 0.86 L 2.62 Kane # (Auto) (0.1 - 0.8 x10 3/uL) 0.78 1.62 H Eos # (Auto) (0.0 - 0.2 x10 3/uL) 0.00 0.21 H Baso # (Auto) (0.0 - 0.2 x10 3/uL) 0.02 0.09 Abs Immat Gran (auto) (0.00 - 0.03 x10 3/uL) 0.11 H 0.73 H Add Manual Diff NO NO Immature Gran % (0.0 - 2.0 %) 0.7 2.8 H Nucleated RBC % (0 - 0 %) 0.0 0.0 Nucleated RBCs # (Man) (0.0 - 0.1 x10 3/uL) 0.00 0.00 Radiology data:Recent Impressions:ULTRASOUND - DUP UE ART UNI/LTD 01/02 1330 Report Impression - Status: SIGNED Entered: 01/02/2023 1604 IMPRESSION:1. Insufficient ulnar collateral circulation to the left hand (thumb) after radial artery compression.2. No soft tissue edema or fluid collection. Impression By: [email or web address] - Kentrell Jaime M.D.RADIOLOGY - XR CHEST 1 V 01/03 1928 Report Impression - Status: SIGNED Entered: 01/02/20232023 IMPRESSION: 1. Satisfactory position of lines and tubes. 2. Cardiomegaly with mild edema. Left basilar opacities, possibly atelectasis. Question small left pleural effusion. Impression By: [email or web address] - Hilario Bentley M.D.RADIOLOGY - XR CHEST 1 V 01/03 4425 Report Impression - Status: SIGNED Entered: 01/03/2023 0803 IMPRESSION: 1. Improved lung opacities. 2. Removal of the ET tube. Impression By: [email or web address] - Hilario Bentley M.D. Results: labs reviewed, vital signs stable, rythm personally rev'd, x-ray personally reviewed, current med profile rev'd Treatment Prophylaxis Treatment ProphylaxisOxygen: nasal cannulaCVC/PICC documentation:The data below has been imported from nursing documentation. Any exceptions have been noted below under Provider comments. CVC/PICC insertion date/time: CVC multi lumen triple Internal jugular Right Inserted 01/02/23 1548 Provider comments on imported nursing data: [] Drain(s)/tube(s): Drain(s)/tube(s): chest, urinary catheter Quality: Trauma Gen Surg Advanced Care Plan 65 or OlderDiscussed with: patient Diagnosis, Assessment PlanHospital course to date:This is a 52-year-old gentleman with a past medical history of hypertension who initially presented to an outside hospital with complaints of back pain, and chest pains.He reports the back pain as mid upper back pain that occurred over the last couple of weeks. Usually pain is worse with changing positionThe patient reports he started to develop chest pains located midsternal for thepast 2 weeks. He denies any radiating symptoms.Describes the chest pains as a heaviness, squeezing sensation. Denies any syncope, palpitations. Denies any nausea vomiting or diaphoresis. Patient underwent left heart catheterization by Dr. Felton at [facility] this showed multivessel CAD with a 90% LAD, 60-70% left main, 70-80% circumflex. An echocardiogram was also done at [facility] on 12/28/2022. This showed a normal left ventricular ejection fraction of 55-60%, moderate LVH, mild mitral regurgitation, grade 1 diastolic dysfunction. The patient does admit to smoking 1-2 times per week. Does admit to alcohol 1-2times per week. Patient does have a strong family history of coronary artery disease in his father and his grandmother.Denies any surgical history, Review of the records from [facility] show the patient was admitted with a troponin peak of 483. Hemoglobin A1c was noted to be 5.5. Renal function appears normal. Patient was transferred to [facility] for evaluation for coronary bypass graft surgery.Hemoglobin A1c noted to be 5.5 at [facility] Assessment/plan1.coronary artery disease Begin work-up for coronary artery bypass graft with appropriate studies.2. Hypertension3. Chest pains Patient has been seen and examined by Dr. Crabtree. Work-up underway for coronary artery bypass graft surgery. Further recommendations to follow 12/31/22Patient resting comfortable denies pain.ITYh8Gbjkxjdlbos: 100% oxygen on room air.Cardiac: Remains sinus rhythmGI: Denies constipation diarrhea positive bowel movement.: Voiding well.Carotid ultrasound shows no significant carotid artery stenosisVein mapping completeMRSA positive in the nares, on appropriate Bactroban intranasal treatment.Likely consider coronary artery bypass surgery early next week.Patient was seen and examined by Dr. Crabtree. Further recommendations to follow 01/01Patient resting comfortable denies pain.TCNk8Ohfjbeeosrb: 100% oxygen on room air.Cardiac: Remains sinus rhythmGI: Denies constipation or diarrhea, positive bowel movement.: Voiding well.MRSA positive in the nares, on appropriate Bactroban intranasal treatment.Pulmonary consulted for history of smoking and abnormal CT suggestive of emphysema.PFT hopefully to be completed in the morning. STS 0.39%Patient was seen and examined by Dr. Crabtree. Further recommendations to followCoronary artery bypass graft surgery was discussed with the patient. The risk of the operation including , bleeding, infection, heart attack, stroke, pneumonia, renal failure, dialysis, prolonged ICU stay, car tracheostomy, need for long-term rehabilitation were all discussed with the patient. Patient's questions were answered and the patient agreed to proceed with surgery. 01/03/23POD 1CABG x 4 (BURDICK-LAD, SVG-Ramus, SVG-OM, SVG-PDA), ALAA, EVH (RGSV), Posterior pericartiotomyPatient hemodynamically stable post operatively, not requiring pressors or inotropesOn 3l nasal cannula, wean off as tolerated to keep O2 sats > 92%, nebsEncourage deep breathing and incentive spirometer useLabs and chest x-ray reviewed-stableNSR on cardiac cath technologist, no ectopy, continue amio, bb, asa, plavix, lipitorKeep both chest tubes and monitorIncrease po intake, Cardiac diet, nutritional supplementsGlycemic control on insulin drip- monitor blood sugarsBowel regimen protocolPT/OT- ambulateKeep patient in CVICU, continue supportive carePatient seen with Dr. Crabtree, discussed plan of care with multidisciplinary team. at 2227 at 1556 RPT #:[id number] OF REPORTPRProgress [id number]:23:00G.[id number] 1AVAvailable for patient zmusREDTYZXQJBKYWF5502-41-78T91:28:02 [facility] 2023-01-03 09:35:00 [id number]+CEozpo+[id number]/oeciUn t [id number]+qleIh4bv0ebv7aHgk8JKttQaPYi+01-03T09:35:00 [facility] CenterCard[facility] Progress NoteREPORT#:[id number] REPORT STATUS: SignedDATE:01/03/23 TIME: 934 PATIENT: SHEKHAR LOZADA UNIT #: [id number]#: [id number] [address] [birth year] AGE: 52 SEX: M ATTEND: Eric Crabtree [facility] AUTHOR: Juanis Blevins * ALL edits or amendments must be made on the electronic/computer document * SubjectiveComments:OOB to chair, awake and alert, off pressor. Objective GeneralVS/I O:24 hour I O ending at 0700: 01/03 [...] O2 Flow FiO2 Mean Ox Delivery Rate 03/ 0701 93/49 62 03/21 0701 37.8 80 16 105/58 77 92 03/21 0700 37.8 80 17 94/50 63 92 03/21 0645 93/49 62 03/21 0645 37.8 80 15 93/56 70 92 03/21 0635 37.8 81 16 90/48 61 92 [...] 2224 37.6 77 18 114/62 77 97 01/02 2215 37.6 77 21 122/63 79 97 01/020 37.5 77 17 118/63 78 97 01/02 2145 37.4 76 21 121/65 80 96 01/02 2130 37.4 74 21 115/60 75 96 01/03 2124 37.3 75 124/63 79 96 01/02 2115 37.3 74 23 106/56 72 94 01/02 2100 37.3 71 25 116/60 75 98 01/02 2045 37.2 69 18 103/56 67 97 01/03 2032 68 97 40 01/02 2030 37.1 71 23 117/54 73 96 01/03 2024 37.1 68 16 130/66 82 96 01/02 2015 37.0 66 16 121/62 76 96 01/03 2000 36.9 40 01/03 2000 Ventilator 40 01/03 2000 133/66 84 01/03 2000 36.9 65 25 110/58 78 95 01/02 1945 36.9 62 125/62 80 94 01/02 193 36.9 62 15 115/63 79 93 01/02 1928 118/61 78 01/03 1928 36.9 63 116/70 84 93 01/02 1925 93 Ventilator 50 01/02 192 63 93 50 PATIENT WEIGHT: Weight (lb): 244Weight (oz): 14.94Weight (kg): 111.100 Medications:Active Meds + DC'd Last 24 HrsIpratropium Bent (ATROVENT) 500 MCG RTQ2H PRN PRN INH Cyanocobalamin (Vitamin B-12 500 mcg tab) 500 MCG DAILY PO Ferrous Sulfate (FERROUS SULFATE) 325 MG DAILY PO Bisacodyl (DULCOLAX) 10 MG ONCE PRN RECTAL Magnesium Hydroxide (MILK OF MAGNESIA) 30 ML ONCE PRN PO Atorvastatin Calcium (LIPITOR) 40 MG [...] (Senna Lax 8.6 MG TABLET) 17.2 MG BEDTIME PO Albumin Human (ALBUMINAR 5% 12.5GM/250ML) 250 ML ONCE ONE IV (DC) Cefazolin Sodium (KEFZOL OR ANCEF) 6 GM ONCE ONE IV (CKD) Sodium Chloride (SODIUM CHLORIDE 0.9%) 500 MLRocuronium Bent (ZEMURON) 0 .STK-MED ONE IV (DC) Lidocaine HCl (XYLOCAINE) 0 .STK-MED ONE .ROUTE (DC) Milrinone Lactate/Dextrose (MILRINONE 20MG/D5W 100ML) 100 ML .STK-MED ONE IV (DC) Rocuronium Bent (ZEMURON) 0 .STK-MED ONE IV (DC) Acetaminophen (TYLENOL) 650 MG Q4H PRN PRN PO Acetaminophen (TYLENOL) 650 MG Q4H PRN PRN RECTAL Albumin Human (ALBUMINAR 25%) 25 GM ASDIR PRN IV Calcium Chloride (CALCIUM CHLORIDE) 1 GM ASDIR PRN IV Chlorhexidine Gluconate (PERIDEX) 15 ML Q2H MM (DC) Dextrose/Water (DEXTROSE 10% IN WATER) 125 ML ASDIR PRN IV (CKD) Dextrose/Water (DEXTROSE 10% IN WATER) 250 ML ASDIR PRN IV (CKD) Epinephrine (ADRENALIN CHLORIDE) 4 MG ASDIR IV Dextrose/Water (DEXTROSE 5% WATER) 246 MLGlucagon (GLUCAGON) 1 MG ASDIR PRN IM Insulin Human Regular (HumuLIN R) 100 UNIT ASDIR IV (CKD) Sodium Chloride (SODIUM CHLORIDE 0.9%) 99 MLIpratropium Bent (ATROVENT) 500 MCG RTQ4H INH Magnesium Sulfate (MAGNESIUM SULFATE 4GM/SWFI 100ML) 100 ML ASDIR PRN IV Magnesium Sulfate (MAGNESIUM SULFATE 2GM/SWFI 50ML) 50 ML ASDIR PRN IV Magnesium Sulfate/Dextrose (MAGNESIUM SULFATE 1GM/D5W 100ML) 100 ML ASDIR PRN IV Morphine Sulfate (morphine SULFATE) 4 MG Q2H PRN PRN IV Nitroglycerin/Dextrose (NITROGLYCERIN 50,000MCG/D5W 250ML) 250 ML ASDIR IV Norepinephrine Bitartrate (NOREPINEPHRINE 8 MG/NS 250 ML) 250 ML TITRATE IV Ondansetron HCl (ZOFRAN) 4 MG Q6H PRN PRN IV Oxycodone HCl (ROXICODONE) 5 MG Q4H PRN PRN PO Oxycodone HCl (ROXICODONE) 10 MG Q4H PRN PRN PO Potassium Chloride (KCL 20MEQ/SWFI 100ML) 100 ML ASDIR PRN IV Sodium Bicarbonate (SODIUM BICARBONATE) 50 MEQ ASDIR PRN IV Sodium Chloride (SODIUM CHLORIDE 0.9%) 1,000 ML .Q20H IV Sodium Chloride (SODIUM CHLORIDE 0.9%) 250 ML Q24H IV Succinylcholine Chloride (QUELICIN FLIPTOP) 0 .STK-MED ONE IV (DC) Fentanyl Citrate (SUBLIMAZE) 0 .STK-MED ONE IV (DC) Fentanyl Citrate (SUBLIMAZE) 0 .STK-MED ONE IV (DC) Midazolam HCl (VERSED) 0 .STK-MED ONE .ROUTE (DC) Propofol (DIPRIVAN 200MG/20ML INJECTION) 20 ML .STK-MED ONE IV (DC) Cefazolin Sodium (KEFZOL OR ANCEF) 0 .STK-MED ONE .ROUTE (DC) Heparin Sodium (HEPARIN SODIUM) 0 .STK-MED ONE .ROUTE (DC) Papaverine HCl (PAPAVERINE HCL) 0 .STK-MED ONE IV (DC) Heparin Sodium (HEPARIN SODIUM) 0 .STK-MED ONE .ROUTE (DC) Albumin Human (ALBUMINAR-25%) 100 ML .STK-MED ONE IV (DC) Mannitol (Mannitol 20%) 500 ML .STK-MED ONE IV (DC) Sodium Chloride (SODIUM CHLORIDE 0.9%) 100 ML .STK-MED ONE IV (DC) Lidocaine HCl (XYLOCAINE IV) 0 .STK-MED ONE IV (DC) Magnesium Sulfate (MAGNESIUM SULFATE) 0 .STK-MED ONE IV (DC) Phenylephrine HCl (ROBYN-SYNEPHRINE 10MG/ML AMP) 0 .STK-MED ONE .ROUTE (DC) Sodium Bicarbonate (SODIUM BICARBONATE) 0 .STK-MED ONE IV (DC) Parenteral Electrolytes (PLASMA-LYTE A pH 7.4) 1,000 ML .STK-MED ONE IV (DC) Epinephrine HCl (EPINEPHrine 4 mg/D5W 250 mL) 250 ML .STK-MED ONE IV (DC) Heparin Sodium (HEPARIN SODIUM) 0 .STK-MED ONE .ROUTE (DC) Insulin Human Regular (HumuLIN R 100 UNITS/NS 100ML) 100 ML .STK-MED ONE IV (DC) Norepinephrine Bitartrate (NOREPINEPHRINE 8 MG/NS 250 ML) 250 ML .STK-MED ONE IV (DC) Aminocaproic Acid (AMICAR) 0 .STK-MED ONE IV (DC) Calcium Chloride (CALCIUM CHLORIDE) 0 .STK-MED ONE IV (DC) Nitroglycerin/Dextrose (NITROGLYCERIN 50,000MCG/D5W 250ML) 250 ML .STK-MED ONE IV (DC) Protamine Sulfate (PROTAMINE SULFATE) 0 .STK-MED ONE IV (DC) Ropivacaine (NAROPIN 0.5% 150 MG/30mL) 0 .STK-MED ONE .ROUTE (DC) Magnesium Sulfate (MAGNESIUM SULFATE) 0 .STK-MED ONE .ROUTE (DC) Dexamethasone Sodium Phosphate (DECADRON) 0 .STK-MED ONE .ROUTE (DC) Esmolol HCl (BREVIBLOC) 0 .STK-MED ONE IV (DC) Lidocaine HCl (XYLOCAINE) 0 .STK-MED ONE .ROUTE (DC) Ondansetron HCl (ZOFRAN) 0 .STK-MED ONE .ROUTE (DC) Rocuronium Bent (ZEMURON) 0 .STK-MED ONE IV (DC) Sodium Chloride (SODIUM CHLORIDE 0.9%) 100 ML .STK-MED ONE IV (DC) Acetaminophen (TYLENOL EXTRA STRENGTH) 1,000 MG PREOP ONCALL PO (CKD) Gabapentin (NEURONTIN) 200 MG PREOP ONCALL PO (CKD) Lactated Ringer's (LACTATED RINGERS) 1,000 ML PREOP ONCALL IV Lidocaine HCl (LIDOCAINE HCL/PF) 2 ML PREOP ONCALL LOCAL Lidocaine HCl (LIDOCAINE HCL/PF) 2 ML PREOP ONCALL LOCAL Sodium Chloride (SODIUM CHLORIDE 0.9%) 500 ML PREOP ONCALL IV Sodium Chloride (SODIUM CHLORIDE) 5 ML ASDIR PRN IV Sodium Chloride (SODIUM CHLORIDE) 10 ML ASDIR PRN IV Sodium Chloride (SODIUM CHLORIDE 0.9%) 250 ML ASDIR PRN IV Cefazolin Sodium (KEFZOL OR ANCEF) 2 GM PREOP ONCALL IV (DC) Vancomycin HCl (VANCOMYCIN HCL) 1,750 MG PREOP ONCALL IV (DC) Sodium Chloride (SODIUM CHLORIDE 0.9%) 500 MLVerapamil HCl (ISOPTIN) 16.6 MG .Q24H ONE IV (DC) Heparin Sodium (Porcine) (HEPARIN SODIUM) 1,660 UNIT Sodium Bicarbonate (SODIUM BICARBONATE) 0.7 ML Nitroglycerin/Dextrose (NITROGLYCERIN 50MG/D5W 250ML) 8.3 MG Lactated Ringer's (LACTATED RINGERS) 949.5 MLAmlodipine Besylate (NORVASC) 5 MG BID PO (DC) Sodium Chloride (SODIUM CHLORIDE) 20 ML ASDIR IV Magnesium Sulfate (MAGNESIUM SULFATE 2GM/SWFI 50ML) 50 ML DAILY PRN PRN IV (DC) Albuterol/Ipratropium (DUONEB) 3 ML RTQ4H PRN PRN NEB (DC) Tramadol HCl (ULTRAM) 50 MG Q6H PRN PRN PO (DC) Carvedilol (COREG) 25 MG BID PO (DC) Aspirin (ASPIRIN) 81 MG DAILY PO (DC) Atorvastatin Calcium (LIPITOR) 40 MG 2100 PO (DC) Mupirocin (BACTROBAN 2% 22 GM OINTMENT) 1 APPLIC BID NASAL Heparin Sodium (HEPARIN 5000 UNITS/ML) 0 ASDIR PRN IV (DC) Heparin Sodium (Porcine) (HEPARIN 25,000 UNITS/ 1/2NS 500ML) 500 ML ASDIR IV (DC) Hydralazine HCl (APRESOLINE) 10 MG Q6H PRN PRN IV (DC) Acetaminophen (TYLENOL) 650 MG Q4H PRN PRN PO (DC) Hydrocodone Bitart/Acetaminophen (NORCO 5/325) 1 TAB Q6H PRN PRN PO (DC) Status post:4V CABG and ALAA Physical ExamGeneral appearance: obese, alert, awake, oriented, no acute distressNeck: full range of motion, non-tender, supple/no meningismus, no bruit/NL carotids, no JVDCardiovascular: CV assessment: pedal edema, regular rate and rhythmRespiratory: decreased breath sounds, on oxygen, no distressAbdomen: non-tender, obeseGenitourinary: urinary catheter, urineLower extremity: LE assessment: edemaMusculoskeletal: normal inspectionNeuro/NEURO UROLOGIST: alert, oriented X 3, normal speechSkin: dryPsychiatry: normal affect, normal mood ResultsFindings/Data:Laboratory Tests 01/037Blood Gas Puncture Site Art Line Art Line Art Line Art Line O2 Saturation (90 - 100 %) 94.3 96.3 93.8 92.9 ABG pH (7.35 - 7.45) 7.337 L 7.314 L 7.290 *L 7.336 L ABG pCO2 (35.0 - 45 mmHg) 48.2 H 47.1 H 48.3 H 46.7 H ABG pO2 (80 - 100.0 mmHg) 80.7 93.3 78.8 L 71.2 L ABG PO2/FiO2 Ratio (mm/Hg) 224.16 233.25 197.00 142.40 ABG HCO3 (22.0 - 26.0 MMOL/L) 25.6 23.9 23.2 25.0 ABG Total CO2 27.1 25.3 24.7 26.4 ABG Base Excess (-4.0 - 4.0 0.0 -2.2 -3.4 -0.9MMOL/L) ABG Hematocrit (37.5 - 50.7 %) 40 39 42 39 ABG Hemoglobin (12.5 - 16.9 G/DL) 13.4 13.4 14.4 13.2 Michael Test N/A N/A N/A Sodium (134 - 147 mmol/L) 138 139 140 138 Potassium (3.4 - 5.0 mmol/L) 5.1 H 4.6 4.5 4.6 Chloride (100 - 108 mmol/L) 103 106 105 104 Ionized Calcium (1.12 - 1.32 1.16 1.21 1.30 1.29MMOL/L) Lactic Acid (0.9 - 1.7 mmol/l) 1.6 2.1 H Temperature (F) 100 99.1 98.6 98.4 O2 Delivery Device Cannula BiPAP Adult Vent Adult Vent Vent Mode AC Vent Rate (/MIN) 17 FiO2 (%) 36 40 40 50 Tidal Volume (ml) 600 PEEP (cmH2O) 5 5 5 Pressure Support (cmH2O) 10 01/02 01/02 01/02 01/02 01/02 1855 1743 1715 1644 1616Blood Gas O2 Saturation (90 - 100 %) 96.2 99.5 99.8 99.9 99.6 ABG pH (7.35 - 7.45) 7.358 7.389 7.386 7.342 L 7.394 ABG pCO2 (35.0 - 45 mmHg) 41.1 42.8 42.4 47.9 H 40.2 ABG pO2 (80 - 100.0 mmHg) 86.6 169.3 H 235.2 *H 371.5 *H 181.9 H ABG HCO3 (22.0 - 26.0 MMOL/L) 23.1 25.8 25.4 25.9 24.5 ABG Total CO2 24.4 27.1 26.7 27.4 25.8 ABG Base Excess (-4.0 - 4.0 -2.3 0.6 0.3 -0.2 -0.4MMOL/L) ABG Hematocrit (37.5 - 50.7 %) 35 L 34 L 34 L 34 L 42 ABG Hemoglobin (12.5 - 16.9 12.1 L 11.7 L 11.4 L 11.4 L 14.3G/DL) Sodium (134 - 147 mmol/L) 138 136 136 137 138 Potassium (3.4 - 5.0 mmol/L) 4.2 5.6 H 5.8 H 5.5 H 5.1 H Chloride (100 - 108 mmol/L) 106 102 102 100 105 Ionized Calcium (1.12 - 1.32 1.28 1.03 L 1.01 L 0.99 L 1.00 LMMOL/L) Lactic Acid (0.9 - 1.7 mmol/l) 2.1 H 1.7 1.5 0.7 L 0.8 L 01/02 1529 Blood Gas [...] (0.8 - 1.3 mg/dL) 1.0 0.8 1.1 1.0 Glomerular Filtr Rate (90 - 95) 90.0 Glucose (70 - 110 mg/dL) 164 H POC Glucose (mg/dL) (70 - 110 MG/DL) 158 H 163 H 152 H 167 H Calcium (8.0 - 10.5 mg/dL) 8.4 Magnesium (1.80 - 2.40 mg/dL) 2.90 H 01/02 01/02 01/02 01/02 01/02 1743 1715 1644 1616 1529 Chemistry POC Creatinine (0.8 - 1.3 mg/dL) 1.1 1.0 0.9 0.9 0.8 POC Glucose (mg/dL) (70 - 110 MG/DL) 171 H 179 H 188 H 201 H 137 H Laboratory Tests 01/02 01/02 01/02 01/02 01/02 1926 1856 1744 1715 1645Coagulation INR (0.8 - 1.2) 1.2 PTT (So) (25.0 - 39.5 Seconds) 28.0 PT Patient/Control Mix (9.3 - 12.9 13.1 HSECONDS) Activated Coag Time (74 - 137 SEC) 113 474 H 540 H 642 H 01/02 01/02 1618 1531 [...] - 32.0 %) 5.6 L 10.2 L Kane % (Auto) (4.8 - 9.0 %) 5.1 6.3 Eos % (Auto) (0.3 - 3.7 %) 0.0 L 0.8 Baso % (Auto) (0.0 - 2.0 %) 0.1 0.3 Neut # (Auto) (2.0 - 7.6 x10 3/uL) 13.47 H 20.54 H Lymph # (Auto) (1.0 - 3.8 x10 3/uL) 0.86 L 2.62 Kane # (Auto) (0.1 - 0.8 x10 3/uL) 0.78 1.62 H Eos # (Auto) (0.0 - 0.2 x10 3/uL) 0.00 0.21 H Baso # (Auto) (0.0 - 0.2 x10 3/uL) 0.02 0.09 Abs Immat Gran (auto) (0.00 - 0.03 x10 3/uL) 0.11 H 0.73 H Add Manual Diff NO NO Immature Gran % (0.0 - 2.0 %) 0.7 2.8 H Nucleated RBC % (0 - 0 %) 0.0 0.0 Nucleated RBCs # (Man) (0.0 - 0.1 x10 3/uL) 0.00 0.00 Laboratory Tests 01/03 01/02 0400 1926 Chemistry Magnesium (1.80 - 2.40 mg/dL) 2.33 2.90 H Radiology data:Recent Impressions:ULTRASOUND - DUP UE ART UNI/LTD 01/02 1330 Report Impression - Status: SIGNED Entered: 01/02/2023 6699 IMPRESSION:1. Insufficient ulnar collateral circulation to the left hand (thumb) after radial artery compression.2. No soft tissue edema or fluid collection. Impression By: [email or web address] - Kentrell Jaime M.D.RADIOLOGY - XR CHEST 1 V 01/03 1928 Report Impression - Status: SIGNED Entered: 01/02/20232023 IMPRESSION: 1. Satisfactory position of lines and tubes. 2. Cardiomegaly with mild edema. Left basilar opacities, possibly atelectasis. Question small left pleural effusion. Impression By: Olivia Bentley M.D.RADIOLOGY - XR CHEST 1 V 01/03 725 Report Impression - Status: SIGNED Entered: 01/03/2023802 IMPRESSION: 1. Improved lung opacities. 2. Removal of the ET tube. Impression By: Olivia Bentley M.D. Results: labs reviewed, vital signs reviewed, rhythm personally rev'dTelemetry Interpretation:sinus rhythm Diagnosis, Assessment PlanPlan discussed with: patient, nurse Free Text DxA P NotesFree Text DxA P Notes:52-year-old male with medical history of hypertension, lifelong smoker,alcohol use who presents to ED at [facility] with back pain and chest pain. He was ruled in for non-STEMI. Taken to [facility] where he was found to have multivessel CAD with tight left main. Patient is transferred here for CABG evaluation. He is not having active chest pain. His main complaint is back pain and headache. His blood pressure is markedly elevated at the time of visit,208/111 mmHg. 1. NSTEMI/multivessel CAD with left main disease s/p 4V CABG and ALAAextubated last night, off pressor, awake and alerton DAP, BB, statinpostop care per CTS 2. HypertensionBP soft post opmonitor off BP meds 3. Tobacco and alcohol useCounseled cessationpulmo following 4. Chronic back pain.manage per primary team at 1210 at 0985 RPT #:[id number] OF REPORTPRProgress [id number]:35:00G.[id number] 1AVAvailable for patient mgcqKNVQNTIDRBGZVD3825-13-29J74:10:45 [facility] 2023-01-03 05:09:00 [id number] V ByD41UK4ZWP4uIZGT7gHfLBg59MNWg6rW1F3461-7 05:09:819596-0631 [place] [address] PATIENT NAME: SHEKHAR LOZADA ADMIT DATE: 12/30/22ACCOUNT NO: [id number] [place]OM NO: [facility] [place] AGE: 52 REPORT TYPE: eELECTROCARDIOGRAM REPORT SEX: M ADMITTING PHYSICIAN:Eric Crabtree MD ATTENDING PHYSICIAN:Eric Crabtree MD Order:[id number] Reason : POD#1 S/P CABGX4 Test Date/Time Stamp:MonJan 03 2023 05:09:49Blood Pressure : / mmHGVent. Rate : 083 BPM Atrial Rate : 083 BPM P-R Int : 166 ms QRS Dur : 140 ms QT Int : 396 ms P-R-T Axes : 055 -02 040 degrees QTc Int : 465 ms Normal sinus rhythmRight bundle branch blockAbnormal ECGWhen compared with ECG of 02-JAN-2023 19:38,No changesConfirmed by MD MCCALL GERARD ([id number]) on 01/06/2023 5:20:12 PM Referred By: Kodi Crabtree Confirmed by:MERT MCCALL MD at 1720 PATIENT NAME: SHEKHAR LOZADA .[id number] [phone] for patient tlsxSIBZQFZATJVLJM4596-29-62K65:20:38 [facility] 2023-01-02 19:49:00 [id number] q V9YFbBiT6vdvMLXHBoYd3dDHowb3CndRdS83931-2 :49:00 [facility] ([facility])Critical Care Consult NoteREPORT#:[id number] REPORT STATUS: SignedDATE:01/02/23 TIME: 1948 PATIENT: SHEKHAR LOZADA UNIT #: [id number]#: [id number] [address] [birth year] AGE: 52 SEX: M ATTEND: Eric Crabtree [facility] AUTHOR: Malik Thomas MD * ALL edits or amendments must be made on the electronic/computer document * History of Present Illness HPIChief complaint:Chest painPCP:PCP: Eric Crabtree MD HPI:This is a 52-year-old male with medical history significant for hypertension, alcohol abuse and occasional smoking who initially presented to an outside hospital with complaints of back pain, and chest pains that started in the last 2 weeks. Patient underwent left heart catheterization by Dr. Felton at [facility] this showed multivessel CAD with a 90% LAD, 60-70% left main, 70-80% circumflex.The patient underwent an echocardiogram done at [facility] on 12/28/2022 that showed a normal left ventricular ejection fraction of 55-60%, moderate LVH, mildmitral regurgitation, grade 1 diastolic dysfunction.Patient was transferred to [facility] for evaluation for coronary bypass graft surgery.Earlier today the patient underwent CABG x 4 (BURDICK-LAD, SVG-Ramus, SVG-OM, SVG-PDA) and ALAA. His intraoperative course was without significant recurrence. He received 1200 of crystalloids and 300 cc of autologous blood and 720 cc of Cell Saver. He was brought to CVICU intubated and ventilated on epinephrine drip of 6 and norepinephrine drip of 8.The patient will be weaned to extubate per protocol. We also will wean his pressors for MAP of over 65. The patient was weaned and extubated per protocol without problems. We also were weaning down on his pressors. He received 500 cc of fluids to help with weaning down his pressors and a low CVP. History - Adult longitudinalPast medical history:Reports: Hypertension. Denies: Diabetes mellitus. 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 Objective Physical ExamVS/I O:Last Documented: Result Date Time Pulse Ox 97 [...] and BMI Weight (kg): 107.700 BMI: 39.5 Medications:Active Meds + DC'd Last 24 HrsIpratropium Bent (ATROVENT) 500 MCG RTQ2H PRN PRN INH Cyanocobalamin (Vitamin B-12 500 mcg tab) 500 MCG DAILY PO Ferrous Sulfate (FERROUS SULFATE) 325 MG DAILY PO Bisacodyl (DULCOLAX) 10 MG ONCE PRN RECTAL Magnesium Hydroxide (MILK OF MAGNESIA) 30 ML ONCE PRN PO Atorvastatin Calcium (LIPITOR) 40 MG [...] (Senna Lax 8.6 MG TABLET) 17.2 MG BEDTIME PO Cefazolin Sodium (KEFZOL OR ANCEF) 6 GM ONCE ONE IV (CKD) Sodium Chloride (SODIUM CHLORIDE 0.9%) 500 MLRocuronium Bent (ZEMURON) 0 .STK-MED ONE IV (DC) Lidocaine HCl (XYLOCAINE) 0 .STK-MED ONE .ROUTE (DC) Milrinone Lactate/Dextrose (MILRINONE 20MG/D5W 100ML) 100 ML .STK-MED ONE IV (DC) Rocuronium Bent (ZEMURON) 0 .STK-MED ONE IV (DC) Acetaminophen (TYLENOL) 650 MG Q4H PRN PRN PO Acetaminophen (TYLENOL) 650 MG Q4H PRN PRN RECTAL Albumin Human (ALBUMINAR 25%) 25 GM ASDIR PRN IV Calcium Chloride (CALCIUM CHLORIDE) 1 GM ASDIR PRN IV Chlorhexidine Gluconate (PERIDEX) 15 ML Q2H MM (CKD) Dextrose/Water (DEXTROSE 10% IN WATER) 125 ML ASDIR PRN IV (CKD) Dextrose/Water (DEXTROSE 10% IN WATER) 250 ML ASDIR PRN IV (CKD) Epinephrine (ADRENALIN CHLORIDE) 4 MG ASDIR IV Dextrose/Water (DEXTROSE 5% WATER) 246 MLGlucagon (GLUCAGON) 1 MG ASDIR PRN IM Insulin Human Regular (HumuLIN R) 100 UNIT ASDIR IV (CKD) Sodium Chloride (SODIUM CHLORIDE 0.9%) 99 MLIpratropium Bent (ATROVENT) 500 MCG RTQ4H INH Magnesium Sulfate (MAGNESIUM SULFATE 4GM/SWFI 100ML) 100 ML ASDIR PRN IV Magnesium Sulfate (MAGNESIUM SULFATE 2GM/SWFI 50ML) 50 ML ASDIR PRN IV Magnesium Sulfate/Dextrose (MAGNESIUM SULFATE 1GM/D5W 100ML) 100 ML ASDIR PRN IV Morphine Sulfate (morphine SULFATE) 4 MG Q2H PRN PRN IV Nitroglycerin/Dextrose (NITROGLYCERIN 50,000MCG/D5W 250ML) 250 ML ASDIR IV Norepinephrine Bitartrate (NOREPINEPHRINE 8 MG/NS 250 ML) 250 ML TITRATE IV Ondansetron HCl (ZOFRAN) 4 MG Q6H PRN PRN IV Oxycodone HCl (ROXICODONE) 5 MG Q4H PRN PRN PO Oxycodone HCl (ROXICODONE) 10 MG Q4H PRN PRN PO Potassium Chloride (KCL 20MEQ/SWFI 100ML) 100 ML ASDIR PRN IV Sodium Bicarbonate (SODIUM BICARBONATE) 50 MEQ ASDIR PRN IV Sodium Chloride (SODIUM CHLORIDE 0.9%) 1,000 ML .Q20H IV Sodium Chloride (SODIUM CHLORIDE 0.9%) 250 ML Q24H IV Succinylcholine Chloride (QUELICIN FLIPTOP) 0 .STK-MED ONE IV (DC) Fentanyl Citrate (SUBLIMAZE) 0 .STK-MED ONE IV (DC) Fentanyl Citrate (SUBLIMAZE) 0 .STK-MED ONE IV (DC) Midazolam HCl (VERSED) 0 .STK-MED ONE .ROUTE (DC) Propofol (DIPRIVAN 200MG/20ML INJECTION) 20 ML .STK-MED ONE IV (DC) Cefazolin Sodium (KEFZOL OR ANCEF) 0 .STK-MED ONE .ROUTE (DC) Heparin Sodium (HEPARIN SODIUM) 0 .STK-MED ONE .ROUTE (DC) Papaverine HCl (PAPAVERINE HCL) 0 .STK-MED ONE IV (DC) Heparin Sodium (HEPARIN SODIUM) 0 .STK-MED ONE .ROUTE (DC) Albumin Human (ALBUMINAR-25%) 100 ML .STK-MED ONE IV (DC) Mannitol (Mannitol 20%) 500 ML .STK-MED ONE IV (DC) Sodium Chloride (SODIUM CHLORIDE 0.9%) 100 ML .STK-MED ONE IV (DC) Lidocaine HCl (XYLOCAINE IV) 0 .STK-MED ONE IV (DC) Magnesium Sulfate (MAGNESIUM SULFATE) 0 .STK-MED ONE IV (DC) Phenylephrine HCl (ROBYN-SYNEPHRINE 10MG/ML AMP) 0 .STK-MED ONE .ROUTE (DC) Sodium Bicarbonate (SODIUM BICARBONATE) 0 .STK-MED ONE IV (DC) Parenteral Electrolytes (PLASMA-LYTE A pH 7.4) 1,000 ML .STK-MED ONE IV (DC) Epinephrine HCl (EPINEPHrine 4 mg/D5W 250 mL) 250 ML .STK-MED ONE IV (DC) Heparin Sodium (HEPARIN SODIUM) 0 .STK-MED ONE .ROUTE (DC) Insulin Human Regular (HumuLIN R 100 UNITS/NS 100ML) 100 ML .STK-MED ONE IV (DC) Norepinephrine Bitartrate (NOREPINEPHRINE 8 MG/NS 250 ML) 250 ML .STK-MED ONE IV (DC) Aminocaproic Acid (AMICAR) 0 .STK-MED ONE IV (DC) Calcium Chloride (CALCIUM CHLORIDE) 0 .STK-MED ONE IV (DC) Nitroglycerin/Dextrose (NITROGLYCERIN 50,000MCG/D5W 250ML) 250 ML .STK-MED ONE IV (DC) Protamine Sulfate (PROTAMINE SULFATE) 0 .STK-MED ONE IV (DC) Ropivacaine (NAROPIN 0.5% 150 MG/30mL) 0 .STK-MED ONE .ROUTE (DC) Magnesium Sulfate (MAGNESIUM SULFATE) 0 .STK-MED ONE .ROUTE (DC) Dexamethasone Sodium Phosphate (DECADRON) 0 .STK-MED ONE .ROUTE (DC) Esmolol HCl (BREVIBLOC) 0 .STK-MED ONE IV (DC) Lidocaine HCl (XYLOCAINE) 0 .STK-MED ONE .ROUTE (DC) Ondansetron HCl (ZOFRAN) 0 .STK-MED ONE .ROUTE (DC) Rocuronium Bent (ZEMURON) 0 .STK-MED ONE IV (DC) Sodium Chloride (SODIUM CHLORIDE 0.9%) 100 ML .STK-MED ONE IV (DC) Acetaminophen (TYLENOL EXTRA STRENGTH) 1,000 MG PREOP ONCALL PO (CKD) Gabapentin (NEURONTIN) 200 MG PREOP ONCALL PO (CKD) Lactated Ringer's (LACTATED RINGERS) 1,000 ML PREOP ONCALL IV Lidocaine HCl (LIDOCAINE HCL/PF) 2 ML PREOP ONCALL LOCAL Lidocaine HCl (LIDOCAINE HCL/PF) 2 ML PREOP ONCALL LOCAL Sodium Chloride (SODIUM CHLORIDE 0.9%) 500 ML PREOP ONCALL IV Sodium Chloride (SODIUM CHLORIDE) 5 ML ASDIR PRN IV Sodium Chloride (SODIUM CHLORIDE) 10 ML ASDIR PRN IV Sodium Chloride (SODIUM CHLORIDE 0.9%) 250 ML ASDIR PRN IV Cefazolin Sodium (KEFZOL OR ANCEF) 2 GM PREOP ONCALL IV (CKD) Metoprolol Tartrate (LOPRESSOR) 6.25 MG ONCE ONE PO (DC) Vancomycin HCl (VANCOMYCIN HCL) 1,750 MG PREOP ONCALL IV (CKD) Sodium Chloride (SODIUM CHLORIDE 0.9%) 500 MLVerapamil HCl (ISOPTIN) 16.6 MG .Q24H ONE IV (CKD) Heparin Sodium (Porcine) (HEPARIN SODIUM) 1,660 UNIT Sodium Bicarbonate (SODIUM BICARBONATE) 0.7 ML Nitroglycerin/Dextrose (NITROGLYCERIN 50MG/D5W 250ML) 8.3 MG Lactated Ringer's (LACTATED RINGERS) 949.5 MLAmlodipine Besylate (NORVASC) 5 MG BID PO (DC) Sodium Chloride (SODIUM CHLORIDE) 20 ML ASDIR IV Magnesium Sulfate (MAGNESIUM SULFATE 2GM/SWFI 50ML) 50 ML DAILY PRN PRN IV (DC) Albuterol/Ipratropium (DUONEB) 3 ML RTQ4H PRN PRN NEB (DC) Tramadol HCl (ULTRAM) 50 MG Q6H PRN PRN PO (DC) Carvedilol (COREG) 25 MG BID PO (DC) Aspirin (ASPIRIN) 81 MG DAILY PO (DC) Atorvastatin Calcium (LIPITOR) 40 MG 2100 PO (DC) Mupirocin (BACTROBAN 2% 22 GM OINTMENT) 1 APPLIC BID NASAL Heparin Sodium (HEPARIN 5000 UNITS/ML) 0 ASDIR PRN IV (DC) Heparin Sodium (Porcine) (HEPARIN 25,000 UNITS/ 1/2NS 500ML) 500 ML ASDIR IV (DC) Hydralazine HCl (APRESOLINE) 10 MG Q6H PRN PRN IV (DC) Acetaminophen (TYLENOL) 650 MG Q4H PRN PRN PO (DC) Hydrocodone Bitart/Acetaminophen (NORCO 5/325) 1 TAB Q6H PRN PRN PO (DC) ResultsFindings/Data:Laboratory Tests 01/02/231925:[Embedded Image Not Available] 01/02/23 0333:[Embedded Image Not Available]Laboratory Tests 01/02 3912 2770 1715Blood Gas Puncture Site Art Line O2 Saturation (90 - 100 %) 92.9 96.2 99.5 99.8 ABG pH (7.35 - 7.45) 7.336 L 7.358 7.389 7.386 ABG pCO2 (35.0 - 45 mmHg) 46.7 H 41.1 42.8 42.4 ABG pO2 (80 - 100.0 mmHg) 71.2 L 86.6 169.3 H 235.2 *H ABG PO2/FiO2 Ratio (mm/Hg) 142.40 ABG HCO3 (22.0 - 26.0 MMOL/L) 25.0 23.1 25.8 25.4 ABG Total CO2 26.4 24.4 27.1 26.7 ABG Base Excess (-4.0 - 4.0 MMOL/L) -0.9 -2.3 0.6 0.3 ABG Hematocrit (37.5 - 50.7 %) [...] - 100.0 mmHg) 371.5 *H 181.9 H 532.6 *H ABG HCO3 (22.0 - 26.0 MMOL/L) 25.9 24.5 24.4 ABG Total CO2 27.4 25.8 25.6 ABG Base Excess (-4.0 - 4.0 MMOL/L) -0.2 -0.4 0.5 ABG Hematocrit (37.5 - 50.7 %) 34 L 42 44 ABG Hemoglobin (12.5 - 16.9 G/DL) 11.4 L 14.3 15.1 Sodium (134 - 147 mmol/L) 137 138 139 Potassium (3.4 - 5.0 mmol/L) 5.5 H 5.1 H 4.7 Chloride (100 - 108 mmol/L) 100 105 104 Ionized Calcium (1.12 - 1.32 MMOL/L) 0.99 L 1.00 L 1.03 L Lactic Acid (0.9 - 1.7 mmol/l) 0.7 L 0.8 L 0.8 L Laboratory Tests 01/02 01/02 01/02 01/02 01/02 1927 1855 1743 1715 1644 Chemistry POC Creatinine (0.8 - 1.3 mg/dL) 1.1 1.0 1.1 1.0 0.9 POC Glucose (mg/dL) (70 - 110 [...] Laboratory Tests 01/02 01/02 01/02 01/02 01/02 185 1744 1715 1645 1618 Coagulation Activated Coag Time (74 - 137 SEC) 113 474 H 540 H 642 H 600 H 01/02 01/02 1531 0333 Coagulation PTT ([place]) (25.0 - 39.5 Seconds) 62.5 H Activated [...] % (Auto) (14.0 - 32.0 %) 27.2 Kane % (Auto) (4.8 - 9.0 %) 9.7 H Eos % (Auto) (0.3 - 3.7 %) 3.9 H Baso % (Auto) (0.0 - 2.0 %) 0.6 Neut # (Auto) (2.0 - 7.6 x10 3/uL) 4.02 Lymph # (Auto) (1.0 - 3.8 x10 3/uL) 1.89 Kane # (Auto) (0.1 - 0.8 x10 3/uL) 0.67 Eos # (Auto) (0.0 - 0.2 x10 3/uL) 0.27 H Baso # (Auto) (0.0 - 0.2 x10 3/uL) 0.04 Abs Immat Gran (auto) (0.00 - 0.03 x10 3/uL) 0.05 H Add Manual Diff NO Immature Gran % (0.0 - 2.0 %) 0.7 Nucleated RBC % (0 - 0 %) 0.0 Nucleated RBCs # (Man) (0.0 - 0.1 x10 3/uL) 0.00 Microbiology:01/01 1450 NASAL: MSSA Surveillance Screen - COMP03/19 1450 NASAL: MRSA DNA Surveillance Screen - COMP Radiology data:Recent Impressions:ULTRASOUND - DUP UE ART UNI/LTD 01/02 1330 Report Impression - Status: SIGNED Entered: 01/02/2023 1604 IMPRESSION:1. Insufficient ulnar collateral circulation to the left hand (thumb) after radial artery compression.2. No soft tissue edema or fluid collection. Impression By: [email or web address] - Kentrell Jaime M.D. Free Text Obj NotesFree Text Obj Notes:GEN: Patient is calm and in no distressNECK: Neck is supple, no JVD or thrush. No adenopathy.LUNGS: Coarse breath sounds, no wheezes, no rales or crackles. HEART: S1/S2 regular, no murmurs are heard. No S3 or rubs. ABDOMEN: Abdomen is soft, not tender. Bowel sounds are present.EXT: No edema. No clubbing nor cyanosis noted.SKIN: Warm, with no rashes.NEURO: Intubated, sedated but follow commands Diagnosis, Assessment Plan Diagnosis, Assessment PlanProblem list/A P: 1. Hypertension 2. Coronary artery disease due to calcified coronary lesion 3. Non-STEMI (non-ST elevated myocardial infarction) Free text DxA P:Acute pulmonary insufficiency following thoracic surgeryStatus post CABG x 4 (BURDICK-LAD, SVG-Ramus, SVG-OM, SVG-PDA) and ALAAAcute blood loss anemiaHypotensionCADAlcohol abuse Continue mechanical ventilation, vent settings reviewedTitrate FiO2 to keep saturation more than 90%.Spontaneous breathing trial as soon as possibleWean to extubateGood spontaneous breathing trialGood weaning parametersThe patient was extubated to nasal cannula and doing wellFollow ABGs and CXRsKeep off sedationJudicious pain controlNorepinephrine dripEpinephrine dripWean pressors to keep MAP more than 65Give 1 bottle of albumin 5%, 250 ccGive 250 cc normal saline bolusAspirin and PlavixAtorvastatinMetoprololFollow lactate levelMonitor chest tube outputMonitor urine output and kidney functionMonitor and replete electrolytesPerioperative antibioticsBowel regimenCardiac dietBG control with insulin gtt per protocolPT/OTVTE prophylaxis.Stress ulcer prophylaxis.Discussed with CV surgery and ICU teamCritical care time 90 minutes at 2304 RPT #:[id number] OF REPORTDSAevpljsqtvop5879-03-62Y06:49:0 0G.[id number] for patient iadiVFDTWMNNDHQVEO4370-25-57R64:04:27 [facility] 2023-01-02 19:38:00 [id number]/h1eJvQqvPy0HlMgp 6 pDOW3bUWNEYU/CAOWo8EejhJFvb8YnbYgnY5893-3 9:38:509932-3268 [place] [address] PATIENT NAME: SHEKHAR LOZADA ADMIT DATE: 12/30/22ACCOUNT NO: [id number] [place] [facility] [place] AGE: 52 REPORT TYPE: eELECTROCARDIOGRAM REPORT SEX: M ADMITTING PHYSICIAN:Eric Crabtree MD ATTENDING PHYSICIAN:Eric Crabtree MD Order:[id number] Reason : S/P CABG Test Date/Time Stamp:MonJan 02 2023 19:38:06Blood Pressure : / mmHGVent. Rate : 059 BPM Atrial Rate : 059 BPM P-R Int : 182 ms QRS Dur : 144 ms QT Int : 468 ms P-R-T Axes : 025 -35 080 degrees QTc Int : 463 ms Sinus bradycardiaLeft axis deviationRight bundle branch blockAbnormal ECGNo previous ECGs availableConfirmed by JEANNIE LOPEZ MD ([id number]) on 01/02/2023 9:18:56 PM Referred By: Kodi Crabtree Confirmed by:JEANNIE LOPEZ MD at 2117 PATIENT NAME: SHEKHAR LOZADA .[id number] for patient chrpZBBSXOQRCQUBPZ6090-88-75K31:19:18 [facility] 2023-01-02 19:07:00 [id number]wp2 c 8fk9Ifhxm7ScIK3DdVN6ZVe7VkvZsl42lax7763-8 9:07:121874-4115 [place] [address] PATIENT NAME: SHEKHAR LOZADA ADMIT DATE: 12/30/22ACCOUNT NO: [id number] [place] [facility] [place] AGE: 52 REPORT TYPE: OPERATIVE REPORT SEX: M ADMITTING PHYSICIAN:Eric Crabtree MD ATTENDING PHYSICIAN:Eric Crabtree MD OPERATION DATE: 01/02/2023 PREOPERATIVE DIAGNOSES:1. Coronary artery disease.2. Cardiomyopathy. POSTOPERATIVE DIAGNOSES:1. Coronary artery disease.2. Cardiomyopathy. PROCEDURES: 1. Coronary artery bypass graft surgery x4 (BURDICK to LAD, saphenous vein toramus, saphenous vein to marginal, saphenous vein to PDA).2. Amputation of left atrial appendage.3. Endoscopic vein harvesting (right greater saphenous vein).4. Posterior pericardiotomy. SURGEON: Maine Crabtree M.D. SAWMILL MANAGER: Anna Preston. ANESTHESIOLOGIST: Dr. Pina. ANESTHESIA: General endotracheal anesthesia. ESTIMATED BLOOD LOSS: 100 mL INDICATIONS: The patient is a 52-year-old gentleman with significant coronaryartery disease involving the left main and cardiomyopathy with ejection fractionof about 35%. After due preoperative counseling, he was brought to theoperating room today for surgical revascularization. FINDINGS: 1. Vein was harvested from the right leg using endoscopic vein harvesttechnique. Vein was of satisfactory quality measuring about 4 mm in size.2. Normal sternum.3. Good quality BURDICK measuring 2 mm in size with excellent flow.4. Normal pericardium without any intrapericardial adhesions, minimalintrapericardial fluid.5. LAD 2 mm, slightly diseased artery.6. Ramus 2 mm, good quality artery. PATIENT NAME: SHEKHAR LOZADA 7. Marginal 2 mm, good quality artery.8. PDA 2 mm, good quality artery.9. Left atrial appendage was amputated half a centimeter from the base and thiswas closed, then repaired with two layers of running pledgeted 4-0 Prolenesuture.10. Posterior pericardiotomy was performed by making a cruciate incision andexcising about 1 cm x 1 cm of the posterior pericardium, so as to preventpostoperative pericardial effusion. DESCRIPTION OF PROCEDURE: The patient was identified in the preoperativeholding area and brought to the OR, placed supine on the operating table. Afterinduction of general endotracheal anesthesia, Siddiqui catheter, radial arterialline, and antibiotics were placed. The patient's anterior torso and both legswere prepped and draped in standard surgical fashion. Vein was harvested fromthe right leg using endoscopic vein harvest technique. Following harvesting ofvein, subcutaneous tissue was closed with 2-0 Vicryl and skin with 4-0 Vicryl.Simultaneously, median sternotomy was performed. Left internal mammary arterywas harvested. The patient was heparinized. Pericardium was openedlongitudinally. Pericardial well was created. Cardiopulmonary bypass wasinstituted using ascending aorta and 3-stage cannula in the right atrium. Thepatient was cooled to 32 degrees centigrade. Crossclamp was applied and theheart was arrested with 1.5 liters antegrade cold blood cardioplegia.Cardioplegia was repeated at interval of 10 minutes all throughout duration ofcross-clamp. We began by exploring the PDA. This was a good quality arterymeasuring 2 mm. An arteriotomy was performed with a [place] blade and extendedwith Mendiola scissors. A segment of previously harvested reverse saphenous veinwas was anastomosed in end-to-side manner using running 7-0 Prolene suture. TheVein graft to PDA was brought along the right side of the heart and sized.Aortotomy was performed on the right aspect of the aorta using 4 mm punch.Proximal anastomosis of the PDA graft was then performed using running 6-0Prolene suture. Next, the left atrial appendage was amputated half a centimeterfrom the base. This was then repaired with two layers of running pledgeted 4-0Prolene suture. Next, a cruciate incision was made on the posterior pericardiumand pericardium of a size 1-inch x 1-inch was excised. Next, the marginal wasexplored. This was a good quality artery measuring 2 mm in size. Anarteriotomy was performed with [place] blade and extended with Mendiola scissors. Asegment of previously harvested reverse saphenous vein was anastomosed vrttf-bf-lnyr manner using 7-0 Prolene suture. Vein graft to marginal was broughtalong the left side of the heart and sized. Aortotomy was performed on the leftaspect of the aorta using 4-mm punch. Proximal anastomosis of the marginalgraft was then performed using running 6-0 Prolene suture. Rewarming wascommenced at this stage. Next, the ramus was explored. This was good qualityartery measuring 2 mm in size. An arteriotomy was performed with a [place] bladeand extended with Mendiola scissors. A segment of previously harvested reversesaphenous vein was anastomosed in end-to-side manner using running 7-0 Prolenesuture. The vein graft to ramus was then brought to the left side of the heartand sized. Aortotomy was performed on the left aspect of the aorta using 4 mmpunch. Proximal anastomosis of the ramus was then performed using running 6-0Prolene suture. Finally, LAD was explored. This was a slightly diseased arterymeasuring 2 mm in size. An arteriotomy was performed with a [place] blade andextended with Mendiola scissors. BURDICK was anastomosed in an end-to-side mannerusing running 8-0 Prolene suture. BURDICK pedicle was tacked to the epicardiumusing two interrupted 6-0 Prolene suture. A slit was made in the pericardium onthe left aspect, so as to accommodate the BURDICK. Careful de-aeration was PATIENT NAME: SHEKHAR LOZADA performed, and the crossclamp was released. One ventricular wire was placed. B21-Jymduh chest tube was placed in the mediastinum and 28 angled chest tube wasperformed on the left pleural space. Once the patient was at temperature, de-airing maneuvers were repeated and the patient was weaned off cardiopulmonary bypass with some inotropic support. Heparin was reversed with protamine.Decannulation was uneventful. After confirming hemostasis, the chest was closed in layers using stainless steel wires for the sternum, #1 Vicryl for the fascia, 2-0 Vicryl for the subcutaneous tissue and 4-0 Vicryl for the skin. The patient was transferred to intensive care unit, intubated in stable condition. Dictated By: Eric Crabtree MD Date Dictated: 01/02/2023 19:07:50Date Transcribed: 01/02/2023 23:56:13JERICHO/Alexis #: [id number] ID: [id number] and Edited by Tremayne Crabtree MD On 01/04/23 2:46:52 PM at 0249 PATIENT NAME: SHEKHAR LOZADA ydgspo9742-83-36U70:56:00G.[id number] 18AVAvailable for patient hsorWZODLAVFZVJQWU3926-03-70W62:49:49 [facility] 2023-01-02 18:59:00 [id number] v CAFohBt3VoC0vdHLrLqNmWEv0SikIdrs9AR5601-2 8:59:00 [facility] ([facility])Brief Op NoteREPORT#:[id number] REPORT STATUS: SignedDATE:01/02/23 TIME: 1858 PATIENT: SHEKHAR LOZADA UNIT #: [id number]#: [id number] [address] AGE: 52 SEX: M ATTEND: Eric Crabtree [facility] AUTHOR: Eric Crabtree MD * ALL edits or amendments must be made on the electronic/computer document * Op/Inv Proc Note - BriefPre-procedure diagnosis:CADCardiomyopathyPost-procedure diagnosis: same as pre procedure dxProcedures performed:CABG x 4 (BURDICK-LAD, SVG-Ramus, SVG-OM, SVG-PDA)ALAAEVH (RGSV)Posterior pericartiotomyPrimary Surgeon:Alot(s): Anna FloresFindings:LAD-2mm slightly diseased arteryComplications: noneEstimated blood loss in ml's: noneSpecimens removed/altered: KAYLEY at 1901 RPT #:[id number] OF REPORTOPOperative yvtnla7043-85-00X53:59:00G.WQUW56585514-4 407AVAvailable for patient anmpEOCBQIXDONSYUJ1808-50-45U05:01:38 [facility] 2023-01-02 10:11:00 [id number]lQ 4 ivKz1aKPQAMfrp7goW8uS7rvS/2p2k8jCPL7056-2 0:11:00 [facility]Card[facility] Progress NoteREPORT#:[id number] REPORT STATUS: SignedDATE:01/02/23 TIME: 1011 PATIENT: SHEKHAR LOZADA UNIT #: [id number]#: [id number] [address] [birth year] AGE: 52 SEX: M ATTEND: Eric Crabtree [facility] AUTHOR: Juanis Blevins * ALL edits or amendments must be made on the electronic/computer document * SubjectivePatient reports:No: complaints. Objective GeneralVS/I O:24 hour I O ending at 0700: 01/02 0700 01/01 1900 Intake Total 538.00 1488.00 Output Total Balance 538.00 1488.00 Intake, IV 288.00 288.00 Intake, Oral 250 1200 Number 1 Bowel Movements Number Voids 4 4 Patient 107.7 kg Weight Weight Standing scale Measurement Method Vital Signs: Date Time Temp Pulse Resp B/P B/P Pulse O2 O2 Flow FiO2 Mean Ox Delivery Rate 01/02 0532 36.5 62 18 116/77 89.8 94 01/02 0111 36.9 70 18 138/66 90.2 97 01/02 010 36.8 68 18 134/84 100.5 96 01/02 2028 36.9 67 18 163/87 112.3 96 [...] 96 Room air PATIENT WEIGHT: Weight (lb): 237Weight (oz): 7.01Weight (kg): 107.700 Medications:Active Meds + DC'd Last 24 HrsEpinephrine HCl (EPINEPHrine 4 mg/D5W 250 mL) 250 ML .STK-MED ONE IV (DC) Heparin Sodium (HEPARIN SODIUM) 0 .STK-MED ONE .ROUTE (DC) Insulin Human Regular (HumuLIN R 100 UNITS/NS 100ML) 100 ML .STK-MED ONE IV (DC) Norepinephrine Bitartrate (NOREPINEPHRINE 8 MG/NS 250 ML) 250 ML .STK-MED ONE IV (DC) Aminocaproic Acid (AMICAR) 0 .STK-MED ONE IV (DC) Calcium Chloride (CALCIUM CHLORIDE) 0 .STK-MED ONE IV (DC) Nitroglycerin/Dextrose (NITROGLYCERIN 50,000MCG/D5W 250ML) 250 ML .STK-MED ONE IV (DC) Protamine Sulfate (PROTAMINE SULFATE) 0 .STK-MED ONE IV (DC) Ropivacaine (NAROPIN 0.5% 150 MG/30mL) 0 .STK-MED ONE .ROUTE (DC) Magnesium Sulfate (MAGNESIUM SULFATE) 0 .STK-MED ONE .ROUTE (DC) Dexamethasone Sodium Phosphate (DECADRON) 0 .STK-MED ONE .ROUTE (DC) Esmolol HCl (BREVIBLOC) 0 .STK-MED ONE IV (DC) Lidocaine HCl (XYLOCAINE) 0 .STK-MED ONE .ROUTE (DC) Ondansetron HCl (ZOFRAN) 0 .STK-MED ONE .ROUTE (DC) Rocuronium Bent (ZEMURON) 0 .STK-MED ONE IV (DC) Sodium Chloride (SODIUM CHLORIDE 0.9%) 100 ML .STK-MED ONE IV (DC) Acetaminophen (TYLENOL EXTRA STRENGTH) 1,000 MG PREOP ONCALL PO (CKD) Gabapentin (NEURONTIN) 200 MG PREOP ONCALL PO (CKD) Lactated Ringer's (LACTATED RINGERS) 1,000 ML PREOP ONCALL IV Lidocaine HCl (LIDOCAINE HCL/PF) 2 ML PREOP ONCALL LOCAL Lidocaine HCl (LIDOCAINE HCL/PF) 2 ML PREOP ONCALL LOCAL Sodium Chloride (SODIUM CHLORIDE 0.9%) 500 ML PREOP ONCALL IV Sodium Chloride (SODIUM CHLORIDE) 5 ML ASDIR PRN IV Sodium Chloride (SODIUM CHLORIDE) 10 ML ASDIR PRN IV Sodium Chloride (SODIUM CHLORIDE 0.9%) 250 ML ASDIR PRN IV Cefazolin Sodium (KEFZOL OR ANCEF) 2 GM PREOP ONCALL IV (CKD) Metoprolol Tartrate (LOPRESSOR) 6.25 MG ONCE ONE PO (DC) Vancomycin HCl (VANCOMYCIN HCL) 1,618.5 MG PREOP ONCALL IV (CKD) Sodium Chloride (SODIUM CHLORIDE 0.9%) 250 MLVerapamil HCl (ISOPTIN) 16.6 MG .Q24H ONE IV (CKD) Heparin Sodium (Porcine) (HEPARIN SODIUM) 1,660 UNIT Sodium Bicarbonate (SODIUM BICARBONATE) 0.7 ML Nitroglycerin/Dextrose (NITROGLYCERIN 50MG/D5W 250ML) 8.3 MG Lactated Ringer's (LACTATED RINGERS) 949.5 MLAmlodipine Besylate (NORVASC) 5 MG BID PO Magnesium Sulfate/Dextrose (MAGNESIUM SULFATE 1GM/D5W 100ML) 100 ML ONCE ONE IV (DC) Sodium Chloride (SODIUM CHLORIDE) 20 ML ASDIR IV Magnesium Sulfate (MAGNESIUM SULFATE 2GM/SWFI 50ML) 50 ML DAILY PRN PRN IV (CKD) Albuterol/Ipratropium (DUONEB) 3 ML RTQ4H PRN PRN NEB Tramadol HCl (ULTRAM) 50 MG Q6H PRN PRN PO Carvedilol (COREG) 25 MG BID PO Aspirin (ASPIRIN) 81 MG DAILY PO Atorvastatin Calcium (LIPITOR) 40 MG 2100 PO Mupirocin (BACTROBAN 2% 22 GM OINTMENT) 1 APPLIC BID NASAL Heparin Sodium (HEPARIN 5000 UNITS/ML) 0 ASDIR PRN IV Heparin Sodium (Porcine) (HEPARIN 25,000 UNITS/ 1/2NS 500ML) 500 ML ASDIR IV (CKD) Hydralazine HCl (APRESOLINE) 10 MG Q6H PRN PRN IV Acetaminophen (TYLENOL) 650 MG Q4H PRN PRN PO Amlodipine Besylate (NORVASC) 5 MG DAILY PO (DC) Hydrocodone Bitart/Acetaminophen (NORCO 5/325) 1 TAB Q6H PRN PRN PO Physical ExamGeneral appearance: alert, awake, orientedNeck: non-tender, no bruit/NL carotidsCardiovascular: CV assessment: regular rate and rhythmRespiratory: decreased breath sounds, no distressAbdomen: non-tender, obeseGenitourinary: no flank pain, no urinary catheterLower extremity: LE assessment: no calf tenderness, no edemaMusculoskeletal: normal inspectionNeuro/NEURO UROLOGIST: alert, oriented X 3, normal speechSkin: dry, intact, normal colorPsychiatry: normal affect, normal mood ResultsFindings/Data:Laboratory Tests 01/02 01/01 01/01 0333 1317 1027 [...] PT Patient/Control Mix (9.3 - 12.9 SECONDS) 11.7 Laboratory Tests 01/02 01/01 0333 1317 Hematology [...] (Auto) (14.0 - 32.0 %) 27.2 21.3 Kane % (Auto) (4.8 - 9.0 %) 9.7 H 9.2 H Eos % (Auto) (0.3 - 3.7 %) 3.9 H 3.7 Baso % (Auto) (0.0 - 2.0 %) 0.6 0.6 Neut # (Auto) (2.0 - 7.6 x10 3/uL) 4.02 4.22 Lymph # (Auto) (1.0 - 3.8 x10 3/uL) 1.89 1.39 Kane # (Auto) (0.1 - 0.8 x10 3/uL) 0.67 0.60 Eos # (Auto) (0.0 - 0.2 x10 3/uL) 0.27 H 0.24 H Baso # (Auto) (0.0 - 0.2 x10 3/uL) 0.04 0.04 Abs Immat Gran (auto) (0.00 - 0.03 x10 3/uL) 0.05 H 0.03 Add Manual Diff NO NO Immature Gran % (0.0 - 2.0 %) 0.7 0.5 Nucleated RBC % (0 - 0 %) 0.0 0.0 Nucleated RBCs # (Man) (0.0 - 0.1 x10 3/uL) 0.00 0.00 Laboratory Tests 01/01 1450 Serology SARS-CoV-2 Ag (Rapid) (Negative) Negative Microbiology Date/Time Procedure - Status Source Growth 01/01 145 MSSA Surveillance Screen - COMP NASAL 01/01 1450 MRSA DNA Surveillance Screen - COMP NASAL Laboratory Tests 01/02 01/01 0333 1027 Chemistry Magnesium (1.80 - 2.40 mg/dL) 2.16 1.95 Results: labs reviewed, vital signs reviewed, rhythm personally rev'dTelemetry Interpretation:sinus rhythm Diagnosis, Assessment PlanPlan discussed with: patient, family Free Text DxA P NotesFree Text DxA P Notes:52-year-old male with medical history of hypertension, lifelong smoker,alcohol use who presents to ED at [facility] with back pain and chest pain. He was ruled in for non-STEMI. Taken to [facility] where he was found to have multivessel CAD with tight left main. Patient is transferred here for CABG evaluation. He is not having active chest pain. His main complaint is back pain and headache. His blood pressure is markedly elevated at the time of visit,208/111 mmHg. 1. NSTEMI/multivessel CAD with left main diseasecontinue aspirin 81 mg daily, atorvastatin 40 mg daily, carvedilol 12.5 mg twicedaily Heparin drip ACS protocolCABG today 2. Hypertensive urgency - normotensiveBP trend better continue carvedilol 25 mg BID, amlodipine 5 mg po BIDcontinue IV hydralazine 10 mg Q6H PRN for SBP > 170 mmHgadjust meds as needed 3. Tobacco and alcohol useCounseled cessationCT chest showed mild emphysema and pulmonary nodulepulmonary consulted 4. Chronic back pain.manage per primary team at 1335 at 1524 RPT #:[id number] OF REPORTPRProgress ggta5549-05-46I03:11:00G.[id number] 1AVAvailable for patient xzdkFKCQRSVWOGEPCN3318-50-22S01:36:06 [facility] 2023-01-02 09:43:00 [id number]+8sAQsXZ1toY7vzwhecNb q LU5IchubIDJ1olXJ2KgZe8uvEwsAawUJoxi7972-4 09:43:00 [facility] ([facility])Pulmonology Progress NoteREPORT#:[id number] REPORT STATUS: SignedDATE:01/02/23 TIME: 942 PATIENT: SHEKHAR LOZADA UNIT #: [id number]#: [id number] [address] [birth year] AGE: 52 SEX: M ATTEND: rEic Crabtree [facility] AUTHOR: Rod Hancock [employer]URITY [employer]PLIANCE PROJECT MANAGER * ALL edits or amendments must be made on the electronic/computer document * SubjectiveChief complaint:He is waiting for His PFT.His CP and SOB better.No CP, fever, chills.No N/v/d. Review of Systems ROSConstitutional:fatigue, generalized weakness. Allergy/Immun:Denies: anaphylaxis, itching, rhinorrhea. Respiratory:Denies: hemoptysis, pleurisy, pleuritic pain, pneumonia, productive cough (sputum). Cardiovascular:Denies: KISER (dyspnea on exertion), orthopnea, palpitations. GI:Denies: constipation, GERD, hematochezia, melena. :Denies: flank pain, testicular swelling. Musculoskeletal:Denies: extremity pain, joint swelling, neck pain, thoracic pain. Heme:Denies: bleeding, bruising. Neuro:Denies: change in LOC, dizziness, focal weakness, gait problem, headache, spinning sensation, syncope. Objective GeneralVS/I O:Last Documented: Result Date Time Pulse Ox 94 01/03 532 B/P 116/77 01/03 532 B/P Mean 89.8 03/20 0532 Temp 36.5 01/02 0532 Pulse 62 [...] scale Measurement Method PATIENT WEIGHT: Weight (lb): 237Weight (oz): 7.01Weight (kg): 107.700 Medications:Active Meds + DC'd Last 24 HrsAcetaminophen (TYLENOL EXTRA STRENGTH) 1,000 MG PREOP ONCALL PO (CKD) Gabapentin (NEURONTIN) 200 MG PREOP ONCALL PO (CKD) Lactated Ringer's (LACTATED RINGERS) 1,000 ML PREOP ONCALL IV Lidocaine HCl (LIDOCAINE HCL/PF) 2 ML PREOP ONCALL LOCAL Lidocaine HCl (LIDOCAINE HCL/PF) 2 ML PREOP ONCALL LOCAL Sodium Chloride (SODIUM CHLORIDE 0.9%) 500 ML PREOP ONCALL IV Sodium Chloride (SODIUM CHLORIDE) 5 ML ASDIR PRN IV Sodium Chloride (SODIUM CHLORIDE) 10 ML ASDIR PRN IV Sodium Chloride (SODIUM CHLORIDE 0.9%) 250 ML ASDIR PRN IV Cefazolin Sodium (KEFZOL OR ANCEF) 2 GM PREOP ONCALL IV (CKD) Metoprolol Tartrate (LOPRESSOR) 6.25 MG ONCE ONE PO (DC) Vancomycin HCl (VANCOMYCIN HCL) 1,618.5 MG PREOP ONCALL IV (CKD) Sodium Chloride (SODIUM CHLORIDE 0.9%) 250 MLVerapamil HCl (ISOPTIN) 16.6 MG .Q24H ONE IV (CKD) Heparin Sodium (Porcine) (HEPARIN SODIUM) 1,660 UNIT Sodium Bicarbonate (SODIUM BICARBONATE) 0.7 ML Nitroglycerin/Dextrose (NITROGLYCERIN 50MG/D5W 250ML) 8.3 MG Lactated Ringer's (LACTATED RINGERS) 949.5 MLAmlodipine Besylate (NORVASC) 5 MG BID PO Magnesium Sulfate/Dextrose (MAGNESIUM SULFATE 1GM/D5W 100ML) 100 ML ONCE ONE IV (DC) Sodium Chloride (SODIUM CHLORIDE) 20 ML ASDIR IV Magnesium Sulfate (MAGNESIUM SULFATE 2GM/SWFI 50ML) 50 ML DAILY PRN PRN IV (CKD) Albuterol/Ipratropium (DUONEB) 3 ML RTQ4H PRN PRN NEB Tramadol HCl (ULTRAM) 50 MG Q6H PRN PRN PO Albuterol Sulfate (ALBUTEROL SULFATE) 2.5 MG RTONCE ONE NEB (DC) Carvedilol (COREG) 25 MG BID PO Aspirin (ASPIRIN) 81 MG DAILY PO Atorvastatin Calcium (LIPITOR) 40 MG 2100 PO Mupirocin (BACTROBAN 2% 22 GM OINTMENT) 1 APPLIC BID NASAL Heparin Sodium (HEPARIN 5000 UNITS/ML) 0 ASDIR PRN IV Heparin Sodium (Porcine) (HEPARIN 25,000 UNITS/ 1/2NS 500ML) 500 ML ASDIR IV (CKD) Hydralazine HCl (APRESOLINE) 10 MG Q6H PRN PRN IV Acetaminophen (TYLENOL) 650 MG Q4H PRN PRN PO Amlodipine Besylate (NORVASC) 5 MG DAILY PO (DC) Hydrocodone Bitart/Acetaminophen (NORCO 5/325) 1 TAB Q6H PRN PRN PO Dietitian nutrition assessmentThe data set between the solid lines has been imported from the dietitian's assessment. BMI Calculated: 39.5Nutrition related diagnosis: Nutrition diagnosis details: Nutrition problem: Nutrition etiology: Nutrition signs and symptoms: Nutrition prescription: Dietitian name: Assessment completed: Physical ExamGeneral appearance: alert, awake, orientedHead/eyes: atraumatic, normocephalic, PERRLACardiovascular: normal heart sounds, normal S1/S2, regular rate rhythmRespiratory/chest: aerating well, clear to auscultation, symmetric expansion, nodistressAbdomen: soft, non-tender, no CVA tendernessGenitourinary: no bladder distention, no flank painExtremities: no clubbing, no cyanosis, no edemaMusculoskeletal: no muscle spasmNeuro/NEURO UROLOGIST: alert, oriented X 3, CNII-XII intact ResultsFindings/Data:Laboratory Tests 01/02/23 0333:[Embedded Image Not Available] 01/01/23 1317:[Embedded Image Not Available] 01/01/23 1027:[Embedded Image Not Available]Laboratory Tests 01/02 1317 1027 Chemistry Sodium (134 - 147 [...] - 5.0 g/dL) 3.80 Laboratory Tests 01/02 1317 Coagulation INR (0.8 - 1.2) 1.1 PTT ([place]) (25.0 - 39.5 Seconds) 62.5 H 65.6 H PT Patient/Control Mix (9.3 - 12.9 SECONDS) 11.7 Laboratory Tests 01/02 131 Hematology WBC (4.5 - 11.0 x10 3/uL) [...] (Auto) (14.0 - 32.0 %) 27.2 21.3 Kane % (Auto) (4.8 - 9.0 %) 9.7 H 9.2 H Eos % (Auto) (0.3 - 3.7 %) 3.9 H 3.7 Baso % (Auto) (0.0 - 2.0 %) 0.6 0.6 Neut # (Auto) (2.0 - 7.6 x10 3/uL) 4.02 4.22 Lymph # (Auto) (1.0 - 3.8 x10 3/uL) 1.89 1.39 Kane # (Auto) (0.1 - 0.8 x10 3/uL) 0.67 0.60 Eos # (Auto) (0.0 - 0.2 x10 3/uL) 0.27 H 0.24 H Baso # (Auto) (0.0 - 0.2 x10 3/uL) 0.04 0.04 Abs Immat Gran (auto) (0.00 - 0.03 x10 3/uL) 0.05 H 0.03 Add Manual Diff NO NO Immature Gran % (0.0 - 2.0 %) 0.7 0.5 Nucleated RBC % (0 - 0 %) 0.0 0.0 Nucleated RBCs # (Man) (0.0 - 0.1 x10 3/uL) 0.00 0.00 Laboratory Tests 01/01 1450 Serology SARS-CoV-2 Ag (Rapid) (Negative) Negative Microbiology Date/Time Procedure - Status Source Growth 01/01 1450 MSSA Surveillance Screen - COMP NASAL 01/01 1450 MRSA DNA Surveillance Screen - COMP NASAL Results: labs reviewed, vital signs reviewed, vital signs stable, current med profile rev'd Treatment Prophylaxis Treatment ProphylaxisOxygen: room air Diagnosis, Assessment PlanFree Text A P:Assessment and Plan: - Dyspnea due to Multivessel CAD and Emphysema.- Emphysema/COPD.- Multivessel CAD.- CP due to CAD.- HX of HTN.- Smoker. Plan: CVN1.PFTSs.Will continue Bronchodilator, Monitor respiratory status, breathing tx, o2 support.Preop work up per CV surgery.Pain meds.Antiemetics.Follow labs and replace as needed.SCDs for DVT ppx.Continue Home meds.Monitor.Code status: full codePlan discussed with: patient, admitting physician, consultants, nurse Quality: Gen Med Crit Care Advanced Care Plan 65 or OlderDiscussed with: patient at 0945 at 1004 [facility] #:[id number] OF REPORTPRProgress [id number]:43:00G.[id number] 2AVAvailable for patient towvWYYXNJUVMKFKUZ1383-47-30U01:45:33 [facility] 2023-01-01 13:17:00 [id number]/7 n 2LMSiCRIuoE1CXrXOXqASGcLXWpICE10g8w2326-3 01-01T13:17:00 [facility] ([facility])Clinical NoteREPORT#:[id number] REPORT STATUS: SignedDATE:01/01/23 TIME: 1317 PATIENT: SHEKHAR LOZADA UNIT #: [id number]#: [id number] [address]DOB: [birth year] AGE: 52 SEX: M ATTEND: Eric Crabtree [facility] AUTHOR: Zabrina Ruiz * ALL edits or amendments must be made on the electronic/computer document * Clinical NoteNote: Risk of Mortality: 0.394%Renal Failure: 0.524%Permanent Stroke: 0.369%Prolonged Ventilation: 3.674%DSW Infection: 0.330%Reoperation: 0.993%Morbidity or Mortality: 5.281%Short Length of Stay: 72.099%Long Length of Stay: 1.191% at 1318 RPT #:[id number] OF REPORTCLClinical [id number]:17:00G.[id number] 0AVAvailable for patient wvyjHZRHMBXVMENNWO9742-51-66X47:18:29 [facility] 2023-01-01 10:50:00 [id number] bNbteKLvrypU9UwEYaZZ0r2PYGfAO9lyVqO1101-2 01-01T10:50:00 [facility])Pulmonary Consultation NoteREPORT#:[id number] REPORT STATUS: SignedDATE:01/01/23 TIME: 1050 PATIENT: SHEKHAR LOZADA UNIT #: [id number]#: [id number] [address] [birth year] AGE: 52 SEX: M ATTEND: Eric Crabtree [facility] AUTHOR: Rod Hancock NP * ALL edits or amendments must be made on the electronic/computer document * History of Present Illness HPIRequesting clinician: Dr. Guadarrama for consult:SOB and COPDChief complaint:CP and SOBPCP:PCP: Eric Crabtree MD HPI:This is a 52-year-old gentleman with a past medical history of hypertension who initially presented to an outside hospital with complaints of back pain, and chest pains. He started to develop chest pains located midsternal for the past 2weeks. He describes the chest pains as a heaviness, squeezing sensation. [facility] with a 90% LAD, 60-70% left main, 70-80% circumflex.An echocardiogram was also done at [facility] on 12/28/2022. This showed a normal left ventricular ejection fraction of 55-60%, moderate LVH, mild mitral regurgitation, grade 1 diastolic dysfunction. He admits to smoking 1-2 times perweek. Does admit to alcohol 1-2 times per week. We were consulted for the management of COPD/emphysema. History - Adult longitudinalPast medical history:Reports: Hypertension. Denies: Diabetes mellitus. Additional medical history:HypertensionAdditional surgical history:Denies past surgical historyAdditional family history:Coronary artery disease in his father, grandmother with coronary artery bypassAlcohol use: Alcohol use (consume 12 beers/weekly)Drug use: Denies recreational drugsSmoking status for patients 13 years old or older: Current some day smokerDate last smoked: 12/14/22Packs per day: 8Medications:Home Medications: Medication Dose/Rte/Freq Days Qty Entered Last Max Daily Dose Reviewed LISINOPRIL/HCTZ 1 TAB PO DAILY 12/30/22 12/30/22 (ZESTORETIC 10/12.5 MG) 0734 0734 Strength: 10 MG-12.5 MG TAB Current Hospital Medications:Autonomic Drugs Sig/Dorothy Start time Last Medication Dose Route Stop Time Status Admin Albuterol Sulfate 2.5 MG RTONCE ONE 01/01 0945 DC (ALBUTEROL SULFATE) NEB 01/01 0946 Blood Formation,Coagulation Sig/Dorothy Start time Last Medication Dose Route Stop Time Status Admin Heparin Sodium 0 ASDIR PRN 12/30 1400 AC (HEPARIN 5000 UNITS/ IV 01/29 1359 ML) Heparin Sodium 500 ML ASDIR 12/30 1400 CKD 01/01 (Porcine) IV 01/29 1359 0941 (HEPARIN 25,000 UNITS/ 1/2NS 500ML) Cardiovascular Drugs Sig/Dorothy Start time Last Medication Dose Route Stop Time Status Admin Carvedilol 25 MG BID 01/01 0900 AC 01/01 (COREG) PO 01/31 0859 0940 Carvedilol 12.5 MG BID 12/31 2100 DC 12/31 (COREG) PO 01/30 Atorvastatin Calcium 40 MG 2100 12/30 2100 AC 12/31 (LIPITOR) PO 01/29 Hydralazine HCl 10 MG Q6H PRN PRN 12/30 1245 AC 12/30 (APRESOLINE) IV 01/29 1244 2206 Amlodipine Besylate 5 MG DAILY 12/30 1100 AC 01/01 (NORVASC) PO 01/29 1059 0940 Central Nervous [...] Bitart/ 1 TAB Q6H PRN PRN 12/30 1100 AC 01/01 Acetaminophen PO 01/04 1059 0612 (NORCO 5/325) Skin And Mucous Membrane Agent Sig/Dorothy Start time Last Medication Dose Route Stop Time Status Admin Mupirocin 1 APPLIC BID 12/30 2100 AC 01/01 (BACTROBAN 2% 22 GM NASAL 01/04 0901 0938 OINTMENT) Allergies:Coded Allergies:No Known Allergies (12/30/22) 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 Allergy/Immun:Denies: anaphylaxis, hives, itching. ENT:Denies: ear ringing, nose bleeding, throat swelling. Respiratory:Reports: KISER (dyspnea on exertion), SOB. Cardiovascular:Reports: chest pain. Denies: edema, orthopnea, palpitations, parox nocturnal dyspnea. GI:Denies: abdominal pain, constipation, GERD, hematemesis, hiatal hernia. :Denies: flank pain, frequency, nocturia. Heme:Denies: bleeding, bruising. Neuro:Denies: bowel dysfunction, confusion, gait problem, headache, numbness, seizure. Objective Physical ExamVitals:Last Documented: Result Date Time Pulse Ox 96 01/01 1019 B/P 167/98 01/01 1019 B/P Mean 0.0 01/01 1019 O2 Delivery Room air 01/01 101 Temp 36.6 01/01 1019 Pulse 67 01/01 1019 Resp 14 01/01 1019 General appearance: alert, awake, orientedHead/eyes: atraumatic, normocephalic, PERRLACardiovascular: normal heart sounds, normal S1/S2, regular rate rhythmRespiratory/chest: aerating well, clear to auscultation, symmetric expansion, nodistressAbdomen: soft, non-tender, no CVA tendernessGenitourinary: no bladder distention, no flank painExtremities: no clubbing, no cyanosis, no edemaMusculoskeletal: no muscle spasmNeuro/NEURO UROLOGIST: alert, oriented X 3, CNII-XII intact ResultsFindings/Data:Laboratory Tests 01/01/23 0405:[Embedded Image Not Available]Laboratory Tests 01/01 12/31 0405 1134 Coagulation PTT ([place]) (25.0 - 39.5 Seconds) 60.3 H 61.1 H Laboratory Tests 01/01 0405 Hematology WBC [...] % (Auto) (14.0 - 32.0 %) 27.5 Kane % (Auto) (4.8 - 9.0 %) 10.9 H Eos % (Auto) (0.3 - 3.7 %) 4.7 H Baso % (Auto) (0.0 - 2.0 %) 0.5 Neut # (Auto) (2.0 - 7.6 x10 3/uL) 3.35 Lymph # (Auto) (1.0 - 3.8 x10 3/uL) 1.65 Kane # (Auto) (0.1 - 0.8 x10 3/uL) 0.65 Eos # (Auto) (0.0 - 0.2 x10 3/uL) 0.28 H Baso # (Auto) (0.0 - 0.2 x10 3/uL) 0.03 Abs Immat Gran (auto) (0.00 - 0.03 x10 3/uL) 0.03 Add Manual Diff NO Immature Gran % (0.0 - 2.0 %) 0.5 Nucleated RBC % (0 - 0 %) 0.0 Nucleated RBCs # (Man) (0.0 - 0.1 x10 3/uL) 0.00 Results: labs reviewed, vital signs reviewed, vital signs stable, current med profile rev'd Diagnosis, Assessment Plan Diagnosis, Assessment PlanPlan discussed with: patient, admitting physician, consultants, nurse Code Status/Resusc. DiscussionCode status: full code Free Text DxA P NotesFree Text DxA P Notes:Assessment and Plan: - Dyspnea due to Multivessel CAD and Emphysema.- Emphysema/COPD.- Multivessel CAD.- CP due to CAD.- HX of HTN.- Smoker. Plan: CVN1.PFTs tomorrow.He will be benefit from Bronchodilator preop for emphysema.We will start on Bronchodilator, Monitor respiratory status, breathing tx, o2 support.Preop work up per CV surgery.Pain meds.Antiemetics.Follow labs and replace as needed.SCDs for DVT ppx.Continue Home meds.Monitor. at 1056 at 1004 RPT #:[id number] OF REPORTABHjxkeitnkegw5148-83-17G14:50:0 0G.[id number] for patient yanoVDGGLYGBKDSHJB5202-74-60J88:56:56 [facility] 2023-01-01 08:56:00 [id number] j ABi6KKkxwqntDDf+/CnGXZeojuUloxB6KPc6156-7 08:56:00 [facility] ([facility])Cardiology Progress NoteREPORT#:[id number] REPORT STATUS: SignedDATE:01/01/23 TIME: 08 PATIENT: SHEKHAR LOZADA UNIT #: [id number]#: [id number] [address] [birth year] AGE: 52 SEX: M ATTEND: Eric Crabtree [facility] AUTHOR: Doreen Villarreal NP * ALL edits or amendments must be made on the electronic/computer document * SubjectiveChief complaint:Back pain.Patient reports:No: abdominal pain, chest pain, shortness of breath. Nursing reports:No: complaints. Comments:Patient is on room air, complain back pain-reports taking BC powder at home but do not control his pain.Reports B[place] is not helping his back pain.He is on heparin drip at 12 units/kg/h.Telemetry shows normal sinus rhythm Objective GeneralVS/I O:24 hour I O ending at 0700: 12/31 1900 01/01 0700 Intake Total 1288.00 648.00 Output Total Balance 1288.00 648.00 Intake, IV 288.00 288.00 Intake, Oral 1000 360 Number 2 Bowel Movements Number Voids 3 3 Patient 107.9 kg Weight Weight Standing scale Measurement Method Vital Signs: Date Time Temp Pulse Resp B/P B/P Pulse O2 O2 Flow FiO2 Mean Ox Delivery Rate 01/01 1104 [...] 69 18 95 PATIENT WEIGHT: Weight (lb): 237Weight (oz): 14.06Weight (kg): 107.900 Medications:Active Meds + DC'd Last 24 HrsCarvedilol (COREG) 12.5 MG BID PO Aspirin (ASPIRIN) 81 MG DAILY PO Atorvastatin Calcium (LIPITOR) 40 MG 2100 PO Mupirocin (BACTROBAN 2% 22 GM OINTMENT) 1 APPLIC BID NASAL Heparin Sodium (HEPARIN 5000 UNITS/ML) 0 ASDIR PRN IV Heparin Sodium (Porcine) (HEPARIN 25,000 UNITS/ 1/2NS 500ML) 500 ML ASDIR IV (CKD) Hydralazine HCl (APRESOLINE) 10 MG Q6H PRN PRN IV Acetaminophen (TYLENOL) 650 MG Q4H PRN PRN PO Amlodipine Besylate (NORVASC) 5 MG DAILY PO Hydrocodone Bitart/Acetaminophen (NORCO 5/325) 1 TAB Q6H PRN PRN PO Physical ExamGeneral appearance: alert, awake, oriented, no acute distress, conversational, mental status normal, no respiratory distressHead/Eyes: atraumatic, clear corneaENT: moist mucosal membranesNeck: non-tender, no bruit/NL carotidsCardiovascular: CV assessment: regular rate and rhythmRespiratory: decreased breath sounds, no distressAbdomen: non-tender, obeseGenitourinary: no flank pain, no urinary catheterLower extremity: LE assessment: no calf tenderness, no edemaMusculoskeletal: normal inspectionNeuro/NEURO UROLOGIST: alert, oriented X 3, normal speechSkin: dry, intact, normal colorPsychiatry: normal affect, normal mood ResultsFindings/Data:Laboratory Tests 01/01 1027 Chemistry Sodium (134 - [...] 1.95 Laboratory Tests 01/01 0405 Coagulation PTT ([place]) (25.0 - 39.5 Seconds) 60.3 H Laboratory [...] % (Auto) (14.0 - 32.0 %) 27.5 Kane % (Auto) (4.8 - 9.0 %) 10.9 H Eos % (Auto) (0.3 - 3.7 %) 4.7 H Baso % (Auto) (0.0 - 2.0 %) 0.5 Neut # (Auto) (2.0 - 7.6 x10 3/uL) 3.35 Lymph # (Auto) (1.0 - 3.8 x10 3/uL) 1.65 Kane # (Auto) (0.1 - 0.8 x10 3/uL) 0.65 Eos # (Auto) (0.0 - 0.2 x10 3/uL) 0.28 H Baso # (Auto) (0.0 - 0.2 x10 3/uL) 0.03 Abs Immat Gran (auto) (0.00 - 0.03 x10 3/uL) 0.03 Add Manual Diff NO Immature Gran % (0.0 - 2.0 %) 0.5 Nucleated RBC % (0 - 0 %) 0.0 Nucleated RBCs # (Man) (0.0 - 0.1 x10 3/uL) 0.00 Laboratory Tests 01/01 1027 Chemistry Magnesium (1.80 - 2.40 mg/dL) 1.95 Results: labs reviewed, vital signs reviewed, vital signs stable, rhythm personally rev'd, current med profile rev'dTelemetry Interpretation:Normal sinus rhythm Diagnosis, Assessment PlanProblem List/A P: 1. Non-STEMI (non-ST elevated myocardial infarction) 2. Coronary artery disease due to calcified coronary lesion 3. Hypertension Plan discussed with: patient, nurse Free Text DxA P NotesFree Text DxA P Notes:52-year-old male with medical history of hypertension, lifelong smoker,alcohol use who presents to ED at [facility] with back pain and chest pain. He was ruled in for non-STEMI. Taken to [facility] where he was found to have multivessel CAD with tight left main. Patient is transferred here for CABG evaluation. He is not having active chest pain. His main complaint is back pain and headache. His blood pressure is markedly elevated at the time of visit,208/111 mmHg. 1. NSTEMI/multivessel CAD with left main diseaseCTS evaluation, CABG preoperative work-up ongoingcontinue aspirin 81 mg daily, atorvastatin 40 mg daily, carvedilol 12.5 mg twicedaily continue Heparin drip ACS protocol 2. Hypertensive urgencyBP trend better but still suboptimal, BP 154-169/82-102 mmHgcontinue carvedilol to 25 mg BID, increase amlodipine 5 mg po biid.continue IV hydralazine 10 mg Q6H PRN for SBP > 170 mmHgMonitor blood pressure closely and adjust meds as needed 3. Tobacco and alcohol useCounseled cessationCT chest showed mild emphysema and pulmonary nodulePatient may need pulmonary consultation -defer to CTS 4. Chronic back pain.Add tramadol 50mg po q6h PRN. at 1317 at 2130 RPT #:[id number] OF REPORTPRProgress [id number]:56:00G.[id number] 3AVAvailable for patient wsruPWPICBYVSBKWGS8417-40-32P13:17:59 [facility] 2023-01-01 07:27:00 [id number] j mYXHz++S1by6TJvKxwoGuzFeW2aNusCX07X8985-7 07:27:00 [facility] ([facility])Cardiothoracic Surgery ProgREPORT#:[id number] REPORT STATUS: SignedDATE:01/01/23 TIME: 726 PATIENT: SHEKHAR LOZADA UNIT #: [id number]#: [id number] [address] [birth year] AGE: 52 SEX: M ATTEND: Eric Crabtree [facility] AUTHOR: Zabrina Ruiz Physic * ALL edits or amendments must be made on the electronic/computer document * SubjectiveChief complaint:Multi-vessel CAD- Eval for CAB Review of SystemsConstitutional:Denies: fatigue, fever. Skin:Denies: rash, swelling. Eyes:Denies: redness, discharge, swelling. ENT:Denies: ear drainage, ear ringing. Respiratory:Denies: SOB, wheezing. Cardiovascular:Denies: chest pain, KISER (dyspnea on exertion), edema. GI:Denies: constipation, diarrhea. :Denies: hematuria, nocturia. Musculoskeletal:Denies: joint pain, joint swelling. Heme:Denies: bleeding, bruising. Endocrine:Denies: polydipsia, polyuria. Neuro:Denies: confusion, dizziness. All systems rev neg: except as marked Objective GeneralVS/I OLast Documented: Result Date Time Pulse Ox 96 01/01 042 B/P 154/82 01/014 B/P Mean 105.6 01/02 424 Temp 97.9 01/01 0424 Pulse 73 01/01 0424 Resp 16 01/01 042 O2 Delivery Room air 12/31 1517 24 hour I O ending at 0700: 01/01 0700 12/31 1900 Intake Total 648.00 1288.00 Output Total Balance 648.00 1288.00 Intake, IV 288.00 288.00 Intake, Oral 360 1000 Number 2 Bowel Movements Number Voids 3 3 Patient 107.9 kg Weight Weight Standing scale Measurement Method PATIENT WEIGHT: Weight (lb): 237Weight (oz): 14.06Weight (kg): 107.900 Physical ExamGeneral appearance: alert, awake, orientedHEENT: anicteric, mucosal membranes moistNeck: full range of motion, non-tenderCardiovascular: BP/pulses equal bilat., regular rate rhythmRespiratory: aerating well, clear to auscultationAbdomen: soft, non-tenderExtremities: dry, moves allMusculoskeletal: full range of motion, painless range of motionNeuro/NEURO UROLOGIST: alert, oriented X 3Skin: dry, intact Quality: Trauma Gen Surg Advanced Care Plan 65 or OlderDiscussed with: patient Diagnosis, Assessment PlanHospital course to date:This is a 52-year-old gentleman with a past medical history of hypertension who initially presented to an outside hospital with complaints of back pain, and chest pains.He reports the back pain as mid upper back pain that occurred over the last couple of weeks. Usually pain is worse with changing positionThe patient reports he started to develop chest pains located midsternal for thepast 2 weeks. He denies any radiating symptoms.Describes the chest pains as a heaviness, squeezing sensation. Denies any syncope, palpitations. Denies any nausea vomiting or diaphoresis. Patient underwent left heart catheterization by Dr. Felton at [facility] this showed multivessel CAD with a 90% LAD, 60-70% left main, 70-80% circumflex. An echocardiogram was also done at [facility] on 12/28/2022. This showed a normal left ventricular ejection fraction of 55-60%, moderate LVH, mild mitral regurgitation, grade 1 diastolic dysfunction. The patient does admit to smoking 1-2 times per week. Does admit to alcohol 1-2times per week. Patient does have a strong family history of coronary artery disease in his father and his grandmother.Denies any surgical history, Review of the records from [facility] show the patient was admitted with a troponin peak of 483. Hemoglobin A1c was noted to be 5.5. Renal function appears normal. Patient was transferred to [facility] for evaluation for coronary bypass graft surgery.Hemoglobin A1c noted to be 5.5 at [facility]'s Assessment/plan1.coronary artery disease Begin work-up for coronary artery bypass graft with appropriate studies.2. Hypertension3. Chest pains Patient has been seen and examined by Dr. Crabtree. Work-up underway for coronary artery bypass graft surgery. Further recommendations to follow 12/31/22Patient resting comfortable denies pain.MKIk7Hhtdalxfujf: 100% oxygen on room air.Cardiac: Remains sinus rhythmGI: Denies constipation diarrhea positive bowel movement.: Voiding well.Carotid ultrasound shows no significant carotid artery stenosisVein mapping completeMRSA positive in the nares, on appropriate Bactroban intranasal treatment.Likely consider coronary artery bypass surgery early next week.Patient was seen and examined by Dr. Crabtree. Further recommendations to follow 01/01Patient resting comfortable denies pain.VPJb1Jwsokbqdedv: 100% oxygen on room air.Cardiac: Remains sinus rhythmGI: Denies constipation or diarrhea, positive bowel movement.: Voiding well.MRSA positive in the nares, on appropriate Bactroban intranasal treatment.Pulmonary consulted for history of smoking and abnormal CT suggestive of emphysema.PFT hopefully to be completed in the morning. STS 0.39%Patient was seen and examined by Dr. Crabtree. Further recommendations to followCoronary artery bypass graft surgery was discussed with the patient. The risk of the operation including , bleeding, infection, heart attack, stroke, pneumonia, renal failure, dialysis, prolonged ICU stay, car tracheostomy, need for long-term rehabilitation were all discussed with the patient. Patient's questions were answered and the patient agreed to proceed with surgery. at 1317 at 3070 RPT #:[id number] OF REPORTPRProgress [id number]:27:00G.[id number] 6AVAvailable for patient selgBRAVYKJIKUBDCC7917-32-69U43:17:59 [facility] 2022-12-31 10:54:00 [id number] 1 kV01oF7NoQMcMJBwgki6VnBUHLr4i/CZVPR1619-2 12-31T10:54:00 [facility] CenterCardi[facility] Surgery ProgRREHABILITATION [facility]#:[id number] REPORT STATUS: SignedDATE:12/31/22 TIME: 1054 PATIENT: SHEKHAR LOZADA UNIT #: [id number]#: [id number] [address] [birth year] AGE: 52 SEX: M ATTEND: Eric Crabtree [facility] AUTHOR: Zabrina Ruiz Physic * ALL edits or amendments must be made on the electronic/computer document * SubjectiveChief complaint:Chest painsEval for CAD Review of SystemsConstitutional:Denies: fatigue, fever. Skin:Denies: rash, swelling. Eyes:Denies: redness, discharge, swelling. ENT:Denies: ear drainage, ear ringing. Respiratory:Denies: SOB, wheezing. Cardiovascular:Denies: chest pain, KISER (dyspnea on exertion), edema. GI:Denies: constipation, diarrhea. :Denies: hematuria, nocturia. Musculoskeletal:Denies: joint pain, joint swelling. Heme:Denies: bleeding, bruising. Endocrine:Denies: polydipsia, polyuria. Neuro:Denies: confusion, dizziness. All systems rev neg: except as marked Objective GeneralVS/I OLast Documented: Result Date Time Pulse Ox 95 [...] scale Measurement Method PATIENT WEIGHT: Weight (lb): 236Weight (oz): 8.9Weight (kg): 107.300 Physical ExamGeneral appearance: alert, awakeHEENT: anicteric, mucosal membranes moistNeck: full range of motion, non-tenderCardiovascular: BP/pulses equal bilat., regular rate rhythmRespiratory: aerating well, clear to auscultationAbdomen: soft, non-tenderExtremities: dry, moves allMusculoskeletal: full range of motion, painless range of motionNeuro/NEURO UROLOGIST: alert, oriented X 3Skin: dry, intact ResultsFindings/Data:Laboratory Tests 12/31 12/30 12/30 12/30 0540 1528 [...] PT Patient/Control Mix (9.3 - 12.9 SECONDS) 11.9 Laboratory Tests 12/31 12/30 0540 1528 Hematology [...] (Auto) (14.0 - 32.0 %) 29.9 21.6 Kane % (Auto) (4.8 - 9.0 %) 11.4 H 12.7 H Eos % (Auto) (0.3 - 3.7 %) 4.3 H 2.9 Baso % (Auto) (0.0 - 2.0 %) 0.6 0.5 Neut # (Auto) (2.0 - 7.6 x10 3/uL) 3.67 3.39 Lymph # (Auto) (1.0 - 3.8 x10 3/uL) 2.06 1.19 Kane # (Auto) (0.1 - 0.8 x10 3/uL) 0.79 0.70 Eos # (Auto) (0.0 - 0.2 x10 3/uL) 0.30 H 0.16 Baso # (Auto) (0.0 - 0.2 x10 3/uL) 0.04 0.03 Abs Immat Gran (auto) (0.00 - 0.03 x10 3/uL) 0.04 H 0.03 Add Manual Diff NO NO Immature Gran % (0.0 - 2.0 %) 0.6 0.5 Nucleated RBC % (0 - 0 %) 0.0 0.0 Nucleated RBCs # (Man) (0.0 - 0.1 x10 3/uL) 0.00 0.00 Laboratory Tests 12/30 1230 Urines Urine Color (YEL/STRAW) STRAW Urine Appearance (CLEAR) CLEAR Urine pH (5.0 - 7.0) 8.0 H Ur Specific Happy (1.005 - 1.030) 1.002 L Urine Protein [...] Squamous Epith Cells (NONE SEEN /HPF) NONE SEEN Urine Bacteria (NONE SEEN /HPF) NONE SEEN Quality: Trauma Gen Surg Advanced Care Plan 65 or OlderDiscussed with: patient Diagnosis, Assessment PlanHospital course to date:This is a 52-year-old gentleman with a past medical history of hypertension who initially presented to an outside hospital with complaints of back pain, and chest pains.He reports the back pain as mid upper back pain that occurred over the last couple of weeks. Usually pain is worse with changing positionThe patient reports he started to develop chest pains located midsternal for thepast 2 weeks. He denies any radiating symptoms.Describes the chest pains as a heaviness, squeezing sensation. Denies any syncope, palpitations. Denies any nausea vomiting or diaphoresis. Patient underwent left heart catheterization by Dr. Felton at [facility] this showed multivessel CAD with a 90% LAD, 60-70% left main, 70-80% circumflex. An echocardiogram was also done at [facility] on 12/28/2022. This showed a normal left ventricular ejection fraction of 55-60%, moderate LVH, mild mitral regurgitation, grade 1 diastolic dysfunction. The patient does admit to smoking 1-2 times per week. Does admit to alcohol 1-2times per week. Patient does have a strong family history of coronary artery disease in his father and his grandmother.Denies any surgical history, Review of the records from [facility] show the patient was admitted with a troponin peak of 483. Hemoglobin A1c was noted to be 5.5. Renal function appears normal. Patient was transferred to [facility] for evaluation for coronary bypass graft surgery.Hemoglobin A1c noted to be 5.5 at [facility]' Assessment/plan1.coronary artery disease Begin work-up for coronary artery bypass graft with appropriate studies.2. Hypertension3. Chest pains Patient has been seen and examined by Dr. Crabtree. Work-up underway for coronary artery bypass graft surgery. Further recommendations to follow 12/31/22Patient resting comfortable denies pain.YPAy4Wyjdldeouch: 100% oxygen on room air.Cardiac: Remains sinus rhythmGI: Denies constipation diarrhea positive bowel movement.: Voiding well.Carotid ultrasound shows no significant carotid artery stenosisVein mapping completeMRSA positive in the nares, on appropriate Bactroban intranasal treatment.Likely consider coronary artery bypass surgery early next week.Patient was seen and examined by Dr. Crabtree. Further recommendations to follow at 1100 at 1555 RPT #:[id number] OF REPORTPRProgress [id number]:54:00G.[id number] 5AVAvailable for patient [id number]:36:45 [facility] 2022-12-31 08:38:00 [id number]/4PtKgDCmy b NJnjq60fk13FBfmmtePnq+ni2TYkE+qqOIs0441-3 08:38:00 [facility] ([facility])Cardiology Progress NoteREPORT#:[id number] REPORT STATUS: SignedDATE:12/31/22 TIME: 08 PATIENT: SHEKHAR LOZADA UNIT #: [id number]#: [id number] [address] [birth year] AGE: 52 SEX: M ATTEND: Eric Crabtree [facility] AUTHOR: Juanis Blevins AGACNP * ALL edits or amendments must be made on the electronic/computer document * SubjectivePatient reports:No: chest pain, shortness of breath. Objective GeneralVS/I O:24 hour I O ending at 0700: 12/31 0700 12/30 1900 Intake Total 440.00 Output Total Balance 440.00 Intake, IV 200.00 Intake, Oral 240 Number 1 Bowel Movements Number Voids 5 Patient 107.3 kg 100.6 kg Weight Weight Standing scale Standing scale Measurement Method Vital Signs: Date Time Temp Pulse Resp B/P B/P Pulse O2 O2 Flow FiO2 Mean Ox Delivery Rate 12/31 0731 [...] 207/108 150 96 PATIENT WEIGHT: Weight (lb): 236Weight (oz): 8.9Weight (kg): 107.300 Medications:Active Meds + DC'd Last 24 HrsAspirin (ASPIRIN) 81 MG DAILY PO Atorvastatin Calcium (LIPITOR) 40 MG 2100 PO Carvedilol (COREG) 6.25 MG BID PO Mupirocin (BACTROBAN 2% 22 GM OINTMENT) 1 APPLIC BID NASAL Albuterol Sulfate (ALBUTEROL SULFATE) 2.5 MG RTONCE ONE NEB (DC) Heparin Sodium (HEPARIN 5000 UNITS/ML) 0 ASDIR PRN IV Heparin Sodium (Porcine) (HEPARIN 25,000 UNITS/ 1/2NS 500ML) 500 ML ASDIR IV (CKD) Heparin Sodium (HEPARIN 5000 UNITS/ML) 4,000 UNIT ONCE STA IV (DC) Carvedilol (COREG) 6.25 MG ONCE ONE PO (DC) Hydralazine HCl (APRESOLINE) 10 MG Q6H PRN PRN IV Hydralazine HCl (APRESOLINE) 10 MG Q6H PRN PRN PO (DC) Acetaminophen (TYLENOL) 650 MG Q4H PRN PRN PO Amlodipine Besylate (NORVASC) 5 MG DAILY PO Hydrocodone Bitart/Acetaminophen (NORCO 5/325) 1 TAB Q6H PRN PRN PO Physical ExamGeneral appearance: alert, awake, orientedNeck: non-tender, no bruit/NL carotidsCardiovascular: CV assessment: regular rate and rhythmRespiratory: wheezing (expiratory), no distressAbdomen: non-tender, obeseGenitourinary: no flank pain, no urinary catheterLower extremity: LE assessment: no calf tenderness, no edemaMusculoskeletal: normal inspectionNeuro/NEURO UROLOGIST: alert, oriented X 3, normal speechSkin: dry, intact, normal colorPsychiatry: normal affect, normal mood ResultsFindings/Data:Laboratory Tests 12/31 12/30 12/30 12/30 0540 1528 [...] PT Patient/Control Mix (9.3 - 12.9 SECONDS) 11.9 Laboratory Tests 12/31 12/30 0540 1528 Hematology [...] (Auto) (14.0 - 32.0 %) 29.9 21.6 Kane % (Auto) (4.8 - 9.0 %) 11.4 H 12.7 H Eos % (Auto) (0.3 - 3.7 %) 4.3 H 2.9 Baso % (Auto) (0.0 - 2.0 %) 0.6 0.5 Neut # (Auto) (2.0 - 7.6 x10 3/uL) 3.67 3.39 Lymph # (Auto) (1.0 - 3.8 x10 3/uL) 2.06 1.19 Kane # (Auto) (0.1 - 0.8 x10 3/uL) 0.79 0.70 Eos # (Auto) (0.0 - 0.2 x10 3/uL) 0.30 H 0.16 Baso # (Auto) (0.0 - 0.2 x10 3/uL) 0.04 0.03 Abs Immat Gran (auto) (0.00 - 0.03 x10 3/uL) 0.04 H 0.03 Add Manual Diff NO NO Immature Gran % (0.0 - 2.0 %) 0.6 0.5 Nucleated RBC % (0 - 0 %) 0.0 0.0 Nucleated RBCs # (Man) (0.0 - 0.1 x10 3/uL) 0.00 0.00 Laboratory Tests 12/30 1230 Urines Urine Color (YEL/STRAW) STRAW Urine Appearance (CLEAR) CLEAR Urine pH (5.0 - 7.0) 8.0 H Ur Specific Happy (1.005 - 1.030) 1.002 L Urine Protein [...] Squamous Epith Cells (NONE SEEN /HPF) NONE SEEN Urine Bacteria (NONE SEEN /HPF) NONE SEEN Laboratory Tests 12/31 12/30 0540 1528 Chemistry Magnesium (1.80 - 2.40 mg/dL) 2.20 B-Natriuretic Peptide (0 - 100 PG/ML) 81.0 Radiology data:Recent Impressions:CAT SCAN - CT CHEST W/O CONTRAST 12/30 [...] Pulmonary Nodules Detected on CT Images: From the Fleischner Society 2017. Radiology. 2017;284(1):228-243. Impression By: [id number] - Janis Jeffries M.D.RADIOLOGY - XR CHEST 2 V 12/30 1002 Report Impression - Status: SIGNED Entered: 12/30/2022 1528 IMPRESSION: No radiographically identified acute findings in the chest. Impression By: [id number] - Francisca Lares M.D.ULTRASOUND - DUP VEIN ALEXY 12/30 1100 Report Impression - Status: SIGNED Entered: 12/30/2022 1205 IMPRESSION: 1. Greater saphenous veins are patent bilaterally.2. Bilateral lower extremity vein mapping as above. Impression By: [email or web address] - Fernando Valdez M.D.ULTRASOUND - DUP EXTRACRANIAL ALEXY 12/30 1100 Report Impression - Status: SIGNED Entered: 12/30/2022 1158 IMPRESSION: No carotid arterial stenosis. REFERENCES: SRU CRITERIA. The degree of internal carotid artery stenosis is based on criteria defined by the Society of Radiologists in Ultrasound (SRU). Normal is no stenosis. Mild is less than 50% stenosis. Moderate is 50-69% stenosis. Severe is greater than 69% stenosis to near occlusion. Near occlusion is a markedly narrowed lumen. Total occlusion is no detectable patent lumen. Impression By: Isabella Woods M.D. Results: labs reviewed, vital signs reviewed, rhythm personally rev'dTelemetry Interpretation:sinus rhythm Diagnosis, Assessment PlanPlan discussed with: patient, nurse Free Text DxA P NotesFree Text DxA P Notes:52-year-old male with medical history of hypertension, lifelong smoker,alcohol use who presents to ED at [facility] with back pain and chest pain. He was ruled in for non-STEMI. Taken to [facility] where he was found to have multivessel CAD with tight left main. Patient is transferred here for CABG evaluation. He is not having active chest pain. His main complaint is back pain and headache. His blood pressure is markedly elevated at the time of visit,208/111 mmHg. 1. NSTEMI/multivessel CAD with left main diseaseCTS evaluation, CABG preoperative work-up ongoingcontinue aspirin 81 mg daily, atorvastatin 40 mg daily, carvedilol 12.5 mg twicedaily continue Heparin drip ACS protocol 2. Hypertensive urgencyBP trend better but still suboptimal, BP trend 159-207/64-108 mmHgup carvedilol to 12.5 mg BID, continue amlodipine 5 mg dailycontinue IV hydralazine 10 mg Q6H PRN for SBP > 170 mmHgMonitor blood pressure closely and adjust meds as needed 3. Tobacco and alcohol useCounseled cessationCT chest showed mild emphysema and pulmonary nodulePatient may need pulmonary consultation -defer to CTS at 1011 at 1311 RPT #:[id number] OF REPORTPRProgress [id number]:38:00G.[id number] 8AVAvailable for patient wfxrGUSUYBIVCMZKYY6261-87-50V30:11:20 [facility] 2022-12-30 11:11:00 [id number]+w q q0K2fbLe1bM90C/pY87aL7sorMcg0il/ijo6156-6 12-30T11:11:00 [facility] ([facility])Cardiology ConsultationREPORT#:[id number] REPORT STATUS: SignedDATE:12/30/22 TIME: 1111 PATIENT: SHEKHAR LOZADA UNIT #: [id number]#: [id number] [address]OB: [birth year] AGE: 52 SEX: M ATTEND: Eric Crabtree MDADM AUTHOR: Juanis Blevins * ALL edits or amendments must be made on the electronic/computer document * History of Present Illness HPIRequesting Clinician: Zabrina Medley for consult:CAD, CABG workupChief complaint:Back painPCP:PCP: Eric Crabtree MD HPI:52-year-old male with medical history of hypertension, lifelong smoker,alcohol use who presents to ED at [facility] with back pain and chest pain. He was ruled in for non-STEMI. Taken to [facility] where he was found to have multivessel CAD with tight left main. Patient is transferred here for CABG evaluation. He is not having active chest pain. His main complaint is back pain and headache. His blood pressure is markedly elevated at the time of visit,208/111 mmHg. History - Adult longitudinalPast medical history:Reports: Hypertension. Denies: Diabetes mellitus. 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 Review of SystemsAdditional notes:As stated in HPI Objective GeneralVS/I O:Vital Signs: Date Time Temp Pulse Resp B/P B/P Pulse O2 O2 Flow FiO2 Mean Ox Delivery Rate 12/30 0739 [...] Stated/Reported Measurement Method PATIENT WEIGHT: Weight (lb): 238Weight (oz): 1.59Weight (kg): 108.000 Medications:Active Meds + DC'd Last 24 HrsHydralazine HCl (APRESOLINE) 10 MG Q6H PRN PRN PO Acetaminophen (TYLENOL) 650 MG Q4H PRN PRN PO Amlodipine Besylate (NORVASC) 5 MG DAILY PO Hydrocodone Bitart/Acetaminophen (NORCO 5/325) 1 TAB Q6H PRN PRN PO Hydrocodone Bitart/Acetaminophen (NORCO 5/325) 1 TAB ONCE ONE PO (DC) Physical ExamGeneral appearance: obese, alert, awakeNeck: non-tender, no bruit/NL carotidsCardiovascular: CV assessment: regular rate and rhythmRespiratory: shortness of breath, no distressAbdomen: non-tender, obeseGenitourinary: no flank pain, no urinary catheterLower extremity: LE assessment: no calf tenderness, no edemaMusculoskeletal: normal inspectionNeuro/NEURO UROLOGIST: alert, oriented X 3, normal speechSkin: dry, intact, normal colorPsychiatry: normal affect, normal mood ResultsFindings/Data:Laboratory Tests 12/30 1230 Urines Urine Color (YEL/STRAW) STRAW Urine Appearance (CLEAR) CLEAR Urine pH (5.0 - 7.0) 8.0 H Ur Specific Happy (1.005 - 1.030) 1.002 L Urine Protein [...] Squamous Epith Cells (NONE SEEN /HPF) NONE SEEN Urine Bacteria (NONE SEEN /HPF) NONE SEEN Radiology Data:Recent Impressions:CAT SCAN - CT CHEST W/O CONTRAST 12/30 1330 Report Impression - Status: SIGNED Entered: 12/30/2022 [...] Pulmonary Nodules Detected on CT Images: From the Fleischner Society 2017. Radiology. 2017;284(1):228-243. Impression By: Krystal - Janis Jeffries M.D. Results: labs reviewed, vital signs reviewed, EKG personally reviewed, rhythm personally rev'dTelemetry Interpretation:sinus rhythm Diagnosis, Assessment PlanProblem List/A P: 1. Non-STEMI (non-ST elevated myocardial infarction) 2. Coronary artery disease due to calcified coronary lesion 3. Hypertension Plan discussed with: patient, collaborating MD, consultants (CTS) Free Text DxA P NotesFree Text DxA P Notes:52-year-old male with medical history of hypertension, lifelong smoker,alcohol use who presents to ED at [facility] with back pain and chest pain. He was ruled in for non-STEMI. Taken to [facility] where he was found to have multivessel CAD with tight left main. Patient is transferred here for CABG evaluation. He is not having active chest pain. His main complaint is back pain and headache. His blood pressure is markedly elevated at the time of visit,208/111 mmHg. 1. NSTEMI/multivessel CAD with left main diseaseCTS evaluation, CABG preoperative work-up ongoingStart aspirin 80 mg daily, atorvastatin 40 mg daily, add carvedilol 6.25 mg twice daily for BP controlStart heparin drip ACS protocol 2. Hypertensive urgencyStart carvedilol 6.25 mg twice a day, first dose nowContinue amlodipine 10 mg dailyAdd IV hydralazine 10 mg Q6H PRN for SBP > 170 mmHgMonitor blood pressure closely and adjust meds as needed 3. Tobacco and alcohol useCounseled cessationCT chest showed mild emphysema and pulmonary nodulePatient may need pulmonary consultation -defer to CTS Appreciate the referral. at 1411 at 1726 RPT #:[id number] OF REPORTRJRkjszcllhokq1184-67-34U87:11:0 0G.[id number] for patient dtohJEEFUQIQZLUJFH3588-63-94T68:12:00 [facility] 2022-12-30 09:33:00 [id number] x pF9VZJ1pSIuAPLzCbOnFIq+e5MPiP5TbJea2071-3 09:33:00 [facility] ([facility])History Physical - AdultREPORT#:[id number] REPORT STATUS: SignedDATE:12/30/22 TIME: 932 PATIENT: SHEKHAR LOZADA UNIT #: [id number]#: [id number] [address] [birth year] AGE: 52 SEX: M ATTEND: Eric Crabtree [facility] AUTHOR: Zabrina Ruiz * ALL edits or amendments must be made on the electronic/computer document * Zabrina Ruiz 12/30/22 0933:History of Present Illness HPIChief complaint:CAD, Chest pains. HPI:This is a 52-year-old gentleman with a past medical history of hypertension who initially presented to an outside hospital with complaints of back pain, and chest pains.He reports the back pain as mid upper back pain that occurred over the last couple of weeks. Usually pain is worse with changing positionThe patient reports he started to develop chest pains located midsternal for thepast 2 weeks. He denies any radiating symptoms.Describes the chest pains as a heaviness, squeezing sensation. Denies any syncope, palpitations. Denies any nausea vomiting or diaphoresis. Patient underwent left heart catheterization by Dr. Felton at [facility] this showed multivessel CAD with a 90% LAD, 60-70% left main, 70-80% circumflex. An echocardiogram was also done at [facility] on 12/28/2022. This showed a normal left ventricular ejection fraction of 55-60%, moderate LVH, mild mitral regurgitation, grade 1 diastolic dysfunction. The patient does admit to smoking 1-2 times per week. Does admit to alcohol 1-2times per week. Patient does have a strong family history of coronary artery disease in his father and his grandmother.Denies any surgical history, Review of the records from [facility] show the patient was admitted with a troponin peak of 483. Hemoglobin A1c was noted to be 5.5. Renal function appears normal. Patient was transferred to [facility] for evaluation for coronary bypass graft surgery. HistoryAdditional medical history:HypertensionAdditional surgical history:UnremarkableAdditional family history:Coronary artery disease in his father, grandmother with coronary artery bypassSmoking status for patients 13 years old or older: Current some day smokerDate last smoked: 12/14/22Packs per day: 8Pack years: 0 Medication/Allergy-Vaccine HxAllergies:Coded Allergies:No Known Allergies (12/30/22) Review of SystemsConstitutional:Denies: fatigue, fever, generalized weakness. Skin:Denies: rash, swelling. Allergy/Immun:Denies: rhinorrhea, sneezing. Eyes:Denies: discharge, diplopia, photophobia. ENT:Denies: ear drainage, ear ringing. Respiratory:Denies: productive cough (sputum), SOB. Cardiovascular:Reports: chest pain. Denies: KISER (dyspnea on exertion). GI:Denies: constipation, diarrhea. :Denies: dysuria, hematuria. Heme:Denies: bleeding, bruising. Endocrine:Denies: polydipsia, polyuria. Neuro:Denies: confusion, dizziness. Psych:Denies: anxiety, depression. All systems rev neg: except as marked Physical ExamVS/I OVital Signs: Date Time Temp Pulse Resp B/P B/P Pulse O2 O2 Flow FiO2 Mean Ox Delivery Rate 12/30 0739 [...] Stated/Reported Measurement Method PATIENT WEIGHT: Weight (lb): 238Weight (oz): 1.59Weight (kg): 108.000 General appearance: alert, awakeHead/Eyes: atraumatic, clear corneaCardiovascular: normal capillary refill, regular rate rhythmRespiratory: clear to auscultation, no distressAbdomen/GI: active bowel sounds, softExtremities: moves all, no edema-all extremitiesMusculoskeletal: full range of motion, normal inspectionNeuro/NEURO UROLOGIST: alert, oriented X 3Skin: dry Diagnosis, Assessment Plan Free Text DxA P NotesFree Text DxA P Notes:This is a 52-year-old gentleman with a past medical history of hypertension who initially presented to an outside hospital with complaints of back pain, and chest pains.He reports the back pain as mid upper back pain that occurred over the last couple of weeks. Usually pain is worse with changing positionThe patient reports he started to develop chest pains located midsternal for thepast 2 weeks. He denies any radiating symptoms.Describes the chest pains as a heaviness, squeezing sensation. Denies any syncope, palpitations. Denies any nausea vomiting or diaphoresis. Patient underwent left heart catheterization by Dr. Felton at [facility] this showed multivessel CAD with a 90% LAD, 60-70% left main, 70-80% circumflex. An echocardiogram was also done at [facility] on 12/28/2022. This showed a normal left ventricular ejection fraction of 55-60%, moderate LVH, mild mitral regurgitation, grade 1 diastolic dysfunction. The patient does admit to smoking 1-2 times per week. Does admit to alcohol 1-2times per week. Patient does have a strong family history of coronary artery disease in his father and his grandmother.Denies any surgical history, Review of the records from [facility] show the patient was admitted with a troponin peak of 483. Hemoglobin A1c was noted to be 5.5. Renal function appears normal. Patient was transferred to [facility] for evaluation for coronary bypass graft surgery.Hemoglobin A1c noted to be 5.5 at [facility]'s Assessment/plan1.coronary artery disease Begin work-up for coronary artery bypass graft with appropriate studies.2. Hypertension3. Chest pains Patient has been seen and examined by Dr. Crabtree. Work-up underway for coronary artery bypass graft surgery. Further recommendations to follow Eric Crabtree 12/31/22 0951:Attestations Physician AttestationAgree w/findings plan:I have seen and examined Mr. Lozada. I agree with the findings and plan as documented by MARY Erickson. Briefly, 52-year-old gentleman with severe coronary artery disease transferred to [facility] for surgical evaluation. I had a long discussion with the patient, explained to them angiogram finding and need for coronary artery bypass graft surgery. I have discussed with him the procedure, risk involved, benefit, alternatives, STS risk score, and complications. Patient verbalized understanding the risk. at 0941 at 0952 RPT #:[id number] OF REPORTHPHistory and physical [id number]:33:00G.[id number] for patient hnnqOTWYFLQOBENVYK7287-38-40Z45:41:50 [facility]
[2024-04-03 00:12] LABS: Protime INR 1.09
[2024-04-03 00:13] LABS: Absolute Basophils 0.1 K/uL (0-0.5); Absolute Eosinophils 0.7 K/uL (0-0.5); Absolute Lymphocytes (CBC) 1.7 K/uL (0.7-4.9); Absolute Monocytes 0.9 K/uL (0.1-1.3); Absolute Neutrophil 7.6 K/uL (1.8-8.0); Basophils % 0.7 % (0-1.3); Eosinophils % 6.1 % (0-4.4); Hematocrit 42.2 % (39.6-49.0); Hemoglobin 14.1 g/dL (13.6-17.9); Lymphocytes % 15.2 % (15.3-44.8); MCH 31.4 pg (27.0-35.0); MCHC 33.4 g/dL (32.0-36.0); MCV 94.1 fL (80-100); MPV 8.1 fL (7.6-11.3); Monocytes % 8.7 % (3.3-12.3); Neutrophils % 69.3 % (41.7-73.7); Platelets 254 thou/uL (152-406); RBC Red Blood Cell Count 4.48 M/uL (4.33-5.43); Red Cell Distribution Width 13.3 % (12.1-15.2)
[2024-04-03 00:29] LABS: SARS-CoV-2 Antigen CONTROL BLUE LINE VIS/BG OK; SARS-CoV-2 Antigen Rapid Res Negative (Negative)
[2024-04-03] MEDS ORDERED: METOCLOPRAMIDE 10 MG/2mL INJ ONE (00:34)
[2024-04-03] MEDS ORDERED: DIPHENHYDRAMINE 50 MG/ML VIAL ONE (00:34)
[2024-04-03] MEDS ORDERED: KETOROLAC 30 MG/ML INJ ONE (00:34)
[2024-04-03] MEDS ORDERED: MORPHINE 4 MG/ML SYR ONE (00:35)
[2024-04-03] MEDS ORDERED: ONDANSETRON 4 MG/2 ML VIAL ONE (00:35)
[2024-04-03] MEDS ORDERED: MORPHINE 2 MG/ML SYR ONE (00:36)
[2024-04-03 00:46] LABS: Albumin 3.4 g/dL (3.4-5.0); Albumin/Globulin Ratio 0.9 (1.1-1.8); Anion Gap 7.9 mEq/L (5.0-15.0); Bilirubin Direct 0.2 mg/dL (0-0.2); Bilirubin Indirect, Calculated 0.2 mg/dL (0.2-0.8); Bilirubin Total 0.4 mg/dL (0.2-1.0); Globulin 3.6 g/dL (2.3-3.5); Magnesium 2.3 mg/dL (1.6-2.4); Potassium 3.9 mEq/L (3.5-5.1)
[2024-04-03 00:53] LABS: Troponin High Sensitivity 65.5 pg/mL (<58.9)
[2024-04-03] MEDS ORDERED: HYDRALAZINE HCL 25 MG TABLET ONE (01:44)
[2024-04-03] MEDS ORDERED: FUROSEMIDE 40 MG/4 ML VIAL ONE (01:44)
--- NOTE | 2024-04-03 01:48 | ER ---
Nurse's Notes [facility] Name: Zay Werner Jr Age: 53 yrs Sex: Male : 1970 Arrival Date: 04/02/2024 Time: 22:58 Bed 7 Private MD: Diagnosis: Acute on chronic diastolic (congestive) heart failure;Essential (primary) hypertension;NSTEMI, diastolic heart failure, pulmonary edema, hypertensive urgency Presentation: 04/02 23:25 Chief complaint: Patient states: SOB started 2 days ago, back pain that started today, as6 pt also reports cough and congestion. Coronavirus screen: At this time, the client does not indicate any symptoms associated with coronavirus-19. Ebola Screen: No symptoms or risks identified at this time. Initial Sepsis Screen: Does the patient meet any 2 criteria? No. Patient's initial sepsis screen is negative. Does the patient have a suspected source of infection? No. Patient's initial sepsis screen is negative. Risk Assessment: Do you want to hurt yourself or someone else? Patient reports no desire to harm self or others. Onset of symptoms was April 02, 2024. 23:25 Method Of Arrival: Ambulatory as6 23:25 Acuity: UMBERTO 3 as6 Triage Assessment: 23:28 General: Appears in no apparent distress. Behavior is calm, cooperative. Pain: as6 Complains of pain in back Quality of pain is described as aching. Respiratory: Reports shortness of breath cough that is. 04/03 05:04 Respiratory: Onset: The symptoms/episode began/occurred 2 days ago, the patient has ha1 moderate shortness of breath. Historical: - Allergies: 04/02 23:27 No Known Allergies; as6 - PMHx: 23:27 Hypertension; as6 - PSHx: 23:27 Bipass; as6 - Immunization history:: Adult Immunizations up to date. - Infectious Disease History:: Denies. - Social history:: Smoking status: Patient denies any tobacco usage or history of. Screenin/19 00:20 [facility] ED Fall Risk Assessment (Adult) History of falling in the last 3 months, ha1 including since admission No falls in past 3 months (0 pts) Confusion or Disorientation No (0 pts) Intoxicated or Sedated No (0 pts) Impaired Gait No (0 pts) Mobility Assist Device Used No (0 pt) Altered Elimination No (0 pt) Score/Fall Risk Level 0 - 2 = Low Risk Oriented to surroundings, Maintained a safe environment, Educated pt \T\ family on fall prevention, incl call for assistance when getting out of bed, Hourly rounding (assess needs \T\ fall precautionary measures) done. Abuse screen: Denies threats or abuse. Denies injuries from another. Nutritional screening: No deficits noted. Tuberculosis screening: No symptoms or risk factors identified. Assessment: 04/02 23:50 General: Appears uncomfortable, Behavior is calm, cooperative. Pain: Complains of pain ha1 in back and head Pain does not radiate. Pain currently is 8 out of 10 on a pain scale. Quality of pain is described as aching, heavy, pressure. Neuro: Level of Consciousness is awake, alert, obeys commands, Oriented to person, place, time, situation. Cardiovascular: Capillary refill < 3 seconds Patient's skin is warm and dry. Rhythm is sinus bradycardia. Respiratory: Reports cough that is non-productive, dry, Airway is patent Respiratory effort is even, unlabored, Respiratory pattern is regular, symmetrical, Breath sounds are clear bilaterally. GI: No signs and/or symptoms were reported involving the gastrointestinal system. GI: Abdomen is round non-distended, obese. : No signs and/or symptoms were reported regarding the genitourinary system. Derm: Skin is pink, warm \T\ dry. Musculoskeletal: Circulation, motion, and sensation intact. Range of motion: intact in all extremities. 04/03 00:00 Reassessment: going to CT. ha1 00:50 Reassessment: Patient and/or family updated on plan of care and expected duration. Pain ha1 level reassessed. Patient is alert, oriented x 3, equal unlabored respirations, skin warm/dry/pink. 00:52 General: TROPONIN 65.5. lc8 01:08 Reassessment: Patient and/or family updated on plan of care and expected duration. Pain ha1 level reassessed. Patient is alert, oriented x 3, equal unlabored respirations, skin warm/dry/pink. pain 2/10 Patient states feeling better. Patient states symptoms have improved. 02:00 Reassessment: Patient and/or family updated on plan of care and expected duration. Pain ha1 level reassessed. Patient is alert, oriented x 3, equal unlabored respirations, skin warm/dry/pink. 03:00 Reassessment: Patient and/or family updated on plan of care and expected duration. Pain ha1 level reassessed. Patient is alert, oriented x 3, equal unlabored respirations, skin warm/dry/pink. 04:00 Reassessment: report given to PIYUSH Castano. ha1 04:47 Reassessment: Patient and/or family updated on plan of care and expected duration. Pain ha1 level reassessed. Patient is alert, oriented x 3, equal unlabored respirations, skin warm/dry/pink. awaiting on transfer. Vital Signs: 04/02 23:25 BP 206 / 106; Pulse 66; Resp 20; Temp 97.5; Pulse Ox 94% ; Weight 113.4 kg; Height 5 as6 ft. 5 in. ; Pain 03/25; 04/03 01:00 BP 174 / 89; Pulse 59; Resp 17 S; Pulse Ox 96% on R/A; ha1 02:00 BP 153 / 85; Pulse 59; Resp 17 S; Pulse Ox 94% on R/A; ha1 03:00 BP 148 / 77; Pulse 59; Resp 19 S; Pulse Ox 94% on R/A; ha1 04:05 BP 143 / 85; Pulse 58; Resp 17 S; Pulse Ox 93% on R/A; ha1 05:01 BP 144 / 83; Pulse 59; Resp 17 S; Temp 97.8(T); Pulse Ox 95% on R/A; ha1 04/02 23:25 Body Mass Index 41.60 (113.40 kg, 165.1 cm) as6 04/02 23:25 Pain Scale: Adult as6 [place] Coma Score: 01:48 Eye Response: spontaneous(4). Motor Response: obeys commands(6). Verbal Response: sp4 oriented(5). Total: 15. ED Course: 04/02 23:01 Patient arrived in ED. mr 23:03 Kishore oKroma MD is Attending Physician. sp4 23:27 Triage completed. as6 23:27 Arm band placed on. as6 23:46 SARS RAPID Sent. as6 23:46 Basic Metabolic Panel Sent. as6 23:46 CBC with Diff Sent. as6 23:46 LFT's Sent. as6 23:46 Magnesium Sent. as6 23:46 NT PRO-BNP Sent. as6 23:46 PT-INR Sent. as6 23:46 Troponin HS Sent. as6 23:46 Inserted saline lock: 20 gauge in left antecubital area, using aseptic technique. Blood as6 collected. 23:50 Patient has correct armband on for positive identification. Placed in gown. Bed in low ha1 position. Call light in reach. Side rails up X 1. 23:57 XRAY Chest (1 view) In Process Unspecified. EDMS 04/03 00:35 CT Head Brain wo Cont In Process Unspecified. EDMS 02:08 [facility] contacted to initiate transfer, Spoke with david. ty 02:24 [facility] called advising [facility], is patient okay ty with going to [facility]. Pt. was asked if [facility] is okay fro transport. Pt. stated he does not mind where he goes just wants to be treated for diagnoses. 04:20 [facility] no truck available until 0600. [facility] ambulance ETA 30 Minutes. ty 05:02 No provider procedures requiring assistance completed. Patient transferred, IV remains ha1 in place. 05:03 Provided Education on: need for transfer . ha1 Administered Medications: 00:40 Drug: Ondansetron IVP 4 mg IVP once; over 2 minutes Route: IVP; Site: left antecubital; ha1 01:00 Follow up: Response: No adverse reaction ha1 00:42 Drug: diphenhydrAMINE IVP 25 mg IVP once Route: IVP; Site: left antecubital; ha1 01:00 Follow up: Response: No adverse reaction; Marked relief of symptoms ha1 00:45 Drug: Ketorolac IVP 30 mg IVP once Route: IVP; Site: left antecubital; ha1 01:00 Follow up: Response: No adverse reaction; Marked relief of symptoms ha1 00:50 Drug: metoCLOPramide IVP 10 mg IVP once; over 1 to 2 minutes Route: IVP; Site: left ha1 antecubital; 01:00 Follow up: Response: No adverse reaction; Marked relief of symptoms ha1 00:53 Drug: morphine IVP or IV 6 mg IVP once over 4 mins Route: IVP; Infused Over: 4 mins; ha1 Site: left antecubital; 01:05 Follow up: Response: No adverse reaction; Marked relief of symptoms; Pain is decreased; ha1 RASS: Alert and Calm (0) 01:46 Drug: HydrALAZINE PO 50 mg PO once Route: PO; lc8 02:00 Follow up: Response: No adverse reaction ha1 01:47 Drug: Furosemide IVP 40 mg IVP once; give over 2 minutes Route: IVP; Site: right lc8 antecubital; 02:30 Follow up: Response: No adverse reaction ha1 02:02 Drug: [place] PO 10 mg-325 mg 1 tabs PO once Route: PO; ha1 02:30 Follow up: Response: No adverse reaction ha1 02:03 Not Given (Physician Discretion): [id number] mg/kg Sub-Q once ha1 02:03 Drug: Enoxaparin Sub-Q 100 mg Sub-Q once Route: Sub-Q; Site: abdomen; ha1 02:30 Follow up: Response: No adverse reaction ha1 Medication: 05:04 VIS not applicable for this client. ha1 Outcome: 01:47 ER care complete, transfer ordered by MD. corona 05:02 Transferred by ground EMS Transfer form completed. X-rays sent w/ patient. Note: [address] 05:02 Condition: stable 05:02 Instructed on the need for transfer, Demonstrated understanding of instructions, 05:04 Patient left the ED. ha1 Signatures: Dispatcher [employer] EDMA Celine Hendrickson, Reg Reg Ricki Lynne RN RN as6 Junie Villar RN RN ha1 Kishore Koroma MD MD sp4 Anjel Carson LaBrisha, RN RN lc8 Corrections: (The following items were deleted from the chart) 02:38 02:[address] [facility] called advising [facility], is patient ty okay with going to [facility]. Pt. asked if [facility] is okay Pt. stated he does not mind where he goes just wants to be treated for diagnoses ty
--- NOTE | 2024-04-03 01:48 | EDPHYS ---
Physician Documentation [facility] Name: Zay Werner Jr Age: 53 yrs Sex: Male : 1970 Arrival Date: 04/02/2024 Time: 22:58 Bed 7 Private MD: ED Physician Kishore Koroma HPI: 04/02 23:03 This 53 yrs old Male presents to ER via Unassigned with complaints of Cough, sp4 Shortness Of Breath, Head pain radiates to back. Historical: - Allergies: 23:27 No Known Allergies; as6 - PMHx: 23:27 Hypertension; as6 - PSHx: 23:27 Bipass; as6 - Immunization history:: Adult Immunizations up to date. - Infectious Disease History:: Denies. - Social history:: Smoking status: Patient denies any tobacco usage or history of. ROS: 04/03 01:48 Constitutional: Negative for fever, chills, and weight loss, positive cough, positive sp4 shortness of breath , Positive back pain, headache, neck pain All other systems are negative, Exam: 01:43 ECG was reviewed by the Attending Physician. EEG time 0102 sinus bradycardia at the sp4 rate of 59 , left axis deviation , right bundle branch block but otherwise normal 01:48 Constitutional: This is a well developed, well nourished patient who is awake, alert, sp4 and in no acute distress. Overweight male visibly short of breath Head/Face: Normocephalic, atraumatic. Eyes: Pupils equal round and reactive to light, extra-ocular motions intact. Lids and lashes normal. Conjunctiva and sclera are not injected. Cornea within normal limits. Periorbital areas with no swelling, redness, or edema. ENT: Nares patent. No nasal discharge, no septal abnormalities noted. Tympanic membranes are normal and external auditory canals are clear. Oropharynx with no redness, swelling, or masses, exudates, or evidence of obstruction, uvula midline. Mucous membranes moist. Neck: Trachea midline, no thyromegaly or masses palpated, and no cervical lymphadenopathy. Supple, full range of motion without nuchal rigidity, or vertebral point tenderness. positive JVD Chest/axilla: Normal chest wall appearance and motion. Nontender with no deformity. No lesions are appreciated. Cardiovascular: Regular rate and rhythm with a normal S1 and S2. No gallops, murmurs, or rubs. Normal PMI, positive JVD . No pulse deficits. Respiratory: Lungs have equal breath sounds bilaterally, clear to auscultation and percussion. No rales, rhonchi or wheezes noted. No increased work of breathing, no retractions or nasal flaring. Abdomen/GI: Soft, with normal bowel sounds. No distension or tympany. No guarding or rebound. No evidence of tenderness throughout. Back: No spinal tenderness. No costovertebral tenderness. Skin: Warm, dry with normal turgor. Normal color with no rashes, no lesions, and no evidence of cellulitis. MS/ Extremity: Pulses equal, no cyanosis. Neurovascular intact. Full, normal range of motion. Neuro: Awake and alert, GCS 15, oriented to person, place, time, and situation. Cranial nerves II-XII grossly intact. Motor strength 5/5 in all extremities. Sensory grossly intact. Psych: Awake, alert, with orientation to person, place and time. Behavior, mood, and affect are within normal limits Vital Signs: 04/02 23:25 BP 206 / 106; Pulse 66; Resp 20; Temp 97.5; Pulse Ox 94% ; Weight 113.4 kg; Height 5 as6 ft. 5 in. ; Pain 6/10; 04/03 01:00 BP 174 / 89; Pulse 59; Resp 17 S; Pulse Ox 96% on R/A; ha1 02:00 BP 153 / 85; Pulse 59; Resp 17 S; Pulse Ox 94% on R/A; ha1 03:00 BP 148 / 77; Pulse 59; Resp 19 S; Pulse Ox 94% on R/A; ha1 04:05 BP 143 / 85; Pulse 58; Resp 17 S; Pulse Ox 93% on R/A; ha1 05:01 BP 144 / 83; Pulse 59; Resp 17 S; Temp 97.8(T); Pulse Ox 95% on R/A; ha1 04/02 23:25 Body Mass Index 41.60 (113.40 kg, 165.1 cm) as6 04/02 23:25 Pain Scale: Adult as6 [place] Coma Score: 01:48 Eye Response: spontaneous(4). Motor Response: obeys commands(6). Verbal Response: sp4 oriented(5). Total: 15. MDM: 04/02 23:50 Patient medically screened. sp4 04/03 00:34 ED course: EXAM DESCRIPTION: Chest Single View CLINICAL HISTORY: CHEST PAIN COMPARISON: sp4 None TECHNIQUE: Single AP view of the chest. FINDINGS: Median sternotomy changes. Lung volumes adequate. Cardiac silhouette is normal in size. Mild bilateral interstitial thickening. No pneumothorax. No large pleural effusion. No focal consolidation. No acute bony finding. IMPRESSION: Mild bilateral interstitial thickening, could represent mild pulmonary edema. 01:38 ED course: TECHNIQUE: Noncontrast CT head. All CT scans at this facility use dose sp4 modulation, iterative reconstruction, and/or weight based dosing when appropriate to reduce radiation dose to as low as reasonably achievable. COMPARISON: None. FINDINGS: Parenchyma: No acute hemorrhage, large territorial infarction, or mass effect. Ventricles and extra-axial spaces: Appropriate for age. Visualized paranasal sinuses: Clear. Mastoid air cells: Clear. Bones: No acute focal abnormality. Additional comment: Intracranial atherosclerosis. IMPRESSION: No acute intracranial findings. . 01:47 Differential Diagnosis: Bronchitis Influenza Upper Respiratory Infection Sinusitis sp4 Pharyngitis Otitis Media. Data reviewed: vital signs, nurses notes, lab test result(s), EKG, radiologic studies, CT scan, plain films. Consideration of Admission/Observation Patient was admitted/placed on observation. Escalation of care including admission/observation considered. Management of patient was discussed with the following: Hospitalist: Transfer team . 03:08 ED course: Prior Echo report - LEFT VENTRICULAR WALL MOTION: NORMAL DOPPLER/COLOR FLOW: sp4 SEE BELOW COMMENTS: 1. NORMAL LEFT VENTRICULAR EJECTION FRACTION 55-60% 2. MODERATE CONCENTRIC LEFT VENTRICULAR HYPERTROPHY 3. MILD MITRAL REGURGITATION 4. GRADE I DIASTOLIC DYSFUNCTION TECHNOLOGIST: SARA MALCOLM Dictated By: Geraldo Felton 12/28/22 1600 . 03:40 ED course: Was discussed with [facility] and accepted there for evaluation of sp4 diastolic heart failure with elevated troponin. 04/02 23:22 Order name: Basic Metabolic Panel; Complete Time: 01:37 sp4 04/02 23:22 Order name: CBC with Diff; Complete Time: 01:37 sp4 04/02 23:22 Order name: LFT's; Complete Time: 01:37 sp4 06/18 23:22 Order name: Magnesium; Complete Time: 01:37 sp4 04/02 23:22 Order name: NT PRO-BNP; Complete Time: 01:37 sp4 04/02 23:22 Order name: PT-INR; Complete Time: 01:37 sp4 04/02 23:22 Order name: Troponin HS; Complete Time: 01:37 sp4 04/02 23:22 Order name: SARS RAPID; Complete Time: 01:37 sp4 04/02 23:22 Order name: XRAY Chest (1 view) sp4 04/02 23:49 Order name: CT Head Brain wo Cont 4 04/02 23:22 Order name: EKG; Complete Time: 23:23 sp4 04/02 23:22 Order name: Cardiac monitoring; Complete Time: 00:52 sp4 04/02 23:22 Order name: EKG - Nurse/Tech; Complete Time: 01:06 sp4 04/02 23:22 Order name: IV Saline Lock; Complete Time: 23:46 sp4 04/02 23:22 Order name: Labs collected and sent; Complete Time: 23:46 sp4 04/02 23:22 Order name: O2 Per Protocol; Complete Time: 00:38 sp4 04/02 23:22 Order name: O2 Sat Monitoring; Complete Time: 00:38 sp4 EC:43 Rate is 59 beats/min. Rhythm is regular, Sinus bradycardia. Left axis deviation noted. sp4 [place] interval is normal. QRS interval is prolonged. QT interval is normal. No Q waves. T waves are Normal. No ST changes noted. Clinical impression: No evidence of ischemia. Interpreted by me. Reviewed by me. Administered Medications: 00:40 Drug: Ondansetron IVP 4 mg IVP once; over 2 minutes Route: IVP; Site: left antecubital; ha1 01:00 Follow up: Response: No adverse reaction ha1 00:42 Drug: diphenhydrAMINE IVP 25 mg IVP once Route: IVP; Site: left antecubital; ha1 01:00 Follow up: Response: No adverse reaction; Marked relief of symptoms ha1 00:45 Drug: Ketorolac IVP 30 mg IVP once Route: IVP; Site: left antecubital; ha1 01:00 Follow up: Response: No adverse reaction; Marked relief of symptoms ha1 00:50 Drug: metoCLOPramide IVP 10 mg IVP once; over 1 to 2 minutes Route: IVP; Site: left ha1 antecubital; 01:00 Follow up: Response: No adverse reaction; Marked relief of symptoms ha1 00:53 Drug: morphine IVP or IV 6 mg IVP once over 4 mins Route: IVP; Infused Over: 4 mins; ha1 Site: left antecubital; 01:05 Follow up: Response: No adverse reaction; Marked relief of symptoms; Pain is decreased; ha1 RASS: Alert and Calm (0) 01:46 Drug: HydrALAZINE PO 50 mg PO once Route: PO; lc8 02:00 Follow up: Response: No adverse reaction ha1 01:47 Drug: Furosemide IVP 40 mg IVP once; give over 2 minutes Route: IVP; Site: right lc8 antecubital; 02:30 Follow up: Response: No adverse reaction ha1 02:02 Drug: [place] PO 10 mg-325 mg 1 tabs PO once Route: PO; ha1 02:30 Follow up: Response: No adverse reaction ha1 02:03 Not Given (Physician Discretion): [id number] mg/kg Sub-Q once ha1 02:03 Drug: Enoxaparin Sub-Q 100 mg Sub-Q once Route: Sub-Q; Site: abdomen; ha1 02:30 Follow up: Response: No adverse reaction ha1 Disposition Summary: 04/03/24 01:47 Transfer Ordered Notes: Reason: Higher level of care sp4 Condition: Stable sp4 Problem: new sp4 Symptoms: have improved sp4 Transfer Location: [facility](04/03/24 03:40) sp4 Accepting Physician: [facility] Attending (04/03/24 05:04) ha1 Diagnosis - Acute on chronic diastolic (congestive) heart failure sp4 - Essential (primary) hypertension sp4 - NSTEMI, diastolic heart failure, pulmonary edema, hypertensive urgency sp4 Forms: - Medication Reconciliation Form sp4 - SBAR form sp4 Signatures: Dispatcher [employer] EDRicki Paiz RN RN as6 Junie Villar RN RN ha1 Kishore Koroma MD MD sp4 Drew Pate RN RN lc8 Corrections: (The following items were deleted from the chart) 04/02 23:23 23:23 BASIC METABOLIC PANEL+C.LAB.BRZ ordered. EDMS EDMS 23:23 23:23 CBC+H.LAB.BRZ ordered. EDMS EDMS 23:23 23:23 HEPATIC FUNCTION+C.LAB.BRZ ordered. EDMS EDMS 23:23 23:23 MAGNESIUM+C.LAB.BRZ ordered. EDMS EDMS 23:23 23:23 PROBNP+C.LAB.BRZ ordered. EDMS EDMS 23:23 23:23 PROTIME (+INR)+COAG.LAB.BRZ ordered. EDMS EDMS 23:23 23:23 Troponin High Sensitivity+C.LAB.BRZ ordered. EDMS EDMS 04/03 03:40 01:47 [facility] Attending sp4 sp4 03:40 01:47 [facility] sp4 sp4 05:04 03:40 [facility] Attending sp4 ha1
[2024-04-03] MEDS ORDERED: HYDROCODONE/APAP 10/325 TAB ONE (01:57)
[2024-04-03] MEDS ORDERED: ENOXAPARIN 100 MG/ML SYR SQ ONE (01:57)
[2024-04-03 05:23] VITALS: BP 144/83; TEMP 97.8; O2SAT 95
--- NOTE | 2024-04-04 09:55 | RAD REPORT ---
EXAM DESCRIPTION: Chest Single View CLINICAL HISTORY: CHEST PAIN COMPARISON: None TECHNIQUE: Single AP view of the chest. FINDINGS: Median sternotomy changes. Lung volumes adequate. Cardiac silhouette is normal in size. Mild bilateral interstitial thickening. No pneumothorax. No large pleural effusion. No focal consolidation. No acute bony finding. IMPRESSION: Mild bilateral interstitial thickening, could represent mild pulmonary edema. Electronically signed by: Guerline Quach MD 04/03/2024 12:26 AM CDT RP Z9 Due to temporary technical issues with the PACS/Fluency reporting system, reports are being signed by the in house radiologist without review as a courtesy to ensure prompt reporting. The interpreting r adiologist is fully responsible for the content of the report.
--- NOTE | 2024-04-04 09:58 | RAD REPORT ---
EXAM DESCRIPTION: Head Brain Wo Cont RadLex: CT HEAD WITHOUT IV CONTRAST CLINICAL HISTORY: 53 years Male; acute headache; Bed Name: 7 TECHNIQUE: Noncontrast CT head. All CT scans at this facility use dose modulation, iterative reconstruction, and/or weight based dosi ng when appropriate to reduce radiation dose to as low as reasonably achievable. COMPARISON: None. FINDINGS: Parenchyma: No acute hemorrhage, large territorial infarction, or mass effect. Ventricles and extra-axial spaces: Appropriate for age. Visualized paranasal sinuses: Clear. Mastoid air cells: Clear. Bones: No acute focal abnormality. Additional comment: Intracranial atherosclerosis. IMPRESSION: No acute intracranial findings. Electronically signed by: Guerline Quach MD 04/03/2024 01:08 AM CDT RP Z9 Due to temporary technical issues with the PACS/Fluency reporting system, reports are being signed by the in house radiologist without review as a courtesy to ensure prompt reporting. The interpreting r adiologist is fully responsible for the content of the report.
--- NOTE | 2024-04-04 16:19 | EKG ---
Test Date: 2024-04-03 Test Time: 01:02:53 [employer] Project Planner: CLARA MEASUREMENT RESULTS: Intervals: Rate: 59 GA: 162 QRSD: 150 QT: 480 QTc: 475 [place]: P: GA: 162 QRS: -46 T: 160 INTERPRETIVE STATEMENTS: Sinus bradycardia Left axis deviation Right bundle branch block T wave abnormality, consider lateral ischemia Abnormal ECG Compared to ECG 04/19/2023 19:13:49 Left-axis deviation now present T-wave abnormality now present Possible ischemia now present Sinus rhythm no longer present Left anterior fascicular block no longer present Bifascicular block no longer present Electronically Signed On 04-04-24 16:16:45 CDT by Geraldo Felton
== END 2024-04-03 05:04 | disposition short-term general hospital (02) ==
LOC: ER 22:58
DX: I50.33 Acute on chronic diastolic (congestive) heart failure (principal); I10 Essential (primary) hypertension; I21.4 Non-ST elevation (NSTEMI) myocardial infarction; I16.0 Hypertensive urgency; J81.1 Chronic pulmonary edema; Z11.52 Encounter for screening for COVID-19
CPT/HCPCS: 93005; 85025; 80048; 36415; 83735; 85610; 80076; 84484; 83880; 70450; 71045; 87811; J1650; J2765; J1200; J1940; J2270; J2405